=== PATIENT | male | born 1985 | race Caucasian/White ===

== ENCOUNTER 2020-04-15 07:22 | Emergency (ER) | payer MEDICARE, MEDICAID, SELFPAY ==
[2020-04-15 07:23] VITALS: BP 115/84; PULSE 90; RESP 18; TEMP 36.6; O2SAT 98; BMI 22.0
--- NOTE | 2020-04-15 07:33 | ED.VIS.GEN ---
History of Present Illness Chief Complaint: Upper Extremity Injury Narrative: 34-year-old male with no significant past medical history presents with concern for left arm pain. States it is been hurting over the past 1 week. Denies any trauma. States that he feels he may have pulled a muscle. States that the pain is in his left shoulder and down into his left elbow. States it is worse with movement. Patient is getting good pain relief from naproxen. Patient was here visiting another patient and felt like he should be seen for this issue. Denies any numbness or tingling. Past Medical History - Allergies and Home Meds Allergies/Adverse Reactions: Allergies Penicillins Allergy (Verified 04/15/20 07:25) Unknown sumatriptan [From Imitrex] Allergy (Verified 04/15/20 07:25) Unknown sumatriptan succinate [From Imitrex] Allergy (Verified 04/15/20 07:25) Unknown amoxicillin [Amoxicillin] Adverse Reaction (Verified 04/15/20 07:25) Nausea/Vom/Diarrhea Primary Care Physician: [facility] ,Out of [Primary Care Provider] - Prior records reviewed: Yes Past Medical History: None Surgical History: noncontributory Smoking Status: Current some day smoker Alcohol: None Drugs: None Review of Systems General: Denies: Chills, Fever, Sweats Eyes: Denies: Visual changes - bilaterally, Diplopia ENT: Denies: Rhinorrhea, Sore throat Cardiovascular: Denies: Chest pain, Palpitations Respiratory: Denies: Dyspnea, Cough, Dyspnea on exertion Gastrointestinal: Denies: Abdominal pain, Nausea, Vomiting, Diarrhea, Melena, Hematochezia Genitourinary: Denies: Dysuria, Hematuria, Frequency Musculoskeletal: Reports: Myalgias, Arthralgias. Denies: Back pain, Extremity Pain Skin: Denies: Rash, Wounds Neurological: Denies: Headache, Weakness, Numbness Physical Exam Vital Signs/Narrative: Vital Signs Temp Pulse Resp BP Pulse Ox 04/15/20 07:23 98 F 90 18 115/84 H 98 Inital Vital Signs reviewed: Yes General: Well nourished, Well developed, No Acute Distress Head: Normocephalic, Atraumatic Eyes: Perrl, EOMI ENT: Moist mucous membranes, No rhinorrhea Neck: Supple, Nontender Cardiovascular: Regular rate, Regular rhythm, No murmurs Respiratory: No distress, CTA bilaterally, Chest nontender Abdomen: Soft, Nontender, Nondistended, Normal bowel sounds Back: Nontender, Normal Inspection Extremities: Nontender, No edema Skin: Normal color, No rash Neurological: Alert, Oriented x3, Cranial nerves II-XII grossly intact, Normal Strength, Normal Sensation Psychological: Normal affect, Normal Mood Diagnostic/Tx/Re-eval - Medical Decision Making Appears well and nontoxic. Vital signs within normal limits. No indication for imaging at this time. Patient will be given Conner wrap and advised on rest, ice, elevation, compression. Advised to continue with naproxen. Will be given family medicine follow-up if he has continued pain. Discharged home in stable condition. ED Disposition - Plan for ED Patient: Disposition: Home or Assisted Living Diagnosis: Muscle strain Instructions: Treating?Strains and Sprains, R.I.C.E. Referrals: Nay Rios MD [STAFF PHYSICIAN] -
[2020-04-15 07:55] VITALS: PULSE 88; RESP 17; O2SAT 97
== END 2020-04-15 08:00 | disposition home or self-care (01) ==
LOC: ED 07:56
PROVIDERS: Emergency Provider Emergency Medicine
DX: T14.8XXA Other injury of unspecified body region, initial encounter (principal); X58.XXXA Exposure to other specified factors, initial encounter
CPT/HCPCS: 99282

== ENCOUNTER 2021-06-10 15:57 | Emergency (ER) | payer MEDICARE, MEDICAID, SELFPAY ==
[2021-06-10 15:57] VITALS: BP 125/73; PULSE 104; RESP 16; TEMP 37.9; O2SAT 95; BMI 21.2
--- NOTE | 2021-06-10 17:34 | EDS_ITS ---
HPI History of Present Illness Chief Complaint: General Illness Detail of Chief Complaint: 2-week history of respiratory symptoms. Informant: patient Onset/Context/Timing Onset: Weeks Context: Gradual Onset Timing: Continuous Current Severity: Mild Maximum Severity: Mild Narrative Narrative: 35-year-old male no sniffing past medical history. Since last 2 weeks he has had nasal drainage and cough. Intermittent subjective fever and chills. He was not vaccinated. He saw his primary care physician to provide a Z-Phillip for possible sinusitis. He is also on Mucinex. He denies any hemoptysis. He denies any significant shortness of breath. Prior similar symptoms: No Recent Illness/Hospitalization: No PFSH PFSH Home Medications Omeprazole [Prilosec] 40 mg PO DAILY 06/10/17 [History Last Taken Unknown] buspirone 10 mg PO TID PRN 06/10/17 [History Last Taken Unknown] dicyclomine 20 mg PO 4X/DAY PRN PRN 06/10/17 [History Last Taken Unknown] famotidine [Pepcid] 40 mg PO QHS 06/10/17 [History Last Taken Unknown] loratadine [Allergy Relief] 10 mg PO DAILY 06/10/17 [History Last Taken Unknown] melatonin-pyridoxine HCl (B6) 1 ea PO QHS 06/10/17 [History Last Taken Unknown] ondansetron [Zofran Odt] 8 mg PO Q8H PRN PRN 06/10/17 [History Last Taken Unknown] promethazine 25 mg PO Q6H PRN PRN 06/10/17 [History Last Taken Unknown] naproxen 500 mg PO BID PRN PRN #10 tab 08/22/17 [Rx Last Taken Unknown] dexamethasone [Decadron] 6 mg PO DAILY 6 Days #6 tab 06/10/21 [Rx Last Taken Unknown] Allergy/AdvReac Type Severity Reaction Status Date / Time Penicillins Allergy Unknown Verified 06/10/21 16:03 sumatriptan [From Imitrex] Allergy Unknown Verified 06/10/21 16:03 sumatriptan succinate Allergy Unknown Verified 06/10/21 16:03 [From Imitrex] amoxicillin [Amoxicillin] AdvReac Nausea/Vom/ Verified 06/10/21 16:03 Diarrhea Social History Smoking Status: Current every day smoker tobacco type: cigarettes ROS ROS ED ROS Narrative Fever, chills and cough Review of Systems ROS Unobtainable: Denies due to encephalopathy Constitutional Constitutional ED: Reports chills and fever(s) Eyes Eyes: Denies change in vision ENT ENT ED: Denies ear pain or sore throat Cardiovascular Cardiovascular: Denies chest pain Respiratory/Chest Respiratory/Chest: Reports cough; Denies dyspnea Gastrointestinal Gastrointestinal: Denies abdominal pain, diarrhea, nausea or vomiting Genitourinary Genitourinary ED: Denies dysuria or hematuria Musculoskeletal Musculoskeletal: Reports myalgias Integumentary Denies rash Neurologic Neurologic: Denies headache(s) Psychiatric Psychiatric: Denies depression Endocrine Endocrinology: Denies polyuria Allergic/Immunologic Allergic/Immunologic ED: Denies urticaria EXAM Physical Exam Narrative Exam Narrative: Well-appearing young male no acute distress. Vital signs stable. Low-grade temperature 100.3. Does not look septic or toxic. HEENT exam unremarkable. Neck nontender no lymphadenopathy. Lungs clear to auscultation bilaterally. No rales rhonchi or wheezing no distress. Heart regular rhythm rate about 100 no murmur. Abdomen soft nontender. Moving all 4 extremities. Calves nontender no edema no cords. Neurologically is awake alert with no focal motor deficits. Const Vital Signs: 06/10/21 15:57 06/10/21 17:33 Temperature 100.3 F H Temperature Source Oral Pulse Rate 104 H Respiratory Rate 16 Respiratory Effort Normal Non-Labored Respiratory Pattern Normal Blood Pressure 125/73 H Blood Pressure Mean 90 Pulse Ox 95 Oxygen Delivery Method Room Air Positive well nourished and well developed; Negative for obese, cachectic, contractures or unkempt General Appearance ED: well developed and NAD; Negative for unkempt, cachectic, contractures, cyanotic or diaphoretic Nutritional Appearance: Negative for cachectic or obese HEENT Reports moist mucous membranes Negative for trauma or tenderness Eyes PERRL and EOMs intact bilaterally Neck no lymphadenopathy, supple and no JVD General: Negative for tenderness Chest Wall inspection of chest normal Resp normal respiratory effort and clear to auscultation bilaterally Auscultation: Negative for rales, rhonchi or wheezes Cardio regular rate, regular rhythm, S1 normal heart sound, S2 normal heart sound and no murmurs GI normal to inspection, nondistended, normoactive bowel sounds, non-tender, non- distended and no masses Inspection: Negative for abdominal distention Auscultation: normoactive bowel sounds Palpation: soft; Negative for tender, guarding or rebound tenderness present Back/Spine no CVA tenderness Extremity normal to inspection General Extremety ED: Negative for edema or tenderness General Extremity: Negative for edema Neuro oriented x3 and CN's II-XII intact bilaterally Sensorium / Orientation: alert; Negative for lethargic or stuporous Motor Exam: strength 5/5 throughout Psych mental status grossly normal Appearance: Negative for unkempt Skin no rashes or lesions noted and no wounds MDM MDM MDM Narrative Medical decision making narrative: Patient with Covid. His exam is benign. He is not hypoxic and altogether needs a further testing. He will continue his current antibiotic Zithromax. I explained he may not think that would do anything if he has Covid alone. If there is an underlying pneumonia it may be beneficial. He does not need a chest x-ray. He will be started on Decadron once a day for 7 days. First dose given in ER. Follow-up with his primary care physician. Lab Data Attestation: I reviewed the patient's lab results. Lab results narrative: Covid positive. Discharge Plan Triage Chief Complaint: General Illness ED Provider: Marco Antonio Cintron Dx/Rx/DC Orders Clinical Impression: COVID-19 Instructions: Coronavirus Disease 2019 (COVID-19): Overview Prescriptions: New dexamethasone [Decadron] 6 mg tablet 6 mg PO DAILY 6 Days Qty: 6 RF: 0 No Action buspirone 5 MG tablet 10 mg PO TID PRN (Reason: Anxiety) RF: 0 ondansetron [Zofran ODT] 8 MG tablet,disintegrating 8 mg PO Q8H PRN PRN (Reason: Nausea) RF: 0 promethazine 25 MG tablet 25 mg PO Q6H PRN PRN (Reason: Nausea) RF: 0 dicyclomine 10 MG capsule 20 mg PO 4X/DAY PRN PRN (Reason: Pain) RF: 0 loratadine [Allergy Relief (loratadine)] 10 MG tablet 10 mg PO DAILY RF: 0 melatonin-pyridoxine HCl (B6) 1 EACH tablet, IR and ER, biphasic 1 ea PO QHS RF: 0 Omeprazole [Prilosec] 40 MG capsule 40 mg PO DAILY RF: 0 famotidine [Pepcid] 40 MG tablet 40 mg PO QHS RF: 0 naproxen 500 MG tablet 500 mg PO BID PRN PRN (Reason: Pain) Qty: 10 RF: 0 Primary Care Provider: Care Physician,No Primary Referrals: Care Physician,No Primary [Primary Care Provider] - Activity Restrictions/Additional Instructions: Plenty of fluids and rest. Tylenol for fever. Decadron which is a steroid once a day for the next 7 days. Follow-up with your doctor if you are not improving or return if you feel a lot worse. Disposition Disposition: Home, Self Care
[2021-06-10] MEDS: dexAMETHasone 4 MG Tablet 6 MG PO (17:54)
[2021-06-10 17:59] VITALS: PULSE 94; RESP 17; O2SAT 97
== END 2021-06-10 18:00 | disposition home or self-care (01) ==
LOC: ED 17:45
PROVIDERS: Emergency Provider Emergency Medicine
DX: U07.1 COVID-19 (principal); F17.210 Nicotine dependence, cigarettes, uncomplicated
CPT/HCPCS: 87426; 99284

== ENCOUNTER 2021-06-24 06:56 | Emergency (ER) | payer MEDICARE, MEDICAID, SELFPAY ==
[2021-06-24 06:57] VITALS: BP 98/82; PULSE 100; RESP 24; TEMP 37; O2SAT 90; BMI 21.4
--- NOTE | 2021-06-24 07:02 | ED.VIS.GI ---
HPI HPI - GI History of Present Illness Chief Complaint: Abd Pain Informant: patient and EMS Abdominal Pain/Flank Pain Onset: Weeks Context: Sudden Onset Timing: Intermittent and Waxes and wanes Quality: Aching and Burning Location: Diffuse Current Severity: Mild Maximum Severity: Moderate Worsened by: Nothing Relieved by: Nothing Nausea/Vomiting/Emesis GI Symptom: Positive for Nausea; Negative for Vomiting Onset: Today Severity: Mild Diarrhea/Melena/Hematochezia GI Symptom: Negative for Diarrhea, Melena and Hematochezia Associated Symptoms Associated Symptoms: Negative for Dysuria, Frequency and Hematuria Narrative Narrative: Patient is a 35-year-old male who arrived by ambulance because of abdominal pain. Squad informed me that walking from his residence to the ambulance without oxygen he desaturated. He apparently is on 3 L by nasal cannula. He was diagnosed on June 10 with Covid. He is on home oxygen. He was prescribed Decadron. He states he needs to see a activity aide. He states he needs a scope . He complains of diffuse crampy achy abdominal pain. He took an acid without improvement. He denies vomiting. He denies diarrhea. He denies black or maroon-colored stool. He is not on an anticoagulant. He also complains of generalized aches. He reported subjective fever. He has a past medical history of anxiety. He is presently on Prilosec and an antiemetic. Patient denies headache, visual, ocular auditory symptoms. He denies increased shortness of breath. He denies productive cough. He denies chest discomfort. Prior similar symptoms: Yes Recent Illness/Hospitalization: Yes (Recent visit and hospitalization at [facility] Medical History Anxiety Home Medications Omeprazole [Prilosec] 40 mg PO DAILY 06/10/17 [History Last Taken Unknown] buspirone 10 mg PO TID PRN 06/10/17 [History Last Taken Unknown] dicyclomine 20 mg PO 4X/DAY PRN PRN 06/10/17 [History Last Taken Unknown] famotidine [Pepcid] 40 mg PO QHS 06/10/17 [History Last Taken Unknown] loratadine [Allergy Relief] 10 mg PO DAILY 06/10/17 [History Last Taken Unknown] melatonin-pyridoxine HCl (B6) 1 ea PO QHS 06/10/17 [History Last Taken Unknown] ondansetron [Zofran Odt] 8 mg PO Q8H PRN PRN 06/10/17 [History Last Taken Unknown] promethazine 25 mg PO Q6H PRN PRN 06/10/17 [History Last Taken Unknown] naproxen 500 mg PO BID PRN PRN #10 tab 08/22/17 [Rx Last Taken Unknown] dexamethasone [Decadron] 6 mg PO DAILY 6 Days #6 tab 06/10/21 [Rx Last Taken Unknown] Allergy/AdvReac Type Severity Reaction Status Date / Time Penicillins Allergy Unknown Verified 06/24/21 06:57 sumatriptan [From Imitrex] Allergy Unknown Verified 06/24/21 06:57 sumatriptan succinate Allergy Unknown Verified 06/24/21 06:57 [From Imitrex] amoxicillin [Amoxicillin] AdvReac Nausea/Vom/ Verified 06/24/21 06:57 Diarrhea Social History (Updated 06/24/21 @ 07:[address] Michel Stephenson MD) household members: none Smoking Status: Former smoker alcohol intake: current details: Patient states he currently is not drinking any alcoholic beverages substance use type: does not use ROS ROS ED Constitutional Constitutional ED: Reports fever(s); Denies chills, subjective, sweats or weight loss ENT ENT ED: Denies ear pain, rhinorrhea or sore throat Cardiovascular Cardiovascular: Denies chest pain, orthopnea, palpitations or paroxysmal nocturnal dyspnea Respiratory/Chest Respiratory/Chest: Reports cough, dyspnea and dyspnea on exertion; Denies orthopnea, paroxysmal nocturnal dyspnea or sputum Gastrointestinal Gastrointestinal: Reports abdominal pain and nausea; Denies constipation, diarrhea, melena or vomiting Genitourinary Genitourinary ED: Denies dysuria, hematuria or urinary frequency Musculoskeletal Musculoskeletal: Reports arthralgias and myalgias; Denies back pain or neck pain Integumentary Denies rash Neurologic Neurologic: Reports weakness; Denies headache(s) or paresthesias Psychiatric Psychiatric: Reports anxiety and depression Hematologic/Lymphatic Hematologic/Lymphatic: Denies easy bleeding or easy bruising EXAM Physical Exam Const Vital Signs: 06/24/21 06:57 Temperature 98.6 F Temperature Source Temporal Pulse Rate 100 Respiratory Rate 24 H Blood Pressure 98/82 H Blood Pressure Mean 87 Pulse Ox 90 Oxygen Delivery Method Room Air Positive well nourished and well developed General Appearance ED: well developed HEENT Reports TM's clear and moist mucous membranes normocephalic and atraumatic Tympanic Membrane ED: Yes TM's clear Eyes PERRL and EOMs intact bilaterally General Eye ED: Negative for pale conjunctiva or scleral icterus Neck no lymphadenopathy, supple and no JVD Resp normal respiratory effort and No clear to auscultation bilaterally Auscultation: rales bilateral base Cardio regular rate, regular rhythm, S1 normal heart sound, S2 normal heart sound and no murmurs GI non-distended and no masses; Negative for non-tender Auscultation: normoactive bowel sounds Palpation: soft and tender epigastric; Negative for guarding or rigid Back/Spine no CVA tenderness Thoracic Spine / Upper Back: Negative for thoracic spinal tenderness Lumbar Spine / Lower Back: Negative for lumbar spinal tenderness Extremity full ROM General Extremety ED: Negative for edema or tenderness General Extremity: Negative for edema Neuro CN's II-XII intact bilaterally and moves all extremities Sensorium / Orientation: alert, oriented to person, oriented to place and oriented to time Psych thought process normal Mood & Affect: depressed Skin no wounds Lesions: no lesions Rashes: no rashes MDM MDM MDM Narrative Medical decision making narrative: Patient with abdominal pain and may represent abdominal pain unknown etiology, biliary disease, peptic ulcer disease versus Covid. Patient was treated with Bentyl and GI cocktail. CBC was obtained assess white count and H&H. Comprehensive metabolic panel to assess liver enzymes and renal function. Lipase was ordered since he is on pancreatic enzymes. Lab Data Attestation: I reviewed the patient's lab results. Lab results narrative: CBC is unremarkable. Comprehensive metabolic panel was marked for elevated AST and ALT. This has been seen with Covid. Patient does have Covid. Lipase was normal. Patient requested antiemetic prior to discharge. Labs: Laboratory Results - last 24 hr 06/24/21 06/24/21 07:30 07:30 WBC 5.3 RBC 4.63 Hgb 14.7 Hct 42.5 MCV 91.8 MCH 31.7 MCHC 34.6 RDW Std Deviation 39.5 RDW Coeff of Iggy 11.8 Plt Count 280 MPV 9.1 Immature Gran % (Auto) 4.000 H Neut % (Auto) 49.0 Lymph % (Auto) 28.6 Addison % (Auto) 15.8 H Eos % (Auto) 1.5 Baso % (Auto) 1.1 H Absolute Neuts (auto) 2.6 Absolute Lymphs (auto) 1.50 Nucleated RBC % 0 Sodium 137 Potassium 3.9 Chloride 103 Carbon Dioxide 30.0 Anion Gap 4 L BUN 12 Creatinine 0.74 Estim Creat Clear Calc 120.70 Est GFR (MDRD) Af Amer 155 Est GFR (MDRD) Non-Af 128 BUN/Creatinine Ratio 16.2 Glucose 99 Calcium 9.0 Total Bilirubin 0.50 AST 98 H ALT 136 H Alkaline Phosphatase 77 Total Protein 7.3 Albumin 2.5 L Globulin 4.8 H Albumin/Globulin Ratio 0.5 L Lipase 192 Discharge Plan Triage Chief Complaint: Abd Pain ED Provider: Michel Stephenson Dx/Rx/DC Orders Clinical Impression: COVID-19, Elevated liver transaminase level, Abdominal pain Instructions: Coronavirus Disease 2019 (COVID-19): Caring for Yourself or Others Prescriptions: No Action buspirone 5 MG tablet 10 mg PO TID PRN (Reason: Anxiety) RF: 0 ondansetron [Zofran ODT] 8 MG tablet,disintegrating 8 mg PO Q8H PRN PRN (Reason: Nausea) RF: 0 promethazine 25 MG tablet 25 mg PO Q6H PRN PRN (Reason: Nausea) RF: 0 dicyclomine 10 MG capsule 20 mg PO 4X/DAY PRN PRN (Reason: Pain) RF: 0 loratadine [Allergy Relief (loratadine)] 10 MG tablet 10 mg PO DAILY RF: 0 melatonin-pyridoxine HCl (B6) 1 EACH tablet, IR and ER, biphasic 1 ea PO QHS RF: 0 Omeprazole [Prilosec] 40 MG capsule 40 mg PO DAILY RF: 0 famotidine [Pepcid] 40 MG tablet 40 mg PO QHS RF: 0 naproxen 500 MG tablet 500 mg PO BID PRN PRN (Reason: Pain) Qty: 10 RF: 0 dexamethasone [Decadron] 6 mg tablet 6 mg PO DAILY 6 Days Qty: 6 RF: 0 Primary Care Provider: Care Physician,No Primary Referrals: Care Physician,No Primary [Primary Care Provider] - Doctor,Your [STAFF PHYSICIAN] - 1 Week if not improving Disposition Disposition: Home, Self Care
[2021-06-24] MEDS: Mag Hydrox/Al Hydrox/Simeth 30 ML UDC PO (07:37)
[2021-06-24 07:38] LABS: Absolute Neutrophil Count 2.6 X10^3/uL (2.0-7.7); Basophil# 0.06 X10^3/uL; Basophil% 1.1 % (0-1); Eosinophil# 0.08 X10^3/uL; Eosinophils% 1.5 % (0-5); Hematocrit 42.5 % (40-54); Hemoglobin 14.7 g/dL (13.0-16.5); Lymphocyte % 28.6 % (19-41); Mean Corp Hgb Conc 34.6 g/dL (32-36); Mean Corpuscular Hgb 31.7 pg (27.0-32.0); Mean Corpuscular Volume 91.8 fL (80-94); Mean Platelet Vol. 9.1 fl (6.2-12.0); Monocyte# 0.83 X10^3/uL; Monocyte% 15.8 % (0-10); NRBC Flagged by Analyzer 0 % (0-5); Neutrophil # 2.57 X10^3/uL (2.7-7.7); Platelet Count 280 K/mm3 (150-450); RBC Distribution Width CV 11.8 % (11.6-14.6); RBC Distribution Width SD 39.5 fl (35.1-43.9); Red Blood Count 4.63 M/mm3 (4.6-6.2); White Blood Count 5.3 K/mm3 (4.4-11.0)
[2021-06-24 08:05] LABS: ALB/GLOB Ratio 0.5 RATIO (0.9-2.4); AST(SGOT) 98 U/L (15-37); Alanine Aminotransfer ALT/SGPT 136 U/L (16-61); Albumin, Serum 2.5 g/dL (3.2-5.0); Alkaline Phosphatase 77 U/L (45-117); Anion Gap 4 (5-15); BUN 12 mg/dL (7-18); BUN/Creat Ratio 16.2 RATIO (10-20); Chloride 103 mmol/L (98-107); Creatinine, Serum 0.74 mg/dL (0.70-1.30); EST Glomerular Filtration Rate 128 mL/min (>60); Est Glom Filt Rate - Afr Amer 155 mL/min (>60); Globulin 4.8 g/dL (2.2-4.2); Glucose 99 mg/dL (74-106); Lipase 192 U/L (73-393); Potassium 3.9 mmol/L (3.5-5.1); Protein, Total 7.3 g/dL (6.4-8.2); Sodium Level 137 mmol/L (136-145)
[2021-06-24] MEDS: Ondansetron ODT 4 MG Tablet PO (09:10)
[2021-06-24 09:11] VITALS: PULSE 78; RESP 18; O2SAT 93
== END 2021-06-24 10:34 | disposition home or self-care (01) ==
PROVIDERS: Emergency Provider Emergency Medicine
DX: U07.1 COVID-19 (principal); R74.01 Elevation of levels of liver transaminase levels; R10.9 Unspecified abdominal pain; Z87.891 Personal history of nicotine dependence
CPT/HCPCS: 36415; 80053; 83690; 85025; 99285

== ENCOUNTER 2021-06-27 01:59 | Emergency (ER) | payer MEDICARE, MEDICAID, SELFPAY ==
[2021-06-27 02:00] VITALS: BP 127/97; PULSE 124; RESP 26; TEMP 36.8; O2SAT 89; BMI 20.2
[2021-06-27 02:14] VITALS: PULSE 115; RESP 20; O2SAT 94
--- NOTE | 2021-06-27 02:33 | EX.ED.DYSGE1 ---
HPI History of Present Illness Chief Complaint: Anxiety Informant: patient Onset/Context/Timing Onset: Days Current Severity: Moderate Maximum Severity: Moderate Narrative Narrative: Patient presents secondary to anxiety. He states he is a history of anxiety and was diagnosed with Covid couple weeks ago. He is on home oxygen for Covid. He states this has made his anxiety worse. Tonight he could not get his mind to stop racing. He tried his normal medications at home approximately 6 or 7 hours ago without improvement. He called the squad early this morning. [facility] Medical History Anxiety Home Medications Omeprazole [Prilosec] 40 mg PO DAILY 06/10/17 [History Last Taken Unknown] buspirone 10 mg PO TID PRN 06/10/17 [History Last Taken Unknown] dicyclomine 20 mg PO 4X/DAY PRN PRN 06/10/17 [History Last Taken Unknown] famotidine [Pepcid] 40 mg PO QHS 06/10/17 [History Last Taken Unknown] loratadine [Allergy Relief] 10 mg PO DAILY 06/10/17 [History Last Taken Unknown] melatonin-pyridoxine HCl (B6) 1 ea PO QHS 06/10/17 [History Last Taken Unknown] ondansetron [Zofran Odt] 8 mg PO Q8H PRN PRN 06/10/17 [History Last Taken Unknown] promethazine 25 mg PO Q6H PRN PRN 06/10/17 [History Last Taken Unknown] naproxen 500 mg PO BID PRN PRN #10 tab 08/22/17 [Rx Last Taken Unknown] dexamethasone [Decadron] 6 mg PO DAILY 6 Days #6 tab 06/10/21 [Rx Last Taken Unknown] Allergy/AdvReac Type Severity Reaction Status Date / Time Penicillins Allergy Unknown Verified 06/24/21 06:57 sumatriptan [From Imitrex] Allergy Unknown Verified 06/24/21 06:57 sumatriptan succinate Allergy Unknown Verified 06/24/21 06:57 [From Imitrex] amoxicillin [Amoxicillin] AdvReac Nausea/Vom/ Verified 06/24/21 06:57 Diarrhea Social History household members: none Smoking Status: Former smoker alcohol intake: current details: Patient states he currently is not drinking any alcoholic beverages substance use type: does not use ROS ROS ED Constitutional Constitutional ED: Reports fever(s) and subjective ENT ENT ED: Denies rhinorrhea or sore throat Cardiovascular Cardiovascular: Denies chest pain Respiratory/Chest Respiratory/Chest: Reports cough and dyspnea Gastrointestinal Gastrointestinal: Denies diarrhea or vomiting Musculoskeletal Musculoskeletal: Reports myalgias Integumentary Denies rash Neurologic Neurologic: Denies headache(s) Psychiatric Psychiatric: Reports anxiety EXAM Physical Exam Const Vital Signs: 06/27/21 02:00 06/27/21 02:10 06/27/21 02:14 Temperature 98.2 F Temperature Source Temporal Pulse Rate 124 H 115 H Respiratory Rate 26 H 20 H Respiratory Effort Normal Respiratory Pattern Normal Blood Pressure 127/97 H Blood Pressure Mean 107 Pulse Ox 89 94 Oxygen Delivery Method Room Air Nasal Cannula Oxygen Flow Rate (L/min) 2 06/27/21 04:30 Temperature Temperature Source Pulse Rate 102 H Respiratory Rate 18 Respiratory Effort Respiratory Pattern Blood Pressure Blood Pressure Mean Pulse Ox 94 Oxygen Delivery Method Nasal Cannula Oxygen Flow Rate (L/min) 2 Positive well nourished and well developed General Appearance ED: well developed Eyes PERRL and EOMs intact bilaterally Neck supple Resp normal respiratory effort and clear to auscultation bilaterally Resp Narrative: Respiratory rate equals 17 at the time of my exam. Cardio regular rhythm Rate: tachycardic and other Other Details: Heart rate equals 104 at the time of my exam. GI normal to inspection, nondistended, normoactive bowel sounds and non-tender Palpation: soft Extremity normal to inspection Neuro oriented x3 Sensorium / Orientation: alert Psych Mood & Affect: anxious Skin no rashes or lesions noted MDM MDM MDM Narrative Medical decision making narrative: Patient was given 2 doses of Vistaril. He continued to complain of feeling very anxious. He was given 1 mg of p.o. Ativan. On repeat evaluation patient is sleeping comfortably. He will be discharged to home. He is referred to counseling center for help with his anxiety. Discharge Plan Triage Chief Complaint: Anxiety ED Provider: Pam Bear Dx/Rx/DC Orders Clinical Impression: Anxiety, COVID-19 Instructions: ED Anxiety Reaction Prescriptions: No Action buspirone 5 MG tablet 10 mg PO TID PRN (Reason: Anxiety) RF: 0 ondansetron [Zofran ODT] 8 MG tablet,disintegrating 8 mg PO Q8H PRN PRN (Reason: Nausea) RF: 0 promethazine 25 MG tablet 25 mg PO Q6H PRN PRN (Reason: Nausea) RF: 0 dicyclomine 10 MG capsule 20 mg PO 4X/DAY PRN PRN (Reason: Pain) RF: 0 loratadine [Allergy Relief (loratadine)] 10 MG tablet 10 mg PO DAILY RF: 0 melatonin-pyridoxine HCl (B6) 1 EACH tablet, IR and ER, biphasic 1 ea PO QHS RF: 0 Omeprazole [Prilosec] 40 MG capsule 40 mg PO DAILY RF: 0 famotidine [Pepcid] 40 MG tablet 40 mg PO QHS RF: 0 naproxen 500 MG tablet 500 mg PO BID PRN PRN (Reason: Pain) Qty: 10 RF: 0 dexamethasone [Decadron] 6 mg tablet 6 mg PO DAILY 6 Days Qty: 6 RF: 0 Primary Care Provider: Care Physician,No Primary Referrals: Counseling,Center [GROUP OF PHYSICIANS] - As soon as possible Care Physician,No Primary [Primary Care Provider] - Disposition Disposition: Home, Self Care
[2021-06-27] MEDS: hydrOXYzine PAM 25 MG Capsule PO ×2 (02:50→04:01)
[2021-06-27 04:30] VITALS: PULSE 102; RESP 18; O2SAT 94
[2021-06-27] MEDS: LORazepam 1 MG Tablet PO (05:16)
== END 2021-06-27 09:07 | disposition home or self-care (01) ==
PROVIDERS: Emergency Provider Emergency Medicine
DX: F41.9 Anxiety disorder, unspecified (principal); U07.1 COVID-19; Z87.891 Personal history of nicotine dependence
CPT/HCPCS: 99285; A4216

== ENCOUNTER 2021-06-28 15:08 | Observation (INO) | payer MEDICARE, MEDICAID, SELFPAY ==
[2021-06-28 15:08] VITALS: BP 124/77; PULSE 117; RESP 18; TEMP 36.1; O2SAT 94; BMI 21.2
[2021-06-28 19:02] VITALS: O2SAT 92
[2021-06-28 19:10] VITALS: O2SAT 98
--- NOTE | 2021-06-28 19:26 | RAD_ITS ---
STUDY: X-RAY CHEST REASON FOR EXAM: Male, 35 years old. cough TECHNIQUE: AP COMPARISON: None. FINDINGS: Multilobar reticular and consolidative opacities throughout the lungs and There is no demonstrated pleural abnormality. Normal size heart. Normal mediastinum and chen. Normal visualized pulmonary arteries. Normal visualized aortic arch and descending thoracic aorta. Normal visualized thoracic spine. Normal visualized ribs, clavicles, and shoulders. There is no demonstrated abnormality of the visualized soft tissue structures of the upper abdomen. RAD/Chest 1 View (Portable) IMPRESSION: Multifocal infiltrates with features commonly reported with COVID pneumonia. Electronically Signed: Nicholas Clinton MD (Brooks) at 20:01 EDT , Service support ,
--- NOTE | 2021-06-28 20:00 | EKG12_ITS ---
Test Reason : ANXIETY Blood Pressure : / mmHG Vent. Rate : 078 BPM Atrial Rate : 078 BPM P-R Int : 118 ms QRS Dur : 094 ms QT Int : 364 ms P-R-T Axes : 026 010 027 degrees QTc Int : 414 ms Normal sinus rhythm with sinus arrhythmia Normal ECG Confirmed by DANIS LOBO, KOKI ([id number]), editor at large JARAD GIMENEZ ([id number]) on 06/30/2021 1:25:34 PM Referred By: IVANNA Confirmed By:KOKI MOSCOSO MD
--- NOTE | 2021-06-28 20:25 | EX.ED.DYSGE1 ---
HPI History of Present Illness Chief Complaint: Anxiety Informant: patient Narrative Narrative: 35-year-old male presenting with shortness of breath and anxiety. Patient was diagnosed with Covid June 10. He is on home O2 for Covid. He presents due to worsening shortness of breath. He states he did not know he had Covid. He is very anxious on arrival. He feels he cannot care for himself at home. Prior similar symptoms: Yes Recent Illness/Hospitalization: No PFSH PFSH Medical History Anxiety Tobacco use Home Medications buspirone 10 mg PO TID PRN 06/10/17 [History Last Taken Unknown] dicyclomine 20 mg PO 4X/DAY PRN PRN 06/10/17 [History Last Taken Unknown] famotidine [Pepcid] 40 mg PO QHS 06/10/17 [History Last Taken Unknown] loratadine [Allergy Relief] 10 mg PO DAILY 06/10/17 [History Last Taken Unknown] melatonin-pyridoxine HCl (B6) 1 ea PO QHS 06/10/17 [History Last Taken Unknown] ondansetron [Zofran Odt] 8 mg PO Q8H PRN PRN 06/10/17 [History Last Taken Unknown] promethazine 25 mg PO Q6H PRN PRN 06/10/17 [History Last Taken Unknown] naproxen 500 mg PO BID PRN PRN #10 tab 08/22/17 [Rx Last Taken Unknown] quetiapine 06/28/21 [History Last Taken Unknown] Allergy/AdvReac Type Severity Reaction Status Date / Time Penicillins Allergy Unknown Verified 06/24/21 06:57 sumatriptan [From Imitrex] Allergy Unknown Verified 06/24/21 06:57 sumatriptan succinate Allergy Unknown Verified 06/24/21 06:57 [From Imitrex] amoxicillin [Amoxicillin] AdvReac Nausea/Vom/ Verified 06/24/21 06:57 Diarrhea Family History no significant family his Surgical History (Updated 06/28/21 @ 22:[address] María Merchant MD) No significant past surgical history Surgical History no surgical history Social History (Updated 06/28/21 @ 22:[address] María Merchant MD) household members: family Smoking Status: Former smoker Smokeless tobacco user: chewing tobacco how long ago did patient quit smoking: Former cigarette tobacco use, now chew tobacco 2-3 wads daily. alcohol intake: never details: Patient states he currently is not drinking any alcoholic beverages substance use type: does not use ROS ROS ED Constitutional Constitutional ED: Denies fever(s) Eyes Eyes: Denies change in vision ENT ENT ED: Reports rhinorrhea; Denies sore throat Cardiovascular Cardiovascular: Reports palpitations; Denies chest pain Respiratory/Chest Respiratory/Chest: Reports cough, dyspnea and dyspnea on exertion Gastrointestinal Gastrointestinal: Denies abdominal pain, diarrhea, nausea or vomiting Genitourinary Genitourinary ED: Denies dysuria Musculoskeletal Musculoskeletal: Denies myalgias Integumentary Denies rash Neurologic Neurologic: Denies headache(s) Psychiatric Psychiatric: Reports anxiety; Denies suicidal thoughts EXAM Physical Exam Const Vital Signs: 06/28/21 15:08 06/28/21 19:02 06/28/21 19:10 Temperature 97 F L Temperature Source Temporal Pulse Rate 117 H Respiratory Rate 18 Blood Pressure 124/77 H Blood Pressure Mean 92 Pulse Ox 94 92 98 Oxygen Delivery Method Nasal Cannula Nasal Cannula Nasal Cannula Oxygen Flow Rate (L/min) 2 2 2 06/28/21 22:53 Temperature 96.6 F L Temperature Source Temporal Pulse Rate 86 Respiratory Rate 18 Blood Pressure 122/74 H Blood Pressure Mean 90 Pulse Ox 96 Oxygen Delivery Method Nasal Cannula Oxygen Flow Rate (L/min) 2 Positive well nourished and well developed General Appearance ED: well developed HEENT Reports normocephalic and head/scalp atraumatic Eyes PERRL and EOMs intact bilaterally Neck supple General: Negative for tenderness Chest Wall inspection of chest normal Resp normal respiratory effort Auscultation: diminished lung sounds Cardio regular rate and regular rhythm GI non-tender and non-distended Palpation: soft; Negative for guarding or rebound tenderness present no CVA tenderness Extremity normal to inspection Neuro oriented x3 Sensorium / Orientation: alert Psych Mood & Affect: anxious MDM MDM MDM Narrative Medical decision making narrative: Pulse ox on 2 L is in the mid 80s. Chest x-ray was obtained and shows multifocal infiltrates. CBC shows white count 14.3. Chemistries unremarkable. Troponin is negative. D-dimer 0.62. Due to elevated D-dimer, CTA chest was obtained which shows no central PE, pneumomediastinum, no pneumothorax, multifocal infiltrates consistent with Covid pneumonia. Patient has been requiring 3 to 4 L nasal cannula oxygen. Discussed with hospitalist for observation. Lab Data Attestation: I reviewed the patient's lab results. Labs: Laboratory Results - last 24 hr 06/28/21 06/28/21 06/28/21 20:17 20:17 20:17 WBC 14.3 H RBC 4.76 Hgb 15.3 Hct 44.5 MCV 93.5 MCH 32.1 H MCHC 34.4 RDW Std Deviation 42.3 RDW Coeff of Iggy 12.3 Plt Count 323 MPV 9.3 Immature Gran % (Auto) 0.700 Neut % (Auto) 83.0 H Lymph % (Auto) 9.2 L Monona % (Auto) 6.9 Eos % (Auto) 0.0 Baso % (Auto) 0.2 Absolute Neuts (auto) 11.9 H Absolute Lymphs (auto) 1.32 Nucleated RBC % 0 D-Dimer Quant (PE/DVT) 0.62 H* Sodium 136 Potassium 3.8 Chloride 102 Carbon Dioxide 30.0 Anion Gap 4 L BUN 9 Creatinine 0.82 Estim Creat Clear Calc 115.09 Est GFR (MDRD) Af Amer 139 Est GFR (MDRD) Non-Af 115 BUN/Creatinine Ratio 11.0 Glucose 105 Calcium 9.3 Total Bilirubin Direct Bilirubin AST ALT Alkaline Phosphatase Troponin I High Sens 8 Total Protein Albumin Globulin 06/28/21 20:17 WBC RBC Hgb Hct MCV MCH MCHC RDW Std Deviation RDW Coeff of Iggy Plt Count MPV Immature Gran % (Auto) Neut % (Auto) Lymph % (Auto) Monona % (Auto) Eos % (Auto) Baso % (Auto) Absolute Neuts (auto) Absolute Lymphs (auto) Nucleated RBC % D-Dimer Quant (PE/DVT) Sodium Potassium Chloride Carbon Dioxide Anion Gap BUN Creatinine Estim Creat Clear Calc Est GFR (MDRD) Af Amer Est GFR (MDRD) Non-Af BUN/Creatinine Ratio Glucose Calcium Total Bilirubin 0.70 Direct Bilirubin 0.12 AST 40 H ALT 68 H Alkaline Phosphatase 78 Troponin I High Sens Total Protein 8.1 Albumin 3.2 Globulin 4.9 H Radiography Chest X-Ray - ED: 1 View, Read by ED Physician and Read by Radiologist Diagnostic Testing: Radiology Impression Chest X-Ray 06/28/21 19:26 IMPRESSION: Multifocal infiltrates with features commonly reported with COVID pneumonia. Electronically Signed: Nicholas Clinton MD (Brooks) at 20:01 EDT , Service support , Chest CTA 06/28/21 21:01 IMPRESSION: 1. No central segmental pulmonary embolism. 2. Pneumomediastinum. No pneumothorax. 3. Multifocal infiltrates with features commonly reported with COVID pneumonia. Electronically Signed: Nicholas Clinton MD (Brooks) at 21:39 EDT , Service support , EKG Initial EKG: Attestation: I personally reviewed and interpreted this EKG as follows: Interpretation: Sinus Rhythm and No Acute Injury Pattern Discharge Plan Dx/Rx/DC Orders Clinical Impression: Pneumonia due to COVID-19 virus, Hypoxia Disposition Disposition: Acute Care [facility]
[2021-06-28 20:26] LABS: Absolute Lymphocyte Count 1.32 X10^3/uL (0.83-4.51); Absolute Neutrophil Count 11.9 X10^3/uL (2.0-7.7); Basophil# 0.03 X10^3/uL; Basophil% 0.2 % (0-1); Hematocrit 44.5 % (40-54); Hemoglobin 15.3 g/dL (13.0-16.5); Lymphocyte # 1.32 X10^3/ul (0.83-4.51); Lymphocyte % 9.2 % (19-41); Mean Corp Hgb Conc 34.4 g/dL (32-36); Mean Corpuscular Hgb 32.1 pg (27.0-32.0); Mean Corpuscular Volume 93.5 fL (80-94); Mean Platelet Vol. 9.3 fl (6.2-12.0); Monocyte# 0.99 X10^3/uL; Monocyte% 6.9 % (0-10); NRBC Flagged by Analyzer 0 % (0-5); Neutrophil # 11.85 X10^3/uL (2.7-7.7); Platelet Count 323 K/mm3 (150-450); RBC Distribution Width CV 12.3 % (11.6-14.6); RBC Distribution Width SD 42.3 fl (35.1-43.9); Red Blood Count 4.76 M/mm3 (4.6-6.2); White Blood Count 14.3 K/mm3 (4.4-11.0)
[2021-06-28 20:44] LABS: D-Dimer Quantitative (DVT/PE) 0.62 FEU/ug/m (0.27-0.49)
--- NOTE | 2021-06-28 20:50 | HP.PCM.HOS_ITS ---
HPI - General General Date of Admission: 06/28/21 Date of Service: 06/28/21 Chief Complaint: Dyspnea, worsening, COVID Dx 06/10/21 on oxygen HPI Narrative The patient is a 35 y/o M w/ PMHx: Former cigarette tobacco use, now transitioned to Chew Tobacco, Severe Anxiety/Depression, Suspected possible Schizophrenia component, GERD who presents to the [facility] ED on 06/28/21 with significant increased anxiety and sensation of dyspnea despite appropriate oxygenation on supplemental 2 L nasal cannula originally diagnosed on 06/10/2021 in the ED secondary to fever, chills, headaches, cough and dyspnea. He was administered Decadron therapy which he notes completing. He frequently states he is afraid he is going to . He is unvaccinated. Work-up in the ED included T 97, heart rate 117, BP 124/77, respiratory rate 18, 92% on 2 L nasal cannula however did improved to 98% on 2 L, CBC with WBC 14.3, hemoglobin 15.3, platelet 323 with left shift, D-dimer 0.62, CMP with AST/ALT 40/68 otherwise not marked appearing, high-sensitivity troponin 8, chest x-ray with multifocal infiltrates consistent with Covid pneumonia, follow-up CTPA with no central segmental pulmonary embolism, evidence of moderate pneumomediastinum extending to the base of the neck, multifocal infiltrates consistent with Covid pneumonia. [facility] Medical History Anxiety Tobacco use Home Medications buspirone 10 mg PO TID PRN 06/10/17 [History Last Taken Unknown] dicyclomine 20 mg PO 4X/DAY PRN PRN 06/10/17 [History Last Taken Unknown] famotidine [Pepcid] 40 mg PO QHS 06/10/17 [History Last Taken Unknown] loratadine [Allergy Relief] 10 mg PO DAILY 06/10/17 [History Last Taken Unknown] melatonin-pyridoxine HCl (B6) 1 ea PO QHS 06/10/17 [History Last Taken Unknown] ondansetron [Zofran Odt] 8 mg PO Q8H PRN PRN 06/10/17 [History Last Taken Unknown] promethazine 25 mg PO Q6H PRN PRN 06/10/17 [History Last Taken Unknown] naproxen 500 mg PO BID PRN PRN #10 tab 08/22/17 [Rx Last Taken Unknown] quetiapine 06/28/21 [History Last Taken Unknown] Allergy/AdvReac Type Severity Reaction Status Date / Time Penicillins Allergy Unknown Verified 06/24/21 06:57 sumatriptan [From Imitrex] Allergy Unknown Verified 06/24/21 06:57 sumatriptan succinate Allergy Unknown Verified 06/24/21 06:57 [From Imitrex] amoxicillin [Amoxicillin] AdvReac Nausea/Vom/ Verified 06/24/21 06:57 Diarrhea Family History no significant family his no significant family history (Patient denies any marked maternal or paternal family history including heart disease, diabetes, cancer.) Surgical History (Updated 06/28/21 @ 22:[address] María Merchant MD) No significant past surgical history Surgical History no surgical history no surgical history Social History (Updated 06/28/21 @ 22:[address] María Merchant MD) household members: family Smoking Status: Former smoker Smokeless tobacco user: chewing tobacco how long ago did patient quit smoking: Former cigarette tobacco use, now chew tobacco 2-3 wads daily. alcohol intake: never details: Patient states he currently is not drinking any alcoholic beverages substance use type: does not use ROS ROS Narrative Admission Review of Systems: CONSTITUTIONAL: No weight loss, + fever, chills, weakness or fatigue. HEENT: Headache, congestion. Eyes: No visual loss, blurred vision, double vision or yellow sclerae. Ears, Nose, Throat: No hearing loss, sneezing, congestion, runny nose or sore throat. SKIN: No rash or itching, lesions, wounds. CARDIOVASCULAR: No chest pain, chest pressure or chest discomfort, palpitations, edema, orthopnea, syncopal events. RESPIRATORY: + shortness of breath, cough, No marked sputum, wheezing, h emoptysis. GASTROINTESTINAL: + anorexia, No nausea, vomiting or diarrhea, abdominal pain, melena, BRBPR. GENITOURINARY: No dysuria, frequency, urgency or retention. NEUROLOGICAL: + Headache, No dizziness, syncope, paralysis, ataxia, numbness or tingling in the extremities, focal weakness, change in bowel or bladder control, seizure. MUSCULOSKELETAL: + muscle, back pain, joint pain or stiffness. HEMATOLOGIC: No anemia, bleeding or bruising. LYMPHATICS: No enlarged nodes. No history of splenectomy. PSYCHIATRIC: + history of depression or anxiety. ENDOCRINOLOGIC: No reports of sweating, cold or heat intolerance. No polyuria or polydipsia. ALLERGIES: + history of asthma, hives, eczema or rhinitis. Vital Signs Vital Signs Vital Signs: 06/28/21 15:08 06/28/21 19:02 06/28/21 19:10 Temperature 97 F L Temperature Source Temporal Pulse Rate 117 H Respiratory Rate 18 Blood Pressure 124/77 H Blood Pressure Mean 92 Pulse Ox 94 92 98 Oxygen Delivery Method Nasal Cannula Nasal Cannula Nasal Cannula Oxygen Flow Rate (L/min) 2 2 2 Weight Weight: 140 lb Body Mass Index (BMI) 21.2 Physical Exam Narrative Physical Examination: General: Awake, alert, oriented x 3 and cooperative, seated upright in the ED bed, extremely anxious, frequently saying he is worried he is going to . Skin: Normal color, normal turgor, no icterus, no cyanosis. HEENT: AT/NC, EOMI, PERRLA, dry MM, no carotid bruits or JVD noted. Lungs: Significantly diminished, greater bases, poor effort, no rales, ronchi or wheezing. Heart: Tachycardic with regular rhythm; no gallop, rub audible. Abdomen: Soft, thin habitus, NTTP, ND, distant normal BS, no obvious evidence of HSM. Extremities: No cyanosis, clubbing, or edema. Neurological: Patient awake, alert, oriented as noted, cognitive function intact; pupils equally reactive to light and accommodation, cranial nerves II- XII grossly normal, moving all 4 extremities, no focal deficits, strength preserved. Psychiatric: Affect appears severely anxious, afraid he is going to secondary to Covid, unable to be reassured, history of depression and anxiety and suspect underlying potential schizophrenic component. Results Lab / Micro Data Result Diagrams: 06/28/21 20:17 06/28/21 20:17 Labs: Laboratory Results - last 24 hr 06/28/21 20:17: WBC 14.3 H, RBC 4.76, Hgb 15.3, Hct 44.5, MCV 93.5, MCH 32.1 H, MCHC 34.4, RDW Std Deviation 42.3, RDW Coeff of Iggy 12.3, Plt Count 323, MPV 9.3, Immature Gran % (Auto) 0.700, Neut % (Auto) 83.0 H, Lymph % (Auto) 9.2 L, M monty % (Auto) 6.9, Eos % (Auto) 0.0, Baso % (Auto) 0.2, Absolute Neuts (auto) 11.9 H, Absolute Lymphs (auto) 1.32, Nucleated RBC % 0 06/28/21 20:17: D-Dimer Quant (PE/DVT) 0.62 H* Radiology Impression Chest X-Ray 06/28/21 19:26 IMPRESSION: Multifocal infiltrates with features commonly reported with COVID pneumonia. Electronically Signed: Nicholas Clinton MD (Brooks) at 20:01 EDT , Service support , Assessment & Plan Assessment/Plan (1) Pneumonia due to COVID-19 virus: (2) Hypoxia: PLAN: The patient is a 35 y/o M w/ PMHx: Former cigarette tobacco use, now transitioned to Chew Tobacco, Severe Anxiety/Depression, Suspected possible Schizophrenia component, GERD who presents to the [facility] ED on 06/28/21 with si gnificant increased anxiety and sensation of dyspnea despite appropriate oxygenation on supplemental 2 L nasal cannula originally diagnosed on 06/10/2021 in the ED secondary to fever, chills, headaches, cough and dyspnea. 1. Acute Hypoxia secondary to Bilateral Pneumonia secondary to Acute Viral S yndrome, COVID-19 complicated by moderate pneumomediastinum: Will admit to the medical surgical floor, maintain on Covid precautions as patient would require 20 days of quarantine given severe case with oxygen supplementation with 2 additional days until completion, will maintain on oxygen with wean as tolerated to room air, PRN albuterol, HOB, IS parameters w/ pending sputum cultures, respiratory viral panel and urine antigens, will procalcitonin, CRP, CPK, Ferritin, LDH, trop and BNP, continue supportive care including q 2 hour turning including prone given no prone bed availability and judicious hydration. May need to consider pulmonary consultation given moderate pneumomediastinum extent. 2. Elevated LFTs, secondary to Covid as noted #1: Admission AST/LT 40/68, improving from most recently noted 06/24/2021 labs with AST/LT 98/136, continue to trend CMP. 3. Severe Anxiety, Questionable schizophrenic component: Will continue patient home psychiatric regimen including BuSpar, Seroquel, reports also being on risperidone but not on current list, will await clarification. 4. Chew Tobacco Abuse, former cigarette tobacco use: Encouraged cessation, NR if desired. Encourage continued cigarette tobacco cessation. 5. GERD: Will continue home famotidine regimen. 6. DVT prophylaxis: SCDs, Lovenox. Charges/Coding Visit Charges OBSV E&M: 00217 Initial observation care L3
[2021-06-28 20:55] LABS: Anion Gap 4 (5-15); BUN 9 mg/dL (7-18); Calcium,Total 9.3 mg/dL (8.5-10.1); Chloride 102 mmol/L (98-107); Creatinine, Serum 0.82 mg/dL (0.70-1.30); EST Glomerular Filtration Rate 115 mL/min (>60); Est Glom Filt Rate - Afr Amer 139 mL/min (>60); Estimated Creatinine Clearance 115.09 ml/min; Glucose 105 mg/dL (74-106); Potassium 3.8 mmol/L (3.5-5.1); Sodium Level 136 mmol/L (136-145); Troponin-I HS 8 pg/mL (3.0-78.0)
--- NOTE | 2021-06-28 21:01 | CT_ITS ---
STUDY: CTA CHEST REASON FOR EXAM: Male, 35 years old. elevated d dimer, covid RADIATION DOSAGE (If Supplied By Facility): CTDIvol = ( 5.79 ) mGy, DLP = ( 171.59 ) mGycm TECHNIQUE: The examination was performed with the intravenous administration of IV 75mL Isovue-370. Post-processing of the angiographic images was performed, with multiplanar reformation and 3D reconstruction. Individualized dose optimization techniques were used for this CT. COMPARISON: None. FINDINGS: Normal enhancement of the main pulmonary artery and right and left pulmonary arteries. Normal enhancement of the bilateral peripheral pulmonary arteries. There is no demonstrated pulmonary embolism. Normal thoracic aorta and visualized great vessels. There is no demonstrated aortic dissection. Normal heart and pericardium. There is moderate pneumomediastinum, extending to the base of the neck. Normal hilar regions. The lungs are well expanded. Multilobar peripheral reticular and groundglass opacities throughout the lungs. Moderate central, segmental and focal bronchiectasis. Normal pleura. Normal chest wall structures. Normal osseous structures. Normal visualized upper abdomen. CT/CTA Chest W/WO Contrast IMPRESSION: 1. No central segmental pulmonary embolism. 2. Pneumomediastinum. No pneumothorax. 3. Multifocal infiltrates with features commonly reported with COVID pneumonia. Electronically Signed: Nicholas Clinton MD (Brooks) at 21:39 EDT , Service support ,
[2021-06-28 21:14] LABS: AST(SGOT) 40 U/L (15-37); Alanine Aminotransfer ALT/SGPT 68 U/L (16-61); Albumin, Serum 3.2 g/dL (3.2-5.0); Alkaline Phosphatase 78 U/L (45-117); Bilirubin, Direct 0.12 mg/dL (0.00-0.30); Globulin 4.9 g/dL (2.2-4.2); Protein, Total 8.1 g/dL (6.4-8.2)
[2021-06-28 22:53] VITALS: BP 122/74; PULSE 86; RESP 18; TEMP 35.9; O2SAT 96
[2021-06-28] MEDS: dexAMETHasone 4 MG Tablet 6 MG PO (23:29)
[2021-06-28 23:46] LABS: BNP,B-Type NATRIURETIC PEPTIDE 2.8 pg/mL (0-100)
[2021-06-28 23:50] LABS: CRP < 2.90 mg/L (0.0-3.0); Ferritin 396 ng/mL (26-388); LDH 392 U/L (87-241)
[2021-06-28 23:51] VITALS: BMI 19.3
[2021-06-29 00:05] LABS: Procalcitonin < 0.04 ng/mL (0.00-0.09)
[2021-06-29] MEDS: 0.9% Saline Lock 10 ML Syringe IV (00:36)
[2021-06-29] MEDS: 0.9% Normal Saline 1,000 ML 100 ML IV (00:36)
[2021-06-29 00:39] VITALS: BP 115/80; PULSE 78; RESP 18; TEMP 37; O2SAT 92
[2021-06-29] MEDS: busPIRone 5 MG Tablet 10 MG PO (01:15)
[2021-06-29] MEDS: Temazepam 15 MG Capsule PO (01:15)
[2021-06-29 01:16] LABS: Amphetamine Urine VISTA NEGATIVE (<1000 ng/mL); Barbiturate Urine VISTA NEGATIVE (< 200 ng/mL); Benzodiazepine Urine VISTA NEGATIVE (< 200 ng/mL); Cocaine Urine VISTA NEGATIVE (< 300 ng/mL); Ecstacy Urine VISTA NEGATIVE (< 500 ng/mL); Methadone Urine VISTA NEGATIVE (< 300 ng/mL); PCP Urine VISTA NEGATIVE (< 25 ng/mL); THC Urine VISTA NEGATIVE (< 50 ng/mL); Vista UDS pH Range 7
[2021-06-29 03:50] VITALS: BP 96/85; PULSE 90; RESP 20; TEMP 37; O2SAT 95
[2021-06-29 06:13] LABS: Absolute Lymphocyte Count 0.59 X10^3/uL (0.83-4.51); Absolute Neutrophil Count 11.1 X10^3/uL (2.0-7.7); Basophil# 0.01 X10^3/uL; Basophil% 0.1 % (0-1); Eosinophil# 0.01 X10^3/uL; Eosinophils% 0.1 % (0-5); Hematocrit 38.6 % (40-54); Hemoglobin 13.4 g/dL (13.0-16.5); Lymphocyte # 0.59 X10^3/ul (0.83-4.51); Lymphocyte % 4.8 % (19-41); Mean Corp Hgb Conc 34.7 g/dL (32-36); Mean Corpuscular Hgb 32.1 pg (27.0-32.0); Mean Corpuscular Volume 92.3 fL (80-94); Mean Platelet Vol. 9.3 fl (6.2-12.0); Monocyte# 0.43 X10^3/uL; Monocyte% 3.5 % (0-10); NRBC Flagged by Analyzer 0 % (0-5); Neutrophil # 11.11 X10^3/uL (2.7-7.7); Neutrophil % 90.7 % (47-70); POSITIVE DIFFERENTIAL YES; Platelet Count 270 K/mm3 (150-450); RBC Distribution Width CV 12.6 % (11.6-14.6); RBC Distribution Width SD 41.8 fl (35.1-43.9); Red Blood Count 4.18 M/mm3 (4.6-6.2); White Blood Count 12.3 K/mm3 (4.4-11.0)
[2021-06-29 06:38] LABS: Differential Indicated SCAN CRITERIA MET
[2021-06-29 06:49] LABS: ALB/GLOB Ratio 0.6 RATIO (0.9-2.4); AST(SGOT) 23 U/L (15-37); Alanine Aminotransfer ALT/SGPT 54 U/L (16-61); Albumin, Serum 2.5 g/dL (3.2-5.0); Alkaline Phosphatase 71 U/L (45-117); Anion Gap 6 (5-15); BUN 10 mg/dL (7-18); BUN/Creat Ratio 13.5 RATIO (10-20); Calcium,Total 8.4 mg/dL (8.5-10.1); Chloride 103 mmol/L (98-107); Creatinine, Serum 0.74 mg/dL (0.70-1.30); EST Glomerular Filtration Rate 129 mL/min (>60); Est Glom Filt Rate - Afr Amer 156 mL/min (>60); Estimated Creatinine Clearance 115.88 ml/min; Glucose 132 mg/dL (74-106); Potassium 4.2 mmol/L (3.5-5.1); Protein, Total 6.5 g/dL (6.4-8.2); Sodium Level 139 mmol/L (136-145)
[2021-06-29 08:49] VITALS: BP 111/77; PULSE 86; RESP 20; TEMP 36.6; O2SAT 96
--- NOTE | 2021-06-29 08:52 | PCS.PANDOC ---
PANDEMIC DOCUMENTATION INITIATED: Date: 05/19/2021 Time: 190
[2021-06-29] MEDS: Loratadine 10 MG Tablet PO (08:57)
--- NOTE | 2021-06-29 09:06 | NURSING ---
O2 off patient, pox 96%. patient comfortable and no distress noted, will monitor Oumar Frank RN
[2021-06-29] MEDS: Mag Hydrox/Al Hydrox/Simeth 30 ML UDC PO (09:07)
[2021-06-29 09:10] VITALS: PULSE 86; RESP 20; O2SAT 96
--- NOTE | 2021-06-29 11:41 | PCM.DC ---
Discharge Instructions Diet Discharge Diet: No restrictions Activity Discharge Activity: Return to Normal Activity Weight Bearing Status: Full weight bearing Follow Up Care Test Results: Test results from this visit will be discussed in further detail at your follow-up appointment, if applicable. Discharge Plan Admission Admit Date/Time: 06/28/21 23:03 Primary Reason for Your Visit: hypoxia Attending Provider: Luis M Garsia Primary Care Provider: Care Physician,No Primary Discharge Orders/Prescriptions Prescriptions: Continued buspirone 5 MG tablet 10 mg PO TID PRN (Reason: Anxiety) RF: 0 ondansetron [Zofran ODT] 8 MG tablet,disintegrating 8 mg PO Q8H PRN PRN (Reason: Nausea) RF: 0 promethazine 25 MG tablet 25 mg PO Q6H PRN PRN (Reason: Nausea) RF: 0 dicyclomine 10 MG capsule 20 mg PO 4X/DAY PRN PRN (Reason: Pain) RF: 0 loratadine [Allergy Relief (loratadine)] 10 MG tablet 10 mg PO DAILY RF: 0 melatonin-pyridoxine HCl (B6) 1 EACH tablet, IR and ER, biphasic 1 ea PO QHS RF: 0 famotidine [Pepcid] 40 MG tablet 40 mg PO QHS RF: 0 naproxen 500 MG tablet 500 mg PO BID PRN PRN (Reason: Pain) Qty: 10 RF: 0 quetiapine 25 mg tablet RF: 0 Creon 3,000-9,500- 15,000 unit Capsule,Delayed Release(Dr/Ec) 1 cap PO TID RF: 0 omeprazole 20 mg Capsule,Delayed Release(Dr/Ec) 20 mg PO DAILY RF: 0 Referrals / Follow Up: Care Physician,No Primary [Primary Care Provider] - Within 1 Month Disposition Disposition (needs filled in before D/C Order can be placed): Home, Self Care
[2021-06-29 11:44] VITALS: BP 119/78; PULSE 90; RESP 20; TEMP 36.6; O2SAT 95
--- NOTE | 2021-06-29 18:40 | DS.PCM_ITS ---
Providers Date of Admission: 06/28/21 Date of Discharge: 06/29/21 Primary Care Physician: No Primary Care Phys Reason For Visit: COVID PNA, HYPOXIA, Diagnosis Discharge Diagnosis (1) Pneumonia due to COVID-19 virus: Status: Acute Code(s): U07.1 - COVID-19; J12.82 - Pneumonia due to coronavirus disease 2019 (2) Hypoxia: Status: Acute Code(s): R09.02 - Hypoxemia Plan: 1. Anxiety disorder #2 recent COVID-19 infection Medications at Discharge Home Medications buspirone 10 mg PO TID PRN 06/10/17 dicyclomine 20 mg PO 4X/DAY PRN PRN 06/10/17 famotidine [Pepcid] 40 mg PO QHS 06/10/17 loratadine [Allergy Relief (loratadine)] 10 mg PO DAILY 06/10/17 melatonin-pyridoxine HCl (B6) 1 ea PO QHS 06/10/17 ondansetron [Zofran ODT] 8 mg PO Q8H PRN PRN 06/10/17 promethazine 25 mg PO Q6H PRN PRN 06/10/17 naproxen 500 mg PO BID PRN PRN #10 tab 08/22/17 quetiapine 06/28/21 Creon 1 cap PO TID 06/29/21 omeprazole 20 mg PO DAILY 06/29/21 Hospital Course Operations None Procedures None Summary of Care Provided Minutes Spent on Discharge: 30 Hospital Course: This 35-year-old white male was seen in emergency room complaining of shortness of breath, he had been diagnosed with COVID-19 pneumonia June 10. He had oxygen at home due to his Covid diagnosis. He came into the emergency room complaining of increased shortness of breath, patient had been to the emergency room multiple times secondary to his severe anxiety disorder. Patient was evaluated in the emergency room, CT of the chest was obtained which showed no evidence of PE, it showed multifocal infiltrates consistent with COVID-19 pneumonia and evidence of pneumomediastinum. Patient required 4 L of oxygen in the ER. Patient was placed in observation status on MedSurg 3, his oxygen was weaned off and he was stable on room air, he remained anxious however. I talked with the patient on the morning of 06/29/2021, initially the patient refused to talk to this examiner, I told the patient that he was being discharge home. Patient underwent a walking pulse oximetry which revealed he did not need oxygen on ambulation, patient also did not need oxygen at rest. Patient was seen and examined on 06/29/2021: On examination he appeared moderately anxious, his affect was bizarre. Vital signs as documented. Skin warm and dry and without overt rashes. Neck without JVD, neck was supple, trachea midline, thyroid was normal. Lungs clear bilaterally, normal air movement was noted. Heart exam notable for regular rhythm, normal sounds and absence of murmurs, rubs or gallops. Abdomen unremarkable and without evidence of organomegaly, masses, or abdominal aortic enlargement. Bowel sounds are present, abdomen is not distended. Extremities nonedematous, no cyanosis was noted, no clubbing was noted. Neuro: Cranial nerves II through XII are grossly intact, no focal motor deficits were noted, sensation to light touch and pinprick intact, motor exam 5/5 throughout. Psych: Patient is alert and oriented x3, he does not appear anxious or depressed, he does not appear agitated. Patient was discharged home in stable condition on 06/29/2021 Weight / BMI Weight Weight: 58.967 kg Body Mass Index (BMI) 19.3 ABG / Lab / Microbiology Data Result Diagrams: 06/29/21 06:00 06/29/21 06:00 Laboratory: Laboratory Results - last 24 hr 06/28/21 20:17: WBC 14.3 H, RBC 4.76, Hgb 15.3, Hct 44.5, MCV 93.5, MCH 32.1 H, MCHC 34.4, RDW Std Deviation 42.3, RDW Coeff of Iggy 12.3, Plt Count 323, MPV 9.3, Immature Gran % (Auto) 0.700, Neut % (Auto) 83.0 H, Lymph % (Auto) 9.2 L, [place] % (Auto) 6.9, Eos % (Auto) 0.0, Baso % (Auto) 0.2, Absolute Neuts (auto) 11.9 H, Absolute Lymphs (auto) 1.32, Nucleated RBC % 0 06/28/21 20:17: D-Dimer Quant (PE/DVT) 0.62 H* 06/28/21 20:17: Sodium 136, Potassium 3.8, Chloride 102, Carbon Dioxide 30.0, Anion Gap 4 L, BUN 9, Creatinine 0.82, Estim Creat Clear Calc 115.09, Est GFR (MDRD) Af Amer 139, Est GFR (MDRD) Non-Af 115, BUN/Creatinine Ratio 11.0, Glucose 105, Calcium 9.3, Troponin I High Sens 8 06/28/21 20:17: Total Bilirubin 0.70, Direct Bilirubin 0.12, AST 40 H, ALT 68 H, Alkaline Phosphatase 78, Total Protein 8.1, Albumin 3.2, Globulin 4.9 H 06/28/21 20:17: Ferritin 396 H, Lactate Dehydrogenase 392 H, C-React Prot Ext Range < 2.90 06/28/21 20:17: B-Natriuretic Peptide 2.8 06/28/21 20:17: Procalcitonin < 0.04 06/29/21 00:45: Urine Opiates Screen NEGATIVE, Urine Methadone Screen NEGATIVE, Ur Barbiturates Screen NEGATIVE, Ur Phencyclidine Scrn NEGATIVE, Ur Amphetamines Screen NEGATIVE, U Methamphetamin-MDMA NEGATIVE, U Benzodiazepines Scrn NEGATIVE, Urine Cocaine Screen NEGATIVE, U Cannabinoids Screen NEGATIVE, Ur Drug Screen Comment 06/29/21 06:00: WBC 12.3 H, RBC 4.18 L, Hgb 13.4, Hct 38.6 L, MCV 92.3, MCH 32.1 H, MCHC 34.7, RDW Std Deviation 41.8, RDW Coeff of Iggy 12.6, Plt Count 270, MPV 9.3, Immature Gran % (Auto) 0.800, Neut % (Auto) 90.7 H, Lymph % (Auto) 4.8 L, [place] % (Auto) 3.5, Eos % (Auto) 0.1, Baso % (Auto) 0.1, Absolute Neuts (auto) 11.1 H, Absolute Lymphs (auto) 0.59 L, Nucleated RBC % 0 06/29/21 06:00: Sodium 139, Potassium 4.2, Chloride 103, Carbon Dioxide 30.0, Anion Gap 6, BUN 10, Creatinine 0.74, Estim Creat Clear Calc 115.88, Est GFR (MDRD) Af Amer 156, Est GFR (MDRD) Non-Af 129, BUN/Creatinine Ratio 13.5, Glucose 132 H, Calcium 8.4 L, Total Bilirubin 0.40, AST 23, ALT 54, Alkaline Phosphatase 71, Total Protein 6.5, Albumin 2.5 L, Globulin 4.0, Albumin/Globulin Ratio 0.6 L Radiography Diagnostic Testing: Radiology Impression Chest X-Ray 06/28/21 19:26 IMPRESSION: Multifocal infiltrates with features commonly reported with COVID pneumonia. Electronically Signed: Nicholas Clinton MD ([place]) at 20:01 EDT , Service support , Chest CTA 06/28/21 21:01 IMPRESSION: 1. No central segmental pulmonary embolism. 2. Pneumomediastinum. No pneumothorax. 3. Multifocal infiltrates with features commonly reported with COVID pneumonia. Electronically Signed: Nicholas Clinton MD ([place]) at 21:39 EDT , Service support , D/C Instructions Discharge Diet: No restrictions Weight Bearing Status: Full weight bearing Meaningful Use Info Meaningful Use Diagnoses (Choose all that apply): None applicable Discharge Plan Admission Admit Date/Time: 06/28/21 23:03 Primary Reason for Your Visit: hypoxia Attending Provider: Luis M Garsia Primary Care Provider: Care Physician,No Primary Discharge Orders/Prescriptions Prescriptions: Continued buspirone 5 MG tablet 10 mg PO TID PRN (Reason: Anxiety) RF: 0 ondansetron [Zofran ODT] 8 MG tablet,disintegrating 8 mg PO Q8H PRN PRN (Reason: Nausea) RF: 0 promethazine 25 MG tablet 25 mg PO Q6H PRN PRN (Reason: Nausea) RF: 0 dicyclomine 10 MG capsule 20 mg PO 4X/DAY PRN PRN (Reason: Pain) RF: 0 loratadine [Allergy Relief (loratadine)] 10 MG tablet 10 mg PO DAILY RF: 0 melatonin-pyridoxine HCl (B6) 1 EACH tablet, IR and ER, biphasic 1 ea PO QHS RF: 0 famotidine [Pepcid] 40 MG tablet 40 mg PO QHS RF: 0 naproxen 500 MG tablet 500 mg PO BID PRN PRN (Reason: Pain) Qty: 10 RF: 0 quetiapine 25 mg tablet RF: 0 Creon 3,000-9,500- 15,000 unit Capsule,Delayed Release(Dr/Ec) 1 cap PO TID RF: 0 omeprazole 20 mg Capsule,Delayed Release(Dr/Ec) 20 mg PO DAILY RF: 0 Referrals / Follow Up: Care Physician,No Primary [Primary Care Provider] - Within 1 Month Disposition Disposition (needs filled in before D/C Order can be placed): Home, Self Care Charges/Coding Visit Charges OBSV E&M: 91074 Observation care discharge
== END 2021-06-29 13:45 | disposition home or self-care (01) ==
LOC: ED 22:20 → MS3 06-29 03:47
PROVIDERS: Admitting Provider Family Medicine; Emergency Provider Emergency Medicine; Visit Provider Internal Medicine
DX: U07.1 COVID-19 (principal); J12.82 Pneumonia due to coronavirus disease 2019; R09.02 Hypoxemia; F41.9 Anxiety disorder, unspecified; F17.220 Nicotine dependence, chewing tobacco, uncomplicated; Z99.81 Dependence on supplemental oxygen; Z79.899 Other long term (current) drug therapy; F32.9 Major depressive disorder, single episode, unspecified; K21.9 Gastro-esophageal reflux disease without esophagitis; R06.00 Dyspnea, unspecified; R79.89 Other specified abnormal findings of blood chemistry
CPT/HCPCS: 36415; 71045; 71275; 80048; 80053; 80076; 80307; 82728; 83615; 83880; 84145; 84484; 85025; 85379; 86140; 93005; 96360; 96361; 99218; 99285; J7030; Q9967; A4216; G0378

== ENCOUNTER 2021-07-01 19:42 | Emergency (ER) | payer MEDICARE, MEDICAID, SELFPAY ==
[2021-07-01 19:43] VITALS: BP 120/88; PULSE 79; RESP 18; TEMP 36.4; O2SAT 96; BMI 20.9
[2021-07-01 19:50] VITALS: BP 120/88; PULSE 86; RESP 18; TEMP 36.4; O2SAT 95
--- NOTE | 2021-07-01 20:33 | RAD_ITS ---
STUDY: X-RAY CHEST REASON FOR EXAM: Male, 35 years old. sob, cough, covid TECHNIQUE: Frontal view COMPARISON: 06/28/2021 FINDINGS: The lungs are expanded. Persistent bilateral patchy infiltrates with mild interval improvement. Normal size heart. Normal mediastinum and chen. Normal visualized pulmonary arteries. Normal visualized aortic arch and descending thoracic aorta. Normal visualized thoracic spine. Normal visualized ribs, clavicles, and shoulders. There is no demonstrated abnormality of the visualized soft tissue structures of the upper abdomen. RAD/Chest 1 View (Portable) IMPRESSION: Persistent bilateral patchy infiltrates with mild interval improvement. Electronically Signed: Stas Dorsey DO at 20:59 EDT Tel [phone], Service support ,
--- NOTE | 2021-07-01 21:12 | EDS_ITS ---
HPI History of Present Illness Chief Complaint: Shortness of Breath Informant: patient and EMS Narrative Narrative: Patient previously diagnosed with and tested positive for Covid, and has been short of breath. He is unable to tell me how long he has been ill. He confirms that he was diagnosed with Covid pneumonia and discharged on Decadron which he finished apparently. The patient provides very little information to me about why he is here, but in short he states that his Decadron is gone and he does not feel better and he wants something that is going to cure his pneumonia. PFSH PFSH Medical History Anxiety Tobacco use Home Medications buspirone 10 mg PO TID PRN 06/10/17 [History Last Taken Unknown] dicyclomine 20 mg PO 4X/DAY PRN PRN 06/10/17 [History Last Taken Unknown] famotidine [Pepcid] 40 mg PO QHS 06/10/17 [History Last Taken Unknown] loratadine [Allergy Relief (loratadine)] 10 mg PO DAILY 06/10/17 [History Last Taken Unknown] melatonin-pyridoxine HCl (B6) 1 ea PO QHS 06/10/17 [History Last Taken Unknown] ondansetron [Zofran ODT] 8 mg PO Q8H PRN PRN 06/10/17 [History Last Taken Unknown] promethazine 25 mg PO Q6H PRN PRN 06/10/17 [History Last Taken Unknown] naproxen 500 mg PO BID PRN PRN #10 tab 08/22/17 [Rx Last Taken Unknown] quetiapine 06/28/21 [History Last Taken Unknown] Creon 1 cap PO TID 06/29/21 [History Last Taken Unknown] omeprazole 20 mg PO DAILY 06/29/21 [History Last Taken Unknown] Allergy/AdvReac Type Severity Reaction Status Date / Time Penicillins Allergy Unknown Verified 06/24/21 06:57 sumatriptan [From Imitrex] Allergy Unknown Verified 06/24/21 06:57 sumatriptan succinate Allergy Unknown Verified 06/24/21 06:57 [From Imitrex] amoxicillin [Amoxicillin] AdvReac Nausea/Vom/ Verified 06/24/21 06:57 Diarrhea Surgical History (Updated 06/28/21 @ 22:[address] María Merchant MD) No significant past surgical history Social History household members: family Smoking Status: Former smoker Smokeless tobacco user: chewing tobacco how long ago did patient quit smoking: Former cigarette tobacco use, now chew tobacco 2-3 wads daily. alcohol intake: never details: Patient states he currently is not drinking any alcoholic beverages substance use type: does not use ROS ROS ED Review of Systems ROS Unobtainable: other Details: unwillingness of pt to answer questions Constitutional Constitutional ED: Reports chills, fatigue and fever(s) Respiratory/Chest Respiratory/Chest: Reports cough, dry cough and dyspnea EXAM Physical Exam Const Vital Signs: 07/01/21 19:43 07/01/21 19:50 Temperature 97.5 F L 97.5 F L Temperature Source Temporal Temporal Pulse Rate 79 86 Respiratory Rate 18 18 Respiratory Effort Normal Respiratory Depth Normal Respiratory Pattern Normal Blood Pressure 120/88 H 120/88 H Blood Pressure Mean 98 98 Pulse Ox 96 95 Oxygen Delivery Method Room Air Room Air Positive well nourished and well developed Constitutional Narrative: Malaised-appearing, no distress General Appearance ED: well developed and NAD HEENT Reports moist mucous membranes normocephalic and atraumatic Eyes PERRL and EOMs intact bilaterally Neck full ROM and supple Resp normal respiratory effort and clear to auscultation bilaterally Cardio regular rate, regular rhythm and no murmurs Rate: Negative for tachycardic GI non-tender and non-distended Auscultation: normoactive bowel sounds Palpation: soft Back/Spine no CVA tenderness General Back: other FROM Extremity normal to inspection and no calf tenderness General Extremety ED: Negative for edema, pulses abnormal or tenderness General Extremity: Negative for edema or pulses abnormal Neuro oriented x3, CN's II-XII intact bilaterally and no sensory deficits noted [place] Coma Scale: document GCS findings Spontaneous Obeys Commands Oriented 15 Sensorium / Orientation: awake and alert Motor Exam: strength 5/5 throughout Psych Attitude: No agitated Mood & Affect: anxious Skin no rashes or lesions noted and no wounds MDM MDM MDM Narrative Medical decision making narrative: According to records patient was recently admitted to the hospital, he had told the physicians here he was on oxygen at home prior to coming here, he was having trouble caring for himself he was weaned off of oxygen while in the hospital. Currently he is on no oxygen and has maintained saturations 95-96% on room air the entire time. He indicates he wants to get better, certainly I understand that. However with Covid, that is easier said than done. At this time his vital signs are normal, he was ruled out for pulmonary embolus less than a week ago, and he currently has a chest x- ray that shows bilateral infiltrates that are improved compared with before and he no longer is hypoxic. As I discussed with him he no longer meets any criteria for furtherinfg Covid treatment, and he does not require any more st eroids or other treatments at this time except supportive care. Discharged stable condition. Radiography Diagnostic Testing: Radiology Impression Chest X-Ray 07/01/21 20:33 IMPRESSION: Persistent bilateral patchy infiltrates with mild interval improvement. Electronically Signed: Stas Dorsey DO at 20:59 EDT Tel [phone], Service support , Discharge Plan Triage Chief Complaint: Shortness of Breath ED Provider: Vinay Franz Dx/Rx/DC Orders Clinical Impression: Pneumonia due to COVID-19 virus Instructions: Coronavirus Disease 2019 (COVID-19): Caring for Yourself or Others Prescriptions: No Action buspirone 5 MG tablet 10 mg PO TID PRN (Reason: Anxiety) RF: 0 ondansetron [Zofran ODT] 8 MG tablet,disintegrating 8 mg PO Q8H PRN PRN (Reason: Nausea) RF: 0 promethazine 25 MG tablet 25 mg PO Q6H PRN PRN (Reason: Nausea) RF: 0 dicyclomine 10 MG capsule 20 mg PO 4X/DAY PRN PRN (Reason: Pain) RF: 0 loratadine [Allergy Relief (loratadine)] 10 MG tablet 10 mg PO DAILY RF: 0 melatonin-pyridoxine HCl (B6) 1 EACH tablet, IR and ER, biphasic 1 ea PO QHS RF: 0 famotidine [Pepcid] 40 MG tablet 40 mg PO QHS RF: 0 naproxen 500 MG tablet 500 mg PO BID PRN PRN (Reason: Pain) Qty: 10 RF: 0 quetiapine 25 mg tablet RF: 0 Creon 3,000-9,500- 15,000 unit Capsule,Delayed Release(Dr/Ec) 1 cap PO TID RF: 0 omeprazole 20 mg Capsule,Delayed Release(Dr/Ec) 20 mg PO DAILY RF: 0 Primary Care Provider: Care Physician,No Primary Referrals: Elle Redmond [NON-STAFF] - 1 Week if not improving Care Physician,No Primary [Primary Care Provider] - Activity Restrictions/Additional Instructions: At this time your oxygen levels are excellent on room air. You already finished your steroids. There is no other treatment indicated, including hos pitalization. You are always welcome to seek reevaluation if you are feeling worse, but your chest x-ray is actually showing improvement compared with the last one performed here. Disposition Disposition: Home, Self Care
[2021-07-01 21:26] VITALS: BP 111/61; PULSE 70; RESP 18; O2SAT 95
== END 2021-07-01 21:27 | disposition home or self-care (01) ==
PROVIDERS: Emergency Provider Emergency Medicine
DX: U07.1 COVID-19 (principal); J12.82 Pneumonia due to coronavirus disease 2019; Z87.891 Personal history of nicotine dependence
CPT/HCPCS: 71045; 99284

== ENCOUNTER 2022-06-17 20:23 | Emergency (ER) | payer MEDICARE, MEDICAID, SELFPAY ==
[2022-06-17 20:24] VITALS: BP 129/73; PULSE 95; RESP 16; TEMP 36.9; O2SAT 92; BMI 20.5
[2022-06-17] MEDS: Acetaminophen 500 MG Tablet 1000 MG PO (22:06)
[2022-06-17] MEDS: hydrOXYzine PAM 25 MG Capsule PO (22:07)
--- NOTE | 2022-06-17 23:19 | EX.ED.VIS.HA ---
HPI History of Present Illness Chief Complaint: Headache Informant: patient Onset/Context/Timing Onset: Days (2-3) Context: Gradual Timing: Continuous Quality -Headache: Positive for Similar Prior Headaches Location: Top of head Worsened by: Light, anxiety Relieved by: Rest Associated Symptoms/Injury Associated Symptoms: Positive for Sore Throat and Photophobia; Negative for Fever, Nausea, Vomiting, Sinus Pressure, Numbness, Tingling, Preceding Aura, Visual Changes, Blurred Vision or Visual Loss Narrative Narrative: Patient presents with a headache that has been getting worse over the last 2 to 3 days. Patient states it started out as a tension migraine headache. Patient states that then progressed to a regular migraine headache. Patient states it is gradually getting worse. Patient states it is over the top of his head. Patient describes it as dull and throbbing. Patient states it is better with rest. Patient does admit to a sore throat. Patient also admits to some photophobia. Patient states his anxiety is making it worse. Patient states he did take his BuSpar and Seroquel as prescribed today. Prior similar symptoms: Yes PFSH PFSH Medical History Anxiety Tobacco use Home Medications buspirone 5 mg tablet 10 mg PO TID PRN Anxiety 06/10/17 [History Last Taken Unknown] dicyclomine 10 mg capsule 20 mg PO 4X/DAY PRN PRN Pain 06/10/17 [History Last Taken Unknown] famotidine 40 mg tablet (Pepcid) 40 mg PO QHS 06/10/17 [History Last Taken Unknown] loratadine 10 mg tablet (Allergy Relief (loratadine)) 10 mg PO DAILY 06/10/17 [History Last Taken Unknown] melatonin ER 10 mg-pyridoxine HCl (B6) 10 mg tab, immed-extend release 1 ea PO QHS 06/10/17 [History Last Taken Unknown] ondansetron 8 mg disintegrating tablet (Zofran ODT) 8 mg PO Q8H PRN PRN Nausea 06/10/17 [History Last Taken Unknown] promethazine 25 mg tablet 25 mg PO Q6H PRN PRN Nausea 06/10/17 [History Last Taken Unknown] naproxen 500 mg tablet 500 mg PO BID PRN PRN Pain #10 tabs 08/22/17 [Rx Last Taken Unknown] quetiapine 25 mg tablet 06/28/21 [History Last Taken Unknown] lipase 3,000-protease 9,500-amylase 15,000 unit capsule, delayed rel (Creon) 1 cap PO TID Check with primary doctor 06/29/21 [History Last Taken Unknown] omeprazole 20 mg capsule,delayed release 20 mg PO DAILY 06/29/21 [History Last Taken Unknown] Allergy/AdvReac Type Severity Reaction Status Date / Time Penicillins Allergy Unknown Verified 06/24/21 06:57 sumatriptan [From Imitrex] Allergy Unknown Verified 06/24/21 06:57 sumatriptan succinate Allergy Unknown Verified 06/24/21 06:57 [From Imitrex] amoxicillin [Amoxicillin] AdvReac Nausea/Vom/ Verified 06/24/21 06:57 Diarrhea Surgical History (Updated 06/17/22 @ 23:[address] Nolan Brady DO) History of herniorrhaphy No significant past surgical history Social History household members: family Smoking Status: Former smoker Smokeless tobacco user: chewing tobacco how long ago did patient quit smoking: Former cigarette tobacco use, now chew tobacco 2-3 wads daily. alcohol intake: never details: Patient states he currently is not drinking any alcoholic beverages substance use type: does not use ROS ROS ED Constitutional Constitutional ED: Denies chills or fever(s) Eyes Eyes: Denies blurry vision or change in vision ENT ENT ED: Reports sore throat; Denies rhinorrhea Cardiovascular Cardiovascular: Denies chest pain or palpitations Respiratory/Chest Respiratory/Chest: Denies cough or dyspnea Gastrointestinal Gastrointestinal: Denies nausea or vomiting Genitourinary Genitourinary ED: Denies dysuria or hematuria Musculoskeletal Musculoskeletal: Denies back pain or neck pain Integumentary Denies abscess or rash Neurologic Neurologic: Reports headache(s); Denies weakness Psychiatric Psychiatric: Reports anxiety Allergic/Immunologic Allergic/Immunologic ED: Denies mouth swelling or urticaria EXAM Physical Exam Const Vital Signs: 06/17/22 20:24 Temperature 98.4 F Temperature Source Temporal Pulse Rate 95 Respiratory Rate 16 Blood Pressure 129/73 H Blood Pressure Mean 91 Pulse Ox 92 Oxygen Delivery Method Room Air Positive well nourished and well developed General Appearance ED: well developed HEENT Reports moist mucous membranes Neck supple and no JVD Resp normal respiratory effort and clear to auscultation bilaterally Cardio regular rate, regular rhythm and no murmurs GI normal to inspection, nondistended, normoactive bowel sounds and non-tender Palpation: soft Extremity normal to inspection General Extremety ED: Negative for edema or tenderness General Extremity: Negative for edema Neuro oriented x3, CN's II-XII intact bilaterally and no sensory deficits noted Sensorium / Orientation: alert Motor Exam: strength 5/5 throughout Psych mental status grossly normal Skin no rashes or lesions noted MDM MDM MDM Narrative Medical decision making narrative: Initially I ordered IV fluids, medications, and CT scan of the head. Patient does not want any of this done. Patient states he just wants some Tylenol for his headache and something for his anxiety. Patient was given a dose of Tylenol here. Patient was also given a dose of Vistaril here. Patient feels better on reevaluation. Patient wants to go home. Patient was instructed to follow-up with his primary care physician in 3 to 5 days. Patient was instructed return if worse in any way. Patient understood and was agreeable with the plan. All questions were answered. Discharge Plan Triage Chief Complaint: Headache ED Provider: Nolan Brady Dx/Rx/DC Orders Clinical Impression: Headache, Anxiety Instructions: ED Headache Unspecified Prescriptions: No Action buspirone 5 MG tablet 10 mg PO TID PRN (Reason: Anxiety) ondansetron [Zofran ODT] 8 MG tablet,disintegrating 8 mg PO Q8H PRN PRN (Reason: Nausea) promethazine 25 MG tablet 25 mg PO Q6H PRN PRN (Reason: Nausea) dicyclomine 10 MG capsule 20 mg PO 4X/DAY PRN PRN (Reason: Pain) loratadine [Allergy Relief (loratadine)] 10 MG tablet 10 mg PO DAILY melatonin-pyridoxine HCl (B6) 1 EACH tablet, IR and ER, biphasic 1 ea PO QHS famotidine [Pepcid] 40 MG tablet 40 mg PO QHS naproxen 500 MG tablet 500 mg PO BID PRN PRN (Reason: Pain) Qty: 10 0RF quetiapine 25 mg tablet Creon 3,000-9,500- 15,000 unit Capsule,Delayed Release(Dr/Ec) 1 cap PO TID Rx Instructions: with meals omeprazole 20 mg Capsule,Delayed Release(Dr/Ec) 20 mg PO DAILY Primary Care Provider: Care Physician,No Primary Referrals: Care Physician,No Primary [Primary Care Provider] - Elle Redmond [Non-Staff] - 3-5 Days Disposition Disposition: Home, Self Care
== END 2022-06-17 23:30 | disposition home or self-care (01) ==
PROVIDERS: Emergency Provider Emergency Medicine; Visit Provider Emergency Medicine
DX: R51.9 Headache, unspecified (principal); F41.9 Anxiety disorder, unspecified; F17.220 Nicotine dependence, chewing tobacco, uncomplicated
CPT/HCPCS: 99283

== ENCOUNTER 2022-07-29 21:10 | Emergency (ER) | payer MEDICARE, MEDICAID, SELFPAY ==
[2022-07-29 21:11] VITALS: BP 133/94; PULSE 100; RESP 18; TEMP 36.4; O2SAT 99; BMI 19.8
--- NOTE | 2022-07-29 23:34 | EDS_ITS ---
HPI HPI - GI History of Present Illness Chief Complaint: Abd Pain Narrative Narrative: Patient with past medical history of acid reflux presents with nausea and vomiting, along with abdominal pain. He describes a burning sensation in his abdomen. He states he vomited 6 times today and has been vomiting bile. States he is on a special diet where he is not supposed to eat anything with acid, however it is difficult for him to determine this. Who presents to the emergency department wanting a GI cocktail to settle it down. However, he states that his mother wants him to be admitted for a work-up to find out what is going on. He denies any exacerbating or alleviating factors. No previous abdominal surgeries. He states he does not drink alcohol or smoke marijuana. PFSH PFSH Medical History Anxiety Tobacco use Home Medications buspirone 5 mg tablet 10 mg PO TID PRN Anxiety 06/10/17 [History Last Taken Unknown] dicyclomine 10 mg capsule 20 mg PO 4X/DAY PRN PRN Pain 06/10/17 [History Last Taken Unknown] famotidine 40 mg tablet (Pepcid) 40 mg PO QHS 06/10/17 [History Last Taken Unknown] loratadine 10 mg tablet (Allergy Relief (loratadine)) 10 mg PO DAILY 06/10/17 [History Last Taken Unknown] melatonin ER 10 mg-pyridoxine HCl (B6) 10 mg tab, immed-extend release 1 ea PO QHS 06/10/17 [History Last Taken Unknown] ondansetron 8 mg disintegrating tablet (Zofran ODT) 8 mg PO Q8H PRN PRN Nausea 06/10/17 [History Last Taken Unknown] promethazine 25 mg tablet 25 mg PO Q6H PRN PRN Nausea 06/10/17 [History Last Taken Unknown] naproxen 500 mg tablet 500 mg PO BID PRN PRN Pain #10 tabs 08/22/17 [Rx Last Taken Unknown] quetiapine 25 mg tablet 06/28/21 [History Last Taken Unknown] lipase 3,000-protease 9,500-amylase 15,000 unit capsule, delayed rel (Creon) 1 cap PO TID Check with primary doctor 06/29/21 [History Last Taken Unknown] omeprazole 20 mg capsule,delayed release 20 mg PO DAILY 06/29/21 [History Last Taken Unknown] Allergy/AdvReac Type Severity Reaction Status Date / Time Penicillins Allergy Unknown Verified 07/29/22 21:13 sumatriptan [From Imitrex] Allergy Unknown Verified 07/29/22 21:13 sumatriptan succinate Allergy Unknown Verified 07/29/22 21:13 [From Imitrex] amoxicillin [Amoxicillin] AdvReac Nausea/Vom/ Verified 07/29/22 21:13 Diarrhea Surgical History History of herniorrhaphy No significant past surgical history Social History household members: family Smoking Status: Former smoker Smokeless tobacco user: chewing tobacco how long ago did patient quit smoking: Former cigarette tobacco use, now chew tobacco 2-3 wads daily. alcohol intake: never details: Patient states he currently is not drinking any alcoholic beverages substance use type: does not use ROS ROS ED ROS Narrative Constitutional: No fever, no chills. HEENT: No sore throat. No neck pain. No loss of vision. No rhinorrhea. Cardiovascular: No chest pain. No palpitations. No pedal edema. Respiratory: No cough, no shortness of breath. Abdominal: Epigastric to periumbilical abdominal pain. Positive nausea. 6 episodes of bilious vomiting. Genitourinary: No dysuria. No hematuria. Musculoskeletal: No myalgias. No arthralgias. Neurologic: No headaches. No dizziness. No lightheadedness. Skin: No rash. No change in color. Psychiatric: No depression. No anxiety. EXAM Physical Exam Narrative Exam Narrative: Afebrile. Vital signs noted. HEENT: Normocephalic. Atraumatic. PERRL, EOMI. Neck soft and supple. No point tenderness or step off. Cardiovascular: Regular rate and rhythm. No murmurs, rubs, or gallops appreciated. Respiratory: No tachypnea. Lungs clear to auscultation bilaterally. Gastrointestinal: Abdomen soft, nontender, with normoactive bowel sounds. No rebound or guarding. Neurological: Awake. Alert. Nonfocal, nonlateralizing. Skin: No rash. Normal color. No pallor. Musculoskeletal: No pedal edema. Full range of motion extremities. Const Vital Signs: 07/29/22 21:11 07/30/22 01:10 Temperature 97.6 F L Temperature Source Temporal Pulse Rate 100 88 Respiratory Rate 18 15 Blood Pressure 133/94 H 129/79 H Blood Pressure Mean 107 95 Pulse Ox 99 99 Oxygen Delivery Method Room Air MDM MDM MDM Narrative Medical decision making narrative: I ordered laboratory work including CBC, CMP, and lipase. Patient was given a GI cocktail. He was very hesitant to have his blood drawn, or even to obtain x- rays of his abdomen. He was told that this will limit the work-up of his abdominal pain and causes for his nausea and vomiting. CBC shows slightly elevated white count of 12.1 which I think is nonspecific, hemoglobin mildly hemoconcentrated at 16.6 with a hematocrit of 44.5. Normal platelet count of 176. Chloride 111, BUN of 6 with creatinine 0.94. LFTs are grossly unremarkable. Lipase is normal. Patient did receive a GI cocktail and he states it mildly improved him. He thinks his medications are not working. I did and he has had multiple visits for GERD and gastritis. I will obtain x- rays of the abdomen to make sure there is no obstruction. As long as these are normal, I feel that he would be able to be discharged to follow-up with gastroenterology. He states he already takes famotidine 40 mg. He may need to increase this. I do not currently feel that CT imaging is indicated for his burning abdominal pain. Abdominal x-rays interpreted by myself shows nonspecific/nonobstructive bowel gas pattern. At this point in time, he was referred to gastroenterology as an outpatient. I feel he can be discharged safely home. Disposition is discharged home in stable condition. Return instructions were reviewed. Lab Data Attestation: I reviewed the patient's lab results. Labs: Laboratory Results - last 24 hr 07/29/22 07/29/22 23:53 23:53 WBC 12.1 H RBC 5.05 Hgb 16.6 H Hct 44.5 MCV 88.1 MCH 32.9 H MCHC 37.3 H RDW Std Deviation 37.4 RDW Coeff of Iggy 11.8 Plt Count 176 MPV 10.0 Immature Gran % (Auto) 0.500 Neut % (Auto) 83.7 H Lymph % (Auto) 7.9 L [place] % (Auto) 7.4 Eos % (Auto) 0.2 Baso % (Auto) 0.3 Absolute Neuts (auto) 10.1 H Absolute Lymphs (auto) 0.96 Nucleated RBC % 0 Sodium 142 Potassium 3.8 Chloride 111 H Carbon Dioxide 24.0 Anion Gap 7 BUN 6 L Creatinine 0.94 Estim Creat Clear Calc 91.48 Est GFR (MDRD) Af Amer 117 Est GFR (MDRD) Non-Af 96 BUN/Creatinine Ratio 6.3 L Glucose 92 Calcium 9.1 Total Bilirubin 1.60 H AST 23 ALT 26 Alkaline Phosphatase 70 Total Protein 7.7 Albumin 4.4 Globulin 3.3 Albumin/Globulin Ratio 1.3 Lipase 73 Radiography Diagnostic Testing: Clinical Impression(s) from Imaging Studies Abdomen X-Ray 07/30/22 01:56 IMPRESSION: Non-obstructive bowel gas pattern with no free abdominal air detected. Electronically Signed: Luis M Saucedo MD at 2:31 EDT , Discharge Plan Triage Chief Complaint: Abd Pain ED Provider: Alan Begum Dx/Rx/DC Orders Clinical Impression: Abdominal pain, Chronic GERD Instructions: ED GERD (Adult), ED Abdominal Pain Unkn Cause Male... Prescriptions: No Action buspirone 5 MG tablet 10 mg PO TID PRN (Reason: Anxiety) ondansetron [Zofran ODT] 8 MG tablet,disintegrating 8 mg PO Q8H PRN PRN (Reason: Nausea) promethazine 25 MG tablet 25 mg PO Q6H PRN PRN (Reason: Nausea) dicyclomine 10 MG capsule 20 mg PO 4X/DAY PRN PRN (Reason: Pain) loratadine [Allergy Relief (loratadine)] 10 MG tablet 10 mg PO DAILY melatonin-pyridoxine HCl (B6) 1 EACH tablet, IR and ER, biphasic 1 ea PO QHS famotidine [Pepcid] 40 MG tablet 40 mg PO QHS naproxen 500 MG tablet 500 mg PO BID PRN PRN (Reason: Pain) Qty: 10 0RF quetiapine 25 mg tablet Creon 3,000-9,500- 15,000 unit Capsule,Delayed Release(Dr/Ec) 1 cap PO TID Rx Instructions: with meals omeprazole 20 mg Capsule,Delayed Release(Dr/Ec) 20 mg PO DAILY Primary Care Provider: Care Physician,No Primary Referrals: Friend,Graham, DO [Med Staff - Active Staff] - As soon as possible Care Physician,No Primary [Primary Care Provider] - Disposition Disposition: Home, Self Care
[2022-07-29] MEDS: Mag Hydrox/Al Hydrox/Simeth 30 ML UDC PO (23:45)
[2022-07-29 23:58] LABS: Absolute Lymphocyte Count 0.96 X10^3/uL (0.83-4.51); Absolute Neutrophil Count 10.1 X10^3/uL (2.0-7.7); Basophil# 0.04 X10^3/uL; Basophil% 0.3 % (0-1); Eosinophil# 0.03 X10^3/uL; Eosinophils% 0.2 % (0-5); Hematocrit 44.5 % (40-54); Hemoglobin 16.6 g/dL (13.0-16.5); Lymphocyte # 0.96 X10^3/ul (0.83-4.51); Lymphocyte % 7.9 % (19-41); Mean Corp Hgb Conc 37.3 g/dL (32-36); Mean Corpuscular Hgb 32.9 pg (27.0-32.0); Mean Corpuscular Volume 88.1 fL (80-94); Monocyte% 7.4 % (0-10); NRBC Flagged by Analyzer 0 % (0-5); Neutrophil # 10.12 X10^3/uL (2.7-7.7); Neutrophil % 83.7 % (47-70); Platelet Count 176 K/mm3 (150-450); RBC Distribution Width CV 11.8 % (11.6-14.6); RBC Distribution Width SD 37.4 fl (35.1-43.9); Red Blood Count 5.05 M/mm3 (4.6-6.2); White Blood Count 12.1 K/mm3 (4.4-11.0)
[2022-07-30 00:14] LABS: ALB/GLOB Ratio 1.3 RATIO (0.9-2.4); AST(SGOT) 23 U/L (15-37); Alanine Aminotransfer ALT/SGPT 26 U/L (16-61); Albumin, Serum 4.4 g/dL (3.2-5.0); Alkaline Phosphatase 70 U/L (45-117); Anion Gap 7 (5-15); BUN 6 mg/dL (7-18); BUN/Creat Ratio 6.3 RATIO (10-20); Calcium,Total 9.1 mg/dL (8.5-10.1); Chloride 111 mmol/L (98-107); Creatinine, Serum 0.94 mg/dL (0.70-1.30); EST Glomerular Filtration Rate 96 mL/min (>60); Est Glom Filt Rate - Afr Amer 117 mL/min (>60); Estimated Creatinine Clearance 91.48 ml/min; Globulin 3.3 g/dL (2.2-4.2); Glucose 92 mg/dL (74-106); Lipase 73 U/L (73-393); Potassium 3.8 mmol/L (3.5-5.1); Protein, Total 7.7 g/dL (6.4-8.2); Sodium Level 142 mmol/L (136-145)
[2022-07-30 01:10] VITALS: BP 129/79; PULSE 88; RESP 15; O2SAT 99
--- NOTE | 2022-07-30 01:56 | RAD_ITS ---
INDICATION: Pain EXAMINATION/TECHNIQUE: X-RAY - flat and upright frontal views of abdomen COMPARISON: None FINDINGS: BOWEL GAS PATTERN: Non-obstructive. No significant bowel or stomach distention. FREE AIR: None detected. ORGANOMEGALY: Not seen. CALCIFICATIONS: There are few small calcified pelvic phleboliths. LOWER CHEST: No acute pathology. BONES AND SOFT TISSUES: No acute pathology. RAD/Abd Decub and/or Erect(Portabl IMPRESSION: Non-obstructive bowel gas pattern with no free abdominal air detected. Electronically Signed: Luis M Saucedo MD at 2:31 EDT ,
[2022-07-30 03:00] VITALS: PULSE 77; RESP 15; O2SAT 99
[2022-07-30] MEDS: Mag Hydrox/Al Hydrox/Simeth 30 ML UDC PO (03:04)
== END 2022-07-30 03:11 | disposition home or self-care (01) ==
PROVIDERS: Emergency Provider Emergency Medicine; Visit Provider Emergency Medicine
DX: R10.9 Unspecified abdominal pain (principal); K21.9 Gastro-esophageal reflux disease without esophagitis; Z87.891 Personal history of nicotine dependence
CPT/HCPCS: 74019; 80053; 83690; 85025; 99283

== ENCOUNTER 2022-07-30 14:55 | Emergency (ER) | payer MEDICARE, MEDICAID, SELFPAY ==
[2022-07-30 14:56] VITALS: BP 113/82; PULSE 98; RESP 16; TEMP 36.8; O2SAT 100; BMI 20.7
--- NOTE | 2022-07-30 15:23 | EX.ED.DYSGE1 ---
HPI History of Present Illness Chief Complaint: Anxiety Informant: patient Onset/Context/Timing Onset: Yesterday Context: Sudden Onset Timing: Continuous Quality: Aching Location: Upper abdomen Worsened by: Anxiety Relieved by: Nausene Narrative Narrative: Patient presents with nausea and vomiting that began last evening. Patient states it is gradually gotten worse. Patient states he thinks it is due to his anxiety. Patient states he has pain over his upper abdomen. Patient describes it as aching. Patient states it is worse when he becomes anxious. Patient states he took a nauzene tablet prior to arrival which has helped his nausea. Patient denies any hematemesis or coffee-ground emesis. Patient denies any melena or hematochezia. Patient does admit to some dysuria but denies any hematuria or frequency. PFSH PFSH Medical History Anxiety Chronic GERD Pancreatitis Tobacco use Home Medications buspirone 5 mg tablet 10 mg PO TID PRN Anxiety 06/10/17 [History Last Taken Unknown] dicyclomine 10 mg capsule 20 mg PO 4X/DAY PRN PRN Pain 06/10/17 [History Last Taken Unknown] famotidine 40 mg tablet (Pepcid) 40 mg PO QHS 06/10/17 [History Last Taken Unknown] loratadine 10 mg tablet (Allergy Relief (loratadine)) 10 mg PO DAILY 06/10/17 [History Last Taken Unknown] melatonin ER 10 mg-pyridoxine HCl (B6) 10 mg tab, immed-extend release 1 ea PO QHS 06/10/17 [History Last Taken Unknown] ondansetron 8 mg disintegrating tablet (Zofran ODT) 8 mg PO Q8H PRN PRN Nausea 06/10/17 [History Last Taken Unknown] promethazine 25 mg tablet 25 mg PO Q6H PRN PRN Nausea 06/10/17 [History Last Taken Unknown] quetiapine 25 mg tablet 25 mg PO DAILY 06/28/21 [History Last Taken Unknown] lipase 3,000-protease 9,500-amylase 15,000 unit capsule, delayed rel (Creon) 1 cap PO TID Check with primary doctor 06/29/21 [History Last Taken Unknown] ondansetron 4 mg disintegrating tablet 4 mg PO Q8H PRN PRN Nausea #10 tabs 07/30/22 [Rx Last Taken Unknown] Allergy/AdvReac Type Severity Reaction Status Date / Time Penicillins Allergy Unknown Verified 07/30/22 14:56 sumatriptan [From Imitrex] Allergy Unknown Verified 07/30/22 14:56 sumatriptan succinate Allergy Unknown Verified 07/30/22 14:56 [From Imitrex] amoxicillin [Amoxicillin] AdvReac Nausea/Vom/ Verified 07/30/22 14:56 Diarrhea Surgical History History of herniorrhaphy No significant past surgical history Social History household members: family Smoking Status: Former smoker Smokeless tobacco user: chewing tobacco how long ago did patient quit smoking: Former cigarette tobacco use, now chew tobacco 2-3 wads daily. alcohol intake: never details: Patient states he currently is not drinking any alcoholic beverages substance use type: does not use ROS ROS ED Constitutional Constitutional ED: Reports chills and subjective; Denies fever(s) Eyes Eyes: Denies blurry vision or change in vision ENT ENT ED: Denies rhinorrhea or sore throat Cardiovascular Cardiovascular: Denies chest pain or palpitations Respiratory/Chest Respiratory/Chest: Denies cough or dyspnea Gastrointestinal Gastrointestinal: Reports nausea and vomiting Genitourinary Genitourinary ED: Reports dysuria; Denies hematuria Musculoskeletal Musculoskeletal: Denies back pain or neck pain Integumentary Denies abscess or rash Neurologic Neurologic: Reports headache(s); Denies weakness Psychiatric Psychiatric: Reports anxiety; Denies suicidal ideation or suicidal thoughts Allergic/Immunologic Allergic/Immunologic ED: Denies mouth swelling or urticaria EXAM Physical Exam Const Vital Signs: 07/30/22 14:56 07/30/22 15:31 Temperature 98.2 F Temperature Source Temporal Pulse Rate 98 Respiratory Rate 16 Respiratory Effort Normal Non-Labored Respiratory Pattern Normal Blood Pressure 113/82 H Blood Pressure Mean 92 Pulse Ox 100 Oxygen Delivery Method Room Air Positive well nourished and well developed General Appearance ED: well developed and NAD HEENT Reports moist mucous membranes Neck supple and no JVD Resp normal respiratory effort and clear to auscultation bilaterally Cardio regular rate, regular rhythm and no murmurs GI normal to inspection, nondistended, normoactive bowel sounds Palpation: soft and tender epigastric, LUQ and RUQ; Negative for guarding or rebound tenderness present Extremity normal to inspection General Extremety ED: Negative for edema or tenderness General Extremity: Negative for edema Neuro oriented x3, CN's II-XII intact bilaterally and no sensory deficits noted Sensorium / Orientation: alert Motor Exam: strength 5/5 throughout Psych mental status grossly normal Skin no rashes or lesions noted MDM MDM MDM Narrative Medical decision making narrative: Patient was given IV fluids, Zofran, and Vistaril. CBC was within normal limits. Comprehensive metabolic profile was essentially within normal limits except for slightly elevated bilirubin of 1.7. Lipase was normal. Patient is feeling better on reevaluation. Patient was advised of his findings. Patient was given a prescription for Zofran. Patient was instructed to follow-up with his primary care physician in 3 to 5 days for further evaluation. Patient understood and was agreeable with the plan. All questions were answered. Lab Data Attestation: I reviewed the patient's lab results. Labs: Laboratory Results - last 24 hr 07/30/22 07/30/22 13:33 13:33 WBC 6.8 RBC 4.96 Hgb 16.2 Hct 43.5 MCV 87.7 MCH 32.7 H MCHC 37.2 H RDW Std Deviation 37.7 RDW Coeff of Iggy 11.8 Plt Count 166 MPV 10.2 Immature Gran % (Auto) 0.400 Neut % (Auto) 75.1 H Lymph % (Auto) 12.9 L [place] % (Auto) 11.4 H Eos % (Auto) 0.1 Baso % (Auto) 0.1 Absolute Neuts (auto) 5.1 Absolute Lymphs (auto) 0.88 Nucleated RBC % 0 Sodium 137 Potassium 3.8 Chloride 106 Carbon Dioxide 26.0 Anion Gap 5 BUN 10 Creatinine 1.09 Estim Creat Clear Calc 82.55 Est GFR (MDRD) Af Amer 99 Est GFR (MDRD) Non-Af 82 BUN/Creatinine Ratio 9.2 L Glucose 109 H Calcium 9.1 Total Bilirubin 1.70 H AST 24 ALT 22 Alkaline Phosphatase 66 Total Protein 7.4 Albumin 4.1 Globulin 3.3 Albumin/Globulin Ratio 1.2 Lipase 54 L Discharge Plan Triage Chief Complaint: Anxiety ED Provider: Nolan Brady Dx/Rx/DC Orders Clinical Impression: Gastritis, Anxiety Instructions: ED Anxiety Reaction, ED Gastritis (Adult) Prescriptions: New ondansetron [ondansetron] 4 mg tablet,disintegrating 4 mg PO Q8H PRN PRN (Reason: Nausea) Qty: 10 0RF No Action buspirone 5 MG tablet 10 mg PO TID PRN (Reason: Anxiety) ondansetron [Zofran ODT] 8 MG tablet,disintegrating 8 mg PO Q8H PRN PRN (Reason: Nausea) promethazine 25 MG tablet 25 mg PO Q6H PRN PRN (Reason: Nausea) dicyclomine 10 MG capsule 20 mg PO 4X/DAY PRN PRN (Reason: Pain) loratadine [Allergy Relief (loratadine)] 10 MG tablet 10 mg PO DAILY melatonin-pyridoxine HCl (B6) 1 EACH tablet, IR and ER, biphasic 1 ea PO QHS famotidine [Pepcid] 40 MG tablet 40 mg PO QHS quetiapine 25 mg tablet 25 mg PO DAILY Creon 3,000-9,500- 15,000 unit Capsule,Delayed Release(Dr/Ec) 1 cap PO TID Rx Instructions: with meals Primary Care Provider: Care Physician,No Primary Referrals: Elle Redmond [Non-Staff] - 3-5 Days Care Physician,No Primary [Primary Care Provider] - Disposition Disposition: Home, Self Care
[2022-07-30 15:53] LABS: Absolute Lymphocyte Count 0.88 X10^3/uL (0.83-4.51); Absolute Neutrophil Count 5.1 X10^3/uL (2.0-7.7); Basophil# 0.01 X10^3/uL; Basophil% 0.1 % (0-1); Eosinophil# 0.01 X10^3/uL; Eosinophils% 0.1 % (0-5); Hematocrit 43.5 % (40-54); Hemoglobin 16.2 g/dL (13.0-16.5); Lymphocyte # 0.88 X10^3/ul (0.83-4.51); Lymphocyte % 12.9 % (19-41); Mean Corp Hgb Conc 37.2 g/dL (32-36); Mean Corpuscular Hgb 32.7 pg (27.0-32.0); Mean Corpuscular Volume 87.7 fL (80-94); Mean Platelet Vol. 10.2 fl (6.2-12.0); Monocyte# 0.78 X10^3/uL; Monocyte% 11.4 % (0-10); NRBC Flagged by Analyzer 0 % (0-5); Neutrophil # 5.12 X10^3/uL (2.7-7.7); Neutrophil % 75.1 % (47-70); Platelet Count 166 K/mm3 (150-450); RBC Distribution Width CV 11.8 % (11.6-14.6); RBC Distribution Width SD 37.7 fl (35.1-43.9); Red Blood Count 4.96 M/mm3 (4.6-6.2); White Blood Count 6.8 K/mm3 (4.4-11.0)
[2022-07-30 16:04] LABS: ALB/GLOB Ratio 1.2 RATIO (0.9-2.4); AST(SGOT) 24 U/L (15-37); Alanine Aminotransfer ALT/SGPT 22 U/L (16-61); Albumin, Serum 4.1 g/dL (3.2-5.0); Alkaline Phosphatase 66 U/L (45-117); Anion Gap 5 (5-15); BUN 10 mg/dL (7-18); BUN/Creat Ratio 9.2 RATIO (10-20); Calcium,Total 9.1 mg/dL (8.5-10.1); Chloride 106 mmol/L (98-107); Creatinine, Serum 1.09 mg/dL (0.70-1.30); EST Glomerular Filtration Rate 82 mL/min (>60); Est Glom Filt Rate - Afr Amer 99 mL/min (>60); Estimated Creatinine Clearance 82.55 ml/min; Globulin 3.3 g/dL (2.2-4.2); Glucose 109 mg/dL (74-106); Lipase 54 U/L (73-393); Potassium 3.8 mmol/L (3.5-5.1); Protein, Total 7.4 g/dL (6.4-8.2); Sodium Level 137 mmol/L (136-145)
[2022-07-30] MEDS: Ondansetron 4 MG/2 ML Vial IV (16:15)
[2022-07-30] MEDS: hydrOXYzine PAM 25 MG Capsule PO (16:15)
[2022-07-30] MEDS: 0.9% Normal Saline 1,000 ML 1000 ML IV (16:18)
== END 2022-07-30 16:40 | disposition home or self-care (01) ==
PROVIDERS: Emergency Provider Emergency Medicine; Visit Provider Emergency Medicine
DX: K29.70 Gastritis, unspecified, without bleeding (principal); F41.9 Anxiety disorder, unspecified; K21.9 Gastro-esophageal reflux disease without esophagitis; Z79.899 Other long term (current) drug therapy; Z87.891 Personal history of nicotine dependence
CPT/HCPCS: 80053; 83690; 85025; 96374; 99283; J2405

== ENCOUNTER 2022-08-20 11:20 | Emergency (ER) | payer MEDICARE, MEDICAID, SELFPAY ==
[2022-08-20 11:21] VITALS: BP 130/92; PULSE 102; RESP 18; TEMP 35.8; O2SAT 99; BMI 19.8
[2022-08-20] MEDS: Ondansetron ODT 4 MG Tablet PO (11:59)
[2022-08-20] MEDS: Mag Hydrox/Al Hydrox/Simeth 30 ML UDC PO (12:00)
[2022-08-20 12:01] LABS: Bacteria 0 SEEN /hpf (None Seen); Mucous, Urine 0 SEEN /hpf (<or=2+); Red Blood Cells-Urine 0 SEEN /hpf (0-5); Squamous Epithelial Cells - UA 0 SEEN /hpf (0-5); White Blood Cells 0 SEEN /hpf (0-5)
[2022-08-20 12:06] LABS: Color, Urine Straw (Yellow); Glucose, Dipstick Normal (Normal); Ketone-Dipstick Negative (Negative); Leukocyte Esterase-Dipstick Negative /ul (Negative); Nitrite-Dipstick Negative (Negative); Occult Blood-Urine Negative /ul (Negative); Protein-Dipstick Negative (Negative); Urine Bilirubin Dipstick Negative (Negative); Urine Clarity Clear (Clear); Urine Urobilinogen Normal (Normal)
--- NOTE | 2022-08-20 12:13 | ED.VIS.GI ---
HPI HPI - GI History of Present Illness Chief Complaint: Abd Pain Narrative Narrative: 37-year-old male presenting with epigastric pain. He states he has a history of GERD. He ate popcorn chicken and then he started to have burning in his stomach. He states he takes Pepcid at home usually and this has not helped. He denies nausea. No fever or chills. He states he has been able to drink fluids. He states that his primary doctor used to give him lidocaine that would help his stomach. He does not have any of this. PFSH PFSH Medical History Anxiety Chronic GERD Pancreatitis Tobacco use Home Medications buspirone 5 mg tablet 10 mg PO TID PRN Anxiety 06/10/17 [History Last Taken Unknown] dicyclomine 10 mg capsule 20 mg PO 4X/DAY PRN PRN Pain 06/10/17 [History Last Taken Unknown] famotidine 40 mg tablet (Pepcid) 40 mg PO QHS 06/10/17 [History Last Taken Unknown] loratadine 10 mg tablet (Allergy Relief (loratadine)) 10 mg PO DAILY 06/10/17 [History Last Taken Unknown] melatonin ER 10 mg-pyridoxine HCl (B6) 10 mg tab, immed-extend release 1 ea PO QHS 06/10/17 [History Last Taken Unknown] quetiapine 25 mg tablet 25 mg PO DAILY 06/28/21 [History Last Taken Unknown] lipase 3,000-protease 9,500-amylase 15,000 unit capsule, delayed rel (Creon) 1 cap PO TID Check with primary doctor 06/29/21 [History Last Taken Unknown] Allergy/AdvReac Type Severity Reaction Status Date / Time Penicillins Allergy Unknown Verified 08/20/22 11:20 sumatriptan [From Imitrex] Allergy Unknown Verified 08/20/22 11:20 sumatriptan succinate Allergy Unknown Verified 08/20/22 11:20 [From Imitrex] amoxicillin [Amoxicillin] AdvReac Nausea/Vom/ Verified 08/20/22 11:20 Diarrhea Surgical History History of herniorrhaphy No significant past surgical history Social History household members: family Smoking Status: Former smoker Smokeless tobacco user: chewing tobacco how long ago did patient quit smoking: Former cigarette tobacco use, now chew tobacco 2-3 wads daily. alcohol intake: never details: Patient states he currently is not drinking any alcoholic beverages substance use type: does not use ROS ROS ED Constitutional Constitutional ED: Denies chills, fever(s) or sweats Eyes Eyes: Denies blurry vision or change in vision ENT ENT ED: Denies ear pain or sore throat Cardiovascular Cardiovascular: Denies chest pain, palpitations or racing heartbeat Respiratory/Chest Respiratory/Chest: Denies cough, dyspnea or sputum Gastrointestinal Gastrointestinal: Reports abdominal pain; Denies constipation, diarrhea, nausea or vomiting Genitourinary Genitourinary ED: Denies dysuria, hematuria or urinary frequency Musculoskeletal Musculoskeletal: Denies arthralgias, myalgias or neck pain Integumentary Denies abscess, Abrasions or rash Neurologic Neurologic: Denies headache(s), paresthesias or weakness Psychiatric Psychiatric: Denies anxiety, depression, suicidal ideation or suicidal thoughts Endocrine Endocrinology: Denies polydipsia or polyuria EXAM Physical Exam Const Vital Signs: 08/20/22 11:21 Temperature 96.5 F L Temperature Source Temporal Pulse Rate 102 H Respiratory Rate 18 Blood Pressure 130/92 H Blood Pressure Mean 104 Pulse Ox 99 Oxygen Delivery Method Room Air Positive well nourished General Appearance ED: NAD HEENT Reports moist mucous membranes normocephalic and atraumatic Eyes PERRL and EOMs intact bilaterally Neck no lymphadenopathy Resp normal respiratory effort and clear to auscultation bilaterally Auscultation: Negative for rales, rhonchi or wheezes Cardio regular rate and regular rhythm GI Palpation: tender epigastric Neuro CN's II-XII intact bilaterally Sensorium / Orientation: alert Motor Exam: strength 5/5 throughout Psych mental status grossly normal and thought process normal Skin no wounds MDM MDM MDM Narrative Medical decision making narrative: Patient concerned for GERD versus gastritis. He is given a GI cocktail and Zofran. Abdominal exam is benign. Patient will be given Carafate and Zofran for home. Urinalysis normal with no evidence of infection, dehydration, urine ketones. He is to follow-up with his PCP to ensure resolution. He was given a referral to Dr. Burris. Impression: 1. Gastritis 2. History of GERD Lab Data Attestation: I reviewed the patient's lab results. Labs: Laboratory Results - last 24 hr 08/20/22 11:55 Urine Color Straw Urine Clarity Clear Urine pH 7.0 Ur Specific [place] 1.010 Urine Protein Negative Urine Glucose (UA) Normal Urine Ketones Negative Urine Occult Blood Negative Urine Nitrite Negative Urine Bilirubin Negative Urine Urobilinogen Normal Ur Leukocyte Esterase Negative Discharge Plan Triage Chief Complaint: Abd Pain ED Provider: Wally Richards Dx/Rx/DC Orders Prescriptions: No Action buspirone 5 MG tablet 10 mg PO TID PRN (Reason: Anxiety) dicyclomine 10 MG capsule 20 mg PO 4X/DAY PRN PRN (Reason: Pain) loratadine [Allergy Relief (loratadine)] 10 MG tablet 10 mg PO DAILY melatonin-pyridoxine HCl (B6) 1 EACH tablet, IR and ER, biphasic 1 ea PO QHS famotidine [Pepcid] 40 MG tablet 40 mg PO QHS quetiapine 25 mg tablet 25 mg PO DAILY Creon 3,000-9,500- 15,000 unit Capsule,Delayed Release(Dr/Ec) 1 cap PO TID Rx Instructions: with meals Primary Care Provider: Care Physician,No Primary Referrals: Care Physician,No Primary [Primary Care Provider] -
== END 2022-08-20 12:32 | disposition home or self-care (01) ==
PROVIDERS: Emergency Provider Student in an Organized Health Care Education/Training Program; Visit Provider Student in an Organized Health Care Education/Training Program
DX: K29.70 Gastritis, unspecified, without bleeding (principal); Z87.891 Personal history of nicotine dependence; Z79.899 Other long term (current) drug therapy
CPT/HCPCS: 81001; 99283

== ENCOUNTER 2022-09-03 12:39 | Emergency (ER) | payer MEDICARE, MEDICAID, SELFPAY ==
[2022-09-03 12:40] VITALS: BP 117/100; PULSE 117; RESP 18; TEMP 37.8; O2SAT 100; BMI 20.5
--- NOTE | 2022-09-03 15:35 | EDS_ITS ---
HPI History of Present Illness Chief Complaint: Nausea/Vomiting Informant: patient Narrative Narrative: Patient presents stating that his reflux is acting up. He states he gets episodes where he cannot keep anything down. He is having a strong acid taste in his mouth. He has epigastric discomfort. Normally he takes his Pepcid and drinks Pedialyte. But he states he vomited Pedialyte a couple times today. He denies back pain. He has had pancreatitis before but states he quit drinking a few years ago and has not had it since. Of note, it takes some time to get this history from the patient. Most questions that I ask him he gets seemingly very mad that I would consider asking him these questions. I explained to the patient that I have the information that is very important that I would routinely ask somebody with his symptoms. He should not take questions about risks for different illnesses as negative. This is called getting a full history. I ask if he had tried anything other than Pepcid in the past. He states that would mess up his body too much and he will not consider any other medicine but the medicine he is on is not working. He is mad because he has not had a dispute resolution analyst do a scope on him. Yet there have been no calls to dispute resolution analyst or primary physicians. I explained that I would be happy to help him get a referral and a name for follow-up. However, he would have to make some phone calls himself. He was upset with this also. PFSH PFSH Medical History Anxiety Chronic GERD Pancreatitis Tobacco use Home Medications buspirone 5 mg tablet 10 mg PO TID PRN Anxiety 06/10/17 [History Last Taken Unknown] dicyclomine 10 mg capsule 20 mg PO 4X/DAY PRN PRN Pain 06/10/17 [History Last Taken Unknown] famotidine 40 mg tablet (Pepcid) 40 mg PO QHS 06/10/17 [History Last Taken Unknown] loratadine 10 mg tablet (Allergy Relief (loratadine)) 10 mg PO DAILY 06/10/17 [History Last Taken Unknown] melatonin ER 10 mg-pyridoxine HCl (B6) 10 mg tab, immed-extend release 1 ea PO QHS 06/10/17 [History Last Taken Unknown] quetiapine 25 mg tablet 25 mg PO DAILY 06/28/21 [History Last Taken Unknown] lipase 3,000-protease 9,500-amylase 15,000 unit capsule, delayed rel (Creon) 1 cap PO TID Check with primary doctor 06/29/21 [History Last Taken Unknown] ondansetron 4 mg disintegrating tablet 4 mg PO Q8H PRN nausea and vomiting #10 tabs 08/20/22 [Rx Last Taken Unknown] sucralfate 100 mg/mL oral suspension (Carafate) 10 ml PO TID PRN epigastric pain #200 mL 08/20/22 [Rx Last Taken Unknown] esomeprazole magnesium 20 mg capsule,delayed release (Nexium) 20 mg PO DAILY #30 caps 09/03/22 [Rx Last Taken Unknown] promethazine 25 mg tablet 25 mg PO TID PRN nausea and vomiting #10 tabs 09/03/22 [Rx Last Taken Unknown] Allergy/AdvReac Type Severity Reaction Status Date / Time Penicillins Allergy Unknown Verified 09/03/22 12:42 sumatriptan [From Imitrex] Allergy Unknown Verified 09/03/22 12:42 sumatriptan succinate Allergy Unknown Verified 09/03/22 12:42 [From Imitrex] amoxicillin [Amoxicillin] AdvReac Nausea/Vom/ Verified 09/03/22 12:42 Diarrhea Surgical History History of herniorrhaphy No significant past surgical history Social History household members: family Smoking Status: Former smoker Smokeless tobacco user: chewing tobacco how long ago did patient quit smoking: Former cigarette tobacco use, now chew tobacco 2-3 wads daily. alcohol intake: never details: Patient states he currently is not drinking any alcoholic beverages substance use type: does not use ROS ROS ED Constitutional Constitutional ED: Denies chills or fever(s) ENT ENT ED: Denies rhinorrhea or sore throat Cardiovascular Cardiovascular: Denies chest pain or palpitations Respiratory/Chest Respiratory/Chest: Denies cough or dyspnea Gastrointestinal Gastrointestinal: Reports abdominal pain, nausea and vomiting; Denies constipation, diarrhea or melena Genitourinary Genitourinary ED: Denies dysuria or hematuria Musculoskeletal Musculoskeletal: Denies back pain Integumentary Denies rash Psychiatric Psychiatric: Reports anxiety Endocrine Endocrinology: Denies polydipsia or polyuria Hematologic/Lymphatic Hematologic/Lymphatic: Denies easy bleeding or easy bruising Allergic/Immunologic Allergic/Immunologic ED: Denies urticaria EXAM Physical Exam Const Vital Signs: 09/03/22 12:40 Temperature 100.0 F H Temperature Source Temporal Pulse Rate 117 H Respiratory Rate 18 Blood Pressure 117/100 H Blood Pressure Mean 105 Pulse Ox 100 Oxygen Delivery Method Room Air Positive well nourished and well developed General Appearance ED: well developed and NAD; Negative for pallor HEENT Reports dry mucous membranes HEENT Narrative: Mildly dry mucous membranes. Mouth ED: Yes dry mucous membranes Mouth: dry mucous membranes Eyes General Eye ED: Negative for pale conjunctiva or scleral icterus Neck no lymphadenopathy Chest Wall inspection of chest normal Resp normal respiratory effort and clear to auscultation bilaterally Cardio regular rate, regular rhythm and no murmurs GI normal to inspection, nondistended, normoactive bowel sounds GI Narrative: Very mild epigastric tenderness. No rebound or guarding. No distention. His bowel sounds sound quite normal. Back/Spine no CVA tenderness Extremity normal to inspection Psych Attitude: agitated Skin no rashes or lesions noted General Skin Exam: Negative for jaundice or pallor MDM MDM MDM Narrative Medical decision making narrative: Patient's she CBC showed minimal nonspecific white count elevation at 11.2. Hemoglobin was 16.8. Platelet count was normal. Electrolytes were normal. LFTs showed bilirubin 1.6 but this is where he normally runs. Lipase is negative. Alcohol is negative. Patient states he is feeling much better. He thinks the pantoprazole helped him. We discussed getting on a proton pump inhibitor. He states he is willing to try this because he thinks the meds worked. I will write for this. He has Zofran at home but states he did not take it again in case this helps. He also would like something because he feels like all the stress has caused a migraine. Lab Data Attestation: I reviewed the patient's lab results. Labs: Laboratory Results - last 24 hr 09/03/22 09/03/22 09/03/22 15:47 15:47 15:47 WBC 11.2 H RBC 5.24 Hgb 16.8 H Hct 47.4 MCV 90.5 MCH 32.1 H MCHC 35.4 RDW Std Deviation 40.6 RDW Coeff of Iggy 12.5 Plt Count 151 MPV 10.5 Immature Gran % (Auto) 0.400 Neut % (Auto) 89.3 H Lymph % (Auto) 4.5 L [place] % (Auto) 5.5 Eos % (Auto) 0.0 Baso % (Auto) 0.3 Absolute Neuts (auto) 10.0 H Absolute Lymphs (auto) 0.50 L Nucleated RBC % 0 Differential Comment SEE COMMENT Platelet Estimate ADEQUATE RBC Morphology N CHROM Anisocytosis RARE Macrocytosis RARE Sodium 144 Potassium 3.7 Chloride 109 H Carbon Dioxide 30.0 Anion Gap 5 BUN 8 Creatinine 0.82 Estim Creat Clear Calc 108.90 Est GFR (MDRD) Af Amer 138 Est GFR (MDRD) Non-Af 114 BUN/Creatinine Ratio 9.8 L Glucose 100 Calcium 8.8 Total Bilirubin 1.60 H AST 16 ALT 24 Alkaline Phosphatase 67 Total Protein 7.4 Albumin 4.2 Globulin 3.2 Albumin/Globulin Ratio 1.3 Lipase 50 L Ethyl Alcohol 5.0 Discharge Plan Triage Chief Complaint: Nausea/Vomiting ED Provider: Aaron Pena Dx/Rx/DC Orders Clinical Impression: Nausea & vomiting, Gastritis, History of migraine Instructions: ED Gastritis (Adult) Prescriptions: New esomeprazole magnesium [Nexium] 20 mg capsule,delayed release(DR/EC) 20 mg PO DAILY Qty: 30 0RF promethazine 25 mg tablet 25 mg PO TID PRN (Reason: nausea and vomiting) Qty: 10 0RF No Action buspirone 5 MG tablet 10 mg PO TID PRN (Reason: Anxiety) dicyclomine 10 MG capsule 20 mg PO 4X/DAY PRN PRN (Reason: Pain) loratadine [Allergy Relief (loratadine)] 10 MG tablet 10 mg PO DAILY melatonin-pyridoxine HCl (B6) 1 EACH tablet, IR and ER, biphasic 1 ea PO QHS famotidine [Pepcid] 40 MG tablet 40 mg PO QHS quetiapine 25 mg tablet 25 mg PO DAILY Creon 3,000-9,500- 15,000 unit Capsule,Delayed Release(Dr/Ec) 1 cap PO TID Rx Instructions: with meals sucralfate [Carafate] 100 mg/mL suspension 10 ml PO TID PRN (Reason: epigastric pain) Qty: 200 0RF ondansetron 4 mg tablet,disintegrating 4 mg PO Q8H PRN (Reason: nausea and vomiting) Qty: 10 0RF Primary Care Provider: Care Physician,No Primary Referrals: Friend,Graham, [Med Staff - Active Staff] - 1 Week Care Physician,No Primary [Primary Care Provider] - Disposition Disposition: Home, Self Care
[2022-09-03] MEDS: Ondansetron 4 MG/2 ML Vial IV (15:55)
[2022-09-03] MEDS: 0.9% Normal Saline 1,000 ML 1000 ML IV (15:55)
[2022-09-03] MEDS: Mag Hydrox/Al Hydrox/Simeth 30 ML UDC PO (15:55)
[2022-09-03 15:58] LABS: Basophil# 0.03 X10^3/uL; Basophil% 0.3 % (0-1); Hematocrit 47.4 % (40-54); Hemoglobin 16.8 g/dL (13.0-16.5); Lymphocyte % 4.5 % (19-41); Mean Corp Hgb Conc 35.4 g/dL (32-36); Mean Corpuscular Hgb 32.1 pg (27.0-32.0); Mean Corpuscular Volume 90.5 fL (80-94); Mean Platelet Vol. 10.5 fl (6.2-12.0); Monocyte# 0.62 X10^3/uL; Monocyte% 5.5 % (0-10); NRBC Flagged by Analyzer 0 % (0-5); Neutrophil # 9.98 X10^3/uL (2.7-7.7); Neutrophil % 89.3 % (47-70); POSITIVE DIFFERENTIAL YES; Platelet Count 151 K/mm3 (150-450); RBC Distribution Width CV 12.5 % (11.6-14.6); RBC Distribution Width SD 40.6 fl (35.1-43.9); Red Blood Count 5.24 M/mm3 (4.6-6.2); White Blood Count 11.2 K/mm3 (4.4-11.0)
[2022-09-03 16:00] LABS: Differential Indicated SCAN CRITERIA MET
[2022-09-03 16:14] LABS: ALB/GLOB Ratio 1.3 RATIO (0.9-2.4); AST(SGOT) 16 U/L (15-37); Alanine Aminotransfer ALT/SGPT 24 U/L (16-61); Albumin, Serum 4.2 g/dL (3.2-5.0); Alkaline Phosphatase 67 U/L (45-117); Anion Gap 5 (5-15); BUN 8 mg/dL (7-18); BUN/Creat Ratio 9.8 RATIO (10-20); Calcium,Total 8.8 mg/dL (8.5-10.1); Chloride 109 mmol/L (98-107); Creatinine, Serum 0.82 mg/dL (0.70-1.30); EST Glomerular Filtration Rate 114 mL/min (>60); Est Glom Filt Rate - Afr Amer 138 mL/min (>60); Globulin 3.2 g/dL (2.2-4.2); Glucose 100 mg/dL (74-106); Lipase 50 U/L (73-393); Potassium 3.7 mmol/L (3.5-5.1); Protein, Total 7.4 g/dL (6.4-8.2); Sodium Level 144 mmol/L (136-145)
[2022-09-03 16:19] LABS: Anisocytosis RARE; Macrocytosis RARE; Platelet Estimate ADEQUATE (ADEQ); Red Cell Morphology N CHROM NORMAL (NORM C&C)
[2022-09-03 17:00] VITALS: BP 140/88
[2022-09-03] MEDS: DiphenhydrAMINE 50 MG/ML Syringe 25 MG IV (17:07)
[2022-09-03] MEDS: proCHLORPERazine 10 MG/2 ML Vial 5 MG IV (17:07)
[2022-09-03 17:27] VITALS: RESP 22
== END 2022-09-03 17:28 | disposition home or self-care (01) ==
PROVIDERS: Emergency Provider Emergency Medicine; Visit Provider Emergency Medicine
DX: K29.70 Gastritis, unspecified, without bleeding (principal); R11.2 Nausea with vomiting, unspecified; K21.9 Gastro-esophageal reflux disease without esophagitis; Z79.899 Other long term (current) drug therapy; Z87.891 Personal history of nicotine dependence
CPT/HCPCS: 80053; 82077; 83690; 85025; 87804; 96361; 96365; 96375; 99284; J7030; A4216; J2405; J3490

== ENCOUNTER 2022-09-09 13:18 | Emergency (ER) | payer MEDICARE, MEDICAID, SELFPAY ==
[2022-09-09 13:19] VITALS: BP 113/88; PULSE 98; RESP 18; TEMP 36.4; O2SAT 99; BMI 19.0
--- NOTE | 2022-09-09 15:55 | EDS_ITS ---
HPI HPI - URI History of Present Illness Chief Complaint: Cold Sx Detail of Chief Complaint: Sore throat for 4 days. Informant: patient Onset/Context/Timing Onset: Days Context: Gradual Onset Timing: Continuous Current Severity: Mild Maximum Severity: Mild Associated Symptoms Associated Symptoms: Positive for Nasal Congestion Narrative Narrative: 35-year-old male history of anxiety. States a sore throat nasal congestion for about 4 days. Thinks it is from allergies. Denies nausea, vomiting, diarrhea or fever. No recent hospitalization. Prior similar symptoms: Yes Recent Illness/Hospitalization: No ROS ROS ED ROS Narrative Sore throat. Review of Systems ROS Unobtainable: Denies due to encephalopathy Constitutional Constitutional ED: Denies chills or fever(s) Eyes Eyes: Denies blurry vision ENT ENT ED: Reports rhinorrhea and sore throat; Denies ear pain Cardiovascular Cardiovascular: Denies chest pain or palpitations Respiratory/Chest Respiratory/Chest: Denies cough or dyspnea Gastrointestinal Gastrointestinal: Denies abdominal pain, constipation, diarrhea, melena, nausea or vomiting Genitourinary Genitourinary ED: Denies dysuria Musculoskeletal Musculoskeletal: Denies arthralgias Integumentary Denies abscess Neurologic Neurologic: Denies headache(s) Psychiatric Psychiatric: Denies anxiety Endocrine Endocrinology: Denies cold intolerance Hematologic/Lymphatic Hematologic/Lymphatic: Denies easy bleeding Allergic/Immunologic Allergic/Immunologic ED: Denies mouth swelling PFSH PFSH Medical History Anxiety Chronic GERD Pancreatitis Tobacco use Home Medications buspirone 5 mg tablet 10 mg PO TID PRN Anxiety 06/10/17 [History Last Taken Unknown] dicyclomine 10 mg capsule 20 mg PO 4X/DAY PRN PRN Pain 06/10/17 [History Last Taken Unknown] famotidine 40 mg tablet (Pepcid) 40 mg PO QHS 06/10/17 [History Last Taken Unkno wn] loratadine 10 mg tablet (Allergy Relief (loratadine)) 10 mg PO DAILY 06/10/17 [History Last Taken Unknown] melatonin ER 10 mg-pyridoxine HCl (B6) 10 mg tab, immed-extend release 1 ea PO QHS 06/10/17 [History Last Taken Unknown] quetiapine 25 mg tablet 25 mg PO DAILY 06/28/21 [History Last Taken Unknown] lipase 3,000-protease 9,500-amylase 15,000 unit capsule, delayed rel (Creon) 1 cap PO TID Check with primary doctor 06/29/21 [History Last Taken Unknown] ondansetron 4 mg disintegrating tablet 4 mg PO Q8H PRN nausea and vomiting #10 tabs 08/20/22 [Rx Last Taken Unknown] sucralfate 100 mg/mL oral suspension (Carafate) 10 ml PO TID PRN epigastric pain #200 mL 08/20/22 [Rx Last Taken Unknown] esomeprazole magnesium 20 mg capsule,delayed release (Nexium) 20 mg PO DAILY #30 caps 09/03/22 [Rx Last Taken Unknown] promethazine 25 mg tablet 25 mg PO TID PRN nausea and vomiting #10 tabs 09/03/22 [Rx Last Taken Unknown] Allergy/AdvReac Type Severity Reaction Status Date / Time Penicillins Allergy Unknown Verified 09/09/22 15:07 sumatriptan [From Imitrex] Allergy Unknown Verified 09/09/22 15:07 sumatriptan succinate Allergy Unknown Verified 09/09/22 15:07 [From Imitrex] amoxicillin [Amoxicillin] AdvReac Nausea/Vom/ Verified 09/09/22 15:07 Diarrhea Surgical History History of herniorrhaphy No significant past surgical history Social History household members: family Smoking Status: Former smoker Smokeless tobacco user: chewing tobacco how long ago did patient quit smoking: Former cigarette tobacco use, now chew tobacco 2-3 wads daily. alcohol intake: never details: Patient states he currently is not drinking any alcoholic beverages substance use type: does not use EXAM Physical Exam Narrative Exam Narrative: 37-year-old male no acute distress vital signs stable afebrile. Pulse ox 9 9% room air no hypoxia. H EENT exam TMs normal bilaterally. Posterior pharynx erythematous. No exudate. No trouble swallowing or breathing. No stridor or drooling. Moist mucous membranes. Neck nontender no lymphadenopathy. Lungs clear to auscultation. Heart regular rhythm no murmur. Abdomen soft nontender. Moving all 4 extremities. Nontender no edema. Neurologic exam normal. Const Vital Signs: 09/09/22 13:19 09/09/22 15:07 Temperature 97.6 F L Temperature Source Temporal Pulse Rate 98 Respiratory Rate 18 Respiratory Effort Normal Non-Labored Respiratory Depth Normal Respiratory Pattern Normal Blood Pressure 113/88 H Blood Pressure Mean 96 Pulse Ox 99 Oxygen Delivery Method Room Air Room Air Positive well nourished and well developed; Negative for obese, cachectic or contractures General Appearance ED: well developed and NAD; Negative for cachectic, contractures, cyanotic, diaphoretic or pallor Nutritional Appearance: Negative for cachectic or obese HEENT Reports moist mucous membranes; Denies dry mucous membranes normocephalic and atraumatic; Negative for scalp tenderness Face and Sinus: Negative for sinus tenderness Mouth ED: No dry mucous membranes Mouth: No dry mucous membranes Teeth and Gingiva: Negative for caries Throat: posterior oropharynx abnormal Positive for erythema; Negative for exudates, laceration or foreign body; Negative for posterior oropharynx normal Eyes PERRL and EOMs intact bilaterally General Eye ED: Negative for pale conjunctiva or scleral icterus Neck no lymphadenopathy, supple, no meningeal signs and no JVD General: Negative for anterior neck swelling or lymphadenopathy Resp normal respiratory effort and clear to auscultation bilaterally Effort and Inspection: Negative for retractions, pain with movement or other Auscultation: Negative for rales, rhonchi or wheezes Cardio S1 normal heart sound, S2 normal heart sound and no murmurs Rate: regular rate; Negative for bradycardia or tachycardic Rhythm: regular rhythm; Negative for abnormal rhythm GI non-tender, non-distended and no masses Inspection: Negative for abdominal distention Auscultation: normoactive bowel sounds Palpation: soft; Negative for tender or guarding Back/Spine no CVA tenderness and normal ROM General Back: Negative for CVA tenderness Cervical Spine: Negative for cervical spine tenderness Thoracic Spine / Upper Back: Negative for thoracic spinal tenderness Lumbar Spine / Lower Back: Negative for lumbar spinal tenderness Sacrum: Negative for tenderness Extremity normal to inspection and full ROM General Extremety ED: Negative for cyanosis, tenderness or other findings General Extremity: Negative for cyanosis or other findings Neuro oriented x3, CN's II-XII intact bilaterally and no sensory deficits noted Sensorium / Orientation: alert, oriented to person, oriented to place and oriented to time; Negative for orientation impaired, lethargic or stuporous Motor Exam: strength 5/5 throughout Psych mental status grossly normal Appearance: Negative for other Attitude: No agitated Mood & Affect: Negative for depressed, anxious or tearful Skin General Skin Exam: Negative for jaundice or pallor Lesions: no lesions Rashes: no rashes Trauma: Negative for abrasion MDM MDM MDM Narrative Medical decision making narrative: 37-year-old male with sore throat. Most likely has a viral syndrome. He will be tested for rapid strep. He did not want to wait in the ER due to his concern of getting sick from being here. You will be called if the rapid strep comes back positive. Lab Data Attestation: I reviewed the patient's lab results. Lab results narrative: Rapid strep negative. Discharge Plan Triage Chief Complaint: Cold Sx ED Provider: Marco Antonio Cintron Dx/Rx/DC Orders Clinical Impression: Viral pharyngitis Instructions: ED Pharyngitis, Viral Prescriptions: No Action buspirone 5 MG tablet 10 mg PO TID PRN (Reason: Anxiety) dicyclomine 10 MG capsule 20 mg PO 4X/DAY PRN PRN (Reason: Pain) loratadine [Allergy Relief (loratadine)] 10 MG tablet 10 mg PO DAILY melatonin-pyridoxine HCl (B6) 1 EACH tablet, IR and ER, biphasic 1 ea PO QHS famotidine [Pepcid] 40 MG tablet 40 mg PO QHS quetiapine 25 mg tablet 25 mg PO DAILY Creon 3,000-9,500- 15,000 unit Capsule,Delayed Release(Dr/Ec) 1 cap PO TID Rx Instructions: with meals sucralfate [Carafate] 100 mg/mL suspension 10 ml PO TID PRN (Reason: epigastric pain) Qty: 200 0RF ondansetron 4 mg tablet,disintegrating 4 mg PO Q8H PRN (Reason: nausea and vomiting) Qty: 10 0RF esomeprazole magnesium [Nexium] 20 mg capsule,delayed release(DR/EC) 20 mg PO DAILY Qty: 30 0RF promethazine 25 mg tablet 25 mg PO TID PRN (Reason: nausea and vomiting) Qty: 10 0RF Primary Care Provider: Care Physician,No Primary Referrals: Care Physician,No Primary [Primary Care Provider] - Activity Restrictions/Additional Instructions: This is most likely a virus. Plenty of fluids and rest. Tylenol and Motrin for discomfort. Warm salt water gargling. Chloraseptic spray will help with the discomfort of your throat. You can use Mucinex to help with the congestion. We will do a rapid strep test if that is positive I will call you and call you in a prescription if you do not get a call then that means is negative. Disposition Disposition: Home, Self Care Discharge Date/Time: 09/09/22 16:06
== END 2022-09-09 16:06 | disposition home or self-care (01) ==
PROVIDERS: Emergency Provider Emergency Medicine; Visit Provider Emergency Medicine
DX: J02.9 Acute pharyngitis, unspecified (principal); F41.9 Anxiety disorder, unspecified; Z87.891 Personal history of nicotine dependence
CPT/HCPCS: 87880; 99282

== ENCOUNTER 2022-10-10 21:06 | Emergency (ER) | payer MEDICARE, MEDICAID, SELFPAY ==
[2022-10-10 21:07] VITALS: BP 133/100; PULSE 103; RESP 18; TEMP 36.1; O2SAT 99; BMI 21.2
--- NOTE | 2022-10-10 21:27 | EDS_ITS ---
HPI HPI - URI History of Present Illness Chief Complaint: Sore Throat Narrative Narrative: 37-year-old male past medical history of seasonal allergies presents with sore throat and white patches on the back of his throat for the last 3 to 4 days. He has been seen in the emergency department for this previously. He states that sometimes he gets a sore throat and swelling of his throat from his allergies. He was taking Benadryl which was helping. However, he now states that he has pain when he swallows and that he noticed white patches on the back of his throat. He presents wanting to make them go down. He denies any fevers or chills. No nausea or vomiting. No other symptoms. ROS ROS ED ROS Narrative Constitutional: No fever, no chills. HEENT: Positive sore throat. No neck pain. No loss of vision. No rhinorrhea. Complains of swelling on both sides of his throat. Cardiovascular: No chest pain. No palpitations. No pedal edema. Respiratory: No cough, no shortness of breath. Abdominal: No abdominal pain. No nausea. No vomiting. Genitourinary: No dysuria. No hematuria. Musculoskeletal: No myalgias. No arthralgias. Neurologic: No headaches. No dizziness. No lightheadedness. Skin: No rash. No change in color. Psychiatric: No depression. No anxiety. PFSH PFSH Medical History Anxiety Chronic GERD Pancreatitis Tobacco use Home Medications buspirone 5 mg tablet 10 mg PO TID PRN Anxiety 06/10/17 [History Last Taken Unknown] dicyclomine 10 mg capsule 20 mg PO 4X/DAY PRN PRN Pain 06/10/17 [History Last Taken Unknown] famotidine 40 mg tablet (Pepcid) 40 mg PO QHS 06/10/17 [History Last Taken Unknown] loratadine 10 mg tablet (Allergy Relief (loratadine)) 10 mg PO DAILY 06/10/17 [History Last Taken Unknown] melatonin ER 10 mg-pyridoxine HCl (B6) 10 mg tab, immed-extend release 1 ea PO QHS 06/10/17 [History Last Taken Unknown] quetiapine 25 mg tablet 25 mg PO DAILY 06/28/21 [History Last Taken Unknown] lipase 3,000-protease 9,500-amylase 15,000 unit capsule, delayed rel (Creon) 1 cap PO TID Check with primary doctor 06/29/21 [History Last Taken Unknown] ondansetron 4 mg disintegrating tablet 4 mg PO Q8H PRN nausea and vomiting #10 tabs 08/20/22 [Rx Last Taken Unknown] sucralfate 100 mg/mL oral suspension (Carafate) 10 ml PO TID PRN epigastric pain #200 mL 08/20/22 [Rx Last Taken Unknown] esomeprazole magnesium 20 mg capsule,delayed release (Nexium) 20 mg PO DAILY #30 caps 09/03/22 [Rx Last Taken Unknown] promethazine 25 mg tablet 25 mg PO TID PRN nausea and vomiting #10 tabs 09/03/22 [Rx Last Taken Unknown] Allergy/AdvReac Type Severity Reaction Status Date / Time Penicillins Allergy Unknown Verified 10/10/22 21:11 sumatriptan [From Imitrex] Allergy Unknown Verified 10/10/22 21:11 sumatriptan succinate Allergy Unknown Verified 10/10/22 21:11 [From Imitrex] amoxicillin [Amoxicillin] AdvReac Nausea/Vom/ Verified 10/10/22 21:11 Diarrhea Surgical History History of herniorrhaphy No significant past surgical history Social History household members: family Smoking Status: Former smoker Smokeless tobacco user: chewing tobacco how long ago did patient quit smoking: Former cigarette tobacco use, now chew tobacco 2-3 wads daily. alcohol intake: never details: Patient states he currently is not drinking any alcoholic beverages substance use type: does not use EXAM Physical Exam Narrative Exam Narrative: Afebrile. Vital signs noted. HEENT: Normocephalic. Atraumatic. PERRL, EOMI. Neck soft and supple. No point tenderness or step off. Airway patent. No drooling or trismus. No pharyngeal erythema. No cervical lymphadenopathy appreciated. No meningismus. Cardiovascular: Regular rate and rhythm with intermittent tachycardia. No murmurs, rubs, or gallops appreciated. Respiratory: No tachypnea. Lungs clear to auscultation bilaterally. Gastrointestinal: Abdomen soft, nontender, with normoactive bowel sounds. No rebound or guarding. Neurological: Awake. Alert. Nonfocal, nonlateralizing. Skin: No rash. Normal color. No pallor. Musculoskeletal: No pedal edema. Full range of motion extremities. Const Vital Signs: 10/10/22 21:07 Temperature 97 F L Temperature Source Temporal Pulse Rate 103 H Respiratory Rate 18 Blood Pressure 133/100 H Blood Pressure Mean 111 Pulse Ox 99 Oxygen Delivery Method Room Air MDM MDM MDM Narrative Medical decision making narrative: Patient's pulse ox is 99% on room air without evidence of hypoxia. I discussed the use of Mucinex with him but he states that previously they tried to get him to take it but I do not have the money for it. I see no exudate on the tonsillar pillars or in the posterior pharynx. Rapid strep was obtained. I reviewed the EMR from his last visit last month for the same thing, and he did not want to wait for his rapid strep test. This time, he was willing to wait. Rapid strep is negative. I had discussed this over the telephone with laboratory. He was given dexamethasone 8 mg orally as a one-time dose for his pharyngitis. Treatment be symptomatic. I feel he c an be discharged safely home with follow-up. He was referred to ENT/otolaryngology to see as needed. Return instructions to the emergency department were reviewed. Disposition was discharged home in stable condition. Discharge Plan Triage Chief Complaint: Sore Throat ED Provider: Alan Begum Dx/Rx/DC Orders Clinical Impression: Pharyngitis, Odynophagia Instructions: ED Pharyngitis, Viral Prescriptions: No Action buspirone 5 MG tablet 10 mg PO TID PRN (Reason: Anxiety) dicyclomine 10 MG capsule 20 mg PO 4X/DAY PRN PRN (Reason: Pain) loratadine [Allergy Relief (loratadine)] 10 MG tablet 10 mg PO DAILY melatonin-pyridoxine HCl (B6) 1 EACH tablet, IR and ER, biphasic 1 ea PO QHS famotidine [Pepcid] 40 MG tablet 40 mg PO QHS quetiapine 25 mg tablet 25 mg PO DAILY Creon 3,000-9,500- 15,000 unit Capsule,Delayed Release(Dr/Ec) 1 cap PO TID Rx Instructions: with meals sucralfate [Carafate] 100 mg/mL suspension 10 ml PO TID PRN (Reason: epigastric pain) Qty: 200 0RF ondansetron 4 mg tablet,disintegrating 4 mg PO Q8H PRN (Reason: nausea and vomiting) Qty: 10 0RF esomeprazole magnesium [Nexium] 20 mg capsule,delayed release(DR/EC) 20 mg PO DAILY Qty: 30 0RF promethazine 25 mg tablet 25 mg PO TID PRN (Reason: nausea and vomiting) Qty: 10 0RF Primary Care Provider: Care Physician,No Primary Referrals: Parish Silva MD [Med Staff - Active Staff] - As Needed Care Physician,No Primary [Primary Care Provider] - Disposition Disposition: Home, Self Care
[2022-10-10] MEDS: dexAMETHasone 4 MG Tablet 8 MG PO (22:51)
[2022-10-10 22:52] VITALS: BP 136/90; PULSE 98; RESP 15; O2SAT 99
== END 2022-10-10 22:53 | disposition home or self-care (01) ==
PROVIDERS: Emergency Provider Emergency Medicine; Visit Provider Emergency Medicine
DX: J02.9 Acute pharyngitis, unspecified (principal); Z87.891 Personal history of nicotine dependence
CPT/HCPCS: 87880; 99282

== ENCOUNTER 2022-12-01 20:44 | Emergency (ER) | payer MEDICARE, MEDICAID, SELFPAY ==
[2022-12-01 20:44] VITALS: BP 129/89; PULSE 86; RESP 18; TEMP 37.4; O2SAT 95; BMI 21.9
[2022-12-01] MEDS: Ondansetron ODT 4 MG Tablet PO (21:21)
--- NOTE | 2022-12-01 21:24 | EDS_ITS ---
HPI History of Present Illness Chief Complaint: Nausea/Vomiting Detail of Chief Complaint: Persistent nausea with vomiting Informant: patient Onset/Context/Timing Onset: Today Context: Sudden Onset Timing: Intermittent Quality: Nausea has been persistent vomiting is been intermittent. Last emesis 1330 Location: GI Current Severity: Mild Maximum Severity: Moderate Worsened by: None thing Relieved by: Nothing Associated Symptoms Associated Symptoms: Nothing Narrative Narrative: Patient is a 37-year-old male who presents with nausea and vomiting. Last emesis 1330. Patient denies dry mouth or thirst. Patient denies orthostatic symptoms. Patient denies fever or chills. Patient denies ill contacts. Patient states emesis is green in color. He denies black or maroon-colored stool. He does endorse history of GERD. He denies bruising easily. He denies headache, visual, ocular auditory symptoms. Patient denies upper respiratory tract infectious symptoms. Patient denies myalgias or arthralgias. Prior similar symptoms: Yes Recent Illness/Hospitalization: No PFSH PFSH Medical History Anxiety Chronic GERD Pancreatitis Tobacco use Home Medications buspirone 5 mg tablet 10 mg PO TID PRN Anxiety 06/10/17 [History Last Taken Unknown] dicyclomine 10 mg capsule 20 mg PO 4X/DAY PRN PRN Pain 06/10/17 [History Last Taken Unknown] famotidine 40 mg tablet (Pepcid) 40 mg PO QHS 06/10/17 [History Last Taken Unknown] loratadine 10 mg tablet (Allergy Relief (loratadine)) 10 mg PO DAILY 06/10/17 [History Last Taken Unknown] melatonin ER 10 mg-pyridoxine HCl (B6) 10 mg tab, immed-extend release 1 ea PO QHS 06/10/17 [History Last Taken Unknown] quetiapine 25 mg tablet 25 mg PO DAILY 06/28/21 [History Last Taken Unknown] lipase 3,000-protease 9,500-amylase 15,000 unit capsule, delayed rel (Creon) 1 cap PO TID Check with primary doctor 06/29/21 [History Last Taken Unknown] ondansetron 4 mg disintegrating tablet 4 mg PO Q8H PRN nausea and vomiting #10 tabs 08/20/22 [Rx Last Taken Unknown] sucralfate 100 mg/mL oral suspension (Carafate) 10 ml PO TID PRN epigastric pain #200 mL 08/20/22 [Rx Last Taken Unknown] esomeprazole magnesium 20 mg capsule,delayed release (Nexium) 20 mg PO DAILY #30 caps 09/03/22 [Rx Last Taken Unknown] promethazine 25 mg tablet 25 mg PO TID PRN nausea and vomiting #10 tabs 09/03/22 [Rx Last Taken Unknown] ondansetron 4 mg disintegrating tablet 4 mg PO Q8H PRN PRN Nausea #10 tabs 12/01/22 [Rx Last Taken Unknown] Allergy/AdvReac Type Severity Reaction Status Date / Time Penicillins Allergy Unknown Verified 12/01/22 20:49 sumatriptan [From Imitrex] Allergy Unknown Verified 12/01/22 20:49 sumatriptan succinate Allergy Unknown Verified 12/01/22 20:49 [From Imitrex] amoxicillin [Amoxicillin] AdvReac Nausea/Vom/ Verified 12/01/22 20:49 Diarrhea Surgical History History of herniorrhaphy No significant past surgical history Social History household members: family Smoking Status: Former smoker Smokeless tobacco user: chewing tobacco how long ago did patient quit smoking: Former cigarette tobacco use, now chew tobacco 2-3 wads daily. alcohol intake: never details: Patient states he currently is not drinking any alcoholic beverages substance use type: does not use ROS ROS ED Constitutional Constitutional ED: Denies chills, fever(s), subjective, sweats or weight loss Eyes Eyes: Denies blurry vision, change in vision or diplopia ENT ENT ED: Denies ear pain, rhinorrhea or sore throat Cardiovascular Cardiovascular: Denies chest pain, palpitations or racing heartbeat Respiratory/Chest Respiratory/Chest: Denies cough, dyspnea or dyspnea on exertion Gastrointestinal Gastrointestinal: Reports abdominal pain, nausea and vomiting; Denies constipation or diarrhea Genitourinary Genitourinary ED: Denies dysuria, hematuria or urinary frequency Musculoskeletal Musculoskeletal: Denies arthralgias, back pain, myalgias or neck pain Integumentary Denies Abrasions or rash Neurologic Neurologic: Denies headache(s), paresthesias or weakness Hematologic/Lymphatic Hematologic/Lymphatic: Reports systems reviewed and no addt'l complaints, except as documented EXAM Physical Exam Const Vital Signs: 12/01/22 20:44 Temperature 99.3 F H Temperature Source Oral Pulse Rate 86 Respiratory Rate 18 Blood Pressure 129/89 H Blood Pressure Mean 102 Pulse Ox 95 Oxygen Delivery Method Room Air Positive well nourished and well developed General Appearance ED: well developed and NAD; Negative for cyanotic, diaphoretic or pallor HEENT Reports moist mucous membranes HEENT Narrative: Head is atraumatic normocephalic. Ears normal. Nares patent. Posterior pharynx is normal. Eyes PERRL and EOMs intact bilaterally General Eye ED: Negative for pale conjunctiva or scleral icterus Neck no lymphadenopathy, supple and no JVD Chest Wall inspection of chest normal and palpation of chest normal Resp normal respiratory effort and clear to auscultation bilaterally Cardio regular rate, regular rhythm, S1 normal heart sound and S2 normal heart sound GI normal to inspection, nondistended, normoactive bowel sounds, non-tender, non- distended and no masses; Negative for hepatosplenomegaly Palpation: soft Back/Spine no CVA tenderness Extremity normal to inspection Neuro oriented x3, CN's II-XII intact bilaterally and no sensory deficits noted Sensorium / Orientation: alert Psych mental status grossly normal Skin no rashes or lesions noted, no wounds and skin turgor normal General Skin Exam: elasticity normal; Negative for jaundice or pallor MDM MDM MDM Narrative Medical decision making narrative: Patient clinically does not appear dehydrated. We will treat his nausea and vomiting with Zofran since he has a benign abdomen and vital signs are unremarkable. Laboratory tests are not indicated. Prior records were reviewed. Patient notably presents for dental pain. He also has presented in the past for nausea and vomiting. He does have a remote history of gastritis. As documented in the physical exam portion of the chart there is no evidence of coffee-ground emesis or blood in his emesis. Discharge Plan Triage Chief Complaint: Nausea/Vomiting ED Provider: Michel Stephenson Dx/Rx/DC Orders Clinical Impression: Nausea & vomiting Prescriptions: New ondansetron [ondansetron] 4 mg tablet,disintegrating 4 mg PO Q8H PRN PRN (Reason: Nausea) Qty: 10 0RF No Action buspirone 5 MG tablet 10 mg PO TID PRN (Reason: Anxiety) dicyclomine 10 MG capsule 20 mg PO 4X/DAY PRN PRN (Reason: Pain) loratadine [Allergy Relief (loratadine)] 10 MG tablet 10 mg PO DAILY melatonin-pyridoxine HCl (B6) 1 EACH tablet, IR and ER, biphasic 1 ea PO QHS famotidine [Pepcid] 40 MG tablet 40 mg PO QHS quetiapine 25 mg tablet 25 mg PO DAILY Creon 3,000-9,500- 15,000 unit Capsule,Delayed Release(Dr/Ec) 1 cap PO TID Rx Instructions: with meals sucralfate [Carafate] 100 mg/mL suspension 10 ml PO TID PRN (Reason: epigastric pain) Qty: 200 0RF ondansetron 4 mg tablet,disintegrating 4 mg PO Q8H PRN (Reason: nausea and vomiting) Qty: 10 0RF esomeprazole magnesium [Nexium] 20 mg capsule,delayed release(DR/EC) 20 mg PO DAILY Qty: 30 0RF promethazine 25 mg tablet 25 mg PO TID PRN (Reason: nausea and vomiting) Qty: 10 0RF Primary Care Provider: NEVAEH LOPEZ Referrals: NEVAEH LOPEZ [Other] - 3-5 Days if not improving Disposition Disposition: Home, Self Care
[2022-12-01 21:38] VITALS: BP 127/63; PULSE 64
== END 2022-12-01 21:39 | disposition home or self-care (01) ==
PROVIDERS: Emergency Provider Emergency Medicine; Visit Provider Emergency Medicine
DX: R11.2 Nausea with vomiting, unspecified (principal); Z87.891 Personal history of nicotine dependence
CPT/HCPCS: 99284

== ENCOUNTER 2022-12-31 08:54 | Emergency (ER) | payer MEDICARE, MEDICAID, SELFPAY ==
[2022-12-31 08:55] VITALS: BP 112/70; PULSE 79; RESP 16; TEMP 36.6; O2SAT 99; BMI 20.3
--- NOTE | 2022-12-31 09:20 | EDS_ITS ---
HPI History of Present Illness Chief Complaint: Wound Detail of Chief Complaint: Right forehead redness Informant: patient Onset/Context/Timing Onset: Days Context: Gradual Onset Timing: Continuous Current Severity: Mild Maximum Severity: Mild Narrative Narrative: 37-year-old male history of anxiety. States has had redness on his right forehead for about 3 days. Saw his primary care physician who started him on Keflex and he just went to have it reevaluated. He denies any fever or chills. He is not reportedly diabetic. Prior similar symptoms: No Recent Illness/Hospitalization: No PFSH PFSH Medical History Anxiety Chronic GERD Pancreatitis Tobacco use Home Medications buspirone 5 mg tablet 10 mg PO TID PRN Anxiety 06/10/17 [History Last Taken Unknown] dicyclomine 10 mg capsule 20 mg PO 4X/DAY PRN PRN Pain 06/10/17 [History Last Taken Unknown] famotidine 40 mg tablet (Pepcid) 40 mg PO QHS 06/10/17 [History Last Taken Unknown] loratadine 10 mg tablet (Allergy Relief (loratadine)) 10 mg PO DAILY 06/10/17 [History Last Taken Unknown] melatonin ER 10 mg-pyridoxine HCl (B6) 10 mg tab, immed-extend release 1 ea PO QHS 06/10/17 [History Last Taken Unknown] quetiapine 25 mg tablet 25 mg PO DAILY 06/28/21 [History Last Taken Unknown] lipase 3,000-protease 9,500-amylase 15,000 unit capsule, delayed rel (Creon) 1 cap PO TID Check with primary doctor 06/29/21 [History Last Taken Unknown] ondansetron 4 mg disintegrating tablet 4 mg PO Q8H PRN nausea and vomiting #10 tabs 08/20/22 [Rx Last Taken Unknown] sucralfate 100 mg/mL oral suspension (Carafate) 10 ml PO TID PRN epigastric pain #200 mL 08/20/22 [Rx Last Taken Unknown] esomeprazole magnesium 20 mg capsule,delayed release (Nexium) 20 mg PO DAILY #30 caps 09/03/22 [Rx Last Taken Unknown] promethazine 25 mg tablet 25 mg PO TID PRN nausea and vomiting #10 tabs 09/03/22 [Rx Last Taken Unknown] ondansetron 4 mg disintegrating tablet 4 mg PO Q8H PRN PRN Nausea #10 tabs 12/01/22 [Rx Last Taken Unknown] Allergy/AdvReac Type Severity Reaction Status Date / Time Penicillins Allergy Unknown Verified 12/31/22 08:59 sumatriptan [From Imitrex] Allergy Unknown Verified 12/31/22 08:59 sumatriptan succinate Allergy Unknown Verified 12/31/22 08:59 [From Imitrex] amoxicillin [Amoxicillin] AdvReac Nausea/Vom/ Verified 12/31/22 08:59 Diarrhea Surgical History History of herniorrhaphy No significant past surgical history Social History household members: family Smoking Status: Former smoker Smokeless tobacco user: chewing tobacco how long ago did patient quit smoking: Former cigarette tobacco use, now chew tobacco 2-3 wads daily. alcohol intake: never details: Patient states he currently is not drinking any alcoholic beverages substance use type: does not use ROS ROS ED ROS Narrative Denies. Review of Systems ROS Unobtainable: Denies due to encephalopathy Constitutional Constitutional ED: Denies chills or fever(s) Eyes Eyes: Denies blurry vision ENT ENT ED: Denies ear pain Cardiovascular Cardiovascular: Denies chest pain Respiratory/Chest Respiratory/Chest: Denies cough or dyspnea Gastrointestinal Gastrointestinal: Denies abdominal pain Genitourinary Genitourinary ED: Denies dysuria or hematuria Musculoskeletal Musculoskeletal: Denies arthralgias Integumentary Reports rash; Denies abscess or Abrasions Neurologic Neurologic: Denies headache(s) Psychiatric Psychiatric: Denies anxiety or depression Endocrine Endocrinology: Denies cold intolerance Hematologic/Lymphatic Hematologic/Lymphatic: Reports none Allergic/Immunologic Allergic/Immunologic ED: Denies mouth swelling or tongue swelling EXAM Physical Exam Narrative Exam Narrative: Well-appearing 37-year-old male. Vital signs stable afebrile. He does not look septic toxic is in no distress. Patient is alone. H EENT exam he is about 1 square inch of area on his right forehead at the hairline that appears to have cellulitis. There is no abscess. There is nothing to drain. The scalp otherwise is unremarkable. Gives her reactive light. Neck nontender no lymphadenopathy. Lungs clear. Heart regular rhythm. Abdomen soft nontender. Moving all 4 extremities. Const Vital Signs: 12/31/22 08:55 Temperature 98 F Temperature Source Temporal Pulse Rate 79 Respiratory Rate 16 Blood Pressure 112/70 Blood Pressure Mean 84 Pulse Ox 99 Oxygen Delivery Method Room Air Positive well nourished and well developed; Negative for obese, cachectic, con tractures or unkempt General Appearance ED: well developed and NAD; Negative for unkempt, cachectic, contractures, cyanotic, diaphoretic or pallor Nutritional Appearance: Negative for cachectic or obese HEENT Reports moist mucous membranes; Denies dry mucous membranes HEENT Narrative: Small area about 1 square inch of right forehead cellulitis. No abscess nothing to drain. Negative for trauma or tenderness Mouth ED: No dry mucous membranes Mouth: No dry mucous membranes Eyes PERRL and EOMs intact bilaterally General Eye ED: Negative for pale conjunctiva or scleral icterus Neck no lymphadenopathy, supple and no JVD General: Negative for tenderness Lymph Lymphatic: Negative for other Chest Wall inspection of chest normal and palpation of chest normal Resp normal respiratory effort and clear to auscultation bilaterally Effort and Inspection: Negative for retractions Auscultation: Negative for rales, rhonchi or wheezes Cardio regular rate, regular rhythm, S1 normal heart sound, S2 normal heart sound and no murmurs Rate: Negative for tachycardic GI normal to inspection, nondistended, normoactive bowel sounds, non-tender, non- distended and no masses Inspection: Negative for abdominal distention Auscultation: normoactive bowel sounds Palpation: soft; Negative for tender or guarding Back/Spine no CVA tenderness General Back: Negative for CVA tenderness Cervical Spine: Negative for cervical spine tenderness Thoracic Spine / Upper Back: Negative for thoracic spinal tenderness Lumbar Spine / Lower Back: Negative for lumbar spinal tenderness Extremity normal to inspection General Extremety ED: Negative for edema or tenderness General Extremity: Negative for edema Neuro oriented x3 and CN's II-XII intact bilaterally Sensorium / Orientation: alert; Negative for orientation impaired Motor Exam: strength 5/5 throughout Psych mental status grossly normal Appearance: Negative for unkempt Attitude: No agitated Mood & Affect: Negative for depressed, anxious or tearful Skin No no rashes or lesions noted, no wounds and skin turgor normal Skin Narrative: Small area of right forehead cellulitis. General Skin Exam: elasticity normal; Negative for jaundice or pallor Lesions: No lesion noted Rashes: rashes noted Trauma: Negative for abrasion Wounds: Negative for wounds noted MDM MDM MDM Narrative Medical decision making narrative: Patient has right forehead cellulitis and small. He is already on antibiotic Keflex. Continue that. If it gets worse he needs to be reevaluated if he develops an abscess it needs to be drained he and I discussed all of that. He did does not need any stinger in. Discharge Plan Triage Chief Complaint: Wound ED Provider: Marco Antonio Cintron Dx/Rx/DC Orders Clinical Impression: Cellulitis Instructions: Cellulitis Dc Prescriptions: No Action buspirone 5 MG tablet 10 mg PO TID PRN (Reason: Anxiety) dicyclomine 10 MG capsule 20 mg PO 4X/DAY PRN PRN (Reason: Pain) loratadine [Allergy Relief (loratadine)] 10 MG tablet 10 mg PO DAILY melatonin-pyridoxine HCl (B6) 1 EACH tablet, IR and ER, biphasic 1 ea PO QHS famotidine [Pepcid] 40 MG tablet 40 mg PO QHS quetiapine 25 mg tablet 25 mg PO DAILY Creon 3,000-9,500- 15,000 unit Capsule,Delayed Release(Dr/Ec) 1 cap PO TID Rx Instructions: with meals sucralfate [Carafate] 100 mg/mL suspension 10 ml PO TID PRN (Reason: epigastric pain) Qty: 200 0RF ondansetron 4 mg tablet,disintegrating 4 mg PO Q8H PRN (Reason: nausea and vomiting) Qty: 10 0RF esomeprazole magnesium [Nexium] 20 mg capsule,delayed release(DR/EC) 20 mg PO DAILY Qty: 30 0RF promethazine 25 mg tablet 25 mg PO TID PRN (Reason: nausea and vomiting) Qty: 10 0RF ondansetron [ondansetron] 4 mg tablet,disintegrating 4 mg PO Q8H PRN PRN (Reason: Nausea) Qty: 10 0RF Primary Care Provider: NEVAEH LOPEZ Referrals: NEVAEH LOPEZ [Other] (Follow-up with your doctor if not improving in a week.) Activity Restrictions/Additional Instructions: Take your antibiotic which I think is Keflex as prescribed. Finish it. This is a small soft tissue infection in your right forehead called cellulitis. It should improve. If it is getting worse or you develop an abscess and needs to be reevaluated. Motrin and Tylenol for pain. Disposition Disposition: Home, Self Care
[2022-12-31 09:35] VITALS: RESP 16
== END 2022-12-31 09:39 | disposition home or self-care (01) ==
PROVIDERS: Emergency Provider Emergency Medicine; Visit Provider Emergency Medicine
DX: L03.811 Cellulitis of head [any part, except face] (principal); Z87.891 Personal history of nicotine dependence
CPT/HCPCS: 99282

== ENCOUNTER 2023-01-02 06:35 | Emergency (ER) | payer MEDICARE, MEDICAID, SELFPAY ==
[2023-01-02 06:36] VITALS: BP 141/76; PULSE 76; RESP 17; TEMP 36.8; O2SAT 98; BMI 21.7
--- NOTE | 2023-01-02 07:28 | EDS_ITS ---
HPI History of Present Illness Chief Complaint: Abscess Narrative Narrative: Patient is a 37-year-old male who was seen in the hospital 2 days ago secondary to soft tissue swelling around his right-sided forehead and diagnosed with cellulitis and placed on antibiotics. Patient states the area has now increased in size and he feels it may need popped. He denies any fevers or chills history immunosuppression or headache but with concern that the area will now need drain presents for evaluation [facility] PFS Medical History Anxiety Chronic GERD Pancreatitis Tobacco use Home Medications buspirone 5 mg tablet 10 mg PO TID PRN Anxiety 06/10/17 [History Last Taken Unknown] dicyclomine 10 mg capsule 20 mg PO 4X/DAY PRN PRN Pain 06/10/17 [History Last Taken Unknown] famotidine 40 mg tablet (Pepcid) 40 mg PO QHS 06/10/17 [History Last Taken Unknown] loratadine 10 mg tablet (Allergy Relief (loratadine)) 10 mg PO DAILY 06/10/17 [History Last Taken Unknown] melatonin ER 10 mg-pyridoxine HCl (B6) 10 mg tab, immed-extend release 1 ea PO QHS 06/10/17 [History Last Taken Unknown] quetiapine 25 mg tablet 25 mg PO DAILY 06/28/21 [History Last Taken Unknown] lipase 3,000-protease 9,500-amylase 15,000 unit capsule, delayed rel (Creon) 1 cap PO TID Check with primary doctor 06/29/21 [History Last Taken Unknown] ondansetron 4 mg disintegrating tablet 4 mg PO Q8H PRN nausea and vomiting #10 tabs 08/20/22 [Rx Last Taken Unknown] sucralfate 100 mg/mL oral suspension (Carafate) 10 ml PO TID PRN epigastric pain #200 mL 08/20/22 [Rx Last Taken Unknown] esomeprazole magnesium 20 mg capsule,delayed release (Nexium) 20 mg PO DAILY #30 caps 09/03/22 [Rx Last Taken Unknown] promethazine 25 mg tablet 25 mg PO TID PRN nausea and vomiting #10 tabs 09/03/22 [Rx Last Taken Unknown] ondansetron 4 mg disintegrating tablet 4 mg PO Q8H PRN PRN Nausea #10 tabs 12/01/22 [Rx Last Taken Unknown] doxycycline monohydrate 100 mg capsule 100 mg PO BID #20 CAPSULES 01/03/23 [Rx Last Taken Unknown] Allergy/AdvReac Type Severity Reaction Status Date / Time Penicillins Allergy Unknown Verified 01/02/23 21:36 sumatriptan [From Imitrex] Allergy Unknown Verified 01/02/23 21:36 sumatriptan succinate Allergy Unknown Verified 01/02/23 21:36 [From Imitrex] amoxicillin [Amoxicillin] AdvReac Nausea/Vom/ Verified 01/02/23 21:36 Diarrhea Surgical History History of herniorrhaphy No significant past surgical history Social History household members: family Smoking Status: Former smoker Smokeless tobacco user: chewing tobacco how long ago did patient quit smoking: Former cigarette tobacco use, now chew tobacco 2-3 wads daily. alcohol intake: never details: Patient states he currently is not drinking any alcoholic beverages substance use type: does not use ROS ROS ED Constitutional Constitutional ED: Denies chills or fever(s) Eyes Eyes: Denies change in vision ENT ENT ED: Denies sore throat Cardiovascular Cardiovascular: Denies chest pain Respiratory/Chest Respiratory/Chest: Denies cough or dyspnea Gastrointestinal Gastrointestinal: Denies abdominal pain, diarrhea, nausea or vomiting Genitourinary Genitourinary ED: Denies dysuria Musculoskeletal Musculoskeletal: Denies myalgias Integumentary Reports abscess Neurologic Neurologic: Denies headache(s) Hematologic/Lymphatic Hematologic/Lymphatic: Denies easy bleeding or easy bruising EXAM Physical Exam Const Vital Signs: 01/02/23 06:36 Temperature 98.2 F Temperature Source Temporal Pulse Rate 76 Respiratory Rate 17 Blood Pressure 141/76 H Blood Pressure Mean 97 Pulse Ox 98 Oxygen Delivery Method Room Air Positive well nourished and well developed General Appearance ED: well developed HEENT HEENT Narrative: Along the right upper portion of the patient's forehead near the hairline there is a 1 x 1.5 area of erythema and fluctuance consistent with abscess formation. No active drainage or lymphangitic streaking. Eyes PERRL and EOMs intact bilaterally Neck supple Neck Narrative: No nuchal rigidity or meningeal signs present Resp normal respiratory effort and clear to auscultation bilaterally Cardio regular rate and regular rhythm Extremity normal to inspection Neuro oriented x3 and CN's II-XII intact bilaterally Sensorium / Orientation: alert Psych Psych Narrative: Patient has a nervous/anxious affect Skin Skin Narrative: Lesion to the right upper forehead as documented above consistent with abscess MDM MDM MDM Narrative Medical decision making narrative: Patient presented to the ER afebrile without signs of systemic infection. Therefore I felt no need for imaging or laboratory study. Differential d iagnosis includes cellulitis versus abscess versus infected sebaceous cyst. The patient had the area cleaned and then incised and drained as documented below. He is currently already prescribed antibiotics so there is no need to provide further antibiotic. As he has no signs of systemic infection there is no need for further work-up and he is otherwise safe for discharge Patient had the area cleaned with chlorhexidine. It was anesthetized with 4 mL of 2% lidocaine with epinephrine local fashion. An 18-gauge needle was then used to decompress the soft tissue. Manual pressure was applied and there was return of blood and purulent material. Patient tolerated procedure well without complication History & Record Review Discussion w/independent historian: Patient Discharge Plan Triage Chief Complaint: Abscess ED Provider: Matt Whatley Dx/Rx/DC Orders Clinical Impression: Abscess Instructions: Abscess Drainage Prescriptions: No Action buspirone 5 MG tablet 10 mg PO TID PRN (Reason: Anxiety) dicyclomine 10 MG capsule 20 mg PO 4X/DAY PRN PRN (Reason: Pain) loratadine [Allergy Relief (loratadine)] 10 MG tablet 10 mg PO DAILY melatonin-pyridoxine HCl (B6) 1 EACH tablet, IR and ER, biphasic 1 ea PO QHS famotidine [Pepcid] 40 MG tablet 40 mg PO QHS quetiapine 25 mg tablet 25 mg PO DAILY Creon 3,000-9,500- 15,000 unit Capsule,Delayed Release(Dr/Ec) 1 cap PO TID Rx Instructions: with meals sucralfate [Carafate] 100 mg/mL suspension 10 ml PO TID PRN (Reason: epigastric pain) Qty: 200 0RF ondansetron 4 mg tablet,disintegrating 4 mg PO Q8H PRN (Reason: nausea and vomiting) Qty: 10 0RF esomeprazole magnesium [Nexium] 20 mg capsule,delayed release(DR/EC) 20 mg PO DAILY Qty: 30 0RF promethazine 25 mg tablet 25 mg PO TID PRN (Reason: nausea and vomiting) Qty: 10 0RF ondansetron [ondansetron] 4 mg tablet,disintegrating 4 mg PO Q8H PRN PRN (Reason: Nausea) Qty: 10 0RF doxycycline monohydrate 100 mg capsule 100 mg PO BID Qty: 20 0RF Primary Care Provider: NEVAEH LOPEZ Referrals: NEVAEH LOPEZ [Other] Activity Restrictions/Additional Instructions: Please continue your antibiotic that was given to you at your last visit and wash the area with soap and water. The remaining redness and swelling will resolve over the next 2 to 3 days and then the scab will form. Disposition Disposition: Home, Self Care Discharge Date/Time: 01/02/23 07:38
[2023-01-02] MEDS: Lidocaine 2% /Epi 1:100 (20ml) 20 ML VIAL INFILT (07:37)
== END 2023-01-02 07:38 | disposition home or self-care (01) ==
PROVIDERS: Emergency Provider Emergency Medicine; Visit Provider Emergency Medicine
DX: L02.01 Cutaneous abscess of face (principal); Z87.891 Personal history of nicotine dependence
CPT/HCPCS: 99282

== ENCOUNTER 2023-01-02 21:02 | Emergency (ER) | payer MEDICARE, MEDICAID, SELFPAY ==
[2023-01-02 21:05] VITALS: BP 139/94; PULSE 87; RESP 18; TEMP 36.9; BMI 21.4
[2023-01-02 21:09] VITALS: BP 139/94; PULSE 87; RESP 18; TEMP 36.9
--- NOTE | 2023-01-02 21:40 | ED.RN ---
THIS RN EXAMINED PTS MOUTH. PT DENIES ANY TROUBLE BREATHING, ANY TROUBLE SWALLOWING, ANY TROUBLE TALKING. NO TONGUE EDEMA NOTED BY THIS RN. NO MOUTH EDEMA NOTED BY THIS RN. BILATERAL EYE EDEMA AND FOREHEAD EDEMA NOTED.
--- NOTE | 2023-01-02 22:31 | ED.RN ---
PT REFUSED IV. DR. MCMAHAN AWARE. PT ALLOWED THIS RN TO GET LABS VIA BLOOD DRAW. DR. MCMAHAN VERBAL ORDER TO CHANGE BENADRYL TO PO FORM.
[2023-01-02 22:36] LABS: Absolute Lymphocyte Count 1.44 X10^3/uL (0.83-4.51); Absolute Neutrophil Count 6.5 X10^3/uL (2.0-7.7); Basophil# 0.03 X10^3/uL; Basophil% 0.3 % (0-1); Eosinophil# 0.09 X10^3/uL; Hematocrit 39.6 % (40-54); Lymphocyte # 1.44 X10^3/ul (0.83-4.51); Mean Corp Hgb Conc 35.4 g/dL (32-36); Mean Corpuscular Hgb 32.5 pg (27.0-32.0); Mean Corpuscular Volume 91.9 fL (80-94); Mean Platelet Vol. 9.8 fl (6.2-12.0); Monocyte# 0.95 X10^3/uL; Monocyte% 10.5 % (0-10); NRBC Flagged by Analyzer 0 % (0-5); Neutrophil # 6.47 X10^3/uL (2.7-7.7); Neutrophil % 71.9 % (47-70); Platelet Count 147 K/mm3 (150-450); RBC Distribution Width CV 11.9 % (11.6-14.6); RBC Distribution Width SD 40.3 fl (35.1-43.9); Red Blood Count 4.31 M/mm3 (4.6-6.2)
[2023-01-02] MEDS: DiphenhydrAMINE 25 MG Capsule PO (22:38)
[2023-01-02 23:17] LABS: Anion Gap 4 (5-15); BUN 6 mg/dL (7-18); Calcium,Total 8.8 mg/dL (8.5-10.1); Chloride 108 mmol/L (98-107); EST Glomerular Filtration Rate 90 mL/min (>60); Est Glom Filt Rate - Afr Amer 109 mL/min (>60); Estimated Creatinine Clearance 93.27 ml/min; Glucose 89 mg/dL (74-106); Potassium 3.2 mmol/L (3.5-5.1); Sodium Level 142 mmol/L (136-145)
--- NOTE | 2023-01-03 00:18 | EX.ED.DYSGE1 ---
HPI History of Present Illness Chief Complaint: Allergic Reaction Informant: patient Onset/Context/Timing Onset: Today Context: Gradual Onset Timing: Continuous Quality: Swelling Location: Bilateral periorbital areas and forehead. Worsened by: Nothing Relieved by: Nothing Narrative Narrative: Patient presents with possible allergic reaction that began tonight. Patient was seen here yesterday and had an abscess drained in his forehead. Patient states that today his periorbital areas are more swollen. Patient was started on Bactrim after he had the abscess drained yesterday. Patient denies any difficulty breathing or difficulty swallowing. Patient denies any other areas of hives. Patient denies any fevers or chills. Patient denies any nausea or vomiting. PFSH PFSH Medical History Anxiety Chronic GERD Pancreatitis Tobacco use Home Medications buspirone 5 mg tablet 10 mg PO TID PRN Anxiety 06/10/17 [History Last Taken Unknown] dicyclomine 10 mg capsule 20 mg PO 4X/DAY PRN PRN Pain 06/10/17 [History Last Taken Unknown] famotidine 40 mg tablet (Pepcid) 40 mg PO QHS 06/10/17 [History Last Taken Unknown] loratadine 10 mg tablet (Allergy Relief (loratadine)) 10 mg PO DAILY 06/10/17 [History Last Taken Unknown] melatonin ER 10 mg-pyridoxine HCl (B6) 10 mg tab, immed-extend release 1 ea PO QHS 06/10/17 [History Last Taken Unknown] quetiapine 25 mg tablet 25 mg PO DAILY 06/28/21 [History Last Taken Unknown] lipase 3,000-protease 9,500-amylase 15,000 unit capsule, delayed rel (Creon) 1 cap PO TID Check with primary doctor 06/29/21 [History Last Taken Unknown] ondansetron 4 mg disintegrating tablet 4 mg PO Q8H PRN nausea and vomiting #10 tabs 08/20/22 [Rx Last Taken Unknown] sucralfate 100 mg/mL oral suspension (Carafate) 10 ml PO TID PRN epigastric pain #200 mL 08/20/22 [Rx Last Taken Unknown] esomeprazole magnesium 20 mg capsule,delayed release (Nexium) 20 mg PO DAILY #30 caps 09/03/22 [Rx Last Taken Unknown] promethazine 25 mg tablet 25 mg PO TID PRN nausea and vomiting #10 tabs 09/03/22 [Rx Last Taken Unknown] ondansetron 4 mg disintegrating tablet 4 mg PO Q8H PRN PRN Nausea #10 tabs 12/01/22 [Rx Last Taken Unknown] doxycycline monohydrate 100 mg capsule 100 mg PO BID #20 CAPSULES 01/03/23 [Rx Last Taken Unknown] Allergy/AdvReac Type Severity Reaction Status Date / Time Penicillins Allergy Unknown Verified 01/02/23 21:36 sumatriptan [From Imitrex] Allergy Unknown Verified 01/02/23 21:36 sumatriptan succinate Allergy Unknown Verified 01/02/23 21:36 [From Imitrex] amoxicillin [Amoxicillin] AdvReac Nausea/Vom/ Verified 01/02/23 21:36 Diarrhea Surgical History History of herniorrhaphy No significant past surgical history Social History household members: family Smoking Status: Former smoker Smokeless tobacco user: chewing tobacco how long ago did patient quit smoking: Former cigarette tobacco use, now chew tobacco 2-3 wads daily. alcohol intake: never details: Patient states he currently is not drinking any alcoholic beverages substance use type: does not use ROS ROS ED Constitutional Constitutional ED: Denies chills or fever(s) Eyes Eyes: Denies blurry vision or change in vision ENT ENT ED: Denies rhinorrhea or sore throat Cardiovascular Cardiovascular: Denies chest pain or palpitations Respiratory/Chest Respiratory/Chest: Denies cough or dyspnea Gastrointestinal Gastrointestinal: Denies nausea or vomiting Genitourinary Genitourinary ED: Denies dysuria or hematuria Musculoskeletal Musculoskeletal: Reports back pain; Denies neck pain Integumentary Reports abscess and rash Neurologic Neurologic: Denies headache(s) or weakness Allergic/Immunologic Allergic/Immunologic ED: Denies mouth swelling, tongue swelling or urticaria EXAM Physical Exam Const Vital Signs: 01/02/23 21:05 01/02/23 21:09 Temperature 98.4 F 98.4 F Temperature Source Temporal Temporal Pulse Rate 87 87 Respiratory Rate 18 18 Blood Pressure 139/94 H 139/94 H Blood Pressure Mean 109 109 Positive well nourished and well developed General Appearance ED: well developed and NAD HEENT Reports moist mucous membranes HEENT Narrative: Oropharynx is clear. Airway is patent. There is bilateral periorbital edema. There is a healing abscess noted over the right frontal area near the hairline. There is no active discharge or drainage. There is no fluctuance noted. There is no erythema or warmth. Neck is supple. Trachea is midline. There is no JVD or lymphadenopathy. Eyes PERRL and EOMs intact bilaterally Resp normal respiratory effort and clear to auscultation bilaterally Cardio regular rate and regular rhythm GI normal to inspection, nondistended, normoactive bowel sounds, non-tender and non-distended Palpation: soft Neuro oriented x3, CN's II-XII intact bilaterally and no sensory deficits noted Sensorium / Orientation: alert Motor Exam: strength 5/5 throughout Psych mental status grossly normal MDM MDM MDM Narrative Medical decision making narrative: Differential diagnosis includes allergic reaction, edema from drained abscess, cellulitis, and soft tissue swelling. CBC will be obtained to assess for leukocytosis and anemia. Basic metabolic profile will be obtained to assess for electrolyte abnormality and renal function. Lab Data Lab results narrative: CBC was reviewed and was within normal limits. Basic metabolic profile was reviewed. There is a mild hypokalemia of 3.2. The remainder was within normal limits. Labs: Laboratory Results - last 24 hr 01/02/23 01/02/23 22:28 22:28 WBC 9.0 RBC 4.31 L Hgb 14.0 Hct 39.6 L MCV 91.9 MCH 32.5 H MCHC 35.4 RDW Std Deviation 40.3 RDW Coeff of Iggy 11.9 Plt Count 147 L MPV 9.8 Immature Gran % (Auto) 0.300 Neut % (Auto) 71.9 H Lymph % (Auto) 16.0 L Storey % (Auto) 10.5 H Eos % (Auto) 1.0 Baso % (Auto) 0.3 Absolute Neuts (auto) 6.5 Absolute Lymphs (auto) 1.44 Nucleated RBC % 0 Sodium 142 Potassium 3.2 L Chloride 108 H Carbon Dioxide 30.0 Anion Gap 4 L BUN 6 L Creatinine 1.00 Estim Creat Clear Calc 93.27 Est GFR (MDRD) Af Amer 109 Est GFR (MDRD) Non-Af 90 BUN/Creatinine Ratio 6.0 L Glucose 89 Calcium 8.8 Treatment and Re-Evaluation :: Patient was advised of his findings. Patient was instructed to stop taking the Bactrim in case this would be an allergic reaction, since he has no urticaria however, I do not feel this is an acute allergic reaction. Patient was given a prescription for doxycycline instead. Patient was instructed to follow-up with his primary care physician in 5 to 7 days. Patient was instructed return if worse in any way. Patient understood and was agreeable with plan. All questions were answered. Discharge Plan Triage Chief Complaint: Allergic Reaction ED Provider: Nolan Brady Dx/Rx/DC Orders Clinical Impression: Cellulitis, Abscess Instructions: ED Cellulitis, Facial Prescriptions: New doxycycline monohydrate 100 mg capsule 100 mg PO BID Qty: 20 0RF No Action buspirone 5 MG tablet 10 mg PO TID PRN (Reason: Anxiety) dicyclomine 10 MG capsule 20 mg PO 4X/DAY PRN PRN (Reason: Pain) loratadine [Allergy Relief (loratadine)] 10 MG tablet 10 mg PO DAILY melatonin-pyridoxine HCl (B6) 1 EACH tablet, IR and ER, biphasic 1 ea PO QHS famotidine [Pepcid] 40 MG tablet 40 mg PO QHS quetiapine 25 mg tablet 25 mg PO DAILY Creon 3,000-9,500- 15,000 unit Capsule,Delayed Release(Dr/Ec) 1 cap PO TID Rx Instructions: with meals sucralfate [Carafate] 100 mg/mL suspension 10 ml PO TID PRN (Reason: epigastric pain) Qty: 200 0RF ondansetron 4 mg tablet,disintegrating 4 mg PO Q8H PRN (Reason: nausea and vomiting) Qty: 10 0RF esomeprazole magnesium [Nexium] 20 mg capsule,delayed release(DR/EC) 20 mg PO DAILY Qty: 30 0RF promethazine 25 mg tablet 25 mg PO TID PRN (Reason: nausea and vomiting) Qty: 10 0RF ondansetron [ondansetron] 4 mg tablet,disintegrating 4 mg PO Q8H PRN PRN (Reason: Nausea) Qty: 10 0RF Primary Care Provider: Care Physician,No Primary Referrals: Elle Redmond [Non-Staff] - 5-7 Days Care Physician,No Primary [Primary Care Provider] - Disposition Disposition: Home, Self Care
== END 2023-01-03 01:09 | disposition home or self-care (01) ==
PROVIDERS: Emergency Provider Emergency Medicine; Visit Provider Emergency Medicine
DX: L02.01 Cutaneous abscess of face (principal); L03.90 Cellulitis, unspecified; Z87.891 Personal history of nicotine dependence
CPT/HCPCS: 36415; 80048; 85025; 99282

== ENCOUNTER 2023-01-13 06:11 | Emergency (ER) | payer MEDICARE, MEDICAID, SELFPAY ==
[2023-01-13 06:11] VITALS: BP 132/74; PULSE 74; RESP 15; TEMP 36.9; O2SAT 98; BMI 21.9
--- NOTE | 2023-01-13 06:40 | EX.ED.DYSGE1 ---
HPI History of Present Illness Chief Complaint: Sore Throat Narrative Narrative: 37-year-old male presenting with sore throat. He states is difficult to swallow. He does not have any difficulty talking, breathing. He states has been ongoing for about 6 days. He states he has a primary care physician in [place] but cannot get there because he does not have a ride. He has been here several times for similar symptoms. He was checked for strep and this was negative. Patient was treated with dexamethasone which helped his symptoms. Patient denies any fever, chills, sweats, nausea, vomiting. PFSH PFSH Medical History Anxiety Chronic GERD Pancreatitis Tobacco use Home Medications buspirone 5 mg tablet 10 mg PO TID PRN Anxiety 06/10/17 [History Last Taken Unknown] dicyclomine 10 mg capsule 20 mg PO 4X/DAY PRN PRN Pain 06/10/17 [History Last Taken Unknown] famotidine 40 mg tablet (Pepcid) 40 mg PO QHS 06/10/17 [History Last Taken Unknown] loratadine 10 mg tablet (Allergy Relief (loratadine)) 10 mg PO DAILY 06/10/17 [History Last Taken Unknown] melatonin ER 10 mg-pyridoxine HCl (B6) 10 mg tab, immed-extend release 1 ea PO QHS 06/10/17 [History Last Taken Unknown] quetiapine 25 mg tablet 25 mg PO DAILY 06/28/21 [History Last Taken Unknown] lipase 3,000-protease 9,500-amylase 15,000 unit capsule, delayed rel (Creon) 1 cap PO TID Check with primary doctor 06/29/21 [History Last Taken Unknown] ondansetron 4 mg disintegrating tablet 4 mg PO Q8H PRN nausea and vomiting #10 tabs 08/20/22 [Rx Last Taken Unknown] sucralfate 100 mg/mL oral suspension (Carafate) 10 ml PO TID PRN epigastric pain #200 mL 08/20/22 [Rx Last Taken Unknown] esomeprazole magnesium 20 mg capsule,delayed release (Nexium) 20 mg PO DAILY #30 caps 09/03/22 [Rx Last Taken Unknown] promethazine 25 mg tablet 25 mg PO TID PRN nausea and vomiting #10 tabs 09/03/22 [Rx Last Taken Unknown] ondansetron 4 mg disintegrating tablet 4 mg PO Q8H PRN PRN Nausea #10 tabs 12/01/22 [Rx Last Taken Unknown] doxycycline monohydrate 100 mg capsule 100 mg PO BID #20 CAPSULES 01/03/23 [Rx Last Taken Unknown] Allergy/AdvReac Type Severity Reaction Status Date / Time Penicillins Allergy Unknown Verified 01/02/23 21:36 sumatriptan [From Imitrex] Allergy Unknown Verified 01/02/23 21:36 sumatriptan succinate Allergy Unknown Verified 01/02/23 21:36 [From Imitrex] amoxicillin [Amoxicillin] AdvReac Nausea/Vom/ Verified 01/02/23 21:36 Diarrhea Surgical History History of herniorrhaphy No significant past surgical history Social History household members: family Smoking Status: Former smoker Smokeless tobacco user: chewing tobacco how long ago did patient quit smoking: Former cigarette tobacco use, now chew tobacco 2-3 wads daily. alcohol intake: never details: Patient states he currently is not drinking any alcoholic beverages substance use type: does not use ROS ROS ED Constitutional Constitutional ED: Denies chills or fever(s) Eyes Eyes: Denies change in vision or diplopia ENT ENT ED: Reports sore throat; Denies rhinorrhea Cardiovascular Cardiovascular: Denies chest pain or palpitations Respiratory/Chest Respiratory/Chest: Denies cough or dyspnea Gastrointestinal Gastrointestinal: Denies abdominal pain or constipation Genitourinary Genitourinary ED: Denies dysuria or hematuria Musculoskeletal Musculoskeletal: Denies arthralgias or back pain Integumentary Denies abscess or Abrasions Neurologic Neurologic: Denies headache(s) EXAM Physical Exam Const Vital Signs: 01/13/23 06:11 01/13/23 06:21 Temperature 98.5 F Temperature Source Temporal Pulse Rate 74 Respiratory Rate 15 Respiratory Effort Normal Blood Pressure 132/74 H Blood Pressure Mean 93 Pulse Ox 98 Oxygen Delivery Method Room Air Positive well nourished General Appearance ED: NAD HEENT Reports moist mucous membranes Face and Sinus: normal facial exam Nose: external nose normal and nares normal Mouth ED: Yes oral and palatal mucosa normal, Yes lips normal, Yes tongue normal, Yes salivary gland normal, Yes moist mucous membranes normal, No dysphonia and No muffled voice Mouth: oral and palatal mucosa normal, lips normal, tongue normal, salivary gland normal, No dysphonia and No muffled voice Throat: posterior oropharynx normal Eyes PERRL Neck no lymphadenopathy and supple Chest Wall inspection of chest normal Resp normal respiratory effort and clear to auscultation bilaterally Cardio regular rate and regular rhythm Neuro oriented x3 and CN's II-XII intact bilaterally Sensorium / Orientation: alert Psych mental status grossly normal Skin no rashes or lesions noted MDM MDM MDM Narrative Medical decision making narrative: 37-year-old male presenting with sore throat. He is convinced that his throat is swollen and that he has swollen tonsils and lymph nodes. His HEENT exam is completely normal. He is not having any trouble talking, swallowing, breathing. There is no posterior pharyngeal erythema or exudates. No sublingual edema or submandibular edema. No lymphadenopathy. His vital signs are stable he is afebrile. He states that he wants something to help with the swelling. He states he received Decadron last time. Amenable to giving this to him again but I did prevocational/rehabilitation counselor him that I do not find any objective findings of swelling. I recommend that he follow-up with ENT and gave him a referral. Return precautions discussed. Impression: 1. Sore throat Discharge Plan Triage Chief Complaint: Sore Throat ED Provider: Wally Richards Dx/Rx/DC Orders Instructions: Self-Care for Sore Throats Prescriptions: No Action buspirone 5 MG tablet 10 mg PO TID PRN (Reason: Anxiety) dicyclomine 10 MG capsule 20 mg PO 4X/DAY PRN PRN (Reason: Pain) loratadine [Allergy Relief (loratadine)] 10 MG tablet 10 mg PO DAILY melatonin-pyridoxine HCl (B6) 1 EACH tablet, IR and ER, biphasic 1 ea PO QHS famotidine [Pepcid] 40 MG tablet 40 mg PO QHS quetiapine 25 mg tablet 25 mg PO DAILY Creon 3,000-9,500- 15,000 unit Capsule,Delayed Release(Dr/Ec) 1 cap PO TID Rx Instructions: with meals sucralfate [Carafate] 100 mg/mL suspension 10 ml PO TID PRN (Reason: epigastric pain) Qty: 200 0RF ondansetron 4 mg tablet,disintegrating 4 mg PO Q8H PRN (Reason: nausea and vomiting) Qty: 10 0RF esomeprazole magnesium [Nexium] 20 mg capsule,delayed release(DR/EC) 20 mg PO DAILY Qty: 30 0RF promethazine 25 mg tablet 25 mg PO TID PRN (Reason: nausea and vomiting) Qty: 10 0RF ondansetron [ondansetron] 4 mg tablet,disintegrating 4 mg PO Q8H PRN PRN (Reason: Nausea) Qty: 10 0RF doxycycline monohydrate 100 mg capsule 100 mg PO BID Qty: 20 0RF Primary Care Provider: Care Physician,No Primary Referrals: Alex Hernandez MD [Med Staff - Active Staff] - 3-5 Days Care Physician,No Primary [Primary Care Provider] - Disposition Disposition: Home, Self Care
[2023-01-13] MEDS: dexAMETHasone 10 MG/ML Vial PO.IVFORM (06:41)
== END 2023-01-13 06:48 | disposition home or self-care (01) ==
LOC: ED 06:45
PROVIDERS: Emergency Provider Student in an Organized Health Care Education/Training Program; Referring Provider Student in an Organized Health Care Education/Training Program; Visit Provider Student in an Organized Health Care Education/Training Program
DX: J02.9 Acute pharyngitis, unspecified (principal); Z87.891 Personal history of nicotine dependence
CPT/HCPCS: 99283

== ENCOUNTER 2023-02-03 06:10 | Emergency (ER) | payer MEDICARE, MEDICAID, SELFPAY ==
[2023-02-03 06:11] VITALS: BP 125/84; PULSE 86; RESP 15; TEMP 37.4; O2SAT 98
--- NOTE | 2023-02-03 06:36 | EDS_ITS ---
HPI History of Present Illness Chief Complaint: Nausea/Vomiting Informant: patient Narrative Narrative: Patient states since yesterday he has had a cold, and he is concerned that he is eating activia yogurt and it is not helping. Furthermore, the yogurt has made him nauseated and feeling like he has an upset stomach. Asking more details about why he is eating yogurt to help his cold, he states because of the active antibiotics in it. PFSH PFSH Medical History Anxiety Chronic GERD Pancreatitis Tobacco use Home Medications buspirone 5 mg tablet 10 mg PO TID PRN Anxiety 06/10/17 [History Last Taken Unknown] dicyclomine 10 mg capsule 20 mg PO 4X/DAY PRN PRN Pain 06/10/17 [History Last Taken Unknown] famotidine 40 mg tablet (Pepcid) 40 mg PO QHS 06/10/17 [History Last Taken Unknown] loratadine 10 mg tablet (Allergy Relief (loratadine)) 10 mg PO DAILY 06/10/17 [History Last Taken Unknown] melatonin ER 10 mg-pyridoxine HCl (B6) 10 mg tab, immed-extend release 1 ea PO QHS 06/10/17 [History Last Taken Unknown] quetiapine 25 mg tablet 25 mg PO DAILY 06/28/21 [History Last Taken Unknown] lipase 3,000-protease 9,500-amylase 15,000 unit capsule, delayed rel (Creon) 1 cap PO TID Check with primary doctor 06/29/21 [History Last Taken Unknown] ondansetron 4 mg disintegrating tablet 4 mg PO Q8H PRN nausea and vomiting #10 tabs 08/20/22 [Rx Last Taken Unknown] sucralfate 100 mg/mL oral suspension (Carafate) 10 ml PO TID PRN epigastric pain #200 mL 08/20/22 [Rx Last Taken Unknown] esomeprazole magnesium 20 mg capsule,delayed release (Nexium) 20 mg PO DAILY #30 caps 09/03/22 [Rx Last Taken Unknown] promethazine 25 mg tablet 25 mg PO TID PRN nausea and vomiting #10 tabs 09/03/22 [Rx Last Taken Unknown] ondansetron 4 mg disintegrating tablet 4 mg PO Q8H PRN PRN Nausea #10 tabs 12/01/22 [Rx Last Taken Unknown] doxycycline monohydrate 100 mg capsule 100 mg PO BID #20 CAPSULES 01/03/23 [Rx Last Taken Unknown] Allergy/AdvReac Type Severity Reaction Status Date / Time Penicillins Allergy Unknown Verified 01/02/23 21:36 sumatriptan [From Imitrex] Allergy Unknown Verified 01/02/23 21:36 sumatriptan succinate Allergy Unknown Verified 01/02/23 21:36 [From Imitrex] amoxicillin [Amoxicillin] AdvReac Nausea/Vom/ Verified 01/02/23 21:36 Diarrhea Surgical History History of herniorrhaphy No significant past surgical history Social History household members: family Smoking Status: Former smoker Smokeless tobacco user: chewing tobacco how long ago did patient quit smoking: Former cigarette tobacco use, now chew tobacco 2-3 wads daily. alcohol intake: never details: Patient states he currently is not drinking any alcoholic beverages substance use type: does not use ROS ROS ED Constitutional Constitutional ED: Denies chills or fever(s) Eyes Eyes: Denies change in vision or diplopia ENT ENT ED: Reports nasal congestion and rhinorrhea; Denies ear pain, headache(s), loss taste/smell or sore throat Cardiovascular Cardiovascular: Denies chest pain or palpitations Respiratory/Chest Respiratory/Chest: Reports cough; Denies dyspnea Gastrointestinal Gastrointestinal: Reports nausea; Denies abdominal pain, diarrhea or vomiting Genitourinary Genitourinary ED: Denies dysuria or hematuria Musculoskeletal Musculoskeletal: Denies back pain or neck pain Integumentary Denies abscess or rash Neurologic Neurologic: Denies headache(s), paresthesias or weakness Psychiatric Psychiatric: Denies anxiety or suicidal thoughts EXAM Physical Exam Const Vital Signs: 02/03/23 06:11 Temperature 99.4 F H Temperature Source Temporal Pulse Rate 86 Respiratory Rate 15 Blood Pressure 125/84 H Blood Pressure Mean 97 Pulse Ox 98 Oxygen Delivery Method Room Air Positive well nourished and well developed General Appearance ED: well developed and NAD HEENT Reports TM's clear and moist mucous membranes normocephalic and atraumatic Tympanic Membrane ED: Yes TM's clear Eyes PERRL and EOMs intact bilaterally Neck full ROM, no lymphadenopathy and supple Resp normal respiratory effort and clear to auscultation bilaterally Cardio regular rate, regular rhythm and no murmurs GI non-tender and non-distended Auscultation: normoactive bowel sounds Palpation: soft Back/Spine no CVA tenderness General Back: other FROM Extremity normal to inspection General Extremety ED: Negative for edema, pulses abnormal or tenderness General Extremity: Negative for edema or pulses abnormal Neuro oriented x3, CN's II-XII intact bilaterally and no sensory deficits noted Sensorium / Orientation: awake and alert Motor Exam: strength 5/5 throughout Skin no rashes or lesions noted and no wounds MDM MDM MDM Narrative Medical decision making narrative: Patient has a history of anxiety and presents here often for reflux which she admits he is feeling now and asking for a GI cocktail and Zofran which was given to him. I reassured him, he either has seasonal allergies for which she takes loratadine, or a cold. It would be safe for him to take loratadine and o [id number] cold medications as needed. He perseverates on the symptoms and what exactly will make me better sooner. He is looking at a webpage on his phone that advises taking Tylenol, drinking plenty fluids, and getting rest. I think that is a good idea. He can continue to eating yogurt if he wants to but I told him that it would not help his cold, nor would it hurt it. Discharge Plan Triage Chief Complaint: Nausea/Vomiting ED Provider: Vinay Franz Dx/Rx/DC Orders Clinical Impression: Viral URI with cough Instructions: ED URI, Viral, No Abx (Adult) Prescriptions: No Action buspirone 5 MG tablet 10 mg PO TID PRN (Reason: Anxiety) dicyclomine 10 MG capsule 20 mg PO 4X/DAY PRN PRN (Reason: Pain) loratadine [Allergy Relief (loratadine)] 10 MG tablet 10 mg PO DAILY melatonin-pyridoxine HCl (B6) 1 EACH tablet, IR and ER, biphasic 1 ea PO QHS famotidine [Pepcid] 40 MG tablet 40 mg PO QHS quetiapine 25 mg tablet 25 mg PO DAILY Creon 3,000-9,500- 15,000 unit Capsule,Delayed Release(Dr/Ec) 1 cap PO TID Rx Instructions: with meals sucralfate [Carafate] 100 mg/mL suspension 10 ml PO TID PRN (Reason: epigastric pain) Qty: 200 0RF ondansetron 4 mg tablet,disintegrating 4 mg PO Q8H PRN (Reason: nausea and vomiting) Qty: 10 0RF esomeprazole magnesium [Nexium] 20 mg capsule,delayed release(DR/EC) 20 mg PO DAILY Qty: 30 0RF promethazine 25 mg tablet 25 mg PO TID PRN (Reason: nausea and vomiting) Qty: 10 0RF ondansetron [ondansetron] 4 mg tablet,disintegrating 4 mg PO Q8H PRN PRN (Reason: Nausea) Qty: 10 0RF doxycycline monohydrate 100 mg capsule 100 mg PO BID Qty: 20 0RF Primary Care Provider: Care Physician,No Primary Referrals: Doctor,Your [Non-Staff] - Disposition Disposition: Home, Self Care
[2023-02-03] MEDS: Mag Hydrox/Al Hydrox/Simeth 30 ML UDC PO (06:38)
[2023-02-03] MEDS: Ondansetron ODT 4 MG Tablet 8 MG PO (06:38)
[2023-02-03 06:40] VITALS: BP 108/77; PULSE 62; RESP 15; O2SAT 97
== END 2023-02-03 06:43 | disposition home or self-care (01) ==
LOC: ED 06:38
PROVIDERS: Emergency Provider Emergency Medicine; Visit Provider Emergency Medicine
DX: J06.9 Acute upper respiratory infection, unspecified (principal); R05.9 Cough, unspecified; Z87.891 Personal history of nicotine dependence
CPT/HCPCS: 99283

== ENCOUNTER 2023-02-28 19:48 | Emergency (ER) | payer MEDICARE, MEDICAID, SELFPAY ==
[2023-02-28 19:52] VITALS: BP 128/94; PULSE 92; RESP 16; TEMP 36.6; O2SAT 98; BMI 21.6
--- NOTE | 2023-02-28 19:56 | EX.ED.DYSGE1 ---
HPI History of Present Illness Chief Complaint: Nausea/Vomiting Detail of Chief Complaint: Nausea and vomiting and abdominal pain Informant: patient Narrative Narrative: Patient presents with 3-day history of nausea and vomiting and intermittent left lower quadrant abdominal pain. He denies fever. Patient states he has vomited twice today. He describes a sharp stabbing pain into his left side. He had 1 episode of diarrhea. Denies fever. He denies sick contacts. He had some episodes of feeling lightheaded. Denies recent travel. Patient does have remote history of pancreatitis. He does not currently drink alcohol. He denies illicit drug use. [facility] Medical History Anxiety Chronic GERD Pancreatitis Tobacco use Home Medications buspirone 5 mg tablet 10 mg PO TID PRN Anxiety 06/10/17 [History Last Taken Unknown] dicyclomine 10 mg capsule 20 mg PO 4X/DAY PRN PRN Pain 06/10/17 [History Last Taken Unknown] famotidine 40 mg tablet (Pepcid) 40 mg PO QHS 06/10/17 [History Last Taken Unknown] loratadine 10 mg tablet (Allergy Relief (loratadine)) 10 mg PO DAILY 06/10/17 [History Last Taken Unknown] melatonin ER 10 mg-pyridoxine HCl (B6) 10 mg tab, immed-extend release 1 ea PO QHS 06/10/17 [History Last Taken Unknown] quetiapine 25 mg tablet 25 mg PO TID 06/28/21 [History Last Taken Unknown] lipase 3,000-protease 9,500-amylase 15,000 unit capsule, delayed rel (Creon) 1 cap PO TID Check with primary doctor 06/29/21 [History Last Taken Unknown] ondansetron 4 mg disintegrating tablet 4 mg PO Q8H PRN nausea and vomiting #10 tabs 08/20/22 [Rx Last Taken Unknown] sucralfate 100 mg/mL oral suspension (Carafate) 10 ml PO TID PRN epigastric pain #200 mL 08/20/22 [Rx Last Taken Unknown] esomeprazole magnesium 20 mg capsule,delayed release (Nexium) 20 mg PO DAILY #30 caps 09/03/22 [Rx Last Taken Unknown] promethazine 25 mg tablet 25 mg PO TID PRN nausea and vomiting #10 tabs 09/03/22 [Rx Last Taken Unknown] ondansetron 4 mg disintegrating tablet 4 mg PO Q8H PRN PRN Nausea #10 tabs 12/01/22 [Rx Last Taken Unknown] doxycycline monohydrate 100 mg capsule 100 mg PO BID #20 CAPSULES 01/03/23 [Rx Last Taken Unknown] ondansetron 4 mg disintegrating tablet 4 mg PO Q8H PRN PRN Nausea #10 tabs 02/28/23 [Rx Last Taken Unknown] Allergy/AdvReac Type Severity Reaction Status Date / Time Penicillins Allergy Unknown Verified 01/02/23 21:36 sumatriptan [From Imitrex] Allergy Unknown Verified 01/02/23 21:36 sumatriptan succinate Allergy Unknown Verified 01/02/23 21:36 [From Imitrex] amoxicillin [Amoxicillin] AdvReac Nausea/Vom/ Verified 01/02/23 21:36 Diarrhea Surgical History History of herniorrhaphy No significant past surgical history Social History household members: family Smoking Status: Former smoker Smokeless tobacco user: chewing tobacco how long ago did patient quit smoking: Former cigarette tobacco use, now chew tobacco 2-3 wads daily. alcohol intake: never details: Patient states he currently is not drinking any alcoholic beverages substance use type: does not use ROS ROS ED Review of Systems ROS Unobtainable: other Constitutional Constitutional ED: Reports lethargy; Denies chills, fever(s), sweats or weight loss Eyes Eyes: Denies blurry vision, change in vision or diplopia ENT ENT ED: Denies rhinorrhea or sore throat Cardiovascular Cardiovascular: Denies chest pain, orthopnea or racing heartbeat Respiratory/Chest Respiratory/Chest: Denies cough, dyspnea, dyspnea on exertion, orthopnea or sputum Gastrointestinal Gastrointestinal: Reports abdominal pain, nausea and vomiting; Denies diarrhea Genitourinary Genitourinary ED: Denies dysuria, hematuria or urinary frequency Musculoskeletal Musculoskeletal: Denies arthralgias, back pain, myalgias or neck pain Integumentary Denies abscess, Abrasions or rash Neurologic Neurologic: Denies headache(s) or weakness Psychiatric Psychiatric: Denies anxiety, depression or suicidal thoughts Endocrine Endocrinology: Denies polydipsia, polyphagia or polyuria Hematologic/Lymphatic Hematologic/Lymphatic: Denies easy bleeding, easy bruising or lymphadenopathy Allergic/Immunologic Allergic/Immunologic ED: Denies mouth swelling, tongue swelling or urticaria EXAM Physical Exam Const Vital Signs: 02/28/23 19:52 Temperature 98 F Temperature Source Temporal Pulse Rate 92 Respiratory Rate 16 Blood Pressure 128/94 H Blood Pressure Mean 105 Pulse Ox 98 Oxygen Delivery Method Room Air Positive well nourished and well developed General Appearance ED: well developed and NAD HEENT Reports TM's clear and moist mucous membranes normocephalic and atraumatic; Negative for trauma or tenderness Tympanic Membrane ED: Yes TM's clear Eyes PERRL and EOMs intact bilaterally General Eye ED: Negative for pale conjunctiva or scleral icterus Neck no lymphadenopathy, supple and no JVD General: Negative for tenderness Chest Wall inspection of chest normal and palpation of chest normal Chest: Negative for tenderness Resp normal respiratory effort and clear to auscultation bilaterally Effort and Inspection: Negative for respiratory distress or pain with movement Auscultation: Negative for rhonchi, wheezes or diminished lung sounds Cardio regular rate, regular rhythm, S1 normal heart sound, S2 normal heart sound and no murmurs Peripheral Pulses: pulses 2+ throughout GI normal to inspection, nondistended, normoactive bowel sounds, soft to palpation, non-distended and no masses GI Narrative: Tenderness palpation over the left lower quadrant with some mild guarding. There is no rebound, rigidity, or pedal signs. No masses palpated. Back/Spine no CVA tenderness and no thoracic nor lumbar tenderness Extremity normal to inspection General Extremety ED: Negative for edema General Extremity: Negative for edema Neuro oriented x3, CN's II-XII intact bilaterally, no sensory deficits noted and gait normal Sensorium / Orientation: awake, alert, oriented to person, oriented to place and oriented to time Motor Exam: strength 5/5 throughout and strength abnormal Psych mental status grossly normal Skin no rashes or lesions noted and no wounds MDM MDM MDM Narrative Medical decision making narrative: Patient presents with vomiting and abdominal pain. In the differential would be pancreatitis versus viral gastroenteritis versus kidney stone or UTI or other intra-abdominal pathology. Recommended IV fluids as well as lab work-up and imaging of his abdomen such as a CT to evaluate further. Patient tells me that he does not think that there is anything wrong and just wanted something for the nausea. He does not want to have any blood work or any type of imaging. Patient understands that I cannot completely evaluate him without lab work-up and imaging. He understands this. He does not want to have an IV or lab work-up or imaging. Patient was given a dose of Zofran. He will be given a prescription for Zofran. Clinically I do not feel he has an acute abdomen. Patient advised to return if persistent vomiting, worsening abdominal pain, fever, or condition should worsen anyway. Patient otherwise to follow-up with his primary care physician within next 3 to 5 days. Discharge Plan Triage Chief Complaint: Nausea/Vomiting ED Provider: Provider,Ed Physician Dx/Rx/DC Orders Clinical Impression: Abdominal pain, Vomiting Instructions: ED Gastroenteritis, Viral (Adult), ED Abdominal Pain Unkn Cause Male... Prescriptions: New ondansetron [ondansetron] 4 mg tablet,disintegrating 4 mg PO Q8H PRN PRN (Reason: Nausea) Qty: 10 0RF No Action buspirone 5 MG tablet 10 mg PO TID PRN (Reason: Anxiety) dicyclomine 10 MG capsule 20 mg PO 4X/DAY PRN PRN (Reason: Pain) loratadine [Allergy Relief (loratadine)] 10 MG tablet 10 mg PO DAILY melatonin-pyridoxine HCl (B6) 1 EACH tablet, IR and ER, biphasic 1 ea PO QHS famotidine [Pepcid] 40 MG tablet 40 mg PO QHS quetiapine 25 mg tablet 25 mg PO TID Creon 3,000-9,500- 15,000 unit Capsule,Delayed Release(Dr/Ec) 1 cap PO TID Rx Instructions: with meals sucralfate [Carafate] 100 mg/mL suspension 10 ml PO TID PRN (Reason: epigastric pain) Qty: 200 0RF ondansetron 4 mg tablet,disintegrating 4 mg PO Q8H PRN (Reason: nausea and vomiting) Qty: 10 0RF esomeprazole magnesium [Nexium] 20 mg capsule,delayed release(DR/EC) 20 mg PO DAILY Qty: 30 0RF promethazine 25 mg tablet 25 mg PO TID PRN (Reason: nausea and vomiting) Qty: 10 0RF ondansetron [ondansetron] 4 mg tablet,disintegrating 4 mg PO Q8H PRN PRN (Reason: Nausea) Qty: 10 0RF doxycycline monohydrate 100 mg capsule 100 mg PO BID Qty: 20 0RF Primary Care Provider: Care Physician,No Primary Referrals: Care Physician,No Primary [Primary Care Provider] - Activity Restrictions/Additional Instructions: Follow-up with your primary care physician within next 3 to 5 days. Disposition Disposition: Home, Self Care
[2023-02-28] MEDS: Ondansetron ODT 4 MG Tablet PO (20:05)
== END 2023-02-28 20:06 | disposition home or self-care (01) ==
PROVIDERS: Emergency Provider Emergency Medicine; Visit Provider Emergency Medicine
DX: R10.9 Unspecified abdominal pain (principal); R11.2 Nausea with vomiting, unspecified; F41.9 Anxiety disorder, unspecified; Z79.899 Other long term (current) drug therapy; Z87.891 Personal history of nicotine dependence
CPT/HCPCS: 99284

== ENCOUNTER 2023-06-05 18:00 | Emergency (ER) | payer MEDICARE, MEDICAID, SELFPAY ==
[2023-06-05 18:03] VITALS: BP 141/115; PULSE 96; RESP 18; TEMP 36.2; O2SAT 99; BMI 22.4
--- NOTE | 2023-06-05 18:32 | EDS_ITS ---
HPI History of Present Illness Chief Complaint: Abd Pain Detail of Chief Complaint: Abdominal cramping, diarrhea, cough Informant: patient Narrative Narrative: Patient presents with abdominal cramping and some diarrhea today. He had some i ntermittent nausea. He does report cough with phlegm. He has not had fever. PFSH PFSH Medical History Anxiety Chronic GERD Pancreatitis Tobacco use Home Medications buspirone 5 mg tablet 10 mg PO TID PRN Anxiety 06/10/17 [History Last Taken Unknown] dicyclomine 10 mg capsule 20 mg PO 4X/DAY PRN PRN Pain 06/10/17 [History Last Taken Unknown] famotidine 40 mg tablet (Pepcid) 40 mg PO QHS 06/10/17 [History Last Taken Unknown] loratadine 10 mg tablet (Allergy Relief (loratadine)) 10 mg PO DAILY 06/10/17 [History Last Taken Unknown] melatonin ER 10 mg-pyridoxine HCl (B6) 10 mg tab, immed-extend release 1 ea PO QHS 06/10/17 [History Last Taken Unknown] quetiapine 25 mg tablet 25 mg PO TID 06/28/21 [History Last Taken Unknown] lipase 3,000-protease 9,500-amylase 15,000 unit capsule, delayed rel (Creon) 1 cap PO TID Check with primary doctor 06/29/21 [History Last Taken Unknown] ondansetron 4 mg disintegrating tablet 4 mg PO Q8H PRN nausea and vomiting #10 tabs 08/20/22 [Rx Last Taken Unknown] esomeprazole magnesium 20 mg capsule,delayed release (Nexium) 20 mg PO DAILY #30 caps 09/03/22 [Rx Last Taken Unknown] doxycycline monohydrate 100 mg capsule 100 mg PO BID #20 CAPSULES 01/03/23 [Rx Last Taken Unknown] Allergy/AdvReac Type Severity Reaction Status Date / Time Penicillins Allergy Unknown Verified 06/05/23 18:02 sumatriptan [From Imitrex] Allergy Unknown Verified 06/05/23 18:02 sumatriptan succinate Allergy Unknown Verified 06/05/23 18:02 [From Imitrex] amoxicillin [Amoxicillin] AdvReac Nausea/Vom/ Verified 06/05/23 18:02 Diarrhea Surgical History History of herniorrhaphy No significant past surgical history Social History household members: family Smoking Status: Current every day smoker tobacco type: cigarettes and e- cigarettes Smokeless tobacco user: chewing tobacco how long ago did patient quit smoking: Former cigarette tobacco use, now chew tobacco 2-3 wads daily. alcohol intake: never details: Patient states he currently is not drinking any alcoholic beverages substance use type: does not use ROS ROS ED Constitutional Constitutional ED: Denies chills or fever(s) Eyes Eyes: Denies discharge from eye(s) ENT ENT ED: Reports sore throat; Denies discharge from eye(s) or rhinorrhea Cardiovascular Cardiovascular: Denies chest pain or palpitations Respiratory/Chest Respiratory/Chest: Reports cough; Denies dyspnea Gastrointestinal Gastrointestinal: Reports abdominal pain, diarrhea and nausea; Denies vomiting Genitourinary Genitourinary ED: Denies difficulty urinating or dysuria Musculoskeletal Musculoskeletal: Reports extremity pain; Denies back pain Integumentary Denies Abrasions or rash Neurologic Neurologic: Denies headache(s) or weakness Psychiatric Psychiatric: Reports anxiety; Denies depression Allergic/Immunologic Allergic/Immunologic ED: Denies lip swelling or urticaria EXAM Physical Exam Const Vital Signs: 06/05/23 18:03 Temperature 97.1 F L Temperature Source Temporal Pulse Rate 96 Respiratory Rate 18 Blood Pressure 141/115 H Blood Pressure Mean 123 Pulse Ox 99 Oxygen Delivery Method Room Air Positive well nourished and well developed General Appearance ED: well developed HEENT Reports moist mucous membranes HEENT Narrative: Posterior pharynx examination unremarkable. Eyes EOMs intact bilaterally Neck no lymphadenopathy Chest Wall inspection of chest normal and palpation of chest normal Resp normal respiratory effort and clear to auscultation bilaterally Cardio regular rate and regular rhythm GI non-tender Auscultation: normoactive bowel sounds Palpation: soft Extremity normal to inspection Neuro oriented x3 and no sensory deficits noted Motor Exam: strength 5/5 throughout Psych mental status grossly normal Skin no rashes or lesions noted MDM MDM MDM Narrative Medical decision making narrative: Acute abdominal series will be obtained to evaluate for infiltrate, bowel obstruction. Patient is given Zofran and Bentyl to help with his abdominal cramping and nausea. He request a GI cocktail as well for reflux. Radiography Diagnostic Testing: Clinical Impression(s) from Imaging Studies Acute Abdomen Series 06/05/23 19:00 IMPRESSION: 1. No active pulmonary disease. 2. Nonspecific gaseous bowel loops and colon with air-fluid levels could be due to ileus. Electronically Signed: Matias Yrabrough MD at 19:19 EDT , Treatment and Re-Evaluation :: Acute abdominal series per my interpretation reveals no acute abnormalities. Radiology interpretation is reviewed. On repeat evaluation patient is feeling improved. He states he has Zofran and Bentyl at home that he can take. I did discuss with him that his symptoms are all consistent with a viral infection and will simply need to run their course. Supportive cares discussed. Discharge Plan Triage Chief Complaint: Abd Pain ED Provider: Pam Bear Dx/Rx/DC Orders Clinical Impression: Viral syndrome Instructions: ED Viral Syndrome (Adult) Prescriptions: No Action buspirone 5 MG tablet 10 mg PO TID PRN (Reason: Anxiety) dicyclomine 10 MG capsule 20 mg PO 4X/DAY PRN PRN (Reason: Pain) loratadine [Allergy Relief (loratadine)] 10 MG tablet 10 mg PO DAILY melatonin-pyridoxine HCl (B6) 1 EACH tablet, IR and ER, biphasic 1 ea PO QHS famotidine [Pepcid] 40 MG tablet 40 mg PO QHS quetiapine 25 mg tablet 25 mg PO TID Creon 3,000-9,500- 15,000 unit Capsule,Delayed Release(Dr/Ec) 1 cap PO TID Rx Instructions: with meals ondansetron 4 mg tablet,disintegrating 4 mg PO Q8H PRN (Reason: nausea and vomiting) Qty: 10 0RF esomeprazole magnesium [Nexium] 20 mg capsule,delayed release(DR/EC) 20 mg PO DAILY Qty: 30 0RF doxycycline monohydrate 100 mg capsule 100 mg PO BID Qty: 20 0RF Primary Care Provider: Care Physician,No Primary Referrals: Safia Cisse MD [Med Staff - English Professor] - As Needed Care Physician,No Primary [Primary Care Provider] - Disposition Disposition: Home, Self Care
[2023-06-05] MEDS: Ondansetron ODT 4 MG Tablet PO (18:43)
[2023-06-05] MEDS: Dicyclomine 10 MG Capsule 20 MG PO (18:43)
[2023-06-05] MEDS: Mag Hydrox/Al Hydrox/Simeth 30 ML UDC PO (18:43)
--- NOTE | 2023-06-05 19:00 | RAD_ITS ---
INDICATION: pain EXAMINATION/TECHNIQUE: X-RAY - XR Abdomen Series W/ Chest 1 View COMPARISON: No prior examinations are available for comparison. FINDINGS: --Chest: LINES/DEVICES: None. LUNGS: No consolidation, edema or effusion. No pneumothorax. MEDIASTINUM AND CARDIOVASCULAR STRUCTURES: Cardiac silhouette not enlarged. Central airways and mediastinal contour are unremarkable. BONES AND SOFT TISSUES: No acute findings. --Abdomen: BOWEL GAS PATTERN: Nonspecific gaseous bowel loops and colon with air-fluid levels could be due to ileus. FREE AIR: None visualized. ORGANOMEGALY: Not seen. CALCIFICATIONS: No abnormal calcifications observed. BONES AND SOFT TISSUES: No acute findings. RAD/Acute Abdomen Inc Chest IMPRESSION: 1. No active pulmonary disease. 2. Nonspecific gaseous bowel loops and colon with air-fluid levels could be due to ileus. Electronically Signed: Matias Yarbrough MD at 19:19 EDT ,
== END 2023-06-05 19:39 | disposition home or self-care (01) ==
PROVIDERS: Emergency Provider Emergency Medicine; Visit Provider Emergency Medicine
DX: B34.9 Viral infection, unspecified (principal); F17.210 Nicotine dependence, cigarettes, uncomplicated; F41.9 Anxiety disorder, unspecified; K21.9 Gastro-esophageal reflux disease without esophagitis; Z79.899 Other long term (current) drug therapy
CPT/HCPCS: 74022; 99283

== ENCOUNTER 2023-12-25 03:44 | Emergency (ER) | payer MEDICARE, MEDICAID, SELFPAY ==
[2023-12-25 03:45] VITALS: BP 116/74; PULSE 93; RESP 16; TEMP 36.9; O2SAT 100; BMI 21.2
--- NOTE | 2023-12-25 03:56 | ED.VIS.GI ---
HPI HPI - GI History of Present Illness Chief Complaint: Abd Pain Detail of Chief Complaint: Upper abdominal pain and reflux Informant: patient Narrative Narrative: Patient presents to the emergency department with complaint of upper abdomen pain and reflux. He states he is vomited 2 or 3 times tonight. He has history of GERD and takes famotidine. Patient took some Tums which seemed to help a little bit. Patient states he has been in the ER before for this and GI cocktail seem to really help. Patient denies any fevers. He states that laying down makes it worse. Patient requesting a GI cocktail. PFSH PFSH Medical History Acute sinusitis, unspecified Anxiety Chronic GERD Pancreatitis Tobacco use Home Medications buspirone 5 mg tablet 10 mg PO TID PRN Anxiety 06/10/17 [History Last Taken Unknown] famotidine 40 mg tablet (Pepcid) 40 mg PO QHS 06/10/17 [History Last Taken Unknown] quetiapine 25 mg tablet 25 mg PO TID 06/28/21 [History Last Taken Unknown] ondansetron 4 mg disintegrating tablet 4 mg PO Q8H PRN PRN Nausea #10 tabs 12/25/23 [Rx Last Taken Unknown] Allergy/AdvReac Type Severity Reaction Status Date / Time Penicillins Allergy Unknown Verified 12/25/23 03:44 sumatriptan [From Imitrex] Allergy Unknown Verified 12/25/23 03:44 sumatriptan succinate Allergy Unknown Verified 12/25/23 03:44 [From Imitrex] amoxicillin [Amoxicillin] AdvReac Nausea/Vom/ Verified 12/25/23 03:44 Diarrhea Surgical History History of herniorrhaphy No significant past surgical history Social History household members: family Smoking Status: Current every day smoker tobacco type: cigarettes and e-cigarettes Smokeless tobacco user: chewing tobacco how long ago did patient quit smoking: Former cigarette tobacco use, now chew tobacco 2-3 wads daily. alcohol intake: never details: Patient states he currently is not drinking any alcoholic beverages substance use type: does not use ROS ROS ED Review of Systems ROS Unobtainable: other Constitutional Constitutional ED: Reports lethargy; Denies chills, fever(s), sweats or weight loss Eyes Eyes: Denies blurry vision, change in vision or diplopia ENT ENT ED: Denies rhinorrhea or sore throat Cardiovascular Cardiovascular: Denies chest pain, orthopnea or racing heartbeat Respiratory/Chest Respiratory/Chest: Denies cough, dyspnea, dyspnea on exertion, orthopnea or sputum Gastrointestinal Gastrointestinal: Reports abdominal pain, nausea and vomiting; Denies diarrhea Genitourinary Genitourinary ED: Denies dysuria, hematuria or urinary frequency Musculoskeletal Musculoskeletal: Denies arthralgias, back pain, myalgias or neck pain Integumentary Denies abscess, Abrasions or rash Neurologic Neurologic: Denies headache(s) or weakness Psychiatric Psychiatric: Denies anxiety, depression or suicidal thoughts Endocrine Endocrinology: Denies polydipsia, polyphagia or polyuria Hematologic/Lymphatic Hematologic/Lymphatic: Denies easy bleeding, easy bruising or lymphadenopathy Allergic/Immunologic Allergic/Immunologic ED: Denies mouth swelling, tongue swelling or urticaria EXAM Physical Exam Const Vital Signs: 12/25/23 03:45 12/25/23 04:42 12/25/23 05:51 Temperature 98.5 F 98.1 F Temperature Source Temporal Oral Pulse Rate 93 87 81 Respiratory Rate 16 16 16 Blood Pressure 116/74 120/79 121/84 H Blood Pressure Mean 88 92 96 Pulse Ox 100 97 97 Oxygen Delivery Method Room Air Room Air 12/25/23 07:31 Temperature 97.4 F L Temperature Source Pulse Rate 79 Respiratory Rate 16 Blood Pressure 116/83 H Blood Pressure Mean 94 Pulse Ox 99 Oxygen Delivery Method Positive well nourished and well developed General Appearance ED: well developed and NAD HEENT Reports TM's clear and moist mucous membranes normocephalic and atraumatic; Negative for trauma or tenderness Tympanic Membrane ED: Yes TM's clear Eyes PERRL and EOMs intact bilaterally General Eye ED: Negative for pale conjunctiva or scleral icterus Neck no lymphadenopathy, supple and no JVD General: Negative for tenderness Chest Wall inspection of chest normal and palpation of chest normal Chest: Negative for tenderness Resp normal respiratory effort and clear to auscultation bilaterally Effort and Inspection: Negative for respiratory distress or pain with movement Auscultation: Negative for rhonchi, wheezes or diminished lung sounds Cardio regular rate, regular rhythm, S1 normal heart sound, S2 normal heart sound and no murmurs Peripheral Pulses: pulses 2+ throughout GI normal to inspection, nondistended, normoactive bowel sounds, soft to palpation, non-distended and no masses GI Narrative: Mild tenderness over the epigastric region. There is no rebound, rigidity, or peritoneal signs. No mass palpated. No tenderness over McBurney's. Back/Spine no CVA tenderness and no thoracic nor lumbar tenderness Extremity normal to inspection General Extremety ED: Negative for edema General Extremity: Negative for edema Neuro oriented x3, CN's II-XII intact bilaterally, no sensory deficits noted and gait normal Sensorium / Orientation: awake, alert, oriented to person, oriented to place and oriented to time Motor Exam: strength 5/5 throughout and strength abnormal Psych mental status grossly normal Skin no rashes or lesions noted and no wounds MDM MDM MDM Narrative Medical decision making narrative: Patient presents with GERD like symptoms and prior similar episodes. Will give a GI cocktail and will observe and then reevaluate. Patient continued to describe discomfort after the GI cocktail and recommended obtaining lab work. CBC with differential obtained with significant for an elevated white blood cell count of 17.2 with hemoglobin 17.9 and platelet count of 201. Chemistries unremarkable. LFTs were normal. Lipase was normal at 42. I ordered a CT scan of the abdomen and pelvis to evaluate further to rule out acute intra-abdominal process such as perforated peptic ulcer or bowel obstruction, appendicitis, or other acute intra-abdominal process. I discussed this with the patient and he is refusing the CAT scan. Patient was to try another GI cocktail which I will give him. He is stating that he is feeling improved. He understands my concerns and does not want a CAT scan. Lab Data Attestation: I reviewed the patient's lab results. Labs: Laboratory Results - last 24 hr 12/25/23 05:18 WBC 17.2 H RBC 5.60 Hgb 17.9 H Hct 51.2 MCV 91.4 MCH 32.0 MCHC 35.0 RDW Std Deviation 39.5 RDW Coeff of Iggy 11.9 Plt Count 201 MPV 10.4 Immature Gran % (Auto) 0.500 Neut % (Auto) 85.7 H Lymph % (Auto) 5.8 L Catron % (Auto) 7.1 Eos % (Auto) 0.5 Baso % (Auto) 0.4 Absolute Neuts (auto) 14.8 H Absolute Lymphs (auto) 1.00 Nucleated RBC % 0 Sodium 142 Potassium 3.2 L Chloride 105 Carbon Dioxide 32.0 Anion Gap 5 BUN 15 Creatinine 0.94 Estim Creat Clear Calc 97.58 Est GFR (MDRD) Af Amer 116 Est GFR (MDRD) Non-Af 96 BUN/Creatinine Ratio 15.9 Glucose 91 Calcium 9.2 Total Bilirubin 1.10 H AST 21 ALT 23 Alkaline Phosphatase 69 Total Protein 8.4 H Albumin 4.5 Globulin 3.9 Albumin/Globulin Ratio 1.2 Lipase 42 Radiography Diagnostic Testing: Clinical Impression(s) from Imaging Studies Abdomen/Pelvis CT 12/25/23 05:58 IMPRESSION: Fluid throughout stomach, small bowel, and most of the colon with mild proximal small bowel wall thickening. This is nonspecific but compatible with mild infectious enteritis in the appropriate setting. Electronically Signed: Ashutosh Matamoros MD at 6:51 EDT Reading Location ID and State: [facility] / [place] Tel , Service support , Discharge Plan Triage Chief Complaint: Abd Pain ED Provider: Varun Early Dx/Rx/DC Orders Clinical Impression: History of gastroesophageal reflux (GERD), Abdominal pain Instructions: ED GERD (Adult), ED Abdominal Pain Unkn Cause Male... Prescriptions: New ondansetron [ondansetron] 4 mg tablet,disintegrating 4 mg PO Q8H PRN PRN (Reason: Nausea) Qty: 10 0RF No Action buspirone 5 MG tablet 10 mg PO TID PRN (Reason: Anxiety) famotidine [Pepcid] 40 MG tablet 40 mg PO QHS quetiapine 25 mg tablet 25 mg PO TID Primary Care Provider: Care Physician,No Primary Referrals: Luis M Jones DO [Med Staff - Legislators] - 3-5 Days Care Physician,No Primary [Primary Care Provider] - Disposition Disposition: Home, Self Care Discharge Date/Time: 12/25/23 07:34
[2023-12-25] MEDS: Mag Hydrox/Al Hydrox/Simeth 30 ML UDC PO ×2 (04:00→05:58)
[2023-12-25 04:42] VITALS: BP 120/79; PULSE 87; RESP 16; O2SAT 97
[2023-12-25] MEDS: 0.9% Normal Saline (1000mL) 1,000 ML 125 ML IV (05:19)
[2023-12-25] MEDS: Ondansetron 4 MG/2 ML Vial IV (05:24)
[2023-12-25 05:31] LABS: Absolute Neutrophil Count 14.8 X10^3/uL (2.0-7.7); Basophil# 0.07 X10^3/uL; Basophil% 0.4 % (0-1); Eosinophil# 0.09 X10^3/uL; Eosinophils% 0.5 % (0-5); Hematocrit 51.2 % (40-54); Hemoglobin 17.9 g/dL (13.0-16.5); Lymphocyte % 5.8 % (19-41); Mean Corpuscular Volume 91.4 fL (80-94); Mean Platelet Vol. 10.4 fl (6.2-12.0); Monocyte# 1.22 X10^3/uL; Monocyte% 7.1 % (0-10); NRBC Flagged by Analyzer 0 % (0-5); Neutrophil # 14.76 X10^3/uL (2.7-7.7); Neutrophil % 85.7 % (47-70); Platelet Count 201 K/mm3 (150-450); RBC Distribution Width CV 11.9 % (11.6-14.6); RBC Distribution Width SD 39.5 fl (35.1-43.9); White Blood Count 17.2 K/mm3 (4.4-11.0)
[2023-12-25 05:45] LABS: ALB/GLOB Ratio 1.2 RATIO (0.9-2.4); AST(SGOT) 21 U/L (15-37); Alanine Aminotransfer ALT/SGPT 23 U/L (16-61); Albumin, Serum 4.5 g/dL (3.2-5.0); Alkaline Phosphatase 69 U/L (45-117); Anion Gap 5 (5-15); BUN 15 mg/dL (7-18); BUN/Creat Ratio 15.9 RATIO (10-20); Calcium,Total 9.2 mg/dL (8.5-10.1); Chloride 105 mmol/L (98-107); Creatinine, Serum 0.94 mg/dL (0.70-1.30); EST Glomerular Filtration Rate 96 mL/min (>60); Est Glom Filt Rate - Afr Amer 116 mL/min (>60); Estimated Creatinine Clearance 97.58 ml/min; Globulin 3.9 g/dL (2.2-4.2); Glucose 91 mg/dL (74-106); Lipase 42 U/L (13-75); Potassium 3.2 mmol/L (3.5-5.1); Protein, Total 8.4 g/dL (6.4-8.2); Sodium Level 142 mmol/L (136-145)
[2023-12-25 05:51] VITALS: BP 121/84; PULSE 81; RESP 16; TEMP 36.7; O2SAT 97
--- NOTE | 2023-12-25 05:58 | CT_ITS ---
INDICATION: abdominal pain EXAMINATION: CT ABDOMEN AND PELVIS WITHOUT CONTRAST - CT Abdomen And Pelvis W/O Contrast Injection TECHNIQUE: Helically acquired images were obtained of the abdomen and pelvis without oral or IV contrast. A radiation dose optimization technique was used for this scan. IV Contrast dosage and agent: None. Oral contrast: None. COMPARISON: None. FINDINGS: LOWER CHEST: Lung bases are clear. No cardiomegaly or pericardial effusion. LIVER: Homogeneous. No focal mass. GALLBLADDER AND BILIARY TREE: No calcified gallstones. No gallbladder distension or wall edema. No intra- or extrahepatic biliary ductal dilation. PANCREAS: No focal cystic or solid mass. SPLEEN: Normal size without focal cystic or solid mass. ADRENAL GLANDS: No nodules. KIDNEYS AND URETERS: Normal renal size and position. No hydronephrosis. PERITONEUM: No ascites or free air. No other fluid collection. BOWEL: Stomach is fluid-filled. Small bowel is fluid-filled without with mild long segment proximal wall thickening. No gross bowel distention. Normal appendix. Fluid-filled colon extending to inferior descending colon without wall thickening or surrounding inflammation. . LYMPH NODES: No enlarged mesenteric or retroperitoneal lymph nodes. VESSELS: Aorta is non-dilated. URINARY BLADDER: Unremarkable. ABDOMINAL WALL: Small Fat-containing umbilical hernia without inflammation. BONES: No lytic or blastic abnormality. CT/Abdomen/Pelvis without Cont IMPRESSION: Fluid throughout stomach, small bowel, and most of the colon with mild proximal small bowel wall thickening. This is nonspecific but compatible with mild infectious enteritis in the appropriate setting. Electronically Signed: Ashutosh Matamoros MD at 6:51 EDT ,
[2023-12-25 07:31] VITALS: BP 116/83; PULSE 79; RESP 16; TEMP 36.3; O2SAT 99
== END 2023-12-25 07:34 | disposition home or self-care (01) ==
PROVIDERS: Emergency Provider Emergency Medicine; Visit Provider Emergency Medicine
DX: R10.10 Upper abdominal pain, unspecified (principal); K21.9 Gastro-esophageal reflux disease without esophagitis; F17.210 Nicotine dependence, cigarettes, uncomplicated; F17.290 Nicotine dependence, other tobacco product, uncomplicated; Z79.899 Other long term (current) drug therapy
CPT/HCPCS: 74176; 80053; 83690; 85025; 96361; 96374; 99283; J7030; J2405

== ENCOUNTER 2024-06-16 21:16 | Emergency (ER) | payer MEDICARE, MEDICAID, SELFPAY ==
[2024-06-16 21:17] VITALS: BP 133/91; PULSE 91; RESP 16; TEMP 36.6; O2SAT 99; BMI 24.1
--- NOTE | 2024-06-16 22:35 | EX.ED.DYSGE1 ---
HPI History of Present Illness Chief Complaint: Abd Pain Informant: patient Narrative Narrative: Patient is a 38-year-old male with past medical history of gastritis. He states he takes famotidine secondary to this. He reports that he has tried to decrease the amount of spicy and acidic foods in his diet but he still drinks caffeine as well as uses nicotine. He reports he contacted his family doctor that he is out of his medication but he did not hear back from them and this evening he was having increased stomach burning and pain. Secondary to this he comes in for evaluation. [facility] Medical History (Updated 06/16/24 @ 23:[address] Matt Whatley, DO) Acute sinusitis, unspecified Pancreatitis Chronic GERD Tobacco use Anxiety Home Medications ?Medication ?Instructions ?Recorded ?Last Taken ?Type buspirone 5 mg tablet 10 mg PO TID PRN Anxiety 06/10/17 Unknown History famotidine 40 mg tablet (Pepcid) 40 mg PO QHS 06/10/17 Unknown History quetiapine 25 mg tablet 25 mg PO TID 06/28/21 Unknown History ondansetron 4 mg disintegrating 4 mg PO Q8H PRN PRN Nausea #10 tabs 12/25/23 Unknown Rx tablet famotidine 20 mg tablet 20 mg PO BID 30 days #60 tabs 06/16/24 Unknown Rx Allergy/AdvReac Type Severity Reaction Status Date / Time Penicillins Allergy Unknown Verified 06/16/24 21:18 sumatriptan (From Imitrex) Allergy Unknown Verified 06/16/24 21:18 sumatriptan succinate (From Allergy Unknown Verified 06/16/24 21:18 Imitrex) amoxicillin (Amoxicillin) AdvReac Nausea/Vom/ Verified 06/16/24 21:18 Diarrhea Surgical History History of herniorrhaphy No significant past surgical history Social History household members: family Smoking Status: Current every day smoker tobacco type: cigarettes and e-cigarettes Smokeless tobacco user: chewing tobacco how long ago did patient quit smoking: Former cigarette tobacco use, now chew tobacco 2-3 wads daily. alcohol intake: never details: Patient states he currently is not drinking any alcoholic beverages substance use type: does not use ROS ROS ED Constitutional Constitutional ED: Denies chills or fever(s) ENT ENT ED: Denies sore throat Cardiovascular Cardiovascular: Denies chest pain Respiratory/Chest Respiratory/Chest: Denies cough or dyspnea Gastrointestinal Gastrointestinal: Reports abdominal pain; Denies diarrhea, nausea or vomiting Genitourinary Genitourinary ED: Denies dysuria Musculoskeletal Musculoskeletal: Denies myalgias Integumentary Denies rash Neurologic Neurologic: Denies headache(s) Hematologic/Lymphatic Hematologic/Lymphatic: Denies easy bleeding or easy bruising EXAM Physical Exam Const Vital Signs: 06/16/24 21:17 Temperature 97.8 F Temperature Source Temporal Pulse Rate 91 Respiratory Rate 16 Blood Pressure 133/91 H Blood Pressure Mean 105 Pulse Ox 99 Oxygen Delivery Method Room Air Positive well nourished and well developed General Appearance ED: well developed; Negative for pallor HEENT Reports moist mucous membranes HEENT Narrative: No tongue or lip swelling no oral lesions no airway edema or compromise No secondary findings in the posterior pharynx to suggest infection Eyes PERRL and EOMs intact bilaterally General Eye ED: Negative for scleral icterus Neck supple Resp normal respiratory effort and clear to auscultation bilaterally Cardio regular rate and regular rhythm GI normal to inspection, nondistended, normoactive bowel sounds, non-tender, non-distended and no masses GI Narrative: Abdomen is soft nontender and nondistended with normal active bowel sounds. No voluntary guarding or rigidity or pulsatile mass. Auscultation: normoactive bowel sounds Palpation: soft Extremity normal to inspection Neuro oriented x3, CN's II-XII intact bilaterally and no sensory deficits noted Sensorium / Orientation: alert Motor Exam: strength 5/5 throughout Psych mental status grossly normal Skin no rashes or lesions noted General Skin Exam: Negative for jaundice or pallor MDM MDM MDM Narrative Medical decision making narrative: Patient arrived to the ER slightly hypertensive but otherwise with stable vitals. He has a longstanding history of gastritis and does have risk factors for it based on his diet and nicotine use. He denies any alcohol use and he is not have pain on palpation of his abdomen and therefore my concern for pancreatitis versus biliary colic versus acute cholecystitis versus colitis is low and I do not feel there is need for testing. The patient states that this pain is very similar to his previous bouts of gastritis and is simply requesting a GI cocktail. As his history and exam is most consistent with this he was given a GI cocktail in the ER and his famotidine was refilled. However at this time with a soft nonsurgical abdomen and stable vitals I do not feel there is need for further workup and he is otherwise safe for discharge History & Record Review Discussion w/independent historian: Patient Discharge Plan Triage Chief Complaint: Abd Pain ED Provider: Matt Whatley Dx/Rx/DC Orders Clinical Impression: Gastritis, Tobacco use, Anxiety Instructions: ED Gastritis (Adult) Prescriptions: New famotidine 20 mg tablet 20 mg PO BID 30 Days Qty: 60 1RF No Action buspirone 5 MG tablet 10 mg PO TID PRN (Reason: Anxiety) famotidine [Pepcid] 40 MG tablet 40 mg PO QHS quetiapine 25 mg tablet 25 mg PO TID ondansetron [ondansetron] 4 mg tablet,disintegrating 4 mg PO Q8H PRN PRN (Reason: Nausea) Qty: 10 0RF Primary Care Provider: Care Physician,No Primary Referrals: Care Physician,No Primary [Primary Care Provider] - Print Language: Nepali Disposition Disposition: Home, Self Care Discharge Date/Time: 06/16/24 22:53
[2024-06-16] MEDS: Mag /Aluminum/Simeth WCH UDC 30 ML ORAL.SUSP PO (22:51)
[2024-06-16] MEDS: Lidocaine 2% Viscous15 ML UDC 15 ML PO (22:51)
== END 2024-06-16 22:53 | disposition home or self-care (01) ==
LOC: ED 22:50
PROVIDERS: Emergency Provider Emergency Medicine; Visit Provider Emergency Medicine
DX: K29.70 Gastritis, unspecified, without bleeding (principal); F41.9 Anxiety disorder, unspecified; F17.210 Nicotine dependence, cigarettes, uncomplicated; F17.290 Nicotine dependence, other tobacco product, uncomplicated; Z79.899 Other long term (current) drug therapy
CPT/HCPCS: 99282

== ENCOUNTER 2024-07-04 09:13 | Emergency (ER) | payer MEDICARE, MEDICAID, SELFPAY ==
[2024-07-04 09:13] VITALS: BP 122/90; PULSE 99; RESP 14; TEMP 36.1; O2SAT 97; BMI 24.0
--- NOTE | 2024-07-04 09:36 | EDS_ITS ---
HPI History of Present Illness Chief Complaint: Abd Pain Informant: patient Onset/Context/Timing Onset: Today Context: Gradual Onset Timing: Continuous Quality: Aching, burning, stabbing Location: Epigastric area Worsened by: Nothing Relieved by: Drinking water Narrative Narrative: Patient presents with upset stomach and epigastric pain that began today. Patient states he is on famotidine for this. Patient states he does not feel it is working any longer. Patient states he feels like he needs a GI cocktail. Patient describes his pain as burning, aching, and stabbing. Patient states it is mainly over the epigastric area. Patient denies any radiation into his chest. Patient admits to some low back pain. Patient admits to some dysuria but denies any hematuria. Patient admits to some nausea but denies any vomiting or diarrhea. Patient admits to some subjective chills but denies any fevers. [facility] Medical History Acute sinusitis, unspecified Pancreatitis Chronic GERD Tobacco use Anxiety Home Medications ?Medication ?Instructions ?Recorded ?Last Taken ?Type buspirone 5 mg tablet 10 mg PO TID PRN Anxiety 06/10/17 Unknown History famotidine 40 mg tablet (Pepcid) 40 mg PO QHS 06/10/17 Unknown History quetiapine 25 mg tablet 25 mg PO TID 06/28/21 Unknown History ondansetron 4 mg disintegrating 4 mg PO Q8H PRN PRN Nausea #10 tabs 12/25/23 Unknown Rx tablet famotidine 20 mg tablet 20 mg PO BID 30 days #60 tabs 06/16/24 Unknown Rx sulfamethoxazole 800 1 tab PO BID #6 TABLETS 07/04/24 Unknown Rx mg-trimethoprim 160 mg tablet Allergy/AdvReac Type Severity Reaction Status Date / Time Penicillins Allergy Unknown Verified 07/04/24 09:14 sumatriptan (From Imitrex) Allergy Unknown Verified 07/04/24 09:14 sumatriptan succinate (From Allergy Unknown Verified 07/04/24 09:14 Imitrex) amoxicillin (Amoxicillin) AdvReac Nausea/Vom/ Verified 07/04/24 09:14 Diarrhea Surgical History History of herniorrhaphy No significant past surgical history Social History household members: family Smoking Status: Current every day smoker tobacco type: cigarettes and e- cigarettes Smokeless tobacco user: chewing tobacco how long ago did patient quit smoking: Former cigarette tobacco use, now chew tobacco 2-3 wads daily. alcohol intake: never details: Patient states he currently is not drinking any alcoholic beverages substance use type: does not use ROS ROS ED Constitutional Constitutional ED: Reports chills and subjective; Denies fever(s) Eyes Eyes: Denies blurry vision or change in vision ENT ENT ED: Denies rhinorrhea or sore throat Cardiovascular Cardiovascular: Denies chest pain or palpitations Respiratory/Chest Respiratory/Chest: Denies cough or dyspnea Gastrointestinal Gastrointestinal: Reports abdominal pain and nausea; Denies diarrhea, melena or vomiting Genitourinary Genitourinary ED: Reports dysuria; Denies hematuria Musculoskeletal Musculoskeletal: Reports back pain; Denies neck pain Integumentary Denies abscess or rash Neurologic Neurologic: Reports headache(s); Denies weakness Allergic/Immunologic Allergic/Immunologic ED: Denies mouth swelling or urticaria EXAM Physical Exam Const Vital Signs: 07/04/24 09:13 Temperature 97 F L Temperature Source Temporal Pulse Rate 99 Respiratory Rate 14 Blood Pressure 122/90 H Blood Pressure Mean 100 Pulse Ox 97 Oxygen Delivery Method Room Air Positive well nourished and well developed General Appearance ED: well developed and NAD HEENT Reports moist mucous membranes Neck supple and no JVD Resp normal respiratory effort and clear to auscultation bilaterally Cardio regular rate and regular rhythm GI non-distended Palpation: soft and tender epigastric; Negative for guarding or rebound tenderness present Extremity normal to inspection General Extremety ED: Negative for edema or tenderness General Extremity: Negative for edema Neuro oriented x3, CN's II-XII intact bilaterally and no sensory deficits noted Sensorium / Orientation: alert Motor Exam: strength 5/5 throughout MDM MDM MDM Narrative Medical decision making narrative: Differential diagnosis includes gastritis, peptic ulcer disease, pancreatitis, cholecystitis, cholelithiasis, viral illness, and urinary tract infection. CBC will be obtained to assess for leukocytosis and anemia. Comprehensive metabolic profile will be obtained to assess for hepatic function, or renal function, and electrolyte abnormality. Lipase will be obtained to assess for pancreatitis. Urinalysis will be obtained to assess for urinary tract infection and hematuria. Lab Data Attestation: I reviewed the patient's lab results. Lab results narrative: Urinalysis was reviewed. Leukocyte esterase was 500 with greater than 100 white blood cells. There is no evidence of hematuria. Labs: Laboratory Results - last 24 hr 07/04/24 10:00 Urine Color Straw Urine Clarity Clear Urine pH 7.0 Ur Specific [place] 1.005 Urine Protein Negative Urine Glucose (UA) Normal Urine Ketones Negative Urine Occult Blood 25 H Urine Nitrite Negative Urine Bilirubin Negative Urine Urobilinogen Normal Ur Leukocyte Esterase 500 H Urine RBC 0 SEEN Urine WBC >100 SEEN Ur Squamous Epith Cells 0 SEEN Urine Bacteria RARE Urine Mucus 0 SEEN Additional Tests and Interventions Additional Tests or Interventions: Urine culture was ordered. Treatment and Re-Evaluation :: Patient was given IV fluids and Zofran. Patient was given a GI cocktail. Patient refused IV fluids and IV medications. Patient refused blood work. Patient was agreeable to urinalysis. Patient was advised that his epigastric pain could be related to pancreatitis especially, since he has had that in the past. Patient still refuses to have lab work drawn and IV placed. Patient will sign out AGAINST MEDICAL ADVICE. Patient was advised of his urinalysis results. Patient was given a prescription for Bactrim. Patient was given his first dose here. Patient was instructed to drink plenty of fluids. Patient was instructed to return if worse in any way. Patient understood and was agreeable with the plan. All questions were answered. Discharge Plan Triage Chief Complaint: Abd Pain ED Provider: Nolan Brady Dx/Rx/DC Orders Clinical Impression: Gastritis, Urinary tract infection Instructions: ED Gastritis (Adult), ED Bladder Infection, Male (Adult) Prescriptions: New sulfamethoxazole-trimethoprim 800-160 mg tablet 1 tab PO BID Qty: 6 0RF No Action buspirone 5 MG tablet 10 mg PO TID PRN (Reason: Anxiety) famotidine [Pepcid] 40 MG tablet 40 mg PO QHS quetiapine 25 mg tablet 25 mg PO TID ondansetron [ondansetron] 4 mg tablet,disintegrating 4 mg PO Q8H PRN PRN (Reason: Nausea) Qty: 10 0RF famotidine 20 mg tablet 20 mg PO BID 30 Days Qty: 60 1RF Primary Care Provider: Care Physician,No Primary Referrals: Care Physician,No Primary [Primary Care Provider] - Doctor,Your [Non-Staff] - 5-7 Days Activity Restrictions/Additional Instructions: You may take [id number] Maalox or Mylanta as needed. This is just as effective as a GI cocktail. Print Language: Bengali Disposition Disposition: Against Medical Advice
--- NOTE | 2024-07-04 09:47 | ED.RN ---
PT STATES HE DOES NOT WANT ANY NEEDLES OR BLOOD WORK. STATES I JUST WANT A GI COCKTAIL AND TO GO HOME. DR. MCMAHAN AWARE.
--- NOTE | 2024-07-04 09:47 | ED.RN ---
Pt refused IV and blood work. I just need a GI cocktail and go home. Irving POOLE aware.
[2024-07-04 10:03] LABS: Mucous, Urine 0 SEEN /hpf (<or=2+); Red Blood Cells-Urine 0 SEEN /hpf (0-5); Squamous Epithelial Cells - UA 0 SEEN /hpf (0-5)
[2024-07-04 10:07] LABS: Color, Urine Straw (Yellow); Glucose, Dipstick Normal (Normal); Ketone-Dipstick Negative (Negative); Leukocyte Esterase-Dipstick 500 /ul (Negative); Nitrite-Dipstick Negative (Negative); Occult Blood-Urine 25 /ul (Negative); Protein-Dipstick Negative (Negative); Specific Gravity, Urine 1.005 (1.002-1.030); Urine Bilirubin Dipstick Negative (Negative); Urine Clarity Clear (Clear); Urine Urobilinogen Normal (Normal)
[2024-07-04 10:18] LABS: White Blood Cells >100 SEEN /hpf (0-5)
[2024-07-04 10:19] LABS: Bacteria RARE /hpf (None Seen)
[2024-07-04 10:31] VITALS: BP 124/76; PULSE 64; RESP 18; TEMP 36.6; O2SAT 99
[2024-07-04] MEDS: Mag Hydrox/Al Hydrox/Simeth 30 ML UDC PO (10:31)
[2024-07-04] MEDS: Lidocaine 2% Viscous15 ML UDC 15 ML PO (10:31)
[2024-07-04] MEDS: Smz/Tmp Ds Tablet 1 TABLET PO (10:32)
== END 2024-07-04 10:43 | disposition left against medical advice (07) ==
LOC: ED 10:38
PROVIDERS: Emergency Provider Emergency Medicine; Visit Provider Emergency Medicine
DX: K29.70 Gastritis, unspecified, without bleeding (principal); N39.0 Urinary tract infection, site not specified; F17.220 Nicotine dependence, chewing tobacco, uncomplicated; F17.210 Nicotine dependence, cigarettes, uncomplicated; F17.290 Nicotine dependence, other tobacco product, uncomplicated
CPT/HCPCS: 81001; 87086; 99283

== ENCOUNTER 2024-08-20 13:20 | Emergency (ER) | payer MEDICARE, MEDICAID, SELFPAY ==
[2024-08-20 13:21] VITALS: BP 131/100; PULSE 93; RESP 16; TEMP 36.6; O2SAT 98; BMI 23.8
--- NOTE | 2024-08-20 13:39 | RAD_ITS ---
STUDY: X-RAY - ACUTE ABDOMINAL SERIES REASON FOR EXAM: Male, 39 years old. pain TECHNIQUE: Single view of the chest. Supine, 2 view(s) of the abdomen were obtained. COMPARISON: 06.05.23 FINDINGS: The lungs are clear and expanded. Normal size heart. Normal mediastinum and chen. Normal visualized pulmonary arteries. Normal visualized aortic arch and descending thoracic aorta. There is a non-specific bowel gas pattern. The soft tissue structures of the abdomen and pelvis are unremarkable. Normal visualized osseous structures. RAD/Acute Abdomen Inc Chest IMPRESSION: Normal x-ray examination of the chest, abdomen, and pelvis. Electronically Signed: Robert Eugene MD at 14:13 EST ,
--- NOTE | 2024-08-20 13:52 | EX.ED.DYSGE1 ---
HPI History of Present Illness Chief Complaint: Abd Pain Narrative Narrative: 39-year-old male presents with abdominal pain in the lower quadrants of his abdomen as well as dysuria. He states he has been having problems with bowel movements and constipation for the last few months. Additionally, he states that he has been having dysuria for the last 2-1/2 months. While he lives alone, he states he spoke to his mother and told he was supposed to be checked for intestinal blockage, urinary tract infection, and a bladder infection. He denies any fevers or chills. No nausea or vomiting. No problems with bowel movements in the sense that he is having bowel movements, but he states he does not feel as if he is fully evacuating. He feels as if there is more stool present in his colon. [facility] Medical History Acute sinusitis, unspecified Pancreatitis Chronic GERD Tobacco use Anxiety Home Medications ?Medication ?Instructions ?Recorded ?Last Taken ?Type buspirone 5 mg tablet 10 mg PO TID PRN Anxiety 06/10/17 Unknown History famotidine 40 mg tablet (Pepcid) 40 mg PO QHS 06/10/17 Unknown History quetiapine 25 mg tablet 25 mg PO TID 06/28/21 Unknown History ondansetron 4 mg disintegrating 4 mg PO Q8H PRN PRN Nausea #10 tabs 12/25/23 Unknown Rx tablet famotidine 20 mg tablet 20 mg PO BID 30 days #60 tabs 06/16/24 Unknown Rx sulfamethoxazole 800 1 tab PO BID #6 TABLETS 07/04/24 Unknown Rx mg-trimethoprim 160 mg tablet Allergy/AdvReac Type Severity Reaction Status Date / Time Penicillins Allergy Unknown Verified 08/20/24 13:21 sumatriptan (From Imitrex) Allergy Unknown Verified 08/20/24 13:21 sumatriptan succinate (From Allergy Unknown Verified 08/20/24 13:21 Imitrex) amoxicillin (Amoxicillin) AdvReac Nausea/Vom/ Verified 08/20/24 13:21 Diarrhea Surgical History History of herniorrhaphy No significant past surgical history Social History household members: family Smoking Status: Current every day smoker tobacco type: cigarettes and e-cigarettes Smokeless tobacco user: chewing tobacco how long ago did patient quit smoking: Former cigarette tobacco use, now chew tobacco 2-3 wads daily. alcohol intake: never details: Patient states he currently is not drinking any alcoholic beverages substance use type: does not use ROS ROS ED ROS Narrative Constitutional: No fever, no chills. HEENT: No sore throat. No neck pain. No loss of vision. No rhinorrhea. Cardiovascular: No chest pain. No palpitations. No pedal edema. Respiratory: No cough, no shortness of breath. Abdominal: No abdominal pain. No nausea. No vomiting. Feels as if he is not evacuating bowels fully. Genitourinary: 2 and half months of dysuria. No hematuria. Musculoskeletal: No myalgias. No arthralgias. Neurologic: No headaches. No dizziness. No lightheadedness. Skin: No rash. No change in color. Psychiatric: No depression. No anxiety. EXAM Physical Exam Narrative Exam Narrative: Afebrile. Vital signs noted. Nontoxic-appearing. HEENT: Normocephalic. Atraumatic. PERRL, EOMI. Neck soft and supple. No point tenderness or step off. Cardiovascular: Regular rate and rhythm. No murmurs, rubs, or gallops appreciated. Respiratory: No tachypnea. Lungs clear to auscultation bilaterally. Gastrointestinal: Abdomen soft, nontender, with normoactive bowel sounds. No rebound or guarding. Neurological: Awake. Alert. Nonfocal, nonlateralizing. Skin: No rash. Normal color. No pallor. Musculoskeletal: No pedal edema. Full range of motion extremities. Const Vital Signs: 08/20/24 13:21 Temperature 97.9 F Temperature Source Oral Pulse Rate 93 Respiratory Rate 16 Blood Pressure 131/100 H Blood Pressure Mean 110 Pulse Ox 98 Oxygen Delivery Method Room Air MDM MDM MDM Narrative Medical decision making narrative: I do not feel he needs laboratory work. Differential diagnosis includes partial small bowel obstruction versus constipation and also in the differential would be urinary tract infection and cystitis given his dysuria. He has a nonsurgical abdomen on examination. X-rays were obtained to rule out obstruction. Additionally, urinalysis was obtained to rule out infection. Urinalysis obtained and reviewed and there is evidence of infection, there are 0 WBCs and negative leukocytes, negative nitrites. I do not feel antibiotics are indicated. Acute abdominal series x-rays were obtained and interpreted by myself independently as no acute process, no obstruction, nonobstructive bowel gas pattern. There is moderate amount of stool within the colon noted. At this point in time, I feel he can use [id number] medication such as MiraLAX and Colace. He will follow-up with primary care. Disposition is discharged home in stable condition. History & Record Review Discussion w/independent historian: Patient Lab Data Attestation: I reviewed the patient's lab results. Labs: Laboratory Results - last 24 hr 08/20/24 13:59 Urine Color Yellow Urine Clarity Clear Urine pH 6.5 Ur Specific [place] 1.015 Urine Protein Negative Urine Glucose (UA) Normal Urine Ketones Negative Urine Occult Blood 25 H Urine Nitrite Negative Urine Bilirubin Negative Urine Urobilinogen Normal Ur Leukocyte Esterase Negative Urine RBC 0-5 SEEN Urine WBC 0 SEEN Ur Squamous Epith Cells 0-5 SEEN Urine Bacteria 1+ Urine Mucus 0 SEEN Radiography Diagnostic Testing: Clinical Impression(s) from Imaging Studies Acute Abdomen Series 08/20/24 13:39 IMPRESSION: Normal x-ray examination of the chest, abdomen, and pelvis. Electronically Signed: Robert Eugene MD at 14:13 EST Reading Location ID and State: [facility] / [place] , Service support , Discharge Plan Triage Chief Complaint: Abd Pain ED Provider: Alan Begum Dx/Rx/DC Orders Clinical Impression: Constipation, Dysuria Instructions: ED Constipation (Adult), ED Dysuria, Uncertain Cause (Adult) Prescriptions: No Action buspirone 5 MG tablet 10 mg PO TID PRN (Reason: Anxiety) famotidine [Pepcid] 40 MG tablet 40 mg PO QHS quetiapine 25 mg tablet 25 mg PO TID ondansetron [ondansetron] 4 mg tablet,disintegrating 4 mg PO Q8H PRN PRN (Reason: Nausea) Qty: 10 0RF famotidine 20 mg tablet 20 mg PO BID 30 Days Qty: 60 1RF sulfamethoxazole-trimethoprim 800-160 mg tablet 1 tab PO BID Qty: 6 0RF Primary Care Provider: Care Physician,No Primary Referrals: Vahid De La Rosa MD [Med Staff - Trimming Machine Operator] - As soon as possible Care Physician,No Primary [Primary Care Provider] - Activity Restrictions/Additional Instructions: Use [id number] medications such as MiraLAX or Colace as a stool softener. Follow-up with primary care within the next week. Return with new or worsening symptoms. Print Language: Amharic Disposition Disposition: Home, Self Care
[2024-08-20 14:06] LABS: Mucous, Urine 0 SEEN /hpf (<or=2+); White Blood Cells 0 SEEN /hpf (0-5)
[2024-08-20 14:08] LABS: Color, Urine Yellow (Yellow); Glucose, Dipstick Normal (Normal); Ketone-Dipstick Negative (Negative); Leukocyte Esterase-Dipstick Negative /ul (Negative); Nitrite-Dipstick Negative (Negative); Occult Blood-Urine 25 /ul (Negative); Protein-Dipstick Negative (Negative); Specific Gravity, Urine 1.015 (1.002-1.030); Urine Bilirubin Dipstick Negative (Negative); Urine Clarity Clear (Clear); Urine Urobilinogen Normal (Normal); Urine pH 6.5 (5.0 - 8.0)
[2024-08-20 14:20] LABS: Squamous Epithelial Cells - UA 0-5 SEEN /hpf (0-5)
[2024-08-20 14:21] LABS: Bacteria 1+ /hpf (None Seen); Red Blood Cells-Urine 0-5 SEEN /hpf (0-5)
== END 2024-08-20 14:31 | disposition home or self-care (01) ==
PROVIDERS: Emergency Provider Emergency Medicine; Visit Provider Emergency Medicine
DX: K59.00 Constipation, unspecified (principal); R30.0 Dysuria; F17.210 Nicotine dependence, cigarettes, uncomplicated; F17.220 Nicotine dependence, chewing tobacco, uncomplicated; F17.290 Nicotine dependence, other tobacco product, uncomplicated
CPT/HCPCS: 74022; 81001; 99282

== ENCOUNTER 2024-09-11 18:41 | Emergency (ER) | payer MEDICARE, MEDICAID, SELFPAY ==
[2024-09-11 18:43] VITALS: BP 128/92; PULSE 107; RESP 16; TEMP 37.2; O2SAT 98; BMI 24.3
--- NOTE | 2024-09-11 20:31 | ED.RN ---
Pt states he's going to come back tomorrow because he doesn't want to wait and my buddies want to go do something with me right now.
== END 2024-09-11 20:25 | disposition left against medical advice (07) ==
LOC: ED 20:30
DX: Z53.21 Procedure and treatment not carried out due to patient leaving prior to being seen by health care provider (principal)

== ENCOUNTER 2024-09-19 17:57 | Emergency (ER) | payer MEDICARE, MEDICAID, SELFPAY ==
[2024-09-19 17:58] VITALS: BP 121/88; PULSE 99; RESP 18; TEMP 36.4; O2SAT 99; BMI 24.5
--- NOTE | 2024-09-19 18:24 | RAD_ITS ---
EXAM: XR CHEST, 2 VIEWS CLINICAL INDICATION: Cough, productive and hemoptysis TECHNIQUE: Frontal and lateral views of the chest. COMPARISON: 08/20/2024 FINDINGS: LUNGS AND PLEURAL SPACES: Unremarkable. No consolidation or edema. No pneumothorax. No effusion. HEART: Unremarkable. Cardiac silhouette not enlarged. MEDIASTINUM: Central airways and mediastinal contour are unremarkable. BONES/JOINTS: Unremarkable. No acute fracture. SOFT TISSUES: Unremarkable. RAD/Chest PA and Lateral IMPRESSION: No radiographic evidence of acute cardiopulmonary disease. Electronically Signed: Derrek Shepard MD at 18:56 EST ,
--- NOTE | 2024-09-19 20:05 | EX.ED.DYSGE1 ---
HPI History of Present Illness Chief Complaint: Cold Sx Detail of Chief Complaint: Productive cough with hemoptysis Informant: patient Onset/Context/Timing Onset: Weeks (Onset of illness 2 weeks ago) Context: Sudden Onset Timing: Continuous Quality: Upper respiratory symptoms with colored sputum and streaks of blood Location: Upper respiratory Current Severity: Mild Maximum Severity: Moderate Worsened by: Nothing specific Relieved by: Nothing Associated Symptoms Associated Symptoms: Rhinorrhea, congestion Narrative Narrative: Patient is a 39-year-old male. He does have history of smoking. He presents with upper respiratory symptoms started 2 weeks ago. He states he has had blood streaks noted in the sputum. He has not had any blood recently. He presents because he has been sick for 2 weeks. He does endorse rhinorrhea and congestion. He also endorses sore throat. He denies headache, visual, ocular auditory symptoms. He denies leg pain, swelling discoloration. He has no history of VTE. He has no risk factors for VTE. He denies abdominal pain, nausea, vomit or diarrhea. He denies myalgias, arthralgias or joint swelling. Furthermore he denies rash. Prior similar symptoms: Yes Recent Illness/Hospitalization: No [facility] Medical History Acute sinusitis, unspecified Pancreatitis Chronic GERD Tobacco use Anxiety Home Medications ?Medication ?Instructions ?Recorded ?Last Taken ?Type buspirone 5 mg tablet 10 mg PO TID PRN Anxiety 06/10/17 Unknown History famotidine 40 mg tablet (Pepcid) 40 mg PO QHS 06/10/17 Unknown History quetiapine 25 mg tablet 25 mg PO TID 06/28/21 Unknown History ondansetron 4 mg disintegrating 4 mg PO Q8H PRN PRN Nausea #10 tabs 12/25/23 Unknown Rx tablet famotidine 20 mg tablet 20 mg PO BID 30 days #60 tabs 06/16/24 Unknown Rx sulfamethoxazole 800 1 tab PO BID #6 TABLETS 07/04/24 Unknown Rx mg-trimethoprim 160 mg tablet doxycycline monohydrate 100 mg 100 mg PO BID #14 CAPSULES 09/19/24 Unknown Rx capsule Allergy/AdvReac Type Severity Reaction Status Date / Time Penicillins Allergy Unknown Verified 09/19/24 17:58 sumatriptan (From Imitrex) Allergy Unknown Verified 09/19/24 17:58 sumatriptan succinate (From Allergy Unknown Verified 09/19/24 17:58 Imitrex) amoxicillin (Amoxicillin) AdvReac Nausea/Vom/ Verified 09/19/24 17:58 Diarrhea Surgical History History of herniorrhaphy No significant past surgical history Social History household members: family Smoking Status: Current every day smoker tobacco type: cigarettes and e-cigarettes Smokeless tobacco user: chewing tobacco how long ago did patient quit smoking: Former cigarette tobacco use, now chew tobacco 2-3 wads daily. alcohol intake: never details: Patient states he currently is not drinking any alcoholic beverages substance use type: does not use ROS ROS ED Constitutional Constitutional ED: Reports fever(s) and subjective; Denies chills, sweats or weight loss Eyes Eyes: Denies blurry vision, change in vision or diplopia ENT ENT ED: Reports rhinorrhea and sore throat; Denies ear pain Cardiovascular Cardiovascular: Denies chest pain, orthopnea, palpitations, paroxysmal nocturnal dyspnea or racing heartbeat Respiratory/Chest Respiratory/Chest: Reports cough, dyspnea and sputum; Denies dyspnea on exertion, orthopnea or paroxysmal nocturnal dyspnea Gastrointestinal Gastrointestinal: Denies abdominal pain, diarrhea, nausea or vomiting Genitourinary Genitourinary ED: Denies dysuria, hematuria or urinary frequency Musculoskeletal Musculoskeletal: Denies arthralgias or myalgias Integumentary Denies rash Neurologic Neurologic: Denies paresthesias or weakness Endocrine Endocrinology: Denies cold intolerance or heat intolerance Hematologic/Lymphatic Hematologic/Lymphatic: Reports systems reviewed and no addt'l complaints, except as documented EXAM Physical Exam Const Vital Signs: 09/19/24 17:58 09/19/24 18:06 Temperature 97.6 F L Temperature Source Temporal Pulse Rate 99 Respiratory Rate 18 Respiratory Pattern Normal Blood Pressure 121/88 H Blood Pressure Mean 99 Pulse Ox 99 Oxygen Delivery Method Room Air Positive well nourished and well developed Constitutional Narrative: Patient appears ill but not toxic. General Appearance ED: well developed and NAD; Negative for cyanotic, diaphoretic or pallor HEENT Reports moist mucous membranes HEENT Narrative: Patient has clear to white drainage from right and left naris. Posterior pharynx is unremarkable. Uvula is midline. There is no deviation with protrusion. Ears normal. TMs normal. Eyes PERRL and EOMs intact bilaterally General Eye ED: Negative for pale conjunctiva or scleral icterus Neck no lymphadenopathy, supple and no JVD Chest Wall inspection of chest normal and palpation of chest normal Resp normal respiratory effort and clear to auscultation bilaterally Cardio regular rate, regular rhythm, S1 normal heart sound, S2 normal heart sound and no murmurs GI normal to inspection, nondistended, normoactive bowel sounds, non-tender, non-distended and no masses; Negative for hepatosplenomegaly Extremity normal to inspection Extremity Narrative: There is no asymmetry, swelling, discoloration, leg vein distention, palpable cords or tenderness along the distribution of the deep venous system. General Extremety ED: Negative for edema or tenderness General Extremity: Negative for edema Neuro oriented x3 and CN's II-XII intact bilaterally Sensorium / Orientation: alert Psych mental status grossly normal Skin no rashes or lesions noted, no wounds and skin turgor normal General Skin Exam: Negative for jaundice or pallor MDM MDM MDM Narrative Medical decision making narrative: Patient with viral-like symptoms. Since he has blood noted in sputum will obtain chest x-ray. There is no concern for pulmonary embolus. Patient's history and physical is consistent with a viral upper respiratory infection. Suspect the hemoptysis is due to his coughing. Radiography Chest X-Ray - ED: 2 View, Read by ED Physician, Normal, Heart, Lungs, Mediastinum, Bony Structures and No Acute Disease Diagnostic Testing: Clinical Impression(s) from Imaging Studies Chest X-Ray 09/19/24 18:24 IMPRESSION: No radiographic evidence of acute cardiopulmonary disease. Electronically Signed: Derrek Shepard MD at 18:56 EST , Differential Diagnosis Chest pain/SOB: pulmonary embolism Reason(s) PE less likely: Positive for Well's <3, not tachycardic and not hypoxic, pneumothorax Reason(s) pneumothorax less likely: Positive for bilateral breath sounds and PATIENT SITTER withhout PTX and pneumonia Reason(s) pneumonia less likely: Positive for no infiltrate on CXR Treatment and Re-Evaluation :: Patient was treated with doxycycline since has had symptoms for 2 weeks and is a smoker. Discharge Plan Triage Chief Complaint: Cold Sx ED Provider: Michel Stephenson Dx/Rx/DC Orders Clinical Impression: Bronchitis, Cough with hemoptysis Instructions: ED Upper Resp Infec Abx Tx Prescriptions: New doxycycline monohydrate 100 mg capsule 100 mg PO BID Qty: 14 0RF No Action buspirone 5 MG tablet 10 mg PO TID PRN (Reason: Anxiety) famotidine [Pepcid] 40 MG tablet 40 mg PO QHS quetiapine 25 mg tablet 25 mg PO TID ondansetron [ondansetron] 4 mg tablet,disintegrating 4 mg PO Q8H PRN PRN (Reason: Nausea) Qty: 10 0RF famotidine 20 mg tablet 20 mg PO BID 30 Days Qty: 60 1RF sulfamethoxazole-trimethoprim 800-160 mg tablet 1 tab PO BID Qty: 6 0RF Primary Care Provider: Care Physician,No Primary Referrals: Care Physician,No Primary [Primary Care Provider] - Doctor,Your [Non-Staff] - Print Language: Turkish
[2024-09-19 20:29] VITALS: BP 121/88; PULSE 99; RESP 18; TEMP 36.4; O2SAT 99
== END 2024-09-19 20:30 | disposition home or self-care (01) ==
PROVIDERS: Emergency Provider Emergency Medicine; Visit Provider Emergency Medicine
DX: J40 Bronchitis, not specified as acute or chronic (principal); R04.2 Hemoptysis; F17.210 Nicotine dependence, cigarettes, uncomplicated; F17.290 Nicotine dependence, other tobacco product, uncomplicated
CPT/HCPCS: 71046; 99282

== ENCOUNTER 2024-10-13 14:50 | Emergency (ER) | payer MEDICARE, MEDICAID, SELFPAY ==
[2024-10-13 14:51] VITALS: BP 118/102; PULSE 97; RESP 15; TEMP 36.4; O2SAT 98; BMI 22.8
--- NOTE | 2024-10-13 15:04 | EX.ED.DYSGE1 ---
HPI <LATOYA Little - Last Filed: 10/13/24 15:11> History of Present Illness Chief Complaint: Cough Narrative Narrative: 39-year-old male presents with few days of nasal congestion and bilateral ear discomfort. He states use peroxide in his ear is in the right one feels better but the left one still has some discomfort. His nose was very dry and he had a nosebleed a week ago send has been putting Vaseline in both nostrils and has had no recurrence of bleeding. He denies fever chills, chest pain or shortness of breath, or cough. He states part of the problem could be he stopped taking his cetirizine for allergies. [facility] <LATOYA Little - Last Filed: 10/13/24 15:11> [facility] Medical History Acute sinusitis, unspecified Pancreatitis Chronic GERD Tobacco use Anxiety Home Medications ?Medication ?Instructions ?Recorded ?Last Taken ?Type buspirone 5 mg tablet 10 mg PO TID PRN Anxiety 06/10/17 Unknown History famotidine 40 mg tablet (Pepcid) 40 mg PO QHS 06/10/17 Unknown History quetiapine 25 mg tablet 25 mg PO TID 06/28/21 Unknown History ondansetron 4 mg disintegrating 4 mg PO Q8H PRN PRN Nausea #10 tabs 12/25/23 Unknown Rx tablet famotidine 20 mg tablet 20 mg PO BID 30 days #60 tabs 06/16/24 Unknown Rx sulfamethoxazole 800 1 tab PO BID #6 TABLETS 07/04/24 Unknown Rx mg-trimethoprim 160 mg tablet doxycycline monohydrate 100 mg 100 mg PO BID #14 CAPSULES 09/19/24 Unknown Rx capsule guaifenesin 1,200 mg tablet, 1,200 mg PO BID PRN congestion 7 10/13/24 Unknown Rx extended release 12 hr (Mucinex) days #14 tabs Allergy/AdvReac Type Severity Reaction Status Date / Time Penicillins Allergy Unknown Verified 10/13/24 14:51 sumatriptan (From Imitrex) Allergy Unknown Verified 10/13/24 14:51 sumatriptan succinate (From Allergy Unknown Verified 10/13/24 14:51 Imitrex) amoxicillin (Amoxicillin) AdvReac Nausea/Vom/ Verified 10/13/24 14:51 Diarrhea Surgical History History of herniorrhaphy No significant past surgical history Social History household members: family Smoking Status: Current every day smoker tobacco type: cigarettes and e-cigarettes Smokeless tobacco user: chewing tobacco how long ago did patient quit smoking: Former cigarette tobacco use, now chew tobacco 2-3 wads daily. alcohol intake: never details: Patient states he currently is not drinking any alcoholic beverages substance use type: does not use ROS <LATOYA Little - Last Filed: 10/13/24 15:11> ROS ED ROS Narrative Constitutional: Negative for fever, chills, malaise. ENT: Positive for congestion and rhinorrhea. Respiratory: Negative for shortness of breath, cough. GI: Negative for nausea, vomiting, diarrhea. Neuro: Negative for headache. EXAM <LATOYA Little - Last Filed: 10/13/24 15:11> Physical Exam Narrative Exam Narrative: CONST: Patient sitting in no acute distress. EYES: Normal inspection. ENT: Patient has Vaseline in both naris. Normal posterior oropharynx, normal TMs bilaterally. NECK: Normal inspection. No lymphadenopathy. RESP: No respiratory distress, CTAB. CVS: Regular rate and rhythm, no murmur, no gallop. SKIN: Color normal, no rash, warm, dry, intact. EXTREMITIES: Normal appearance, no pedal edema. NEURO: Alert and answering questions appropriately. PSYCH: Normal affect. Const Vital Signs: 10/13/24 14:51 10/13/24 15:16 Temperature 97.5 F L Temperature Source Temporal Pulse Rate 97 Respiratory Rate 15 Respiratory Effort Normal Respiratory Depth Normal Respiratory Pattern Normal Blood Pressure 118/102 H Blood Pressure Mean 107 Pulse Ox 98 Oxygen Delivery Method Room Air <Dr. Antwan Esparza DO - Last Filed: 10/13/24 16:28> Physical Exam Const Vital Signs: 10/13/24 14:51 10/13/24 15:16 Temperature 97.5 F L Temperature Source Temporal Pulse Rate 97 Respiratory Rate 15 Respiratory Effort Normal Respiratory Depth Normal Respiratory Pattern Normal Blood Pressure 118/102 H Blood Pressure Mean 107 Pulse Ox 98 Oxygen Delivery Method Room Air MDM <LATOYA Little - Last Filed: 10/13/24 15:11> [facility] Narrative Medical decision making narrative: 39-year-old male was evaluated for rhinorrhea and nasal congestion. He appears well and nontoxic. Afebrile and hemodynamically stable. His HEENT exam is benign. There are no signs of bacterial infections requiring antibiotics such as acute otitis media, strep pharyngitis, meningitis or pneumonia. I recommended he restart his cetirizine and I prescribed Mucinex. He was discharged in stable condition. <Dr. Antwan Esparza, - Last Filed: 10/13/24 16:28> [facility] Narrative Medical decision making narrative: 39-year-old male was evaluated for rhinorrhea and nasal congestion. He appears well and nontoxic. Afebrile and hemodynamically stable. His HEENT exam is benign. There are no signs of bacterial infections requiring antibiotics such as acute otitis media, strep pharyngitis, meningitis or pneumonia. I recommended he restart his cetirizine and I prescribed Mucinex. He was discharged in stable condition. Attending note: I have personally performed a face to face assessment of the patient and have reviewed the AIMEE note. I personally made/approved the management plan and take responsibility for the patient management. I performed a substantive portion of the visit including all aspects of the following. My dominguez findings include: Rhinorrhea there nasal congestion for months after he stopped his cetirizine. No fevers. No cough. Exam normal TMs no posterior pharyngeal erythema. There is petroleum jelly which when she placed around his naris. There is no swollen turbinates. Discussed with patient we will restart his to Terrazine he is prescribed Mucinex. Outpatient follow-up. Discharge Plan Triage Chief Complaint: Cough ED Midlevel Provider: Fatuma Landry ED Provider: Antwan Esparza Dx/Rx/DC Orders Clinical Impression: Allergic rhinitis Instructions: ED URI, Viral, No Abx (Adult), Allergy Overview Prescriptions: New guaifenesin [Mucinex] 1,200 mg tablet extended release 12hr 1,200 mg PO BID PRN (Reason: congestion) 7 Days Qty: 14 0RF No Action buspirone 5 MG tablet 10 mg PO TID PRN (Reason: Anxiety) famotidine [Pepcid] 40 MG tablet 40 mg PO QHS quetiapine 25 mg tablet 25 mg PO TID doxycycline monohydrate 100 mg capsule 100 mg PO BID Qty: 14 0RF ondansetron [ondansetron] 4 mg tablet,disintegrating 4 mg PO Q8H PRN PRN (Reason: Nausea) Qty: 10 0RF famotidine 20 mg tablet 20 mg PO BID 30 Days Qty: 60 1RF sulfamethoxazole-trimethoprim 800-160 mg tablet 1 tab PO BID Qty: 6 0RF Primary Care Provider: Care Physician,No Primary Referrals: Care Physician,No Primary [Primary Care Provider] - Activity Restrictions/Additional Instructions: I recommend you restart cetirizine for allergies. I prescribed Mucinex for your phlegm and congestion. Follow-up with your primary care doctor. Print Language: Malay Disposition Disposition: Home, Self Care Discharge Date/Time: 10/13/24 15:24
== END 2024-10-13 15:24 | disposition home or self-care (01) ==
LOC: ED 15:21
PROVIDERS: Emergency Provider Emergency Medicine; Visit Provider Emergency Medicine
DX: J30.9 Allergic rhinitis, unspecified (principal); F17.210 Nicotine dependence, cigarettes, uncomplicated; F17.290 Nicotine dependence, other tobacco product, uncomplicated
CPT/HCPCS: 99282

== ENCOUNTER 2024-12-06 12:33 | Emergency (ER) | payer MEDICARE, MEDICAID, SELFPAY ==
[2024-12-06 12:34] VITALS: BP 130/95; PULSE 86; RESP 15; TEMP 36.4; O2SAT 97; BMI 22.0
--- NOTE | 2024-12-06 14:11 | EX.ED.VIS.UR ---
HPI HPI - URI History of Present Illness Chief Complaint: Other, Pain/Inj Informant: patient Onset/Context/Timing Onset: Weeks Context: Gradual Onset Timing: Continuous Current Severity: Mild Maximum Severity: Mild Associated Symptoms Associated Symptoms: Positive for Nasal Congestion and Sinus Pressure Narrative Narrative: Healthy 39-year-old male history of anxiety. States has had nasal congestion and drainage for weeks. He has had some nasal and sinus discomfort. Believes was his green nasal drainage is having a small amount of blood. Is concerned he might have a sinus infection. Denies any significant cough or shortness of breath. No fever. Prior similar symptoms: Yes Recent Illness/Hospitalization: No ROS ROS ED ROS Narrative Nasal congestion. Sinus pain. Nasal drainage. Constitutional Constitutional ED: Denies chills or fever(s) Eyes Eyes: Denies blurry vision ENT ENT ED: Reports rhinorrhea; Denies ear pain Cardiovascular Cardiovascular: Denies chest pain Respiratory/Chest Respiratory/Chest: Denies cough or dyspnea Gastrointestinal Gastrointestinal: Denies abdominal pain Genitourinary Genitourinary ED: Denies dysuria or hematuria Musculoskeletal Musculoskeletal: Denies arthralgias or back pain Integumentary Denies abscess or Abrasions Neurologic Neurologic: Denies headache(s) Psychiatric Psychiatric: Denies anxiety or depression Endocrine Endocrinology: Denies cold intolerance or heat intolerance Hematologic/Lymphatic Hematologic/Lymphatic: Denies easy bleeding, easy bruising or lymphadenopathy Allergic/Immunologic Allergic/Immunologic ED: Denies mouth swelling, tongue swelling or urticaria [facility] Medical History Acute sinusitis, unspecified Pancreatitis Chronic GERD Tobacco use Anxiety Home Medications ?Medication ?Instructions ?Recorded ?Last Taken ?Type buspirone 5 mg tablet 10 mg PO TID PRN Anxiety 06/10/17 Unknown History famotidine 40 mg tablet (Pepcid) 40 mg PO QHS 06/10/17 Unknown History quetiapine 25 mg tablet 25 mg PO TID 06/28/21 Unknown History ondansetron 4 mg disintegrating 4 mg PO Q8H PRN PRN Nausea #10 tabs 12/25/23 Unknown Rx tablet famotidine 20 mg tablet 20 mg PO BID 30 days #60 tabs 06/16/24 Unknown Rx sulfamethoxazole 800 1 tab PO BID #6 TABLETS 07/04/24 Unknown Rx mg-trimethoprim 160 mg tablet doxycycline monohydrate 100 mg 100 mg PO BID #14 CAPSULES 09/19/24 Unknown Rx capsule guaifenesin 1,200 mg tablet, 1,200 mg PO BID PRN congestion 7 10/13/24 Unknown Rx extended release 12 hr (Mucinex) days #14 tabs azithromycin 250 mg tablet See Rx Instructions PO .COMPLEX #6 12/06/24 Unknown Rx (Zithromax Z-Phillip) tabs Allergy/AdvReac Type Severity Reaction Status Date / Time Penicillins Allergy Unknown Verified 12/06/24 12:36 sumatriptan (From Imitrex) Allergy Unknown Verified 12/06/24 12:36 sumatriptan succinate (From Allergy Unknown Verified 12/06/24 12:36 Imitrex) amoxicillin (Amoxicillin) AdvReac Nausea/Vom/ Verified 12/06/24 12:36 Diarrhea Surgical History History of herniorrhaphy No significant past surgical history Social History household members: family Smoking Status: Current every day smoker tobacco type: cigarettes and e-cigarettes Smokeless tobacco user: chewing tobacco how long ago did patient quit smoking: Former cigarette tobacco use, now chew tobacco 2-3 wads daily. alcohol intake: never details: Patient states he currently is not drinking any alcoholic beverages substance use type: does not use EXAM Physical Exam Narrative Exam Narrative: Well-appearing 39-year-old male sitting upright in chair in the hallway due to current volume and acuity. Vital signs are stable afebrile. Pulse ox is 97% on room air no signs of hypoxia. No distress. H EENT exam pupils are unreactive to light. Posterior pharynx unremarkable. He has mild frontal maxillary sinus tenderness. Nasal congestion. Currently no blood or bleeding. Neck nontender no meningismus. No lymphadenopathy. Lungs clear to auscultation bilaterally. Heart regular rhythm rate about 80 no murmur. Chest wall and ribs nontender. Abdomen soft nontender. Moving all 4 extremities. Normal strength. Nontender no edema. Back nontender. Neurologically is awake and alert no focal motor deficits. Benign exam. Const Vital Signs: 12/06/24 12:34 12/06/24 13:33 Temperature 97.6 F L Temperature Source Temporal Pulse Rate 86 Respiratory Rate 15 Respiratory Effort Normal Blood Pressure 130/95 H Blood Pressure Mean 106 Pulse Ox 97 Oxygen Delivery Method Room Air Positive well nourished and well developed; Negative for obese, cachectic or contractures General Appearance ED: well developed and NAD; Negative for cachectic, contractures, cyanotic, diaphoretic or pallor Nutritional Appearance: Negative for cachectic or obese HEENT Reports moist mucous membranes normocephalic and atraumatic Face and Sinus: sinus tenderness Throat: posterior oropharynx normal Eyes PERRL and EOMs intact bilaterally General Eye ED: Negative for pale conjunctiva or scleral icterus Neck no lymphadenopathy, supple, no meningeal signs and no JVD General: Negative for anterior neck swelling or lymphadenopathy Resp normal respiratory effort and clear to auscultation bilaterally Cardio S1 normal heart sound, S2 normal heart sound and no murmurs Rate: regular rate Rhythm: regular rhythm GI non-tender, non-distended and no masses Palpation: soft; Negative for tender, guarding or mass Back/Spine no CVA tenderness and normal ROM Extremity normal to inspection and full ROM Neuro oriented x3 and CN's II-XII intact bilaterally Sensorium / Orientation: alert, oriented to person, oriented to place and oriented to time; Negative for orientation impaired, lethargic or stuporous Motor Exam: strength 5/5 throughout Psych mental status grossly normal Attitude: No agitated Mood & Affect: Negative for depressed, anxious or tearful Skin General Skin Exam: Negative for jaundice or pallor Lesions: no lesions Rashes: no rashes MDM MDM MDM Narrative Medical decision making narrative: 39-year-old male with nasal congestion, drainage and pressure. Will be started on Zithromax due to possible sinusitis. He had symptoms for weeks. He does not need any imaging. His lungs are clear. Discharge Plan Triage Chief Complaint: Other, Pain/Inj ED Provider: Marco Antonio Cintron Dx/Rx/DC Orders Clinical Impression: Acute sinusitis, unspecified Instructions: ED Sinusitis (Antibiotic Treatment) Prescriptions: New azithromycin [Zithromax Z-Phillip] 250 mg tablet See Rx Instructions .ROUTE .COMPLEX Qty: 6 0RF Rx Instructions: For 250 mg dose pack: take 500 mg today (day 1), then 250 mg for 4 days (days 2-5) No Action buspirone 5 MG tablet 10 mg PO TID PRN (Reason: Anxiety) famotidine [Pepcid] 40 MG tablet 40 mg PO QHS quetiapine 25 mg tablet 25 mg PO TID doxycycline monohydrate 100 mg capsule 100 mg PO BID Qty: 14 0RF ondansetron [ondansetron] 4 mg tablet,disintegrating 4 mg PO Q8H PRN PRN (Reason: Nausea) Qty: 10 0RF famotidine 20 mg tablet 20 mg PO BID 30 Days Qty: 60 1RF sulfamethoxazole-trimethoprim 800-160 mg tablet 1 tab PO BID Qty: 6 0RF guaifenesin [Mucinex] 1,200 mg tablet extended release 12hr 1,200 mg PO BID PRN (Reason: congestion) 7 Days Qty: 14 0RF Primary Care Provider: Care Physician,No Primary Referrals: Care Physician,No Primary [Primary Care Provider] - Activity Restrictions/Additional Instructions: Take the antibiotic, Zithromax, as prescribed. Follow-up with your doctor if not improving. Print Language: Thai Disposition Disposition: Home, Self Care
== END 2024-12-06 14:20 | disposition home or self-care (01) ==
PROVIDERS: Emergency Provider Emergency Medicine; Visit Provider Emergency Medicine
DX: J01.90 Acute sinusitis, unspecified (principal); F17.210 Nicotine dependence, cigarettes, uncomplicated; F17.290 Nicotine dependence, other tobacco product, uncomplicated
CPT/HCPCS: 99284

== ENCOUNTER 2025-03-19 00:41 | Emergency (ER) | payer MEDICARE, MEDICAID, SELFPAY ==
[2025-03-19 00:42] VITALS: BP 132/89; PULSE 91; RESP 18; TEMP 37.2; O2SAT 96; BMI 23.9
--- NOTE | 2025-03-19 01:06 | ED.VIS.GI ---
HPI HPI - GI History of Present Illness Chief Complaint: Nausea/Vomiting Informant: patient Nausea/Vomiting/Emesis GI Symptom: Positive for Nausea and Vomiting Onset: Today Severity: Mild Diarrhea/Melena/Hematochezia GI Symptom: Negative for Diarrhea, Melena or Hematochezia Associated Symptoms Associated Symptoms: Negative for Dysuria, Frequency, Hematuria or Urgency Narrative Narrative: 39-year-old male nausea and vomiting today. No diarrhea. No hematemesis. No melena. No abdominal pain. History of prior reflux pancreatitis. Really denies any significant abdominal pain. No fever. No dysuria. Prior similar symptoms: Yes Recent [facility] Medical History Acute sinusitis, unspecified Pancreatitis Chronic GERD Tobacco use Anxiety Home Medications ?Medication ?Instructions ?Recorded ?Last Taken ?Type buspirone 5 mg tablet 10 mg PO TID PRN Anxiety 06/10/17 Unknown History famotidine 40 mg tablet (Pepcid) 40 mg PO QHS 06/10/17 Unknown History quetiapine 25 mg tablet 25 mg PO TID 06/28/21 Unknown History ondansetron 4 mg disintegrating 4 mg PO Q8H PRN PRN Nausea #10 tabs 12/25/23 Unknown Rx tablet famotidine 20 mg tablet 20 mg PO BID 30 days #60 tabs 06/16/24 Unknown Rx sulfamethoxazole 800 1 tab PO BID #6 TABLETS 07/04/24 Unknown Rx mg-trimethoprim 160 mg tablet doxycycline monohydrate 100 mg 100 mg PO BID #14 CAPSULES 09/19/24 Unknown Rx capsule guaifenesin 1,200 mg tablet, 1,200 mg PO BID PRN congestion 7 10/13/24 Unknown Rx extended release 12 hr (Mucinex) days #14 tabs azithromycin 250 mg tablet See Rx Instructions PO .COMPLEX #6 12/06/24 Unknown Rx (Zithromax Z-Phillip) tabs ondansetron 4 mg disintegrating 4 mg PO Q6H PRN nausea and 03/19/25 Unknown Rx tablet vomiting #7 tabs Allergy/AdvReac Type Severity Reaction Status Date / Time Penicillins Allergy Unknown Verified 12/06/24 12:36 sumatriptan (From Imitrex) Allergy Unknown Verified 12/06/24 12:36 sumatriptan succinate (From Allergy Unknown Verified 12/06/24 12:36 Imitrex) amoxicillin (Amoxicillin) AdvReac Nausea/Vom/ Verified 12/06/24 12:36 Diarrhea Surgical History History of herniorrhaphy No significant past surgical history Social History household members: family Smoking Status: Current every day smoker tobacco type: cigarettes and e-cigarettes Smokeless tobacco user: chewing tobacco how long ago did patient quit smoking: Former cigarette tobacco use, now chew tobacco 2-3 wads daily. alcohol intake: never details: Patient states he currently is not drinking any alcoholic beverages substance use type: does not use ROS ROS ED ROS Narrative Nausea and vomiting. Constitutional Constitutional ED: Denies chills or fever(s) ENT ENT ED: Denies ear pain Cardiovascular Cardiovascular: Denies chest pain Respiratory/Chest Respiratory/Chest: Denies cough or dyspnea Gastrointestinal Gastrointestinal: Reports nausea and vomiting; Denies abdominal pain, diarrhea or melena Genitourinary Genitourinary ED: Denies dysuria or hematuria Musculoskeletal Musculoskeletal: Denies arthralgias Integumentary Denies abscess Neurologic Neurologic: Denies headache(s) Psychiatric Psychiatric: Denies anxiety Endocrine Endocrinology: Denies polydipsia Hematologic/Lymphatic Hematologic/Lymphatic: Denies easy bleeding Allergic/Immunologic Allergic/Immunologic ED: Denies mouth swelling, tongue swelling or urticaria EXAM Physical Exam Narrative Exam Narrative: Well-appearing 39-year-old male. Vital signs stable afebrile. H EENT exam pupils round react light. Moist mucous membranes. Neck nontender no JVD. No lymphadenopathy. Lungs clear to auscultation bilaterally. Heart regular rhythm rate about 90 no murmur. Chest wall ribs nontender. Abdomen soft nontender. Nondistended normal bowel sounds without peritoneal signs. No right upper or right lower quadrant tenderness. No distention or obstruction. No hernia or mass. Very benign abdominal exam. Moving all 4 extremities. Nontender no edema. Normal range of motion. Normal strength. Neurologically is awake alert. Answer questions following commands. Back nontender. Const Vital Signs: 03/19/25 00:42 Temperature 98.9 F Temperature Source Oral Pulse Rate 91 Respiratory Rate 18 Blood Pressure 132/89 H Blood Pressure Mean 103 Pulse Ox 96 Oxygen Delivery Method Room Air Positive well nourished and well developed; Negative for obese, cachectic, contractures or unkempt General Appearance ED: well developed and NAD; Negative for unkempt, cachectic, contractures or pallor Nutritional Appearance: Negative for cachectic or obese HEENT Reports moist mucous membranes normocephalic and atraumatic; Negative for trauma or tenderness Eyes PERRL and EOMs intact bilaterally General Eye ED: Negative for pale conjunctiva or scleral icterus Neck no lymphadenopathy, supple and no JVD General: Negative for tenderness Carotids: Negative for other Resp normal respiratory effort and clear to auscultation bilaterally Effort and Inspection: Negative for respiratory distress Auscultation: Negative for rales, rhonchi or wheezes Cardio regular rate, regular rhythm, S1 normal heart sound and S2 normal heart sound GI non-tender, non-distended and no masses Inspection: Negative for abdominal distention Auscultation: normoactive bowel sounds Palpation: soft; Negative for tender, guarding, rigid, hepatomegaly, splenomegaly, hernia, mass, pulsatile mass or rebound tenderness present Back/Spine no CVA tenderness General Back: Negative for CVA tenderness Cervical Spine: Negative for cervical spine tenderness Thoracic Spine / Upper Back: Negative for thoracic spinal tenderness Lumbar Spine / Lower Back: Negative for lumbar spinal tenderness Coccyx: Negative for other Extremity full ROM General Extremety ED: Negative for edema or tenderness General Extremity: Negative for edema Neuro CN's II-XII intact bilaterally and moves all extremities Sensorium / Orientation: alert, oriented to person, oriented to place and oriented to time; Negative for orientation impaired or confused Motor Exam: strength 5/5 throughout Psych mental status grossly normal and thought process normal Appearance: Negative for unkempt Skin no wounds General Skin Exam: Negative for jaundice or pallor Lesions: no lesions Rashes: no rashes Trauma: Negative for abrasion Nails: Negative for discolored MDM MDM MDM Narrative Medical decision making narrative: 39-year-old male with nausea vomiting exam benign. He does not look dehydrated. Will be given p.o. Zofran and p.o. fluid challenge. His abdomen is nontender he does not need any imaging. I do not feel he needs any labs. Patient is well-known to this emergency department. If he can hold down p.o. fluids he will be discharged with a prescription for Zofran. History & Record Review Discussion w/independent historian: Patient Additional record(s) reviewed:: Prior inpatient record, Prior outpatient record, Prior ED visit and Prior labs Discharge Plan Triage Chief Complaint: Nausea/Vomiting ED Provider: Marco Antonio Cintron Dx/Rx/DC Orders Clinical Impression: Nausea & vomiting Instructions: ED Vomiting (Adult) Prescriptions: New ondansetron 4 mg tablet,disintegrating 4 mg PO Q6H PRN (Reason: nausea and vomiting) Qty: 7 0RF No Action buspirone 5 MG tablet 10 mg PO TID PRN (Reason: Anxiety) famotidine [Pepcid] 40 MG tablet 40 mg PO QHS quetiapine 25 mg tablet 25 mg PO TID doxycycline monohydrate 100 mg capsule 100 mg PO BID Qty: 14 0RF azithromycin [Zithromax Z-Phillip] 250 mg tablet See Rx Instructions .ROUTE .COMPLEX Qty: 6 0RF Rx Instructions: For 250 mg dose pack: take 500 mg today (day 1), then 250 mg for 4 days (days 2-5) ondansetron [ondansetron] 4 mg tablet,disintegrating 4 mg PO Q8H PRN PRN (Reason: Nausea) Qty: 10 0RF famotidine 20 mg tablet 20 mg PO BID 30 Days Qty: 60 1RF sulfamethoxazole-trimethoprim 800-160 mg tablet 1 tab PO BID Qty: 6 0RF guaifenesin [Mucinex] 1,200 mg tablet extended release 12hr 1,200 mg PO BID PRN (Reason: congestion) 7 Days Qty: 14 0RF Primary Care Provider: Care Physician,No Primary Referrals: Pauline Woodruff MD [Med Staff - Active Staff] - 3-5 Days if not improving Care Physician,No Primary [Primary Care Provider] - Activity Restrictions/Additional Instructions: Zofran as needed for nausea. Plenty of fluids and rest. Follow-up with a local primary care physician if not improving. Print Language: [place] Disposition Disposition: Home, Self Care
[2025-03-19] MEDS: Ondansetron ODT 4 MG Tablet PO (01:19)
--- OUTSIDE RECORDS SUMMARY | 2025-03-19 01:30 | XMS RPT_ITS | CCD ---
Author Organization [facility] CliniSyny Care Team Providers Care Electronic Lab Technician Name Role Phone NANI SANCHEZNEY Colin Unavailable Unavailable ROLAND KUO M Unavailable Unavailable ROLAND KUO M Unavailable Unavailable REBEL HERNÁNDEZ W Unavailable Unavailable KUO, ROLAND M Unavailable Unavailable KUO, ROLAND M Unavailable Unavailable JOSSY MURILLO Referring Unavailable JOSSY MURILLO Attending Unavailable JOSSY MURILLO Admitting Unavailable Unavailable Primary Care Provider Unavailjovi FRAGA MD, DR NEVAEH Galarza Primary Care Physician Dalton Art DO Primary Care Provider JESSICA LOBO, DR NEVAEH Galarza Primary Care Physician Dalton Art DO Primary Care Provider JESSICA LOBO., DR. NEAVEH Galarza Primary Care Unavail alireza FRAGA MD., DR. NEVAEH Galarza Attending Unavail alireza FRAGA MD., DR. NEVAEH Galarza Attending Unavail alireza FRAGA MD., DR. NEVAEH Galarza Primary Care Unavail alireza FRAGA MD., DR. NEVAEH Galarza Primary Care Unavail able JENNIFER VALLES MD Attending Unavail able ALLI KILGORE, DR. MCKAYLA Oseguera Attending Skip FRAGA MD., DR. NEVAEH Galarza Primary Care Unavail alireza FRAGA MD., DR. NEVAEH Galarza Primary Care Unavail alireza FRAGA MD., DR. NEVAEH Galarza Attending Unavail able Dalton Art DO Primary Care Provider Dalton Art DO Primary Care Provider Stephon SOCK IRONER.TOE LASTER, Vania Unavailable Stone SOCK IRONER.TOE LASTER, Royer Unavailable [phone] DALTON ART Primary Care Unavailable Michel Elena Attending Unavailable Care Physician, No Primary Primary Care Unava ilable Antwan Esparza Attending Unavailable Care Physician, No Primary Primary Care Unava ilable Care Physician, No Primary Primary Care Unava ilable Marco Antonio Cintron Attending Unavailable Nolan Brady Attending Unavailable Care Physician, No Primary Primary Care Unava ilable Provider, Ed Physician Attending Unavail le Care Physician, No Primary Primary Care Unava ilable Andressa Early Attending Unavailable Care Physician, No Primary Primary Care Unava ilable Matt Whatley Attending Unavailable Care Physician, No Primary Primary Care Unava ilable Alan Begum Attending Unavailable Care Physician, No Primary Primary Care Unava ilable Allergies Allergy Classification Reported Allergen(s) Allergy Type Date of Onset Reaction(s) Facility (20 sources) Amoxicillin; Translations: [AMOXICILLIN] Drug Allergy 10-04-19 17 Nausea[facility] ([facility]) Penicillins; Translations: [PENICILLINS] Propensity to adverse reactions to drug (disorder) 07-20-20 14 Vomiting [facility] Repository (20 sources) SUMAtriptan; Translations: [SUMATRIPTAN] Drug Allergy 05-01-20 15 Other: See Comments [facility] Work Phone: (3 sources) Penicillin; Translations: [penicillins] Drug Allergy Rash [facility] (7 sources) Amoxicillin; Translations: [AMOXICILLIN (BULK)] Drug Allergy 11-23-19 15 Vomiting [facility] (14 sources) SUMAtriptan; Translations: [sumatriptan succinate] Drug Allergy 06-24-20 21 Unknown [facility] (3 sources) Sulfamethoxazole / Trimethoprim; Translations: [SULFAMETHOXAZOLE-T RIMETHOPRIM] Drug Allergy 11-19-19 24 Swelling [facility] (1 source) SUMAtriptan Drug Allergy 12-07-19 25 [facility] Repository Medications Current Medications Medication Drug Class(es) Dates Sig (Normalized) Sig (Original) acetaminophen 325 mg oral capsule (6 sources) Start: 06-22-2021 Tylenol 325 mg oral capsule Dose : 650 mg =, Oral, q4h, PRN Pain, scale 1-3, 0 Refill(s) Start Date: 06/22/21 Status: Ordered Start: 06-08-2017 Tylenol Extra Strength 500 mg oral tablet Dose : 1,000 mg = 2 tab(s), Oral, q4h, PRN for fever Start Date: 06/08/17 Status: Ordered acetaminophen 250 mg / aspirin 250 mg / caffeine 65 mg oral tablet (3 sources) Platelet Aggregation Inhibitor, Nonsteroidal Anti-inflammatory Drug, Central Nervous System Stimulant, Methylxanthine Start: 06-08-2017 take 1 tablet by mouth every six hours as needed for headache Excedrin Extra Strength oral tab (250/250/65) Dose = 1 tab(s), Oral, q6h, PRN for headache Start Date: 06/08/17 Status: Ordered [id number] 200 actuat albuterol 0.09 mg/actuat metered dose inhaler (1 source) beta2-Adrenergic Agonist Start: 08-16-2021 albuterol sulfate HFA 108 (90 Base) MCG/ACT inhaler 2 puff Aluminum Hydroxide / Magnesium Hydroxide (1 source) Start: 12-12-2016 take 1 dose by mouth four times daily as needed Maalox Dose = 5 mL, Oral, QID, PRN for indigestion, # 200 mL, 0 Refill(s) Start Date: 12/12/16 Status: Ordered Aluminum Hydroxide / Magnesium Hydroxide / Simethicone (2 sources) Start: 12-12-2016 take 1 dose by mouth four times daily as needed Maalox Dose = 5 mL, Oral, QID, PRN for indigestion, # 200 mL, 0 Refill(s) Start Date: 12/12/16 Status: Ordered busPIRone hydrochloride 15 mg oral tablet (20 sources) Start: 03-23-2022 busPIRone (BUSPAR) 15 mg tablet 03/23/2022 Active Start: 06-27-2017 busPIRone 10 m g oral tablet Dose : 10 mg = 1 tab(s), Oral, TID, # 270 tab(s), 0 Refill(s) Start Date: 06/27/17 Status: Ordered Start: 06-10-2017 take 10 mg by mouth three times daily Buspirone Active 10 MG PO THREE TIMES A DAY June 10, 2017 12:00am cetirizine hydrochloride 10 mg oral tablet (2 sources) Histamine-1 Receptor Antagonist Start: 02-16-2022 End: 03-18-2022 take 1 tablet by mouth once daily cetirizine (ZYRTEC) 10 MG tablet Take 1 tablet by mouth daily 30 tablet 0 02/16/2022 03/18/2022 Active ciprofloxacin 500 mg oral tablet (1 source) Quinolone Antimicrobial Start: 12-19-2021 End: 12-26-2021 Cipro 500 mg oral tablet Dose : 500 mg = 1 tab(s), Oral, q12h, X 7 day(s), # 14 tab(s), 0 Refill(s), 12/26/21 10:17:00 EDT, UTI - Urinary tract infection, 65.8 Start Date: 12/19/21 Stop Date: 12/26/21 Status: Ordered Creon 3000 units oral delayed release capsule (1 source) Start: 06-17-2021 take 1 capsule by mouth three times daily Creon 3000 units oral delayed release capsule 1 cap(s), Oral, TID, # 90 cap(s), 0 Refill(s) Start Date: 06/17/21 Status: Ordered dicyclomine hydrochloride 20 mg oral tablet (20 sources) Anticholinergic Start: 12-06-2021 dicyclomine (BENTYL) 20 mg tablet TAKE 1 TABLET BY MOUTH 2-4 TIMES DAILY 12/06/2021 Active Start: 06-04-2019 take 1 tablet by diamond four times daily as needed Bentyl use dicyclomine Dose : 20 mg =, Oral, QID, PRN abdominal discomfort, # 15 tab(s), 0 Refill(s) Start Date: 06/04/19 Status: Ordered Start: 06-10-2017 End: 12-25-2023 take 20 mg by mouth four times daily as needed Dicyclomine Discontinued 20 MG PO 4 TIMES DAILY NEEDED June 10, 2017 12:00am December 25, 2023 3:45am Comment on above: TAKE 1 TABLET BY DIAMOND 2-4 TIMES DAILY diphenhydrAMINE-maalox- lidocaine (BMX 1:1:1) 1:1:1 liqd (2 sources) Start: 11-19-2023 diphenhydrAMINE-maalox -lidocaine (BMX 1:1:1) 1:1:1 liqd Mix in equal amounts - 1 T every 2hrs as needed for mouth pain, Swish/swallow or expectorate. (8oz) 240 mL 11/19/2023 Active Start: 11-19-2023 diphenhydrAMIN K-jeipid-kntszzxnq (BMX 1:1:1) 1:1:1 liqd Mix in equal amounts - 1 T every 2hrs as needed for mouth pain, Swish/swallow or expectorate. (8oz) 240 mL 0 11/19/2023 Active Comment on above: Mix in equal amounts - 1 T every 2hrs as needed for mouth pain, Swish/swallow or expectorate. (8oz) doxycycline hyclate 100 mg oral tablet (7 sources) Tetracycline-class Drug Start: 4 End: 4 take 1 tablet by mouth twice daily doxycycline (VIBRA-TABS) 100 mg tablet Take 1 tablet by mouth two times a day for 5 days. 10 tablet 0 11/19/2023 11/24/2023 Active Start: 01-03-2023 End: 08-04-2023 take 100 mg by mouth twice daily Doxycycline Monohydrate Discontinued 100 MG PO TWICE A DAY January 03, 2023 12:00am August 04, 2023 3:41pm Comment on above: Take 1 tablet by diamond two times a day for 5 days. famotidine 20 mg oral tablet (20 sources) Histamine-2 Receptor Antagonist Start: 06-22-2021 take 1 tablet by mouth every twenty-four hours as needed famotidine (PEPCID) 20 mg tablet Take 20 mg by mouth at bedtime as needed. 03/18/2022 Active Start: 02-04-2016 End: 06-10-2017 take 1 tablet by mouth at bedtime Famotidine (Pepcid) 40 MG tablet Active 40 MG PO AT BEDTIME June 10, 2017 5:33pm Comment on above: Take 20 mg by mouth at bedtime as needed. fluticasone propionate 0.05 mg/actuat metered dose nasal spray (8 sources) Corticosteroid Start: 2 take 1 spray(s) nasal route twice daily fluticasone (FLONASE ALLERGY RELIEF) 50 mcg/actuation nasal spray Indications: Viral URI with cough Use 1 [place] in each nostril twice daily. 1 Each 10/05/2021 Active Start: 06-27-2017 take 1 dose nasal ro perry twice daily fluticasone 50 mcg/inh NASAL spray Dose = 1 spray(s), Nostril, each, BID, 0 Refill(s) Start Date: 06/27/17 Status: Ordered Comment on above: Use 1 [place] in each nostril twice daily. fluticasone 50 mcg/inh NASAL spray (1 source) Start: 06-27-20 take 1 dose nasal route twice daily fluticasone 50 mcg/inh NASAL spray Dose = 1 spray(s), Nostril, each, BID, 0 Refill(s) Start Date: 06/27/17 Status: Ordered ibuprofen 200 mg oral tablet (8 sources) Nonsteroidal Anti-inflammatory Drug End: 05-02-20 take 4 tablets by mouth every six hours as needed for pain ibuprofen (ADVIL;MOTRIN) 200 MG tablet Take 800 mg by mouth every 6 hours as needed for Pain 0 05/02/2022 Discontinued (LIST CLEANUP) levoFLOXacin 750 mg oral tablet (2 sources) Quinolone Antimicrobial Start: 05-02-20 End: 05-07-20 take 1 tablet by mouth in the morning levoFLOXacin (LEVAQUIN) 750 MG tablet Take 1 tablet by mouth in the morning for 5 days. 5 tablet 0 05/02/2022 05/07/2022 Active loratadine 10 mg oral tablet (20 sources) Start: 08-07-20 End: 12-25-19 24 take 1 tablet by mouth once daily loratadine (CLARITIN) 10 mg tablet Indications: Seasonal allergies Take 1 tablet by mouth once daily. 30 tablet 11 08/07/2015 Active LORATADINE PO Ta ke by mouth 0 Active Comment on above: Take 1 tablet by diamond th once daily. melatonin 10 mg oral capsule (11 sources) Start: 11-13-2016 Melatonin 10 mg oral capsule Dose : 10 mg = 1 cap(s), Oral, qHS, 0 Refill(s) Start Date: 11/13/16 Status: Ordered MELATONIN PO [place] by mouth 0 Active naproxen 500 mg oral tablet (8 sources) Nonsteroidal Anti-inflammatory Drug Start: 08-04-2015 take 1 tablet by mouth every twelve hours as needed naproxen (NAPROSYN) 500 mg tablet Take 1 tablet by mouth twice daily as needed (pain/inflammation, take with food.). 30 tablet 1 08/04/2015 Active Comment on above: Take 1 tablet by mouth twice daily as ne eded (pain/inflammation, take with food.). omeprazole 20 mg delayed release oral capsule (5 sources) Proton Pump Inhibitor Start: 06-29-2021 take 20 mg by mouth once daily Omeprazole Active 20 MG PO DAILY June 29, 2021 12:00am Start: 06-10-2017 omeprazole 40 mg oral delayed release capsule (NF) Dose : 40 mg = 1 cap(s), Oral, qDay, # 30 cap(s), 0 Refill(s) Start Date: 06/10/17 Status: Ordered Pancrelipase, Oey-Cpkl-Gfou, (CREON PO) (8 sources) Pancrelipase, Htl-Suqg-Bkzl, (CREON PO) Take by mouth 0 Active QUEtiapine 25 mg oral tablet (20 sources) Atypical Antipsychotic Start: 06-28-2021 QUEtiapine (SEROQUEL) 25 mg tablet 09/11/2021 Active Start: 01-12-2019 take 25 mg by mouth once daily Quetiapine Active 25 MG PO DAILY June 28, 2021 12:00am Start: 01-12-2019 Quetiapine Act misti June 28, 2021 12:00am sertraline 50 mg oral tablet (3 sources) Serotonin Reuptake Inhibitor Start: 06-27-2017 sertraline 50 mg oral tablet Dose : 50 mg = 1 tab(s), Oral, qDay, # 30 tab(s), 0 Refill(s) Start Date: 06/27/17 Status: Ordered triamcinolone acetonide 0.055 mg/actuat metered dose nasal spray (5 sources) Corticosteroid Start: 02-16-2022 take 2 spray(s) nasal route once daily triamcinolone (NASACORT ALLERGY 24HR) 55 MCG/ACT nasal inhaler 2 sprays by Each Nostril route daily 1 each 3 02/16/2022 Active Completed/Discontinued Medications Medication Drug Class(es) Dates Sig (Normalized) Sig (Original) amylase 10412 unt / lipase 3000 unt / protease 9500 unt delayed release oral capsule (15 sources) Start: 06-17-2021 End: 12-25-2023 take 5717-4375 capsules by mouth three times daily Ybrsry-Hbclgxzg-Vc ylase (Creon) 3,000-9,500- 15,000 unit Capsule,Delayed Release(Dr/Ec) Discontinued 1 CAP PO THREE TIMES A DAY June 29, 2021 12:00am December 25, 2023 3:45am with meals azithromycin 250 mg oral tablet (2 sources) Macrolide Antimicrobial Start: 08-04-2023 End: 12-25-2023 Azithromycin Discontinued 250 MG PO daily August 04, 2023 12:00am December 25, 2023 3:44am 2 tablets today, then 1 tablet daily on days 2 through 11 Start: 03-17-2022 azithromycin ( ZITHROMAX) tablet 2,000 mg benzonatate 100 mg oral capsule (6 sources) Non-narcotic Antitussive Start: 10-05-2021 End: 12-14-2024 take 2 capsules by mouth every eight hours as needed benzonatate (TESSALON PERLES) 100 mg capsule Indications: Viral URI with cough Take 2 capsules by mouth every 8 hours as needed. 60 capsule 10/05/2021 12/14/2024 Discontinued Comment on above: Take 2 capsules by [facility] every 8 hours as needed. chlorhexidine gluconate 1.2 mg/ml mouthwash (6 sources) Start: 07-30-2015 End: 12-14-2024 Chlorhexidine Gluconate (PERIDEX) 0.12 % solution Use 15 mL as instructed twice daily. 60 mL 0 07/30/2015 12/14/2024 Discontinued Comment on above: Use 15 mL as instruc hardik twice daily. clindamycin 150 mg oral capsule (15 sources) Lincosamide Antibacterial Start: 07-09-2013 End: 11-05-2013 take 1 mg by mouth four times daily Clindamycin Hcl Discontinued MG PO 4 TIMES DAILY July 09, 2013 12:00am November 05, 2013 7:43am take 1 capsule by [facility] three times daily clindamycin (CLEOCIN) 300 MG capsule [place] 300 mg by mouth 3 times daily 0 Active esomeprazole 20 mg delayed release oral capsule (16 sources) Proton Pump Inhibitor Start: 09-03-2022 End: 12-25-2023 take 1 capsule by mouth once daily Esomeprazole Magnesium (Nexium) 20 mg capsule,delayed release(DR/EC) Discontinued 20 MG PO DAILY September 03, 2022 1:00am December 25, 2023 3:45am Start: 2015 End: 12-14-2024 take 1 capsule by mouth once daily esomeprazole magnesium (NEXIUM 24HR) 22.3 mg cpDR Take 1 capsule by mouth once daily. 30 capsule 11 2015 12/14/2024 Discontinued Comment on above: Take 1 capsule by mo [facility] once daily. FLUoxetine 20 mg oral capsule (6 sources) Serotonin Reuptake Inhibitor Start: 08-19-20 End: 12-15-19 take 1 capsule by mouth once daily FLUoxetine (PROZAC) 20 mg capsule Indications: Anxiety and depression Take 1 capsule by mouth once daily. 30 capsule 3 08/19/2015 12/14/2024 Discontinued Comment on above: Take 1 capsule by [facility] once daily. hydrOXYzine pamoate 50 mg oral capsule (3 sources) Antihistamine Start: 07-05-20 End: 07-19-20 take 1 capsule by mouth once daily at bedtime for anxiety Vistaril 50 mg oral capsule 1 cap(s), Oral, qHS, for anxiety, X 14 day(s), # 14 cap(s), 0 Refill(s), 07/19/18 22:29:00 EDT Start Date: 07/05/18 Stop Date: 07/19/18 Status: Incomplete iopamidol (ISOVUE-370) 76 % injection 75 mL (1 source) Start: 03-28-20 End: 03-28-20 iopamidol (ISOVUE-370) 76 % injection 75 mL 1 ml ketorolac tromethamine 30 mg/ml cartridge (2 sources) Nonsteroidal Anti-inflammatory Drug, Cyclooxygenase Inhibitor Start: 03-28-20 End: 03-28-20 ketorolac (TORADOL) injection 30 mg Start: 10-04-2021 End: 10-04-2021 ketorolac (TORADOL) injectio n 30 mg lansoprazole 30 mg delayed release oral capsule (6 sources) Proton Pump Inhibitor Start: 12-24-2015 End: 12-14-2024 take 1 capsule by mouth once daily lansoprazole (PREVACID) 30 mg capsule Indications: Gastroesophageal reflux disease without esophagitis Take 1 capsule by mouth once daily. 30 capsule 0 12/24/2015 12/14/2024 Discontinued Comment on above: Take 1 capsule by mo [facility] once daily. lidocaine hydrochloride 20 mg/ml mucous membrane topical solution (4 sources) Antiarrhythmic, Amide Local Anesthetic Start: 07-04-2021 End: 02-16-2022 lidocaine viscous hcl (XYLOCAINE) 2 % SOLN solution Take 15 mLs by mouth as needed for Irritation 100 mL 0 07/04/2021 02/16/2022 Discontinued (LIST CLEANUP) melatonin 10 mg / vitamin b6 10 mg extended release oral tablet (13 sources) Start: 06-10-2017 End: 12-25-2023 Melatonin-Pyridoxine Hcl (B6) Discontinued 1 EACH PO AT BEDTIME June 10, 2017 12:00am December 25, 2023 3:45am ondansetron 4 mg disintegrating oral tablet (20 sources) Serotonin-3 Receptor Antagonist Start: 08-20-2022 End: 12-25-2023 take 4 mg by mouth every eight hours as needed Ondansetron Discontinued 4 MG PO EVERY 8 HOURS NEEDED February 28, 2023 12:00am June 05, 2023 6:49pm Start: 06-10-2017 take 1 tablet by [facility] every eight hours as needed Ondansetron (Zofran Odt) 8 MG tablet,disintegrating Active 8 MG PO EVERY 8 HOURS NEEDED June 10, 2017 12:00am Start: 07-29-2015 End: 12-14-2024 take 1 tablet by mouth every eight hours as needed for nausea and nausea ondansetron (ZOFRAN, HYDROCHLORIDE,) 4 mg tablet Indications: Nausea Take 1 tablet by mouth every 8 hours as needed. 20 tablet 0 07/29/2015 12/14/2024 Discontinued End: 02-16-2022 ondansetron (ZOFRAN-ODT) 4 M G disintegrating tablet Take 1 mg by mouth every 8 hours as needed for Nausea or Vomiting 0 02/16/2022 Discontinued (LIST CLEANUP) Comment on above: Take 1 tablet by [facility] every 8 hours as needed. promethazine hydrochloride 25 mg oral tablet (12 sources) Phenothiazine Start: 09-03-20 End: 06-05-20 take 25 mg by mouth three times daily Promethazine Discontinued 25 MG PO THREE TIMES A DAY September 03, 2022 1:00am June 05, 2023 6:50pm Start: 06-10-2017 take 25 mg by mouth every six hours as needed Promethazine Active 25 MG PO EVERY 6 HOURS NEEDED June 10, 2017 12:00am sucralfate 100 mg/ml oral suspension (17 sources) Aluminum Complex Start: 08-20-2022 End: 06-05-2023 take 1 mL by mouth three times daily Sucralfate (Carafate) 100 mg/mL suspension Discontinued 10 ML PO THREE TIMES A DAY 200 August 20, 2022 1:24pm June 05, 2023 6:50pm Start: 06-17-2015 End: 12-14-2024 take 1 tablet by mouth at bedtime sucralfate (CARAFATE) 1 gram tablet Indications: Gastroesophageal reflux disease without esophagitis Take 1 tablet by mouth before meals and at bedtime. 30 tablet 0 06/17/2015 12/14/2024 Discontinued Comment on above: Take 1 tablet by diamond th before meals and at bedtime. traZODone hydrochloride 50 mg oral tablet (6 sources) Serotonin Reuptake Inhibitor Start: 07-04-20 End: 12-15-19 take 1 tablet by mouth once daily at bedtime traZODone (DESYREL) 50 mg tablet Indications: Insomnia, unspecified insomnia Take 1 tablet by mouth daily at bedtime. 30 tablet 0 07/04/2015 12/14/2024 Discontinued Comment on above: Take 1 tablet by diamond th daily at bedtime. varenicline (6 sources) Partial Cholinergic Nicotinic Agonist Start: 05-01-20 End: 12-15-19 25 Varenicline (CHANTIX) 0.5 mg (11)- 1 mg (42) tablet Indications: Chewing tobacco nicotine dependence without complication Take 0.5 mg daily x3days, then twice daily for 4 days, then 1mg twice daily for duration. 1 Package 0 05/01/2015 12/14/2024 Discontinued Start: 05-01-2015 Varenicline (C HANTIX) 0.5 mg (11)- 1 mg (42) tablet Indications: Chewing tobacco nicotine dependence without complication Take 0.5 mg daily x3days, then twice daily for 4 days, then 1mg twice daily for duration. 1 Package 0 05/01/2015 Active Comment on above: Take 0.5 mg daily x3 days, then twice daily for 4 days, then 1mg twice daily for duration. 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 Chronic Diseases of mouth; excluding dental (1 source) Oral lesion; Translations: [Other lesions of oral mucosa] 11-19-2023 Episodic Disorders of teeth and jaw (13 sources) Gingivitis; Translations: [Chronic gingivitis, plaque induced] 10-29-2015 Chronic E Codes: Natural/environment (13 sources) Bitten or stung by nonvenomous insect and other nonvenomous arthropods, initial encounter; Translations: [Bedbug bite] 10-13-2015 Episodic Esophageal disorders (20 sources) Acid reflux; Translations: [Gastroesophageal reflux disease] 10-28-2015 Chronic Fever of unknown origin (13 sources) Fever with chills; Translations: [Fever, unspecified] 10-29-2015 Episodic Gastritis and duodenitis (13 sources) Gastritis; Translations: [Gastritis, unspecified, without bleeding] 09-03-2022 Episodic Genitourinary symptoms and ill-defined conditions (3 sources) Dysuria; Translations: [Dysuria] Episodic Headache, including migraine (20 sources) Headache; Translations: [Acute headache] Onset: Episodic Immunizations and screening for infectious disease (13 sources) Patient encounter status; Translations: [Encounter for screening for infections with a predominantly sexual mode of transmission] 01-13-2015 Episodic Nausea and vomiting (20 sources) Nausea; Translations: [Nausea and vomiting] 08-18-2016 Episodic Nonspecific chest pain (13 sources) Atypical chest pain; Translations: [Other chest pain] 04-27-2014 Episodic Other ear and sense organ disorders (3 sources) Unilateral earache 04-02-2016 Episodic Other gastrointestinal disorders (13 sources) Diarrhea; Translations: [Diarrhea, unspecified] 08-09-2015 Episodic Other gastrointestinal disorders (8 sources) Swallowing painful; Translations: [Dysphagia, unspecified] 10-18-2022 Episodic Other gastrointestinal disorders (1 source) History of gastroesophageal reflux disease; Translations: [Personal history of other diseases of the digestive system] 12-25-2023 Episodic Other injuries and conditions due to external causes (13 sources) Muscle strain; Translations: [Other injury of unspecified body region, initial encounter] 04-16-2020 Episodic Other liver diseases (13 sources) Elevated liver enzymes level; Translations: [High liver transaminase level] 07-02-2021 Episodic Other lower respiratory disease (13 sources) Hypoxia; Translations: [Hypoxemia] 07-02-2021 Episodic Other nervous system disorders (10 sources) H/O: migraine; Translations: [Personal history of other diseases of the nervous system and sense organs] 09-11-2022 Episodic Other upper respiratory disease (1 source) Allergic rhinitis due to pollen; Translations: [Allergic rhinitis due to pollen] Chronic Other upper respiratory disease (6 sources) Seasonal allergy; Translations: [Other seasonal allergic rhinitis] 07-20-2014 Chronic Other upper respiratory disease (1 source) Nasal congestion; Translations: [Nasal congestion] Onset: 5 Episodic Other upper respiratory infections (1 source) Bacterial sinusitis; Translations: [Chronic sinusitis, unspecified] 11-19-2023 Chronic Other upper respiratory infections (20 sources) Viral upper respiratory tract infection; Translations: [Acute upper respiratory infection, unspecified] 05-17-2014 Episodic Residual codes; unclassified (1 source) Procedure and treatment not carried out due to patient leaving prior to being seen by health care provider; Translations: [Procedure and treatment not carried out due to patient leaving prior to being seen by health care provider] Onset: 5 Episodic Skin and subcutaneous tissue infections (17 sources) Furuncle; Translations: [Abscess] 10-09-2017 Episodic Substance-related disorders (6 sources) Tobacco user; Translations: [Nicotine dependence, unspecified, uncomplicated] 07-20-2014 Chronic Unclassified (1 source) Unknown / UNK(Unknown) Onset: 7 Unclassified (1 source) Cough, unspecified; Translations: [Cough, unspecified] Onset: 5 Urinary tract infections (2 sources) Urinary tract infectious disease; Translations: [Urinary tract infection, site not specified] Onset: 2 Episodic Viral infection (20 sources) COVID-19; Translations: [Pneumonia due to COVID-19 virus] 07-02-2021 Episodic Past or Other Problems Problem Classification Problem Date Documented Da te Episodic/Chronic Abdominal pain (20 sources) Abdominal pain; Translations: [Epigastric pain] Onset: 12-30-2023 06-25-2016 Episodic Comment on above: nausea and vomiting Chronic obstructive pulmonary disease and bronchiectasis (9 sources) Bronchitis; Translations: [Bronchitis, not specified as acute or chronic] Onset: 08-16-2021 Episodic Disorders of teeth and jaw (20 sources) Dental caries; Translations: [Dental caries, unspecified] Onset: 08-05-2015 08-05-2015 Episodic Results Test Name Value Interpretation Reference Range Facility OV 12-14-2024 CNOV Office Visit ([facility]) -------- GILBERTO JOHNSON ([id number]) 1985 M Date Time Provider Department 12/14/24 6:45 PM [facility] During your visit today, we recorded the following information about you: Temperature Pulse Respiration Blood pressure 97.9 degrees 101/minute 16/minute 122/74 Weight 70.5 kg Alex Landers MD 12/14/2024 7:08 PM Signed [facility] Subjective Gilberto Johnson is a 39 year old male. Patient presents with: Cough: Cough and congestion x 2 weeks Feeling drainage for maybe 2 weeks. He was seen in the ED around 12/06/24 and treated with azithromycin for bronchitis/sinusit is. He had follow up with primary care 2 days later and was prescribed tessalon. He continues to have post nasal drainage. He is using nothing for symptoms currently other than his routine zyrtec. Cough Associated symptoms include headaches (resolved migraine with initial illness) and rhinorrhea. Pertinent negatives include no chest pain, no sore throat, no shortness of breath and no wheezing. Review of Systems Constitutional: Negative for fever. HENT: Positive for congestion, postnasal drip and rhinorrhea. Negative for sinus pressure and sore throat. Respiratory: Positive for cough. Negative for shortness of breath and wheezing. Cardiovascular: Negative for chest pain. Neurological: Positive for headaches (resolved migraine with initial illness). Objective BP 122/74 Pulse 101 Temp 36.6 ?C (97.9 ?F) (Tympanic) Resp 16 Wt 70.5 kg (155 lb 6.8 oz) SpO2 96% BMI 23.63 kg/m? Physical Exam Constitutional: General: He is not in acute distress. Appearance: He is not ill-appearing. HENT: Right Ear: Tympanic membrane normal. Left Ear: Tympanic membrane normal. Nose: Congestion (mild) present. Mouth/Throat: Mouth: Mucous membranes are moist. Comments: Posterior pharynx cobblestone lymphoid tissue Eyes: Extraocular Movements: Extraocular movements intact. Conjunctiva/sclera : Conjunctivae normal. Pupils: Pupils are equal, round, and reactive to light. Cardiovascular: Rate and Rhythm: Normal rate and regular rhythm. Heart sounds: No murmur heard. Pulmonary: Effort: No respiratory distress. Breath sounds: No wheezing, rhonchi or rales. Musculoskeletal: Cervical back: Neck supple. Lymphadenopathy: Cervical: No cervical adenopathy. Neurological: Mental Status: He is alert. Psychiatric: Mood and Affect: Mood normal. Comments: Rinses mouth and gargles at the sink a couple times before transition to exam table ASSESSMENT/PLAN: 1. Post-nasal drainage - ICD9: 473.9, ICD10: R09.82 Appears to have residual drainage from recent illness without evidence for recurrent bacterial sinusitis. He may continue cetirizine and expectant management. Alex Landers MD MDM Procedures Allergies As of Date: 12/14/2024 Noted Allergy Reaction AMOXICILLIN (BULK) 11/23/2014 11 - Vomiting IMITREX (SUMATRIPTAN) 05/01/2015 14 - Other: See Comments Comments: Lost memory PENICILLINS 07/20/2014 11 - Vomiting SULFAMETHOXAZOLE-T RIMETHOPRIM 11/19/2023 7 - Swelling Date Reviewed: 12/14/2024 Reviewed by: Alka Borrego LPN - Fully Assessed Reason for Visit: Cough [28] Cmt: Cough and congestion x 2 weeks Primary Visit Diagnosis:Post-roque al drainage [R09.82] Prescriptions as of 12/14/2024 - diphenhydrAMINE-ma alox-lidocaine (BMX 1:1:1) 1:1:1 liqd Mix in equal amounts - 1 T every 2hrs as needed for mouth pain, Swish/swallow or expectorate. (8oz) - busPIRone (BUSPAR) 15 mg tablet - famotidine (PEPCID) 20 mg tablet Take 20 mg by mouth at bedtime as needed. - dicyclomine (BENTYL) 20 mg tablet TAKE 1 TABLET BY MOUTH 2-4 TIMES DAILY - QUEtiapine (SEROQUEL) 25 mg tablet - fluticasone (FLONASE ALLERGY RELIEF) 50 mcg/actuation nasal spray Use 1 [place] in each nostril twice daily. - loratadine (CLARITIN) 10 mg tablet Take 1 tablet by mouth once daily. - naproxen (NAPROSYN) 500 mg tablet Take 1 tablet by mouth twice daily as needed (pain/inflammation , take with food.). Problem List As Of Date 12/14/2024 Noted Resolved Seasonal allergies [J30.2] GERD (gastroesophageal reflux disease) [K21.9] Tobacco use disorder [F17.200] Headache [R51] Learning disability [F81.9] Dental caries [K02.9] 08/05/2015 Medications Discontinued During This Encounter Prescriptions - esomeprazole magnesium (NEXIUM 24HR) 22.3 mg cpDR (Discontinued) Reported on 03/27/2022 - FLUoxetine (PROZAC) 20 mg capsule (Discontinued) Reported on 03/27/2022 - lansoprazole (PREVACID) 30 mg capsule (Discontinued) Reported on 03/27/2022 - ondansetron (ZOFRAN, HYDROCHLORIDE,) 4 mg tablet (Discontinued) Reported on 03/27/2022 - sucralfate (CARAFATE) 1 gram tablet (Discontinued) Reported on 03/27/2022 - traZODone (DESYREL) 50 mg tablet (Discontinued) Reported on 03/27/2022 - Varenicline (RUANO (more content not included)... [facility] Summary on 12-06-2024 Emergency Department Summary [facility] Medical Records Department [address] [place] [address] Emergency Department Summary 12/06/24 MR#: [id number] Acct: [id number] Name: GILBERTO JOHNSON Rep #: [id number] : 1985 39 From: Marco Antonio Cintron MD PCP: Care Physician,No Primary Status:REG ER Location: ED HPI HPI - URI History of Present Illness Chief Complaint: Other, Pain/Inj Informant: patient Onset/Context/Bala ng Onset: Weeks Context: Gradual Onset Timing: Continuous Current Severity: Mild Maximum Severity: Mild Associated Symptoms Associated Symptoms: Positive for Nasal Congestion and Sinus Pressure Narrative Narrative: Healthy 39-year-old male history of anxiety. States has had nasal congestion and drainage for weeks. He has had some nasal and sinus discomfort. Believes was his green nasal drainage is having a small amount of blood. Is concerned he might have a sinus infection. Denies any significant cough or shortness of breath. No fever. Prior similar symptoms: Yes Recent Illness/Hospitaliz ation: No ROS ROS ED ROS Narrative Nasal congestion. Sinus pain. Nasal drainage. Constitutional Constitutional ED: Denies chills or fever(s) Eyes Eyes: Denies blurry vision ENT ENT ED: Reports rhinorrhea; Denies ear pain Cardiovascular Cardiovascular: Denies chest pain Respiratory/Chest Respiratory/Chest: Denies cough or dyspnea Gastrointestinal Gastrointestinal: Denies abdominal pain Genitourinary Genitourinary ED: Denies dysuria or hematuria Musculoskeletal Musculoskeletal: Denies arthralgias or back pain Integumentary Denies abscess or Abrasions Neurologic Neurologic: Denies headache(s) Psychiatric Psychiatric: Denies anxiety or depression Endocrine Endocrinology: Denies cold intolerance or heat intolerance Hematologic/Lympha tic Hematologic/Lympha tic: Denies easy bleeding, easy bruising or lymphadenopathy Allergic/Immunolog ic Allergic/Immunolog ic ED: Denies mouth swelling, tongue swelling or urticaria PFSH PFSH Medical History Acute sinusitis, unspecified Pancreatitis Chronic GERD Tobacco use Anxiety Home Medications ???Medication ???Instructions ???Recorded ???Last Taken ???Type buspirone 5 mg tablet 10 mg PO TID PRN Anxiety 06/10/17 Unknown History famotidine 40 mg tablet (Pepcid) 40 mg PO QHS 06/10/17 Unknown Hist ory quetiapine 25 mg tablet 25 mg PO TID 06/28/21 Unknown Hist ory ondansetron 4 mg disintegrating 4 mg PO Q8H PRN PRN Nausea #10 tab s 12/25/23 Unknown Rx tablet famotidine 20 mg tablet 20 mg PO BID 30 days #60 tabs 06/04 12/25 Unknown Rx sulfamethoxazole 800 1 tab PO BID #6 TABLETS 07/04/24 U nknown Rx mg-trimethoprim 160 mg tablet doxycycline monohydrate 100 mg 100 mg PO BID #14 CAPSULES 4 Unknown Rx capsule guaifenesin 1,200 mg tablet, 1,200 mg PO BID PRN congestion 7 0 10/13/24 Unknown Rx extended release 12 hr (Mucinex) days #14 tabs azithromycin 250 mg tablet See Rx Instructions PO .COMPLEX #6 12/06/24 Unknown Rx (Zithromax Z-Phillip) tabs Allergy/AdvReac Type Severity Reaction Status Date / Time Penicillins Allergy Unknown Verified 12/06/24 12:36 sumatriptan (From Imitrex) Allergy Unknown Verified 12/06/24 12:36 sumatriptan succinate (From Allergy Unknown Verified 12/06/24 12:36 Imitrex) amoxicillin (Amoxicillin) AdvReac Nausea/Vom/ Verified 12/06/24 12:36 Diarrhea Surgical History History of herniorrhaphy No significant past surgical history Social History household members: family Smoking Status: Current every day smoker tobacco type: cigarettes and e-cigarettes Smokeless tobacco user: chewing tobacco how long ago did patient quit smoking: Former cigarette tobacco use, now chew tobacco 2-3 wads daily. alcohol intake: never details: Patient states he currently is not drinking any alcoholic beverages substance use type: does not use EXAM Physical Exam Narrative Exam Narrative: Well-appearing 39-year-old male sitting upright in chair in the hallway due to current volume and acuity. Vital signs are stable afebrile. Pulse ox is 97% on room air no signs of hypoxia. No distress. H EENT exam pupils are unreactive to light. Posterior pharynx unremarkable. He has mild frontal maxillary sinus tenderness. Nasal congestion. Currently no blood or bleeding. Neck nontender no meningismus. No lymphadenopathy. Lungs clear to auscultation bilaterally. Heart regular rhythm rate about 80 no murmur. Chest wall and ribs nontender. Abdomen soft nontender. Moving all 4 extremities. Normal strength. Nontender no edema. Back nontender. Neurologically is awake and alert no focal motor deficits. Benign exam. (more content not included)... [facility] Emergency Department Summary on 10-13-2024 Emergency Department Summary [facility] Medical Records Department [address] [place] [address] Emergency Department Summary 10/13/24 MR#: [id number] Acct: [id number] Name: GILBERTO JOHNSON Rep #: [id number] : 1985 39 From: Antwan Jaimes PCP: Care Physician,No Primary Status:DEP ER Location: ED HPI History of Present Illness Chief Complaint: Cough Narrative Narrative: 39-year-old male presents with few days of nasal congestion and bilateral ear discomfort. He states use peroxide in his ear is in the right one feels better but the left one still has some discomfort. His nose was very dry and he had a nosebleed a week ago send has been putting Vaseline in both nostrils and has had no recurrence of bleeding. He denies fever chills, chest pain or shortness of breath, or cough. He states part of the problem could be he stopped taking his cetirizine for allergies. [facility] Medical History Acute sinusitis, unspecified Pancreatitis Chronic GERD Tobacco use Anxiety Home Medications ???Medication ???Instructions ???Recorded ???Last Taken ???Type buspirone 5 mg tablet 10 mg PO TID PRN Anxiety 06/10/17 Unknown History famotidine 40 mg tablet (Pepcid) 40 mg PO QHS 06/10/17 Unknown History quetiapine 25 mg tablet 25 mg PO TID 06/28/21 Unknown History ondansetron 4 mg disintegrating 4 mg PO Q8H PRN PRN Nausea #10 tabs 12/25/23 Unknown Rx tablet famotidine 20 mg tablet 20 mg PO BID 30 days #60 tabs 06/16/24 Unknown Rx sulfamethoxazole 800 1 tab PO BID #6 TABLETS 07/04/24 Unknown Rx mg-trimethoprim 160 mg tablet doxycycline monohydrate 100 mg 100 mg PO BID #14 CAPSULES 09/19/24 Unknown Rx capsule guaifenesin 1,200 mg tablet, 1,200 mg PO BID PRN congestion 7 10/13/24 Unknown Rx extended release 12 hr (Mucinex) days #14 tabs Allergy/AdvReac Type Severity Reaction Status Date / Time Penicillins Allergy Unknown Verified 10/13/24 14:51 sumatriptan (From Imitrex) Allergy Unknown Verified 10/13/24 14:51 sumatriptan succinate (From Allergy Unknown Verified 10/13/24 14:51 Imitrex) amoxicillin (Amoxicillin) AdvReac Nausea/Vom/ Verified 10/13/24 14:51 Diarrhea Surgical History History of herniorrhaphy No significant past surgical history Social History household members: family Smoking Status: Current every day smoker tobacco type: cigarettes and e-cigarettes Smokeless tobacco user: chewing tobacco how long ago did patient quit smoking: Former cigarette tobacco use, now chew tobacco 2-3 wads daily. alcohol intake: never details: Patient states he currently is not drinking any alcoholic beverages substance use type: does not use ROS ROS ED ROS Narrative Constitutional: Negative for fever, chills, malaise. ENT: Positive for congestion and rhinorrhea. Respiratory: Negative for shortness of breath, cough. GI: Negative for nausea, vomiting, diarrhea. Neuro: Negative for headache. EXAM Physical Exam Narrative Exam Narrative: CONST: Patient sitting in no acute distress. EYES: Normal inspection. ENT: Patient has Vaseline in both naris. Normal posterior oropharynx, normal TMs bilaterally. NECK: Normal inspection. No lymphadenopathy. RESP: No respiratory distress, CTAB. CVS: Regular rate and rhythm, no murmur, no gallop. SKIN: Color normal, no rash, warm, dry, intact. EXTREMITIES: Normal appearance, no pedal edema. NEURO: Alert and answering questions appropriately. PSYCH: Normal affect. Const Vital Signs: 10/13/24 14:51 10/13/24 15:16 Temperature 97.5 F L Temperature Source Temporal Pulse Rate 97 Respiratory Rate 15 Respiratory Effort Normal Respiratory Depth Normal Respiratory Pattern Normal Blood Pressure 118/102 H Blood Pressure Mean 107 Pulse Ox 98 Oxygen Delivery Method Room Air Physical Exam Const Vital Signs: 10/13/24 14:51 10/13/24 15:16 Temperature 97.5 F L Temperature Source Temporal Pulse Rate 97 Respiratory Rate 15 Respiratory Effort Normal Respiratory Depth Normal Respiratory Pattern Normal Blood Pressure 118/102 H Blood Pressure Mean 107 Pulse Ox 98 Oxygen Delivery Method Room Air MDM MDM MDM Narrative Medical decision making narrative: 39-year-old male was evaluated for rhinorrhea and nasal congestion. He appears well and nontoxic. Afebrile and hemodynamically stable. His HEENT exam is benign. There are no signs of bacterial infections requiring antibiotics such as acute otitis media, strep pharyngitis, meningitis or pneumonia. I recommended he restart his cetirizine and I prescribed Mucinex. He was discharged in stable condition. (more content not included)... [facility] Chest PA and Lateralon 09-19 Chest PA and Lateral [facility] Imaging Services [address] [place] [address] [id number] Chest PA and Lateral MR#: [id number] Acct: [id number] Name: GILBERTO JOHNSON Rep #: [id number] : 1985 M 39 From: Derrek Shepard MD PCP: Care Physician,No Primary Status: REG ER Study: Chest PA and Lateral Date of Exam: 09/19/24 Exam# [id number] Ordering Dr: Michel Elena MD [id number] EXAM: XR CHEST, 2 VIEWS CLINICAL INDICATION: Cough, productive and hemoptysis TECHNIQUE: Frontal and lateral views of the chest. COMPARISON: 08/20/2024 FINDINGS: LUNGS AND PLEURAL SPACES: Unremarkable. No consolidation or edema. No pneumothorax. No effusion. HEART: Unremarkable. Cardiac silhouette not enlarged. MEDIASTINUM: Central airways and mediastinal contour are unremarkable. BONES/JOINTS: Unremarkable. No acute fracture. SOFT TISSUES: Unremarkable. RAD/Chest PA and Lateral IMPRESSION: No radiographic evidence of acute cardiopulmonary disease. Electronically Signed: Derrek Shepard MD at 18:56 EST , CC: Dr. 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 [facility] Emergency Department Summary on 09-19-2024 Emergency Department Summary [facility] Medical Records Department [address] [place] [address] Emergency Department Summary 09/19/24 MR#: [id number] Acct: [id number] Name: GILBERTO JOHNSON Rep #: [id number] : 1985 39 From: Michel Elena MD PCP: Care Physician,No Primary Status:REG ER Location: ED HPI History of Present Illness Chief Complaint: Cold Sx Detail of Chief Complaint: Productive cough with hemoptysis Informant: patient Onset/Context/Bala ng Onset: Weeks (Onset of illness 2 weeks ago) Context: Sudden Onset Timing: Continuous Quality: Upper respiratory symptoms with colored sputum and streaks of blood Location: Upper respiratory Current Severity: Mild Maximum Severity: Moderate Worsened by: Nothing specific Relieved by: Nothing Associated Symptoms Associated Symptoms: Rhinorrhea, congestion Narrative Narrative: Patient is a 39-year-old male. He does have history of smoking. He presents with upper respiratory symptoms started 2 weeks ago. He states he has had blood streaks noted in the sputum. He has not had any blood recently. He presents because he has been sick for 2 weeks. He does endorse rhinorrhea and congestion. He also endorses sore throat. He denies headache, visual, ocular auditory symptoms. He denies leg pain, swelling discoloration. He has no history of VTE. He has no risk factors for VTE. He denies abdominal pain, nausea, vomit or diarrhea. He denies myalgias, arthralgias or joint swelling. Furthermore he denies rash. Prior similar symptoms: Yes Recent Illness/Hospitaliz ation: No PFSH PFSH Medical History Acute sinusitis, unspecified Pancreatitis Chronic GERD Tobacco use Anxiety Home Medications ???Medication ???Instructions ???Recorded ???Last Taken ???Type buspirone 5 mg tablet 10 mg PO TID PRN Anxiety 06/10/17 Unknown History famotidine 40 mg tablet (Pepcid) 40 mg PO QHS 06/10/17 Unknown History quetiapine 25 mg tablet 25 mg PO TID 06/28/21 Unknown History ondansetron 4 mg disintegrating 4 mg PO Q8H PRN PRN Nausea #10 tabs 12/25/23 Unknown Rx tablet famotidine 20 mg tablet 20 mg PO BID 30 days #60 tabs 06/16/24 Unknown Rx sulfamethoxazole 800 1 tab PO BID #6 TABLETS 07/04/24 Unknown Rx mg-trimethoprim 160 mg tablet doxycycline monohydrate 100 mg 100 mg PO BID #14 CAPSULES 09/19/24 Unknown Rx capsule Allergy/AdvReac Type Severity Reaction Status Date / Time Penicillins Allergy Unknown Verified 09/19/24 17:58 sumatriptan (From Imitrex) Allergy Unknown Verified 09/19/24 17:58 sumatriptan succinate (From Allergy Unknown Verified 09/19/24 17:58 Imitrex) amoxicillin (Amoxicillin) AdvReac Nausea/Vom/ Verified 09/19/24 17:58 Diarrhea Surgical History History of herniorrhaphy No significant past surgical history Social History household members: family Smoking Status: Current every day smoker tobacco type: cigarettes and e-cigarettes Smokeless tobacco user: chewing tobacco how long ago did patient quit smoking: Former cigarette tobacco use, now chew tobacco 2-3 wads daily. alcohol intake: never details: Patient states he currently is not drinking any alcoholic beverages substance use type: does not use ROS ROS ED Constitutional Constitutional ED: Reports fever(s) and subjective; Denies chills, sweats or weight loss Eyes Eyes: Denies blurry vision, change in vision or diplopia ENT ENT ED: Reports rhinorrhea and sore throat; Denies ear pain Cardiovascular Cardiovascular: Denies chest pain, orthopnea, palpitations, paroxysmal nocturnal dyspnea or racing heartbeat Respiratory/Chest Respiratory/Chest: Reports cough, dyspnea and sputum; Denies dyspnea on exertion, orthopnea or paroxysmal nocturnal dyspnea Gastrointestinal Gastrointestinal: Denies abdominal pain, diarrhea, nausea or vomiting Genitourinary Genitourinary ED: Denies dysuria, hematuria or urinary frequency Musculoskeletal Musculoskeletal: Denies arthralgias or myalgias Integumentary Denies rash Neurologic Neurologic: Denies paresthesias or weakness Endocrine Endocrinology: Denies cold intolerance or heat intolerance Hematologic/Lympha tic Hematologic/Lympha tic: Reports systems reviewed and no addt'l complaints, except as documented EXAM Physical Exam Const Vital Signs: 09/19/24 17:58 09/19/24 18:06 Temperature 97.6 F L Temperature Source Temporal Pulse Rate 99 Respiratory Rate 18 Respiratory Pattern Normal Blood Pressure 121/88 H Blood Pressure Mean 99 Pulse Ox 99 Oxygen Delivery Method Room Air Positive well nourished and well developed Constitutional Narrative: Patient appears ill but not toxic. Genera (more content not included)... [facility] Chest [facility] Imaging Services [address] [place] [address] Acute [facility]domen [facility] Chest MR#: [id number] Acct: [id number] Name: GILBERTO JOHNSON Rep #: [id number] : 1985 M 39 From: Robert Rhoades PCP: Care Physician,No Primary Status: REG ER Study: Acute Abdomen Inc Chest Date of Exam: 08/20/24 Exam# [id number] Ordering Dr: Alan Begum MD [id number] STUDY: X-RAY - ACUTE ABDOMINAL SERIES REASON FOR EXAM: Male, 39 years old. pain TECHNIQUE: Single view of the chest. Supine, 2 view(s) of the abdomen were obtained. COMPARISON: 06.05.23 FINDINGS: The lungs are clear and expanded. Normal size heart. Normal mediastinum and chen. Normal visualized pulmonary arteries. Normal visualized aortic arch and descending thoracic aorta. There is a non-specific bowel gas pattern. The soft tissue structures of the abdomen and pelvis are unremarkable. Normal visualized osseous structures. RAD/Acute Abdomen Inc Chest IMPRESSION: Normal x-ray examination of the chest, abdomen, and pelvis. Electronically Signed: Robert Eugene MD at 14:13 EST , CC: Dr. 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 He states he has been having problems with bowel movements and constipation for the last few months. Additionally, he states that he has been having dysuria for the last 2-1/2 months. While he lives alone, he states he spoke to his mother and told he was supposed to be checked for intestinal blockage, urinary tract infection, and a bladder infection. He denies any fevers or chills. No nausea or vomiting. No problems with bowel movements in the sense that he is having bowel movements, but he states he does not feel as if he is fully evacuating. He feels as if there is more stool present in his colon. [facility] Medical History Acute sinusitis, unspecified Pancreatitis Chronic GERD Tobacco use Anxiety Home Medications ???Medication ???Instructions ???Recorded ???Last Taken ???Type buspirone 5 mg tablet 10 mg PO TID PRN Anxiety 06/10/17 Unknown History famotidine 40 mg tablet (Pepcid) 40 mg PO QHS 06/10/17 Unknown History quetiapine 25 mg tablet 25 mg PO TID 06/28/21 Unknown History ondansetron 4 mg disintegrating 4 mg PO Q8H PRN PRN Nausea #10 tabs 12/25/23 Unknown Rx tablet famotidine 20 mg tablet 20 mg PO BID 30 days #60 tabs 06/16/24 Unknown Rx sulfamethoxazole 800 1 tab PO BID #6 TABLETS 07/04/24 Unknown Rx mg-trimethoprim 160 mg tablet Allergy/AdvReac Type Severity Reaction Status Date / Time Penicillins Allergy Unknown Verified 08/20/24 13:21 sumatriptan (From Imitrex) Allergy Unknown Verified 08/20/24 13:21 sumatriptan succinate (From Allergy Unknown Verified 08/20/24 13:21 Imitrex) amoxicillin (Amoxicillin) AdvReac Nausea/Vom/ Verified 08/20/24 13:21 Diarrhea Surgical History History of herniorrhaphy No significant past surgical history Social History household members: family Smoking Status: Current every day smoker tobacco type: cigarettes and e-cigarettes Smokeless tobacco user: chewing tobacco how long ago did patient quit smoking: Former cigarette tobacco use, now chew tobacco 2-3 wads daily. alcohol intake: never details: Patient states he currently is not drinking any alcoholic beverages substance use type: does not use ROS ROS ED ROS Narrative Constitutional: No fever, no chills. HEENT: No sore throat. No neck pain. No loss of vision. No rhinorrhea. Cardiovascular: No chest pain. No palpitations. No pedal edema. Respiratory: No cough, no shortness of breath. Abdominal: No abdominal pain. No nausea. No vomiting. Feels as if he is not evacuating bowels fully. Genitourinary: 2 and half months of dysuria. No hematuria. Musculoskeletal: No myalgias. No arthralgias. Neurologic: No headaches. No dizziness. No lightheadedness. Skin: No rash. No change in color. Psychiatric: No depression. No anxiety. EXAM Physical Exam Narrative Exam Narrative: Afebrile. Vital signs noted. Nontoxic-appearing . HEENT: Normocephalic. Atraumatic. PERRL, EOMI. Neck soft and supple. No point tenderness or step off. Cardiovascular: Regular rate and rhythm. No murmurs, rubs, or gallops appreciated. Respiratory: No tachypnea. Lungs clear to auscultation bilaterally. Gastrointestinal: Abdomen soft, nontender, with normoactive bowel sounds. No rebound or guarding. Neurological: Awake. Alert. Nonfocal, nonlateralizing. Skin: No rash. Normal color. No pallor. Musculoskeletal: No pedal edema. Full range of motion extremities. Const Vital Signs: 08/20/24 13:21 Temperature 97.9 F Temperature Source Oral Pulse Rate 93 Respiratory Rate 16 Blood Pressure 131/100 H Blood Pressure Mean 110 Pulse Ox 98 Oxygen Delivery Method Room Air MDM MDM MDM Narrative Medical decision making narrative: I do not feel he needs laboratory work. Differential diagnosis includes partial small bowel obstruction versus constipation and also in the differential would be urinary tract infection and cystitis given his dysuria. He has a nonsurgical abdomen on examination. X-rays were obtained to rule out obstruction. Additionally, urinalysis was obtained to rule out infection. Urinalysis obtained and reviewed and there is evidence of infection, there are 0 WBCs and negative leukocytes, negative n (more content not included)... Normal [facility] Urinalysis, Completeon 08-20 BACTERIA 1+ /hpf Normal None Seen [facility] Comment on above: Order Comment: DAWOOD CTOR TO SPECIFY Performed By: #### L 400.0001 #### [facility] [address] [place], [address] RBC 0-5 SEEN Normal 0-5 [facility] Comment on above: Order Comment: DAWOOD CTOR TO SPECIFY Performed By: #### L 400.0001 #### [facility] [address] [place], [address] EPI,SQUAMOUS 0-5 SEEN Normal 0-5 [facility] Comment on above: Order Comment: DAWOOD CTOR TO SPECIFY Performed By: #### L 400.0001 #### [facility] [address] [place], [address] Mucus Ql (Urine sed) 0 SEEN Normal [facility] Comment on above: Order Comment: DAWOOD CTOR TO SPECIFY Performed By: #### L 400.0001 #### [facility] [address] [place], [address] WBC 0 SEEN Normal 0-5 [facility] Comment on above: Order Comment: COLLE CTOR TO SPECIFY Performed By: #### L 400.0001 #### [facility] [address] [place], [address] Urine Cultureon 07-05-2024 URC Culture exhibits no growth. Normal [facility] Comment on above: Performed By: #### M 100.2200 #### [facility] [address] [place], [address] CBC W/Diff, Automatedon Absolute Neut Normal 2.0-7.7 [facility] Comment on above: Performed By: #### L 500.4050, L100.0100 #### [facility] [address] [place], [address] HCT Normal 40-54 [facility] Comment on above: Performed By: #### L 500.4050, L100.0100 #### [facility] [address] [place], [address] HGB Normal 13.0-16.5 [facility] Comment on above: Performed By: #### L 500.4050, L100.0100 #### [facility] [address] [place], [address] MCH Normal 27.0-32.0 [facility] Comment on above: Performed By: #### L 500.4050, L100.0100 #### [facility] [address] [place], [address] MCHC Normal 32-36 [facility] Comment on above: Performed By: #### L 500.4050, L100.0100 #### [facility] [address] [place], [address] MCV Normal 80-94 [facility] Comment on above: Performed By: #### L 500.4050, L100.0100 #### [facility] [address] [place], [address] NEUT% Normal 47-70 [facility] Comment on above: Performed By: #### L 500.4050, L100.0100 #### [facility] [address] [place], [address] PLT Normal 150-450 [facility] Comment on above: Performed By: #### L 500.4050, L100.0100 #### [facility] [address] [place], [address] RBC Normal 4.6-6.2 [facility] Comment on above: Performed By: #### L 500.4050, L100.0100 #### [facility] [address] [place], [address] RDW CV Normal 11.6-14.6 [facility] Comment on above: Performed By: #### L 500.4050, L100.0100 #### [facility] [address] [place], [address] RDW SD Normal 35.1-43.9 [facility] Comment on above: Performed By: #### L 500.4050, L100.0100 #### [facility] [address] [place], [address] WBC Normal 4.4-11.0 [facility] Comment on above: Performed By: #### L 500.4050, L100.0100 #### [facility] [address] [place], [address] Comprehensive Metabolic Prof ilon 07-04-2024 ALB Normal 3.2-5.0 [facility] Comment on above: Result Comment: GREGORY ENT DISCHARGED-NO SPECIMEN REC'D Performed By: #### L 500.4050, L100.0100 ####[facility] [address] [place], [address] ALK P Normal 45-117 [facility] Comment on above: Result Comment: GREGORY ENT DISCHARGED-NO SPECIMEN REC'D Performed By: #### L 500.4050, L100.0100 ####[facility] [address] [place], [address] ALT Normal 16-61 [facility] Comment on above: Result Comment: GREGORY ENT DISCHARGED-NO SPECIMEN REC'D Performed By: #### L 500.4050, L100.0100 ####[facility] [address] [place], [address] AST Normal 15-37 [facility] Comment on above: Result Comment: GREGORY ENT DISCHARGED-NO SPECIMEN REC'D Performed By: #### L 500.4050, L100.0100 ####[facility] [address] [place], [address] BUN Normal 7-18 [facility] Comment on above: Result Comment: GREGORY ENT DISCHARGED-NO SPECIMEN REC'D Performed By: #### L 500.4050, L100.0100 ####[facility] [address] [place], [address] BUN/CRE Normal 10-20 [facility] Comment on above: Result Comment: GREGORY ENT DISCHARGED-NO SPECIMEN REC'D Performed By: #### L 500.4050, L100.0100 ####[facility] [address] [place], [address] CA,Total Normal 8.5-10.1 [facility] Comment on above: Result Comment: GREGORY ENT DISCHARGED-NO SPECIMEN REC'D Performed By: #### L 500.4050, L100.0100 ####[facility] [address] [place], [address] CL Normal 98-107 [facility] Comment on above: Result Comment: GREGORY ENT DISCHARGED-NO SPECIMEN REC'D Performed By: #### L 500.4050, L100.0100 ####[facility] [address] [place], [address] CO2 Normal 21.0-32.0 [facility] Comment on above: Result Comment: GREGORY ENT DISCHARGED-NO SPECIMEN REC'D Performed By: #### L 500.4050, L100.0100 ####[facility] [address] [place], [address] CREAT,SERUM Normal 0.70-1.30 [facility] Comment on above: Result Comment: GREGORY ENT DISCHARGED-NO SPECIMEN REC'D Performed By: #### L 500.4050, L100.0100 ####[facility] [address] [place], [address] EST GFR Normal >60 [facility] Comment on above: Result Comment: GREGORY ENT DISCHARGED-NO SPECIMEN REC'D Performed By: #### L 500.4050, L100.0100 ####[facility] [address] [place], [address] EST GFR - AA Normal >60 [facility] Comment on above: Result Comment: GREGORY ENT DISCHARGED-NO SPECIMEN REC'D Performed By: #### L 500.4050, L100.0100 ####[facility] [address] [place], [address] GAP Normal 5-15 [facility] Comment on above: Result Comment: GREGORY ENT DISCHARGED-NO SPECIMEN REC'D Performed By: #### L 500.4050, L100.0100 ####[facility] [address] [place], [address] GLU Normal 74-106 [facility] Comment on above: Result Comment: GREGORY ENT DISCHARGED-NO SPECIMEN REC'D Performed By: #### L 500.4050, L100.0100 ####[facility] [address] [place], [address] Potassium Normal 3.5-5.1 [facility] Comment on above: Result Comment: GREGORY ENT DISCHARGED-NO SPECIMEN REC'D Performed By: #### L 500.4050, L100.0100 ####[facility] [address] [place], [address] T BILI Normal 0.20-1.00 [facility] Comment on above: Result Comment: GREGORY ENT DISCHARGED-NO SPECIMEN REC'D Performed By: #### L 500.4050, L100.0100 ####[facility] [address] [place], [address] T PROT Normal 6.4-8.2 [facility] Comment on above: Result Comment: GREGORY ENT DISCHARGED-NO SPECIMEN REC'D Performed By: #### L 500.4050, L100.0100 ####[facility] [address] [place], [address] Comprehensive Metabolic Profil Normal 136-145 [facility] Comment on above: Result Comment: GREGORY ENT DISCHARGED-NO SPECIMEN REC'D Performed By: #### L 500.4050, L100.0100 ####[facility] [address] [place], [address] Emergency Department Summary on 07-04-2024 Emergency Department Summary [facility] Medical Records Department [address] [place] [address] Emergency Department Summary 07/04/24 MR#: [id number] Acct: [id number] Name: GILBERTO JOHNSON Rep #: [id number] : 1985 38 From: Nolan Brady DO PCP: Care Physician,No Primary Status:DEP ER Location: ED HPI History of Present Illness Chief Complaint: Abd Pain Informant: patient Onset/Context/Bala ng Onset: Today Context: Gradual Onset Timing: Continuous Quality: Aching, burning, stabbing Location: Epigastric area Worsened by: Nothing Relieved by: Drinking water Narrative Narrative: Patient presents with upset stomach and epigastric pain that began today. Patient states he is on famotidine for this. Patient states he does not feel it is working any longer. Patient states he feels like he needs a GI cocktail. Patient describes his pain as burning, aching, and stabbing. Patient states it is mainly over the epigastric area. Patient denies any radiation into his chest. Patient admits to some low back pain. Patient admits to some dysuria but denies any hematuria. Patient admits to some nausea but denies any vomiting or diarrhea. Patient admits to some subjective chills but denies any fevers. [facility] Medical History Acute sinusitis, unspecified Pancreatitis Chronic GERD Tobacco use Anxiety Home Medications ???Medication ???Instructions ???Recorded ???Last Taken ???Type buspirone 5 mg tablet 10 mg PO TID PRN Anxiety 06/10/17 Unknown History famotidine 40 mg tablet (Pepcid) 40 mg PO QHS 06/10/17 Unknown History quetiapine 25 mg tablet 25 mg PO TID 06/28/21 Unknown History ondansetron 4 mg disintegrating 4 mg PO Q8H PRN PRN Nausea #10 tabs 12/25/23 Unknown Rx tablet famotidine 20 mg tablet 20 mg PO BID 30 days #60 tabs 06/16/24 Unknown Rx sulfamethoxazole 800 1 tab PO BID #6 TABLETS 07/04/24 Unknown Rx mg-trimethoprim 160 mg tablet Allergy/AdvReac Type Severity Reaction Status Date / Time Penicillins Allergy Unknown Verified 07/04/24 09:14 sumatriptan (From Imitrex) Allergy Unknown Verified 07/04/24 09:14 sumatriptan succinate (From Allergy Unknown Verified 07/04/24 09:14 Imitrex) amoxicillin (Amoxicillin) AdvReac Nausea/Vom/ Verified 07/04/24 09:14 Diarrhea Surgical History History of herniorrhaphy No significant past surgical history Social History household members: family Smoking Status: Current every day smoker tobacco type: cigarettes and e-cigarettes Smokeless tobacco user: chewing tobacco how long ago did patient quit smoking: Former cigarette tobacco use, now chew tobacco 2-3 wads daily. alcohol intake: never details: Patient states he currently is not drinking any alcoholic beverages substance use type: does not use ROS ROS ED Constitutional Constitutional ED: Reports chills and subjective; Denies fever(s) Eyes Eyes: Denies blurry vision or change in vision ENT ENT ED: Denies rhinorrhea or sore throat Cardiovascular Cardiovascular: Denies chest pain or palpitations Respiratory/Chest Respiratory/Chest: Denies cough or dyspnea Gastrointestinal Gastrointestinal: Reports abdominal pain and nausea; Denies diarrhea, melena or vomiting Genitourinary Genitourinary ED: Reports dysuria; Denies hematuria Musculoskeletal Musculoskeletal: Reports back pain; Denies neck pain Integumentary Denies abscess or rash Neurologic Neurologic: Reports headache(s); Denies weakness Allergic/Immunolog ic Allergic/Immunolog ic ED: Denies mouth swelling or urticaria EXAM Physical Exam Const Vital Signs: 07/04/24 09:13 Temperature 97 F L Temperature Source Temporal Pulse Rate 99 Respiratory Rate 14 Blood Pressure 122/90 H Blood Pressure Mean 100 Pulse Ox 97 Oxygen Delivery Method Room Air Positive well nourished and well developed General Appearance ED: well developed and NAD HEENT Reports moist mucous membranes Neck supple and no JVD Resp normal respiratory effort and clear to auscultation bilaterally Cardio regular rate and regular rhythm GI non-distended Palpation: soft and tender epigastric; Negative for guarding or rebound tenderness present Extremity normal to inspection General Extremety ED: Negative for edema or tenderness General Extremity: Negative for edema Neuro oriented x3, CN's II-XII intact bilaterally and no sensory deficits noted Sensorium / Orientation: alert Motor Exam: strength 5/5 throughout MDM MDM MDM Narrative Medical decision making narrative: Differential diagnosis includes gastritis, peptic ulcer disease, pancreatitis, cholecystitis, cholelithiasis, viral illne (more content not included)... Normal [facility] Urinalysis, Completeon 07-04 BACTERIA RARE Normal None Seen [facility] Comment on above: Order Comment: COLLE CTOR TO SPECIFY Performed By: #### L 400.0001 #### [facility] [address] [place], [address] WBC >100 SEEN Normal 0-5 [facility] Comment on above: Order Comment: DAWOOD CTOR TO SPECIFY Performed By: #### L 400.0001 #### [facility] [address] [place], [address] EPI,SQUAMOUS 0 SEEN Normal 0-5 [facility] Comment on above: Order Comment: DAWOOD CTOR TO SPECIFY Performed By: #### L 400.0001 #### [facility] [address] [place], [address] Mucus Ql (Urine sed) 0 SEEN Normal [facility] Comment on above: Order Comment: DAWOOD CTOR TO SPECIFY Performed By: #### L 400.0001 #### [facility] [address] [place], [address] RBC 0 SEEN Normal 0-5 [facility] Comment on above: Order Comment: DAWOOD CTOR TO SPECIFY Performed By: #### L 400.0001 #### [facility] [address] [place], [place], [id number] Emergency Department Summary on 06-16-2024 Emergency Department Summary [facility] Medical Records Department [address] [place] [address] Emergency Department Summary 06/16/24 MR#: [id number] Acct: [id number] Name: GILBERTO JOHNSON Rep #: [id number] : 1985 38 From: Matt Whatley DO PCP: Care Physician,No Primary Status:DEP ER Location: ED HPI History of Present Illness Chief Complaint: Abd Pain Informant: patient Narrative Narrative: Patient is a 38-year-old male with past medical history of gastritis. He states he takes famotidine secondary to this. He reports that he has tried to decrease the amount of spicy and acidic foods in his diet but he still drinks caffeine as well as uses nicotine. He reports he contacted his family doctor that he is out of his medication but he did not hear back from them and this evening he was having increased stomach burning and pain. Secondary to this he comes in for evaluation. [facility] Medical History (Updated 06/16/24 @ 23:[address] Matt Whatley, DO) Acute sinusitis, unspecified Pancreatitis Chronic GERD Tobacco use Anxiety Home Medications ???Medication ???Instructions ???Recorded ???Last Taken ???Type buspirone 5 mg tablet 10 mg PO TID PRN Anxiety 06/10/17 Unknown History famotidine 40 mg tablet (Pepcid) 40 mg PO QHS 06/10/17 Unknown History quetiapine 25 mg tablet 25 mg PO TID 06/28/21 Unknown History ondansetron 4 mg disintegrating 4 mg PO Q8H PRN PRN Nausea #10 tabs 12/25/23 Unknown Rx tablet famotidine 20 mg tablet 20 mg PO BID 30 days #60 tabs 06/16/24 Unknown Rx Allergy/AdvReac Type Severity Reaction Status Date / Time Penicillins Allergy Unknown Verified 06/16/24 21:18 sumatriptan (From Imitrex) Allergy Unknown Verified 06/16/24 21:18 sumatriptan succinate (From Allergy Unknown Verified 06/16/24 21:18 Imitrex) amoxicillin (Amoxicillin) AdvReac Nausea/Vom/ Verified 06/16/24 21:18 Diarrhea Surgical History History of herniorrhaphy No significant past surgical history Social History household members: family Smoking Status: Current every day smoker tobacco type: cigarettes and e-cigarettes Smokeless tobacco user: chewing tobacco how long ago did patient quit smoking: Former cigarette tobacco use, now chew tobacco 2-3 wads daily. alcohol intake: never details: Patient states he currently is not drinking any alcoholic beverages substance use type: does not use ROS ROS ED Constitutional Constitutional ED: Denies chills or fever(s) ENT ENT ED: Denies sore throat Cardiovascular Cardiovascular: Denies chest pain Respiratory/Chest Respiratory/Chest: Denies cough or dyspnea Gastrointestinal Gastrointestinal: Reports abdominal pain; Denies diarrhea, nausea or vomiting Genitourinary Genitourinary ED: Denies dysuria Musculoskeletal Musculoskeletal: Denies myalgias Integumentary Denies rash Neurologic Neurologic: Denies headache(s) Hematologic/Lympha tic Hematologic/Lympha tic: Denies easy bleeding or easy bruising EXAM Physical Exam Const Vital Signs: 06/16/24 21:17 Temperature 97.8 F Temperature Source Temporal Pulse Rate 91 Respiratory Rate 16 Blood Pressure 133/91 H Blood Pressure Mean 105 Pulse Ox 99 Oxygen Delivery Method Room Air Positive well nourished and well developed General Appearance ED: well developed; Negative for pallor HEENT Reports moist mucous membranes HEENT Narrative: No tongue or lip swelling no oral lesions no airway edema or compromise No secondary findings in the posterior pharynx to suggest infection Eyes PERRL and EOMs intact bilaterally General Eye ED: Negative for scleral icterus Neck supple Resp normal respiratory effort and clear to auscultation bilaterally Cardio regular rate and regular rhythm GI normal to inspection, nondistended, normoactive bowel sounds, non-tender, non-distended and no masses GI Narrative: Abdomen is soft nontender and nondistended with normal active bowel sounds. No voluntary guarding or rigidity or pulsatile mass. Auscultation: normoactive bowel sounds Palpation: soft Extremity normal to inspection Neuro oriented x3, CN's II-XII intact bilaterally and no sensory deficits noted Sensorium / Orientation: alert Motor Exam: strength 5/5 throughout Psych mental status grossly normal Skin no rashes or lesions noted General Skin Exam: Negative for jaundice or pallor MDM MDM MDM Narrative Medical decision making narrative: Patient arrived to the ER slightly hypertensive but otherwise with stable vitals. He has a longstanding history of gastritis and does have risk factors for it based on his diet and nicotine use. He denies any alcohol use and he is not have pain on palpat (more content not included)... Normal [facility] Abdomen/Pelvis without Conto n 12-25-2023 Abdomen/Pelvis without Cont [facility] Imaging Services [address] [place] [address] Abdomen/Pelvis without Cont MR#: [id number] Acct: [id number] Name: GILBERTO JOHNSON Rep #: [id number] : 1985 M 38 From: Ashutosh Matamoros MD PCP: Care Physician,No Primary Status: REG ER Study: Abdomen/Pelvis without Cont Date of Exam: 12/03 12/25 Exam# [id number] Ordering Dr: Varun Early DO [id number] INDICATION: abdominal pain EXAMINATION: CT ABDOMEN AND PELVIS WITHOUT CONTRAST - CT Abdomen And Pelvis W/O Contrast Injection TECHNIQUE: Helically acquired images were obtained of the abdomen and pelvis without oral or IV contrast. A radiation dose optimization technique was used for this scan. IV Contrast dosage and agent: None. Oral contrast: None. COMPARISON: None. FINDINGS: LOWER CHEST: Lung bases are clear. No cardiomegaly or pericardial effusion. LIVER: Homogeneous. No focal mass. GALLBLADDER AND BILIARY TREE: No calcified gallstones. No gallbladder distension or wall edema. No intra- or extrahepatic biliary ductal dilation. PANCREAS: No focal cystic or solid mass. SPLEEN: Normal size without focal cystic or solid mass. ADRENAL GLANDS: No nodules. KIDNEYS AND URETERS: Normal renal size and position. No hydronephrosis. PERITONEUM: No ascites or free air. No other fluid collection. BOWEL: Stomach is fluid-filled. Small bowel is fluid-filled without with mild long segment proximal wall thickening. No gross bowel distention. Normal appendix. Fluid-filled colon extending to inferior descending colon without wall thickening or surrounding inflammation. . LYMPH NODES: No enlarged mesenteric or retroperitoneal lymph nodes. VESSELS: Aorta is non-dilated. URINARY BLADDER: Unremarkable. ABDOMINAL WALL: Small Fat-containing umbilical hernia without inflammation. BONES: No lytic or blastic abnormality. CT/Abdomen/Pelvis without Cont IMPRESSION: Fluid throughout stomach, small bowel, and most of the colon with mild proximal small bowel wall thickening. This is nonspecific but compatible with mild infectious enteritis in the appropriate setting. Electronically Signed: Ashutosh Matamoros MD at 6:51 EDT , CC: Dr. 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 Bilirubin [Mass/Vol] 1.10 mg/dL 0.20-1.00 [facility] Comment on above: For patients on eltr ombopag therapy, use of Dimension Taylor TBIL is not recommended. Chloride [Moles/Vol] 105 mmol/L 98-107 [facility] Eosinophils/100 WBC (Bld) 0.5 % 0-5 [facility] Glucose [Mass/Vol] 91 mg/dL 74-106 [facility] Hemoglobin (Bld) [Mass/Vol] 17.9 g/dL 13.0-16. 5 [facility] Monocytes/100 WBC (Bld) 7.1 % 0-10 [facility] Neutrophils (Bld) [#/Vol] 14.8 10*3/uL 2.0-7.7 [facility] Neutrophils/100 WBC (Bld) 85.7 % 47-70 [facility] Potassium [Moles/Vol] 3.2 mmol/L 3.5-5.1 [facility] Protein [Mass/Vol] 8.4 g/dL 6.4-8.2 [facility] Sodium [Moles/Vol] 142 mmol/L 136-145 [facility] WBC (Bld) [#/Vol] 17.2 10*3/uL 4.4-11.0 [facility] CBC W/Diff, Automatedon 12-03 Absolute Lymph 1.00 X10 3/uL Normal 0.83-4.51 [facility] Comment on above: Performed By: #### L 501.2730, L500.4050, L100.0100 #### [facility] [facility] [place], [place], [id number] Absolute Neut 14.8 X10 3/uL High 2.0-7.7 [facility] Comment on above: Performed By: #### L 501.2450, L500.4050, L100.0100 #### [facility] [address] [place], [address] Basophils/100 WBC (Bld) 0.4 % Normal 0-1 [facility] Comment on above: Performed By: #### L 501.2450, L500.4050, L100.0100 #### [facility] [address] [place], [address] Eosinophils/100 WBC (Bld) 0.5 % Normal 0-5 [facility] Comment on above: Performed By: #### L 501.2450, L500.4050, L100.0100 #### [facility] [address] [place], [address] Erythrocyte distribution width (RBC) [Ratio] 11.9 % Normal 11.6-14.6 [facility] Comment on above: Performed By: #### L 501.2450, L500.4050, L100.0100 #### [facility] [address] [place], [address] Hematocrit (Bld) [Volume fraction] 51.2 % Normal 40-54 [facility] Comment on above: Performed By: #### L 501.2450, L500.4050, L100.0100 #### [facility] [address] [place], [address] Hemoglobin (Bld) [Mass/Vol] 17.9 g/dL High 13.0-16. 5 [facility] Comment on above: Performed By: #### L 501.2450, L500.4050, L100.0100 #### [facility] [address] [place], [address] IG% 0.500 Normal 0.0-0.9 [facility] Comment on above: Result Comment: IG% - Immature Granulocytes (promyelocytes, myelocytes and metamyelocytes) > 1% indicates that a LEFT SHIFT is Present. Performed By: #### L 501.2450, L500.4050, L100.0100 #### [facility] [address] [place], [address] Lymphocytes/100 WBC (Bld) 5.8 % Low 19-41 [facility] Comment on above: Performed By: #### L 501.2450, L500.4050, L100.0100 #### [facility] [address] [place], [address] MCH (RBC) [Entitic mass] 32.0 pg Normal 27.0-32.0 [facility] Comment on above: Performed By: #### L 501.2450, L500.4050, L100.0100 #### [facility] [address] [place], [address] MCHC (RBC) [Mass/Vol] 35.0 g/dL Normal 32-36 [facility] Comment on above: Performed By: #### L 501.2450, L500.4050, L100.0100 #### [facility] [address] [place], [address] MCV (RBC) [Entitic vol] 91.4 fL Normal 80-94 [facility] Comment on above: Performed By: #### L 501.2450, L500.4050, L100.0100 #### [facility] [address] [place], [address] Monocytes/100 WBC (Bld) 7.1 % Normal 0-10 [facility] Comment on above: Performed By: #### L 501.2450, L500.4050, L100.0100 #### [facility] [address] [place], [address] Neutrophils/100 WBC (Bld) 85.7 % High 47-70 [facility] Comment on above: Performed By: #### L 501.2450, L500.4050, L100.0100 #### [facility] [address] [place], [address] Nucleated RBC (Bld) [#/Vol] 0 10*3/uL Normal 0-5 [facility] Comment on above: Performed By: #### L 501.2450, L500.4050, L100.0100 #### [facility] [address] [place], [address] Platelet mean volume (Bld) [Entitic vol] 10.4 fL Normal 6.2-12.0 [facility] Comment on above: Performed By: #### L 501.2450, L500.4050, L100.0100 #### [facility] [address] [place], [address] Platelets (Bld) [#/Vol] 201 10*3/uL Normal 150-450 [facility] Comment on above: Performed By: #### L 501.2450, L500.4050, L100.0100 #### [facility] [address] [place], [address] RBC (Bld) [#/Vol] 5.60 10*6/uL Normal 4.6-6.2 [facility] Comment on above: Performed By: #### L 501.2450, L500.4050, L100.0100 #### [facility] [address] [place], [address] RDW SD 39.5 fl Normal 35.1-43.9 [facility] Comment on above: Performed By: #### L 501.2450, L500.4050, L100.0100 #### [facility] [address] [place], [address] WBC (Bld) [#/Vol] 17.2 10*3/uL High 4.4-11.0 [facility] Comment on above: Performed By: #### L 501.2450, L500.4050, L100.0100 #### [facility] [address] [place], [address] Comprehensive Metabolic Prof ilon 12-25-2023 Albumin [Mass/Vol] 4.5 g/dL Normal 3.2-5.0 [facility] Comment on above: Performed By: #### L 501.2450, L500.4050, L100.0100 #### [facility] [address] [place], [address] Albumin/Globulin [Mass ratio] 1.2 {ratio} Normal 0.9-2.4 [facility] Comment on above: Performed By: #### L 501.2450, L500.4050, L100.0100 #### [facility] [address] [place], [address] ALK P 69 U/L Normal 45-117 [facility] Comment on above: Performed By: #### L 501.2450, L500.4050, L100.0100 #### [facility] [address] [place], [address] ALT [Catalytic activity/Vol] 23 U/L Normal 16-61 [facility] Comment on above: Performed By: #### L 501.2450, L500.4050, L100.0100 #### [facility] [address] [place], [address] AST [Catalytic activity/Vol] 21 U/L Normal 15-37 [facility] Comment on above: Performed By: #### L 501.2450, L500.4050, L100.0100 #### [facility] [address] [place], [address] Bilirubin [Mass/Vol] 1.10 mg/dL High 0.20-1.00 [facility] Comment on above: Result Comment: For patients on eltrombopag therapy, use of Dimension Taylor TBIL is not recommended. Performed By: #### L 501.2450, L500.4050, L100.0100 #### [facility] [address] [place], [address] BUN/CRE 15.9 RATIO Normal 10-20 [facility] Comment on above: Performed By: #### L 501.2450, L500.4050, L100.0100 #### [facility] [address] [place], [address] CA,Total 9.2 mg/dL Normal 8.5-10.1 [facility] Comment on above: Performed By: #### L 501.2450, L500.4050, L100.0100 #### [facility] [address] [place], [address] Chloride [Moles/Vol] 105 mmol/L Normal 98-107 [facility] Comment on above: Performed By: #### L 501.2450, L500.4050, L100.0100 #### [facility] [address] [place], [address] CO2 [Moles/Vol] 32.0 mmol/L Normal 21.0-32.0 [facility] Comment on above: Performed By: #### L 501.2450, L500.4050, L100.0100 #### [facility] [address] [place], [address] Creatinine [Mass/Vol] 0.94 mg/dL Normal 0.70-1.30 [facility] Comment on above: Result Comment: The validity of the calculated GFR GFRAA in patients over 70 years has not been determined. Clinical correlation is essential. Performed By: #### L 501.2450, L500.4050, L100.0100 #### [place] [facility] [address] [place], [address] ECRCL 97.58 ml/min Normal [facility] Comment on above: Performed By: #### L 501.2450, L500.4050, L100.0100 #### [facility] [address] [place], [address] EST GFR - AA 116 mL/min Normal >60 [facility] Comment on above: Result Comment: Afri can [place] GFR Calc Performed By: #### L 501.2450, L500.4050, L100.0100 #### [facility] [address] [place], [address] GAP 5 Normal 5-15 [facility] Comment on above: Performed By: #### L 501.2450, L500.4050, L100.0100 #### [facility] [address] [place], [address] GFR/1.73 sq M.predicted among non-blacks MDRD (S/P/Bld) [Vol rate/Area] 96 mL/min/{1.73_m2} Normal >60 [facility] Comment on above: Result Comment: Non- GFR Calc Performed By: #### L 501.2450, L500.4050, L100.0100 #### [facility] [address] [place], [address] Globulin (S) [Mass/Vol] 3.9 g/dL Normal 2.2-4.2 [facility] Comment on above: Performed By: #### L 501.2450, L500.4050, L100.0100 #### [facility] [address] [place], [address] Glucose [Mass/Vol] 91 mg/dL Normal 74-106 [facility] Comment on above: Performed By: #### L 501.2450, L500.4050, L100.0100 #### [facility] [address] [place], [address] Potassium [Moles/Vol] 3.2 mmol/L Low 3.5-5.1 [facility] Comment on above: Performed By: #### L 501.2450, L500.4050, L100.0100 #### [facility] [address] [place], [address] Sodium [Moles/Vol] 142 mmol/L Normal 136-145 [facility] Comment on above: Performed By: #### L 501.2450, L500.4050, L100.0100 #### [facility] [address] [place], [address] T PROT 8.4 g/dL High 6.4-8.2 [facility] Comment on above: Performed By: #### L 501.2450, L500.4050, L100.0100 #### [facility] [address] [place], [address] Urea nitrogen [Mass/Vol] 15 mg/dL Normal 7-18 [facility] Comment on above: Performed By: #### L 501.2450, L500.4050, L100.0100 #### [facility] [address] [place], [address] Determination of erythrocyte mean corpuscular volume (MCV)Ordered By: Varun Early on 12-25-2023 MCV (RBC) [Entitic vol] 91.4 fL 80-94 [facility] Emergency Department Summary on 12-25-2023 Emergency Department Summary [facility] Medical Records Department [address] [place] [address] Emergency Department Summary 12/25/23 MR#: [id number] Acct: [id number] Name: GILBERTO JOHNSON Rep #: [id number] : 1985 38 From: Remus Ungur DO PCP: Care Physician,No Primary Status:DEP ER Location: ED HPI HPI - GI History of Present Illness Chief Complaint: Abd Pain Detail of Chief Complaint: Upper abdominal pain and reflux Informant: patient Narrative Narrative: Patient presents to the emergency department with complaint of upper abdomen pain and reflux. He states he is vomited 2 or 3 times tonight. He has history of GERD and takes famotidine. Patient took some Tums which seemed to help a little bit. Patient states he has been in the ER before for this and GI cocktail seem to really help. Patient denies any fevers. He states that laying down makes it worse. Patient requesting a GI cocktail. PFSH PFSH Medical History Acute sinusitis, unspecified Anxiety Chronic GERD Pancreatitis Tobacco use Home Medications buspirone 5 mg tablet 10 mg PO TID PRN Anxiety 06/10/17 [History Last Taken Unknown] famotidine 40 mg tablet (Pepcid) 40 mg PO QHS 06/10/17 [History Last Taken Unknown] quetiapine 25 mg tablet 25 mg PO TID 06/28/21 [History Last Taken Unknown] ondansetron 4 mg disintegrating tablet 4 mg PO Q8H PRN PRN Nausea #10 tabs 12/25/23 [Rx Last Taken Unknown] Allergy/AdvReac Type Severity Reaction Status Date / Time Penicillins Allergy Unknown Verified 12/25/23 03:44 sumatriptan [From Imitrex] Allergy Unknown Verified 12/25/23 03:44 sumatriptan succinate Allergy Unknown Verified 12/25/23 03:44 [From Imitrex] amoxicillin [Amoxicillin] AdvReac Nausea/Vom/ Verified 12/25/23 03:44 Diarrhea Surgical History History of herniorrhaphy No significant past surgical history Social History household members: family Smoking Status: Current every day smoker tobacco type: cigarettes and e-cigarettes Smokeless tobacco user: chewing tobacco how long ago did patient quit smoking: Former cigarette tobacco use, now chew tobacco 2-3 wads daily. alcohol intake: never details: Patient states he currently is not drinking any alcoholic beverages substance use type: does not use ROS ROS ED Review of Systems ROS Unobtainable: other Constitutional Constitutional ED: Reports lethargy; Denies chills, fever(s), sweats or weight loss Eyes Eyes: Denies blurry vision, change in vision or diplopia ENT ENT ED: Denies rhinorrhea or sore throat Cardiovascular Cardiovascular: Denies chest pain, orthopnea or racing heartbeat Respiratory/Chest Respiratory/Chest: Denies cough, dyspnea, dyspnea on exertion, orthopnea or sputum Gastrointestinal Gastrointestinal: Reports abdominal pain, nausea and vomiting; Denies diarrhea Genitourinary Genitourinary ED: Denies dysuria, hematuria or urinary frequency Musculoskeletal Musculoskeletal: Denies arthralgias, back pain, myalgias or neck pain Integumentary Denies abscess, Abrasions or rash Neurologic Neurologic: Denies headache(s) or weakness Psychiatric Psychiatric: Denies anxiety, depression or suicidal thoughts Endocrine Endocrinology: Denies polydipsia, polyphagia or polyuria Hematologic/Lympha tic Hematologic/Lympha tic: Denies easy bleeding, easy bruising or lymphadenopathy Allergic/Immunolog ic Allergic/Immunolog ic ED: Denies mouth swelling, tongue swelling or urticaria EXAM Physical Exam Const Vital Signs: 12/25/23 03:45 12/25/23 04:42 12/25/23 05:51 Temperature 98.5 F 98.1 F Temperature Source Temporal Oral Pulse Rate 93 87 81 Respiratory Rate 16 16 16 Blood Pressure 116/74 120/79 121/84 H Blood Pressure Mean 88 92 96 Pulse Ox 100 97 97 Oxygen Delivery Method Room Air Room Air 12/25/23 07:31 Temperature 97.4 F L Temperature Source Pulse Rate 79 Respiratory Rate 16 Blood Pressure 116/83 H Blood Pressure Mean 94 Pulse Ox 99 Oxygen Delivery Method Positive well nourished and well developed General Appearance ED: well developed and NAD HEENT Reports TM's clear and moist mucous membranes normocephalic and atraumatic; Negative for trauma or tenderness Tympanic Membrane ED: Yes TM's clear Eyes PERRL and EOMs intact bilaterally General Eye ED: Negative for pale conjunctiva or scleral icterus Neck no lymphadenopathy, supple and no JVD General: Negative for tenderness Chest Wall inspection of chest normal and palpation of chest normal Chest: Negative for tenderness Resp normal respiratory effort and clear to auscultation bilaterally Effort and Inspection: Negative for respiratory distress or pain with movement Auscultation: Negative f (more content not included)... Normal [facility] Erythrocyte distribution wid th ratioOrdered By: Remus Sharath on 12-25-2023 Erythrocyte distribution width (RBC) [Ratio] 11.9 % 11.6-14.6 [facility] Erythrocyte distribution wid th standard deviationOrdered By: [facility] on 12-25-[facility]23 Erythrocyte distribution width (RBC) [Entitic vol] 39.5 fL 35.1-43.9 [facility] Hematocrit Auto (Bld) [Volum e fraction]Ordered By: [facility] on 12-25-2023 Hematocrit (Bld) [Volume fraction] 51.2 % 40-54 [facility] Immature granulocytes/100 WB C Auto (Bld)Ordered By: [facility] on 12-25-2023 Immature granulocytes/100 WBC (Bld) 0.500 % 0.0-0.9 [facility] Comment on above: IG% - Immature Granu locytes (promyelocytes, myelocytes and metamyelocytes) > 1% indicates that a LEFT SHIFT is Present. Laboratory - Chemistry and C hemistry - challengeOrdered By: [facility] on 12-25-2023 Albumin/Globulin [Mass ratio] 1.2 {ratio} 0.9-2.4 [facility] ALP [Catalytic activity/Vol] 69 U/L 45-117 [facility] ALT [Catalytic activity/Vol] 23 U/L 16-61 [facility] CO2 [Moles/Vol] 32.0 mmol/L 21.0-32.0 [facility] Globulin (S) [Mass/Vol] 3.9 g/dL 2.2-4.2 [facility] Lipase [Catalytic activity/Vol] 42 U/L 13-75 [facility] Comment on above: Please note:LIPASE r evised reference range effective 23. New Lipase methodology. Expected to produce lower values than the previous assay method. NEW Reference Range: 13 - 75 U/L Urea nitrogen/Creatinine [Mass ratio] 15.9 mg/mg 10-20 [facility] - Hematology and Cell countsOrdered By: [facility] on 12-25-2023 MCH (RBC) [Entitic mass] 32.0 pg 27.0-32.0 [facility] MCHC (RBC) [Mass/Vol] 35.0 g/dL 32-36 [facility] Nucleated RBC/100 WBC (Bld) [Ratio] 0 % 0-5 [facility] Platelet mean volume (Bld) [Entitic vol] 10.4 fL 6.2-12.0 [facility] Platelets (Bld) [#/Vol] 201 10*3/uL 150-450 [facility] Lipaseon 12-25-2023 Lipase [Catalytic activity/Vol] 42 U/L Normal 13-75 [facility] Comment on above: Result Comment: Octavia marshall note: LIPASE revised reference range effective 23. New Lipase methodology. Expected to produce lower values than the previous assay method. NEW Reference Range: 13 - 75 U/L Performed By: #### L 501.2450, L500.4050, L100.0100 #### [facility] [address] [place], [address] No Panel InformationOrdered By: Varun Early on 12-25-2023 Estimated Creatinine Clearance Calc 97.58 ml/min [facility] Estimated GFR (MDRD) Amer 116 mL/min >60 [facility] Comment on above: GFR Calc Estimated GFR (MDRD) Non-Af Amer 96 mL/min >60 [facility] Comment on above: Non- GFR Calc RBC Auto (Bld) [#/Vol]Ordere d By: Varun Early on 12-25-2023 RBC (Bld) [#/Vol] 5.60 10*6/uL 4.6-6.2 [facility] Serum or plasma calcium rosalia urement (mass/volume)Ordered By: Varun Early on 12-25-2023 Calcium [Mass/Vol] 9.2 mg/dL 8.5-10.1 [facility] Serum or plasma creatinine m easurement (mass/volume)Ordered By: Varun Early on 12-25-2023 Creatinine [Mass/Vol] 0.94 mg/dL 0.70-1.30 [facility] Comment on above: The validity of the calculated GFR & GFRAA in patients over 70 years has not been determined. Clinical correlation is essential. Serum or plasma urea nitroge n measurement (mass/volume)Ordered By: Varun Early on 12-25-2023 Urea nitrogen [Mass/Vol] 15 mg/dL 7-18 [facility] Thin prep Papanicolaou smear with manual screeningOrdered By: Varun Early on 12-25-2023 Thin prep Papanicolaou smear with manual screening 4.5 g/dL 3.2-5.0 [facility] Thin prep Papanicolaou smear with manual screening 21 U/L 15-37 [facility] Thin prep Papanicolaou smear with manual screening 5 5-15 [facility] Absolute lymphocyte countOrd ered By: Dr. Brady on 01-02-2023 Lymphocytes Auto (Unsp spec) [#/Vol] 1.44 10*3/uL 0.83-4.51 [facility] Basophil percentageOrdered B y: Dr. Brady on 01-02-2023 Basophils/100 WBC (Bld) 0.3 % 0-1 [facility] Chloride [Moles/Vol] 108 mmol/L 98-107 [facility] Eosinophils/100 WBC (Bld) 1.0 % 0-5 [facility] Glucose [Mass/Vol] 89 mg/dL 74-106 [facility] Neutrophils (Bld) [#/Vol] 6.5 10*3/uL 2.0-7.7 [facility] Neutrophils/100 WBC (Bld) 71.9 % 47-70 [facility] Potassium [Moles/Vol] 3.2 mmol/L 3.5-5.1 [facility] Sodium [Moles/Vol] 142 mmol/L 136-145 [facility] WBC (Bld) [#/Vol] 9.0 10*3/uL 4.4-11.0 [facility] Blood erythrocytes count (nu mber/volume)Ordered By: Dr. Brady on 01-02-2023 RBC (Bld) [#/Vol] 4.31 10*6/uL 4.6-6.2 [facility] Blood hemoglobin measurement (mass/volume)Ordered By: Dr. Brady on 01-02-2023 Hemoglobin (Bld) [Mass/Vol] 14.0 g/dL 13.0-16. 5 [facility] Blood lymphocytes/100 leukoc ytesOrdered By: Dr. Brady on 01-02-2023 Lymphocytes/100 WBC (Bld) 16.0 % 19-41 [facility] Blood monocytes/100 leukocyt esOrdered By: Dr. Brady on 01-02-2023 Monocytes/100 WBC (Bld) 10.5 % 0-10 [facility] Blood platelet mean volumeOr dered By: Dr. Brady on 01-02-2023 Platelet mean volume (Bld) [Entitic vol] 9.8 fL 6.2-12.0 [facility] Determination of erythrocyte mean corpuscular volume (MCV)Ordered By: Dr. Brady on 01-02-2023 MCV (RBC) [Entitic vol] 91.9 fL 80-94 [facility] Hematocrit Auto (Bld) [Volum e fraction]Ordered By: Dr. Brady on 01-02-2023 Hematocrit (Bld) [Volume fraction] 39.6 % 40-54 [facility] - Chemistry and C hemistry - challengeOrdered By: Dr. Brady on 01-02-2023 CO2 [Moles/Vol] 30.0 mmol/L 21.0-32.0 [facility] Urea nitrogen/Creatinine [Mass ratio] 6.0 mg/mg 10-20 [facility] - Hematology and Cell countsOrdered By: Dr. Brady on 01-02-2023 Erythrocyte distribution width (RBC) [Entitic vol] 40.3 fL 35.1-43.9 [facility] Erythrocyte distribution width (RBC) [Ratio] 11.9 % 11.6-14.6 [facility] Immature granulocytes/100 WBC (Bld) 0.300 % 0.0-0.9 [facility] Comment on above: IG% - Immature Granu locytes (promyelocytes, myelocytes and metamyelocytes) > 1% indicates that a LEFT SHIFT is Present. MCH (RBC) [Entitic mass] 32.5 pg 27.0-32.0 [facility] Nucleated RBC/100 WBC (Bld) [Ratio] 0 % 0-5 [facility] MCHC Auto (RBC) [Mass/Vol]Or dered By: Dr. Brady on 01-02-2023 MCHC (RBC) [Mass/Vol] 35.4 g/dL 32-36 [facility] No Panel InformationOrdered By: Dr. Brady on 01-02-2023 Estimated Creatinine Clearance Calc 93.27 ml/min [facility] Estimated GFR (MDRD) Amer 109 mL/min >60 [facility] Comment on above: GFR Calc Estimated GFR (MDRD) Non-Af Amer 90 mL/min >60 [facility] Comment on above: Non- GFR Calc Platelets bldOrdered By: Dr. Brady on 01-02-2023 Platelets (Bld) [#/Vol] 147 10*3/uL 150-450 [facility] Serum or plasma calcium rosalia urement (mass/volume)Ordered By: Dr. Brady on 01-02-2023 Calcium [Mass/Vol] 8.8 mg/dL 8.5-10.1 [facility] Serum or plasma creatinine m easurement (mass/volume)Ordered By: Dr. Brady on 01-02-2023 Creatinine [Mass/Vol] 1.00 mg/dL 0.70-1.30 [facility] Comment on above: The validity of the calculated GFR & GFRAA in patients over 70 years has not been determined. Clinical correlation is essential. Serum or plasma urea nitroge n measurement (mass/volume)Ordered By: Dr. Brady on 01-02-2023 Urea nitrogen [Mass/Vol] 6 mg/dL 7-18 [facility] Thin prep Papanicolaou smear with manual screeningOrdered By: Dr. Brady on 01-02-2023 Thin prep Papanicolaou smear with manual screening 4 5-15 [facility] Throat Streptococcus pyogene s antigen detection by immunofluorescenceOrdered By: Dr. Begum on 10-11-2022 S. pyogenes Ag IF Ql (Throat) [facility] STREPAon 10-03-2022 Group A Strep PCR Negative Normal Negative [facility] ([place]) Comment on above: Performed By: #### S PRINCESS #### [address] [address] Group A Strep PCR Int Normal [facility] ([place]) Comment on above: Result Comment: Nega tive for Streptococcus pyogenes by PCR. Negative test results do not rule out other possible infections besides those caused by Group A Streptococcus. False Negatives may be obtained in the presence of NYQUIL (0.5% V/V) The [employer] A Strep Assay is a real-time polymerase chain reaction (PCR) based qualitative in vitro diagnostic test for the direct detection of Streptococcus pyogenes (Group A Beta hemolytic Streptococcus) in throat swab specimens from patients with signs and symptoms of pharyngitis. The [employer] A Strep Assay can be used as an aid in the diagnosis of Group A Streptococcal pharyngitis. The assay is not intended to monitor treatment for Group A Streptococcus infections. See Interp Performed By: #### S PRINCESS #### [place] [address] LABORATORYOrdered By: Modesto Tam on 10-02-2022 S. pyogenes DNA YESICA+probe Ql (Throat) Negative (10/02/22 8:41 PM) Invalid Interpretation Code Negative AO Auto Urine SS S. pyogenes DNA YESICA+probe Ql (Throat) Negative for Streptococcus pyogenes by PCR. Negative test results do not rule out other possible infections besides those caused by Group A Streptococcus. False Negatives may be obtained in the presence of NYQUIL (0.5% V/V)[employer] A Strep Assay is a real-time polymerase chain reaction (PCR) based qualitative in vitro diagnostic test for the direct detection of Streptococcus pyogenes (Group A Beta hemolytic Streptococcus) in throat swab specimens from patients with signs and symptoms of pharyngitis.The Patel Group A Strep Assay can be used as an aid in the diagnosis of Group A Streptococcal pharyngitis. The assay is not intended to monitor treatment for Group A Streptococcus infections. Invalid Interpretation Code AO Auto Urine SS Throat Streptococcus pyogene s antigen detection by immunofluorescenceOrdered By: Dr. Cintron on 09-11-2022 S. pyogenes Ag IF Ql (Throat) [facility] Absolute lymphocyte countOrd ered By: Dr. Pena on 09-03-2022 Lymphocytes Auto (Unsp spec) [#/Vol] 0.50 10*3/uL 0.83-4.51 [facility] Basophil percentageOrdered B y: Dr. Pena on 09-03-2022 Basophils/100 WBC (Bld) 0.3 % 0-1 [facility] Bilirubin [Mass/Vol] 1.60 mg/dL 0.20-1.00 [facility] Comment on above: For patients on eltr ombopag therapy, use of Dimension Taylor TBIL is not recommended. Chloride [Moles/Vol] 109 mmol/L 98-107 [facility] Eosinophils/100 WBC (Bld) 0.0 % 0-5 [facility] Glucose [Mass/Vol] 100 mg/dL 74-106 [facility] Comment on above: Fasting Glucose resu lt from 100 to 125 mg/dL suggests IMPAIRED HOMEOSTASIS per A.D.A. criteria. Neutrophils (Bld) [#/Vol] 10.0 10*3/uL 2.0-7.7 [facility] Neutrophils/100 WBC (Bld) 89.3 % 47-70 [facility] Potassium [Moles/Vol] 3.7 mmol/L 3.5-5.1 [facility] Protein [Mass/Vol] 7.4 g/dL 6.4-8.2 [facility] Sodium [Moles/Vol] 144 mmol/L 136-145 [facility] WBC (Bld) [#/Vol] 11.2 10*3/uL 4.4-11.0 [facility] Blood erythrocytes count (nu mber/volume)Ordered By: Dr. Pena on 09-03-2022 RBC (Bld) [#/Vol] 5.24 10*6/uL 4.6-6.2 [facility] Blood hemoglobin measurement (mass/volume)Ordered By: Dr. Pena on 09-03-2022 Hemoglobin (Bld) [Mass/Vol] 16.8 g/dL 13.0-16. 5 [facility] Blood lymphocytes/100 leukoc ytesOrdered By: Dr. Pena on 09-03-2022 Lymphocytes/100 WBC (Bld) 4.5 % 19-41 [facility] Blood manual differential co mment interpretation (narrative result)Ordered By: Dr. Pena on 09-03-2022 Manual differential comment Vincent (Bld) [Interp] SEE COMMENT [facility] Comment on above: LYMPHOPENIA NOTED Blood monocytes/100 leukocyt esOrdered By: Dr. Pena on 09-03-2022 Monocytes/100 WBC (Bld) 5.5 % 0-10 [facility] Blood platelet adequacy dete ction by light microscopyOrdered By: Dr. Pena on 09-03-2022 Platelets LM Ql (Bld) ADEQUATE ADEQ [facility] Blood platelet mean volumeOr dered By: Dr. Pena on 09-03-2022 Platelet mean volume (Bld) [Entitic vol] 10.5 fL 6.2-12.0 [facility] Determination of erythrocyte mean corpuscular volume (MCV)Ordered By: Dr. Pena on 09-03-2022 MCV (RBC) [Entitic vol] 90.5 fL 80-94 [facility] Hematocrit Auto (Bld) [Volum e fraction]Ordered By: Dr. Pena on 09-03-2022 Hematocrit (Bld) [Volume fraction] 47.4 % 40-54 [facility] Laboratory - Chemistry and C hemistry - challengeOrdered By: Dr. Pena on 09-03-2022 ALP [Catalytic activity/Vol] 67 U/L 45-117 [facility] ALT [Catalytic activity/Vol] 24 U/L 16-61 [facility] CO2 [Moles/Vol] 30.0 mmol/L 21.0-32.0 [facility] Globulin (S) [Mass/Vol] 3.2 g/dL 2.2-4.2 [facility] Lipase [Catalytic activity/Vol] 50 U/L 73-393 [facility] Urea nitrogen/Creatinine [Mass ratio] 9.8 mg/mg 10-20 [facility] Laboratory - Hematology and Cell countsOrdered By: Dr. Pena on 09-03-2022 Anisocytosis Ql (Bld) RARE [facility] Erythrocyte distribution width (RBC) [Entitic vol] 40.6 fL 35.1-43.9 [facility] Erythrocyte distribution width (RBC) [Ratio] 12.5 % 11.6-14.6 [facility] Immature granulocytes/100 WBC (Bld) 0.400 % 0.0-0.9 [facility] Comment on above: IG% - Immature Granu locytes (promyelocytes, myelocytes and metamyelocytes) > 1% indicates that a LEFT SHIFT is Present. MCH (RBC) [Entitic mass] 32.1 pg 27.0-32.0 [facility] Nucleated RBC/100 WBC (Bld) [Ratio] 0 % 0-5 [facility] MCHC Auto (RBC) [Mass/Vol]Or dered By: Dr. Pena on 09-03-2022 MCHC (RBC) [Mass/Vol] 35.4 g/dL 32-36 [facility] Macrocytes detectionOrdered By: Dr. Pena on 09-03-2022 Macrocytes Ql (Bld) RARE [facility] No Panel InformationOrdered By: Dr. Pena on 09-03-2022 Estimated Creatinine Clearance Calc 108.90 ml/min [facility] Estimated GFR (MDRD) Amer 138 mL/min >60 [facility] Comment on above: GFR Calc Estimated GFR (MDRD) Non-Af Amer 114 mL/min >60 [facility] Comment on above: Non- GFR Calc Ethyl Alcohol Level 5.0 mg/dL [facility] Comment on above: The serum:whole bloo d ethanol ratio is approximately 1.14and varies slightly with hematocrit. Medical Alcohol reference interval and critical value innon-tolerant individuals; 50 - 100 Impairment 100 Intoxication 100 - 250 Severe Poisoning 250 - 400 Deep/possible fatal coma Influenza Types A,B Direct FA (JESS) [facility] Platelets bldOrdered By: Dr. Pena on 09-03-2022 Platelets (Bld) [#/Vol] 151 10*3/uL 150-450 [facility] RBC morphologyOrdered By: Dr Dick Pena on 09-03-2022 RBC morphology finding Nom (Bld) N CHROM NORMAL NORM C&C [facility] Serum or plasma albumin rosalia urement (mass/volume)Ordered By: Dr. Pena on 09-03-2022 Albumin [Mass/Vol] 4.2 g/dL 3.2-5.0 [facility] Serum or plasma albumin/glob ulin mass ratioOrdered By: Dr. Pena on 09-03-2022 Albumin/Globulin [Mass ratio] 1.3 {ratio} 0.9-2.4 [facility] Serum or plasma calcium rosalia urement (mass/volume)Ordered By: Dr. Pena on 09-03-2022 Calcium [Mass/Vol] 8.8 mg/dL 8.5-10.1 [facility] Serum or plasma creatinine m easurement (mass/volume)Ordered By: Dr. Pena on 09-03-2022 Creatinine [Mass/Vol] 0.82 mg/dL 0.70-1.30 [facility] Comment on above: The validity of the calculated GFR & GFRAA in patients over 70 years has not been determined. Clinical correlation is essential. Serum or plasma urea nitroge n measurement (mass/volume)Ordered By: Dr. Pena on 09-03-2022 Urea nitrogen [Mass/Vol] 8 mg/dL 7-18 [facility] Thin prep Papanicolaou smear with manual screeningOrdered By: Dr. Pena on 09-03-2022 Thin prep Papanicolaou smear with manual screening 16 U/L 15-37 [facility] Thin prep Papanicolaou smear with manual screening 5 5-15 [facility] Basophil percentageOrdered B y: Dr. Richards on 08-20-2022 Basophil percentage 0 SEEN /hpf 0-5 [facility] Bilirubin Test strip Ql (U)O rdered By: Dr. Richards on 08-20-2022 Bilirubin Ql (U) Negative Negative [facility] Ketones Test strip Ql (U)Ord ered By: Dr. Richards on 08-20-2022 Ketones Ql (U) Negative Negative [facility] Mucus LM Ql (Urine sed)Order ed By: Dr. Richards on 08-20-2022 Mucus Ql (Urine sed) 0 SEEN /hpf [facility] Nitrite Test strip Ql (U)Ord ered By: Dr. Richards on 08-20-2022 Nitrite Ql (U) Negative Negative [facility] Protein Test strip Ql (U)Ord ered By: Dr. Richards on 08-20-2022 Protein Ql (U) Negative Negative [facility] Squamous epithelial cells de tection in urine sediment by light microscopyOrdered By: Dr. Richards on 08-20-2022 Epithelial cells.squamous LM Ql (Urine sed) 0 SEEN /hpf 0-5 [facility] Urine blood detectionOrdered By: Dr. Richards on 08-20-2022 RBC Ql (U) Negative Negative [facility] RBC Ql (U) 0 SEEN /hpf 0-5 [facility] Urine clarityOrdered By: Dr. Richards on 08-20-2022 Clarity (U) Clear Clear [facility] Urine color determinationOrd ered By: Dr. Richards on 08-20-2022 Color (U) Straw Yellow [facility] Urine glucose detectionOrder ed By: Dr. Richards on 08-20-2022 Glucose Ql (U) Normal mg/dl Normal [facility] Urine leukocyte esterase det ection by dipstickOrdered By: Dr. Richards on 08-20-2022 Leukocyte esterase Test strip Ql (U) Negative Negative [facility] Urine pHOrdered By: Dr. Kapil cha on 08-20-2022 pH (U) 7.0 [pH] 5.0 - 8.0 [facility] Urine sediment bacteria coun t by microscopy (number/high power field)Ordered By: Dr. Richards on 08-20-2022 Bacteria LM.HPF (Urine sed) [#/Area] 0 /[HPF] None Seen [facility] Urine specific gravity measu rementOrdered By: Dr. Richards on 08-20-2022 Specific gravity (U) [Rel density] 1.010 1.002-1.030 [facility] Urobilinogen Auto test strip Ql (U)Ordered By: Dr. Richards on 08-20-2022 Urobilinogen Ql (U) Normal mg/dl Normal [facility] Absolute lymphocyte counton 07-30-2022 Lymphocytes Auto (Unsp spec) [#/Vol] 0.88 10*3/uL 0.83-4.51 [facility] Work Phone: Basophil percentageon 2021 Basophils/100 WBC (Bld) 0.1 % 0-1 [facility] Work Phone: Bilirubin [Mass/Vol] 1.70 mg/dL 0.20-1.00 [facility] Work Phone: Comment on above: For patients on eltr ombopag therapy, use of Dimension Taylor TBIL is not recommended. Chloride [Moles/Vol] 106 mmol/L 98-107 [facility] Work Phone: Eosinophils/100 WBC (Bld) 0.1 % 0-5 [facility] Work Phone: Glucose [Mass/Vol] 109 mg/dL 74-106 [facility] Work Phone: Comment on above: Fasting Glucose resu lt from 100 to 125 mg/dL suggests IMPAIRED HOMEOSTASIS per A.D.A. criteria. Neutrophils (Bld) [#/Vol] 5.1 10*3/uL 2.0-7.7 [facility] Work Phone: Neutrophils/100 WBC (Bld) 75.1 % 47-70 [facility] Work Phone: Potassium [Moles/Vol] 3.8 mmol/L 3.5-5.1 [facility] Work Phone: Protein [Mass/Vol] 7.4 g/dL 6.4-8.2 [facility] Work Phone: Sodium [Moles/Vol] 137 mmol/L 136-145 [facility] Work Phone: WBC (Bld) [#/Vol] 6.8 10*3/uL 4.4-11.0 [facility] Work Phone: Blood erythrocytes count (nu mber/volume)on 07-30-2022 RBC (Bld) [#/Vol] 4.96 10*6/uL 4.6-6.2 [facility] Work Phone: Blood hemoglobin measurement (mass/volume)on 07-30-2022 Hemoglobin (Bld) [Mass/Vol] 16.2 g/dL 13.0-16. 5 [facility] Work Phone: Blood lymphocytes/100 leukoc yteson 07-30-2022 Lymphocytes/100 WBC (Bld) 12.9 % 19-41 [facility] Work Phone: Blood monocytes/100 leukocyt eson 07-30-2022 Monocytes/100 WBC (Bld) 11.4 % 0-10 [facility] Work Phone: Blood platelet mean volumeon 07-30-2022 Platelet mean volume (Bld) [Entitic vol] 10.2 fL 6.2-12.0 [facility] Work Phone: [phone] Determination of erythrocyte mean corpuscular volume (MCV)on 07-30-2022 MCV (RBC) [Entitic vol] 87.7 fL 80-94 [facility] Work Phone: [phone] Hematocrit Auto (Bld) [Volum e fraction]on 07-30-2022 Hematocrit (Bld) [Volume fraction] 43.5 % 40-54 [facility] Work Phone: Laboratory - Chemistry and C hemistry - challengeon 07-30-2022 ALP [Catalytic activity/Vol] 66 U/L 45-117 [facility] Work Phone: [phone] ALT [Catalytic activity/Vol] 22 U/L 16-61 [facility] Work Phone: [phone] CO2 [Moles/Vol] 26.0 mmol/L 21.0-32.0 [facility] Work Phone: [phone] Globulin (S) [Mass/Vol] 3.3 g/dL 2.2-4.2 [facility] Work Phone: [phone] Lipase [Catalytic activity/Vol] 54 U/L 73-393 [facility] Work Phone: [phone] Urea nitrogen/Creatinine [Mass ratio] 9.2 mg/mg 10-20 [facility] Work Phone: [phone] Laboratory - Hematology and Cell countson 07-30-2022 Erythrocyte distribution width (RBC) [Entitic vol] 37.7 fL 35.1-43.9 [facility] Work Phone: [phone] Erythrocyte distribution width (RBC) [Ratio] 11.8 % 11.6-14.6 [facility] Work Phone: [phone] Immature granulocytes/100 WBC (Bld) 0.400 % 0.0-0.9 [facility] Work Phone: [phone] Comment on above: IG% - Immature Granu locytes (promyelocytes, myelocytes and metamyelocytes) > 1% indicates that a LEFT SHIFT is Present. MCH (RBC) [Entitic mass] 32.7 pg 27.0-32.0 [facility] Work Phone: Nucleated RBC/100 WBC (Bld) [Ratio] 0 % 0-5 [facility] Work Phone: [phone] MCHC Auto (RBC) [Mass/Vol]on 07-30-2022 MCHC (RBC) [Mass/Vol] 37.2 g/dL 32-36 [facility] Work Phone: No Panel Informationon 07-30 Estimated Creatinine Clearance Calc 82.55 ml/min [facility] Work Phone: [phone] Estimated GFR (MDRD) Amer 99 mL/min >60 [facility] Work Phone: [phone] Comment on above: GFR Calc Estimated GFR (MDRD) Non-Af Amer 82 mL/min >60 [facility] Work Phone: Comment on above: Non- GFR Calc Platelets bldon 07-30-2022 Platelets (Bld) [#/Vol] 166 10*3/uL 150-450 [facility] Work Phone: Serum or plasma albumin rosalia urement (mass/volume)on 07-30-2022 Albumin [Mass/Vol] 4.1 g/dL 3.2-5.0 [facility] Work Phone: Serum or plasma albumin/glob ulin mass ratioon 07-30-2022 Albumin/Globulin [Mass ratio] 1.2 {ratio} 0.9-2.4 [facility] Work Phone: [phone] Serum or plasma calcium rosalia urement (mass/volume)on 07-30-2022 Calcium [Mass/Vol] 9.1 mg/dL 8.5-10.1 [facility] Work Phone: [phone] Serum or plasma creatinine m easurement (mass/volume)on 07-30-2022 Creatinine [Mass/Vol] 1.09 mg/dL 0.70-1.30 [facility] Work Phone: [phone] Comment on above: The validity of the calculated GFR & GFRAA in patients over 70 years has not been determined. Clinical correlation is essential. Serum or plasma urea nitroge n measurement (mass/volume)on 07-30-2022 Urea nitrogen [Mass/Vol] 10 mg/dL 7-18 [facility] Work Phone: Thin prep Papanicolaou smear with manual screeningon 07-30-2022 Thin prep Papanicolaou smear with manual screening 24 U/L 15-37 [facility] Work Phone: Thin prep Papanicolaou smear with manual screening 5 5-15 [facility] Work Phone: Absolute lymphocyte counton 07-29-2022 Lymphocytes Auto (Unsp spec) [#/Vol] 0.96 10*3/uL 0.83-4.51 [facility] Work Phone: Basophil percentageon 2021 Basophils/100 WBC (Bld) 0.3 % 0-1 [facility] Work Phone: Bilirubin [Mass/Vol] 1.60 mg/dL 0.20-1.00 [facility] Work Phone: Comment on above: For patients on eltr ombopag therapy, use of Dimension Taylor TBIL is not recommended. Chloride [Moles/Vol] 111 mmol/L 98-107 [facility] Work Phone: Eosinophils/100 WBC (Bld) 0.2 % 0-5 [facility] Work Phone: Glucose [Mass/Vol] 92 mg/dL 74-106 [facility] Work Phone: Neutrophils (Bld) [#/Vol] 10.1 10*3/uL 2.0-7.7 [facility] Work Phone: Neutrophils/100 WBC (Bld) 83.7 % 47-70 [facility] Work Phone: Potassium [Moles/Vol] 3.8 mmol/L 3.5-5.1 [facility] Work Phone: Protein [Mass/Vol] 7.7 g/dL 6.4-8.2 [facility] Work Phone: Sodium [Moles/Vol] 142 mmol/L 136-145 [facility] Work Phone: [phone] WBC (Bld) [#/Vol] 12.1 10*3/uL 4.4-11.0 [facility] Work Phone: Blood erythrocytes count (nu mber/volume)on 07-29-2022 RBC (Bld) [#/Vol] 5.05 10*6/uL 4.6-6.2 [facility] Work Phone: Blood hemoglobin measurement (mass/volume)on 07-29-2022 Hemoglobin (Bld) [Mass/Vol] 16.6 g/dL 13.0-16. 5 [facility] Work Phone: [phone] Blood lymphocytes/100 leukoc yteson 07-29-2022 Lymphocytes/100 WBC (Bld) 7.9 % 19-41 [facility] Work Phone: [phone] Blood monocytes/100 leukocyt eson 07-29-2022 Monocytes/100 WBC (Bld) 7.4 % 0-10 [facility] Work Phone: Blood platelet mean volumeon 07-29-2022 Platelet mean volume (Bld) [Entitic vol] 10.0 fL 6.2-12.0 [facility] Work Phone: Determination of erythrocyte mean corpuscular volume (MCV)on 07-29-2022 MCV (RBC) [Entitic vol] 88.1 fL 80-94 [facility] Work Phone: Hematocrit Auto (Bld) [Volum e fraction]on 07-29-2022 Hematocrit (Bld) [Volume fraction] 44.5 % 40-54 [facility] Work Phone: Laboratory - Chemistry and C hemistry - challengeon 07-29-2022 ALP [Catalytic activity/Vol] 70 U/L 45-117 [facility] Work Phone: ALT [Catalytic activity/Vol] 26 U/L 16-61 [facility] Work Phone: [phone] CO2 [Moles/Vol] 24.0 mmol/L 21.0-32.0 [facility] Work Phone: [phone] Globulin (S) [Mass/Vol] 3.3 g/dL 2.2-4.2 [facility] Work Phone: [phone] Lipase [Catalytic activity/Vol] 73 U/L 73-393 [facility] Work Phone: [phone] Urea nitrogen/Creatinine [Mass ratio] 6.3 mg/mg 10-20 [facility] Work Phone: [phone] Laboratory - Hematology and Cell countson 07-29-2022 Erythrocyte distribution width (RBC) [Entitic vol] 37.4 fL 35.1-43.9 [facility] Work Phone: [phone] Erythrocyte distribution width (RBC) [Ratio] 11.8 % 11.6-14.6 [facility] Work Phone: [phone] Immature granulocytes/100 WBC (Bld) 0.500 % 0.0-0.9 [facility] Work Phone: [phone] Comment on above: IG% - Immature Granu locytes (promyelocytes, myelocytes and metamyelocytes) > 1% indicates that a LEFT SHIFT is Present. MCH (RBC) [Entitic mass] 32.9 pg 27.0-32.0 [facility] Work Phone: [phone] Nucleated RBC/100 WBC (Bld) [Ratio] 0 % 0-5 [facility] Work Phone: [phone] MCHC Auto (RBC) [Mass/Vol]on 07-29-2022 MCHC (RBC) [Mass/Vol] 37.3 g/dL 32-36 [facility] Work Phone: [phone] Panel Informationon 07-29 Estimated Creatinine Clearance Calc 91.48 ml/min [facility] Work Phone: [phone] Estimated GFR (MDRD) Amer 117 mL/min >60 [facility] Work Phone: [phone] Comment on above: GFR Calc Estimated GFR (MDRD) Non-Af Amer 96 mL/min >60 [facility] Work Phone: Comment on above: Non- GFR Calc Platelets bldon 07-29-2022 Platelets (Bld) [#/Vol] 176 10*3/uL 150-450 [facility] Work Phone: Serum or plasma albumin rosalia urement (mass/volume)on 07-29-2022 Albumin [Mass/Vol] 4.4 g/dL 3.2-5.0 [facility] Work Phone: Serum or plasma albumin/glob ulin mass ratioon 07-29-2022 Albumin/Globulin [Mass ratio] 1.3 {ratio} 0.9-2.4 [facility] Work Phone: Serum or plasma calcium rosalia urement (mass/volume)on 07-29-2022 Calcium [Mass/Vol] 9.1 mg/dL 8.5-10.1 [facility] Work Phone: Serum or plasma creatinine m easurement (mass/volume)on 07-29-2022 Creatinine [Mass/Vol] 0.94 mg/dL 0.70-1.30 [facility] Work Phone: Comment on above: The validity of the calculated GFR & GFRAA in patients over 70 years has not been determined. Clinical correlation is essential. Serum or plasma urea nitroge n measurement (mass/volume)on 07-29-2022 Urea nitrogen [Mass/Vol] 6 mg/dL 7-18 [facility] Work Phone: [phone] Thin prep Papanicolaou smear with manual screeningon 07-29-2022 Thin prep Papanicolaou smear with manual screening 23 U/L 15-37 [facility] Work Phone: Thin prep Papanicolaou smear with manual screening 7 5-15 [facility] Work Phone: CULTURE URINEon 05-04-2022 CULTURE URINE CULTURE URINE --> Status: F No growth (<1,000 CFU/ml). Normal [facility] Comment on above: Performed By: #### C /UR ####[address] [place] [address] Chlamydia and GC PCR Panelon 05-03-2022 Chlamydia and GC PCR Panel Chlamydia trachomatis PCR --> Status: F NOT Detected Chlamydia trachomatis Nucleic Acid NOT Detected by DNA Amplification using the CepIndiegogoid System. Culture is the only recommended test in medical-legal cases such as suspected child abuse or molestation. Chlamydia trachomatis Nucleic Acid NOT Detected by DNA Amplification using the Cepheid System. Culture is the only recommended test in medical-legal cases such as suspected child abuse or molestation. Neisseria gonorrhoeae PCR --> Status: F NOT Detected Neisseria gonorrhoeae Nucleic Acid NOT Detected by DNA Amplification using the CepIndiegogoid System. Culture is the only recommended test in medical-legal cases such as suspected child abuse or molestation. Neisseria gonorrhoeae Nucleic Acid NOT Detected by DNA Amplification using the Cepheid System. Culture is the only recommended test in medical-legal cases such as suspected child abuse or molestation. Normal [facility] Comment on above: Performed By: #### C TNGP ####[address] [place] [address] Complete Urinalysison 2021 Bacteria Few (1-5) Abnormal Negative [facility] Comment on above: Result Comment: . Performed By: #### C UA2 #### [facility] [address] [place] [address] RBC, Urine 11 - 25 Abnormal 0-2 [facility] Comment on above: Result Comment: . Performed By: #### C UA2 #### [facility] [address] [place] [address] Squamous Epithelial 3 - 5 Normal 3-5 [facility] Comment on above: Result Comment: . Performed By: #### C UA2 #### [facility] [address] [place] [address] VOLUME, URINE 12 ml Normal [facility] Comment on above: Result Comment: . Performed By: #### C UA2 #### [facility] [address] [place] [address] WBC, Urine 51 - 100 Abnormal 0-5 [facility] Comment on above: Result Comment: . Performed By: #### C UA2 #### [facility] [address] [place] [address] Appearance (U) Turbid Abnormal Clear [facility] Comment on above: Result Comment: . Performed By: #### C UA2 #### [facility] [address] [place] [address] Bilirubin,Urine Negative Normal Negative [facility] Comment on above: Result Comment: . Performed By: #### C UA2 #### [facility] [address] [place] [address] Color (U) LIGHT BROWN Abnormal Lt. Yellow [facility] Comment on above: Result Comment: . Performed By: #### C UA2 #### [facility] [address] [place] [address] Glucose Ql (U) Normal Normal Normal (<70) [facility] Comment on above: Result Comment: . Performed By: #### C UA2 #### [facility] [address] [place] [address] Ketone,Urine Negative Normal Negative [facility] Comment on above: Result Comment: . Performed By: #### C UA2 #### [facility] [address] [place] [address] Leukocytes,Urine 500 Analy/uL Abnormal Negative [facility] Comment on above: Result Comment: . Performed By: #### C UA2 #### [facility] [address] [place] [address] Nitrites,Urine Negative Normal Negative [facility] Comment on above: Result Comment: . Performed By: #### C UA2 #### [facility] [address] [place] [address] Occult Blood,Urine > 1.0 Abnormal Negative [facility] Comment on above: Result Comment: . Performed By: #### C UA2 #### [facility] [address] [place] [address] pH,Urine 6.0 Normal 5.0-8.0 [facility] Comment on above: Result Comment: . Performed By: #### C UA2 #### [facility] [address] [place] [address] Protein (U) [Mass/Vol] 70 mg/dL Abnormal Negative [facility] Comment on above: Result Comment: . Performed By: #### C UA2 #### [facility] [address] [place] [address] Specific [place],Urine < 1.005 Abnormal 1.005 - 1.030 [facility] Comment on above: Result Comment: . Performed By: #### C UA2 #### [address] [place] [address] Urobilinogen,Urine Normal Normal Normal (0-1) [facility] Comment on above: Result Comment: . Performed By: #### C UA2 #### [address] [place] [address] Urinalysison 05-02-2022 Appearance (U) Turbid Abnormal Clear NA [facility] Comment on above: . Bacteria, UA Few (1-5) Abnormal Negative /[HPF] [facility] Comment on above: . Bilirubin Urine Negative Negative mg/dL [facility] Comment on above: . Color (U) LIGHT BROWN Abnormal Lt. Yellow NA [facility] Comment on above: . Glucose, Ur Normal Normal (<70) mg/dL [facility] Comment on above: . Interpretation and review of laboratory results Abnormal [facility] Ketones Ql (U) Negative Negative mg/dL [facility] Comment on above: . LEUKOCYTES, UA 500 Abnormal Negative Analy/uL [facility] Comment on above: . Nitrite, Urine Negative Negative NA [facility] Comment on above: . Occult Blood,Urine mg/dL Abnormal Negative mg/dL [facility] Comment on above: . pH (U) 6.0 [pH] [facility] Comment on above: . Protein (U) [Mass/Vol] 70 mg/dL Abnormal Negative [facility] Comment on above: . RBC, UA /[HPF] Abnormal 0 - 2 /[HPF] [facility] Comment on above: . Specific [place], Urine Abnormal S [facility] Comment on above: . Squam Epithel, UA 3-5 3 - 5 /[HPF] [facility] Comment on above: . Urobilinogen, Urine Normal Normal (0-1) mg/dL [facility] Comment on above: . Volume 12 ml [facility] Comment on above: . WBC, UA /[HPF] Abnormal 0 - 5 /[HPF] [facility] Comment on above: . [facility], [address] , [place], [place] [address] [facility] CULTURE URINEon 03-31-2022 CULTURE URINE CULTURE URINE --> Status: F Insignificant growth based on current clinical guidelines. Normal [facility] Comment on above: Performed By: #### C /UR ####[id number] [place] [address] CBC with Auto Differentialon 03-28-2022 Absolute Baso # 0.0 10*3/uL 0.0 - 0.2 10*3/uL [facility] Absolute Neut # 5.1 10*3/uL 1.8 - 7.0 10*3/uL [facility] Basophils/100 WBC (Bld) 0.3 % 0.0 - 2.0 % [facility] Eosinophils (Bld) [#/Vol] 0.0 10*3/uL 0. 0 - 0.5 10*3/uL [facility] Eosinophils/100 WBC (Bld) 0.3 % Low 1.0 - 6.0 % [facility] Granulocytes/100 WBC (Bld) 73.8 % 4 0.0 - 80.0 % [facility] Hematocrit (Bld) [Volume fraction] 42.4 % 40.0 - 52.0 % [facility] Hemoglobin (Bld) [Mass/Vol] 15.4 g/dL 13.0 - 18.0 g/dL [facility] Interpretation and review of laboratory results Abnormal [facility] Lymphocytes (Bld) [#/Vol] 1.3 10*3/uL 1. 0 - 4.3 10*3/uL [facility] Lymphocytes/100 WBC (Bld) 18.2 % Low 20 .0 - 40.0 % [facility] MCH (RBC) [Entitic mass] 32.5 pg 26. 0 - 34.0 pg [facility] MCHC (RBC) [Mass/Vol] 36.3 % High 32.0 - 36.0 % [facility] MCV (RBC) [Entitic vol] 89.5 fL 80.0 - 98.0 fL [facility] Monocytes (Bld) [#/Vol] 0.5 10*3/uL 0.0 - 0.8 10*3/uL [facility] Monocytes/100 WBC (Bld) 7.1 % 2.0 - 10.0 % [facility] Platelet distribution width (Bld) [Ratio] 11.8 % 11.5 - 14.5 % [facility] Platelet mean volume (Bld) [Entitic vol] 10.1 fL 7.4 - 12.4 fL [facility] Comment on above: MPV is a calculated measurement using platelet volume ratio. Platelets (Bld) [#/Vol] 165 10*3/uL 140 - 440 10*3/uL [facility] RBC (Bld) [#/Vol] 4.74 10*6/uL 4.40 - 5.9 0 10*6/uL [facility] WBC (Bld) [#/Vol] 6.9 10*3/uL 3.6 - 10.7 10*3/uL [facility] Test Performed by [facility], [address] [place] [address]. , [address] LAB [facility] CT Abdomen and Pelvis W cont rast Kristen 03-28-2022 Patient Name: GILBERTO JOHNSON Computed Tomography ACCESSION EXAM DATE/TIME PROCEDURE ORDERING PROVIDER [id number] 03/28/2022 15:[address] Abdomen/Pelvis w/ IV MD ULICES, PEYTON Beltran Contrast (IV Onl CPT code 34765 Q9967 Reason For Exam (CT Abdomen/Pelvis w/ IV Contrast (IV Onl) hematuria, penile pain. patient concerned he has cancer. bladder mass? Kidney stone? Report CLINICAL INFORMATION: Hematuria. Pelvic and penile pain. CT ABDOMEN: 3 mm axial cuts are obtained from the dome of the liver through the iliac crests with 75 mL Isovue IV contrast. There are no comparison studies. FINDINGS: The lung bases are included on the examination and demonstrate no focal infiltrates or effusions. The heart size is within normal limits. The liver and spleen are homogeneous in their attenuation without focal abnormality. The pancreas and adrenal glands are normal. Both kidneys are identified in their cortical phase. There is no evidence of hydronephrosis or hydroureter. No free fluid is seen within the abdomen. CT PELVIS: 3 mm axial cuts are obtained from the iliac crests through the symphysis pubis with 75 mL Isovue IV contrast. There are no comparison studies. FINDINGS: There are nondistended loops of small bowel. Air and stool are identified within the colon to the level of the rectum. There is no evidence of obstruction. A normal-appearing appendix is seen in the right pelvis. The distal ureters and bladder are normal. No free fluid is seen within the pelvis. IMPRESSION: 1. No CT evidence of an acute abdominal/pelvic process. Report Dictated on --- Final --- Dictating Physician: MD MCDONOUGH JEFFREY Signed Date and Time: 03/28/2022 3:42 pm Signed by: MD MCDONOUGH JEFFREY Transcribed Date and Time: 03/28/2022 3:43 [facility] RAD Liam Mcdonough MD - 03/28/2022 Patient Name: GILBERTO JOHNSON Computed Tomography ACCESSION EXAM DATE/TIME PROCEDURE ORDERING PROVIDER [id number] 03/28/2022 15:[address] Abdomen/Pelvis w/ IV MD ELENA DOUGALAS R. Contrast (IV Onl CPT code 14820 Q9967 Reason For Exam (CT Abdomen/Pelvis w/ IV Contrast (IV Onl) hematuria, penile pain. patient concerned he has cancer. bladder mass? Kidney stone? Report CLINICAL INFORMATION: Hematuria. Pelvic and penile pain. CT ABDOMEN: 3 mm axial cuts are obtained from the dome of the liver through the iliac crests with 75 mL Isovue IV contrast. There are no comparison studies. FINDINGS: The lung bases are included on the examination and demonstrate no focal infiltrates or effusions. The heart size is within normal limits. The liver and spleen are homogeneous in their attenuation without focal abnormality. The pancreas and adrenal glands are normal. Both kidneys are identified in their cortical phase. There is no evidence of hydronephrosis or hydroureter. No free fluid is seen within the abdomen. CT PELVIS: 3 mm axial cuts are obtained from the iliac crests through the symphysis pubis with 75 mL Isovue IV contrast. There are no comparison studies. FINDINGS: There are nondistended loops of small bowel. Air and stool are identified within the colon to the level of the rectum. There is no evidence of obstruction. A normal-appearing appendix is seen in the right pelvis. The distal ureters and bladder are normal. No free fluid is seen within the pelvis. IMPRESSION: 1. No CT evidence of an acute abdominal/pelvic process. Report Dictated on --- Final --- Dictating Physician: MD MCDONOUGH JEFFREY Signed Date and Time: 03/28/2022 3:42 pm Signed by: MD MCDONOUGH JEFFREY Transcribed Date and Time: 03/28/2022 3:43 [facility] Work Phone: Radiology Study observation (narrative) [facility] Work Phone: CT Abdomen and Pelvis W cont rast IVOrdered By: Liam Mcdonough on 03-28-2022 [facility] Work Phone: CT Abdomen/Pelvis w/ Contras ton 03-28-2022 CT Abdomen/Pelvis w/ Contrast Patient Name: GILBERTO JOHNSON Computed Tomography ACCESSION EXAM DATE/TIME PROCEDURE ORDERING PROVIDER [id number] 03/28/2022 15:[address] Abdomen/Pelvis w/ IV MD ELENA DOUGALAS R. Contrast (IV Onl CPT code 78078 Q9967 Reason For Exam (CT Abdomen/Pelvis w/ IV Contrast (IV Onl) hematuria, penile pain. patient concerned he has cancer. bladder mass? Kidney stone? Report CLINICAL INFORMATION: Hematuria. Pelvic and penile pain. CT ABDOMEN: 3 mm axial cuts are obtained from the dome of the liver through the iliac crests with 75 mL Isovue IV contrast. There are no comparison studies. FINDINGS: The lung bases are included on the examination and demonstrate no focal infiltrates or effusions. The heart size is within normal limits. The liver and spleen are homogeneous in their attenuation without focal abnormality. The pancreas and adrenal glands are normal. Both kidneys are identified in their cortical phase. There is no evidence of hydronephrosis or hydroureter. No free fluid is seen within the abdomen. CT PELVIS: 3 mm axial cuts are obtained from the iliac crests through the symphysis pubis with 75 mL Isovue IV contrast. There are no comparison studies. FINDINGS: There are nondistended loops of small bowel. Air and stool are identified within the colon to the level of the rectum. There is no evidence of obstruction. A normal-appearing appendix is seen in the right pelvis. The distal ureters and bladder are normal. No free fluid is seen within the pelvis. IMPRESSION: 1. No CT evidence of an acute abdominal/pelvic process. Report Dictated on Final Dictating Physician: MD MCDONOUGH JEFFREY Signed Date and Time: 03/28/2022 3:42 pm Signed by: MD MCDONOUGH JEFFREY Transcribed Date and Time: 03/28/2022 3:43 Normal [facility] Comp Metabolic Panelon 03-28 ALP [Catalytic activity/Vol] 55 U/L Normal 38-126 [facility] Comment on above: Performed By: #### H EMDF, LIPA4, CMP3 ####[address] [place] [address] ALT [Catalytic activity/Vol] 14 U/L Normal 0-49 [facility] Comment on above: Result Comment: The ALT test is performed by an updated assay method. Please note that the reference intervals have been changed and are now sex specific. Performed By: #### H EMDF, LIPA4, CMP3 ####[address] [address] Calcium [Mass/Vol] 9.4 mg/dL Normal 8.4-10.4 [facility] Comment on above: Performed By: #### H EMDF, LIPA4, CMP3 ####[address] [address] Glucose [Mass/Vol] 87 mg/dL Normal 70-100 [facility] Comment on above: Performed By: #### H EMDF, LIPA4, CMP3 ####[address] [address] Protein [Mass/Vol] 7.6 g/dL Normal 6.3-8.2 [facility] Comment on above: Performed By: #### H EMDF, LIPA4, CMP3 ####[address] [address] Urea nitrogen [Mass/Vol] 7 mg/dL Normal 7-17 [facility] Comment on above: Performed By: #### H EMDF, LIPA4, CMP3 ####[facility] [place] [address] Anion gap [Moles/Vol] 7 mmol/L Normal 3-13 [facility] Comment on above: Performed By: #### H EMDF, LIPA4, CMP3 ####[facility] [place] [address] AST [Catalytic activity/Vol] 35 U/L Normal 15-46 [facility] Comment on above: Performed By: #### H EMDF, LIPA4, CMP3 ####[facility] [place] [address] Bilirubin [Mass/Vol] 1.5 mg/dL High 0.2-1.3 [facility] Comment on above: Performed By: #### H EMDF, LIPA4, CMP3 ####[facility] [place] [address] CO2 [Moles/Vol] 32 mmol/L High 22-30 [facility] Comment on above: Performed By: #### H EMDF, LIPA4, CMP3 ####[place] [address] [place] [address] Creatinine [Mass/Vol] 0.84 mg/dL Normal 0.52-1.25 [facility] Comment on above: Performed By: #### H EMDF, LIPA4, CMP3 ####[facility] [place] [address] eGFR OTHER > 90.0 Normal >60 [facility] Comment on above: Result Comment: KDIG O guidelines provide the following GFR categories: Stage GFR(ml/min/1.73 m2) Terms G1 >=90 Normal or high G2 60-89 Mildly decreased* G3a 45-59 Mildly to moderately decreased G3b 30-44 Moderately to severely decreased G4 15-29 Severely decreased G5 <15 Kidney failure *Relative to young adult level. In the absence of evidence of kidney damage, neither GFR category G1 nor G2 fulfill the criteria for CKD. The CKD-EPI equation is validated in individuals 18 years of age and older. Currently the best equation for estimating glomerular filtration rate (GFR) from serum creatinine in children is the Bedside Iglesias equation. It is less accurate in patients with extremes of muscle mass, restriction of dietary protein, ingestion of creatine, extra-renal metabolism of creatinine, or treatment with medications that affect renal tubular creatinine secretion. Performed By: #### H VETO BATRES, CMP3 ####[place] [address] [place] [address] GFR/1.73 sq M.predicted among blacks MDRD (S/P/Bld) [Vol rate/Area] mL/min/{1.73_m2} Normal >60 [facility] Comment on above: Performed By: #### H VETO BATRES, CMP3 ####[address] [place] [address] Potassium [Moles/Vol] 3.5 mmol/L Normal 3.5-5.1 [facility] Comment on above: Performed By: #### H VETO BATRES, CMP3 ####[address] [address] Sodium [Moles/Vol] 140 mmol/L Normal 135-145 [facility] Comment on above: Performed By: #### H VETO BATRES, CMP3 ####[address] [place] [address] Albumin [Mass/Vol] 4.5 g/dL Normal 3.5-5.0 [facility] Comment on above: Performed By: #### H VETO BATRES, CMP3 ####[place] [address] [place] [address] Chloride [Moles/Vol] 101 mmol/L Normal 98-107 [facility] Comment on above: Performed By: #### H VETO BATRES, CMP3 ####[address] [place] [address] Complete Urinalysison 2021 Appearance (U) Clear Normal Clear [facility] Comment on above: Result Comment: . Performed By: #### C UA2 #### [facility] [address] [place] [address] Bilirubin,Urine Negative Normal Negative [facility] Comment on above: Result Comment: . Performed By: #### C UA2 #### [facility] [address] [place] [address] Color (U) COLORLESS Normal Lt. Yellow [facility] Comment on above: Result Comment: . Performed By: #### C UA2 #### [facility] [address] [place] [address] Glucose Ql (U) Normal Normal Normal (<70) [facility] Comment on above: Result Comment: . Performed By: #### C UA2 #### [facility] [address] [place] [address] Ketone,Urine Negative Normal Negative [facility] Comment on above: Result Comment: . Performed By: #### C UA2 #### [facility] [address] [place] [address] Leukocytes,Urine Negative Normal Negative [facility] Comment on above: Result Comment: . Performed By: #### C UA2 #### [facility] [address] [place] [address] Nitrites,Urine Negative Normal Negative [facility] Comment on above: Result Comment: . Performed By: #### C UA2 #### [facility] [address] [place] [address] Occult Blood,Urine Negative Normal Negative [facility] Comment on above: Result Comment: . Performed By: #### C UA2 #### [facility] [address] [place] [address] pH,Urine 7.5 Normal 5.0-8.0 [facility] Comment on above: Result Comment: . Performed By: #### C UA2 #### [facility] [address] [place] [address] Specific [place],Urine < 1.005 Abnormal 1.005 - 1.030 [facility] Comment on above: Result Comment: . Performed By: #### C UA2 #### [facility] [address] [place] [address] Total Protein,Urine Negative Normal Negative [facility] Comment on above: Result Comment: . Performed By: #### C UA2 #### [facility] [address] [place] [address] Urobilinogen,Urine Normal Normal Normal (0-1) [facility] Comment on above: Result Comment: . Performed By: #### C UA2 #### [facility] [address] [place] [address] Comprehensive Metabolic Pane [facility] 03-28-2022 Albumin [Mass/Vol] 4.5 g/dL 3.5 - 5.0 g/dL [facility] ALP (Bld) [Catalytic activity/Vol] 55 U/L 38 - 126 U/L [facility] ALT [Catalytic activity/Vol] 14 U/L 0 - 49 U/L [facility] Comment on above: The ALT test is perf ormed by an updated assay method. Please note that the reference intervals have been changed and are now sex specific. Anion gap [Moles/Vol] 7 mmol/L 3 - 13 mmol/L [facility] AST [Catalytic activity/Vol] 35 U/L 15 - 46 U/L [facility] Bilirubin [Mass/Vol] 1.5 mg/dL High 0.2 - 1 .3 mg/dL [facility] Calcium [Mass/Vol] 9.4 mg/dL 8.4 - 10. 4 mg/dL [facility] Chloride [Moles/Vol] 101 mmol/L 98 - 10 7 mmol/L [facility] CO2 [Moles/Vol] 32 mmol/L High 22 - 30 mmol/L [facility] Creatinine [Mass/Vol] 0.84 mg/dL 0.52 - 1.25 mg/dL [facility] EGFR IF NonAfrican [place]ander >90.0 >60 mL/m in [facility] Comment on above: KDIGO guidelines pro vide the following GFR categories: Stage GFR(ml/min/1.73 m2) Terms G1 >=90 Normal or high G2 60-89 Mildly decreased* G3a 45-59 Mildly to moderately decreased G3b 30-44 Moderately to severely decreased G4 15-29 Severely decreased G5 <15 Kidney failure *Relative to young adult level. In the absence of evidence of kidney damage, neither GFR category G1 nor G2 fulfill the criteria for CKD. The CKD-EPI equation is validated in individuals 18 years of age and older. Currently the best equation for estimating glomerular filtration rate (GFR) from serum creatinine in children is the Bedside Iglesias equation. It is less accurate in patients with extremes of muscle mass, restriction of dietary protein, ingestion of creatine, extra-renal metabolism of creatinine, or treatment with medications that affect renal tubular creatinine secretion. Free PSA/Total PSA [Mass fraction] 7.6 g/dL 6.3 - 8.2 g/dL [facility] GFR/1.73 sq M.predicted among blacks MDRD (S/P/Bld) [Vol rate/Area] mL/min/{1.73_m2} >60 mL/min [facility] Glucose [Mass/Vol] 87 mg/dL 70 - 100 mg/dL [facility] Interpretation and review of laboratory results Abnormal [facility] Potassium [Moles/Vol] 3.5 mmol/L 3.5 - 5.1 mmol/L [facility] Sodium [Moles/Vol] 140 mmol/L 135 - 145 mmol/L [facility] Urea nitrogen (BldV) [Mass/Vol] 7 mg/dL 7 - 17 mg/dL [facility] Hem[facility] w/ Autodiffon 03-28 Abs Baso Cnt 0.0 10*3/uL Normal 0.0-0.2 [facility] Comment on above: Performed By: #### H GISEL LIPA4, CMP3 #### [facility] [address] [place] [address] Abs Neutrophile Cnt 5.1 10*3/uL Normal 1.8-7.0 [facility] Comment on above: Performed By: #### H EMDF LIPA4, CMP3 #### [facility] [address] [place] [address] Basophils/100 WBC (Bld) 0.3 % Normal 0.0-2.0 [facility] Comment on above: Performed By: #### H EMDSohail LIPA4, CMP3 #### [facility] [address] [place] [address] Eosinophils (Bld) [#/Vol] 0.0 10*3/uL Normal 0.0-0.5 [facility] Comment on above: Performed By: #### H EMDF LIPA4, CMP3 #### [facility] [address] [place] [address] Eosinophils/100 WBC (Bld) 0.3 % Low 1.0-6.0 [facility] Comment on above: Performed By: #### H EMDF, LIPA4, CMP3 #### [facility] [address] [place] [address] Erythrocyte distribution width (RBC) [Ratio] 11.8 % Normal 11.5-14.5 [facility] Comment on above: Performed By: #### H EMDF, LIPA4, CMP3 #### [facility] [address] [place] [address] Granulocytes/100 WBC (Bld) 73.8 % Normal 40.0-80.0 [facility] Comment on above: Performed By: #### H EMDF, LIPA4, CMP3 #### [facility] [address] [place] [address] Hematocrit (Bld) [Volume fraction] 42.4 % Normal 40.0-52.0 [facility] Comment on above: Performed By: #### H EMDF, LIPA4, CMP3 #### [facility] [address] [place] [address] Hemoglobin (Bld) [Mass/Vol] 15.4 g/dL Normal 13.0-18. 0 [facility] Comment on above: Performed By: #### H EMDF, LIPA4, CMP3 #### [facility] [address] [place] [address] Lymphocytes (Bld) [#/Vol] 1.3 10*3/uL Normal 1.0-4.3 [facility] Comment on above: Performed By: #### H EMDF, LIPA4, CMP3 #### [facility] [address] [place] [address] Lymphocytes/100 WBC (Bld) 18.2 % Low 20.0-40.0 [facility] Comment on above: Performed By: #### H EMDF, LIPA4, CMP3 #### [facility] [address] [place] [address] MCH (RBC) [Entitic mass] 32.5 pg Normal 26.0-34.0 [facility] Comment on above: Performed By: #### H EMDF, LIPA4, CMP3 #### [facility] [address] [place] [address] MCHC 36.3 % High 32.0-36.0 [facility] Comment on above: Performed By: #### H EMDF, LIPA4, CMP3 #### [facility] [address] [place] [address] MCV (RBC) [Entitic vol] 89.5 fL Normal 80.0-98.0 [facility] Comment on above: Performed By: #### H EMDF, LIPA4, CMP3 #### [facility] [address] [place] [address] Monocytes (Bld) [#/Vol] 0.5 10*3/uL Normal 0.0-0.8 [facility] Comment on above: Performed By: #### H EMDF, LIPA4, CMP3 #### [facility] [address] [place] [address] Monocytes/100 WBC (Bld) 7.1 % Normal 2.0-10.0 [facility] Comment on above: Performed By: #### H EMDF, LIPA4, CMP3 #### [facility] [address] [place] [address] Platelet mean volume (Bld) [Entitic vol] 10.1 fL Normal 7.4-12.4 [facility] Comment on above: Result Comment: MPV is a calculated measurement using platelet volume ratio. Performed By: #### H EMDF, LIPA4, CMP3 #### [facility] [address] [place] [address] Platelets (Bld) [#/Vol] 165 10*3/uL Normal 140-440 [facility] Comment on above: Performed By: #### H EMDF, LIPA4, CMP3 #### [facility] [address] [place] [address] RBC (Bld) [#/Vol] 4.74 10*6/uL Normal 4.40-5.90 [facility] Comment on above: Performed By: #### H EMDF, LIPA4, CMP3 #### [facility] [address] [place] [address] WBC (Bld) [#/Vol] 6.9 10*3/uL Normal 3.6-10.7 [facility] Comment on above: Performed By: #### H EMDF, LIPA4, CMP3 #### [facility] [address] [place] [address] Lipaseon 03-28-2022 Lipase [Catalytic activity/Vol] 44 U/L Normal 23-300 [facility] Comment on above: Performed By: #### H EMDF, LIPA4, CMP3 ####[facility] [place] [address] Lipase [Catalytic activity/Vol] 44 U/L 23 - 300 U/L [facility] No Panel Informationon 03-28 Test Performed by [facility], [address] , [address] LAB [facility] 03-28-2022 Appearance (U) Clear Clear NA [facility] Comment on above: . Bilirubin Urine Negative Negative mg/dL [facility] Comment on above: . Color (U) COLORLESS Lt. Yellow NA [facility] Comment on above: . Glucose, Ur Normal Normal (<70) mg/dL [facility] Comment on above: . Interpretation and review of laboratory results Abnormal [facility] Ketones Ql (U) Negative Negative mg/dL [facility] Comment on above: . LEUKOCYTES, UA Negative Negative Analy/uL [facility] Comment on above: . Nitrite, Urine Negative Negative NA [facility] Comment on above: . Occult Blood,Urine Negative Negative mg/dL [facility] Comment on above: . pH (U) 7.5 [pH] [facility] Comment on above: . Specific [place], Urine <1.005 Abnormal S [facility] Comment on above: . Total Protein, Urine Negative Negativ e mg/dL [facility] Comment on above: . Urobilinogen, Urine Normal Normal (0-1) mg/dL [facility] Comment on above: . Test Performed by [facility], [address] , [address] LAB [facility] UA DIP, URINE (POC)on 2021 BILIRUBIN UA (POCT) Negative Negative [facility] CLARITY UA (POCT) Clear [facility] COLOR UA (POCT) Yellow [facility] GLUCOSE UA (POCT) Negative Negative mg/dL [facility] HEMOGLOBIN/BLOOD UA (POCT) Trace-lysed Abnormal Negative [facility] KETONE UA (POCT) Negative Negative mg/dL [facility] LEUKOCYTES UA (POCT) Negative Negative [facility] NITRITE UA (POCT) Negative Negative [facility] PH UA (POCT) 7.5 4.5 - 8.0 [facility] Protein Ql (U) Negative Negative mg/dL [facility] SPECIFIC GRAVITY UA (POCT) 1.015 1 .005 - 1.030 [facility] UROBILINOGEN UA (POCT) 0.2 E.U./dL Martha l E.U./dL [facility] Chlamydia and GC PCR Panelon 03-24-2022 Chlamydia and GC PCR Panel Chlamydia trachomatis PCR --> Status: F NOT Detected Chlamydia trachomatis Nucleic Acid NOT Detected by DNA Amplification using the pinnacle-ecs System. Culture is the only recommended test in medical-legal cases such as suspected child abuse or molestation. Chlamydia trachomatis Nucleic Acid NOT Detected by DNA Amplification using the Sidenseid System. Culture is the only recommended test in medical-legal cases such as suspected child abuse or molestation. Neisseria gonorrhoeae PCR --> Status: F NOT Detected Neisseria gonorrhoeae Nucleic Acid NOT Detected by DNA Amplification using the pinnacle-ecs System. Culture is the only recommended test in medical-legal cases such as suspected child abuse or molestation. Neisseria gonorrhoeae Nucleic Acid NOT Detected by DNA Amplification using the Sidenseid System. Culture is the only recommended test in medical-legal cases such as suspected child abuse or molestation. Normal [facility] Comment on above: Performed By: #### C UA2 #### [facility] [address] [place] [address] #### CTNGP #### [facility] [address] [place] [address] Complete Urinalysison 2021 Appearance (U) Clear Normal Clear [facility] Comment on above: Result Comment: . Performed By: #### C UA2 #### [facility] [address] [place] [address] #### CTNGP #### [facility] [address] [place], [place] Bilirubin,Urine Negative Normal Negative [facility] Comment on above: Result Comment: . Performed By: #### C UA2 #### [facility] [address] [place] [address] #### CTNGP #### [place] [address] [address] [place], [place] Color (U) COLORLESS Normal Lt. Yellow [facility] Comment on above: Result Comment: . Performed By: #### C UA2 #### [address] [place] [address] #### CTNGP #### [place] [address] [place], [place] Glucose Ql (U) Normal Normal Normal (<70) [facility] Comment on above: Result Comment: . Performed By: #### C UA2 #### [address] [place] [address] #### CTNGP #### [place] [address] [address] [place], [place] Ketone,Urine Negative Normal Negative [facility] Comment on above: Result Comment: . Performed By: #### C UA2 #### [address] [place] [address] #### CTNGP #### [place] [address] [place] [place], [place] Leukocytes,Urine Negative Normal Negative [facility] Comment on above: Result Comment: . Performed By: #### C UA2 #### [facility] [address] [place] [address] #### CTNGP #### [place] [address] [place], [place] Nitrites,Urine Negative Normal Negative [facility] Comment on above: Result Comment: . Performed By: #### C UA2 #### [facility] [address] [place] [address] #### CTNGP #### [facility] [address] [place] [address] Occult Blood,Urine Negative Normal Negative [facility] Comment on above: Result Comment: . Performed By: #### C UA2 #### [facility] [address] [address] #### CTNGP #### [facility] [address] [place], [place] pH,Urine 7.5 Normal 5.0-8.0 [facility] Comment on above: Result Comment: . Performed By: #### C UA2 #### [address] [place] [address] #### CTNGP #### [place] [address] [place] [place], [place] Specific [place],Urine < 1.005 Abnormal 1.005 - 1.030 [facility] Comment on above: Result Comment: . Performed By: #### C UA2 #### [address] [place] [address] #### CTNGP #### [place] [address] [place] [place], [place] Total Protein,Urine Negative Normal Negative [facility] Comment on above: Result Comment: . Performed By: #### C UA2 #### [address] [place] [address] #### CTNGP #### [place] [address] [place] [address] Urobilinogen,Urine Normal Normal Normal (0-1) [facility] Comment on above: Result Comment: . Performed By: #### C UA2 #### [facility] [address] [place] [address] #### CTNGP #### [place] [address] [place] [place], [place] UrinalysisOrdered By: Fausto Caruso on 03-23-2022 Appearance (U) Clear Clear NA [facility] Work Phone: Comment on above: . Bilirubin Urine Negative Negative mg/dL [facility] Work Phone: Comment on above: . Color (U) COLORLESS Lt. Yellow NA [facility] Work Phone: Comment on above: . Glucose, Ur Normal Normal (<70) mg/dL [facility] Work Phone: Comment on above: . Interpretation and review of laboratory results Abnormal [facility] Work Phone: Ketones Ql (U) Negative Negative mg/dL [facility] Work Phone: Comment on above: . LEUKOCYTES, UA Negative Negative Analy/uL [facility] Work Phone: Comment on above: . Nitrite, Urine Negative Negative NA [facility] Work Phone: Comment on above: . Occult Blood,Urine Negative Negative mg/dL [facility] Work Phone: Comment on above: . pH (U) 7.5 [pH] [facility] Work Phone: Comment on above: . Specific [place], Urine <1.005 Abnormal [facility] Work Phone: Comment on above: . Total Protein, Urine Negative Negativ e mg/dL [facility] Work Phone: Comment on above: . Urobilinogen, Urine Normal Normal (0-1) mg/dL [facility] Work Phone: Comment on above: . [facility] Work Phone: Urinalysison 03-23-2022 [facility], [address] , [address] LAB Chlamydia and GC PCR Panelon 03-18-2022 Chlamydia and GC PCR Panel Chlamydia trachomatis PCR --> Status: F NOT Detected Chlamydia trachomatis Nucleic Acid NOT Detected by DNA Amplification using the pinnacle-ecs System. Culture is the only recommended test in medical-legal cases such as suspected child abuse or molestation. Chlamydia trachomatis Nucleic Acid NOT Detected by DNA Amplification using the CepIndiegogoid System. Culture is the only recommended test in medical-legal cases such as suspected child abuse or molestation. Neisseria gonorrhoeae PCR --> Status: F NOT Detected Neisseria gonorrhoeae Nucleic Acid NOT Detected by DNA Amplification using the pinnacle-ecs System. Culture is the only recommended test in medical-legal cases such as suspected child abuse or molestation. Neisseria gonorrhoeae Nucleic Acid NOT Detected by DNA Amplification using the Sidenseid System. Culture is the only recommended test in medical-legal cases such as suspected child abuse or molestation. Normal [facility] Comment on above: Performed By: #### C TNGP ####[facility] [place] [address] Complete Urinalysison 2021 Appearance (U) Clear Normal Clear [facility] Comment on above: Result Comment: . Performed By: #### C UA2 #### [facility] [address] [place] [address] Bilirubin,Urine Negative Normal Negative [facility] Comment on above: Result Comment: . Performed By: #### C UA2 #### [facility] [address] [place] [address] Color (U) LIGHT YELLOW Normal Lt. Yellow [facility] Comment on above: Result Comment: . Performed By: #### C UA2 #### [facility] [address] [place] [address] Glucose Ql (U) Normal Normal Normal (<70) [facility] Comment on above: Result Comment: . Performed By: #### C UA2 #### [facility] [address] [place] [address] Ketone,Urine Negative Normal Negative [facility] Comment on above: Result Comment: . Performed By: #### C UA2 #### [facility] [address] [place] [address] Leukocytes,Urine Negative Normal Negative [facility] Comment on above: Result Comment: . Performed By: #### C UA2 #### [facility] [address] [place] [address] Nitrites,Urine Negative Normal Negative [facility] Comment on above: Result Comment: . Performed By: #### C UA2 #### [facility] [address] [place] [address] Occult Blood,Urine Negative Normal Negative [facility] Comment on above: Result Comment: . Performed By: #### C UA2 #### [facility] [address] [place] [place] [address] pH,Urine 6.0 Normal 5.0-8.0 [facility] Comment on above: Result Comment: . Performed By: #### C UA2 #### [address] [place] [address] Specific [place],Urine 1.009 Normal 1.005 - 1.030 [facility] Comment on above: Result Comment: . Performed By: #### C UA2 #### [facility] [address] [address] Total Protein,Urine Negative Normal Negative [facility] Comment on above: Result Comment: . Performed By: #### C UA2 #### [address] [place] [address] Urobilinogen,Urine Normal Normal Normal (0-1) [facility] Comment on above: Result Comment: . Performed By: #### C UA2 #### [address] [place] [address] Urinalysison 03-17-2022 Appearance (U) Clear Clear NA [facility] Comment on above: . Bilirubin Urine Negative Negative mg/dL [facility] Comment on above: . Color (U) LIGHT YELLOW Lt. Yellow NA [facility] Comment on above: . Glucose, Ur Normal Normal (<70) mg/dL [facility] Comment on above: . Ketones Ql (U) Negative Negative mg/dL [facility] Comment on above: . LEUKOCYTES, UA Negative Negative Analy/uL [facility] Comment on above: . Nitrite, Urine Negative Negative NA [facility] Comment on above: . Occult Blood,Urine Negative Negative mg/dL [facility] Comment on above: . pH (U) 6.0 [pH] [facility] Comment on above: . Specific [place], Urine 1.009 [facility] Comment on above: . Total Protein, Urine Negative Negativ e mg/dL [facility] Comment on above: . Urobilinogen, Urine Normal Normal (0-1) mg/dL [facility] Comment on above: . Test Performed by [facility], [address] , [place], [place] [id number] [place] [address] LAB [facility] .Urinalysis Microscopic (AO) on 12-19-2021 UA Bacteria Trace Abnormal [facility] ([place]) Comment on above: Performed By: #### U AMICAO, UA #### [facility] [address], [place] [address] UA RBC 0-5 Abnormal None Seen [facility] ([place]) Comment on above: Performed By: #### U AMICAO, UA #### [facility] [address], [place] [address] UA Squam Epithelial None Seen Normal None Seen [facility] ([place]) Comment on above: Performed By: #### U AMICAO, UA #### [facility] [address], [place] [address] UA WBC 0-5 Abnormal None Seen [facility] ([place] Comment on above: Performed By: #### U AMICAO, UA #### [facility] [address], [place] [address] LABORATORYOrdered By: Modesto Tam on 12-19-2021 Appearance (U) Clear (12/19/21 9:44 AM) Invalid Interpretation Code Clear AO Auto Urine SS Bacteria LM.HPF (Urine sed) [#/Area] Trace /HPF Invalid Interpretation Code AO Auto Urine SS Bilirubin Ql (U) Small *ABN* (12/19/21 9:44 AM) Invalid Interpretation Code Negative AO Auto Urine SS Color (U) Ruchi Invalid Interpretation Code AO Auto Urine SS Glucose Test strip (U) [Mass/Vol] 100 mg/dL Invalid Interpretation Code Negativemg/ dL AO Auto Urine SS Hemoglobin Auto test strip (U) [Mass/Vol] Trace *ABN* (12/19/21 9:44 AM) Invalid Interpretation Code Negative AO Auto Urine SS Ketones Ql (U) Trace mg/dL Invalid Interpretation Code Negativemg/ dL AO Auto Urine SS UA Leuk Est Negative (12/19/21 9:44 AM) Invalid Interpretation Code Negative AO Auto Urine SS UA Nitrite Positive *ABN* (12/19/21 9:44 AM) Invalid Interpretation Code Negative AO Auto Urine SS UA pH 5.0 (12/19/21 9:44 AM) Invalid Interpretation Code 5.0 - 8.0 AO Auto Urine SS UA Protein Trace mg/dL Invalid Interpretation Code Negativemg/ dL AO Auto Urine SS UA RBC 0-5 /HPF Invalid Interpretation Code None Seen/HPF AO Auto Urine SS UA Spec Grav 1.025 (12/19/21 9:44 AM) Invalid Interpretation Code 1.015-1.025 AO Auto Urine SS UA Specimen Type Clean Catch (12/19/21 9:44 AM) Invalid Interpretation Code AO Auto Urine SS UA Squam Epithelial None Seen /HPF Invalid Interpretation Code None Seen/HPF AO Auto Urine SS UA Urobilinogen 1.0 E.U./dL Invalid Interpretation Code 0.2-1.0E.U. /dL AO Auto Urine SS WBC LM.HPF (Urine sed) [#/Area] 0-5 /HPF Invalid Interpretation Code None Seen/HPF AO Auto Urine SS UAon 12-19-2021 Color (U) Ruchi Normal [facility] ([place]) Comment on above: Performed By: #### U AMICAO, UA #### [place] [id number] Glucose (U) [Mass/Vol] 100 mg/dL Abnormal Negative [facility] ([place]) Comment on above: Performed By: #### U AMICAO, UA #### [facility] [address] [address] Ketones Ql (U) Trace Abnormal Negative [facility] ([place] Comment on above: Performed By: #### U AMICAO, UA #### [address] [address] UA Appear Clear Normal Clear [facility] ([place] Comment on above: Performed By: #### U AMICAO, UA #### [facility] [address] [address] UA Bili Small Abnormal Negative [facility] ([place]) Comment on above: Performed By: #### U AMICAO, UA #### [facility] [address] [address] UA Blood Trace Abnormal Negative [facility] ([place] Comment on above: Performed By: #### U AMICAO, UA #### [facility] [address] [address] UA Leuk Est Negative Normal Negative [facility] ([place] Comment on above: Performed By: #### U AMICAO, UA #### [facility] [address] [address] UA Nitrite Positive Abnormal Negative [facility] ([place] Comment on above: Performed By: #### U AMICAO, UA #### [facility] [address] [address] UA pH 5.0 Normal 5.0 - 8.0 [facility] ([place]) Comment on above: Performed By: #### U AMICAO, UA #### [facility] [address] [address] UA Protein Trace Normal Negative [facility] ([place]) Comment on above: Performed By: #### U AMICAO, UA #### [facility] [address] [address] UA Spec Grav 1.025 Normal 1.015-1.025 [facility] ([place]) Comment on above: Performed By: #### U AMICAO, UA #### [facility] [address] [address] UA Specimen Type Clean Catch Normal [facility] ([place]) Comment on above: Performed By: #### U AMICAO, UA #### [facility] [place] [id number] UA Urobilinogen 1.0 E.U./dL Normal 0.2-1.0 [facility] ([place]) Comment on above: Performed By: #### U AMICAO, UA #### [facility] [address] [address] CR Chest Portableon 12-16-19 22 CR Chest Portable Patient Name: GILBERTO JOHNSON Diagnostic Radiology ACCESSION EXAM DATE/TIME PROCEDURE ORDERING PROVIDER [id number] 12/15/2021 21:42 EDT CR Chest Portable HAYDEN IVAN CPT code 52224 Reason For Exam (CR Chest Portable) fever Report CHEST PORTABLE CLINICAL INDICATION: fever TECHNIQUE: Portable chest x-ray(s). COMPARISON: August,. FINDINGS: Cardiac and mediastinal silhouette within normal limits. Lungs are grossly clear. No significant vascular congestion. No apparent pleural effusion or pneumothorax. Bony thorax grossly unremarkable. IMPRESSION: 1. No acute consolidation. Report Dictated on Workstation: SAMSON Final Dictating Physician: MD MATOS WENDELL Signed Date and Time: 12/15/2021 9:54 pm Signed by: MD MATOS WENDELL Transcribed Date and Time: 12/15/2021 9:56 Normal [facility] Comp Metabolic Panelon 12-15 ALP [Catalytic activity/Vol] 63 U/L Normal 38-126 [facility] Comment on above: Performed By: #### C MP3, HEMDF #### [facility] [address] [place] [address] ALT [Catalytic activity/Vol] 15 U/L Normal 0-49 [facility] Comment on above: Result Comment: The ALT test is performed by an updated assay method. Please note that the reference intervals have been changed and are now sex specific. Performed By: #### C MP3, HEMDF #### [facility] [address] [place] [address] AST [Catalytic activity/Vol] 28 U/L Normal 15-46 [facility] Comment on above: Performed By: #### C MP3, HEMDF #### [facility] [address] [place] [address] Calcium [Mass/Vol] 9.6 mg/dL Normal 8.4-10.4 [facility] Comment on above: Performed By: #### C MP3, HEMDF #### [facility] [address] [place] [address] Glucose [Mass/Vol] 104 mg/dL High 70-100 [facility] Comment on above: Performed By: #### C MP3, HEMDF #### [facility] [address] [place] [address] Protein [Mass/Vol] 7.5 g/dL Normal 6.3-8.2 [facility] Comment on above: Performed By: #### C MP3, HEMDF #### [facility] [address] [place] [address] Urea nitrogen [Mass/Vol] 3 mg/dL Low 7-17 [facility] Comment on above: Performed By: #### C MP3, HEMDF #### [facility] [address] [place] [address] Anion gap [Moles/Vol] 8 mmol/L Normal 3-13 [facility] Comment on above: Performed By: #### C MP3, HEMDF #### [facility] [address] [place] [address] Bilirubin [Mass/Vol] 0.8 mg/dL Normal 0.2-1.3 [facility] Comment on above: Performed By: #### C MP3, HEMDF #### [facility] [address] [place] [address] CO2 [Moles/Vol] 27 mmol/L Normal 22-30 [facility] Comment on above: Performed By: #### C MP3, HEMDF #### [facility] [address] [place] [address] Creatinine [Mass/Vol] 0.83 mg/dL Normal 0.52-1.25 [facility] Comment on above: Performed By: #### C MP3, HEMDF #### [facility] [address] [place] [address] eGFR OTHER > 90.0 Normal >60 [facility] Comment on above: Result Comment: KDIG O guidelines provide the following GFR categories: Stage GFR(ml/min/1.73 m2) Terms G1 >=90 Normal or high G2 60-89 Mildly decreased* G3a 45-59 Mildly to moderately decreased G3b 30-44 Moderately to severely decreased G4 15-29 Severely decreased G5 <15 Kidney failure *Relative to young adult level. In the absence of evidence of kidney damage, neither GFR category G1 nor G2 fulfill the criteria for CKD. The CKD-EPI equation is validated in individuals 18 years of age and older. Currently the best equation for estimating glomerular filtration rate (GFR) from serum creatinine in children is the Bedside Iglesias equation. It is less accurate in patients with extremes of muscle mass, restriction of dietary protein, ingestion of creatine, extra-renal metabolism of creatinine, or treatment with medications that affect renal tubular creatinine secretion. Performed By: #### C MP3, HEMDF #### [facility] [address] [place] [address] GFR/1.73 sq M.predicted among blacks MDRD (S/P/Bld) [Vol rate/Area] mL/min/{1.73_m2} Normal >60 [facility] Comment on above: Performed By: #### C MP3, HEMDF #### [facility] [address] [place] [address] Albumin [Mass/Vol] 4.6 g/dL Normal 3.5-5.0 [facility] Comment on above: Performed By: #### C MP3, HEMDF #### [facility] [address] [place] [address] Chloride [Moles/Vol] 104 mmol/L Normal 98-107 [facility] Comment on above: Performed By: #### C OLIVIA3, HEMDF #### [facility] [address] [place] [address] Potassium [Moles/Vol] 3.9 mmol/L Normal 3.5-5.1 [facility] Comment on above: Performed By: #### C MP3, HEMDF #### [facility] [address] [place] [address] Sodium [Moles/Vol] 138 mmol/L Normal 135-145 [facility] Comment on above: Performed By: #### C MP3, HEMDF #### [facility] [address] [place] [address] Hemogram w/ Autodiffon 12-15 Abs Baso Cnt 0.0 10*3/uL Normal 0.0-0.2 [facility] Comment on above: Performed By: #### C MP3, HEMDF #### [facility] [address] [place] [address] Abs Neutrophile Cnt 3.3 10*3/uL Normal 1.8-7.0 [facility] Comment on above: Performed By: #### C MP3, HEMDF #### [facility] [address] [place] [address] Basophils/100 WBC (Bld) 0.7 % Normal 0.0-2.0 [facility] Comment on above: Performed By: #### C MP3, HEMDF #### [facility] [address] [place] [address] Eosinophils (Bld) [#/Vol] 0.0 10*3/uL Normal 0.0-0.5 [facility] Comment on above: Performed By: #### C MP3, HEMDF #### [facility] [address] [place] [place] [address] Eosinophils/100 WBC (Bld) 0.3 % Low 1.0-6.0 [facility] Comment on above: Performed By: #### C MP3, HEMDF #### [facility] [address] [place] [address] Erythrocyte distribution width (RBC) [Ratio] 13.3 % Normal 11.5-14.5 [facility] Comment on above: Performed By: #### C MP3, HEMDF #### [facility] [address] [place] [place] [address] Granulocytes/100 WBC (Bld) 62.9 % Normal 40.0-80.0 [facility] Comment on above: Performed By: #### C MP3, HEMDF #### [facility] [address] [place] [address] Hematocrit (Bld) [Volume fraction] 44.3 % Normal 40.0-52.0 [facility] Comment on above: Performed By: #### C MP3, HEMDF #### [facility] [address] [place] [address] Hemoglobin (Bld) [Mass/Vol] 15.6 g/dL Normal 13.0-18. 0 [facility] Comment on above: Performed By: #### C MP3, HEMDF #### [facility] [address] [place] [address] Lymphocytes (Bld) [#/Vol] 1.4 10*3/uL Normal 1.0-4.3 [facility] Comment on above: Performed By: #### C MP3, HEMDF #### [facility] [address] [place] [address] Lymphocytes/100 WBC (Bld) 26.9 % Normal 20.0-40.0 [facility] Comment on above: Performed By: #### C MP3, HEMDF #### [facility] [address] [place] [address] MCH (RBC) [Entitic mass] 31.4 pg Normal 26.0-34.0 [facility] Comment on above: Performed By: #### C MP3, HEMDF #### [facility] [address] [place] [address] MCHC 35.1 % Normal 32.0-36.0 [facility] Comment on above: Performed By: #### C MP3, HEMDF #### [facility] [address] [place] [address] MCV (RBC) [Entitic vol] 89.3 fL Normal 80.0-98.0 [facility] Comment on above: Performed By: #### C MP3, HEMDF #### [facility] [address] [place] [address] Monocytes (Bld) [#/Vol] 0.5 10*3/uL Normal 0.0-0.8 [facility] Comment on above: Performed By: #### C MP3, HEMDF #### [facility] [address] [place] [address] Monocytes/100 WBC (Bld) 9.2 % Normal 2.0-10.0 [facility] Comment on above: Performed By: #### C MP3, HEMDF #### [facility] [address] [place] [address] Platelet mean volume (Bld) [Entitic vol] 7.7 fL Normal 7.4-10.4 [facility] Comment on above: Performed By: #### C MP3, HEMDF #### [facility] [address] [place] [address] Platelets (Bld) [#/Vol] 218 10*3/uL Normal 140-440 [facility] Comment on above: Performed By: #### C MP3, HEMDF #### [facility] [address] [place] [place] [address] RBC (Bld) [#/Vol] 4.96 10*6/uL Normal 4.40-5.90 [facility] Comment on above: Performed By: #### C MP3, HEMDF #### [facility] [address] [place] [address] WBC (Bld) [#/Vol] 5.2 10*3/uL Normal 3.6-10.7 [facility] Comment on above: Performed By: #### C MP3, HEMDF #### [facility] [address] [place] [address] CR Chest Portableon 08-16-20 21 CR Chest Portable Patient Name: GILBERTO JOHNSON Diagnostic Radiology ACCESSION EXAM DATE/TIME PROCEDURE ORDERING PROVIDER [id number] 08/16/2021 18:25 EST CR Chest Portable MD HARJIT, FLORECITA Haji CPT code 00706 Reason For Exam (CR Chest Portable) shortness of breath, previous covid Report PORTABLE CHEST: INDICATION: Shortness of breath COMPARISON: No previous studies are available for comparison. Obtained at 1824 hours. A single portable AP radiograph of the chest was obtained. The heart is normal in size. The mediastinal silhouette is normal. The lungs are clear. There are no effusions or infiltrates. There is no pleural thickening. The osseous structures are unremarkable. IMPRESSION: No acute process. Report Dictated on Final Dictating Physician: DO OLIVO ALFRED Signed Date and Time: 08/16/2021 6:37 pm Signed by: DO OLIVO ALFRED Transcribed Date and Time: 08/16/2021 6:38 Normal [facility] XR CHEST PORTABLEon 08-16-20 21 Patient Name: GILBERTO JOHNSON Diagnostic Radiology ACCESSION EXAM DATE/TIME PROCEDURE ORDERING PROVIDER [id number] 08/16/2021 18:25 EST CR Chest Portable MD LOMBARDI DAVID C. CPT code 76883 Reason For Exam (CR Chest Portable) shortness of breath, previous covid Report PORTABLE CHEST: INDICATION: Shortness of breath COMPARISON: No previous studies are available for comparison. Obtained at 1824 hours. A single portable AP radiograph of the chest was obtained. The heart is normal in size. The mediastinal silhouette is normal. The lungs are clear. There are no effusions or infiltrates. There is no pleural thickening. The osseous structures are unremarkable. IMPRESSION: No acute process. Report Dictated on --- Final --- Dictating Physician: DO OLIVO ALFRED Signed Date and Time: 08/16/2021 6:37 pm Signed by: DO OLIVO ALFRED Transcribed Date and Time: 08/16/2021 6:38 [facility] Benny Olivo DO - 08/16/2021 Patient Name: GILBERTO JOHNSON Diagnostic Radiology ACCESSION EXAM DATE/TIME PROCEDURE ORDERING PROVIDER [id number] 08/16/2021 18:25 EST CR Chest Portable MD LOMBARDI DAVID C. CPT code 98080 Reason For Exam (CR Chest Portable) shortness of breath, previous covid Report PORTABLE CHEST: INDICATION: Shortness of breath COMPARISON: No previous studies are available for comparison. Obtained at 1824 hours. A single portable AP radiograph of the chest was obtained. The heart is normal in size. The mediastinal silhouette is normal. The lungs are clear. There are no effusions or infiltrates. There is no pleural thickening. The osseous structures are unremarkable. IMPRESSION: No acute process. Report Dictated on --- Final --- Dictating Physician: DO OLIVO ALFRED Signed Date and Time: 08/16/2021 6:37 pm Signed by: DO OLIVO ALFRED Transcribed Date and Time: 08/16/2021 6:38 [facility] Work Phone: Radiology Study observation (narrative) [facility] Work Phone: XR CHEST PORTABLEOrdered By: Benny Olivo on 08-16-2021 [facility] Work Phone: [facility] Note on 04-12-2017 [facility] Note Normal [facility] Patient Summary Documentson 04-10-2017 Patient Summary Documents Normal [facility] Patient Summary Documents Normal [facility] No Panel Information Influenza Types A,B Direct FA ([facility]) [facility] Work Phone: Vital Signs Date Time Vital Sign Value Performing Clinician Facility 12-14-2024 18:41-0400 Body mass index (BMI) [Ratio] 23.63 kg/m2 Alex Landers MD Work Phone: [facility] 12-14-2024 18:41-0400 Body temperature 97.9 [degF] Alex Landers MD Work Phone: [facility] 12-14-2024 18:41-0400 Body weight 70.5 kg Alex Landers MD Work Phone: [facility] 12-14-2024 18:41-0400 Diastolic blood pressure 74 mm[Hg] Alex Landers MD Work Phone: [facility] 12-14-2024 18:41-0400 Heart rate 101 /min Alex Landers MD Work Phone: [facility] 12-14-2024 18:41-0400 Respiratory rate 16 /min Alex Landers MD Work Phone: [facility] 12-14-2024 18:41-0400 SaO2% (BldA) [Mass fraction] 96 % Alex Landers MD Work Phone: [facility] 12-14-2024 18:41-0400 Systolic blood pressure 122 mm[Hg] Alex Landers MD Work Phone: [facility] 12-25-2023 07:31-0400 Body temperature 97.4 [degF] [facility] 12-25-2023 07:31-0400 Diastolic blood pressure 83 mm[Hg] [facility] 12-25-2023 07:31-0400 Heart rate 79 /min [facility] 12-25-2023 07:31-0400 Respiratory rate 16 /min [facility] 12-25-2023 07:31-0400 SaO2% (BldA) [Mass fraction] 99 % [facility] 12-25-2023 07:31-0400 Systolic blood pressure 116 mm[Hg] [facility] 12-25-2023 03:45-0400 Body height 172.72 cm [facility] 12-25-2023 03:45-0400 Body mass index (BMI) [Ratio] 21.2 kg/m2 [facility] 12-25-2023 03:45-0400 Body weight 63.5 kg [facility] 11-19-2023 17:30-0500 Body temperature 97.81 [degF] Krislyn Aberegg PA Work Phone: [facility] 11-19-2023 17:30-0500 Body weight 71.22 kg Krislyn Aberegg PA Work Phone: [facility] 11-19-2023 17:30-0500 Diastolic blood pressure 88 mm[Hg] Krislyn Aberegg PA Work Phone: [facility] 11-19-2023 17:30-0500 Heart rate 111 /min Krislyn Aberegg PA Work Phone: [facility] 11-19-2023 17:30-0500 Respiratory rate 18 /min Krislyn Aberegg PA Work Phone: [facility] 11-19-2023 17:30-0500 SaO2% (BldA) [Mass fraction] 100 % Krislyn Aberegg PA Work Phone: [facility] 11-19-2023 17:30-0500 Systolic blood pressure 132 mm[Hg] Krislyn Aberegg PA Work Phone: [facility] 06-05-2023 18:03-0400 Body height 172.72 cm [facility] 06-05-2023 18:03-0400 Body mass index (BMI) [Ratio] 22.4 kg/m2 [facility] 06-05-2023 18:03-0400 Body temperature 97.1 [degF] [facility] 06-05-2023 18:03-0400 Body weight 66.85 kg [facility] 06-05-2023 18:03-0400 Diastolic blood pressure 115 mm[Hg] [facility] 06-05-2023 18:03-0400 Heart rate 96 /min [facility] 06-05-2023 18:03-0400 Respiratory rate 18 /min [facility] 06-05-2023 18:03-0400 SaO2% (BldA) [Mass fraction] 99 % [facility] 06-05-2023 18:03-0400 Systolic blood pressure 141 mm[Hg] [facility] 02-28-2023 19:52-0400 Body height 172.72 cm [facility] 02-28-2023 19:52-0400 Body mass index (BMI) [Ratio] 21.6 kg/m2 [facility] 02-28-2023 19:52-0400 Body temperature 98 [degF] [facility] 02-28-2023 19:52-0400 Body weight 64.45 kg [facility] 02-28-2023 19:52-0400 Diastolic blood pressure 94 mm[Hg] [facility] 02-28-2023 19:52-0400 Heart rate 92 /min [facility] 02-28-2023 19:52-0400 Respiratory rate 16 /min [facility] 02-28-2023 19:52-0400 SaO2% (BldA) [Mass fraction] 98 % [facility] 02-28-2023 19:52-0400 Systolic blood pressure 128 mm[Hg] [facility] 02-03-2023 06:40-0400 Diastolic blood pressure 77 mm[Hg] [facility] 02-03-2023 06:40-0400 Heart rate 62 /min [facility] 02-03-2023 06:40-0400 Respiratory rate 15 /min [facility] 02-03-2023 06:40-0400 SaO2% (BldA) [Mass fraction] 97 % [facility] 02-03-2023 06:40-0400 Systolic blood pressure 108 mm[Hg] [facility] 02-03-2023 06:11-0400 Body height 172.72 cm [facility] 02-03-2023 06:11-0400 Body temperature 99.4 [degF] [facility] 01-13-2023 06:11-0400 Body height 172.72 cm [facility] 01-13-2023 06:11-0400 Body mass index (BMI) [Ratio] 21.9 kg/m2 [facility] 01-13-2023 06:11-0400 Body temperature 98.5 [degF] [facility] 01-13-2023 06:11-0400 Body weight 65.5 kg [facility] 01-13-2023 06:11-0400 Diastolic blood pressure 74 mm[Hg] [facility] 01-13-2023 06:11-0400 Heart rate 74 /min [facility] 01-13-2023 06:11-0400 Respiratory rate 15 /min [facility] 01-13-2023 06:11-0400 SaO2% (BldA) [Mass fraction] 98 % [facility] 01-13-2023 06:11-0400 Systolic blood pressure 132 mm[Hg] [facility] 01-02-2023 21:09-0400 Body temperature 98.4 [degF] [facility] 01-02-2023 21:09-0400 Diastolic blood pressure 94 mm[Hg] [facility] 01-02-2023 21:09-0400 Heart rate 87 /min [facility] 01-02-2023 21:09-0400 Respiratory rate 18 /min [facility] 01-02-2023 21:09-0400 Systolic blood pressure 139 mm[Hg] [facility] 01-02-2023 21:05-0400 Body height 172.72 cm [facility] 01-02-2023 21:05-0400 Body mass index (BMI) [Ratio] 21.4 kg/m2 [facility] 01-02-2023 21:05-0400 Body weight 63.95 kg [facility] 01-02-2023 06:36-0400 Body height 172.72 cm [facility] 01-02-2023 06:36-0400 Body mass index (BMI) [Ratio] 21.7 kg/m2 [facility] 01-02-2023 06:36-0400 Body temperature 98.2 [degF] [facility] 01-02-2023 06:36-0400 Body weight 64.8 kg [facility] 01-02-2023 06:36-0400 Diastolic blood pressure 76 mm[Hg] [facility] 01-02-2023 06:36-0400 Heart rate 76 /min [facility] 01-02-2023 06:36-0400 Respiratory rate 17 /min [facility] 01-02-2023 06:36-0400 SaO2% (BldA) [Mass fraction] 98 % [facility] 01-02-2023 06:36-0400 Systolic blood pressure 141 mm[Hg] [facility] 12-31-2022 09:35-0400 Respiratory rate 16 /min [facility] 12-31-2022 08:55-0400 Body mass index (BMI) [Ratio] 20.3 kg/m2 [facility] 12-31-2022 08:55-0400 Body temperature 98 [degF] [facility] 12-31-2022 08:55-0400 Body weight 60.78 kg [facility] 12-31-2022 08:55-0400 Diastolic blood pressure 70 mm[Hg] [facility] 12-31-2022 08:55-0400 Heart rate 79 /min [facility] 12-31-2022 08:55-0400 SaO2% (BldA) [Mass fraction] 99 % [facility] 12-31-2022 08:55-0400 Systolic blood pressure 112 mm[Hg] [facility] 12-01-2022 21:38-0500 Diastolic blood pressure 63 mm[Hg] [facility] 12-01-2022 21:38-0500 Heart rate 64 /min [facility] 12-01-2022 21:38-0500 Systolic blood pressure 127 mm[Hg] [facility] 12-01-2022 20:44-0500 Body height 172.72 cm [facility] 12-01-2022 20:44-0500 Body mass index (BMI) [Ratio] 21.9 kg/m2 [facility] 12-01-2022 20:44-0500 Body temperature 99.3 [degF] [facility] 12-01-2022 20:44-0500 Body weight 65.4 kg [facility] 12-01-2022 20:44-0500 Respiratory rate 18 /min [facility] 12-01-2022 20:44-0500 SaO2% (BldA) [Mass fraction] 95 % [facility] 10-10-2022 22:52-0500 Diastolic blood pressure 90 mm[Hg] [facility] 10-10-2022 22:52-0500 Heart rate 98 /min [facility] 10-10-2022 22:52-0500 Respiratory rate 15 /min [facility] 10-10-2022 22:52-0500 SaO2% (BldA) [Mass fraction] 99 % [facility] 10-10-2022 22:52-0500 Systolic blood pressure 136 mm[Hg] [facility] 10-10-2022 21:07-0500 Body mass index (BMI) [Ratio] 21.2 kg/m2 [facility] 10-10-2022 21:07-0500 Body temperature 97 [degF] [facility] 10-10-2022 21:07-0500 Body weight 63.5 kg [facility] 10-02-2022 19:30-0500 Diastolic Blood Pressure Non-Invasive [address] MCKAYLA CARSON DO [facility] 10-02-2022 19:30-0500 Heart rate 112 /min DR MCKAYLA CARSON DO [facility] 10-02-2022 19:30-0500 Respiratory rate 18 /min DR MCKAYLA CARSON DO [facility] 10-02-2022 19:30-0500 Systolic Blood Pressure Non-Invasive [address] MCKAYLA CARSON DO [facility] 09-09-2022 13:19-0500 Body height 172.72 cm [facility] Work Phone: 09-09-2022 13:19-0500 Body mass index (BMI) [Ratio] 19 kg/m2 [facility] 09-09-2022 13:19-0500 Body temperature 97.6 [degF] [facility] 09-09-2022 13:19-0500 Body weight 56.69 kg [facility] 09-09-2022 13:19-0500 Diastolic blood pressure 88 mm[Hg] [facility] 09-09-2022 13:19-0500 Heart rate 98 /min [facility] 09-09-2022 13:19-0500 Respiratory rate 18 /min [facility] 09-09-2022 13:19-0500 SaO2% (BldA) [Mass fraction] 99 % [facility] 09-09-2022 13:19-0500 Systolic blood pressure 113 mm[Hg] [facility] 09-03-2022 17:27-0500 Respiratory rate 22 /min [facility] 09-03-2022 17:00-0500 Diastolic blood pressure 88 mm[Hg] [facility] 09-03-2022 17:00-0500 Systolic blood pressure 140 mm[Hg] [facility] 09-03-2022 12:40-0500 Body height 172.72 cm [facility] Work Phone: 09-03-2022 12:40-0500 Body mass index (BMI) [Ratio] 20.5 kg/m2 [facility] 09-03-2022 12:40-0500 Body temperature 100 [degF] [facility] 09-03-2022 12:40-0500 Body weight 61.23 kg [facility] 09-03-2022 12:40-0500 Heart rate 117 /min [facility] 09-03-2022 12:40-0500 SaO2% (BldA) [Mass fraction] 100 % [facility] 08-20-2022 11:21-0500 Body height 172.72 cm [facility] Work Phone: 08-20-2022 11:21-0500 Body mass index (BMI) [Ratio] 19.8 kg/m2 [facility] 08-20-2022 11:21-0500 Body temperature 96.5 [degF] [facility] 08-20-2022 11:21-0500 Body weight 58.96 kg [facility] 08-20-2022 11:21-0500 Diastolic blood pressure 92 mm[Hg] [facility] 08-20-2022 11:21-0500 Heart rate 102 /min [facility] 08-20-2022 11:21-0500 Respiratory rate 18 /min [facility] 08-20-2022 11:21-0500 SaO2% (BldA) [Mass fraction] 99 % [facility] 08-20-2022 11:21-0500 Systolic blood pressure 130 mm[Hg] [facility] 07-30-2022 14:56-0400 Body mass index (BMI) [Ratio] 20.7 kg/m2 [facility] Work Phone: 07-30-2022 14:56-0400 Body temperature 98.2 [degF] [facility] Work Phone: 07-30-2022 14:56-0400 Body weight 61.7 kg [facility] Work Phone: 07-30-2022 14:56-0400 Diastolic blood pressure 82 mm[Hg] [facility] Work Phone: 07-30-2022 14:56-0400 Heart rate 98 /min [facility] Work Phone: 07-30-2022 14:56-0400 Respiratory rate 16 /min [facility] Work Phone: 07-30-2022 14:56-0400 SaO2% (BldA) [Mass fraction] 100 % [facility] Work Phone: 07-30-2022 14:56-0400 Systolic blood pressure 113 mm[Hg] [facility] Work Phone: 07-30-2022 03:00-0400 Heart rate 77 /min [facility] Work Phone: 07-30-2022 03:00-0400 Respiratory rate 15 /min [facility] Work Phone: 07-30-2022 03:00-0400 SaO2% (BldA) [Mass fraction] 99 % [facility] Work Phone: 07-30-2022 01:10-0400 Diastolic blood pressure 79 mm[Hg] [facility] Work Phone: 07-30-2022 01:10-0400 Systolic blood pressure 129 mm[Hg] [facility] Work Phone: 07-29-2022 21:11-0400 Body height 172.72 cm [facility] Work Phone: 07-29-2022 21:11-0400 Body mass index (BMI) [Ratio] 19.8 kg/m2 [facility] Work Phone: 07-29-2022 21:11-0400 Body temperature 97.6 [degF] [facility] Work Phone: 07-29-2022 21:11-0400 Body weight 58.96 kg [facility] Work Phone: 06-17-2022 20:24-0400 Body height 172.72 cm [facility] Work Phone: 06-17-2022 20:24-0400 Body mass index (BMI) [Ratio] 20.5 kg/m2 [facility] Work Phone: 06-17-2022 20:24-0400 Body temperature 98.4 [degF] [facility] Work Phone: 06-17-2022 20:24-0400 Body weight 61.23 kg [facility] Work Phone: 06-17-2022 20:24-0400 Diastolic blood pressure 73 mm[Hg] [facility] Work Phone: 06-17-2022 20:24-0400 Heart rate 95 /min [facility] Work Phone: 06-17-2022 20:24-0400 Respiratory rate 16 /min [facility] Work Phone: 06-17-2022 20:24-0400 SaO2% (BldA) [Mass fraction] 92 % [facility] Work Phone: 06-17-2022 20:24-0400 Systolic blood pressure 129 mm[Hg] [facility] Work Phone: 05-02-2022 02:30-0400 Body height 172.7 cm Luis M Figueredo MD Work Phone: [facility] 05-02-2022 02:30-0400 Body mass index (BMI) [Ratio] 22.05 kg/m2 Luis M Figueredo MD Work Phone: [facility] 05-02-2022 02:30-0400 Body temperature 98.29 [degF] Luis M Figueredo MD Work Phone: [facility] 05-02-2022 02:30-0400 Body weight 65.77 kg Luis M Figueredo MD Work Phone: [facility] 05-02-2022 02:30-0400 Diastolic blood pressure 82 mm[Hg] Luis M Figueredo MD Work Phone: [facility] 05-02-2022 02:30-0400 Heart rate 114 /min Luis M Figueredo MD Work Phone: [facility] 05-02-2022 02:30-0400 Respiratory rate 16 /min Luis M Figueredo MD Work Phone: [facility] 05-02-2022 02:30-0400 SaO2% (BldA) [Mass fraction] 97 % Luis M Figueredo MD Work Phone: [facility] 05-02-2022 02:30-0400 Systolic blood pressure 123 mm[Hg] Luis M Figueredo MD Work Phone: [facility] 03-28-2022 17:11-0400 Diastolic blood pressure 79 mm[Hg] Bassem Elena MD Work Phone: [facility] 03-28-2022 17:11-0400 Heart rate 80 /min Bassem Elena MD Work Phone: [facility] 03-28-2022 17:11-0400 Respiratory rate 14 /min Bassem Elena MD Work Phone: [facility] 03-28-2022 17:11-0400 SaO2% (BldA) [Mass fraction] 100 % Bassem Elena MD Work Phone: [facility] 03-28-2022 17:11-0400 Systolic blood pressure 132 mm[Hg] Bassem Elena MD Work Phone: [facility] 03-28-2022 14:05-0400 Body height 172.7 cm Bassem Elena MD Work Phone: [facility] 03-28-2022 14:05-0400 Body mass index (BMI) [Ratio] 20.53 kg/m2 Bassem Elena MD Work Phone: [facility] 03-28-2022 14:05-0400 Body temperature 98.4 [degF] Bassem Elena MD Work Phone: [facility] 03-28-2022 14:05-0400 Body weight 61.24 kg Bassem Elena MD Work Phone: [facility] 03-27-2022 15:10-0400 Body height 172.7 cm Kevin Gill PA-C Work Phone: [facility] 03-27-2022 15:10-0400 Body temperature 98.6 [degF] Kevin Gill PA-C Work Phone: [facility] 03-27-2022 15:10-0400 Body weight 63.96 kg Kevin Gill PA-C Work Phone: [facility] 03-27-2022 15:10-0400 Diastolic blood pressure 88 mm[Hg] Kevin Gill PA-C Work Phone: [facility] 03-27-2022 15:10-0400 Heart rate 106 /min Kevin Gill PA-C Work Phone: [facility] 03-27-2022 15:10-0400 Respiratory rate 16 /min Kevin Gill PA-C Work Phone: [facility] 03-27-2022 15:10-0400 SaO2% (BldA) [Mass fraction] 96 % Kevin Gill PA-C Work Phone: [facility] 03-27-2022 15:10-0400 Systolic blood pressure 110 mm[Hg] Kevin Gill PA-C Work Phone: [facility] 03-23-2022 19:39-0400 Body height 172.7 cm Florecita Caruso MD Work Phone: [facility] 03-23-2022 19:39-0400 Body mass index (BMI) [Ratio] 20.53 kg/m2 Florecita Caruso MD Work Phone: [facility] 03-23-2022 19:39-0400 Body temperature 98.8 [degF] Florecita Caruso MD Work Phone: [facility] 03-23-2022 19:39-0400 Body weight 61.24 kg Florecita Caruso MD Work Phone: [facility] 03-23-2022 19:39-0400 Diastolic blood pressure 79 mm[Hg] Florecita Caruso MD Work Phone: [facility] 03-23-2022 19:39-0400 Heart rate 94 /min Florecita Caruso MD Work Phone: [facility] 03-23-2022 19:39-0400 Respiratory rate 18 /min Florecita Caruso MD Work Phone: [facility] 03-23-2022 19:39-0400 SaO2% (BldA) [Mass fraction] 99 % Florecita Caruso MD Work Phone: [facility] 03-23-2022 19:39-0400 Systolic blood pressure 123 mm[Hg] Florecita Caruso MD Work Phone: [facility] 03-17-2022 19:10-0400 Body temperature 98.2 [degF] Wally Burleson MD Work Phone: [facility] 03-17-2022 19:10-0400 Diastolic blood pressure 82 mm[Hg] Wally Burleson MD Work Phone: [facility] 03-17-2022 19:10-0400 Heart rate 96 /min Wally Burleson MD Work Phone: [facility] 03-17-2022 19:10-0400 Respiratory rate 18 /min Wally Burleson MD Work Phone: [facility] 03-17-2022 19:10-0400 SaO2% (BldA) [Mass fraction] 99 % Wally Burleson MD Work Phone: [facility] 03-17-2022 19:10-0400 Systolic blood pressure 131 mm[Hg] Wally Burleson MD Work Phone: [facility] 02-16-2022 20:02-0400 Body temperature 97.9 [degF] Lynn Brenda DO Work Phone: [facility] 02-16-2022 20:02-0400 Diastolic blood pressure 88 mm[Hg] Lynn Brenda DO Work Phone: [facility] 02-16-2022 20:02-0400 Heart rate 98 /min Lynn Brenda DO Work Phone: [facility] 02-16-2022 20:02-0400 Respiratory rate 18 /min Lynn Brenda DO Work Phone: [facility] 02-16-2022 20:02-0400 SaO2% (BldA) [Mass fraction] 97 % Lynn Brenda DO Work Phone: [facility] 02-16-2022 20:02-0400 Systolic blood pressure 122 mm[Hg] Lynn Gutierrez DO Work Phone: [facility] 12-19-2021 09:29-0400 Body temperature 98.78 [degF] JENNIFER VALLES MD [facility] 12-19-2021 09:29-0400 Body weight 65.8 kg JENNIFER VALLES MD [facility] 12-19-2021 09:29-0400 Diastolic blood pressure 75 mm[Hg] JENNIFER VALLES MD [facility] 12-19-2021 09:29-0400 Heart rate 97 /min JENNIFER VALLES MD [facility] 12-19-2021 09:29-0400 Respiratory rate 16 /min JENNIFER VALLES MD [facility] 12-19-2021 09:29-0400 Systolic blood pressure 142 mm[Hg] JENNIFER VALLES MD [facility] 12-16-2021 22:42-0400 Body height 172.7 cm Wally Burleson MD Work Phone: [facility] 12-16-2021 22:42-0400 Body mass index (BMI) [Ratio] 21.13 kg/m2 Wally Burleson MD Work Phone: [facility] 12-16-2021 22:42-0400 Body temperature 98.1 [degF] Wally Burleson MD Work Phone: [facility] 12-16-2021 22:42-0400 Body weight 63.05 kg Wally Burleson MD Work Phone: [facility] 12-16-2021 22:42-0400 Diastolic blood pressure 95 mm[Hg] Wally Burleson MD Work Phone: [facility] 12-16-2021 22:42-0400 Heart rate 97 /min Wally Burleson MD Work Phone: [facility] 12-16-2021 22:42-0400 Respiratory rate 18 /min Wally Burleson MD Work Phone: [facility] 12-16-2021 22:42-0400 SaO2% (BldA) [Mass fraction] 98 % Wally Burleson MD Work Phone: [facility] 12-16-2021 22:42-0400 Systolic blood pressure 140 mm[Hg] Wally Burleson MD Work Phone: [facility] 10-04-2021 19:16-0500 Body height 172.7 cm Tereso Kuo MD Work Phone: [facility] 10-04-2021 19:16-0500 Body mass index (BMI) [Ratio] 22.5 kg/m2 Tereso Kuo MD Work Phone: [facility] 10-04-2021 19:16-0500 Body temperature 99.1 [degF] Tereso Kuo MD Work Phone: [facility] 10-04-2021 19:16-0500 Body weight 67.13 kg Tereso Kuo MD Work Phone: [facility] 10-04-2021 19:16-0500 Diastolic blood pressure 86 mm[Hg] Tereso Kuo MD Work Phone: [facility] 10-04-2021 19:16-0500 Heart rate 92 /min Tereso Kuo MD Work Phone: [facility] 10-04-2021 19:16-0500 Respiratory rate 16 /min Tereso Kuo MD Work Phone: [facility] 10-04-2021 19:16-0500 SaO2% (BldA) [Mass fraction] 96 % Tereso Kuo MD Work Phone: [facility] 10-04-2021 19:16-0500 Systolic blood pressure 110 mm[Hg] Tereso Kuo MD Work Phone: [facility] 08-16-2021 19:03-0500 Diastolic blood pressure 84 mm[Hg] Florecita Lombardi MD Work Phone: [facility] 08-16-2021 19:03-0500 Heart rate 84 /min Florecita Lombardi MD Work Phone: [facility] 08-16-2021 19:03-0500 Respiratory rate 18 /min Florecita Lombardi MD Work Phone: [facility] 08-16-2021 19:03-0500 SaO2% (BldA) [Mass fraction] 97 % Florecita Lombardi MD Work Phone: [facility] 08-16-2021 19:03-0500 Systolic blood pressure 127 mm[Hg] Florecita Lombardi MD Work Phone: [facility] 08-16-2021 18:07-0500 Body height 172.7 cm Florecita Lombardi MD Work Phone: [facility] 08-16-2021 18:07-0500 Body mass index (BMI) [Ratio] 20.53 kg/m2 Florecita Lombardi MD Work Phone: [facility] 08-16-2021 18:07-0500 Body temperature 99.7 [degF] Florecita Lombardi MD Work Phone: [facility] 08-16-2021 18:07-0500 Body weight 61.24 kg Florecita Lombardi MD Work Phone: [facility] Encounters Encounter Date Encounter Type Care Provider Facility Start: 12-14-2024 End: 12-14-2024 ambulatory DALTON ART Facility:[facility] Start: 12-14-2024 End: 12-14-2024 Office outpatient visit 15 minutes Alex Landers MD Work Phone: [facility] Comment on above: Post-nasal drainage (Primary Dx) Start: 12-06-2024 End: 12-06-2024 Emergency department patient visit No Primary Care Physician Facility:[facility] Start: 10-13-2024 End: 10-13-2024 Emergency department patient visit Antwan Vilma Facility:[facility] Start: 09-19-2024 End: 09-19-2024 Emergency department patient visit Michel Elena Facility:[facility] Start: 09-11-2024 End: 09-11-2024 Emergency department patient visit Ed Physician Provider Facility:[facility] Start: 08-20-2024 End: 08-20-2024 Emergency department patient visit Alan Begum Facility:[facility] Start: 07-04-2024 End: 07-04-2024 Emergency department patient visit Nolan Brady Facility:[facility] Start: 06-16-2024 End: 06-16-2024 Emergency department patient visit Matt Phylicia Facility:[facility] Start: 12-25-2023 End: 12-25-2023 Emergency department patient visit [facility] Work Phone: Start: 11-19-2023 End: 11-19-2023 Patient encounter procedure Travis KLEIN Work Phone: [facility] Comment on above: Mouth sore (Primary Dx); Bacterial sinusitis Start: 06-05-2023 End: 06-05-2023 Emergency department patient visit [facility] Work Phone: Start: 02-28-2023 End: 02-28-2023 Emergency department patient visit [facility] Start: 02-03-2023 End: 02-03-2023 Emergency department patient visit [facility] Start: 01-13-2023 End: 01-13-2023 Emergency department patient visit [facility] Start: 01-02-2023 End: 01-03-2023 Emergency department patient visit [facility] Start: 01-02-2023 End: 01-02-2023 Emergency department patient visit [facility] Start: 12-31-2022 End: 12-31-2022 Emergency department patient visit [facility] Start: 12-01-2022 End: 12-01-2022 Emergency department patient visit [facility] Start: 10-10-2022 End: 10-10-2022 Emergency department patient visit [facility] Start: 10-02-2022 End: 10-02-2022 Emergency department patient visit DR. MCKAYLA CARSON DO Facility:[facility] Start: 10-02-2022 End: 10-02-2022 Emergency department patient visit DR MCKAYLA CARSON DO [facility] Start: 09-09-2022 End: 09-09-2022 Emergency department patient visit [facility] Start: 09-03-2022 End: 09-03-2022 Emergency department patient visit [facility] Start: 08-20-2022 End: 08-20-2022 Emergency department patient visit [facility] Start: 07-30-2022 End: 07-30-2022 Emergency department patient visit [facility] Start: 07-29-2022 End: 07-30-2022 Emergency department patient visit [facility] Start: 06-30-2022 Telephone encounter Kevin rivero PA-C Work Phone: Urology Comment on above: [employer] Start: 06-17-2022 End: 06-17-2022 Emergency department patient visit [facility] Start: 05-02-2022 End: 05-02-2022 Emergency department patient visit Luis M Figueredo MD Work Phone: [facility] Comment on above: Acute cystitis with hematuria (Primary Dx) Start: 03-30-2022 End: 03-31-[address] NEVAEH FRAGA MD. Facility:[facility] Start: 03-30-2022 End: 03-30-[address] NEVAEH FRAGA MD [facility] Start: 03-30-2022 Telephone encounter Kevin Mo oneerendira PA-C Work Phone: Urology Comment on above: Results Start: 03-28-2022 End: 03-28-2022 Emergency department patient visit Bassem Elena MD Work Phone: [facility] Comment on above: Abnormal laboratory test (Primary Dx); Anxiety state Start: 03-27-2022 End: 03-27-2022 Patient encounter procedure Kevin Shepherdoney PA-C Work Phone: Urology Comment on above: Dysuria (Primary Dx) Start: 03-25-2022 Telephone encounter Kevin thurmanerendira PA-C Work Phone: Urology Comment on above: Received Outside Med ical Records Start: 03-23-2022 End: 03-23-2022 Emergency department patient visit Florecita Caruso MD Work Phone: [facility] Comment on above: Dysuria (Primary Dx) ; Anxiety state Start: 03-17-2022 End: 03-17-2022 Emergency department patient visit Wally Burleson MD Work Phone: [facility] Comment on above: Dysuria (Primary Dx) Start: 02-16-2022 End: 02-16-2022 Emergency department patient visit Lynn Gutierrez Work Phone: [facility] Comment on above: Seasonal allergic rh initis due to pollen (Primary Dx) Start: 02-11-[address] NEVAEH FRAGA MD. Facility:[facility] Start: 02-03-[address] NEVAEH FRAGA MD. Facility:[facility] Start: 12-19-2021 End: 12-19-2021 Emergency department patient visit DR. NEVAEH FRAGA MD. Facility:[facility] Start: 12-19-2021 End: 12-19-2021 Emergency department patient visit JENNIFER VALLES MD [facility] Start: 12-16-2021 End: 12-16-2021 Emergency department patient visit Wally Burleson MD Work Phone: [facility] Comment on above: Anxiety state (Prima ry Dx) Start: 10-04-2021 End: 10-04-2021 Emergency department patient visit Tereso Kuo MD Work Phone: [facility] Comment on above: Acute nonintractable headache, unspecified headache type (Primary Dx) Start: 08-16-2021 End: 08-16-2021 Emergency department patient visit Florecita Lombardi MD Work Phone: [facility] Comment on above: Bronchitis (Primary Dx) Start: 04-10-2017 End: 04-11-2017 Emergency department patient visit REBEL HERNÁNDEZ Facility:[facility] Start: 04-09-2017 End: 04-10-2017 Emergency department patient visit MILE SANCHEZ Facility:[facility] Start: 01-07-2017 End: 01-07-2017 Patient encounter procedure JOSSY MURILLO Facility:[facility] Procedures Date Procedure Procedure Detail Performing Clinician Start: 12-25-2023 CT of abdomen and pelvis without contrast Start: 06-05-2023 Diagnostic radiography of abdomen Start: 07-30-2022 Plain X-ray abdomen Start: 05-02-2022 Urnls dip stick/tablet rgnt auto w/o microscopy Luis M Figueredo MD Work Phone: Start: 03-28-2022 Computed tomography of abdomen and pelvis with contrast Bassem Elena MD Work Phone: Start: 03-28-2022 Urnls dip stick/tablet rgnt auto w/o microscopy Bassem Elena MD Work Phone: Start: 03-28-2022 Comprehensive metabolic panel Bassem Elena MD Work Phone: Start: 03-27-2022 Urnls dip stick/tablet rgnt auto w/o microscopy Kevin Gill PA-C Work Phone: Start: 03-23-2022 Urnls dip stick/tablet rgnt auto w/o microscopy Florecita Caruso MD Work Phone: Start: 03-17-2022 Urnls dip stick/tablet rgnt auto w/o microscopy Wally Burleson MD Work Phone: Start: 08-16-2021 Radiologic exam chest single view Florecita Lombardi MD Work Phone: Start: 01-07-2017 Alveoloplasty each quadrant specify JOSSY MURILLO Start: 01-07-2017 DISCHARGE PATIENT JOSSY MURILLO Start: 01-07-2017 Extraction erupted tooth/exr JOSSY CHIDI Start: 01-07-2017 Impact tooth remov part bony JOSSY MURILLO Start: 11-09-2014 Lipid 1996 panel - Serum or Plasma Travis KLEIN Work Phone: Hernia of abdominal cavity (disorder) JENNIFER VALLES MD Influenza Types A,B Direct FA (JESS) Influenza Types A,B Direct FA (JESS) Laboratory test resu lt abnormal Abnormal laboratory test Bassem Elena MD Work Phone: SARS-CoV-2 & FLU Ant igen (Rapid) SARS-CoV-2 & FLU Ant igen (Rapid) Streptococcus pyogen es antigen assay Streptococcus pyogen es antigen assay Plan of Treatment Date Care Activity Detail Author Start: 05-22-2026 DTaP/Tdap/Td vaccine (2 - Td or Tdap) DTaP/Tdap/Td vaccine (2 - Td or Tdap) [facility] Start: 05-22-2026 Urine microalbumin profile DTa P,Tdap,Td Vaccine (7 - Td or Tdap) [facility] Start: 06-04-2024 Covid-19 Vaccine ( season) Covid-19 Vaccine ( season) [facility] Start: 06-04-2024 Influenza vaccination Influenz a Vaccine (#1) [facility] Start: 12-25-2023 End: 12-25-2023 [facility] Start: 10-04-2023 Depression Assessment Depression Ass essment [facility] Start: 06-05-2023 [facility] Start: 01-02-2023 Emergency department visit low/moder severity EMERGENCY DEPT VISIT SF [facility] Start: 2022 Lipid panel Lipid Screening [facility] Start: 06-04-2022 Influenza vaccination S [facility] Start: 10-04-2021 DEPRESSION ASSESSMENT DEPRESSION ASS ESSMENT [facility] Start: 06-04-2021 Influenza vaccination Flu vaccine (# 1) [facility] Start: 2006 Urine microalbumin profile DTA P,TDAP,TD (1 - Tdap) [facility] Start: 2005 Anxiety Screening Anxiety Screening [facility] Start: 2005 Depression Screening Depression Scre ening [facility] Start: 2005 HEPATITIS C SCREENING HEPATITIS C [facility] Start: 2005 Hepatitis C screening Hepatitis C [facility] Start: 2005 HIV SCREENING HIV SCREENING [facility] Start: 2005 HIV screening HIV Screening [facility] Start: 08-18-2000 Hepatitis B Vaccine (2 of 3 - 3-dose series) Hepatitis B Vaccine (2 of 3 - 3-dose series) [facility] Start: 1999 Adult depression scr eening assessment DEPRESSION SCREENING [facility] Start: 1999 COVID-19 Vaccine (1) COVID-19 Vaccin e (1) [facility] Start: 1992 COVID-19 VACCINE (#1) COVID-19 VACCI NE (#1) [facility] Start: 1992 COVID-19 Vaccine (1) COVID-19 Vaccin e (1) [facility] Start: 01-09-1988 COVID-19 Vaccine (#1) COVID-19 Vacci ne (#1) [facility] Start: 1987 HEPATITIS B (1 of 3 - 3-dose series) HEPATITIS B (1 of 3 - 3-dose series) [facility] Bacteria identified in Urine by Culture URINE CULTURE Microbiology Routine Dysuria 03/27/2022 3:49 PM EDT [facility] Work Phone: End: 03-17-2022 C. Trachomatis / N. Gonorrhoeae, DNA [facility] Work Phone: Comment on above: One Time for 1 Occur rences starting 03/17/2022 until 03/17/2022 End: 03-23-2022 C. Trachomatis / N. Gonorrhoeae, DNA C. Trachomatis / N. Gonorrhoeae, DNA Microbiology Add-On One Time for 1 Occurrences starting 03/23/2022 until 03/23/2022 [facility] Work Phone: Comment on above: One Time for 1 Occur rences starting 03/23/2022 until 03/23/2022 End: 05-02-2022 C. Trachomatis / N. Gonorrhoeae, DNA Probe [facility] Work Phone: Comment on above: One Time for 1 Occur rences starting 05/02/2022 until 05/02/2022 End: 03-28-2022 Culture, Urine [facility] Work Phone: Comment on above: One Time for 1 Occur rences starting 03/28/2022 until 03/28/2022 End: 05-02-2022 Culture, Urine Culture, Urine Microbiology STAT One Time for 1 Occurrences starting 05/02/2022 until 05/02/2022 [facility] Work Phone: Comment on above: One Time for 1 Occur rences starting 05/02/2022 until 05/02/2022 Microscopic urinalysis [facility] Work Phone: Organism count, micr oscopic method [facility] Work Phone: Patient Education [facility] Work Phone: Patient referral [facility] Work Phone: Streptococcus pyogen es Ag [Presence] in Throat by Immunofluorescence [facility] Work Phone: Urinalysis, blood, qualitative [facility] Work Phone: Urine microscopy: ep ithelial cells [facility] Work Phone: White blood cell count [facility] Work Phone: [facility] Immunizations Immunization Date Immunization Notes Care Provider [facility] 07-13-2023 influenza virus vacc ine, unspecified formulation Alex Landers MD Work Phone: [facility] 08-23-2020 influenza virus vacc ine, unspecified formulation JENNIFER VALLES MD [facility] 08-15-2020 influenza virus vacc ine, unspecified formulation JENNIFER VALLES MD [facility] 07-29-2019 influenza virus vacc ine, unspecified formulation JENNIFER VALLES MD [facility] 07-11-2018 influenza virus vacc ine, unspecified formulation JENNIFER VALLES MD [facility] 07-04-2018 influenza virus vacc ine, unspecified formulation JENNIFER VALLES MD [facility] 07-01-2017 influenza virus vacc ine, unspecified formulation JENNIFER VALLES MD [facility] 05-22-2016 tetanus toxoid, redu jerrell diphtheria toxoid, and acellular pertussis vaccine, adsorbed JENNIFER VALLES MD [facility] 07-20-2014 influenza virus vacc ine, unspecified formulation JENNIFER VALLES MD [facility] 07-20-2014 influenza, seasonal, injectable Kevin Gill PA-C Work Phone: [facility] 07-20-2014 pneumococcal polysaccharide vaccine, 23 valent JENNIFER VALLES MD [facility] 07-21-2000 hepatitis B pediatri c vaccine JENNIFER VALLES MD [facility] 07-21-2000 measles/mumps/rubell a virus vaccine JENNIFER VALLES MD [facility] 10-16-1988 measles/mumps/rubell a virus vaccine JENNIFER VALLES MD [facility] Payers Date Payer Category Payer Self-pay [id number] 2023 Unknown [id number] 2016 Medicaid [employer] [facility] [id number] 2016-Present [phone] [address] [place] [address] Medicaid [id number] 2016 Medicaid [id number] 2015 Unknown [id number] 1987 Unknown [id number] 1987 Unknown [id number] 1987 Unknown [id number] 1987 Unknown [id number] 1987 Unknown [id number] 1987 Unknown [id number] Unknown [id number] Unknown [id number] Unknown [id number] Unknown [id number] Unknown [id number] Unknown [id number] Unknown [id number] Unknown [id number] Social History Date Type Detail Facility Start: 10-04-2016 [facility] tobacco smoker [employer] Phone: Start: 10-04-2016 End: 11-19-2023 Tobacco use and exposure User of smokeless tobacco [employer] Phone: Start: 08-16-2021 End: 12-14-2024 Alcohol intake Current drinker of alcohol (finding) [employer] Phone: Start: 10-04-2016 History SDOH Alcohol Comment socially [facility] Work Phone: Start: 1985 Sex Assigned At Not on file [facility] [employer] Work Phone: Start: 02-06-2022 End: 05-02-2022 Exposure to SARS-CoV-2 (event) Not sure [facility] Start: 12-15-2021 End: 11-19-2023 Tobacco smoking status [facility] Ex-smoker [facility] Start: 12-16-2021 End: 05-02-2022 Alcohol intake Ex-drinker (finding) [employer] Phone: Start: 08-15-2018 End: 12-25-2023 Tobacco smoking consumption unknown (finding) [facility] Smokeless tobacc o user within last 30 days [facility] Sex Assigned At [facility] History of tobacco use Chews Tobacco [facility] Work Phone: Start: 08-20-2015 End: 12-14-2024 Cigarettes smoked current (pack per day) - Reported 0.3 [facility] History of tobacco use Snuff User [facility] Start: 07-20-2014 History SDOH Alcohol Comment occasional [facility] Start: 06-17-2015 End: 11-19-2023 Tobacco Comment vapor cigarettes [facility] History of tobacco use Current smoker [facility] Work Phone: Start: 04-15-2020 None [facility] Start: 12-01-2015 Alone [facility] Start: 1985 Sex Assigned At Male [facility] History of tobacco use Cigarette Smoker C [facility] Start: 11-19-2023 End: 12-14-2024 Tobacco use panel [facility] Functional Status Date Assessment Result Facility 10-02-2022 Functional Status Room check performed [facility] 04-23-2015 Are you deaf, or do you have serious difficulty hearing No 04/23/2015 7:35 PM EDT Flores Navarro LPN No [facility] 04-23-2015 Are you blind, or do you have serious difficulty seeing, even when wearing glasses No 04/23/2015 7:35 PM EDT Flores Navarro LPN No [facility] 04-23-2015 Do you have serious difficulty walking or climbing stairs No 04/23/2015 7:35 PM EDT Flores Navarro LPN No [facility] 04-23-2015 Do you have difficul ty dressing or bathing No 04/23/2015 7:35 PM EDT Flores Navarro LPN No [facility] 04-23-2015 Because of a physica l, mental, or emotional condition, do you have difficulty doing errands alone such as visiting a physician's office or shopping No 04/23/2015 7:35 PM EDT Flores Navarro LPN No [facility] Mental Status Date Assessment Result Facility 01-13-2023 Cognitive function Level Of Cons ciousness Awake;Alert;Appropriate;Fol lows [facility] Work Phone: 10-02-2022 Mental Status Orientation Oriented x 4 [facility] 10-02-2022 Mental Status [facility] 07-30-2022 Cognitive function Level Of Cons ciousness Awake;Alert;Appropriate;Fol lows [facility] Work Phone: 06-17-2022 Cognitive function Level Of Cons ciousness Awake;Alert;Appropriate;Fol lows [facility] Work Phone: 04-23-2015 Because of a physica l, mental, or emotional condition, do you have serious difficulty concentrating, remembering, or making decisions Yes 04/23/2015 7:35 PM EDT Flores Navarro LPN Yes [facility] Clinical Notes 08-16-2021 to 12-14-2024 Alex Landers MD - 12/14/2024 7:00 PM Travis Hall PA - 11/19/2023 5:55 PM EST Note Date & Type Note Facility 12-14-2024 Note HNO ID: [id number] Author: ALEX LANDERS MD Service: ? Author Type: Physician Type: Progress Notes Filed: 12/14/2024 19:08 Note Text: [facility] Subjective Gilberto Johnson is a 39 year old male. Patient presents with: Cough: Cough and congestion x 2 weeks Feeling drainage for maybe 2 weeks. He was seen in the ED around 12/06/24 and treated with azithromycin for bronchitis/sinusitis. He had follow up with primary care 2 days later and was prescribed tessalon. He continues to have post nasal drainage. He is using nothing for symptoms currently other than his routine zyrtec. Cough Associated symptoms include headaches (resolved migraine with initial illness) and rhinorrhea. Pertinent negatives include no chest pain, no sore throat, no shortness of breath and no wheezing. Review of Systems Constitutional: Negative for fever. HENT: Positive for congestion, postnasal drip and rhinorrhea. Negative for sinus pressure and sore throat. Respiratory: Positive for cough. Negative for shortness of breath and wheezing. Cardiovascular: Negative for chest pain. Neurological: Positive for headaches (resolved migraine with initial illness). Objective BP 122/74 Pulse 101 Temp 36.6 ?C (97.9 ?F) (Tympanic) Resp 16 Wt 70.5 kg (155 lb 6.8 oz) SpO2 96% BMI 23.63 kg/m? Physical Exam Constitutional: General: He is not in acute distress. Appearance: He is not ill-appearing. HENT: Right Ear: Tympanic membrane normal. Left Ear: Tympanic membrane normal. Nose: Congestion (mild) present. Mouth/Throat: Mouth: Mucous membranes are moist. Comments: Posterior pharynx cobblestone lymphoid tissue Eyes: Extraocular Movements: Extraocular movements intact. Conjunctiva/sclera: Conjunctivae normal. Pupils: Pupils are equal, round, and reactive to light. Cardiovascular: Rate and Rhythm: Normal rate and regular rhythm. Heart sounds: No murmur heard. Pulmonary: Effort: No respiratory distress. Breath sounds: No wheezing, rhonchi or rales. Musculoskeletal: Cervical back: Neck supple. Lymphadenopathy: Cervical: No cervical adenopathy. Neurological: Mental Status: He is alert. Psychiatric: Mood and Affect: Mood normal. Comments: Rinses mouth and gargles at the sink a couple times before transition to exam table ASSESSMENT/PLAN: 1. Post-nasal drainage - ICD9: 473.9, ICD10: R09.82 Appears to have residual drainage from recent illness without evidence for recurrent bacterial sinusitis. He may continue cetirizine and expectant management. Alex Landers MD [place] [facility] 12-14-2024 History of Presen t illness Narrative [facility] Subjective Gilberto Johnson is a 39 year old male. Patient presents with: Cough: Cough and congestion x 2 weeks Feeling drainage for maybe 2 weeks. He was seen in the ED around 12/06/24 and treated with azithromycin for bronchitis/sinusitis. He had follow up with primary care 2 days later and was prescribed tessalon. He continues to have post nasal drainage. He is using nothing for symptoms currently other than his routine zyrtec. Cough Associated symptoms include headaches (resolved migraine with initial illness) and rhinorrhea. Pertinent negatives include no chest pain, no sore throat, no shortness of breath and no wheezing. Review of Systems Constitutional: Negative for fever. HENT: Positive for congestion, postnasal drip and rhinorrhea. Negative for sinus pressure and sore throat. Respiratory: Positive for cough. Negative for shortness of breath and wheezing. Cardiovascular: Negative for chest pain. Neurological: Positive for headaches (resolved migraine with initial illness). Objective BP 122/74 Pulse 101 Temp 36.6 C (97.9 F) (Tympanic) Resp 16 Wt 70.5 kg (155 lb 6.8 oz) SpO2 96% BMI 23.63 kg/m Physical Exam Constitutional: General: He is not in acute distress. Appearance: He is not ill-appearing. HENT: Right Ear: Tympanic membrane normal. Left Ear: Tympanic membrane normal. Nose: Congestion (mild) present. Mouth/Throat: Mouth: Mucous membranes are moist. Comments: Posterior pharynx cobblestone lymphoid tissue Eyes: Extraocular Movements: Extraocular movements intact. Conjunctiva/sclera: Conjunctivae normal. Pupils: Pupils are equal, round, and reactive to light. Cardiovascular: Rate and Rhythm: Normal rate and regular rhythm. Heart sounds: No murmur heard. Pulmonary: Effort: No respiratory distress. Breath sounds: No wheezing, rhonchi or rales. Musculoskeletal: Cervical back: Neck supple. Lymphadenopathy: Cervical: No cervical adenopathy. Neurological: Mental Status: He is alert. Psychiatric: Mood and Affect: Mood normal. Comments: Rinses mouth and gargles at the sink a couple times before transition to exam table ASSESSMENT/PLAN: 1. Post-nasal drainage - ICD9: 473.9, ICD10: R09.82 Appears to have residual drainage from recent illness without evidence for recurrent bacterial sinusitis. He may continue cetirizine and expectant management. Alex Landers MD [place] Procedures documented in this encounter [facility] 11-19-2023 History of Presen t illness Narrative This note was created using [employer]. Subjective Gilberto Johnson is a 38 year old male. HPI 38 year old male presents for mouth sore on inside L cheek. He stated it is swollen for a few days. He has used apple cider vinegar and warm salt water without improvement. He has also had cough and congestion with sinus pain for 2 week.s No fevers. No vomiting or diarrhea. He does chew tobacco and is concerned this is affecting his mouth sores. He states he has no teeth, no dental pain. No difficulty swallowing or breathing. PAST MEDICAL HISTORY Diagnosis Date GERD (gastroesophageal reflux disease) Headache Learning disability Seasonal allergies dust, ragweed Tobacco use disorder PAST SURGICAL HISTORY Procedure Laterality Date HERNIA REPAIR HX Hernia 10 years old ALLERGIES Amoxicillin (Bulk), Imitrex [Sumatriptan], Penicillins, and Sulfamethoxazole-Trimethoprim MEDICATIONS busPIRone (BUSPAR) 15 mg tablet famotidine (PEPCID) 20 mg tablet Take 20 mg by mouth at bedtime as needed. dicyclomine (BENTYL) 20 mg tablet TAKE 1 TABLET BY MOUTH 2-4 TIMES DAILY QUEtiapine (SEROQUEL) 25 mg tablet fluticasone (FLONASE ALLERGY RELIEF) 50 mcg/actuation nasal spray Use 1 [place] in each nostril twice daily. loratadine (CLARITIN) 10 mg tablet Take 1 tablet by mouth once daily. naproxen (NAPROSYN) 500 mg tablet Take 1 tablet by mouth twice daily as needed (pain/inflammation, take with food.). itnjlhadxkKECPQ-gorchk-ahkfnzu ne (BMX 1:1:1) 1:1:1 liqd Mix in equal amounts - 1 T every 2hrs as needed for mouth pain, Swish/swallow or expectorate. (8oz) doxycycline (VIBRA-TABS) 100 mg tablet Take 1 tablet by mouth two times a day for 5 days. benzonatate (TESSALON PERLES) 100 mg capsule Take 2 capsules by mouth every 8 hours as needed. (Patient not taking: Reported on 03/27/2022 ) lansoprazole (PREVACID) 30 mg capsule Take 1 capsule by mouth once daily. (Patient not taking: Reported on 03/27/2022 ) FLUoxetine (PROZAC) 20 mg capsule Take 1 capsule by mouth once daily. (Patient not taking: Reported on 03/27/2022 ) Chlorhexidine Gluconate (PERIDEX) 0.12 % solution Use 15 mL as instructed twice daily. (Patient not taking: Reported on 03/27/2022 ) ondansetron (ZOFRAN, HYDROCHLORIDE,) 4 mg tablet Take 1 tablet by mouth every 8 hours as needed. (Patient not taking: Reported on 03/27/2022 ) esomeprazole magnesium (NEXIUM 24HR) 22.3 mg cpDR Take 1 capsule by mouth once daily. (Patient not taking: Reported on 03/27/2022 ) traZODone (DESYREL) 50 mg tablet Take 1 tablet by mouth daily at bedtime. (Patient not taking: Reported on 03/27/2022 ) sucralfate (CARAFATE) 1 gram tablet Take 1 tablet by mouth before meals and at bedtime. (Patient not taking: Reported on 03/27/2022 ) Varenicline (CHANTIX) 0.5 mg (11)- 1 mg (42) tablet Take 0.5 mg daily x3days, then twice daily for 4 days, then 1mg twice daily for duration. (Patient not taking: Reported on 03/27/2022 ) FAMILY HISTORY Problem Relation Age of Onset Diabetes Paternal Grandmother Diabetes Maternal Grandmother Headache Mother Alcohol/Drug Father cirrhosis Social History Tobacco Use Smoking status: Former Packs/day: 0.30 Years: 9.00 Additional pack years: 0.00 Total pack years: 2.70 Types: Cigarettes Smokeless tobacco: Current Types: Snuff Tobacco comments: vapor cigarettes Vaping Use Vaping Use: Former Substance Use Topics Alcohol use: Yes Comment: occasional Drug use: No Review of Systems Constitutional: Negative for chills and fever. HENT: Positive for congestion, mouth sores and sinus pain. Negative for sore throat. Respiratory: Positive for cough. Negative for shortness of breath. Gastrointestinal: Negative for diarrhea and vomiting. Objective BP 132/88 Pulse 111 Temp 36.6 C (97.8 F) Resp 18 Wt 71.2 kg (157 lb) SpO2 100% BMI 23.87 kg/m Physical Exam Vitals and nursing note reviewed. Constitutional: General: He is not in acute distress. Appearance: Normal appearance. He is not toxic-appearing. HENT: Right Ear: Tympanic membrane and ear canal normal. Left Ear: Tympanic membrane and ear canal normal. Nose: Nose normal. Mouth/Throat: Mouth: Mucous membranes are moist. Oral lesions present. Dentition: No gingival swelling or dental abscesses. Pharynx: Uvula midline. No oropharyngeal exudate, posterior oropharyngeal erythema or uvula swelling. Tonsils: No tonsillar exudate. Comments: Patient has swelling noted over left inner cheek. Some erythema. No ulcer or abscess felt. Tender to touch. Appears like it is from a trauma such as biting his cheek. No tongue or floor of mouth swelling. Eyes: Conjunctiva/sclera: Conjunctivae normal. Cardiovascular: Rate and Rhythm: Normal rate and regular rhythm. Pulmonary: Effort: Pulmonary effort is normal. Breath sounds: Normal breath sounds. Skin: General: Skin is warm and dry. Neurological: Mental Status: He is alert. Assessment and Plan ASSESSMENT/PLAN: 1. Mouth sore - ICD9: 528.9, ICD10: K13.79 (primary diagnosis) - RX for magic mouth wash - Advised follow up with PCP or dentist if symptoms do not improve. He does chew tobacco, does not appear like a malignant lesion , but if persists needs close follow up. He understands. 2. Bacterial sinusitis - ICD9: 473.9, 041.9, ICD10: J32.9, B96.89 - Will begin treatment with Doxycycline - Supportive care with plenty of fluids, rest, and analgesia prn. Diagnosis and treatment plan were discussed and questions were answered to the patient's satisfaction. Pt acknowledged understanding of concepts and follow up plan. Specific signs and symptoms that would indicate the need for higher level of care were discussed in detail warranting prompt ER evaluation. LATOYA Kendrick documented in this encounter [facility] 01-02-2023 Hospital Discharg e instructions Additional Instructions Please continue your antibiotic that was given to you at your last visit and wash the area with soap and water. The remaining redness and swelling will resolve over the next 2 to 3 days and then the scab will form. [facility] Work Phone: 12-01-2022 Discharge summary Note Date/Time December 01, 2022 9:28pm [facility] Medical Records Department [address] [place] [address] Emergency Department Summary 12/01/22 MR#: [id number] Acct: [id number] Name: GILBERTO JOHNSON Rep #:[id number] : 1985 37 From: Michel Elena MD PCP: NEVAEH FRAGA Status:REG ER Location: ED HPI History of Present Illness Chief Complaint: Nausea/Vomiting Detail of Chief Complaint: Persistent nausea with vomiting Informant: patient Onset/Context/Timing Onset: Today Context: Sudden Onset Timing: Intermittent Quality: Nausea has been persistent vomiting is been intermittent. Last emesis 1330 Location: GI Current Severity: Mild Maximum Severity: Moderate Worsened by: None thing Relieved by: Nothing Associated Symptoms Associated Symptoms: Nothing Narrative Narrative: Patient is a 37-year-old male who presents with nausea and vomiting. Last emesis 1330. Patient denies dry mouth or thirst. Patient denies orthostatic symptoms. Patient denies fever or chills. Patient denies ill contacts. Patient states emesis is green in color. He denies black or maroon-colored stool. He does endorse history of GERD. He denies bruising easily. He denies headache, visual, ocular auditory symptoms. Patient denies upper respiratory tract infectious symptoms. Patient denies myalgias or arthralgias. Prior similar symptoms: Yes Recent Illness/Hospitalization: No PFSH PFSH Medical History Anxiety Chronic GERD Pancreatitis Tobacco use Home Medications buspirone 5 mg tablet 10 mg PO TID PRN Anxiety 06/10/17 [History Last Taken Unknown] dicyclomine 10 mg capsule 20 mg PO 4X/DAY PRN PRN Pain 06/10/17 [History Last Taken Unknown] famotidine 40 mg tablet (Pepcid) 40 mg PO QHS 06/10/17 [History Last Taken Unknown] loratadine 10 mg tablet (Allergy Relief (loratadine)) 10 mg PO DAILY 06/10/17 [History Last Taken Unknown] melatonin ER 10 mg-pyridoxine HCl (B6) 10 mg tab, immed-extend release 1 ea PO QHS 06/10/17 [History Last Taken Unknown] quetiapine 25 mg tablet 25 mg PO DAILY 09/25/21 [History Last Taken Unknown] lipase 3,000-protease 9,500-amylase 15,000 unit capsule, delayed rel (Creon) 1 cap PO TID Check with primary doctor 06/29/21 [History Last Taken Unknown] ondansetron 4 mg disintegrating tablet 4 mg PO Q8H PRN nausea and vomiting #10 tabs 08/20/22 [Rx Last Taken Unknown] sucralfate 100 mg/mL oral suspension (Carafate) 10 ml PO TID PRN epigastric pain#200 mL 08/20/22 [Rx Last Taken Unknown] esomeprazole magnesium 20 mg capsule,delayed release (Nexium) 20 mg PO DAILY #30caps 09/03/22 [Rx Last Taken Unknown] promethazine 25 mg tablet 25 mg PO TID PRN nausea and vomiting #10 tabs 09/03/22[Rx Last Taken Unknown] ondansetron 4 mg disintegrating tablet 4 mg PO Q8H PRN PRN Nausea #10 tabs 12/01/22 [Rx Last Taken Unknown] Allergy/AdvReac Type Severity Reaction Status Date / Time Penicillins Allergy Unknown Verified 12/01/22 20:49 sumatriptan [From Imitrex] Allergy Unknown Verified 12/01/22 20:49 sumatriptan succinate Allergy Unknown Verified 12/01/22 20:49 [From Imitrex] amoxicillin [Amoxicillin] AdvReac Nausea/Vom/ Verified 12/01/22 20:49 Diarrhea Surgical History History of herniorrhaphy No significant past surgical history Social History household members: family Smoking Status: Former smoker Smokeless tobacco user: chewing tobacco how long ago did patient quit smoking: Former cigarette tobacco use, now chew tobacco 2-3 wads daily. alcohol intake: never details: Patient states he currently is not drinking any alcoholic beverages substance use type: does not use ROS ROS ED Constitutional Constitutional ED: Denies chills, fever(s), subjective, sweats or weight loss Eyes Eyes: Denies blurry vision, change in vision or diplopia ENT ENT ED: Denies ear pain, rhinorrhea or sore throat Cardiovascular Cardiovascular: Denies chest pain, palpitations or racing heartbeat Respiratory/Chest Respiratory/Chest: Denies cough, dyspnea or dyspnea on exertion Gastrointestinal Gastrointestinal: Reports abdominal pain, nausea and vomiting; Denies constipation or diarrhea Genitourinary Genitourinary ED: Denies dysuria, hematuria or urinary frequency Musculoskeletal Musculoskeletal: Denies arthralgias, back pain, myalgias or neck pain Integumentary Denies Abrasions or rash Neurologic Neurologic: Denies headache(s), paresthesias or weakness Hematologic/Lymphatic Hematologic/Lymphatic: Reports systems reviewed and no addt'l complaints, except as documented EXAM Physical Exam Const Vital Signs: 12/01/22 20:44 Temperature 99.3 F H Temperature Source Oral Pulse Rate 86 Respiratory Rate 18 Blood Pressure 129/89 H Blood Pressure Mean 102 Pulse Ox 95 Oxygen Delivery Method Room Air Positive well nourished and well developed General Appearance ED: well developed and NAD; Negative for cyanotic, diaphoretic or pallor HEENT Reports moist mucous membranes HEENT Narrative: Head is atraumatic normocephalic. Ears normal. Nares patent. Posterior pharynx is normal. Eyes PERRL and EOMs intact bilaterally General Eye ED: Negative for pale conjunctiva or scleral icterus Neck no lymphadenopathy, supple and no JVD Chest Wall inspection of chest normal and palpation of chest normal Resp normal respiratory effort and clear to auscultation bilaterally Cardio regular rate, regular rhythm, S1 normal heart sound and S2 normal heart sound GI normal to inspection, nondistended, normoactive bowel sounds, non-tender, non-distended and no masses; Negative for hepatosplenomegaly Palpation: soft Back/Spine no CVA tenderness Extremity normal to inspection Neuro oriented x3, CN's II-XII intact bilaterally and no sensory deficits noted Sensorium / Orientation: alert Psych mental status grossly normal Skin no rashes or lesions noted, no wounds and skin turgor normal General Skin Exam: elasticity normal; Negative for jaundice or pallor MDM MDM MDM Narrative Medical decision making narrative: Patient clinically does not appear dehydrated. We will treat his nausea and vomiting with Zofran since he has a benign abdomen and vital signs are unremarkable. Laboratory tests are not indicated. Prior records were reviewed. Patient notably presents for dental pain. He also has presented in the past for nausea and vomiting. He does have a remote history of gastritis. As documented in the physical exam portion of the chart there is no evidence of coffee-ground emesis or blood in his emesis. Discharge Plan Triage Chief Complaint: Nausea/Vomiting ED Provider: Michel Elena Dx/Rx/DC Orders Clinical Impression: Nausea & vomiting Prescriptions: New ondansetron [ondansetron] 4 mg tablet,disintegrating 4 mg PO Q8H PRN PRN (Reason: Nausea) Qty: 10 0RF No Action buspirone 5 MG tablet 10 mg PO TID PRN (Reason: Anxiety) dicyclomine 10 MG capsule 20 mg PO 4X/DAY PRN PRN (Reason: Pain) loratadine [Allergy Relief (loratadine)] 10 MG tablet 10 mg PO DAILY melatonin-pyridoxine HCl (B6) 1 EACH tablet, IR and ER, biphasic 1 ea PO QHS famotidine [Pepcid] 40 MG tablet 40 mg PO QHS quetiapine 25 mg tablet 25 mg PO DAILY Creon 3,000-9,500- 15,000 unit Capsule,Delayed Release(Dr/Ec) 1 cap PO TID Rx Instructions: with meals sucralfate [Carafate] 100 mg/mL suspension 10 ml PO TID PRN (Reason: epigastric pain) Qty: 200 0RF ondansetron 4 mg tablet,disintegrating 4 mg PO Q8H PRN (Reason: nausea and vomiting) Qty: 10 0RF esomeprazole magnesium [Nexium] 20 mg capsule,delayed release(DR/EC) 20 mg PO DAILY Qty: 30 0RF promethazine 25 mg tablet 25 mg PO TID PRN (Reason: nausea and vomiting) Qty: 10 0RF Primary Care Provider: NEVAEH FRAGA Referrals: NEVAEH FRAGA [Other] - 3-5 Days if not improving Disposition Disposition: Home, Self Care What to do if you have Problems For any increased pain, shortness of breath, bleeding, nausea or vomiting, chest pain, or any unexpected problems, contact your Primary Care Provider. Call [facility] ([phone]) or report to the closest Emergency Room. Call 911 if necessary. 12/01/222129 <Electronically signed by Michel Elena MD> Cosigner Signature (if applicable): CC: NEVAEH FRAGA ~ Signed [facility] Work Phone: [phone]) 729-990912-30-2022 Hospital Discharge instructions Patient Education 10/02/2022 20:40:33 Self-Care for Sore Throats Self-Care for Sore Throats Sore throats happen for many reasons, such as colds, allergies, and infections caused by viruses orbacteria. In any case, your throat becomes red and sore. Your goal for self-care is to reduce your discomfort while giving your throat a chance to heal. Moisten and soothe your throat Tips include the following: Try a sip of water first thing after waking up. Keep your throat moist by drinking 6 or more glasses of clear liquids every day. Run a cool-air humidifier in your room overnight. Avoid cigarette smoke. Suck on throat lozenges, cough drops, hard candy, ice chips, or frozen fruit- juice bars. Use the sugar-free versions if your diet or medical condition requires them. Gargle to ease irritation Gargling every hour or 2 can ease irritation. Try gargling with 1 of these solutions: 1/4 teaspoon of salt in 1/2 cup of warm water An jweb-rrv-czggxkc anesthetic gargle Use medicine for more relief Mshi-atb-jgdgrwu medicine can reduce sore throat symptoms. Ask your pharmacist if you have questions about which medicine to use: Ease pain with anesthetic sprays. Aspirin or an aspirin substitute also helps. Remember, never giveaspirin to anyone 18 or younger, or if you are already taking blood thinners. For sore throats caused by allergies, try antihistamines to block the allergic reaction. Remember: unless a sore throat is caused by a bacterial infection, antibiotics won t help you. Prevent future sore throats Prevention tips include the following: Stop smoking or reduce contact with secondhand smoke. Smoke irritates the tender throat lining. Limit contact with pets and with allergy-causing substances, such as pollen and mold. When you re around someone with a sore throat or cold, wash your hands often to keep viruses or bacteria from spreading. Don t strain your vocal cords. Contact your healthcare provider if you have: A temperature over 101 F (38.3 C) White spots on the throat Great difficulty swallowing Trouble breathing A skin rash Recent exposure to someone else with strep bacteria Severe hoarseness and swollen glands in the neck or jaw [id number] [employer]. [address] [place] [address]. All rights reserved. This information is not intended as a substitute for professional medical care. Always follow yourhealthcare professional's instructions. Follow Up Care 10/02/2022 19:21:21 With:NEVAEH FRAGA MD Address: [address] [place] [phone] When:2-4 days [facility] 12-30-2022 Emergency department Discharge summary Discharge Instructions Thank you for allowing [facility] to assist you with your healthcare needs. The following is importantdischarge information regarding your hospital visit. Diagnosis from Today's Visit swollen gland in throat What to Do Next Instructions from Your Care Team No qualifying data available. Post Acute Orders No qualifying data available. You Need to Schedule the Following Appointments Follow Up with NEVAEH FRAGA MD When Within 2-4 days Where: [address] [place] [phone] Allergies amoxicillin penicillin (Rash) Medications Please ask your primary doctor or pharmacist before taking any other medication not listed, including over the counter drugs, herbal medications, vitamins and or supplements as they may interact withyour home medications. What How Much When Instructions Last Dose Unchanged acetaminophen (Tylenol 325 mg oral capsule) 650 Milligram by mouth Every 4 hours as needed for Pain, scale 1-3 Unchanged acetaminophen (Tylenol Extra Strength 500 mg oral tablet) 2 tab(s) by mouth Every 4 hours as needed for for fever Unchanged Al hydroxide/ Mg hydroxide/ simethicone (Maalox) 5 Milliliter by mouth Four (4) times a day as needed for for indigestion Unchanged APAP/ ASA/ caffeine (Excedrin Extra Strength oral tab (250/ 250/ 65)) 1 tab(s) by mouth Every 6 hours as needed for for headache Unchanged busPIRone (busPIRone 10 mg oral tablet) 1 tab(s) by mouth Three (3) times a day Unchanged dicyclomine (Bentyl use dicyclomine ) 20 Milligram by mouth Four (4) times a day as needed for abdominal discomfort Unchanged famotidine (Pepcid 20 mg oral tablet) 1 tab(s) by mouth Two (2) times a day Unchanged fluticasone nasal (fluticasone 50 mcg/ inh NASAL spray) 1 spray(s) each nostril Two (2) times a day Unchanged loratadine 10 Milligram by mouth Once a day Unchanged melatonin (Melatonin 10 mg oral capsule) 1 cap by mouth Daily at bedtime Unchanged omeprazole (NF) (omeprazole 40 mg oral delayed release capsule (NF)) 1 cap by mouth Once a day Unchanged pancrelipase (Creon 3000 units oral delayed release capsule) 1 cap by mouth Three (3) times a day Unchanged QUEtiapine (QUEtiapine 25 mg oral tablet) 1 tab(s) by mouth Once a day Unchanged sertraline (sertraline 50 mg oral tablet) 1 tab(s) by mouth Once a day Please take this list to your next doctor s visit. Bring all medications you take, including over the counter medications, herbals and other supplements with you to your doctor s visit. Patients and families are reminded to discard old lists and to update any records with all medication providers or retail pharmacies. Education Materials Self-Care for Sore Throats Sore throats happen for many reasons, such as colds, allergies, and infections caused by viruses orbacteria. In any case, your throat becomes red and sore. Your goal for self-care is to reduce your discomfort while giving your throat a chance to heal. Moisten and soothe your throat Tips include the following: Try a sip of water first thing after waking up. Keep your throat moist by drinking 6 or more glasses of clear liquids every day. Run a cool-air humidifier in your room overnight. Avoid cigarette smoke. Suck on throat lozenges, cough drops, hard candy, ice chips, or frozen fruit- juice bars. Use the sugar-free versions if your diet or medical condition requires them. Gargle to ease irritation Gargling every hour or 2 can ease irritation. Try gargling with 1 of these solutions: 1/4 teaspoon of salt in 1/2 cup of warm water An jesw-tai-oqrgnhx anesthetic gargle Use medicine for more relief Upxh-tid-rzqeipr medicine can reduce sore throat symptoms. Ask your pharmacist if you have questions about which medicine to use: Ease pain with anesthetic sprays. Aspirin or an aspirin substitute also helps. Remember, never giveaspirin to anyone 18 or younger, or if you are already taking blood thinners. For sore throats caused by allergies, try antihistamines to block the allergic reaction. Remember: unless a sore throat is caused by a bacterial infection, antibiotics won t help you. Prevent future sore throats Prevention tips include the following: Stop smoking or reduce contact with secondhand smoke. Smoke irritates the tender throat lining. Limit contact with pets and with allergy-causing substances, such as pollen and mold. When you re around someone with a sore throat or cold, wash your hands often to keep viruses or bacteria from spreading. Don t strain your vocal cords. Contact your healthcare provider if you have: A temperature over 101 F (38.3 C) White spots on the throat Great difficulty swallowing Trouble breathing A skin rash Recent exposure to someone else with strep bacteria Severe hoarseness and swollen glands in the neck or jaw [id number] [employer]. [address] [place] [address]. All rights reserved. This information is not intended as a substitute for professional medical care. Always follow yourhealthcare professional's instructions. Additional Information VACCINATE! IT SAVES LIVES! Members of the community who have not yet received the COVID-19 vaccine and would like to receive it can visit one of [facility] vaccine clinics. There are many vaccine clinic locations within the [facility]. For locations and available times, please visit [email or web address]. It is important to note that some COVID mobile vaccine clinics are held outdoors and may be canceled in rainy orstormy conditions. To learn more about pediatric vaccinations (ages 5-11), we invite you to visit the [facility] webpage. [email or web address] learn more about the COVID-19 vaccine, we invite you to visit the [facility] website for a list of frequently asked questions. [email or web address] [facility] Patient Portal Access Instructions: Stay connected with your healthcare team and access your personal medical information anytime with the [facility] Patient Portal. If you would like a full copy of your medical records please contact the [facility] Medical Records Department Wednesday through Wednesday between 8a.m. and 4:30p.m. Please follow the directions below to access the portal: 1.Access the email account you provided upon registration to the hospital.2.Look for an invitation email from [facility].3.Open the email and access the invitation link: Accept Invitation to [email or web address].Fill in the required lambert to create your account. Sign into [email or web address] with your username and password that you created in the above steps to stay up to date. You can then view a summary of results, a summary of your visits, and the ability to download your summaries to your computer or send the information securely to a physician. Remember that your healthcare information is confidential, so carefully consider who you will allow to register on the [facility] Patient Portal for access to your information. You can also access the [facility] Patient Portal on the [employer]. Simply click on Health Records under [email or web address] and then click on the [facility] logo. HOW TO SAFELY DISPOSE OF PRESCRIPTION MEDICATIONS Please use one of the following methods to safely dispose of your unused medications. 1.Use a drug disposal kit: the drug disposal pouch allows you to safely discard your old and unuseddrugs. Ask your nurse to give you one when you are discharged.2.Visit a local take-back location: Many local pharmacies and police departments have programs that collect old and unwanted prescriptiondrugs. Call your local pharmacy or go to http://[employer]/0R8Gj3b to find one close to you.3.Make use of household items: Use cat litter or old coffee grounds to dispose medications if other options arenot available. Mix your drugs with these household products, seal them in an airtight container andthrow it into the garbage. Call [facility]: [phone] to be sure your drugs can be disposed of in this way. Some medicines may require a different approach.4.Never flush your medications down the toilet. IF YOU HAVE BEEN PRESCRIBED AN OPIOIDS FOR PAIN If you have been prescribed an opioid (such as hydrocodone, oxycodone or morphine), it is critical to understand the possible side effects and risks of opioid pain medications. Even when taken as directed, opioids can have several side effects including: Tolerance, meaning you might need to take more of a medication for the same pain relief. Nausea, vomiting and/or constipation. Sleepiness, dizziness, dry mouth, confusion, depression or itching. Physical dependence, meaning you have withdrawal symptoms when a medication is stopped ? this can develop within a few days. KNOW YOUR RESPONSIBILITIES It is important to know exactly how much and how often to take the opioid pain medications you are prescribed. Never take opioids in higher amounts or more often than prescribed. Do not combine opioids with alcohol or other drugs that cause drowsiness, such as benzodiazepines, also known as benzos,including diazepam and alprazolam, muscle relaxants or sleep aids. Never sell or share prescriptionopioids. This is illegal. Store opioids in a secure place and out of reach of others (including children, family, friends and visitors). The last page(s) of this document has been signed and retained as a CHART COPY Signatures Patient Education Materials Self-Care for Sore Throats Medication Leaflets My discharge plan and instructions have been reviewed and explained to me and I,GILBERTO JOHNSON understand my current condition and have read and understand these discharge instructions. I have received a written copy of the plan/instructions. If I have questions, I am aware that I should contact my doctor. 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 Yoli Jensen LPN * Telephone Encounter - Yoli Jensen LPN - 06/30/2022 11:35 AM EDT Received fax to request records from referrals dated 03/15/22-03/21/2022. Yoli Jensen LPN documented in this [facility] Miscellaneous Notes* Telephone Encounter - Nandini Muñoz LPN - 03/30/2022 3:52 PM EDT Patient notified. Nandini Muñoz LPN * Telephone Encounter - Yoli Jensen LPN - 03/30/2022 1:58 PM EDT Called patient, patient not available. His mother states she will have him call clinic. Message for patient: Per Kevin Gill PA-C no infection in the urine. Yoli Jensen LPN * Telephone Encounter - Yoli Jensen LPN - 03/30/2022 1:55 PM EDT ----- Message from Kevin Gill PA-C sent at 03/30/2022 12:07 PM EDT ----- No infection in the urine JORGE Calderon, LYNDON MONTELONGO documented in this encounterA[facility]06-25-2022 Hospital Discharge instructions* Instructions* Bassem Elena MD - 03/28/2022 You have been seen in the Emergency Department for some trace blood on your urinalysis sample at your urologist appointment and anxiety. Your CAT scan shows no sign of abnormalities in your bladder or your kidneys, not consistent with a kidney stone. Today's urinalysis shows no signs of infection or bloody urine. You have declined third round of testing for gonorrhea and chlamydia. The majority of patients with microscopic blood in the urine do not have cancer, however this is best evaluated byurology. After a visit to the Emergency Department, follow-up is important. You should call the offices of [facility] on Wednesday and ask for an appointment to be seen as soon as they can work you in; at that time they may decide that a cystoscopy or other testing is necessary to furtherevaluate the cause of your bloody urine. Also make sure you follow-up with the counseling center [facility] for your anxiety; we are not making any changes to your antianxiety medications at this time. Return to the ED if you develop fevers, chills, inability to urinate, severe back pain or flank pain, pus coming out of your penis, you feel excessively anxious or nervous or hopeless or helpless or unsafe at home, or if any new signs, symptoms, or concerns arise. * Attachments The following attachments cannot be sent through Care Everywhere. * Anxiety Disorder (Hungarian) * Hematuria (Hungarian) * Cystoscopy: Pre-op (Hungarian) [facility] Work Phone: [phone]) 167-918006-24-2022 History of Present illness Narrative* Kevin Gill PA-C - 03/27/2022 3:25 PM EDT Images from the original note were not included. PATIENT INFO: Gilberto Johnson 36 year old ( ) REFERRING PROVIDER: Nevaeh Fraga PCP: Dalton Art DO March 27, 2022 HPI: Gilberto Johnson 36 year old male is here today for discussion and evaluation of burning at tip of penis after usa a sex toy That his friend gave him, he had not been cleaning it as instructions state. He had trace blood on the UA and will get a Urine culture LUTS: Obstructive - weak stream: no, hesitancy: no, Intermittency: no, Double voiding no post-void dribbling: no incomplete emptying: no Irritative - NTF no Urgency yes Frequency yes Dysuria yes Incontinence no Gross Hematuria no Microscopic Hematuria no Other symptoms: LABS: No results found for: TESTOST No results found for: TESTFREE No results found for: PSA Hematocrit (%) Date Value 05/13/2015 40.7 05/01/2015 42.2 11/09/2014 43.9 MEDICATIONS: busPIRone (BUSPAR) 15 mg tablet dicyclomine (BENTYL) 20 mg tablet TAKE 1 TABLET BY MOUTH 2-4 TIMES DAILY QUEtiapine (SEROQUEL) 25 mg tablet fluticasone (FLONASE ALLERGY RELIEF) 50 mcg/actuation nasal spray Use 1 [place] in each nostril twicedaily. loratadine (CLARITIN) 10 mg tablet Take 1 tablet by mouth once daily. naproxen (NAPROSYN) 500 mg tablet Take 1 tablet by mouth twice daily as needed (pain/inflammation, take with food.). famotidine (PEPCID) 20 mg tablet Take 20 mg by mouth at bedtime as needed. benzonatate (TESSALON PERLES) 100 mg capsule Take 2 capsules by mouth every 8 hours as needed. lansoprazole (PREVACID) 30 mg capsule Take 1 capsule by mouth once daily. FLUoxetine (PROZAC) 20 mg capsule Take 1 capsule by mouth once daily. Chlorhexidine Gluconate (PERIDEX) 0.12 % solution Use 15 mL as instructed twice daily. ondansetron (ZOFRAN, HYDROCHLORIDE,) 4 mg tablet Take 1 tablet by mouth every 8 hours as needed. esomeprazole magnesium (NEXIUM 24HR) 22.3 mg cpDR Take 1 capsule by mouth once daily. traZODone (DESYREL) 50 mg tablet Take 1 tablet by mouth daily at bedtime. sucralfate (CARAFATE) 1 gram tablet Take 1 tablet by mouth before meals and at bedtime. Varenicline (CHANTIX) 0.5 mg (11)- 1 mg (42) tablet Take 0.5 mg daily x3days, then twice daily for 4 days, then 1mg twice daily for duration. PAST MEDICAL HISTORY: PAST MEDICAL HISTORY Diagnosis Date GERD (gastroesophageal reflux disease) Headache Learning disability Seasonal allergies dust, ragweed Tobacco use disorder PAST SURGICAL HISTORY: PAST SURGICAL HISTORY Procedure Laterality Date HERNIA REPAIR HX Hernia 12 years old FAMILY HISTORY: FAMILY HISTORY Problem Relation Age of Onset Diabetes Paternal Grandmother Diabetes Maternal Grandmother Headache Mother Alcohol/Drug Father cirrhosis SOCIAL HISTORY: Social Connections: Not on file REVIEW OF SYSTEMS: GENERAL: No fever, chills, weight loss, or fatigue. ENMT: Negative CARDIOVASCULAR:NO CHEST PAIN, PALPITATIONS, ANKLE EDEMA RESPIRATORY: No chronic cough, wheezing, dyspnea, hemoptysis. GENITOURINARY: SEE HPI MUSCULOSKELETAL:NO CHRONIC BACK PAIN, ARTHRITIS, CHRONIC NECK PAIN SKIN: NO VARICOSE VEINS, RASH, ABNORMAL ITCHING HEME/LYMPH/IMMUNE:Negative for prolonged bleeding, bruising easily or swollen nodes NEUROLOGICAL: NO HEADACHES, NUMBNESS, SEIZURES, STROKE DIABETES: No All other systems reviewed and are negative PHYSICAL EXAMINATION: Blood pressure 110/88, pulse 106, temperature 37 C (98.6 F), temperature source Temporal, resp. rate 16, height 172.7 cm (5' 8), weight 64 kg (141 lb), SpO2 96 %. GENERAL: WNL nutrition, no deformities, healthy appearing NEURO: Awake, alert and oriented x 3 and Normal gait PSYCH: No signs of depression, anxiety, or agitation ENMT (Ear, Nose, Mouth, Throat): No masses, adenopathy, icterus. Thyroid nonpalpable RESP: NL effort, no retractions or purse-lip breathing. CV: No extremity swelling, varices, edema, pallor, erythema GASTROINTESTINAL: Soft, nontender, nondistended, no masses. HERNIAS: None SKIN: No rash, lesions No palpable lymphadenopathy MUSCULOSKELETAL: Extremities normal. No deformities, edema, clubbing or skin discoloration. GENITOURINARY: MALE EXAM: Penis: uncircumcised, circumcised, w/o plaques, lesions, masses, or deformities. No drainage PROBLEM LIST REVIEW: Yes LABS: Results for orders placed or performed in visit on 03/27/22 UA DIP, URINE (POC) Result Value Ref Range GLUCOSE UA (POCT) Negative Negative mg/dL BILIRUBIN UA (POCT) Negative Negative KETONE UA (POCT) Negative Negative mg/dL SPECIFIC GRAVITY UA (POCT) 1.015 1.005 - 1.030 HEMOGLOBIN/BLOOD UA (POCT) Trace-lysed (A) Negative PH UA (POCT) 7.5 4.5 - 8.0 PROTEIN UA (POCT) Negative Negative mg/dL UROBILINOGEN UA (POCT) 0.2 Normal E.U./dL NITRITE UA (POCT) Negative Negative LEUKOCYTES UA (POCT) Negative Negative COLOR UA (POCT) Yellow CLARITY UA (POCT) Clear Urine Culture: Pending PROCEDURES: PVR:0 ml IMAGING: IMPRESSION/PLAN: 1. Dysuria - URINE CULTURE I spent a total of 30 minutes on the date of the service which included preparing to see the patient, face to face patient care, completing clinical documentation, obtaining and/or reviewing separately obtained history, performing a medically appropriate examination, counseling and educating the pat ient/family/caregiver, ordering medications, tests, or procedures, and care coordination. JORGE Calderon MT, PA-C * Yoli Jensen LPN - 03/27/2022 3:12 PM EDT CC Post Void Residual HPI: Gilberto Johnson is a 36 year old male. The patient is here now for an appointment with JORGE Calderon MT, PA-COV. Procedure: Explained procedure to patient and verbalizes understanding. Performed a PVR. Patient urinated and instructed to empty bladder as much as possible just prior to having PVR done using bladder ultrasound scanner. Results of scan: 0 mL The patient tolerated the procedure well. Plan: Appointment with Kevin. documented in this [facility]06-[facility]-2022 Miscellaneous Notes* Telephone Encounter - Yoli Jensen LPN - 03/25/2022 2:35 PM EDT Received outside medical records from [facility]. Patient has appointment Wednesday. Provided to Kevin Gill PA-C to review and to operations to be scanned. Yoli Jensen LPN documented in this encounterA[facility]06-20-2022 Hospital Discharge instructions* Instructions* Florecita Caruso MD - 03/23/2022 Take your anxiety medications when you get home. Call your doctor tomorrow for reevaluation. * Attachments The following attachments cannot be sent through Care Everywhere. * Anxiety Disorder (Hungarian) * Dysuria (Hungarian) documented in this encounterSUM[facility]ithmatica Work Phone: [phone] 784-111805-16-2022 Hospital Discharge instructions* Instructions* Lynn Gutierrez DO - 02/16/2022 You have seasonal allergies, you are given a prescription for Zyrtec and Nasacort. Follow-up with your primary care physician. Return to the emergency department for new or worsening symptoms. * Attachments The following attachments cannot be sent through Care Everywhere. * Allergies: Seasonal (Hungarian) documented in this encounter[facility] Work Phone: [phone]) 212-715203-20-2022 Note. MICRO - Microbiology PROCEDURE: Urine Culture [*1] SOURCE: Urine BODY SITE: COLLECTED DATE/TIME: 12/19/2021 10:19 EDT RECEIVED DATE/TIME: 12/19/2021 14:14 EDT START DATE/TIME: 12/19/2021 14:14 EDT FREE TEXT SOURCE: FINAL REPORTS Final Report [] Verified Date/Time/Personnel: 12/21/2021 07:43 EDT No growth at 48 hours. PRELIMINARY REPORTS Preliminary Report [] Verified Date/Time/Personnel: 12/20/2021 10:47 EDT No growth to date Performing Locations *1: This test was performed at: [facility], [address] [place] [address], [id number] , [facility] ([place])12-19-2021 Hospital Discharge instructions Patient Education 12/19/2021 10:17:36 Urinary Tract Infections in Men Urinary Tract Infections in Men Urinary tract infections (UTIs) are most often caused by bacteria that invade the urinary tract. The bacteria may come from outside the body. Or they may travel from the skin outside of the rectum into the urethra. Pain in or around the urinary tract is a common symptom for most UTIs. But the only way to know for sure if you have a UTI is to have a urinalysis and urine culture. Types of UTIs Cystitis. This is a bladder infection. It is often linked to a blockage from an enlarged prostate. You may have an urgent or frequent need to urinate, and bloody urine. Treatment includes antibioticsand medicine to relax or shrink the prostate. Sometimes you will need surgery. Urethritis. This is an infection of the urethra. You may have a discharge from the urethra or burning when you urinate. You may also have pain in the urethra or penis. It is treated with antibiotics. Prostatitis. This is an inflammation or infection of the prostate. You may have an urgent or frequent need to urinate, fever, or burning when you urinate. Or you may have a tender prostate, or a vague feeling of pressure. Prostatitis is treated with a range of medicines, depending on the cause. Pyelonephritis. This is a kidney infection. If not treated, it can be serious and damage your kidneys. In severe cases you may need to stay in the hospital. You may have a fever and lower back pain. Medicines to treat a UTI Most UTIs are treated with antibiotics. These kill the bacteria. The length of time you need to take them depends on the type of infection. Take antibiotics exactly as directed until all of the medicine is gone. If you don't, the infection may not go away and may become harder to treat. For certaintypes of UTIs, you may be given other medicine to help treat your symptoms. Lifestyle changes to treat and prevent UTIs The lifestyle changes below will help get rid of your current infection. They may also help preventfuture UTIs. Drink plenty of fluids such as water, juice, or other caffeine-free drinks. This helps flush bacteria out of your system. Empty your bladder when you feel the urge to urinate and before going to sleep. Urine that stays inyour bladder promotes infection. Use condoms during sex. These help prevent UTIs caused by sexually transmitted bacteria. Keep follow-up appointments with your healthcare provider. He or she can may do tests to make sure the infection has cleared. If needed, more treatment can be started. Other treatments to prevent UTIs Most UTIs respond to medicine. But sometimes you will need a procedure or surgery. This can treat an enlarged prostate, or remove a kidney stone or other blockage. Surgery may also treat problems caused by scarring or long-term infections. [id number] [employer]. [address] [place] [address], [place] [address]. All rights reserved. This information is not intended as a substitute for professional medical care. Always follow yourhealthcare professional's instructions. Follow Up Care 12/19/2021 09:24:18 With:your urologist Address: When: Unknown [facility] 11-13-2021 Hospital Discharge instructions* Instructions* Florecita Lombardi MD - 08/16/2021 Return if high fever develops or increased shortness of breath * Attachments The following attachments cannot be sent through Care Everywhere. * Bronchitis (Hungarian) documented in this encounterSUMMA Work Phone: Discharge summary Author [facility] January 13, 2023 6:43am Note Date/Time January 13, 2023 6:4 3am [facility] Medical Records Department [address] [place] [address] Emergency Department Summary 01/13/23 MR#: [id number] Acct: [id number] Name: GILBERTO JOHNSON Rep #:[id number] : 1985 37 From: Wally Richards DO PCP: Care Physician,No Primary Status :PRE ER Location: ED HPI History of Present Illness Chief Complaint: Sore Throat Narrative Narrative: 37-year-old male presenting with sore throat. He states is difficult to swallow. He does not have any difficulty talking, breathing. He states has been ongoing for about 6 days. He states he has a primary care physician in [place] but cannot get there because he does not have a ride. He has been here several times for similar symptoms. He was checked for strep and this was negative. Patient was treated with dexamethasone which helped his symptoms. Patient denies any fever, chills, sweats, nausea, vomiting. PFSH PFSH Medical History Anxiety Chronic GERD Pancreatitis Tobacco use Home Medications buspirone 5 mg tablet 10 mg PO TID PRN Anxiety 06/10/17 [History Last Taken Unknown] dicyclomine 10 mg capsule 20 mg PO 4X/DAY PRN PRN Pain 06/10/17 [History Last Taken Unknown] famotidine 40 mg tablet (Pepcid) 40 mg PO QHS 06/10/17 [History Last Taken Unknown] loratadine 10 mg tablet (Allergy Relief (loratadine)) 10 mg PO DAILY 06/10/17 [History Last Taken Unknown] melatonin ER 10 mg-pyridoxine HCl (B6) 10 mg tab, immed-extend release 1 ea PO QHS 06/10/17 [History Last Taken Unknown] quetiapine 25 mg tablet 25 mg PO DAILY 06/28/21 [History Last Taken Unknown] lipase 3,000-protease 9,500-amylase 15,000 unit capsule, delayed rel (Creon) 1 cap PO TID Check with primary doctor 06/29/21 [History Last Taken Unknown] ondansetron 4 mg disintegrating tablet 4 mg PO Q8H PRN nausea and vomiting #10 tabs 08/20/22 [Rx Last Taken Unknown] sucralfate 100 mg/mL oral suspension (Carafate) 10 ml PO TID PRN epigastric pain#200 mL 08/20/22 [Rx Last Taken Unknown] esomeprazole magnesium 20 mg capsule,delayed release (Nexium) 20 mg PO DAILY #30caps 09/03/22 [Rx Last Taken Unknown] promethazine 25 mg tablet 25 mg PO TID PRN nausea and vomiting #10 tabs 09/03/22[Rx Last Taken Unknown] ondansetron 4 mg disintegrating tablet 4 mg PO Q8H PRN PRN Nausea #10 tabs 12/01/22 [Rx Last Taken Unknown] doxycycline monohydrate 100 mg capsule 100 mg PO BID #20 CAPSULES 01/03/23 [Rx Last Taken Unknown] Allergy/AdvReac Type Severity Reaction Status Date / Time Penicillins Allergy Unknown Verified 01/02/23 21:36 sumatriptan [From Imitrex] Allergy Unknown Verified 01/02/23 21:36 sumatriptan succinate Allergy Unknown Verified 01/02/23 21:36 [From Imitrex] amoxicillin [Amoxicillin] AdvReac Nausea/Vom/ Verified 01/02/23 21:36 Diarrhea Surgical History History of herniorrhaphy No significant past surgical history Social History household members: family Smoking Status: Former smoker Smokeless tobacco user: chewing tobacco how long ago did patient quit smoking: Former cigarette tobacco use, now chew tobacco 2-3 wads daily. alcohol intake: never details: Patient states he currently is not drinking any alcoholic beverages substance use type: does not use ROS ROS ED Constitutional Constitutional ED: Denies chills or fever(s) Eyes Eyes: Denies change in vision or diplopia ENT ENT ED: Reports sore throat; Denies rhinorrhea Cardiovascular Cardiovascular: Denies chest pain or palpitations Respiratory/Chest Respiratory/Chest: Denies cough or dyspnea Gastrointestinal Gastrointestinal: Denies abdominal pain or constipation Genitourinary Genitourinary ED: Denies dysuria or hematuria Musculoskeletal Musculoskeletal: Denies arthralgias or back pain Integumentary Denies abscess or Abrasions Neurologic Neurologic: Denies headache(s) EXAM Physical Exam Const Vital Signs: 01/13/23 06:11 01/13/23 06:21 Temperature 98.5 F Temperature Source Temporal Pulse Rate 74 Respiratory Rate 15 Respiratory Effort Normal Blood Pressure 132/74 H Blood Pressure Mean 93 Pulse Ox 98 Oxygen Delivery Method Room Air Positive well nourished General Appearance ED: NAD HEENT Reports moist mucous membranes Face and Sinus: normal facial exam Nose: external nose normal and nares normal Mouth ED: Yes oral and palatal mucosa normal, Yes lips normal, Yes tongue normal, Yes salivary gland normal, Yes moist mucous membranes normal, No dysphonia and No muffled voice Mouth: oral and palatal mucosa normal, lips normal, tongue normal, salivary gland normal, No dysphonia and No muffled voice Throat: posterior oropharynx normal Eyes PERRL Neck no lymphadenopathy and supple Chest Wall inspection of chest normal Resp normal respiratory effort and clear to auscultation bilaterally Cardio regular rate and regular rhythm Neuro oriented x3 and CN's II-XII intact bilaterally Sensorium / Orientation: alert Psych mental status grossly normal Skin no rashes or lesions noted MDM MDM MDM Narrative Medical decision making narrative: 37-year-old male presenting with sore throat. He is convinced that his throat is swollen and that he has swollen tonsils and lymph nodes. His HEENT exam is completely normal. He is not having any trouble talking, swallowing, breathing. There is no posterior pharyngeal erythema or exudates. No sublingual edema or submandibular edema. No lymphadenopathy. His vital signs are stable he is afebrile. He states that he wants something to help with the swelling. He states he received Decadron last time. Amenable to giving this to him again but I did senior vice president & general counsel him that I do not find any objective findings of swelling. I recommend that he follow-up with ENT and gave him a referral. Return precautions discussed. Impression: 1. Sore throat Discharge Plan Triage Chief Complaint: Sore Throat ED Provider: Wally Richards Dx/Rx/DC Orders Instructions: Self-Care for Sore Throats Prescriptions: No Action buspirone 5 MG tablet 10 mg PO TID PRN (Reason: Anxiety) dicyclomine 10 MG capsule 20 mg PO 4X/DAY PRN PRN (Reason: Pain) loratadine [Allergy Relief (loratadine)] 10 MG tablet 10 mg PO DAILY melatonin-pyridoxine HCl (B6) 1 EACH tablet, IR and ER, biphasic 1 ea PO QHS famotidine [Pepcid] 40 MG tablet 40 mg PO QHS quetiapine 25 mg tablet 25 mg PO DAILY Creon 3,000-9,500- 15,000 unit Capsule,Delayed Release(Dr/Ec) 1 cap PO TID Rx Instructions: with meals sucralfate [Carafate] 100 mg/mL suspension 10 ml PO TID PRN (Reason: epigastric pain) Qty: 200 0RF ondansetron 4 mg tablet,disintegrating 4 mg PO Q8H PRN (Reason: nausea and vomiting) Qty: 10 0RF esomeprazole magnesium [Nexium] 20 mg capsule,delayed release(DR/EC) 20 mg PO DAILY Qty: 30 0RF promethazine 25 mg tablet 25 mg PO TID PRN (Reason: nausea and vomiting) Qty: 10 0RF ondansetron [ondansetron] 4 mg tablet,disintegrating 4 mg PO Q8H PRN PRN (Reason: Nausea) Qty: 10 0RF doxycycline monohydrate 100 mg capsule 100 mg PO BID Qty: 20 0RF Primary Care Provider: Care Physician,No Primary Referrals: Alex Hernandez MD [Med Staff - Active Staff] - 3-5 Days Care Physician,No Primary [Primary Care Provider] - Disposition Disposition: Home, Self Care What to do if you have Problems For any increased pain, shortness of breath, bleeding, nausea or vomiting, chestpain, or any unexpected problems, contact your Primary Care Provider. Call [facility] ([phone]) or report to the closest Emergency Room. Call 911 if necessary. 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 Diagnostic Tests Pending * Urine Culture 12/19/21 [facility] Evaluation note* Diagnosis Bronchitis- Primary Bronchitis, not specified as acute or chronic documented in this encounter [facility] Work Phone: Evaluation note* Diagnosis Acute nonintractable headache, unspecified headache type- Primary documented in this encounter [facility] Work Phone: Evaluation note* Diagnosis Anxiety state- Primary Anxiety state, unspecified documented in this encounter [facility] Work Phone: Evaluation note* Diagnosis Seasonal allergic rhinitis due to pollen- Primary documented in this encounter [facility] Work Phone: Evaluation note* Diagnosis Dysuria- Primary documented in this encounter [facility] Work Phone: Evaluation note* Diagnosis Dysuria- Primary Anxiety state Anxiety state, unspecified documented in this encounter [facility] Work Phone: Evaluation note* Diagnosis Dysuria- Primary [facility] Diagnosis Abnormal laboratory test- Primary Other abnormal clinical finding Anxiety state Anxiety state, unspecified documented in this encounter [facility] Work Phone: Evaluation note* Diagnosis Acute cystitis with hematuria- Primary Acute cystitis documented in this encounter [facility] Work Phone: Evaluation noteNo assessment information available [facility] Work Phone: Evaluation note* Diagnosis Mouth sore- Primary Other and unspecified diseases of the oral soft tissues Bacterial sinusitis Unspecified sinusitis (chronic) [facility] Diagnosis Post-nasal drainage- Primary Unspecified sinusitis (chronic) documented in this encounter [facility] course Narrative No data available for this section [facility] Discharge instructions* Attachments The following attachments cannot be sent through Care Everywhere. * Headache (Hungarian) documented in this [facility] Work Phone: Hospital Discharge instructions* Attachments The following attachments cannot be sent through Care Everywhere. * Anxiety Disorder (Hungarian) documented in this [facility] Work Phone: Hospital Discharge instructions* Attachments The following attachments cannot be sent through Care Everywhere. * Dysuria (Hungarian) documented in this [facility] Work Phone: Hospital Discharge instructions No data available for this section [facility] Discharge instructions* Attachments The following attachments cannot be sent through Care Everywhere. * UTI (Urinary Tract Infection): Male (Hungarian) documented in this [facility] Work Phone: Hospital Discharge instructions Additional Instructions This is most likely a virus. Plenty of fluids and rest. Tylenol and Motrin for discomfort. Warm salt water gargling. Chloraseptic spray will help with the discomfort of your throat. You can use Mucinex to help with the congestion. We will do a rapid strep test if that is positive I will call you and call you in a prescription if you do not get a call then that means is negative.[facility] Work Phone: Hospital Discharge instructions Additional Instructions Follow-up with your primary care physician within next 3 to 5 days.[facility] Work Phone: Progress note No data available for this section [facility] Summary Purpose Family History No Family History Records FoundNo Family History Records FoundNo Family History Records FoundNo Family History Records FoundNo Family History Records FoundNo Family History Records Found Advance Directives No Advanced Directives Records Found Advance Directive Response Recorded Date/ Time Living Will No June 17, 2022 8:33pm Power of Business Support Liaison No June 8:33pm Advance Directive Response Recorded Date/ Time Living Will No July 29 11:33pm Power of Business Support Liaison No July 29, 2022 11:33pm Advance Directive Response Recorded Date/ Time Living Will No August 20, 2 022 12:05pm Power of Business Support Liaison No August 20, 2022 12:05pm Advance Directive Response Recorded Date/ Time Living Will No September 03 3:25pm Power of Business Support Liaison No September 03, 2022 3:25pm Advance Directive Response Recorded Date/ Time Living Will No September 09 3:07pm Power of Business Support Liaison No September 09, 2022 3:07pm Advance Directive Response Recorded Date/ Time Living Will No December 01, 2 023 8:51pm Power of Business Support Liaison No December 01, 2022 8:51pm Advance Directive Response Recorded Date/ Time Living Will No January 02, 2023 6:38am Power of Business Support Liaison No January 02 6:38am Advance Directive Response Recorded Date/ Time Living Will No January 02, 2023 9:36pm Power of Business Support Liaison No January 02 9:36pm Advance Directive Response Recorded Date/ Time Living Will No January 13, 2023 6:20am Power of Business Support Liaison No January 13 6:20am Advance Directive Response Recorded Date/ Time Living Will No February 03, 2023 6: 17am Power of Business Support Liaison No February 03, 2023 6:17am Advance Directive Response Recorded Date/ Time Living Will No February 28, 2023 8 :00pm Power of Business Support Liaison No February 28, 2023 8:00pm Advance Directive Response Recorded Date/ Time Living Will No June 05 023 6:46pm Power of Business Support Liaison No June 05, 2023 6:46pm Advance Directive Response Recorded Date/ Time Living Will No December 25, 2023 3:48am Power of Business Support Liaison No December 24 3:48am Reason for Referral Specialty Diagnoses / Procedures Referred By Contgoran t Referred To Contact Family Medicine Diagnoses Acute nonintractable headache, unspecified headache type Tereso Kuo MD [address] [place] [address] [address] Referral ID Status Reason Start Date Expiration Date V isits Requested Visits Authorized [id number] Open Specialty Services Required 10/04/2021 10/04/2022 1 1 [facility] [address] Chief Complaint and Reason for Visit Chief Complaint MIGRAINE HEADACHE Chief Complaint MIGRAINE HEADACHE ABDOMINAL PAIN Chief Complaint MIGRAINE HEADACHE ABDOMINAL PAIN N/V abd pain Chief Complaint MIGRAINE HEADACHE ABDOMINAL PAIN N/V abd pain VOMITING Chief Complaint MIGRAINE HEADACHE ABDOMINAL PAIN N/V abd pain VOMITING COLD SX Chief Complaint abd pain VOMITING COLD SX throat N/V Chief Complaint COLD SX throat N/V FOREHEAD HEAT wound Chief Complaint COLD SX throat N/V FOREHEAD HEAT wound ALLERGIC REACTION Chief Complaint throat N/V FOREHEAD HEAT wound ALLERGIC REACTION sore throat Chief Complaint throat N/V FOREHEAD HEAT wound ALLERGIC REACTION sore throat NAUSEA Chief Complaint N/V FOREHEAD HEAT wound ALLERGIC REACTION sore throat NAUSEA n/v Chief Complaint n/v abd pain Chief Complaint acid reflux Additional Source Comments (unrecognized sect ion and content) No Status Records FoundNo Status Records FoundNo Status Records FoundNo Status Records FoundNo Status Records FoundNo Status Records Found INFORMATION SOURCE (unrecogn ized section and content) DATE CREATED AUTHOR 03/30/2018 [employer] DATE CREATED AUTHOR AUTHOR'S ORGANIZ ATION 10/27/2020 [employer] DATE CREATED AUTHOR AUTHOR'S ORGANIZ ATION 05/05/2022 [facility] [employer] [facility] DATE CREATED AUTHOR AUTHOR'S ORGANIZ ATION 10/16/2022 [employer] ([place]) DATE CREATED AUTHOR AUTHOR'S ORGANIZ ATION 12/17/2024 [facility] DATE CREATED AUTHOR AUTHOR'S ORGANIZ ATION 12/22/2024 [facility] Reason for Visit (unrecogniz ed section and content) Reason Comments Shortness of Breath Reason Comments Headache Pharyngitis Reason Comments Anxiety Reason Comments Pharyngitis Other post nasal drip Reason Comments Dysuria Reason Comments Dysuria Anxiety Reason Comments Received Outside Medical Records Reason Comments Consult Reason Comments Urinary Tract Infection Patient reports pain only while urinating x2 months Reason Comments Results Reason Comments Hematuria 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 Reason Comments Mouth Sores L cheek x2 days Reason Comments Cough Cough and congestion x 2 weeks PRN Active and Recently Administ ered Medications (unrecognized section and content) Medication Order 08/14/2021 08/15/2021 08/16/2021 albuterol sulfate HFA 108 (90 Base) MCG/ACT inhaler 2 puff 2 puff, Inhalation, EVERY 4 HOURS PRN, Wheezing, Starting on 08/16/21 at 1805 1827 (Given - Provid er: Ara Cedillo RN) Scheduled Medication Order 10/02/2021 10/03/2021 10/04/2021 ketorolac (TORADOL) injection 30 mg (COMPLETED) 30 mg, IntraMUSCular, ONCE, On 10/04/21 at 1925, For 1 dose, Do not administer for more than 5 days. 1937 (Given - Provid er: Moon Melchor RN) Scheduled Medication Order 03/15/2022 03/16/2022 03/17/2022 azithromycin (ZITHROMAX) tablet 2,000 mg 2,000 mg, Oral, DAILY, First dose on 03/17/22 at 2044, Until Discontinued, Antimicrobial Indications: STD infection 2043 (Due) ondansetron (ZOFRAN-ODT) disintegrating tablet 4 mg 4 mg, Oral, ONCE, 1 dose, On 03/17/22 at 2044 2044 (Due) Scheduled Medication Order 03/26/2022 03/27/2022 03/28/2022 ketorolac (TORADOL) injection 30 mg (COMPLETED) Ketorolac is contraindicated in patients with advanced renal impairment and in patients at risk of renal failure due to volume depletion. For 65 years of age and older OR weight less than 50 kg, use 15 mg IV every 6 hours; MAX dose: 60 mg/day. Dose greater than 30 mg must be administered via intramuscular route. Do not administer for more than 5 days., 30 mg, IntraVENous, ONCE, 1 dose, On 03/28/22 at 1410, Do not administer for more than 5 days. 1440 (Given - Provid er: Moon Melchor RN) PRN Medication Order 03/26/2022 03/27/2022 03/28/2022 iopamidol (ISOVUE-370) 76 % injection 75 mL (COMPLETED) 75 mL, IntraVENous, IMG ONCE PRN, 1 dose, Starting on 03/28/22 at 1430, Until 03/28/22 at 1521, Other 1521 (Given - Provid er: Zully Hoffman) Scheduled Medication Order 04/30/2022 05/01/2022 05/02/2022 levoFLOXacin (LEVAQUIN) tablet 750 mg (COMPLETED) 750 mg, Oral, ONCE, 1 dose, On 05/02/22 at 0319, Antimicrobial Indications: Urinary Tract Infection, Do not take with dairy products or calcium-fortified juices. Tube feeding (TF) interaction, obtain physician order to manage. Recommend holding TF for 2 hrs before and 2 hrs after dose. Due to decreased absorption do not give by J tube. 0338 (Given - Provid er: Alonso Savage RN) Ordered Prescriptions (unrec ognized section and content) Prescription Sig Dispensed Refills Start Date End Da te cetirizine (ZYRTEC) 10 MG tablet Take 1 tablet by mouth daily 30 tablet 0 02/16/2022 03/18/2022 triamcinolone (NASACORT ALLERGY 24HR) 55 MCG/ACT nasal inhaler 2 sprays by Each Nostril route daily 1 each 3 02/16/2022 Prescription Sig Dispensed Refills Start Date End Da te levoFLOXacin (LEVAQUIN) 750 MG tablet Take 1 tablet by mouth in the morning for 5 days. 5 tablet 0 05/02/2022 05/07/2022 Source Comments (unrecognize d section and content) In the event this informatio n is protected by the Federal Confidentiality of Alcohol and Drug Abuse Patient Records regulations: The Federal rules restrict any use of the information to criminally investigate or prosecute any alcohol or drug abuse patient.[facility] the event this information is protected by the Federal Confidentiality of Alcohol and Drug Abuse Patient Records regulations: The Federal rules restrict any use of the information to criminally investigate or prosecute any alcohol or drug abuse patient.[facility] the event this information is protected by the Federal Confidentiality of Alcohol and Drug Abuse Patient Records regulations: The Federal rules restrict any use of the information to criminally investigate or prosecute any alcohol or drug abuse patient.[facility] the event this information is protected by the Federal Confidentiality of Alcohol and Drug Abuse Patient Records regulations: The Federal rules restrict any use of the information to criminally investigate or prosecute any alcohol or drug abuse patient.[facility] the event this information is protected by the Federal Confidentiality of Alcohol and Drug Abuse Patient Records regulations: The Federal rules restrict any use of the information to criminally investigate or prosecute any alcohol or drug abuse patient.[facility] the event this information is protected by the Federal Confidentiality of Alcohol and Drug Abuse Patient Records regulations: The Federal rules restrict any use of the information to criminally investigate or prosecute any alcohol or drug abuse patient.[facility] Care Teams (unrecognized sec tion and content) Electronic Lab Technician Relationship Specialty Start Date End Date Dalton Art DO [address] [facility] [address] [place], [place] [address] PCP - General Family Practice 10/05/21 Electronic Lab Technician Relationship Specialty Start Date End Date Dalton Art DO [address] [place] [address] [place], [place] [id number] PCP - General Family Practice 10/05/21 Electronic Lab Technician Relationship Specialty Start Date End Date Dalton Art DO [address] [place] [address] [place], [place] [id number] PCP - General Family Practice 10/05/21 Electronic Lab Technician Relationship Specialty Start Date End Date Dalton Art [address] [facility] [address] [place], [place] [id number] PCP - General Family Medicine 10/05/21 Team Status: Active Member Role Status Dates Dr. Gilberto Schroeder MD Family Provider Active NEVAEH FRAGA Primary Care Provider Active Team Status: Inactive Member Role Status Dates No Primary Care Physician Primary Care Provider Active Dr. Wally Richards DO Attending Provider, Emergency Provider Active Team Status: Inactive Member Role Status Dates No Primary Care Physician Primary Care Provider Active Dr. Aaron Pena MD Attending Provider, Emergency Provider Active Team Status: Inactive Member Role Status Dates No Primary Care Physician Primary Care Provider Active Dr. Marco Antonio Cintron MD Attending Provider, Emergency Pro vider Active Team Status: Inactive Member Role Status Dates No Primary Care Physician Primary Care Provider Active Alan Begum MD Attending Provider, Emergency Provid er Active Team Status: Inactive Member Role Status Dates Dr. Michel Elena MD Emergency Provider Active JESSICA HERRING Primary Care Provider Active Team Status: Inactive Member Role Status Dates Dr. Michel Elena MD Attending Provider, Emergency Provi emil Active JESSICA HERRING Primary Care Provider Active Team Status: Inactive Member Role Status Dates JESSICA Primary Care Provider Active Dr. Marco Antonio Cintron MD Emergency Provider Active Team Status: Inactive Member Role Status Dates NEVAEH JESSICA Primary Care Provider Active Dr. Matt Whatley DO Emergency Provider Active Team Status: Active Member Role Status Dates Dr. Gilberto Schroeder MD Family Provider Active No Primary Care Physician Primary Care Provider Active Team Status: Inactive Member Role Status Dates Dr. Nolan Brady DO Emergency Provider Active No Primary Care Physician Primary Care Provider Active Team Status: Inactive Member Role Status Dates JESSICA Primary Care Provider Active Dr. Marco Antonio Cintron MD Attending Provider, Emergency Pro vider Active Team Status: Inactive Member Role Status Dates JESSICA Primary Care Provider Active Dr. Matt Whatley DO Attending Provider, Emergency Pr ovider Active Team Status: Inactive Member Role Status Dates Dr. Nolan Brady DO Attending Provider, Emergency P rovider Active No Primary Care Physician Primary Care Provider Active Team Status: Inactive Member Role Status Dates No Primary Care Physician Primary Care Provider Active Dr. Wally Richards DO Emergency Provider Active Team Status: Inactive Member Role Status Dates No Primary Care Physician Primary Care Provider Active Dr. Wally Richards DO Attending Provid er, Referring Provider, Emergency Provider Active Team Status: Inactive Member Role Status Dates No Primary Care Physician Primary Care Provider Active Dr. Vinay Franz MD Emergency Provider Active Team Status: Inactive Member Role Status Dates No Primary Care Physician Primary Care Provider Active Dr. Vinay Franz MD Attending Provider, Emergency Provider Active Team Status: Inactive Member Role Status Dates No Primary Care Physician Primary Care Provider Active Dr. Varun Early DO Emergency Provider Active Team Status: Inactive Member Role Status Dates No Primary Care Physician Primary Care Provider Active Dr. Varun Early DO Attending Provider, Emergency Pro vider Active Team Status: Inactive Member Role Status Dates No Primary Care Physician Primary Care Provider Active Dr. Pam Bear MD Emergency Provider Active Electronic Lab Technician Relationship Specialty Start Date End Date Dalton Art DO [address] [facility] [place] [address] PCP - General Family Medicine 10/05/21 Electronic Lab Technician Relationship Specialty Start Date End Date Dalton Art DO [address] [facility] [place] [address] PCP - General Family Medicine 10/05/21 Vania Szymanski, SOCK IRONER.TOE LASTER [address] [place] [address] Formerly [facility] 09/10/24 Royer Green, SOCK IRONER.TOE LASTER Josette CHAVEZ [facility] [place] [address] Formerly [facility] 11/14/24 Care Team (unrecognized sect ion and content) Personnel Name: NEVAEH FRAGA MD Address: Address: [address] [place] [address] Care Team Personnel Name: NEVAEH FRAGA MD Member Role: Primary Care Physician Address: Address: [address] [place] [address] Name: Lisa Szymanski RN Position: AO RN Member Role: RN Name: MCKAYLA CARSON DO Position: ED Physician Member Role: Attending Physician Address: Address: [facility] [address] Care Team Related Persons Name: URCONIS, TREVIN Name: URCONIS, TREVIN Name: URCONIS, TREVIN Name: URCONIS, TERVIN Name: URCONIS, TREVIN Name: URCONIS, TREVIN Name: URCONIS, TREVIN Name: URCONIS, TREVIN Name: URCONIS, TREVIN Name: URCONIS, TREVIN Name: URCONIS, TREVIN Name: URCONIS, TREVIN Name: URCONIS, TREVIN Name: URCONIS, TREVIN Name: URCONIS, TREVIN Name: URCONIS, TREVIN Name: URCONIS, TREVIN Name: URCONIS, TREVIN Name: URCONIS, TREVIN Name: URCONIS, TREVIN Name: URCONIS, TREVIN Name: URCONIS, TREVIN Name: URCONIS, TREVIN Name: URCONIS, TREVIN Name: URCONIS, TREVIN Name: URCONIS, TREVIN Name: URCONIS, TREVIN Name: URCONIS, TREVIN Name: URCONIS, TREVIN Name: URCONIS, TREVIN Name: URCONIS, TREVIN Name: URCONIS, TREVIN Name: URCONIS, TREVIN Name: URCONIS, TREVIN Name: URCONIS, TREVIN Name: URCONIS, TREVIN Name: URCONIS, TREVIN Name: URCONIS, TREVIN Name: URCONIS, TREVIN Name: URCONIS, TREVIN Name: URCONIS, TREVIN Name: URCONIS, TREVIN Name: URCONIS, TREVIN Name: URCONIS, TREVIN Name: URCONIS, TREVIN Name: URCONIS, TREVIN Name: URCONIS, TREVIN Name: URCONIS, TREVIN Name: URCONIS, TREVIN Name: URCONIS, TREVIN Name: URCONIS, TREVIN Name: URCONIS, TREVIN Name: URCONIS, TREVIN Name: URCONIS, TREVIN Name: URCONIS, TREVIN Name: URCONIS, TREVIN Name: URCONIS, TREVIN Name: URCONIS, TREVIN Name: URCONIS, TREVIN Name: URCONIS, TREVIN Name: URCONIS, TREVIN Name: URCONIS, TREVIN Name: URCONIS, TREVIN Name: URCONIS, TREVIN Name: URCONIS, TREVIN Name: URCONIS, TREVIN Name: URCONIS, TREVIN Name: URCONIS, TREVIN Name: URCONIS, TREVIN Name: URCONIS, TREVIN Name: URCONIS, TREVIN Name: URCONIS, TREVIN Name: URCONIS, TREVIN Name: URCONIS, TREVIN Name: URCONIS, TREVIN Name: URCONIS, TREVIN Name: URCONIS, TREVIN Name: URCONIS, TREVIN Name: URCONIS, TREVIN Name: URCONIS, TREVIN Name: URCONIS, TREVIN Name: URCONIS, TREVIN Name: URCONIS, TREVIN Goals (unrecognized section and content) Goals may be documented in a n alternate section FOR RECORDS PERTAINING TO PATIENTS WHO ARE OR HAVE BEEN ENROLLED IN A CHEMICAL DEPENDENCY/SUBSTANCEABUSE PROGRAM, SOME INFORMATION MAY BE OMITTED. This clinical summary was aggregated from multiple sources. Caution should be exercised in using it in the provision of clinical care. This summary normalizes information from multiple sources, and as a consequence, information in this document may materially change the coding, format and clinical context of patient data. In addition, data may be omitted in some cases. CLINICAL DECISIONS SHOULD BE BASED ON THE PRIMARY CLINICAL RECORDS. [employer] [facility]. provides no warranty or guarantee of the accuracy or completeness of information in this document.
[2025-03-19 01:41] VITALS: BP 134/81; PULSE 71; RESP 18; TEMP 36.7; O2SAT 100
[2025-03-19] MEDS: Mag Hydrox/Al Hydrox/Simeth 30 ML UDC PO (01:48)
[2025-03-19] MEDS: Lidocaine 2% Viscous15 ML UDC 15 ML PO (01:49)
== END 2025-03-19 01:50 | disposition home or self-care (01) ==
LOC: ED 01:26
PROVIDERS: Emergency Provider Emergency Medicine; Visit Provider Emergency Medicine
DX: R11.2 Nausea with vomiting, unspecified (principal); F17.220 Nicotine dependence, chewing tobacco, uncomplicated; F17.290 Nicotine dependence, other tobacco product, uncomplicated
CPT/HCPCS: 99282

== ENCOUNTER 2025-04-05 01:13 | Emergency (ER) | payer MEDICARE, MEDICAID, SELFPAY ==
[2025-04-05 01:14] VITALS: BP 136/88; PULSE 98; RESP 16; TEMP 37.3; O2SAT 98; BMI 23.4
--- NOTE | 2025-04-05 02:03 | CT_ITS ---
PROCEDURE: BRAIN/HEAD WITHOUT CONTRAST 04/05/2025 REASON FOR EXAM: CLOSE HEAD INJURY TECHNIQUE: BRAIN/HEAD WITHOUT CONTRAST Coronal and Sagittal reconstruction series were provided. One or more dose reduction techniques were used (e.g., Automated exposure control, adjustment of the mA and/or kV according to patient size, use of iterative reconstruction technique. RADIATION DOSE SUMMARY: CTDlvol: 45 mGy DLP: 830 mGycm COMPARISON: No FINDINGS: No abnormal brain densities. No intracranial hemorrhage. No hydrocephalus or midline shift. Small posterior scalp swelling. Unremarkable orbits. No skull fracture. Clear sinuses. CT/Brain/Head without Contrast IMPRESSION: No acute intracranial findings Reading Location: [place] [address]
--- OUTSIDE RECORDS SUMMARY | 2025-04-05 02:21 | XMS RPT_ITS | CCD ---
Author Organization [facility] Care Team Providers Care Door Clamp Operator Name Role Phone MILE SANCHEZ Unavailable Unavailable KUO, ROLAND M Unavailable Unavailable KUO, ROLAND M Unavailable Unavailable REBEL HERNÁNDEZ Unavailable Unavailable KUO, ROLAND M Unavailable Unavailable KUO, ROLAND M Unavailable Unavailable JOSSY MURILLO Referring Unavailable JOSSY MURILLO Attending Unavailable JOSSY MURILLO Admitting Unavailable Unavailable Primary Care Provider Unavailjovi FRAGA MD, DR NEVAEH Galarza Primary Care Physician Dalton Art DO Primary Care Provider DR NEVAEH FRAGA MD Primary Care Physician [phone] Dalton Art DO Primary Care Provider JESSICA LOBO., DR. NEVAEH Galarza Primary Care Unavail alireza FRAGA MD., DR. NEVAEH Galarza Attending Unavail alireza FRAGA MD., DR. NEVAEH Galarza Attending Unavail alireza FRAGA MD., DR. NEVAEH Galarza Primary Care Unavail alireza FRAGA MD., DR. NEVAEH Galarza Primary Care Unavail able JENNIFER VALLES MD Attending Unavail able ALLI KILGORE, DR. MCKAYLA Oseguera Attending Unavailable JESSICA LOBO., DR. NEVAEH Galarza Primary Care Unavail alireza FRAGA MD., DR. NEVAEH Galarza Primary Care Unavail alireza FRAGA MD., DR. NEVAEH Galarza Attending Unavail able Dalton Art DO Primary Care Provider Dalton Art DO Primary Care Provider Stephon SAND MILLER.STARCHER AND TENTER RANGE FEEDER, Vania Unavailable Stone SAND MILLER.STARCHER AND TENTER RANGE FEEDER, Royer Unavailable DALTON ART Primary Care Unavailable Care Physician, No Primary Primary Care Provider Unavailable Abdulaziz LOBO, Dr. Bernard Attending Provider [phone] Dr. Marco Antonio Cintron MD Emergency Provider Vilma Antwan Attending Unavailable Care Physician, No Primary Primary Care Unava ilable Marco Antonio Cintron Attending Unavailable Care Physician, No Primary Primary Care Unava ilable Care Physician, No Primary Primary Care Unava ilable Marco Antonio Cintron Attending Unavailable Nolan Brady Attending Unavailable Care Physician, No Primary Primary Care Unava ilable Provider, Ed Physician Attending Unavailab Care Physician, No Primary Primary Care Unava ilable Matt Whatley Attending Unavailable Care Physician, No Primary Primary Care Unava ilable Alan Begum Attending Unavailable Care Physician, No Primary Primary Care Unava ilable Elena, Michel Attending Unavailable Care Physician, No Primary Primary Care Unava ilable Allergies Allergy Classification Reported Allergen(s) Allergy Type Date of Onset Reaction(s) Facility (20 sources) Amoxicillin; Translations: [AMOXICILLIN] Drug Allergy 10-04-19 17 Nausea/Vom[facility] (20 sources) Penicillins; Translations: [PENICILLINS] Propensity to adverse reactions to drug (disorder) 07-20-20 14 Vomiting [facility] Repository (20 sources) SUMAtriptan; Translations: [SUMATRIPTAN] Drug Allergy 05-01-20 15 Other: See Comments [facility] Work Phone: (3 sources) Penicillin; Translations: [penicillins] Drug Allergy [facility] (7 sources) Amoxicillin; Translations: [AMOXICILLIN (BULK)] Drug Allergy 11-23-19 15 Vomiting [facility] (15 sources) SUMAtriptan; Translations: [sumatriptan succinate] Drug Allergy 06-24-20 21 Unknown [facility] (3 sources) Sulfamethoxazole / Trimethoprim; Translations: [SULFAMETHOXAZOLE-T RIMETHOPRIM] Drug Allergy 11-19-19 24 Swelling [facility] (1 source) SUMAtriptan Drug Allergy 12-07-19 25 [facility] Repository Medications Current Medications Medication [...] for headache Start Date: 06/08/17 Status: Ordered [id number] 200 actuat albuterol 0.09 mg/actuat metered dose [...] 0 Refill(s) Start Date: 12/12/16 Status: Ordered azithromycin 250 mg oral tablet (4 sources) Macrolide Antimicrobial Start: 12-06-2024 Azithromycin (Zithromax Z-Phillip) 250 mg tablet Active 0 PO .COMPLEX December 06, 2024 1:00am For 250 mg dose pack: take 500 mg today (day 1), then 250 mg for 4 days (days 2-5) Start: 08-04-2023 End: 12-25-2023 Azithromycin 250 mg tablet D iscontinued 250 mg PO daily August 04, 2023 12:00am December 25, 2023 3:44am 2 tablets today, then 1 tablet daily on days 2 through 11 Start: 03-17-2022 azithromycin ( ZITHROMAX) tablet 2,000 mg busPIRone hydrochloride 15 m g oral tablet (20 sources) Start: 03-23-2022 busPIRone (BUS PAR) 15 mg tablet 03/23/2022 Active Start: 06-27-2017 busPIRone 10 m g oral tablet Dose : 10 mg = 1 tab(s), Oral, TID, # 270 tab(s), 0 Refill(s) Start Date: 06/27/17 Status: Ordered Start: 06-10-2017 take 2 tablets by mo ut three times daily as needed for anxiety Buspirone 5 MG tablet Active 10 mg PO THREE TIMES A DAY as needed for Anxiety June 10, 2017 12:00am Start: 06-10-2017 take 10 mg by mouth [...] Start: 06-04-2019 take 1 tablet by diamond th four times daily as needed Bentyl use dicyclomine Dose : 20 mg =, Oral, QID, PRN abdominal discomfort, # 15 tab(s), 0 Refill(s) Start Date: 06/04/19 Status: Ordered Start: 06-10-2017 End: 12-25-2023 take 2 capsules by mouth four times daily as needed for pain Dicyclomine 10 MG capsule Discontinued 20 mg PO 4 TIMES DAILY NEEDED as needed for Pain June 10, 2017 12:00am December 25, 2023 3:45am Start: 06-10-2017 End: 12-25-2023 take 20 mg by mouth four times daily as needed Dicyclomine Discontinued 20 MG PO 4 TIMES DAILY NEEDED June 10, 2017 12:00am December 25, 2023 3:45am Comment on above: TAKE 1 TABLET BY DIAMOND TH 2-4 TIMES DAILY diphenhydrAMINE-maalox- lidocaine (BMX 1:1:1) 1:1:1 liqd (2 sources) Start: 11-19-2023 diphenhydrAMINE-maalox -lidocaine (BMX 1:1:1) 1:1:1 liqd Mix in equal amounts - 1 T every 2hrs as needed for mouth pain, Swish/swallow or expectorate. (8oz) 240 mL 11/19/2023 Active Start: 11-19-2023 diphenhydrAMIN G-vmaemf-bebpeqnwm (BMX 1:1:1) 1:1:1 liqd Mix in equal amounts - 1 T every 2hrs as needed for mouth pain, Swish/swallow or expectorate. (8oz) 240 mL 0 11/19/2023 Active Comment on above: Mix in equal amounts - 1 T every 2hrs as needed for mouth pain, Swish/swallow or expectorate. (8oz) doxycycline monohydrate 100 mg oral capsule (9 sources) Tetracycline-class Drug Start: take 1 capsule by mouth twice daily Doxycycline Monohydrate 100 mg capsule Active 100 mg PO TWICE A DAY September 19, 2024 1:00am Start: 11-19-2023 End: 11-24-2023 take 1 tablet by mouth twice daily doxycycline (VIBRA-TABS) 100 mg tablet Take 1 tablet by mouth two times a day for 5 days. 10 tablet 0 11/19/2023 11/24/2023 Active Start: 01-03-2023 End: 08-04-2023 take 1 capsule by mouth twice daily Doxycycline Monohydrate 100 mg capsule Discontinued 100 mg PO TWICE A DAY January 03, 2023 12:00am August 04, 2023 3:41pm Comment on above: Take 1 tablet by diamond th two times a day for 5 days. famotidine 20 mg oral tablet (20 sources) Histamine-2 Receptor Antagonist Start: 06-22-2021 take 1 tablet by mouth twice daily Famotidine 20 mg tablet Active 20 mg PO TWICE A DAY June 16, 2024 12:00am Start: 02-04-2016 End: 06-10-2017 take 1 tablet by mouth at bedtime Famotidine (Pepcid) 40 MG tablet Active 40 mg PO AT BEDTIME June 10, 2017 5:33pm Comment on above: Take 20 mg by mouth at bedtime as needed. fluticasone propionate 0.05 mg/actuat metered dose nasal spray (8 sources) Corticosteroid Start: 2 take 1 spray(s) nasal route twice daily fluticasone (FLONASE ALLERGY RELIEF) 50 mcg/actuation nasal spray Indications: Viral URI with cough Use 1 [place] in each nostril twice daily. 1 Each 10/05/2021 Active Start: 06-27-2017 take 1 dose nasal ro perry twice daily fluticasone 50 mcg/inh NASAL spray Dose = 1 spray(s), Nostril, each, BID, 0 Refill(s) Start Date: 06/27/17 Status: Ordered Comment on above: Use 1 [place] in each nostril twice daily. fluticasone 50 mcg/inh NASAL spray (1 source) Start: 06-27-20 take 1 dose nasal route twice daily fluticasone 50 mcg/inh NASAL spray Dose = 1 spray(s), Nostril, each, BID, 0 Refill(s) Start Date: 06/27/17 Status: Ordered 12 hr guaiFENesin 1200 mg extended release oral tablet (1 source) Start: 01-10-20 25 take 1 tablet by mouth twice daily as needed for congestion, then take 1 tablet by mouth every twelve hours as needed for congestion Guaifenesin (Mucinex) 1,200 mg tablet extended release 12hr Active 1200 mg PO TWICE A DAY as needed for congestion 14 October 13, 2024 4:06pm ibuprofen 200 mg oral tablet (8 sources) [...] days. 5 tablet 0 05/02/2022 05/07/2022 Active melatonin 10 mg oral capsule (11 sources) Start: 11-13-19 Melatonin 10 mg oral capsule Dose : [...] 0 Refill(s) Start Date: 06/10/17 Status: Ordered ondansetron 4 mg disintegrating oral tablet (20 sources) Serotonin-3 Receptor Antagonist Start: 03-19-2025 take 1 tablet by mouth every six hours as needed for nausea and vomiting Ondansetron 4 mg tablet,disintegrating Active 4 mg PO EVERY 6 HOURS as needed for nausea and vomiting March 19, 2025 12:00am Start: 08-20-2022 End: 12-25-2023 take 1 tablet by mouth every eight hours as needed for nausea Ondansetron 4 mg tablet,disintegrating Discontinued 4 mg PO EVERY 8 HOURS NEEDED as needed for Nausea February 28, 2023 12:00am June 05, 2023 6:49pm Start: 06-10-2017 take 1 tablet by diamond th every eight hours as needed Ondansetron (Zofran [...] above: Take 1 tablet by diamond th every 8 hours as needed. Pancrelipase, Gff-Xoyw-Rvzo, (CREON PO) (8 sources) Pancrelipase, Uth-Ldik-Enxq, (CREON PO) Take by mouth 0 Active QUEtiapine 25 mg oral tablet (20 sources) Atypical Antipsychotic Start: take 1 tablet by mouth three times daily Quetiapine 25 mg tablet Active 25 mg PO THREE TIMES A DAY June 28, 2021 12:00am Start: 01-12-2019 take 25 mg by mouth [...] 0 Refill(s) Start Date: 06/27/17 Status: Ordered sulfamethoxazole 800 mg / trimethoprim 160 mg oral tablet (1 source) Dihydrofolate Reductase Inhibitor Antibacterial, Sulfonamide Antimicrobial Start: 07-04-2024 Sulfamethoxazole-T rimethoprim 800-160 mg tablet Active 1 {tbl} PO TWICE A DAY July 04, 2024 12:00am triamcinolone acetonide 0.055 mg/actuat metered dose nasal spray (5 sources) Corticosteroid Start: 02-16-2022 take 2 spray(s) nasal route once daily triamcinolone (NASACORT ALLERGY 24HR) 55 MCG/ACT nasal inhaler 2 sprays by Each Nostril route daily 1 each 3 02/16/2022 Active Completed/Discontinued Medications Medication Drug Class(es) Dates Sig (Normalized) Sig (Original) amylase 70724 unt / lipase 3000 unt / protease 9500 unt delayed release oral capsule (16 sources) Start: 06-17-2021 End: 12-25-2023 take 8630-4300 capsules by mouth three times daily Tzxeco-Rubnclhl-Bi ylase (Creon) 3,000-9,500- 15,000 unit Capsule,Delayed Release(Dr/Ec) Discontinued 1 NMA PO THREE TIMES A DAY June 29, 2021 12:00am December 25, 2023 3:45am with meals benzonatate 100 mg oral capsule (6 sources) Non-narcotic Antitussive Start: 10-05-2021 End: 12-14-2024 take 2 capsules by mouth every eight hours as needed benzonatate (TESSALON PERLES) 100 mg capsule Indications: Viral URI with cough Take 2 capsules by mouth every 8 hours as needed. 60 capsule 10/05/2021 12/14/2024 Discontinued Comment on above: Take 2 capsules by m outh every 8 hours as needed. chlorhexidine gluconate 1.2 mg/ml mouthwash (6 sources) Start: 07-30-2015 End: 12-14-2024 Chlorhexidine Gluconate (PERIDEX) 0.12 % solution Use 15 mL as instructed twice daily. 60 mL 0 07/30/2015 12/14/2024 Discontinued Comment on above: Use 15 mL as instruc hardik twice daily. clindamycin 150 mg oral capsule (16 sources) Lincosamide Antibacterial Start: 07-09-2013 End: 11-05-2013 take 1 mg by mouth four times daily Clindamycin Hcl 150 MG capsule Discontinued mg PO 4 TIMES DAILY July 09, 2013 12:00am November 05, 2013 7:43am Start: 07-09-2013 End: 11-05-2013 take 1 mg by mouth four times daily Clindamycin Hcl Discontinued MG PO 4 TIMES DAILY July 09, 2013 12:00am November 05, 2013 7:43am take 1 capsule by [facility] three times daily clindamycin (CLEOCIN) 300 MG capsule Take 300 mg by mouth 3 times daily 0 Active esomeprazole 20 mg delayed release oral capsule (17 sources) Proton Pump Inhibitor Start: 09-03-2022 End: 12-25-2023 take 1 capsule by mouth once daily Esomeprazole Magnesium (Nexium) 20 mg capsule,delayed release(DR/EC) Discontinued 20 mg PO DAILY September 03, 2022 1:00am December 25, 2023 3:45am Start: 2015 End: 12-14-2024 take 1 capsule by mouth once daily esomeprazole magnesium (NEXIUM 24HR) 22.3 mg cpDR Take 1 capsule by mouth once daily. 30 capsule 11 2015 12/14/2024 Discontinued Comment on above: Take 1 capsule by [facility] once daily. FLUoxetine 20 mg oral capsule (6 sources) Serotonin Reuptake Inhibitor Start: 08-19-20 End: 12-15-19 take 1 capsule by mouth once daily FLUoxetine (PROZAC) 20 mg capsule Indications: Anxiety and depression Take 1 capsule by mouth once daily. 30 capsule 3 08/19/2015 12/14/2024 Discontinued Comment on above: Take 1 capsule by [facility] once daily. hydrOXYzine pamoate 50 mg oral [...] on above: Take 1 capsule by mo [facility] once daily. lidocaine hydrochloride 20 mg/ml mucous membrane topical solution (4 sources) Antiarrhythmic, Amide Local Anesthetic Start: 07-04-2021 End: 02-16-2022 lidocaine viscous hcl (XYLOCAINE) 2 % SOLN solution Take 15 mLs by mouth as needed for Irritation 100 mL 0 07/04/2021 02/16/2022 Discontinued (LIST CLEANUP) loratadine 10 mg oral tablet (20 sources) Start: 08-07-2015 End: 12-25-2023 take 1 tablet by mouth once daily Loratadine (Allergy Relief (Loratadine)) 10 MG tablet Discontinued 10 mg PO DAILY June 10, 2017 12:00am December 25, 2023 3:45am LORATADINE PO Ta ke by mouth 0 Active Comment on above: Take 1 tablet by [facility] once daily. melatonin 10 mg / vitamin b6 10 mg extended release oral tablet (14 sources) Start: 06-10-2017 End: 12-25-2023 take 1 tablet by mouth at bedtime Melatonin-Pyridoxine Hcl (B6) 1 EACH tablet, IR and ER, biphasic Discontinued 1 NMA PO AT BEDTIME June 10, 2017 12:00am December 25, 2023 3:45am Start: 06-10-2017 End: 12-25-2023 Melatonin-Pyridoxine Hcl (B6 ) Discontinued 1 EACH PO AT BEDTIME June 10, 2017 12:00am December 25, 2023 3:45am promethazine hydrochloride 25 mg oral tablet (13 sources) Phenothiazine Start: 09-03-2022 End: 06-05-2023 take 1 tablet by mouth three times daily as needed for nausea and vomiting Promethazine 25 mg tablet Discontinued 25 mg PO THREE TIMES A DAY as needed for nausea and vomiting September 03, 2022 1:00am June 05, 2023 6:50pm Start: 06-10-2017 take 25 mg by mouth every six hours as needed Promethazine Active 25 MG PO EVERY 6 HOURS NEEDED June 10, 2017 12:00am sucralfate 100 mg/ml oral suspension (18 sources) Aluminum Complex Start: 08-20-2022 End: 06-05-2023 take 1 mL by mouth three times daily as needed for pain Sucralfate (Carafate) 100 mg/mL suspension Discontinued 10 mL PO THREE TIMES A DAY as needed for epigastric pain August 20, 2022 1:24pm June 05, 2023 [...] sources) Partial Cholinergic Nicotinic Agonist Start: 05-01-20 15 End: 12-15-19 25 Varenicline (CHANTIX) 0.5 mg [...] Anxiety state; Translations: [Generalized anxiety disorder] Chronic Chronic obstructive pulmonary disease and bronchiectasis (10 sources) Bronchitis; Translations: [Bronchitis, not specified as acute or chronic] Onset: Episodic Developmental disorders (6 sources) Developmental academic disorder; Translations: [Developmental disorder of scholastic skills, unspecified] 07-20-2014 Chronic Diseases of mouth; excluding dental (1 source) Oral lesion; Translations: [Other lesions of oral mucosa] 11-19-2023 Episodic Disorders of teeth and jaw (14 sources) Gingivitis; Translations: [Chronic gingivitis, plaque induced] 10-29-2015 Chronic Disorders of teeth and jaw (20 sources) Dental caries; Translations: [Dental caries, unspecified] Onset: 5 08-05-2015 Episodic E Codes: Natural/environment (14 sources) Bitten or stung by nonvenomous insect and other nonvenomous arthropods, initial encounter; Translations: [Bedbug bite] 10-13-2015 Episodic Esophageal disorders (20 sources) Acid reflux; Translations: [Gastroesophageal reflux disease] 10-28-2015 Chronic Fever of unknown origin (14 sources) Fever with chills; Translations: [Fever, unspecified] 10-29-2015 Episodic Gastritis and duodenitis (14 sources) Gastritis; Translations: [Gastritis, unspecified, without bleeding] 09-03-2022 Episodic Genitourinary symptoms and ill-defined conditions (4 sources) Dysuria; Translations: [Dysuria] Episodic Headache, including migraine (20 sources) Headache; Translations: [Acute headache] Onset: Episodic Immunizations and screening for infectious disease (14 sources) Patient encounter status; Translations: [Encounter for screening for infections with a predominantly sexual mode of transmission] 01-13-2015 Episodic Nausea and vomiting (20 sources) Nausea; Translations: [Nausea and vomiting] Onset: 08-18-2016 Episodic Nonspecific chest pain (14 sources) Atypical chest pain; Translations: [Other chest pain] 04-27-2014 Episodic Other ear and sense organ disorders (3 sources) Unilateral earache 04-02-2016 Episodic Other gastrointestinal disorders (14 sources) Diarrhea; Translations: [Diarrhea, unspecified] 08-09-2015 Episodic Other gastrointestinal disorders (9 sources) Swallowing painful; Translations: [Dysphagia, unspecified] 10-18-2022 Episodic Other gastrointestinal disorders (2 sources) History of gastroesophageal reflux disease; Translations: [Personal history of other diseases of the digestive system] 12-25-2023 Episodic Other gastrointestinal disorders (1 source) Constipation; Translations: [Constipation, unspecified] 08-28-2024 Episodic Other injuries and conditions due to external causes (14 sources) Muscle strain; Translations: [Other injury of unspecified body region, initial encounter] 04-16-2020 Episodic Other liver diseases (14 sources) Elevated liver enzymes level; Translations: [High liver transaminase level] 07-02-2021 Episodic Other lower respiratory disease (14 sources) Hypoxia; Translations: [Hypoxemia] 07-02-2021 Episodic Other lower respiratory disease (1 source) Hemoptysis; Translations: [Hemoptysis] 09-27-2024 Episodic Other nervous system disorders (11 sources) H/O: migraine; Translations: [Personal history of other diseases of the nervous system and sense organs] 09-11-2022 Episodic Other upper respiratory disease (1 source) Allergic rhinitis due to pollen; Translations: [Allergic rhinitis due to pollen] Chronic Other upper respiratory disease (6 sources) Seasonal allergy; Translations: [Other seasonal allergic rhinitis] 07-20-2014 Chronic Other upper respiratory disease (1 source) Allergic rhinitis; Translations: [Allergic rhinitis, unspecified] 10-21-2024 Chronic Other upper respiratory infections (1 source) Bacterial sinusitis; Translations: [Chronic sinusitis, unspecified] 11-19-2023 Chronic Other upper respiratory infections (20 sources) Viral upper respiratory tract infection; Translations: [Acute upper respiratory infection, unspecified] 05-17-2014 Episodic Residual codes; unclassified (1 source) Tobacco use and exposure - finding; Translations: [Tobacco use] 06-24-2024 Episodic Skin and subcutaneous tissue infections (19 sources) Furuncle; Translations: [Abscess] 10-09-2017 Episodic Substance-related disorders (6 sources) Tobacco user; Translations: [Nicotine dependence, unspecified, uncomplicated] 07-20-2014 Chronic Unclassified (1 source) Unknown / UNK(Unknown) Onset: 7 Unclassified (1 source) Cough, unspecified; Translations: [Cough, unspecified] Onset: 5 Urinary tract infections (3 sources) Urinary tract infectious disease; Translations: [Urinary tract infection, site not specified] Onset: 2 Episodic Viral infection (20 sources) COVID-19; Translations: [Pneumonia due to COVID-19 virus] 07-02-2021 Episodic Past or Other Problems Problem Classification Problem Date Documented Da te Episodic/Chronic Abdominal pain (20 sources) Abdominal pain; Translations: [Epigastric pain] Onset: 07-26-2024 06-25-2016 Episodic Comment on above: nausea and vomiting Other upper respiratory disease (1 source) Nasal congestion; Translations: [Nasal congestion] Onset: 12-19-2024 Episodic Residual codes; unclassified (1 source) Procedure and treatment not carried out due to patient leaving prior to being seen by health care provider; Translations: [Procedure and treatment not carried out due to patient leaving prior to being seen by health care provider] Onset: 10-12-2024 Episodic Results Test Name Value Interpretation Reference Range Facility Emergency Department Summary on 03-19-2025 Emergency Department Summary [facility] Medical Records Department [address] [place] [address] Emergency Department Summary 03/19/25 MR#: [id number] Acct: [id number] Name: GILBERTO JOHNSON Rep #: [id number] : 1985 39 From: Marco Antonio Cintron MD PCP: Care Physician,No Primary Status:DEP ER Location: ED HPI HPI - GI History of Present Illness Chief Complaint: Nausea/Vomiting Informant: patient Nausea/Vomiting/Em esis GI Symptom: Positive for Nausea and Vomiting Onset: Today Severity: Mild Diarrhea/Melena/He matochezia GI Symptom: Negative for Diarrhea, Melena or Hematochezia Associated Symptoms Associated Symptoms: Negative for Dysuria, Frequency, Hematuria or Urgency Narrative Narrative: 39-year-old male nausea and vomiting today. No diarrhea. No hematemesis. No melena. No abdominal pain. History of prior reflux pancreatitis. Really denies any significant abdominal pain. No fever. No dysuria. Prior similar symptoms: Yes Recent Illness/[facility]ospital[facility] at[facility] Medical History Acute sinusitis, unspecified Pancreatitis [...] #6 12/06/24 Unknown Rx (Zithromax Z-Phillip) tabs ondansetron 4 mg disintegrating 4 mg PO Q6H PRN nausea and 5 Unknown Rx tablet vomiting #7 tabs Allergy/AdvReac Type Severity Reaction Status Date [...] not use ROS ROS ED ROS Narrative Nausea and vomiting. Constitutional Constitutional ED: Denies chills or fever(s) ENT ENT ED: Denies ear pain Cardiovascular Cardiovascular: Denies chest pain Respiratory/Chest Respiratory/Chest: Denies cough or dyspnea Gastrointestinal Gastrointestinal: Reports nausea and vomiting; Denies abdominal pain, diarrhea or melena Genitourinary Genitourinary ED: Denies dysuria or hematuria Musculoskeletal Musculoskeletal: Denies arthralgias Integumentary Denies abscess Neurologic Neurologic: Denies headache(s) Psychiatric Psychiatric: Denies anxiety Endocrine Endocrinology: Denies polydipsia Hematologic/Lympha tic Hematologic/Lympha tic: Denies easy bleeding Allergic/Immunolog ic Allergic/Immunolog ic ED: Denies mouth swelling, tongue swelling or urticaria EXAM Physical Exam Narrative Exam Narrative: Well-appearing 39-year-old male. Vital signs stable afebrile. H EENT exam pupils round react light. Moist mucous membranes. Neck nontender no JVD. No lymphadenopathy. Lungs clear to auscultation bilaterally. Heart regular rhythm rate about 90 no murmur. Chest wall ribs nontender. Abdomen soft nontender. Nondistended normal bowel sounds without peritoneal signs. No right upper or right lower quadrant tenderness. No distention or obstruction. No hernia or mass. Very benign abdominal exam. Moving all 4 extremities. Nontender no edema. Normal range of motion. Normal strength. Neurologically is awake alert. Answer questions following commands. Back nontender. Const Vital Signs: 03/19/25 00:42 Temperature 98.9 F Temperature Source Oral Pulse Rate 91 Respirat (more content not included)... Normal [facility] CNOVon 12-14-2024 CN Office Visit ([facility]) -------- GILBERTO JOHNSON ([id number]) 1985 M Date Time Provider Department 12/14/24 6:45 PM ALEX [facility] During your visit today, we recorded the following information about you: Temperature Pulse Respiration Blood pressure 97.9 degrees 101/minute 16/minute 122/74 Weight 70.5 kg Alex Landers MD 12/14/2024 7:08 PM Signed [facility] Subjective Gilberto Johnson is a [...] RELIEF) 50 mcg/actuation nasal spray Use 1 [place] in each nostril twice daily. - loratadine [...] Varenicline (RUANO (more content not included)... Normal [facility] Emergency Department Summary on 12-06-2024 Emergency Department Summary [facility] Medical Records Department [address] [place] [address] Emergency Department Summary 12/06/24 MR#: [id number] Acct: [id number] Name: GILBERTO JOHNSON Rep #: [id number] : 1985 39 From: Marco Antonio Cintron [...] Benign exam. (more content not included)... Normal [facility] Emergency Department Summary on 10-13-2024 Emergency Department Summary [facility] Medical Records Department [address] [place] [address] Emergency Department Summary 10/13/24 MR#: [id number] Acct: [id number] Name: GILBERTO JOHNSON Rep #: [id number] : 1985 39 From: Antwan Jaimes PCP: [...] he stopped taking his cetirizine for allergies. [facility] Medical History Acute sinusitis, unspecified Pancreatitis [...] stable condition. (more content not included)... Normal [facility] Chest PA and Lateralon 09-19 Chest PA and Lateral [facility] Imaging Services [address] [place] [address] Chest PA and Lateral MR#: [id number] Acct: [id number] Name: GILBERTO JOHNSON Rep #: [id number] : 1985 M 39 From: Derrek Shepard MD PCP: Care Physician,No Primary Status: REG ER Study: Chest PA and Lateral Date of Exam: 09/19/24 Exam# [id number] Ordering Dr: Michel Elena MD [id number] EXAM: XR CHEST, 2 VIEWS CLINICAL [...] Michel Elena MD; No Primary Care Physician Sail Finisher Hand: Signed [facility] Emergency Department Summary on 09-19-2024 Emergency Department Summary [facility] Medical Records Department [address] [place] [address] Emergency Department Summary 09/19/24 MR#: [id number] Acct: [id number] Name: GILBERTO JOHNSON Rep #: [id number] : 1985 39 From: Michel Elena MD PCP: Care Physician,No Primary Status:REG ER Location: ED HPI History of Present Illness Chief Complaint: Cold Sx Detail of Chief Complaint: Productive cough with hemoptysis Informant: patient Onset/Context/Timi green Onset: Weeks (Onset of illness 2 weeks [...] symptoms: Yes Recent Illness/Hospitaliz ation: No PFSH PFS Medical History Acute sinusitis, unspecified Pancreatitis Chronic [...] 800 1 tab PO BID #6 TABLETS 10/01/24 Unknown Rx mg-trimethoprim 160 mg tablet doxycycline [...] toxic. Genera (more content not included)... Normal [facility] Acute Abdomen Inc Cheston Acute [facility]domen Inc Chest [facility] Imaging Services [address] [place] [address] Acute Abdomen Inc Chest MR#: [id number] Acct: [id number] Name: GILBERTO JOHNSON Rep #: [id number] : 1985 M 39 From: Robert Rhoades PCP: Care Physician,No Primary Status: REG ER Study: Acute Abdomen Inc Chest Date of Exam: 08/20/24 Exam# [id number] Ordering Dr: Alan Begum MD [id number] STUDY: X-RAY - ACUTE ABDOMINAL SERIES REASON FOR EXAM: Male, 39 years old. pain TECHNIQUE: Single view of the chest. Supine, 2 view(s) of the abdomen were obtained. COMPARISON: 9.223 FINDINGS: The lungs are clear and expanded. [...] Alan Begum MD; No Primary Care Physician Sail Finisher Hand: Signed [facility] Emergency Department Summary on 08-20-2024 Emergency Department Summary [facility] Medical Records Department [address] [place] [address] Emergency Department Summary 08/20/24 MR#: [id number] Acct: [id number] Name: GILBERTO JOHNSON Rep #: [id number] : 1985 39 From: Alan Begum MD [...] is more stool present in his colon. [facility] Medical History Acute sinusitis, unspecified Pancreatitis [...] range of motion extremities. Const Vital Signs: 11/17/24 13:21 Temperature 97.9 F Temperature Source Oral [...] negative n (more content not included)... Normal [facility] Urinalysis, Completeon 08-20 BACTERIA 1+ /hpf Normal None Seen [facility] Comment on above: Order Comment: DAWOOD CTOR TO SPECIFY Performed By: #### L 400.0001 #### [facility] Laboratory [address] [place], [address] RBC 0-5 SEEN Normal 0-5 [facility] Comment on above: Order Comment: DAWOOD CTOR TO SPECIFY Performed By: #### L 400.0001 #### [facility] [address] [place], [address] EPI,SQUAMOUS 0-5 SEEN Normal 0-5 [facility] Comment on above: Order Comment: DAWOOD CTOR TO SPECIFY Performed By: #### L 400.0001 #### [facility] [address] [place], [address] Mucus Ql (Urine sed) 0 SEEN Normal [facility] Comment on above: Order Comment: DAWOOD CTOR TO SPECIFY Performed By: #### L 400.0001 #### [facility] [address] [place], [address] WBC 0 SEEN Normal 0-5 [facility] Comment on above: Order Comment: DAWOOD CTOR TO SPECIFY Performed By: #### L 400.0001 #### [facility] [address] [place], [address] Urine Cultureon 07-05-2024 URC Culture exhibits no growth. Normal [facility] Comment on above: Performed By: #### M 100.2200 #### [facility] [address] [place], [address] CBC W/Diff, Automatedon 10-0 Absolute Neut Normal 2.0-7.7 [facility] Comment on above: Performed By: #### L 500.4050, L100.0100 #### [facility] [address] [place], [address] HCT Normal 40-54 [facility] Comment on above: Performed By: #### L 500.4050, L100.0100 #### [facility] [address] [place], [address] HGB Normal 13.0-16.5 [facility] Comment on above: Performed By: #### L 500.4050, L100.0100 #### [facility] [address] [place], [address] MCH Normal 27.0-32.0 [facility] Comment on above: Performed By: #### L 500.4050, L100.0100 #### [facility] [address] [place], [address] MCHC Normal 32-36 [facility] Comment on above: Performed By: #### L 500.4050, L100.0100 #### [facility] [address] [place], [address] MCV Normal 80-94 [facility] Comment on above: Performed By: #### L 500.4050, L100.0100 #### [facility] [address] [place], [address] NEUT% Normal 47-70 [facility] Comment on above: Performed By: #### L 500.4050, L100.0100 #### [facility] [address] [place], [address] PLT Normal 150-450 [facility] Comment on above: Performed By: #### L 500.4050, L100.0100 #### [facility] [address] [place], [address] RBC Normal 4.6-6.2 [facility] Comment on above: Performed By: #### L 500.4050, L100.0100 #### [facility] [address] [place], [address] RDW CV Normal 11.6-14.6 [facility] Comment on above: Performed By: #### L 500.4050, L100.0100 #### [facility] [address] [place], [address] RDW SD Normal 35.1-43.9 [facility] Comment on above: Performed By: #### L 500.4050, L100.0100 #### [facility] [address] [place], [address] WBC Normal 4.4-11.0 [facility] Comment on above: Performed By: #### L 500.4050, L100.0100 #### [facility] [address] [place], [address] Comprehensive Metabolic Prof ilemelyn 07-04-2024 ALB Normal 3.2-5.0 [facility] Comment on above: Result Comment: GREGORY ENT DISCHARGED-NO SPECIMEN REC'D Performed By: #### L 500.4050, L100.0100 #### [facility] [address] [place], [address] ALK P Normal 45-117 [facility] Comment on above: Result Comment: GREGORY ENT DISCHARGED-NO SPECIMEN REC'D Performed By: #### L 500.4050, L100.0100 #### [facility] [address] [place], [address] ALT Normal 16-61 [facility] Comment on above: Result Comment: GREGORY ENT DISCHARGED-NO SPECIMEN REC'D Performed By: #### L 500.4050, L100.0100 #### [facility] [address] [place], [address] AST Normal 15-37 [facility] Comment on above: Result Comment: GREGORY ENT DISCHARGED-NO SPECIMEN REC'D Performed By: #### L 500.4050, L100.0100 #### [facility] [address] [place], [address] BUN Normal 7-18 [facility] Comment on above: Result Comment: GREGORY ENT DISCHARGED-NO SPECIMEN REC'D Performed By: #### L 500.4050, L100.0100 #### [facility] [address] [place], [address] BUN/CRE Normal 10-20 [facility] Comment on above: Result Comment: GREGORY ENT DISCHARGED-NO SPECIMEN REC'D Performed By: #### L 500.4050, L100.0100 #### [facility] [address] [place], [address] CA,Total Normal 8.5-10.1 [facility] Comment on above: Result Comment: GREGORY ENT DISCHARGED-NO SPECIMEN REC'D Performed By: #### L 500.4050, L100.0100 #### [facility] [address] [place], [address] CL Normal 98-107 [facility] Comment on above: Result Comment: GREGORY ENT DISCHARGED-NO SPECIMEN REC'D Performed By: #### L 500.4050, L100.0100 #### [facility] [address] [place], [address] CO2 Normal 21.0-32.0 [facility] Comment on above: Result Comment: GREGORY ENT DISCHARGED-NO SPECIMEN REC'D Performed By: #### L 500.4050, L100.0100 #### [facility] [address] [place], [address] CREAT,SERUM Normal 0.70-1.30 [facility] Comment on above: Result Comment: GREGORY ENT DISCHARGED-NO SPECIMEN REC'D Performed By: #### L 500.4050, L100.0100 #### [facility] [address] [place], [address] EST GFR Normal >60 [facility] Comment on above: Result Comment: GREGORY ENT DISCHARGED-NO SPECIMEN REC'D Performed By: #### L 500.4050, L100.0100 #### [facility] [address] [place], [address] EST GFR - AA Normal >60 [facility] Comment on above: Result Comment: GREGORY ENT DISCHARGED-NO SPECIMEN REC'D Performed By: #### L 500.4050, L100.0100 #### [facility] [address] [place], [address] GAP Normal 5-15 [facility] Comment on above: Result Comment: GREGORY ENT DISCHARGED-NO SPECIMEN REC'D Performed By: #### L 500.4050, L100.0100 #### [facility] [address] [place], [address] GLU Normal 74-106 [facility] Comment on above: Result Comment: GREGORY ENT DISCHARGED-NO SPECIMEN REC'D Performed By: #### L 500.4050, L100.0100 #### [facility] [address] [place], [address] Potassium Normal 3.5-5.1 [facility] Comment on above: Result Comment: GREGORY ENT DISCHARGED-NO SPECIMEN REC'D Performed By: #### L 500.4050, L100.0100 #### [facility] [address] [place], [address] T BILI Normal 0.20-1.00 [facility] Comment on above: Result Comment: GREGORY ENT DISCHARGED-NO SPECIMEN REC'D Performed By: #### L 500.4050, L100.0100 #### [facility] [address] [place], [address] T PROT Normal 6.4-8.2 [facility] Comment on above: Result Comment: GREGORY ENT DISCHARGED-NO SPECIMEN REC'D Performed By: #### L 500.4050, L100.0100 #### [facility] [address] [place], [address] Comprehensive Metabolic Profil Normal 136-145 [facility] Comment on above: Result Comment: GREGORY ENT DISCHARGED-NO SPECIMEN REC'D Performed By: #### L 500.4050, L100.0100 #### [facility] [address] [place], [address] Emergency Department Summary on 07-04-2024 Emergency Department Summary [facility] Medical Records Department [address] [place] [address] Emergency Department Summary 07/04/24 MR#: [id number] Acct: [id number] Name: GILBERTO JOHNSON Rep #: [id number] : 1985 38 From: Nolan Brady DO [...] some subjective chills but denies any fevers. [facility] Medical History Acute sinusitis, unspecified Pancreatitis [...] viral illne (more content not included)... Normal [facility] Urinalysis, Completeon 07-04 BACTERIA RARE Normal None Seen [facility] Comment on above: Order Comment: DAWOOD CTOR TO SPECIFY Performed By: #### L 400.0001 #### [facility] [address] [place], [place], [address] WBC >100 SEEN Normal 0-5 [facility] Comment on above: Order Comment: DAWOOD CTOR TO SPECIFY Performed By: #### L 400.0001 #### [facility] [address] [place], [address] EPI,SQUAMOUS 0 SEEN Normal 0-5 [facility] Comment on above: Order Comment: DAWOOD CTOR TO SPECIFY Performed By: #### L 400.0001 #### [facility] [address] [place], [address] Mucus Ql (Urine sed) 0 SEEN Normal [facility] Comment on above: Order Comment: COLLE CTOR TO SPECIFY Performed By: #### L 400.0001 #### [facility] [address] [place], [address] RBC 0 SEEN Normal 0-5 [facility] Comment on above: Order Comment: COLLE CTOR TO SPECIFY Performed By: #### L 400.0001 #### [facility] [address] [place], [address] Emergency Department Summary on 06-16-2024 Emergency Department Summary [facility] Medical Records Department [address] [place] [address] Emergency Department Summary 06/16/24 MR#: [id number] Acct: [id number] Name: GILBERTO JOHNSON Rep #: [id number] : 1985 38 From: Matt Whatley DO [...] to this he comes in for evaluation. [facility] Medical History (Updated 06/16/24 @ 23:[address] Matt Whatley DO) Acute sinusitis, unspecified Pancreatitis Chronic GERD [...] on palpat (more content not included)... Normal [facility] Absolute lymphocyte countOrd ered By: Varun Early on 12-25-2023 Lymphocytes Auto (Unsp spec) [#/Vol] 1.00 10*3/uL 0.83-4.51 [facility] Automated lymphocyte count a s percentage of total leukocytesOrdered By: Varun Early on 12-25-2023 Lymphocytes/100 WBC Auto (Unsp spec) 5.8 % 19-41 [facility] Basophil percentageOrdered B y: Varun Early on 12-25-2023 Basophils/100 WBC (Bld) 0.4 % 0-1 [facility] Bilirubin [Mass/Vol] 1.10 mg/dL 0.20-1.00 [facility] Comment on above: For patients on eltr ombopag therapy, use of Dimension [place] TBIL is not recommended. Chloride [Moles/Vol] 105 mmol/L 98-107 [facility] Eosinophils/100 WBC (Bld) 0.5 % 0-5 [facility] Glucose [Mass/Vol] 91 mg/dL 74-106 [facility] Hemoglobin (Bld) [Mass/Vol] 17.9 g/dL 13.0-16. 5 [facility] Monocytes/100 WBC (Bld) 7.1 % 0-10 [facility] Neutrophils (Bld) [#/Vol] 14.8 10*3/uL 2.0-7.7 [facility] Neutrophils/100 WBC (Bld) 85.7 % 47-70 [facility] Potassium [Moles/Vol] 3.2 mmol/L 3.5-5.1 [facility] Protein [Mass/Vol] 8.4 g/dL 6.4-8.2 [facility] Sodium [Moles/Vol] 142 mmol/L 136-145 [facility] WBC (Bld) [#/Vol] 17.2 10*3/uL 4.4-11.0 [facility] Determination of erythrocyte mean corpuscular volume (MCV)Ordered By: Varun Early on 12-25-2023 MCV (RBC) [Entitic vol] 91.4 fL 80-94 [facility] Erythrocyte distribution wid th ratioOrdered By: Varun Early on 12-25-2023 Erythrocyte distribution width (RBC) [Ratio] 11.9 % 11.6-14.6 [facility] Erythrocyte distribution wid th standard deviationOrdered By: [facility] on 12-25-2023 Erythrocyte distribution width (RBC) [Entitic vol] 39.5 fL 35.1-43.9 [facility] Hematocrit Auto (Bld) [Volum e fraction]Ordered By: Varun Early on 12-25-2023 Hematocrit (Bld) [Volume fraction] 51.2 % 40-54 [facility] Immature granulocytes/100 WB C Auto (Bld)Ordered By: Varun Early on 12-25-2023 Immature granulocytes/100 WBC (Bld) 0.500 % 0.0-0.9 [facility] Comment on above: IG% - Immature Granu locytes (promyelocytes, myelocytes and metamyelocytes) > 1% indicates that a LEFT SHIFT is Present. Laboratory - Chemistry and C hemistry - challengeOrdered By: Varun Early on 12-25-2023 Albumin/Globulin [Mass ratio] 1.2 {ratio} 0.9-2.4 [facility] ALP [Catalytic activity/Vol] 69 U/L 45-117 [facility] ALT [Catalytic activity/Vol] 23 U/L 16-61 [facility] CO2 [Moles/Vol] 32.0 mmol/L 21.0-32.0 [facility] Globulin (S) [Mass/Vol] 3.9 g/dL 2.2-4.2 [facility] Lipase [Catalytic activity/Vol] 42 U/L 13-75 [facility] Comment on above: Please note:LIPASE r evised reference range effective 23. New Lipase methodology. Expected to produce lower values than the previous assay method. NEW Reference Range: 13 - 75 U/L Urea nitrogen/Creatinine [Mass ratio] 15.9 mg/mg 10-20 [facility] Laboratory - Hematology and Cell countsOrdered By: Varun Early on 12-25-2023 MCH (RBC) [Entitic mass] 32.0 pg 27.0-32.0 [facility] MCHC (RBC) [Mass/Vol] 35.0 g/dL 32-36 [facility] Nucleated RBC/100 WBC (Bld) [Ratio] 0 % 0-5 [facility] Platelet mean volume (Bld) [Entitic vol] 10.4 fL 6.2-12.0 [facility] Platelets (Bld) [#/Vol] 201 10*3/uL 150-450 [facility] No Panel InformationOrdered By: Varun Early on 12-25-2023 Estimated Creatinine Clearance Calc 97.58 ml/min [facility] Estimated GFR (MDRD) Amer 116 mL/min >60 [facility] Comment on above: GFR Calc Estimated GFR (MDRD) Non-Af Amer 96 mL/min >60 [facility] Comment on above: Non- GFR Calc RBC Auto (Bld) [#/Vol]Ordere d By: Varun Early on 12-25-2023 RBC (Bld) [#/Vol] 5.60 10*6/uL 4.6-6.2 [facility] Serum or plasma calcium rosalia urement (mass/volume)Ordered By: Varun Early on 12-25-2023 Calcium [Mass/Vol] 9.2 mg/dL 8.5-10.1 [facility] Serum or plasma creatinine m easurement (mass/volume)Ordered By: Varun Early on 12-25-2023 Creatinine [Mass/Vol] 0.94 mg/dL 0.70-1.30 [facility] Comment on above: The validity of the calculated GFR & GFRAA in patients over 70 years has not been determined. Clinical correlation is essential. Serum or plasma urea nitroge n measurement (mass/volume)Ordered By: Varun Early on 12-25-2023 Urea nitrogen [Mass/Vol] 15 mg/dL 7-18 [facility] Thin prep Papanicolaou smear with manual screeningOrdered By: [facility] on 12-25-2023 Thin prep Papanicolaou smear with manual screening 4.5 g/dL 3.2-5.0 [facility] Thin prep Papanicolaou smear with manual screening 21 U/L 15-37 [facility] Thin prep Papanicolaou smear with manual screening 5 5-15 [facility] Absolute lymphocyte countOrd ered By: Dr. Brady on 01-02-2023 Lymphocytes Auto (Unsp spec) [#/Vol] 1.44 10*3/uL 0.83-4.51 [facility] Basophil percentageOrdered B y: Dr. Brady on 01-02-2023 Basophils/100 WBC (Bld) 0.3 % 0-1 [facility] Chloride [Moles/Vol] 108 mmol/L 98-107 [facility] Eosinophils/100 WBC (Bld) 1.0 % 0-5 [facility] Glucose [Mass/Vol] 89 mg/dL 74-106 [facility] Neutrophils (Bld) [#/Vol] 6.5 10*3/uL 2.0-7.7 [facility] Neutrophils/100 WBC (Bld) 71.9 % 47-70 [facility] Potassium [Moles/Vol] 3.2 mmol/L 3.5-5.1 [facility] Sodium [Moles/Vol] 142 mmol/L 136-145 [facility] WBC (Bld) [#/Vol] 9.0 10*3/uL 4.4-11.0 [facility] Blood erythrocytes count (nu mber/volume)Ordered By: Dr. Brady on 01-02-2023 RBC (Bld) [#/Vol] 4.31 10*6/uL 4.6-6.2 [facility] Blood hemoglobin measurement (mass/volume)Ordered By: Dr. Brady on 01-02-2023 Hemoglobin (Bld) [Mass/Vol] 14.0 g/dL 13.0-16. 5 [facility] Blood lymphocytes/100 leukoc ytesOrdered By: Dr. Brady on 01-02-2023 Lymphocytes/100 WBC (Bld) 16.0 % 19-41 [facility] Blood monocytes/100 leukocyt esOrdered By: Dr. Brady on 01-02-2023 Monocytes/100 WBC (Bld) 10.5 % 0-10 [facility] Blood platelet mean volumeOr dered By: Dr. Brady on 01-02-2023 Platelet mean volume (Bld) [Entitic vol] 9.8 fL 6.2-12.0 [facility] Determination of erythrocyte mean corpuscular volume (MCV)Ordered By: Dr. Brady on 01-02-2023 MCV (RBC) [Entitic vol] 91.9 fL 80-94 [facility] Hematocrit Auto (Bld) [Volum e fraction]Ordered By: Dr. Brady on 01-02-2023 Hematocrit (Bld) [Volume fraction] 39.6 % 40-54 [facility] Laboratory - Chemistry and C hemistry - challengeOrdered By: Dr. Brady on 01-02-2023 CO2 [Moles/Vol] 30.0 mmol/L 21.0-32.0 [facility] Urea nitrogen/Creatinine [Mass ratio] 6.0 mg/mg 10-20 [facility] Laboratory - Hematology and Cell countsOrdered By: Dr. Brady on 01-02-2023 Erythrocyte distribution width (RBC) [Entitic vol] 40.3 fL 35.1-43.9 [facility] Erythrocyte distribution width (RBC) [Ratio] 11.9 % 11.6-14.6 [facility] Immature granulocytes/100 WBC (Bld) 0.300 % 0.0-0.9 [facility] Comment on above: IG% - Immature Granu locytes (promyelocytes, myelocytes and metamyelocytes) > 1% indicates that a LEFT SHIFT is Present. MCH (RBC) [Entitic mass] 32.5 pg 27.0-32.0 [facility] Nucleated RBC/100 WBC (Bld) [Ratio] 0 % 0-5 [facility] MCHC Auto (RBC) [Mass/Vol]Or dered By: Dr. Brady on 01-02-2023 MCHC (RBC) [Mass/Vol] 35.4 g/dL 32-36 [facility] No Panel InformationOrdered By: Dr. Brady on 01-02-2023 Estimated Creatinine Clearance Calc 93.27 ml/min [facility] Estimated GFR (MDRD) Amer 109 mL/min >60 [facility] Comment on above: GFR Calc Estimated GFR (MDRD) Non-Af Amer 90 mL/min >60 [facility] Comment on above: Non- GFR Calc Platelets bldOrdered By: Dr. Brady on 01-02-2023 Platelets (Bld) [#/Vol] 147 10*3/uL 150-450 [facility] Serum or plasma calcium rosalia urement (mass/volume)Ordered By: Dr. Brady on 01-02-2023 Calcium [Mass/Vol] 8.8 mg/dL 8.5-10.1 [facility] Serum or plasma creatinine m easurement (mass/volume)Ordered By: Dr. Brady on 01-02-2023 Creatinine [Mass/Vol] 1.00 mg/dL 0.70-1.30 [facility] Comment on above: The validity of the calculated GFR & GFRAA in patients over 70 years has not been determined. Clinical correlation is essential. Serum or plasma urea nitroge n measurement (mass/volume)Ordered By: Dr. Brady on 01-02-2023 Urea nitrogen [Mass/Vol] 6 mg/dL 7-18 [facility] Thin prep Papanicolaou smear with manual screeningOrdered By: Dr. Brady on 01-02-2023 Thin prep Papanicolaou smear with manual screening 4 5-15 [facility] Throat Streptococcus pyogene s antigen detection by immunofluorescenceOrdered By: Dr. Begum on 10-11-2022 S. pyogenes Ag IF Ql (Throat) [facility] STREPAon 10-03-2022 Group A Strep PCR Negative Normal Negative [facility] ([place]) Comment on above: Performed By: #### S TREPA #### [address] [address] Group A Strep PCR Int Normal [facility] ([place]) Comment on above: Result Comment: Nega tive [...] Interp Performed By: #### S PRINCESS #### [address] [address] LABORATORYOrdered By: Modesto Tam on 10-02-2022 S. [...] 09-11-2022 S. pyogenes Ag IF Ql (Throat) [facility] Absolute lymphocyte countOrd ered By: Dr. Pena on 09-03-2022 Lymphocytes Auto (Unsp spec) [#/Vol] 0.50 10*3/uL 0.83-4.51 [facility] Basophil percentageOrdered B y: Dr. Pena on 09-03-2022 Basophils/100 WBC (Bld) 0.3 % 0-1 [facility] Bilirubin [Mass/Vol] 1.60 mg/dL 0.20-1.00 [facility] Comment on above: For patients on eltr ombopag therapy, use of Dimension [place] TBIL is not recommended. Chloride [Moles/Vol] 109 mmol/L 98-107 [facility] Eosinophils/100 WBC (Bld) 0.0 % 0-5 [facility] Glucose [Mass/Vol] 100 mg/dL 74-106 [facility] Comment on above: Fasting Glucose resu lt from 100 to 125 mg/dL suggests IMPAIRED HOMEOSTASIS per A.D.A. criteria. Neutrophils (Bld) [#/Vol] 10.0 10*3/uL 2.0-7.7 [facility] Neutrophils/100 WBC (Bld) 89.3 % 47-70 [facility] Potassium [Moles/Vol] 3.7 mmol/L 3.5-5.1 [facility] Protein [Mass/Vol] 7.4 g/dL 6.4-8.2 [facility] Sodium [Moles/Vol] 144 mmol/L 136-145 [facility] WBC (Bld) [#/Vol] 11.2 10*3/uL 4.4-11.0 [facility] Blood erythrocytes count (nu mber/volume)Ordered By: Dr. Pena on 09-03-2022 RBC (Bld) [#/Vol] 5.24 10*6/uL 4.6-6.2 [facility] Blood hemoglobin measurement (mass/volume)Ordered By: Dr. Pena on 09-03-2022 Hemoglobin (Bld) [Mass/Vol] 16.8 g/dL 13.0-16. 5 [facility] Blood lymphocytes/100 leukoc ytesOrdered By: Dr. Pena on 09-03-2022 Lymphocytes/100 WBC (Bld) 4.5 % 19-41 [facility] Blood manual differential co mment interpretation (narrative result)Ordered By: Dr. Pena on 09-03-2022 Manual differential comment Vincent (Bld) [Interp] SEE COMMENT [facility] Comment on above: LYMPHOPENIA NOTED Blood monocytes/100 leukocyt esOrdered By: Dr. Pena on 09-03-2022 Monocytes/100 WBC (Bld) 5.5 % 0-10 [facility] Blood platelet adequacy dete ction by light microscopyOrdered By: Dr. Pena on 09-03-2022 Platelets LM Ql (Bld) ADEQUATE ADEQ [facility] Blood platelet mean volumeOr dered By: Dr. Pena on 09-03-2022 Platelet mean volume (Bld) [Entitic vol] 10.5 fL 6.2-12.0 [facility] Determination of erythrocyte mean corpuscular volume (MCV)Ordered By: Dr. Pena on 09-03-2022 MCV (RBC) [Entitic vol] 90.5 fL 80-94 [facility] Hematocrit Auto (Bld) [Volum e fraction]Ordered By: Dr. Pena on 09-03-2022 Hematocrit (Bld) [Volume fraction] 47.4 % 40-54 [facility] Laboratory - Chemistry and C hemistry - challengeOrdered By: Dr. Pena on 09-03-2022 ALP [Catalytic activity/Vol] 67 U/L 45-117 [facility] ALT [Catalytic activity/Vol] 24 U/L 16-61 [facility] CO2 [Moles/Vol] 30.0 mmol/L 21.0-32.0 [facility] Globulin (S) [Mass/Vol] 3.2 g/dL 2.2-4.2 [facility] Lipase [Catalytic activity/Vol] 50 U/L 73-393 [facility] Urea nitrogen/Creatinine [Mass ratio] 9.8 mg/mg 10-20 [facility] Laboratory - Hematology and Cell countsOrdered By: Dr. Pena on 09-03-2022 Anisocytosis Ql (Bld) RARE [facility] Erythrocyte distribution width (RBC) [Entitic vol] 40.6 fL 35.1-43.9 [facility] Erythrocyte distribution width (RBC) [Ratio] 12.5 % 11.6-14.6 [facility] Immature granulocytes/100 WBC (Bld) 0.400 % 0.0-0.9 [facility] Comment on above: IG% - Immature Granu locytes (promyelocytes, myelocytes and metamyelocytes) > 1% indicates that a LEFT SHIFT is Present. MCH (RBC) [Entitic mass] 32.1 pg 27.0-32.0 [facility] Nucleated RBC/100 WBC (Bld) [Ratio] 0 % 0-5 [facility] MCHC Auto (RBC) [Mass/Vol]Or dered By: Dr. Pena on 09-03-2022 MCHC (RBC) [Mass/Vol] 35.4 g/dL 32-36 [facility] Macrocytes detectionOrdered By: Dr. Pena on 09-03-2022 Macrocytes Ql (Bld) RARE [facility] No Panel InformationOrdered By: Dr. Pena on 09-03-2022 Estimated Creatinine Clearance Calc 108.90 ml/min [facility] Estimated GFR (MDRD) Amer 138 mL/min >60 [facility] Comment on above: GFR Calc Estimated GFR (MDRD) Non-Af Amer 114 mL/min >60 [facility] Comment on above: Non- GFR Calc Ethyl Alcohol Level 5.0 mg/dL [facility] Comment on above: The serum:whole bloo d ethanol ratio is approximately 1.14and varies slightly with hematocrit. Medical Alcohol reference interval and critical value innon-tolerant individuals; 50 - 100 Impairment 100 Intoxication 100 - 250 Severe Poisoning 250 - 400 Deep/possible fatal coma Influenza Types A,B Direct FA (JESS) [facility] Platelets bldOrdered By: Dr. Pena on 09-03-2022 Platelets (Bld) [#/Vol] 151 10*3/uL 150-450 [facility] RBC morphologyOrdered By: Dr Dick Pena on 09-03-2022 RBC morphology finding Nom (Bld) N CHROM NORMAL NORM C&C [facility] Serum or plasma albumin rosalia urement (mass/volume)Ordered By: Dr. Pena on 09-03-2022 Albumin [Mass/Vol] 4.2 g/dL 3.2-5.0 [facility] Serum or plasma albumin/glob ulin mass ratioOrdered By: Dr. Pena on 09-03-2022 Albumin/Globulin [Mass ratio] 1.3 {ratio} 0.9-2.4 [facility] Serum or plasma calcium rosalia urement (mass/volume)Ordered By: Dr. Pena on 09-03-2022 Calcium [Mass/Vol] 8.8 mg/dL 8.5-10.1 [facility] Serum or plasma creatinine m easurement (mass/volume)Ordered By: Dr. Pena on 09-03-2022 Creatinine [Mass/Vol] 0.82 mg/dL 0.70-1.30 [facility] Comment on above: The validity of the calculated GFR & GFRAA in patients over 70 years has not been determined. Clinical correlation is essential. Serum or plasma urea nitroge n measurement (mass/volume)Ordered By: Dr. Pena on 09-03-2022 Urea nitrogen [Mass/Vol] 8 mg/dL 7-18 [facility] Thin prep Papanicolaou smear with manual screeningOrdered By: Dr. Pena on 09-03-2022 Thin prep Papanicolaou smear with manual screening 16 U/L 15-37 [facility] Thin prep Papanicolaou smear with manual screening 5 5-15 [facility] Basophil percentageOrdered B y: Dr. Richards on 08-20-2022 Basophil percentage 0 SEEN /hpf 0-5 [facility] Bilirubin Test strip Ql (U)O rdered By: Dr. Richards on 08-20-2022 Bilirubin Ql (U) Negative Negative [facility] Ketones Test strip Ql (U)Ord ered By: Dr. Richards on 08-20-2022 Ketones Ql (U) Negative Negative [facility] Mucus LM Ql (Urine sed)Order ed By: Dr. Richards on 08-20-2022 Mucus Ql (Urine sed) 0 SEEN /hpf [facility] Nitrite Test strip Ql (U)Ord ered By: Dr. Richards on 08-20-2022 Nitrite Ql (U) Negative Negative [facility] Protein Test strip Ql (U)Ord ered By: Dr. Richards on 08-20-2022 Protein Ql (U) Negative Negative [facility] Squamous epithelial cells de tection in urine sediment by light microscopyOrdered By: Dr. Richards on 08-20-2022 Epithelial cells.squamous LM Ql (Urine sed) 0 SEEN /hpf 0-5 [facility] Urine blood detectionOrdered By: Dr. Richards on 08-20-2022 RBC Ql (U) Negative Negative [facility] RBC Ql (U) 0 SEEN /hpf 0-5 [facility] Urine clarityOrdered By: Dr. Richards on 08-20-2022 Clarity (U) Clear Clear [facility] Urine color determinationOrd ered By: Dr. Richards on 08-20-2022 Color (U) Straw Yellow [facility] Urine glucose detectionOrder ed By: Dr. Richards on 08-20-2022 Glucose Ql (U) Normal mg/dl Normal [facility] Urine leukocyte esterase det ection by dipstickOrdered By: Dr. Richards on 08-20-2022 Leukocyte esterase Test strip Ql (U) Negative Negative [facility] Urine pHOrdered By: Dr. Kapil cha on 08-20-2022 pH (U) 7.0 [pH] 5.0 - 8.0 [facility] Urine sediment bacteria coun t by microscopy (number/high power field)Ordered By: Dr. Richards on 08-20-2022 Bacteria LM.HPF (Urine sed) [#/Area] 0 /[HPF] None Seen [facility] Urine specific gravity measu rementOrdered By: Dr. Richadrs on 08-20-2022 Specific gravity (U) [Rel density] 1.010 1.002-1.030 [facility] Urobilinogen Auto test strip Ql (U)Ordered By: Dr. Richards on 08-20-2022 Urobilinogen Ql (U) Normal mg/dl Normal [facility] Absolute lymphocyte counton 07-30-2022 Lymphocytes Auto (Unsp spec) [#/Vol] 0.88 10*3/uL 0.83-4.51 [facility] Work Phone: Basophil percentageon 2021 Basophils/100 WBC (Bld) 0.1 % 0-1 [facility] Work Phone: Bilirubin [Mass/Vol] 1.70 mg/dL 0.20-1.00 [facility] Work Phone: Comment on above: For patients on eltr ombopag therapy, use of Dimension [place] TBIL is not recommended. Chloride [Moles/Vol] 106 mmol/L 98-107 [facility] Work Phone: Eosinophils/100 WBC (Bld) 0.1 % 0-5 [facility] Work Phone: [phone] Glucose [Mass/Vol] 109 mg/dL 74-106 [facility] Work Phone: Comment on above: Fasting Glucose resu lt from 100 to 125 mg/dL suggests IMPAIRED HOMEOSTASIS per A.D.A. criteria. Neutrophils (Bld) [#/Vol] 5.1 10*3/uL 2.0-7.7 [facility] Work Phone: Neutrophils/100 WBC (Bld) 75.1 % 47-70 [facility] Work Phone: Potassium [Moles/Vol] 3.8 mmol/L 3.5-5.1 [facility] Work Phone: Protein [Mass/Vol] 7.4 g/dL 6.4-8.2 [facility] Work Phone: Sodium [Moles/Vol] 137 mmol/L 136-145 [facility] Work Phone: WBC (Bld) [#/Vol] 6.8 10*3/uL 4.4-11.0 [facility] Work Phone: Blood erythrocytes count (nu mber/volume)on 07-30-2022 RBC (Bld) [#/Vol] 4.96 10*6/uL 4.6-6.2 [facility] Work Phone: Blood hemoglobin measurement (mass/volume)on 07-30-2022 Hemoglobin (Bld) [Mass/Vol] 16.2 g/dL 13.0-16. 5 [facility] Work Phone: Blood lymphocytes/100 leukoc yteson 07-30-2022 Lymphocytes/100 WBC (Bld) 12.9 % 19-41 [facility] Work Phone: Blood monocytes/100 leukocyt eson 07-30-2022 Monocytes/100 WBC (Bld) 11.4 % 0-10 [facility] Work Phone: Blood platelet mean volumeon 07-30-2022 Platelet mean volume (Bld) [Entitic vol] 10.2 fL 6.2-12.0 [facility] Work Phone: Determination of erythrocyte mean corpuscular volume (MCV)on 07-30-2022 MCV (RBC) [Entitic vol] 87.7 fL 80-94 [facility] Work Phone: Hematocrit Auto (Bld) [Volum e fraction]on 07-30-2022 Hematocrit (Bld) [Volume fraction] 43.5 % 40-54 [facility] Work Phone: Laboratory - Chemistry and C hemistry - challengeon 07-30-2022 ALP [Catalytic activity/Vol] 66 U/L 45-117 [facility] Work Phone: ALT [Catalytic activity/Vol] 22 U/L 16-61 [facility] Work Phone: CO2 [Moles/Vol] 26.0 mmol/L 21.0-32.0 [facility] Work Phone: Globulin (S) [Mass/Vol] 3.3 g/dL 2.2-4.2 [facility] Work Phone: Lipase [Catalytic activity/Vol] 54 U/L 73-393 [facility] Work Phone: Urea nitrogen/Creatinine [Mass ratio] 9.2 mg/mg 10-20 [facility] Work Phone: Laboratory - Hematology and Cell countson 07-30-2022 Erythrocyte distribution width (RBC) [Entitic vol] 37.7 fL 35.1-43.9 [facility] Work Phone: Erythrocyte distribution width (RBC) [Ratio] 11.8 % 11.6-14.6 [facility] Work Phone: [phone] Immature granulocytes/100 WBC (Bld) 0.400 % 0.0-0.9 [facility] Work Phone: [phone] Comment on above: IG% - Immature Granu locytes (promyelocytes, myelocytes and metamyelocytes) > 1% indicates that a LEFT SHIFT is Present. MCH (RBC) [Entitic mass] 32.7 pg 27.0-32.0 [facility] Work Phone: [phone] Nucleated RBC/100 WBC (Bld) [Ratio] 0 % 0-5 [facility] Work Phone: [phone] MCHC Auto (RBC) [Mass/Vol]on 07-30-2022 MCHC (RBC) [Mass/Vol] 37.2 g/dL 32-36 [facility] Work Phone: No Panel Informationon 07-30 Estimated Creatinine Clearance Calc 82.55 ml/min [facility] Work Phone: [phone] Estimated GFR (MDRD) Amer 99 mL/min >60 [facility] Work Phone: [phone] Comment on above: GFR Calc Estimated GFR (MDRD) Non-Af Amer 82 mL/min >60 [facility] Work Phone: [phone] Comment on above: Non- GFR Calc Platelets bldon 07-30-2022 Platelets (Bld) [#/Vol] 166 10*3/uL 150-450 [facility] Work Phone: [phone] Serum or plasma albumin rosalia urement (mass/volume)on 07-30-2022 Albumin [Mass/Vol] 4.1 g/dL 3.2-5.0 [facility] Work Phone: [phone] Serum or plasma albumin/glob ulin mass ratioon 07-30-2022 Albumin/Globulin [Mass ratio] 1.2 {ratio} 0.9-2.4 [facility] Work Phone: [phone] Serum or plasma calcium rosalia urement (mass/volume)on 07-30-2022 Calcium [Mass/Vol] 9.1 mg/dL 8.5-10.1 [facility] Work Phone: Serum or plasma creatinine m easurement (mass/volume)on 07-30-2022 Creatinine [Mass/Vol] 1.09 mg/dL 0.70-1.30 [facility] Work Phone: Comment on above: The validity of the calculated GFR & GFRAA in patients over 70 years has not been determined. Clinical correlation is essential. Serum or plasma urea nitroge n measurement (mass/volume)on 07-30-2022 Urea nitrogen [Mass/Vol] 10 mg/dL 7-18 [facility] Work Phone: Thin prep Papanicolaou smear with manual screeningon 07-30-2022 Thin prep Papanicolaou smear with manual screening 24 U/L 15-37 [facility] Work Phone: Thin prep Papanicolaou smear with manual screening 5 5-15 [facility] Work Phone: Absolute lymphocyte counton 07-29-2022 Lymphocytes Auto (Unsp spec) [#/Vol] 0.96 10*3/uL 0.83-4.51 [facility] Work Phone: Basophil percentageon 2021 Basophils/100 WBC (Bld) 0.3 % 0-1 [facility] Work Phone: Bilirubin [Mass/Vol] 1.60 mg/dL 0.20-1.00 [facility] Work Phone: Comment on above: For patients on eltr ombopag therapy, use of Dimension [place] TBIL is not recommended. Chloride [Moles/Vol] 111 mmol/L 98-107 [facility] Work Phone: Eosinophils/100 WBC (Bld) 0.2 % 0-5 [facility] Work Phone: Glucose [Mass/Vol] 92 mg/dL 74-106 [facility] Work Phone: Neutrophils (Bld) [#/Vol] 10.1 10*3/uL 2.0-7.7 [facility] Work Phone: Neutrophils/100 WBC (Bld) 83.7 % 47-70 [facility] Work Phone: Potassium [Moles/Vol] 3.8 mmol/L 3.5-5.1 [facility] Work Phone: Protein [Mass/Vol] 7.7 g/dL 6.4-8.2 [facility] Work Phone: [phone] Sodium [Moles/Vol] 142 mmol/L 136-145 [facility] Work Phone: WBC (Bld) [#/Vol] 12.1 10*3/uL 4.4-11.0 [facility] Work Phone: [phone] Blood erythrocytes count (nu mber/volume)on 07-29-2022 RBC (Bld) [#/Vol] 5.05 10*6/uL 4.6-6.2 [facility] Work Phone: Blood hemoglobin measurement (mass/volume)on 07-29-2022 Hemoglobin (Bld) [Mass/Vol] 16.6 g/dL 13.0-16. 5 [facility] Work Phone: Blood lymphocytes/100 leukoc yteson 07-29-2022 Lymphocytes/100 WBC (Bld) 7.9 % 19-41 [facility] Work Phone: [phone] Blood monocytes/100 leukocyt eson 07-29-2022 Monocytes/100 WBC (Bld) 7.4 % 0-10 [facility] Work Phone: Blood platelet mean volumeon 07-29-2022 Platelet mean volume (Bld) [Entitic vol] 10.0 fL 6.2-12.0 [facility] Work Phone: Determination of erythrocyte mean corpuscular volume (MCV)on 07-29-2022 MCV (RBC) [Entitic vol] 88.1 fL 80-94 [facility] Work Phone: Hematocrit Auto (Bld) [Volum e fraction]on 10-26-2022 Hematocrit (Bld) [Volume fraction] 44.5 % 40-54 [facility] Work Phone: Laboratory - Chemistry and C hemistry - challengeon 07-29-2022 ALP [Catalytic activity/Vol] 70 U/L 45-117 [facility] Work Phone: ALT [Catalytic activity/Vol] 26 U/L 16-61 [facility] Work Phone: CO2 [Moles/Vol] 24.0 mmol/L 21.0-32.0 [facility] Work Phone: Globulin (S) [Mass/Vol] 3.3 g/dL 2.2-4.2 [facility] Work Phone: Lipase [Catalytic activity/Vol] 73 U/L 73-393 [facility] Work Phone: Urea nitrogen/Creatinine [Mass ratio] 6.3 mg/mg 10-20 [facility] Work Phone: Laboratory - Hematology and Cell countson 07-29-2022 Erythrocyte distribution width (RBC) [Entitic vol] 37.4 fL 35.1-43.9 [facility] Work Phone: Erythrocyte distribution width (RBC) [Ratio] 11.8 % 11.6-14.6 [facility] Work Phone: Immature granulocytes/100 WBC (Bld) 0.500 % 0.0-0.9 [facility] Work Phone: Comment on above: IG% - Immature Granu locytes (promyelocytes, myelocytes and metamyelocytes) > 1% indicates that a LEFT SHIFT is Present. MCH (RBC) [Entitic mass] 32.9 pg 27.0-32.0 [facility] Work Phone: Nucleated RBC/100 WBC (Bld) [Ratio] 0 % 0-5 [facility] Work Phone: MCHC Auto (RBC) [Mass/Vol]on 07-29-2022 MCHC (RBC) [Mass/Vol] 37.3 g/dL 32-36 [facility] Work Phone: No Panel Informationon 07-29 Estimated Creatinine Clearance Calc 91.48 ml/min [facility] Work Phone: Estimated GFR (MDRD) Amer 117 mL/min >60 [facility] Work Phone: Comment on above: GFR Calc Estimated GFR (MDRD) Non-Af Amer 96 mL/min >60 [facility] Work Phone: Comment on above: Non- GFR Calc Platelets bldon 07-29-2022 Platelets (Bld) [#/Vol] 176 10*3/uL 150-450 [facility] Work Phone: Serum or plasma albumin rosalia urement (mass/volume)on 07-29-2022 Albumin [Mass/Vol] 4.4 g/dL 3.2-5.0 [facility] Work Phone: Serum or plasma albumin/glob ulin mass ratioon 07-29-2022 Albumin/Globulin [Mass ratio] 1.3 {ratio} 0.9-2.4 [facility] Work Phone: Serum or plasma calcium rosalia urement (mass/volume)on 07-29-2022 Calcium [Mass/Vol] 9.1 mg/dL 8.5-10.1 [facility] Work Phone: Serum or plasma creatinine m easurement (mass/volume)on 07-29-2022 Creatinine [Mass/Vol] 0.94 mg/dL 0.70-1.30 [facility] Work Phone: Comment on above: The validity of the calculated GFR & GFRAA in patients over 70 years has not been determined. Clinical correlation is essential. Serum or plasma urea nitroge n measurement (mass/volume)on 07-29-2022 Urea nitrogen [Mass/Vol] 6 mg/dL 7-18 [facility] Work Phone: Thin prep Papanicolaou smear with manual screeningon 07-29-2022 Thin prep Papanicolaou smear with manual screening 23 U/L 15-37 [facility] Work Phone: Thin prep Papanicolaou smear with manual screening 7 5-15 [facility] Work Phone: CULTURE URINEon 05-04-2022 CULTURE URINE CULTURE URINE --> Status: F No growth (<1,000 CFU/ml). Normal [facility] Comment on above: Performed By: #### C /UR ####[facility] [place] [address] Chlamydia and GC PCR Panelon 05-03-2022 Chlamydia and GC PCR Panel Chlamydia trachomatis PCR --> Status: F NOT Detected Chlamydia trachomatis Nucleic Acid NOT Detected by DNA Amplification using the Cepurturnid System. Culture is the only recommended test [...] as suspected child abuse or molestation. Normal [facility] Comment on above: Performed By: #### C TNGP ####[address] [place] [address] Complete Urinalysison 2021 Bacteria Few (1-5) Abnormal Negative [facility] Comment on above: Result Comment: . Performed By: #### C UA2 #### [facility] [address] [place] [address] RBC, Urine 11 - 25 Abnormal 0-2 [facility] Comment on above: Result Comment: . Performed By: #### C UA2 #### [facility] [address] [place] [address] Squamous Epithelial 3 - 5 Normal 3-5 [facility] Comment on above: Result Comment: . Performed By: #### C UA2 #### [facility] [address] [place] [address] VOLUME, URINE 12 ml Normal [facility] Comment on above: Result Comment: . Performed By: #### C UA2 #### [facility] [address] [place] [address] WBC, Urine 51 - 100 Abnormal 0-5 [facility] Comment on above: Result Comment: . Performed By: #### C UA2 #### [facility] [address] [place] [address] Appearance (U) Turbid Abnormal Clear [facility] Comment on above: Result Comment: . Performed By: #### C UA2 #### [facility] [address] [place] [address] Bilirubin,Urine Negative Normal Negative [facility] Comment on above: Result Comment: . Performed By: #### C UA2 #### [facility] [address] [place] [address] Color (U) LIGHT BROWN Abnormal Lt. Yellow [facility] Comment on above: Result Comment: . Performed By: #### C UA2 #### [facility] [address] [place] [address] Glucose Ql (U) Normal Normal Normal (<70) [facility] Comment on above: Result Comment: . Performed By: #### C UA2 #### [facility] [address] [place] [address] Ketone,Urine Negative Normal Negative [facility] Comment on above: Result Comment: . Performed By: #### C UA2 #### [facility] [address] [place] [address] Leukocytes,Urine 500 Analy/uL Abnormal Negative [facility] Comment on above: Result Comment: . Performed By: #### C UA2 #### [facility] [address] [place] [address] Nitrites,Urine Negative Normal Negative [facility] Comment on above: Result Comment: . Performed By: #### C UA2 #### [facility] [address] [place] [address] Occult Blood,Urine > 1.0 Abnormal Negative [facility] Comment on above: Result Comment: . Performed By: #### C UA2 #### [facility] [address] [place] [address] pH,Urine 6.0 Normal 5.0-8.0 [facility] Comment on above: Result Comment: . Performed By: #### C UA2 #### [facility] [address] [place] [address] Protein (U) [Mass/Vol] 70 mg/dL Abnormal Negative [facility] Comment on above: Result Comment: . Performed By: #### C UA2 #### [facility] [address] [place] [address] Specific [place],Urine < 1.005 Abnormal 1.005 - 1.030 [facility] Comment on above: Result Comment: . Performed By: #### C UA2 #### [facility] [address] [place] [address] Urobilinogen,Urine Normal Normal Normal (0-1) [facility] Comment on above: Result Comment: . Performed By: #### C UA2 #### [facility] [facility] [address] [place] [address] Urinalysison 05-02-2022 Appearance (U) Turbid Abnormal Clear [...] /[HPF] [facility] Comment on above: . Specific Warnock, Urine Abnormal S [facility] Comment on above: . Squam Epithel, UA 3-5 3 - 5 /[HPF] [facility] Comment on above: . Urobilinogen, Urine Normal Normal (0-1) mg/dL [facility] Comment on above: . Volume 12 ml [facility] Comment on above: . WBC, UA /[HPF] Abnormal 0 - 5 /[HPF] [facility] Comment on above: . Test Per[facility] by [facility], [address] , [place], [place] [id number] [place] [address] LAB [facility] CULTURE URINEon 03-31-2022 CULTURE URINE CULTURE URINE --> Status: F Insignificant growth based on current clinical guidelines. Normal [facility] Comment on above: Performed By: #### C /UR ####[facility] [address] [place] [address] CBC with Auto Differentialon 03-28-2022 Absolute Baso [...] [Mass/Vol] 15.4 g/dL 13.0 - 18.0 g/dL [facility] Interpretation and review of laboratory results [...] [#/Vol] 6.9 10*3/uL 3.6 - 10.7 10*3/uL [facility] Test Performed by [facility], [address] [place] [address] Junior. , [address] LAB [facility] CT Abdomen and Pelvis W cont rast Kristen 03-28-2022 Patient Name: GILBERTO JOHNSON Computed Tomography ACCESSION EXAM DATE/TIME PROCEDURE ORDERING PROVIDER [id number] 03/28/2022 15:[address] Abdomen/Pelvis w/ IV MD ULICES, PEYTON Beltran Contrast (IV Onl CPT code 68161 Q9967 Reason For Exam (CT Abdomen/Pelvis w/ [...] JEFFREY Transcribed Date and Time: 03/28/2022 3:43 [facility] Liam Mcdonough MD - 03/28/2022 Patient Name: GILBERTO JOHNSON Computed Tomography ACCESSION EXAM DATE/TIME PROCEDURE ORDERING PROVIDER [id number] 03/28/2022 15:[address] Abdomen/Pelvis w/ IV MD ELENA DOUGALAS R. Contrast (IV Onl CPT code 16078 Q9967 Reason For Exam (CT Abdomen/Pelvis w/ [...] Tomography ACCESSION EXAM DATE/TIME PROCEDURE ORDERING PROVIDER [id number] 03/28/2022 15:[address] Abdomen/Pelvis w/ IV MD ELENA DOUGALAS R. Contrast (IV Onl CPT code 21959 [id number] Reason For Exam (CT Abdomen/Pelvis w/ [...] Transcribed Date and Time: 03/28/2022 3:43 Normal [facility] Comp Metabolic Panelon 03-28 ALP [Catalytic activity/Vol] 55 U/L Normal 38-126 [facility] Comment on above: Performed By: #### H EMDF LIPA4, CMP3 ####[facility] [facility] [address] ALT [Catalytic activity/Vol] 14 U/L Normal 0-49 [facility] Comment on above: Result Comment: The ALT test is performed by an updated assay method. Please note that the reference intervals have been changed and are now sex specific. Performed By: #### H EMDF, LIPA4, CMP3 ####[address] [place] [address] Calcium [Mass/Vol] 9.4 mg/dL Normal 8.4-10.4 [facility] Comment on above: Performed By: #### H EMDF, LIPA4, CMP3 ####[address] [place] [address] Glucose [Mass/Vol] 87 mg/dL Normal 70-100 [facility] Comment on above: Performed By: #### H EMDF, LIPA4, CMP3 ####[facility] [place] [address] Protein [Mass/Vol] 7.6 g/dL Normal 6.3-8.2 [facility] Comment on above: Performed By: #### H EMDF, LIPA4, CMP3 ####[facility] [place] [address] Urea nitrogen [Mass/Vol] 7 mg/dL Normal 7-17 [facility] Comment on above: Performed By: #### H EMDF, LIPA4, CMP3 ####[facility] [place] [address] Anion gap [Moles/Vol] 7 mmol/L Normal 3-13 [facility] Comment on above: Performed By: #### H EMDF, LIPA4, CMP3 ####[facility] [place] [address] AST [Catalytic activity/Vol] 35 U/L Normal 15-46 [facility] Comment on above: Performed By: #### H EMDF, LIPA4, CMP3 ####[facility] [place] [address] Bilirubin [Mass/Vol] 1.5 mg/dL High 0.2-1.3 [facility] Comment on above: Performed By: #### H EMDF, LIPA4, CMP3 ####[facility] [place] [address] CO2 [Moles/Vol] 32 mmol/L High 22-30 [facility] Comment on above: Performed By: #### H EMDF, LIPA4, CMP3 ####[facility] [place] [address] Creatinine [Mass/Vol] 0.84 mg/dL Normal 0.52-1.25 [facility] Comment on above: Performed By: #### H EMDF, LIPA4, CMP3 ####[facility] [place] [address] eGFR OTHER > 90.0 Normal >60 [facility] Comment on above: Result Comment: KDIG O [...] tubular creatinine secretion. Performed By: #### H EMDF, LIPA4, CMP3 ####[facility] [place] [address] GFR/1.73 sq M.predicted among blacks MDRD (S/P/Bld) [Vol rate/Area] mL/min/{1.73_m2} Normal >60 [facility] Comment on above: Performed By: #### H EMDF, LIPA4, CMP3 ####[facility] [place] [address] Potassium [Moles/Vol] 3.5 mmol/L Normal 3.5-5.1 [facility] Comment on above: Performed By: #### H EMDF, LIPA4, CMP3 ####[facility] [place] [address] Sodium [Moles/Vol] 140 mmol/L Normal 135-145 [facility] Comment on above: Performed By: #### H EMDF, LIPA4, CMP3 ####[facility] [place] [address] Albumin [Mass/Vol] 4.5 g/dL Normal 3.5-5.0 [facility] Comment on above: Performed By: #### H EMDF, LIPA4, CMP3 ####[facility] [place] [address] Chloride [Moles/Vol] 101 mmol/L Normal 98-107 [facility] Comment on above: Performed By: #### H EMDF, LIPA4, CMP3 ####[facility] [place] [address] Complete Urinalysison 2021 Appearance (U) Clear Normal Clear [facility] Comment on above: Result Comment: . Performed By: #### C UA2 #### [facility] [address] [place] [address] Bilirubin,Urine Negative Normal Negative [facility] [place] [facility] Comment on above: Result Comment: . Performed By: #### C UA2 #### [facility] [address] [place] [address] Color (U) COLORLESS Normal Lt. Yellow [facility] Comment on above: Result Comment: . Performed By: #### C UA2 #### [facility] [address] [place] [address] Glucose Ql (U) Normal Normal Normal (<70) [facility] Comment on above: Result Comment: . Performed By: #### C UA2 #### [facility] [address] [place] [address] Ketone,Urine Negative Normal Negative [facility] Comment on above: Result Comment: . Performed By: #### C UA2 #### [facility] [address] [place] [address] Leukocytes,Urine Negative Normal Negative [facility] Comment on above: Result Comment: . Performed By: #### C UA2 #### [facility] [address] [place] [address] Nitrites,Urine Negative Normal Negative [facility] Comment on above: Result Comment: . Performed By: #### C UA2 #### [facility] [address] [place] [address] Occult Blood,Urine Negative Normal Negative [facility] Comment on above: Result Comment: . Performed By: #### C UA2 #### [facility] [address] [place] [address] pH,Urine 7.5 Normal 5.0-8.0 [facility] Comment on above: Result Comment: . Performed By: #### C UA2 #### [facility] [address] [place] [address] Specific Warnock,Urine < 1.005 Abnormal 1.005 - 1.030 [facility] Comment on above: Result Comment: . Performed By: #### C UA2 #### [facility] [address] [place] [address] Total Protein,Urine Negative Normal Negative [facility] Comment on above: Result Comment: . Performed By: #### C UA2 #### [facility] [address] [address] Urobilinogen,Urine Normal Normal Normal (0-1) [facility] Comment on above: Result Comment: . Performed By: #### C UA2 #### [facility] [address] [address] Comprehensive Metabolic [facility] 03-28-2022 Albumin [Mass/Vol] 4.5 g/dL 3.5 - 5.0 g/dL [facility] ALP (Bld) [Catalytic activity/Vol] 55 U/L 38 - 126 U/L [facility] ALT [Catalytic activity/Vol] 14 U/L 0 - 49 U/L [facility] Comment on above: The ALT test is [...] - 1.25 mg/dL [facility] EGFR IF NonAfrican Swazi >90.0 >60 mL/m in [facility] Comment on above: KDIGO guidelines pro vide [...] [Mass/Vol] 87 mg/dL 70 - 100 mg/dL [facility] Interpretation and review of laboratory results [facility]normal [facility] Potassium [Moles/Vol] 3.5 mmol/L 3.5 - 5.1 mmol/L [facility] Sodium [Moles/Vol] 140 mmol/L 135 - 145 mmol/L [facility] Urea nitrogen (BldV) [Mass/Vol] 7 mg/dL 7 - 17 mg/dL [facility] Hemogram w/ Autodiffon 03-28 Abs Baso Cnt 0.0 10*3/uL Normal 0.0-0.2 [facility] Comment on above: Performed By: #### H VETO BATRES, CMP3 #### [facility] [address] [place] [address] Abs Neutrophile Cnt 5.1 10*3/uL Normal 1.8-7.0 [facility] Comment on above: Performed By: #### H VETO BATRES, CMP3 #### [facility] [address] [place] [address] Basophils/100 WBC (Bld) 0.3 % Normal 0.0-2.0 [facility] Comment on above: Performed By: #### H GISEL LIPA4, CMP3 #### [facility] [address] [place] [address] Eosinophils (Bld) [#/Vol] 0.0 10*3/uL Normal 0.0-0.5 [facility] Comment on above: Performed By: #### H EMDF, LIPA4, CMP3 #### [facility] [address] [place] [address] Eosinophils/100 WBC (Bld) 0.3 % Low 1.0-6.0 [facility] Comment on above: Performed By: #### H EMDF, LIPA4, CMP3 #### [facility] [address] [place] [address] Erythrocyte distribution width (RBC) [Ratio] 11.8 % Normal 11.5-14.5 [facility] Comment on above: Performed By: #### H EMDF, LIPA4, CMP3 #### [facility] [address] [place] [address] Granulocytes/100 WBC (Bld) 73.8 % Normal 40.0-80.0 [facility] Comment on above: Performed By: #### H EMDF, LIPA4, CMP3 #### [facility] [address] [place] [address] Hematocrit (Bld) [Volume fraction] 42.4 % Normal 40.0-52.0 [facility] Comment on above: Performed By: #### H EMDF, LIPA4, CMP3 #### [facility] [address] [place] [address] Hemoglobin (Bld) [Mass/Vol] 15.4 g/dL Normal 13.0-18. 0 [facility] Comment on above: Performed By: #### H EMDF, LIPA4, CMP3 #### [facility] [address] [place] [address] Lymphocytes (Bld) [#/Vol] 1.3 10*3/uL Normal 1.0-4.3 [facility] Comment on above: Performed By: #### H EMDF, LIPA4, CMP3 #### [facility] [address] [place] [address] Lymphocytes/100 WBC (Bld) 18.2 % Low 20.0-40.0 [facility] Comment on above: Performed By: #### H EMDF, LIPA4, CMP3 #### [facility] [address] [place] [address] MCH (RBC) [Entitic mass] 32.5 pg Normal 26.0-34.0 [facility] Comment on above: Performed By: #### H EMDF, LIPA4, CMP3 #### [facility] [address] [place] [address] MCHC 36.3 % High 32.0-36.0 [facility] Comment on above: Performed By: #### H EMDF, LIPA4, CMP3 #### [facility] [address] [place] [address] MCV (RBC) [Entitic vol] 89.5 fL Normal 80.0-98.0 [facility] Comment on above: Performed By: #### H EMDF, LIPA4, CMP3 #### [facility] [address] [place] [address] Monocytes (Bld) [#/Vol] 0.5 10*3/uL Normal 0.0-0.8 [facility] Comment on above: Performed By: #### H EMDF, LIPA4, CMP3 #### [facility] [address] [place] [address] Monocytes/100 WBC (Bld) 7.1 % Normal 2.0-10.0 [facility] Comment on above: Performed By: #### H EMDF, LIPA4, CMP3 #### [facility] [address] [place] [address] Platelet mean volume (Bld) [Entitic vol] 10.1 fL Normal 7.4-12.4 [facility] Comment on above: Result Comment: MPV is a calculated measurement using platelet volume ratio. Performed By: #### H EMDF, LIPA4, CMP3 #### [facility] [address] [place] [address] Platelets (Bld) [#/Vol] 165 10*3/uL Normal 140-440 [facility] Comment on above: Performed By: #### H EMDF, LIPA4, CMP3 #### [facility] [address] [place] [address] RBC (Bld) [#/Vol] 4.74 10*6/uL Normal 4.40-5.90 [facility] Comment on above: Performed By: #### H EMDF, LIPA4, CMP3 #### [facility] [address] [place] [address] WBC (Bld) [#/Vol] 6.9 10*3/uL Normal 3.6-10.7 [facility] Comment on above: Performed By: #### H EMDF, LIPA4, CMP3 #### [facility] [address] [place] [address] Lipaseon 03-28-2022 Lipase [Catalytic activity/Vol] 44 U/L Normal 23-300 [facility] Comment on above: Performed By: #### H EMDF, LIPA4, CMP3 ####[facility] [place] [address] Lipase [Catalytic activity/Vol] 44 U/L 23 - 300 U/L [facility] No Panel Informationon 03-28 Test Performed by [facility], [address] , [place], [place] [id number] [place] [address] [facility] 03-28-2022 Appearance (U) Clear Clear NA [facility] Comment on above: . Bilirubin Urine Negative Negative mg/dL [facility] Comment on above: . Color (U) COLORLESS Lt. Yellow NA [facility] Comment on above: . Glucose, Ur Normal Normal (<70) mg/dL [facility] Comment on above: . Interpretation and review of laboratory results Abnormal [facility] Ketones Ql (U) Negative Negative mg/dL [facility] Comment on above: . LEUKOCYTES, UA Negative Negative Analy/uL [facility] Comment on above: . Nitrite, Urine Negative Negative NA [facility] Comment on above: . Occult Blood,Urine Negative Negative mg/dL [facility] Comment on above: . pH (U) 7.5 [pH] [facility] Comment on above: . Specific Warnock, Urine <1.005 Abnormal S [facility] Comment on above: . Total Protein, Urine Negative Negativ e mg/dL [facility] Comment on above: . Urobilinogen, Urine Normal Normal (0-1) mg/dL [facility] Comment on above: . Test Performed by [facility], [address] , [address] LAB [facility] UA DIP, URINE (POC)on 2021 BILIRUBIN UA (POCT) Negative Negative [facility] CLARITY UA (POCT) Clear [facility] COLOR UA (POCT) Yellow [facility] GLUCOSE UA (POCT) Negative Negative mg/dL [facility] HEMOGLOBIN/BLOOD UA (POCT) Trace-lysed Abnormal Negative [facility] KETONE UA (POCT) Negative Negative mg/dL [facility] LEUKOCYTES UA (POCT) Negative Negative [facility] NITRITE UA (POCT) Negative Negative [facility] PH UA (POCT) 7.5 4.5 - 8.0 [facility] Protein Ql (U) Negative Negative mg/dL [facility] SPECIFIC GRAVITY UA (POCT) 1.015 1 .005 - 1.030 [facility] UROBILINOGEN UA (POCT) 0.2 E.U./dL Martha l E.U./dL [facility] Chlamydia and GC PCR Panelon 03-24-2022 [...] as suspected child abuse or molestation. Normal [facility] Comment on above: Performed By: #### C UA2 #### [facility] [address] [place] [address] #### CTNGP #### [address] [place] [address] Complete Urinalysison 2021 Appearance (U) Clear Normal Clear [facility] Comment on above: Result Comment: . Performed By: #### C UA2 #### [facility] [address] [place] [address] #### CTNGP #### [address] [place] [address] Bilirubin,Urine Negative Normal Negative [facility] [place] [facility] Comment on above: Result Comment: . Performed By: #### C UA2 #### [address] [address] #### CTNGP #### [address] Color (U) COLORLESS Normal Lt. Yellow [facility] Comment on above: Result Comment: . Performed By: #### C UA2 #### [address] [place] [address] #### CTNGP #### [address] [place], [place] Glucose Ql (U) Normal Normal Normal (<70) [facility] Comment on above: Result Comment: . Performed By: #### C UA2 #### [facility] [address] [place] [address] #### CTNGP #### [address] [place] [address] Ketone,Urine Negative Normal Negative [facility] Comment on above: Result Comment: . Performed By: #### C UA2 #### [facility] [address] [place] [address] #### CTNGP #### [address] [place] [address] Leukocytes,Urine Negative Normal Negative [facility] Comment on above: Result Comment: . Performed By: #### C UA2 #### [facility] [address] [place] [address] #### CTNGP #### [address] [place] [address] Nitrites,Urine Negative Normal Negative [facility] Comment on above: Result Comment: . Performed By: #### C UA2 #### [address] [address] #### CTNGP #### [address] [place] [address] Occult Blood,Urine Negative Normal Negative [facility] Comment on above: Result Comment: . Performed By: #### C UA2 #### [address] [address] #### CTNGP #### [address] [place] [address] pH,Urine 7.5 Normal 5.0-8.0 [facility] Comment on above: Result Comment: . Performed By: #### C UA2 #### [address] [place] [address] #### CTNGP #### [address] [place] [address] Specific Warnock,Urine < 1.005 Abnormal 1.005 - 1.030 [facility] Comment on above: Result Comment: . Performed By: #### C UA2 #### [address] [place] [address] #### CTNGP #### [address] [place] [address] Total Protein,Urine Negative Normal Negative [facility] Comment on above: Result Comment: . Performed By: #### C UA2 #### [address] [place] [address] #### CTNGP #### [address] [place] [address] Urobilinogen,Urine Normal Normal Normal (0-1) [facility] Comment on above: Result Comment: . Performed By: #### C UA2 #### [employer] [address] [place] [address] #### CTNGP #### [facility] [address] [place] [address] UrinalysisOrdered By: Fausto Caruso on 03-23-2022 Appearance (U) Clear Clear NA [employer] Work Phone: Comment on above: . Bilirubin Urine Negative Negative mg/dL [employer] Work Phone: Comment on above: . Color (U) COLORLESS Lt. Yellow NA [employer] Work Phone: Comment on above: . Glucose, Ur Normal Normal (<70) mg/dL [employer] Work Phone: Comment on above: . Interpretation and review of laboratory results Abnormal [employer] Work Phone: Ketones Ql (U) Negative Negative mg/dL [employer] Work Phone: Comment on above: . LEUKOCYTES, UA Negative Negative Analy/uL [employer] Work Phone: Comment on above: . Nitrite, Urine Negative Negative NA [employer] Work Phone: Comment on above: . Occult Blood,Urine Negative Negative mg/dL [employer] Work Phone: Comment on above: . pH (U) 7.5 [pH] [employer] Work Phone: Comment on above: . Specific Warnock, Urine <1.005 Abnormal S [facility] Work Phone: Comment on above: . Total Protein, Urine Negative Negativ e mg/dL [employer] Work Phone: Comment on above: . Urobilinogen, Urine Normal Normal (0-1) mg/dL [employer] Work Phone: Comment on above: . [employer] Work Phone: Urinalysison 03-23-2022 Test Performed by [employer], [address] , [place], [place] [id number] [place] [address] LAB Chlamydia and GC PCR Panelon 03-18-2022 Chlamydia and GC PCR Panel Chlamydia trachomatis PCR --> Status: F NOT Detected Chlamydia trachomatis Nucleic Acid NOT Detected by DNA Amplification using the [employer]. Culture is the only recommended test in medical-legal cases such as suspected child abuse or molestation. Chlamydia trachomatis Nucleic Acid NOT Detected by DNA Amplification using the [employer] [facility]. Culture is the only recommended test [...] NOT Detected by DNA Amplification using the [employer]. Culture is the only recommended test in medical-legal cases such as suspected child abuse or molestation. Normal [facility] Comment on above: Performed By: #### C TNGP ####[facility] [place] [address] Complete Urinalysison 2021 Appearance (U) Clear Normal Clear [facility] Comment on above: Result Comment: . Performed By: #### C UA2 #### [facility] [address] [place] [address] Bilirubin,Urine Negative Normal Negative [facility] [place] [facility] Comment on above: Result Comment: . Performed By: #### C UA2 #### [facility] [address] [place] [address] Color (U) LIGHT YELLOW Normal Lt. Yellow [facility] Comment on above: Result Comment: . Performed By: #### C UA2 #### [facility] [address] [place] [address] Glucose Ql (U) Normal Normal Normal (<70) [facility] Comment on above: Result Comment: . Performed By: #### C UA2 #### [facility] [address] [place] [address] Ketone,Urine Negative Normal Negative [facility] Comment on above: Result Comment: . Performed By: #### C UA2 #### [facility] [address] [place] [address] Leukocytes,Urine Negative Normal Negative [facility] Comment on above: Result Comment: . Performed By: #### C UA2 #### [facility] [address] [place] [address] Nitrites,Urine Negative Normal Negative [facility] Comment on above: Result Comment: . Performed By: #### C UA2 #### [facility] [address] [place] [address] Occult Blood,Urine Negative Normal Negative [facility] Comment on above: Result Comment: . Performed By: #### C UA2 #### [facility] [address] [place] [address] pH,Urine 6.0 Normal 5.0-8.0 [facility] Comment on above: Result Comment: . Performed By: #### C UA2 #### [facility] [address] [place] [address] Specific Warnock,Urine 1.009 Normal 1.005 - 1.030 [facility] Comment on above: Result Comment: . Performed By: #### C UA2 #### [facility] [address] [place] [address] Total Protein,Urine Negative Normal Negative [facility] Comment on above: Result Comment: . Performed By: #### C UA2 #### [facility] [address] [place] [address] Urobilinogen,Urine Normal Normal Normal (0-1) [facility] Comment on above: Result Comment: . Performed By: #### C UA2 #### [facility] [address] [place] [address] Urinalysison 03-17-2022 Appearance (U) Clear Clear NA [facility] Comment on above: . Bilirubin Urine Negative [...] above: . Occult Blood,Urine Negative Negative mg/dL [facility] Comment on above: . pH (U) 6.0 [pH] [facility] Comment on above: . Specific [place], Urine 1.009 S [facility] Comment on above: . Total Protein, Urine Negative Negativ e mg/dL [facility] Comment on above: . Urobilinogen, Urine Normal Normal (0-1) mg/dL [facility] Comment on above: . Test Performed by [facility], [facility] Melia Alfaro , [address] LAB [facility] .Urinalysis Microscopic (AO) on 12-19-2021 UA Bacteria Trace Abnormal [facility] ([place] Comment on above: Performed By: #### U AMICAO, UA #### [address] [address] UA RBC 0-5 Abnormal None Seen [facility] ([place] Comment on above: Performed By: #### U AMICAO, UA #### [address] [address] UA Squam Epithelial None Seen Normal None Seen [facility] ([place]) Comment on above: Performed By: #### U AMICAO, UA #### [address] [address] UA WBC 0-5 Abnormal None Seen [facility] ([place] Comment on above: Performed By: #### U AMICAO, UA #### [place] [address] LABORATORYOrdered By: Modesto Tam on 12-19-2021 Appearance [...] SS UAon 12-19-2021 Color (U) Ruchi Normal [facility] ([place] Comment on above: Performed By: #### U AMICAO, UA #### [place] [address] [address] Glucose (U) [Mass/Vol] 100 mg/dL Abnormal Negative [facility] ([place]) Comment on above: Performed By: #### U AMICAO, UA #### [place] [id number] [place], [place] [address] Ketones Ql (U) Trace Abnormal Negative [facility] ([place] Comment on above: Performed By: #### U AMICAO, UA #### [place] [id number] [place], [place] [address] UA Appear Clear Normal Clear [facility] ([place] Comment on above: Performed By: #### U AMICAO, UA #### [place] [address] [address] UA Bili Small Abnormal Negative [facility] ([place] Comment on above: Performed By: #### U AMICAO, UA #### [place] [address] [address] UA Blood Trace Abnormal Negative [facility] ([place] Comment on above: Performed By: #### U AMICAO, UA #### [place] [address] [address] UA Leuk Est Negative Normal Negative [facility] ([place] Comment on above: Performed By: #### U AMICAO, UA #### [place] [address] [address] UA Nitrite Positive Abnormal Negative [facility] ([place] Comment on above: Performed By: #### U AMICAO, UA #### [place] [address] UA pH 5.0 Normal 5.0 - 8.0 [facility] ([place] Comment on above: Performed By: #### U AMICAO, UA #### [place] [address] [address] UA Protein Trace Normal Negative [facility] ([place] Comment on above: Performed By: #### U AMICAO, UA #### [place] [address] [address] UA Spec Grav 1.025 Normal 1.015-1.025 [facility] ([place] Comment on above: Performed By: #### U AMICAO, UA #### [place] [address] [address] UA Specimen Type Clean Catch Normal [facility] ([place] Comment on above: Performed By: #### U AMICAO, UA #### [place] [address] [address] UA Urobilinogen 1.0 E.U./dL Normal 0.2-1.0 [facility] ([place] Comment on above: Performed By: #### U AMICAO, UA #### [place] [address] [place], [place] [address] CR Chest Portableon 12-16-19 CR Chest Portable Patient Name: GILBERTO JOHNSON Diagnostic Radiology ACCESSION EXAM DATE/TIME PROCEDURE ORDERING PROVIDER [id number] 12/15/2021 21:42 EDT CR Chest Portable HAYDEN IVAN CPT code 44483 Reason For Exam (CR Chest Portable) fever [...] Transcribed Date and Time: 12/15/2021 9:56 Normal [facility] Comp Metabolic Panelon 12-15 ALP [Catalytic activity/Vol] 63 U/L Normal 38-126 [facility] Comment on above: Performed By: #### C MP3, HEMDF #### [facility] [address] [place] [address] ALT [Catalytic activity/Vol] 15 U/L Normal 0-49 [facility] Comment on above: Result Comment: The ALT test is performed by an updated assay method. Please note that the reference intervals have been changed and are now sex specific. Performed By: #### C MP3, HEMDF #### [facility] [address] [place] [address] AST [Catalytic activity/Vol] 28 U/L Normal 15-46 [facility] Comment on above: Performed By: #### C MP3, HEMDF #### [facility] [address] [place] [address] Calcium [Mass/Vol] 9.6 mg/dL Normal 8.4-10.4 [facility] Comment on above: Performed By: #### C MP3, HEMDF #### [facility] [address] [place] [address] Glucose [Mass/Vol] 104 mg/dL High 70-100 [facility] Comment on above: Performed By: #### C MP3, HEMDF #### [facility] [address] [place] [address] Protein [Mass/Vol] 7.5 g/dL Normal 6.3-8.2 [facility] Comment on above: Performed By: #### C MP3, HEMDF #### [facility] [address] [place] [address] Urea nitrogen [Mass/Vol] 3 mg/dL Low 7-17 [facility] Comment on above: Performed By: #### C MP3, HEMDF #### [facility] [address] [place] [address] Anion gap [Moles/Vol] 8 mmol/L Normal 3-13 [facility] Comment on above: Performed By: #### C MP3, HEMDF #### [facility] [address] [place] [address] Bilirubin [Mass/Vol] 0.8 mg/dL Normal 0.2-1.3 [facility] Comment on above: Performed By: #### C MP3, HEMDF #### [facility] [address] [place] [address] CO2 [Moles/Vol] 27 mmol/L Normal 22-30 [facility] Comment on above: Performed By: #### C MP3, HEMDF #### [facility] [address] [place] [address] Creatinine [Mass/Vol] 0.83 mg/dL Normal 0.52-1.25 [facility] Comment on above: Performed By: #### C MP3, HEMDF #### [facility] [address] [place] [address] eGFR OTHER > 90.0 Normal >60 [facility] Comment on above: Result Comment: KDIG O [...] Performed By: #### C MP3, HEMDF #### [facility] [address] [place] [address] GFR/1.73 sq M.predicted among blacks MDRD (S/P/Bld) [Vol rate/Area] mL/min/{1.73_m2} Normal >60 [facility] Comment on above: Performed By: #### C MP3, HEMDF #### [facility] [address] [place] [address] Albumin [Mass/Vol] 4.6 g/dL Normal 3.5-5.0 [facility] Comment on above: Performed By: #### C MP3, HEMDF #### [facility] [address] [place] [address] Chloride [Moles/Vol] 104 mmol/L Normal 98-107 [facility] Comment on above: Performed By: #### C MP3, HEMDF #### [facility] [address] [place] [address] Potassium [Moles/Vol] 3.9 mmol/L Normal 3.5-5.1 [facility] Comment on above: Performed By: #### C MP3, HEMDF #### [facility] [address] [place] [address] Sodium [Moles/Vol] 138 mmol/L Normal 135-145 [facility] Comment on above: Performed By: #### C MP3, HEMDF #### [facility] [address] [place] [address] Hemogram w/ Autodiffon 12-15 Abs Baso Cnt 0.0 10*3/uL Normal 0.0-0.2 [facility] Comment on above: Performed By: #### C MP3, HEMDF #### [facility] [address] [place] [address] Abs Neutrophile Cnt 3.3 10*3/uL Normal 1.8-7.0 [facility] Comment on above: Performed By: #### C MP3, HEMDF #### [facility] [address] [place] [address] Basophils/100 WBC (Bld) 0.7 % Normal 0.0-2.0 [facility] Comment on above: Performed By: #### C MP3, HEMDF #### [facility] [address] [place] [address] Eosinophils (Bld) [#/Vol] 0.0 10*3/uL Normal 0.0-0.5 [facility] Comment on above: Performed By: #### C MP3, HEMDF #### [facility] [address] [place] [address] Eosinophils/100 WBC (Bld) 0.3 % Low 1.0-6.0 [facility] Comment on above: Performed By: #### C MP3, HEMDF #### [facility] [address] [place] [address] Erythrocyte distribution width (RBC) [Ratio] 13.3 % Normal 11.5-14.5 [facility] Comment on above: Performed By: #### C MP3, HEMDF #### [facility] [address] [place] [address] Granulocytes/100 WBC (Bld) 62.9 % Normal 40.0-80.0 [facility] Comment on above: Performed By: #### C MP3, HEMDF #### [facility] [address] [place] [address] Hematocrit (Bld) [Volume fraction] 44.3 % Normal 40.0-52.0 [facility] Comment on above: Performed By: #### C MP3, HEMDF #### [facility] [address] [place] [address] Hemoglobin (Bld) [Mass/Vol] 15.6 g/dL Normal 13.0-18. 0 [facility] Comment on above: Performed By: #### C MP3, HEMDF #### [facility] [address] [place] [address] Lymphocytes (Bld) [#/Vol] 1.4 10*3/uL Normal 1.0-4.3 [facility] Comment on above: Performed By: #### C MP3, HEMDF #### [facility] [address] [place] [address] Lymphocytes/100 WBC (Bld) 26.9 % Normal 20.0-40.0 [facility] Comment on above: Performed By: #### C MP3, HEMDF #### [facility] [address] [place] [address] MCH (RBC) [Entitic mass] 31.4 pg Normal 26.0-34.0 [facility] Comment on above: Performed By: #### C MP3, HEMDF #### [facility] [address] [place] [address] MCHC 35.1 % Normal 32.0-36.0 [facility] Comment on above: Performed By: #### C MP3, HEMDF #### [facility] [address] [place] [address] MCV (RBC) [Entitic vol] 89.3 fL Normal 80.0-98.0 [facility] Comment on above: Performed By: #### C MP3, HEMDF #### [facility] [address] [place] [address] Monocytes (Bld) [#/Vol] 0.5 10*3/uL Normal 0.0-0.8 [facility] Comment on above: Performed By: #### C MP3, HEMDF #### [facility] [address] [place] [address] Monocytes/100 WBC (Bld) 9.2 % Normal 2.0-10.0 [facility] Comment on above: Performed By: #### C MP3, HEMDF #### [facility] [address] [place] [address] Platelet mean volume (Bld) [Entitic vol] 7.7 fL Normal 7.4-10.4 [facility] Comment on above: Performed By: #### C MP3, HEMDF #### [facility] [address] [place] [address] Platelets (Bld) [#/Vol] 218 10*3/uL Normal 140-440 [facility] Comment on above: Performed By: #### C MP3, HEMDF #### [facility] [address] [place] [address] RBC (Bld) [#/Vol] 4.96 10*6/uL Normal 4.40-5.90 [facility] Comment on above: Performed By: #### C MP3, HEMDF #### [facility] [address] [place] [address] WBC (Bld) [#/Vol] 5.2 10*3/uL Normal 3.6-10.7 [facility] Comment on above: Performed By: #### C MP3, HEMDF #### [facility] [address] [place] [address] CR Chest Portableon 08-16-20 21 CR Chest Portable Patient Name: GILBERTO JOHNSON Diagnostic Radiology ACCESSION EXAM DATE/TIME PROCEDURE ORDERING PROVIDER [id number] 08/16/2021 18:25 EST CR Chest Portable MD HARJIT, FLORECITA Haji CPT code 84777 Reason For Exam (CR Chest Portable) shortness [...] ALFRED Transcribed Date and Time: 08/16/2021 6:38 [facility] XR CHEST PORTABLEon 08-16-20 Patient Name: GILBERTO JOHNSON Diagnostic Radiology ACCESSION EXAM DATE/TIME PROCEDURE ORDERING PROVIDER [id number] 08/16/2021 18:25 EST CR Chest Portable MD LOMBARDI DAVID C. CPT code 34442 Reason For Exam (CR Chest Portable) shortness [...] ALFRED Transcribed Date and Time: 08/16/2021 6:38 [facility] Benny Olivo DO - 08/16/2021 Patient Name: GILBERTO JOHNSON Diagnostic Radiology ACCESSION EXAM DATE/TIME PROCEDURE ORDERING PROVIDER [id number] 08/16/2021 18:25 EST CR Chest Portable MD HARJIT, FLORECITA Romero. CPT code 31505 Reason For Exam (CR Chest Portable) shortness [...] Radiology Study observation (narrative) [facility] Work Phone: XR CHEST PORTABLEOrdered By: Benny Olivo on 08-16-[address] [facility] Work [facility]: [facility] on 04-12-2017 [facility] Note Normal [facility] Patient Summary Documentson 04-10-2017 Patient Summary Documents Normal [facility] Patient Summary Documents Normal [facility] No Panel Information Influenza Types A,B Direct FA (JESS) [facility] Work Phone: Vital Signs Date Time Vital Sign Value Performing Clinician Facility 03-19-2025 01:41-0400 Body temperature 98 [degF] No Primary Care Physician [facility] 03-19-2025 01:41-0400 Diastolic blood pressure 81 mm[Hg] No Primary Care Physician [facility] 03-19-2025 01:41-0400 Heart rate 71 /min No Primary Care Physician [facility] 03-19-2025 01:41-0400 Respiratory rate 18 /min No Primary Care Physician [facility] 03-19-2025 01:41-0400 SaO2% (BldA) [Mass fraction] 100 % No Primary Care Physician [facility] 03-19-2025 01:41-0400 Systolic blood pressure 134 mm[Hg] No Primary Care Physician [facility] 03-19-2025 00:42-0400 Body height 173 cm No Primary Care Physician [facility] 03-19-2025 00:42-0400 Body mass index (BMI) [Ratio] 23.9 kg/m2 No Primary Care Physician [facility] 03-19-2025 00:42-0400 Body weight 71.6 kg No Primary Care Physician [facility] 12-14-2024 18:41-0400 Body mass index (BMI) [Ratio] 23.63 kg/m2 Alex Landers MD Work Phone: [facility] 12-14-2024 18:41-0400 Body temperature 97.9 [degF] Alex Landers MD Work Phone: [facility] 12-14-2024 18:41-0400 Body weight 70.5 kg Alex Landers MD Work Phone: [facility] 12-14-2024 18:41-0400 Diastolic blood pressure 74 mm[Hg] Alex Landers MD Work Phone: [facility] 12-14-2024 18:41-0400 Heart rate 101 /min Alex Landers MD Work Phone: [facility] 12-14-2024 18:41-0400 Respiratory rate 16 /min Alex Landers MD Work Phone: [facility] 12-14-2024 18:41-0400 SaO2% (BldA) [Mass fraction] 96 % Alex Landers MD Work Phone: [facility] 12-14-2024 18:41-0400 Systolic blood pressure 122 mm[Hg] Alex Landers MD Work Phone: [facility] 12-06-2024 12:34-0500 Body mass index (BMI) [Ratio] 22 kg/m2 No Primary Care Physician [facility] 12-06-2024 12:34-0500 Body temperature 97.6 [degF] No Primary Care Physician [facility] 12-06-2024 12:34-0500 Body weight 65.77 kg No Primary Care Physician [facility] 12-06-2024 12:34-0500 Diastolic blood pressure 95 mm[Hg] No Primary Care Physician [facility] 12-06-2024 12:34-0500 Heart rate 86 /min No Primary Care Physician [facility] 12-06-2024 12:34-0500 Respiratory rate 15 /min No Primary Care Physician [facility] 12-06-2024 12:34-0500 SaO2% (BldA) [Mass fraction] 97 % No Primary Care Physician [facility] 12-06-2024 12:34-0500 Systolic blood pressure 130 mm[Hg] No Primary Care Physician [facility] 12-25-2023 07:31-0400 Body temperature 97.4 [degF] [facility] 12-25-2023 07:31-0400 Diastolic blood pressure 83 mm[Hg] [facility] 12-25-2023 07:31-0400 Heart rate 79 /min [facility] 12-25-2023 07:31-0400 Respiratory rate 16 /min [facility] 12-25-2023 07:31-0400 SaO2% (BldA) [Mass fraction] 99 % [facility] 12-25-2023 07:31-0400 Systolic blood pressure 116 mm[Hg] [facility] 12-25-2023 03:45-0400 Body height 172.72 cm [facility] 12-25-2023 03:45-0400 Body mass index (BMI) [Ratio] 21.2 kg/m2 [facility] 12-25-2023 03:45-0400 Body weight 63.5 kg [facility] 11-19-2023 17:30-0500 Body temperature 97.81 [degF] Krislyn Aberegg PA Work Phone: [facility] 11-19-2023 17:30-0500 Body weight 71.22 kg Krislyn Aberegg PA Work Phone: [facility] 11-19-2023 17:30-0500 Diastolic blood pressure 88 mm[Hg] Krislyn Aberegg PA Work Phone: [facility] 11-19-2023 17:30-0500 Heart rate 111 /min Krislyn Aberegg PA Work Phone: [facility] 11-19-2023 17:30-0500 Respiratory rate 18 /min Krislyn Aberegg PA Work Phone: [facility] 11-19-2023 17:30-0500 SaO2% (BldA) [Mass fraction] 100 % Travis KLEIN Work Phone: [facility] 11-19-2023 17:30-0500 Systolic blood pressure 132 mm[Hg] Travis Hameed PA Work Phone: [facility] 06-05-2023 18:03-0400 Body height 172.72 cm [facility] 06-05-2023 18:03-0400 Body mass index (BMI) [Ratio] 22.4 kg/m2 [facility] 06-05-2023 18:03-0400 Body temperature 97.1 [degF] [facility] 06-05-2023 18:03-0400 Body weight 66.85 kg [facility] 06-05-2023 18:03-0400 Diastolic blood pressure 115 mm[Hg] [facility] 06-05-2023 18:03-0400 Heart rate 96 /min [facility] 06-05-2023 18:03-0400 Respiratory rate 18 /min [facility] 06-05-2023 18:03-0400 SaO2% (BldA) [Mass fraction] 99 % [facility] 06-05-2023 18:03-0400 Systolic blood pressure 141 mm[Hg] [facility] 02-28-2023 19:52-0400 Body height 172.72 cm [facility] 02-28-2023 19:52-0400 Body mass index (BMI) [Ratio] 21.6 kg/m2 [facility] 02-28-2023 19:52-0400 Body temperature 98 [degF] [facility] 02-28-2023 19:52-0400 Body weight 64.45 kg [facility] 02-28-2023 19:52-0400 Diastolic blood pressure 94 mm[Hg] [facility] 02-28-2023 19:52-0400 Heart rate 92 /min [facility] 02-28-2023 19:52-0400 Respiratory rate 16 /min [facility] 02-28-2023 19:52-0400 SaO2% (BldA) [Mass fraction] 98 % [facility] 02-28-2023 19:52-0400 Systolic blood pressure 128 mm[Hg] [facility] 02-03-2023 06:40-0400 Diastolic blood pressure 77 mm[Hg] [facility] 02-03-2023 06:40-0400 Heart rate 62 /min [facility] 02-03-2023 06:40-0400 Respiratory rate 15 /min [facility] 02-03-2023 06:40-0400 SaO2% (BldA) [Mass fraction] 97 % [facility] 02-03-2023 06:40-0400 Systolic blood pressure 108 mm[Hg] [facility] 02-03-2023 06:11-0400 Body height 172.72 cm [facility] 02-03-2023 06:11-0400 Body temperature 99.4 [degF] [facility] 01-13-2023 06:11-0400 Body height 172.72 cm [facility] 01-13-2023 06:11-0400 Body mass index (BMI) [Ratio] 21.9 kg/m2 [facility] 01-13-2023 06:11-0400 Body temperature 98.5 [degF] [facility] 01-13-2023 06:11-0400 Body weight 65.5 kg [facility] 01-13-2023 06:11-0400 Diastolic blood pressure 74 mm[Hg] [facility] 01-13-2023 06:11-0400 Heart rate 74 /min [facility] 01-13-2023 06:11-0400 Respiratory rate 15 /min [facility] 01-13-2023 06:11-0400 SaO2% (BldA) [Mass fraction] 98 % [facility] 01-13-2023 06:11-0400 Systolic blood pressure 132 mm[Hg] [facility] 01-02-2023 21:09-0400 Body temperature 98.4 [degF] [facility] 01-02-2023 21:09-0400 Diastolic blood pressure 94 mm[Hg] [facility] 01-02-2023 21:09-0400 Heart rate 87 /min [facility] 01-02-2023 21:09-0400 Respiratory rate 18 /min [facility] 01-02-2023 21:09-0400 Systolic blood pressure 139 mm[Hg] [facility] 01-02-2023 21:05-0400 Body height 172.72 cm [facility] 01-02-2023 21:05-0400 Body mass index (BMI) [Ratio] 21.4 kg/m2 [facility] 01-02-2023 21:05-0400 Body weight 63.95 kg [facility] 01-02-2023 06:36-0400 Body height 172.72 cm [facility] 01-02-2023 06:36-0400 Body mass index (BMI) [Ratio] 21.7 kg/m2 [facility] 01-02-2023 06:36-0400 Body temperature 98.2 [degF] [facility] 01-02-2023 06:36-0400 Body weight 64.8 kg [facility] 01-02-2023 06:36-0400 Diastolic blood pressure 76 mm[Hg] [facility] 01-02-2023 06:36-0400 Heart rate 76 /min [facility] 01-02-2023 06:36-0400 Respiratory rate 17 /min [facility] 01-02-2023 06:36-0400 SaO2% (BldA) [Mass fraction] 98 % [facility] 01-02-2023 06:36-0400 Systolic blood pressure 141 mm[Hg] [facility] 12-31-2022 09:35-0400 Respiratory rate 16 /min [facility] 12-31-2022 08:55-0400 Body mass index (BMI) [Ratio] 20.3 kg/m2 [facility] 12-31-2022 08:55-0400 Body temperature 98 [degF] [facility] 12-31-2022 08:55-0400 Body weight 60.78 kg [facility] 12-31-2022 08:55-0400 Diastolic blood pressure 70 mm[Hg] [facility] 12-31-2022 08:55-0400 Heart rate 79 /min [facility] 12-31-2022 08:55-0400 SaO2% (BldA) [Mass fraction] 99 % [facility] 12-31-2022 08:55-0400 Systolic blood pressure 112 mm[Hg] [facility] 12-01-2022 21:38-0500 Diastolic blood pressure 63 mm[Hg] [facility] 12-01-2022 21:38-0500 Heart rate 64 /min [facility] 12-01-2022 21:38-0500 Systolic blood pressure 127 mm[Hg] [facility] 12-01-2022 20:44-0500 Body height 172.72 cm [facility] 12-01-2022 20:44-0500 Body mass index (BMI) [Ratio] 21.9 kg/m2 [facility] 12-01-2022 20:44-0500 Body temperature 99.3 [degF] [facility] 12-01-2022 20:44-0500 Body weight 65.4 kg [facility] 12-01-2022 20:44-0500 Respiratory rate 18 /min [facility] 12-01-2022 20:44-0500 SaO2% (BldA) [Mass fraction] 95 % [facility] 10-10-2022 22:52-0500 Diastolic blood pressure 90 mm[Hg] [facility] 10-10-2022 22:52-0500 Heart rate 98 /min [facility] 10-10-2022 22:52-0500 Respiratory rate 15 /min [facility] 10-10-2022 22:52-0500 SaO2% (BldA) [Mass fraction] 99 % [facility] 10-10-2022 22:52-0500 Systolic blood pressure 136 mm[Hg] [facility] 10-10-2022 21:07-0500 Body mass index (BMI) [Ratio] 21.2 kg/m2 [facility] 10-10-2022 21:07-0500 Body temperature 97 [degF] [facility] 10-10-2022 21:07-0500 Body weight 63.5 kg [facility] 10-02-2022 19:30-0500 Diastolic Blood Pressure Non-Invasive [address] MCKAYLA CARSON DO [facility] 10-02-2022 19:30-0500 Heart rate 112 /min DR MCKAYLA CARSON DO [facility] 10-02-2022 19:30-0500 Respiratory rate 18 /min DR MCKAYLA CARSON DO [facility] 10-02-2022 19:30-0500 Systolic Blood Pressure Non-Invasive [address] MCKAYLA CARSON DO [facility] 09-09-2022 13:19-0500 Body height 172.72 cm [facility] Work Phone: 09-09-2022 13:19-0500 Body mass index (BMI) [Ratio] 19 kg/m2 [facility] 09-09-2022 13:19-0500 Body temperature 97.6 [degF] [facility] 09-09-2022 13:19-0500 Body weight 56.69 kg [facility] 09-09-2022 13:19-0500 Diastolic blood pressure 88 mm[Hg] [facility] 09-09-2022 13:19-0500 Heart rate 98 /min [facility] 09-09-2022 13:19-0500 Respiratory rate 18 /min [facility] 09-09-2022 13:19-0500 SaO2% (BldA) [Mass fraction] 99 % [facility] 09-09-2022 13:19-0500 Systolic blood pressure 113 mm[Hg] [facility] 09-03-2022 17:27-0500 Respiratory rate 22 /min [facility] 09-03-2022 17:00-0500 Diastolic blood pressure 88 mm[Hg] [facility] 09-03-2022 17:00-0500 Systolic blood pressure 140 mm[Hg] [facility] 09-03-2022 12:40-0500 Body height 172.72 cm [facility] Work Phone: 09-03-2022 12:40-0500 Body mass index (BMI) [Ratio] 20.5 kg/m2 [facility] 09-03-2022 12:40-0500 Body temperature 100 [degF] [facility] 09-03-2022 12:40-0500 Body weight 61.23 kg [facility] 09-03-2022 12:40-0500 Heart rate 117 /min [facility] 09-03-2022 12:40-0500 SaO2% (BldA) [Mass fraction] 100 % [facility] 08-20-2022 11:21-0500 Body height 172.72 cm [facility] Work Phone: 08-20-2022 11:21-0500 Body mass index (BMI) [Ratio] 19.8 kg/m2 [facility] 08-20-2022 11:21-0500 Body temperature 96.5 [degF] [facility] 08-20-2022 11:21-0500 Body weight 58.96 kg [facility] 08-20-2022 11:21-0500 Diastolic blood pressure 92 mm[Hg] [facility] 08-20-2022 11:21-0500 Heart rate 102 /min [facility] 08-20-2022 11:21-0500 Respiratory rate 18 /min [facility] 08-20-2022 11:21-0500 SaO2% (BldA) [Mass fraction] 99 % [facility] 08-20-2022 11:21-0500 Systolic blood pressure 130 mm[Hg] [facility] 07-30-2022 14:56-0400 Body mass index (BMI) [Ratio] 20.7 kg/m2 [facility] Work Phone: 07-30-2022 14:56-0400 Body temperature 98.2 [degF] [facility] Work Phone: 07-30-2022 14:56-0400 Body weight 61.7 kg [facility] Work Phone: 07-30-2022 14:56-0400 Diastolic blood pressure 82 mm[Hg] [facility] Work Phone: 07-30-2022 14:56-0400 Heart rate 98 /min [facility] Work Phone: 07-30-2022 14:56-0400 Respiratory rate 16 /min [facility] Work Phone: 07-30-2022 14:56-0400 SaO2% (BldA) [Mass fraction] 100 % [facility] Work Phone: 07-30-2022 14:56-0400 Systolic blood pressure 113 mm[Hg] [facility] Work Phone: 07-30-2022 03:00-0400 Heart rate 77 /min [facility] Work Phone: 07-30-2022 03:00-0400 Respiratory rate 15 /min [facility] Work Phone: 07-30-2022 03:00-0400 SaO2% (BldA) [Mass fraction] 99 % [facility] Work Phone: 07-30-2022 01:10-0400 Diastolic blood pressure 79 mm[Hg] [facility] Work Phone: 07-30-2022 01:10-0400 Systolic blood pressure 129 mm[Hg] [facility] Work Phone: 07-29-2022 21:11-0400 Body height 172.72 cm [facility] Work Phone: 07-29-2022 21:11-0400 Body mass index (BMI) [Ratio] 19.8 kg/m2 [facility] Work Phone: 07-29-2022 21:11-0400 Body temperature 97.6 [degF] [facility] Work Phone: 07-29-2022 21:11-0400 Body weight 58.96 kg [facility] Work Phone: 06-17-2022 20:24-0400 Body height 172.72 cm [facility] Work Phone: 06-17-2022 20:24-0400 Body mass index (BMI) [Ratio] 20.5 kg/m2 [facility] Work Phone: 06-17-2022 20:24-0400 Body temperature 98.4 [degF] [facility] Work Phone: 06-17-2022 20:24-0400 Body weight 61.23 kg [facility] Work Phone: 06-17-2022 20:24-0400 Diastolic blood pressure 73 mm[Hg] [facility] Work Phone: 06-17-2022 20:24-0400 Heart rate 95 /min [facility] Work Phone: 06-17-2022 20:24-0400 Respiratory rate 16 /min [facility] Work Phone: 06-17-2022 20:24-0400 SaO2% (BldA) [Mass fraction] 92 % [facility] Work Phone: 06-17-2022 20:24-0400 Systolic blood pressure 129 mm[Hg] [facility] Work Phone: 05-02-2022 02:30-0400 Body height 172.7 cm Luis M Figueredo MD Work Phone: [facility] 05-02-2022 02:30-0400 Body mass index (BMI) [Ratio] 22.05 kg/m2 Luis M Figueredo MD Work Phone: [facility] 05-02-2022 02:30-0400 Body temperature 98.29 [degF] Luis M Figueredo MD Work Phone: [facility] 05-02-2022 02:30-0400 Body weight 65.77 kg Luis M Figueredo MD Work Phone: [facility] 05-02-2022 02:30-0400 Diastolic blood pressure 82 mm[Hg] Luis M Figueredo MD Work Phone: [facility] 05-02-2022 02:30-0400 Heart rate 114 /min Luis M Figueredo MD Work Phone: [facility] 05-02-2022 02:30-0400 Respiratory rate 16 /min Luis M Figueredo MD Work Phone: [facility] 05-02-2022 02:30-0400 SaO2% (BldA) [Mass fraction] 97 % Luis M Figueredo MD Work Phone: [facility] 05-02-2022 02:30-0400 Systolic blood pressure 123 mm[Hg] Luis M Figueredo MD Work Phone: [facility] 03-28-2022 17:11-0400 Diastolic blood pressure 79 mm[Hg] Bassem Elena MD Work Phone: [facility] 03-28-2022 17:11-0400 Heart rate 80 /min Bassem Elena MD Work Phone: [facility] 03-28-2022 17:11-0400 Respiratory rate 14 /min Bassem Elena MD Work Phone: [facility] 03-28-2022 17:11-0400 SaO2% (BldA) [Mass fraction] 100 % Bassem Elena MD Work Phone: [facility] 03-28-2022 17:11-0400 Systolic blood pressure 132 mm[Hg] Bassem Elena MD Work Phone: [facility] 03-28-2022 14:05-0400 Body height 172.7 cm Bassem Elena MD Work Phone: [facility] 03-28-2022 14:05-0400 Body mass index (BMI) [Ratio] 20.53 kg/m2 Bassem Elena MD Work Phone: [facility] 03-28-2022 14:05-0400 Body temperature 98.4 [degF] Bassem Elena MD Work Phone: [facility] 03-28-2022 14:05-0400 Body weight 61.24 kg Bassem Elena MD Work Phone: [facility] 03-27-2022 15:10-0400 Body height 172.7 cm Kevin Gill PA-C Work Phone: [facility] 03-27-2022 15:10-0400 Body temperature 98.6 [degF] Kevin Gill PA-C Work Phone: [facility] 03-27-2022 15:10-0400 Body weight 63.96 kg Kevin Gill PA-C Work Phone: [facility] 03-27-2022 15:10-0400 Diastolic blood pressure 88 mm[Hg] Kevin Gill PA-C Work Phone: [facility] 03-27-2022 15:10-0400 Heart rate 106 /min Kevin Gill PA-C Work Phone: [facility] 03-27-2022 15:10-0400 Respiratory rate 16 /min Kevin Gill PA-C Work Phone: [facility] 03-27-2022 15:10-0400 SaO2% (BldA) [Mass fraction] 96 % Kevin Gill PA-C Work Phone: [facility] 03-27-2022 15:10-0400 Systolic blood pressure 110 mm[Hg] Kevin Gill PA-C Work Phone: [facility] 03-23-2022 19:39-0400 Body height 172.7 cm Florecita Caruso MD Work Phone: [facility] 03-23-2022 19:39-0400 Body mass index (BMI) [Ratio] 20.53 kg/m2 Florecita Caruso MD Work Phone: [facility] 03-23-2022 19:39-0400 Body temperature 98.8 [degF] Florecita Caruso MD Work Phone: [facility] 03-23-2022 19:39-0400 Body weight 61.24 kg Florecita Caruso MD Work Phone: [facility] 03-23-2022 19:39-0400 Diastolic blood pressure 79 mm[Hg] Florecita Caruso MD Work Phone: [facility] 03-23-2022 19:39-0400 Heart rate 94 /min Florecita Caruso MD Work Phone: [facility] 03-23-2022 19:39-0400 Respiratory rate 18 /min Florecita Caruso MD Work Phone: [facility] 03-23-2022 19:39-0400 SaO2% (BldA) [Mass fraction] 99 % Florecita Caruso MD Work Phone: [facility] 03-23-2022 19:39-0400 Systolic blood pressure 123 mm[Hg] Florecita Caruso MD Work Phone: [facility] 03-17-2022 19:10-0400 Body temperature 98.2 [degF] Wally Burleson MD Work Phone: [facility] 03-17-2022 19:10-0400 Diastolic blood pressure 82 mm[Hg] Wally Burleson MD Work Phone: [facility] 03-17-2022 19:10-0400 Heart rate 96 /min Wally Burleson MD Work Phone: [facility] 03-17-2022 19:10-0400 Respiratory rate 18 /min Wally Burleson MD Work Phone: [facility] 03-17-2022 19:10-0400 SaO2% (BldA) [Mass fraction] 99 % Wally Burleson MD Work Phone: [facility] 03-17-2022 19:10-0400 Systolic blood pressure 131 mm[Hg] Wally Burleson MD Work Phone: [facility] 02-16-2022 20:02-0400 Body temperature 97.9 [degF] Lynn Brenda DO Work Phone: [facility] 02-16-2022 20:02-0400 Diastolic blood pressure 88 mm[Hg] Lynn Brenda DO Work Phone: [facility] 02-16-2022 20:02-0400 Heart rate 98 /min Lynn Brenda DO Work Phone: [facility] 02-16-2022 20:02-0400 Respiratory rate 18 /min Lynn Gutierrez DO Work Phone: [facility] 02-16-2022 20:02-0400 SaO2% (BldA) [Mass fraction] 97 % Lynn Gutierrez DO Work Phone: [facility] 02-16-2022 20:02-0400 Systolic blood pressure 122 mm[Hg] Lynn Gutierrez DO Work Phone: [facility] 12-19-2021 09:29-0400 Body temperature 98.78 [degF] JENNIFER VALLES MD [facility] 12-19-2021 09:29-0400 Body weight 65.8 kg JENNIFER VALLES MD [facility] 12-19-2021 09:29-0400 Diastolic blood pressure 75 mm[Hg] JENNIFER VALLES MD [facility] 12-19-2021 09:29-0400 Heart rate 97 /min JENNIFER VALLES MD [facility] 12-19-2021 09:29-0400 Respiratory rate 16 /min JENNIFER VALLES MD [facility] 12-19-2021 09:29-0400 Systolic blood pressure 142 mm[Hg] JENNIFER VALLES MD [facility] 12-16-2021 22:42-0400 Body height 172.7 cm Wally Burleson MD Work Phone: [facility] 12-16-2021 22:42-0400 Body mass index (BMI) [Ratio] 21.13 kg/m2 Wally Burleson MD Work Phone: [facility] 12-16-2021 22:42-0400 Body temperature 98.1 [degF] Wally Burleson MD Work Phone: [facility] 12-16-2021 22:42-0400 Body weight 63.05 kg Wally Burleson MD Work Phone: [facility] 12-16-2021 22:42-0400 Diastolic blood pressure 95 mm[Hg] Wally Burleson MD Work Phone: [facility] 12-16-2021 22:42-0400 Heart rate 97 /min Wally Burleson MD Work Phone: [facility] 12-16-2021 22:42-0400 Respiratory rate 18 /min Wally Burleson MD Work Phone: [facility] 12-16-2021 22:42-0400 SaO2% (BldA) [Mass fraction] 98 % Wally Burleson MD Work Phone: [facility] 12-16-2021 22:42-0400 Systolic blood pressure 140 mm[Hg] Wally Burleson MD Work Phone: [facility] 10-04-2021 19:16-0500 Body height 172.7 cm Tereso Kuo MD Work Phone: [facility] 10-04-2021 19:16-0500 Body mass index (BMI) [Ratio] 22.5 kg/m2 Tereso Kuo MD Work Phone: [facility] 10-04-2021 19:16-0500 Body temperature 99.1 [degF] Tereso Kuo MD Work Phone: [facility] 10-04-2021 19:16-0500 Body weight 67.13 kg Tereso Kuo MD Work Phone: [facility] 10-04-2021 19:16-0500 Diastolic blood pressure 86 mm[Hg] Tereso Kuo MD Work Phone: [facility] 10-04-2021 19:16-0500 Heart rate 92 /min Tereso Kuo MD Work Phone: [facility] 10-04-2021 19:16-0500 Respiratory rate 16 /min Tereso Kuo MD Work Phone: [facility] 10-04-2021 19:16-0500 SaO2% (BldA) [Mass fraction] 96 % Tereso Kuo MD Work Phone: [facility] 10-04-2021 19:16-0500 Systolic blood pressure 110 mm[Hg] Tereso Kuo MD Work Phone: [facility] 08-16-2021 19:03-0500 Diastolic blood pressure 84 mm[Hg] Florecita Lombardi MD Work Phone: [facility] 08-16-2021 19:03-0500 Heart rate 84 /min Florecita Lombardi MD Work Phone: [facility] 08-16-2021 19:03-0500 Respiratory rate 18 /min Florecita Lombardi MD Work Phone: [facility] 08-16-2021 19:03-0500 SaO2% (BldA) [Mass fraction] 97 % Florecita Lombardi MD Work Phone: [facility] 08-16-2021 19:03-0500 Systolic blood pressure 127 mm[Hg] Florecita Lombardi MD Work Phone: [facility] 08-16-2021 18:07-0500 Body height 172.7 cm Florecita Lombardi MD Work Phone: [facility] 08-16-2021 18:07-0500 Body mass index (BMI) [Ratio] 20.53 kg/m2 Florecita Lombardi MD Work Phone: [facility] 08-16-2021 18:07-0500 Body temperature 99.7 [degF] Florecita Lombardi MD Work Phone: [facility] 08-16-2021 18:07-0500 Body weight 61.24 kg Florecita Lombardi MD Work Phone: [facility] Encounters Encounter Date Encounter Type Care Provider Facility Start: 03-19-2025 End: 03-19-2025 Emergency department patient visit No Primary Care Physician -Emergency Department Work Phone: Start: 12-14-2024 End: 12-14-2024 ambulatory DALTON Monik BAUMANNLAURI Facility:[facility] Start: 12-14-2024 End: 12-14-2024 Office outpatient visit 15 minutes Alex Landers MD Work Phone: [facility] Comment on above: Post-nasal drainage (Primary Dx) Start: 12-06-2024 End: 12-06-2024 Emergency department patient visit Dr. Marco Antonio Cintron MD -Emergency Department Work Phone: Start: 10-13-2024 End: 10-13-2024 Emergency department patient visit Antwan Esparza Facility:[facility] Start: 09-19-2024 End: 09-19-2024 Emergency department patient visit Michel Elena Facility:[facility] Start: 09-11-2024 End: 09-11-2024 Emergency department patient visit Ed Physician Provider Facility:[facility] Start: 08-20-2024 End: 08-20-2024 Emergency department patient visit Alan Begum Facility:[facility] Start: 07-04-2024 End: 07-04-2024 Emergency department patient visit Nolan Brady Facility:[facility] Start: 06-16-2024 End: 06-16-2024 Emergency department patient visit Matt Phylicia Facility:[facility] Start: 12-25-2023 End: 12-25-2023 Emergency department patient visit [facility] Work Phone: Start: 11-19-2023 End: 11-19-2023 Patient encounter procedure Travis KLEIN Work Phone: [facility] Comment on above: Mouth sore (Primary Dx); Bacterial sinusitis Start: 06-05-2023 End: 06-05-2023 Emergency department patient visit [facility] Work Phone: Start: 02-28-2023 End: 02-28-2023 Emergency department patient visit [facility] Start: 02-03-2023 End: 02-03-2023 Emergency department patient visit [facility] Start: 01-13-2023 End: 01-13-2023 Emergency department patient visit [facility] Start: 01-02-2023 End: 01-03-2023 Emergency department patient visit [facility] Start: 01-02-2023 End: 01-02-2023 Emergency department patient visit [facility] Start: 12-31-2022 End: 12-31-2022 Emergency department patient visit [facility] Start: 12-01-2022 End: 12-01-2022 Emergency department patient visit [facility] Start: 10-10-2022 End: 10-10-2022 Emergency department patient visit [facility] Start: 10-02-2022 End: 10-02-2022 Emergency department patient visit DR. MCKAYLA CARSON DO Facility:[facility] Start: 10-02-2022 End: 10-02-2022 Emergency department patient visit DR MCKAYLA CARSON DO [facility] Start: 09-09-2022 End: 09-09-2022 Emergency department patient visit [facility] Start: 09-03-2022 End: 09-03-2022 Emergency department patient visit [facility] Start: 08-20-2022 End: 08-20-2022 Emergency department patient visit [facility] Start: 07-30-2022 End: 07-30-2022 Emergency department patient visit [facility] Start: 07-29-2022 End: 07-30-2022 Emergency department patient visit [facility] Start: 06-30-2022 Telephone encounter Kevin rivero PA-C Work Phone: Urology Comment on above: Dedicated [employer] - [employer] Start: 06-17-2022 End: 06-17-2022 Emergency department patient visit [facility] Start: 05-02-2022 End: 05-02-2022 Emergency department patient visit Luis M Figueredo MD Work Phone: [facility] Comment on above: Acute cystitis with hematuria (Primary Dx) Start: 03-30-2022 End: 03-31-[address] NEVAEH FRAGA MD. Facility:[facility] Start: 03-30-2022 End: 03-30-[address] NEVAEH FRAGA MD [facility] Start: 03-30-2022 Telephone encounter Kevinemelyn thurmanerendira PA-C Work Phone: Urology Comment on above: Results Start: 03-28-2022 End: 03-28-2022 Emergency department patient visit Bassem Elena MD Work Phone: [facility] Comment on above: Abnormal laboratory test (Primary Dx); Anxiety state Start: 03-27-2022 End: 03-27-2022 Patient encounter procedure Kevin Shepherdoney PA-C Work Phone: Urology Comment on above: Dysuria (Primary Dx) Start: 03-25-2022 Telephone encounter Kevinemelyn thurmanerendira PA-C Work Phone: Urology Comment on above: Received Outside Med ical Records Start: 03-23-2022 End: 03-23-2022 Emergency department patient visit Florecita Caruso MD Work Phone: [facility] Comment on above: Dysuria (Primary Dx) ; Anxiety state Start: 03-17-2022 End: 03-17-2022 Emergency department patient visit Wally Burleson MD Work Phone: [facility] Comment on above: Dysuria (Primary Dx) Start: 02-16-2022 End: 02-16-2022 Emergency department patient visit Lynn Gutierrez DO Work Phone: [facility] Comment on above: Seasonal allergic rh initis due to pollen (Primary Dx) Start: 02-11-[address] NEVAEH FRAGA MD. Facility:[facility] Start: 02-03-[address] NEVAEH RFAGA MD. Facility:[facility] Start: 12-19-2021 End: 12-19-2021 Emergency department patient visit DR. NEVAEH FRAGA MD. Facility:[facility] Start: 12-19-2021 End: 12-19-2021 Emergency department patient visit JENNIFER VALLES MD [facility] Start: 12-16-2021 End: 12-16-2021 Emergency department patient visit Wally Burleson MD Work Phone: [facility] Comment on above: Anxiety state (Prima ry Dx) Start: 10-04-2021 End: 10-04-2021 Emergency department patient visit Tereso Kuo MD Work Phone: [facility] Comment on above: Acute nonintractable headache, unspecified headache type (Primary Dx) Start: 08-16-2021 End: 08-16-2021 Emergency department patient visit Florecita Lombardi MD Work Phone: [facility] Comment on above: Bronchitis (Primary Dx) Start: 04-10-2017 End: 04-11-2017 Emergency department patient visit REBEL Ritchie DANELLESohail Facility:[facility] Start: 04-09-2017 End: 04-10-2017 Emergency department patient visit MILE SANCHEZ Facility:[facility] Start: 01-07-2017 End: 01-07-2017 Patient encounter procedure JOSSY MURILLO Facility:[facility] Procedures Date Procedure Procedure Detail Performing Clinician [...] JOSSY MURILLO Start: 01-07-2017 Extraction erupted tooth/exr JOSSYDilia MURILLO Start: 01-07-2017 Impact tooth remov part bony [...] P,Tdap,Td Vaccine (7 - Td or Tdap) [facility] Start: 03-19-2025 End: 03-19-2025 [facility] Start: 12-06-2024 [facility] Start: 06-04-2024 Covid-19 Vaccine ( season) Covid-19 Vaccine ( season) [facility] Start: 06-04-2024 Influenza vaccination Influenz a Vaccine (#1) [facility] Start: 12-25-2023 End: 12-25-2023 [facility] Start: 10-04-2023 Depression Assessment Depression Ass [facility] Start: 06-05-2023 [facility] Start: 01-02-2023 Emergency department visit low/moder severity EMERGENCY DEPT VISIT [facility] Start: 2022 Lipid panel Lipid Screening [facility] Start: 06-04-2022 Influenza vaccination S [facility] Start: 10-04-2021 DEPRESSION ASSESSMENT DEPRESSION ASS [facility] Start: 06-04-2021 Influenza vaccination Flu vaccine (# 1) [facility] Start: 2006 Urine microalbumin profile DTA P,TDAP,TD (1 - Tdap) [facility] Start: 2005 Anxiety Screening Anxiety Screening [facility] Start: 2005 Depression Screening Depression Scre [facility] Start: 2005 HEPATITIS C SCREENING HEPATITIS C [facility] Start: 2005 Hepatitis C screening Hepatitis C [facility] Start: 2005 HIV SCREENING HIV SCREENING [facility] Start: 2005 HIV screening HIV Screening [facility] Start: 08-18-2000 Hepatitis B Vaccine (2 of 3 - 3-dose series) Hepatitis B Vaccine (2 of 3 - 3-dose series) [facility] Start: 1999 Adult depression scr eening assessment DEPRESSION SCREENING [facility] Start: 1999 COVID-19 Vaccine (1) COVID-19 Vaccin e (1) [facility] Start: 1992 COVID-19 VACCINE (#1) COVID-19 VACCI NE (#1) [facility] Start: 1992 COVID-19 Vaccine (1) COVID-19 Vaccin e (1) [facility] Start: 01-09-1988 COVID-19 Vaccine (#1) COVID-19 Vacci ne (#1) [facility] Start: 1987 HEPATITIS B (1 of 3 - 3-dose series) HEPATITIS B (1 of 3 - 3-dose series) [facility] Bacteria identified in Urine by Culture URINE CULTURE Microbiology Routine Dysuria 03/27/2022 3:49 PM EDT [facility] Work Phone: End: 03-17-2022 C. Trachomatis / N. Gonorrhoeae, DNA [facility] Work Phone: Comment on above: One [...] rences starting 05/02/2022 until 05/02/2022 Microscopic urinalysis [facility] Work Phone: Organism count, micr oscopic method [facility] Work Phone: Patient Education [facility] Work Phone: Patient referral [facility] Work Phone: Streptococcus pyogen es Ag [Presence] in Throat by Immunofluorescence [facility] Work Phone: Urinalysis, blood, qualitative [facility] Work Phone: Urine microscopy: ep ithelial cells [facility] Work Phone: White blood cell count [facility] Work Phone: [facility] Immunizations Immunization Date Immunization Notes Care Provider [facility] 07-13-2023 influenza virus vacc ine, unspecified formulation Alex Landers MD Work Phone: [facility] 08-23-2020 influenza virus vacc ine, unspecified formulation JENNIFER VALLES MD [facility] 08-15-2020 influenza virus vacc ine, unspecified formulation JENNIFER VALLES MD [facility] 07-29-2019 influenza virus vacc ine, unspecified formulation JENNIFER VALLES MD [facility] 07-11-2018 influenza virus vacc ine, unspecified formulation JENNIFER VALLES MD [facility] 07-04-2018 influenza virus vacc ine, unspecified formulation JENNIFER VALLES MD [facility] 07-01-2017 influenza virus vacc ine, unspecified formulation JENNIFER VALLES MD [facility] 05-22-2016 tetanus toxoid, redu jerrell diphtheria toxoid, and acellular pertussis vaccine, adsorbed JENNIFER VALLES MD [facility] 07-20-2014 influenza virus vacc ine, unspecified formulation JENNIFER VALLES MD [facility] 07-20-2014 influenza, seasonal, injectable Kevin Gill PA-C Work Phone: [facility] 07-20-2014 pneumococcal polysaccharide vaccine, 23 valent JENNIFER VALLES MD [facility] 07-21-2000 hepatitis B pediatri c vaccine JENNIFER VALLES MD [facility] 07-21-2000 measles/mumps/rubell a virus vaccine JENNIFER VALLES MD [facility] 10-16-1988 measles/mumps/rubell a virus vaccine JENNIFER VALLES MD [facility] Payers Date Payer Category Payer Self-pay [id number] 2024 Unknown [id number] 2016 Medicaid [employer] [id number] 2016-Present [phone] [address] [place] [address] Medicaid [id number] 2016 Medicaid [id number] 2015 Unknown [id number] 1987 Unknown [id number] [id number] 1987 Unknown [id number] [id number] 1987 Unknown [id number] [id number] 1987 Unknown [id number] [id number] 1987 Unknown [id number] [id number] 1987 Unknown [id number] 2.16.840.1.207510.3.579.2.627 Unknown [id number] 2.16.840.1.077840.3.579.2.462 Unknown [id number] 2.16.840.1.390207.3.579.2.462 Unknown [id number] 2.16.840.1.880842.3.579.2.462 Unknown [id number] 2.16.840.1.056299.3.579.2.462 Unknown [id number] 2.16.840.1.472618.3.579.2.462 Unknown [id number] 2.16.840.1.032085.3.579.2.462 Unknown [id number] [id number] Unknown [id number] [id number] Social History Date Type Detail Facility Start: 10-04-[address] [facility] Occasional tobacco smoker [employer] Phone: Start: 10-04-2016 End: 11-19-2023 Tobacco use and exposure User of smokeless tobacco [employer] Phone: Start: 08-16-2021 End: 12-14-2024 Alcohol intake Current drinker of alcohol (finding) [facility] Work Phone: Start: 10-04-2016 History SDOH Alcohol Comment socially [facility] Work Phone: Start: 1985 Sex Assigned At Not on file [facility] Work Phone: Start: 02-06-2022 End: 05-02-2022 Exposure to SARS-CoV-2 (event) Not sure [facility] Start: 12-15-2021 End: 11-19-2023 Tobacco smoking status NHIS Ex-smoker [facility] Start: 12-16-2021 End: 05-02-2022 Alcohol intake Ex-drinker (finding) [facility] Work Phone: Start: 08-15-2018 End: 12-25-2023 Tobacco smoking consumption unknown (finding) [facility] Smokeless tobacc o user within last 30 days [facility] Sex Assigned At [facility] History of tobacco use Chews Tobacco [facility] Work Phone: Start: 08-20-2015 End: 12-14-2024 Cigarettes smoked current (pack per day) - Reported 0.3 [facility] History of tobacco use Snuff User [facility] Start: 07-20-2014 History SDOH Alcohol Comment occasional [facility] Start: 06-17-2015 End: 11-19-2023 Tobacco Comment vapor cigarettes [facility] History of tobacco use Current smoker [facility] Work Phone: Start: 04-15-2020 None [facility] Start: 12-01-2015 Alone [facility] Start: 1985 Sex Assigned At Male [facility] History of tobacco use Cigarette Smoker C [facility] Start: 11-19-2023 End: 12-14-2024 Tobacco use panel [facility] Start: 03-19-2025 Tobacco smoking stat us RIIS Smokes tobacco daily (finding) [facility] Functional Status Date Assessment Result Facility 10-02-2022 Functional Status Room check performed [facility] 04-23-2015 Are you deaf, or do you have serious difficulty hearing No 04/23/2015 7:35 PM EDT Flores Navarro LPN No [facility] 04-23-2015 Are you blind, or do you have serious difficulty seeing, even when wearing glasses No 04/23/2015 7:35 PM EDT Flores Navarro LPN No [facility] 04-23-2015 Do you have serious difficulty walking or climbing stairs No 04/23/2015 7:35 PM EDT Flores Navarro LPN No [facility] 04-23-2015 Do you have difficul ty dressing or bathing No 04/23/2015 7:35 PM EDT Flores Navarro LPN No [facility] 04-23-2015 Because of a physica l, mental, or emotional condition, do you have difficulty doing errands alone such as visiting a physician's office or shopping No 04/23/2015 7:35 PM EDT Flores Navarro LPN No [facility] Mental Status Date Assessment Result Facility 12-06-2024 Cognitive function Level Of Cons ciousness Awake;Alert;Appropriate;Fol lows Commands [facility] Work Phone: 01-13-2023 Cognitive function Level Of Cons ciousness Awake;Alert;Appropriate;Fol lows Commands [facility] Work Phone: 10-02-2022 Mental Status Orientation Oriented x 4 [facility] 10-02-2022 Mental Status [facility] 07-30-2022 Cognitive function Level Of Cons ciousness Awake;Alert;Appropriate;Fol lows Commands [facility] Work Phone: 06-17-2022 Cognitive function Level Of Cons ciousness Awake;Alert;Appropriate;Fol lows Commands [facility] Work Phone: 04-23-2015 Because of a physica l, mental, or emotional condition, do you have serious difficulty concentrating, remembering, or making decisions Yes 04/23/2015 7:35 PM EDT Flores Navarro LPN Yes [facility] Clinical Notes 08-16-2021 to 12-14-2024 Alex Landers MD - 12/14/2024 7:00 PM Travis Hall PA - 11/19/2023 5:55 PM EST Note Date & Type Note Facility 12-14-2024 Note HNO ID: [id number] Author: ALEX LANDERS MD Service: ? Author Type: Physician Type: Progress Notes Filed: 12/14/2024 19:08 Note Text: [facility] Subjective Gilberto Johnson is [...] cetirizine and expectant management. Alex Landers MD [facility] 12-14-2024 History of Presen t illness Narrative [...] cetirizine and expectant management. Alex Landers MD [facility] Procedures documented in this encounter [facility] 11-19-2023 History of Presen t illness Narrative This note was created using Sellbrite. Subjective Gilberto Johnson is a 38 year [...] RELIEF) 50 mcg/actuation nasal spray Use 1 Caldwell in each nostril twice daily. loratadine (CLARITIN) 10 mg tablet Take 1 tablet by mouth once daily. naproxen (NAPROSYN) 500 mg tablet Take 1 tablet by mouth twice daily as needed (pain/inflammation, take with food.). hgnibelawrCOXAE-uugoie-qzqckwj ne (BMX 1:1:1) 1:1:1 liqd Mix in [...] evaluation. LATOYA Kendrick documented in this encounter [facility] 01-02-2023 Hospital Discharg e instructions Additional Instructions Please continue your antibiotic that was given to you at your last visit and wash the area with soap and water. The remaining redness and swelling will resolve over the next 2 to 3 days and then the scab will form. [facility] Work Phone: 12-01-2022 Discharge summary Note Date/Time December 01, 2022 9:28pm [facility] Medical Records Department [address] [place] [id number] Emergency Department Summary 12/01/22 MR#: [id number] Acct: [id number] Name: GILBERTO JOHNSON Rep #:[id number] : 1985 37 From: Michel Elena MD PCP: NEVAEH FRAGA Status:REG ER Location: ED HPI History of Present Illness Chief Complaint: Nausea/Vomiting Detail of Chief Complaint: Persistent nausea with vomiting Informant: patient Onset/Context/Timing Onset: Today Context: Sudden Onset Timing: Intermittent Quality: Nausea has been persistent vomiting is been intermittent. Last emesis 1329 Location: GI Current Severity: Mild Maximum Severity: Moderate Worsened by: None thing Relieved by: Nothing Associated Symptoms Associated Symptoms: Nothing Narrative Narrative: Patient is a 37-year-old male who presents with nausea and vomiting. Last emesis 133. Patient denies dry mouth or thirst. Patient [...] your Primary Care Provider. Call [facility] ([phone]) or report to the closest Emergency Room. Call 911 if necessary. 12/01/222129 <Electronically signed by Michel Elena MD> Cosigner Signature (if applicable): CC: NEVAEH FRAGA ~ Signed [facility] Work Phone: [phone]) 667-186712-30-2022 Hospital Discharge instructions Patient Education 10/02/2022 20:40:33 [...] in 1/2 cup of warm water An iexk-wlq-jpglqrt anesthetic gargle Use medicine for more relief Rxmi-dgu-webamul medicine can reduce sore throat symptoms. Ask [...] swollen glands in the neck or jaw [phone] [employer] [address] [place] [address]. All rights reserved. This information is not intended as a substitute for professional medical care. Always follow yourhealthcare professional's instructions. Follow Up Care 10/02/2022 19:21:21 With:NEVAEH FRAGA MD Address: [address] [place] [phone] When:2-4 days [facility] 12-30-2022 Emergency department Discharge summary Discharge Instructions Thank you for allowing [facility] to assist you with your healthcare needs. The following is importantdischarge information regarding your hospital visit. Diagnosis from Today's Visit swollen gland in throat What to Do Next Instructions from Your Care Team No qualifying data available. Post Acute Orders No qualifying data available. You Need to Schedule the Following Appointments Follow Up with NEVAEH FRAGA MD When Within 2-4 days Where: [address] [place] [phone] Allergies amoxicillin penicillin (Rash) Medications Please ask [...] in 1/2 cup of warm water An xchr-lhv-veztexr anesthetic gargle Use medicine for more relief Qlja-lpr-xzukobb medicine can reduce sore throat symptoms. Ask [...] swollen glands in the neck or jaw [phone] [employer] [address] [place] [address], [place] [address]. All rights reserved. This information is not intended as a substitute for professional medical care. Always follow yourhealthcare professional's instructions. Additional Information VACCINATE! IT SAVES LIVES! Members of the community who have not yet received the COVID-19 vaccine and would like to receive it can visit one of [facility] vaccine clinics. There are many vaccine clinic locations within the [facility]. For locations and available times, please visit [email or web address]. It is important to note that some COVID mobile vaccine clinics are held outdoors and may be canceled in rainy orstormy conditions. To learn more about pediatric vaccinations (ages 5-11), we invite you to visit the [facility] webpage. [email or web address]/[email or web address]-Rsgvouueuj-Mprog-Jnt stions.htmlTo learn more about the COVID-19 vaccine, we invite you to visit the [facility] website for a list of frequently asked questions. [email or web address]-Rzaexcvvov _[email or web address]-Questions.pdf [facility] Patient Portal Access Instructions: Stay connected with your healthcare team and access your personal medical information anytime with the [employer] Patient Portal. If you would like a full copy of your medical records please contact the [facility] Medical Records Department Wednesday through Wednesday between 8a.m. and 4:30p.m. Please follow the directions below to access the portal: 1.Access the email account you provided upon registration to the hospital.2.Look for an invitation email from [facility].3.Open the email and access the invitation link: Accept Invitation to [employer]4.Fill in the required lambert to create your account. Sign into [email or web address] with your username and password that you [...] you will allow to register on the [employer] Patient Portal for access to your information. You can also access the [employer] Patient Portal on the [employer] rivas. Simply click on Health Records under [employer] and then click on the [employer] logo. [...] Call your local pharmacy or go to [email or web address] to find one close to you.3.Make use of household items: Use cat litter or old coffee grounds to dispose medications if other options arenot available. Mix your drugs with these household products, seal them in an airtight container andthrow it into the garbage. Call [facility]: [phone] to be sure your drugs can be [...] aware that I should contact my doctor. Patient/[place] Room Attendant Signature: Date/Time: Relationship to Patient: Witness Name/Signature: Date/Time: [facility]09-27-2022 Miscellaneous Notes* Telephone Encounter - Yoli Jensen LPN - 06/30/2022 11:38 AM EDT Faxed office visit notes from visit on 03/27/2022 with Kevin Gill PA-C to [facility]. Yoli Jensen LPN * Telephone Encounter - Yoli Jensen LPN - 06/30/2022 11:35 AM EDT Received fax to request records from referrals dated 03/15/22-03/21/2022. Yoli Jensen LPN [facility] Miscellaneous Notes* Telephone Encounter - Nandini [...] Jensen LPN * Telephone Encounter - Yoli Mikey JOHNSTON - 03/30/2022 1:55 PM EDT ----- Message from Kevin Gill PA-C sent at 03/30/2022 12:07 PM EDT ----- No infection in the urine JORGE Calderon, LYNDON MONTELONGO [facility] Hospital Discharge instructions* Instructions* Bassem Elena [...] important. You should call the offices of [facility] on Wednesday and ask for an appointment to be seen as soon as they can work you in; at that time they may decide that a cystoscopy or other testing is necessary to furtherevaluate the cause of your bloody urine. Also make sure you [facility]; we are not making [...] sent through Care Everywhere. * Anxiety Disorder (Greenlandic) * Hematuria (Greenlandic) * Cystoscopy: Pre-op (Greenlandic) documented in [facility] Work Phone: 1(948) 615-256506-24-2022 History of Present illness Narrative* Kevin Gill PA-C - 03/27/2022 3:25 PM EDT Images from the original note were not included. PATIENT INFO: Gilberto Johnson 36 year old ( ) REFERRING PROVIDER: Nevaeh Fraga PCP: Dalton Art, March 27, 2022 HPI: Gilberto Johnson 36 [...] RELIEF) 50 mcg/actuation nasal spray Use 1 Caldwell in each nostril twicedaily. loratadine (CLARITIN) 10 [...] Plan: Appointment with Kevin. [facility] Miscellaneous Notes* Telephone Encounter - Yoli Mikey JOHNSTON - 03/25/2022 2:35 PM EDT Received outside medical records from [facility]. Patient has appointment Wednesday. Provided to Kevin Gill PA-C to review and to operations to be scanned. Yoli Mikey JOHNSTON documented in [facility] Hospital Discharge instructions* Instructions* Florecita Caruso MD - 03/23/2022 Take your anxiety medications when you get home. Call your doctor tomorrow for reevaluation. * Attachments The following attachments cannot be sent through Care Everywhere. * Anxiety Disorder (Greenlandic) * Dysuria (Greenlandic) documented in this encounterSU[facility] Work Phone: [phone]) 967-527705-16-2022 Hospital Discharge instructions* Instructions* Lynn Gutierrez DO - 02/16/2022 You have seasonal allergies, you are given a prescription for Zyrtec and Nasacort. Follow-up with your primary care physician. Return to the emergency department for new or worsening symptoms. * Attachments The following attachments cannot be sent through Care Everywhere. * Allergies: Seasonal (Greenlandic) documented in this [facility] Work Phone: [phone]) 732-805703-20-2022 Note. MICRO - Microbiology PROCEDURE: Urine Culture [...] Locations *1: This test was performed at: [facility], [address] [place] [address], [phone]- , [facility] ([place])12-19-2021 Hospital Discharge instructions Patient Education 12/19/2021 10:17:36 [...] problems caused by scarring or long-term infections. [phone] [employer] [address] [place] [address]. All rights reserved. This information is not intended as a substitute for professional medical care. Always follow yourhealthcare professional's instructions. Follow Up Care 12/19/2021 09:24:18 With:your urologist Address: When: Unknown [facility] 11-13-2021 Hospital Discharge instructions* Instructions* Florecita Lombardi MD - 08/16/2021 Return if high fever develops or increased shortness of breath * Attachments The following attachments cannot be sent through Care Everywhere. * Bronchitis (Greenlandic) documented in this [facility] Work Phone: Discharge summary Author Dr. Richards [facility] January 13, 2023 6:43am Note Date/Time January 13, 2023 6:4 3am [facility] Medical Records Department [address] [place] [address] Emergency Department Summary 01/13/23 MR#: [id number] Acct: [id number] Name: GILBERTO JOHNSON Rep #:[id number] : [...] he has a primary care physician in [place] but cannot get there because he does [...] this to him again but I did employment counselor him that I do not find any [...] your Primary Care Provider. Call [facility] ([phone]) or report to the closest Emergency Room. Call 911 if necessary. 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 Diagnostic Tests Pending * Urine Culture 12/19/21 [facility] Evaluation note* Diagnosis Bronchitis- Primary Bronchitis, not [...] Anxiety state, unspecified documented in this encounter [facility] Work Phone: Evaluation note* Diagnosis Dysuria- Primary [facility] Diagnosis Abnormal laboratory test- Primary Other abnormal clinical finding Anxiety state Anxiety state, unspecified documented in this encounter [facility] Work Phone: Evaluation note* Diagnosis Acute cystitis with hematuria- Primary Acute cystitis documented in this encounter [facility] Work Phone: Evaluation noteNo assessment information available [facility] Work Phone: Evaluation note* Diagnosis Mouth sore- Primary Other and unspecified diseases of the oral soft tissues Bacterial sinusitis Unspecified sinusitis (chronic) documented in this encounter [facility] note* Diagnosis Post-nasal drainage- Primary Unspecified sinusitis (chronic) documented in this encounter [facility] course Narrative No data available for this section [facility] Hospital Discharge instructions* Attachments The following attachments cannot be sent through Care Everywhere. * Headache (Greenlandic) documented in this [facility] Work Phone: Hospital Discharge instructions* Attachments The following attachments cannot be sent through Care Everywhere. * Anxiety Disorder (Greenlandic) documented in this [facility] Work Phone: Hospital Discharge instructions* Attachments The following attachments cannot be sent through Care Everywhere. * Dysuria (Greenlandic) documented in this [facility] Work Phone: Hospital Discharge instructions No data available for this section [facility] Hospital Discharge instructions* Attachments The following attachments cannot be sent through Care Everywhere. * UTI (Urinary Tract Infection): Male (Greenlandic) documented in this [facility] Work Phone: Hospital Discharge instructions Additional [...] get a call then that means is negative.[facility] Work Phone: Hospital Discharge instructions Additional Instructions Follow-up with your primary care physician within next 3 to 5 days.[facility] Work Phone: Hospital Discharge instructions Additional Instructions Zofran as needed for nausea. Plenty of fluids and rest. Follow-up with a local primary care physician if not improving.[facility] Work Phone: Progress note No data available for this section [facility] Reason for referral (narrative)No reason for referral information availableWMount Carmel [facility] Work Phone: Summary Purpose Family History No Family History Records FoundNo Family History Records FoundNo Family History Records FoundNo Family History Records FoundNo Family History Records FoundNo Family History Records Found Advance Directives No Advanced Directives Records Found Advance Directive Response Recorded Date/ Time Living Will No June 17, 2022 8:33pm Power of Dowel Setting Machine Operator No June 8:33pm Advance Directive Response Recorded Date/ Time Living Will No July 29 11:33pm Power of Dowel Setting Machine Operator No July 29, 2022 11:33pm Advance Directive Response Recorded Date/ Time Living Will No August 20, 2 022 12:05pm Power of Dowel Setting Machine Operator No August 20, 2022 12:05pm Advance Directive Response Recorded Date/ Time Living Will No September 03 3:25pm Power of Dowel Setting Machine Operator No September 03, 2022 3:25pm Advance Directive Response Recorded Date/ Time Living Will No September 09 3:07pm Power of Dowel Setting Machine Operator No September 09, 2022 3:07pm Advance Directive Response Recorded Date/ Time Living Will No December 01, 2 023 8:51pm Power of Dowel Setting Machine Operator No December 01, 2022 8:51pm Advance Directive Response Recorded Date/ Time Living Will No January 02, 2023 6:38am Power of Dowel Setting Machine Operator No January 02 6:38am Advance Directive Response Recorded Date/ Time Living Will No January 02, 2023 9:36pm Power of Dowel Setting Machine Operator No January 02 9:36pm Advance Directive Response Recorded Date/ Time Living Will No January 13, 2023 6:20am Power of Dowel Setting Machine Operator No January 13 6:20am Advance Directive Response Recorded Date/ Time Living Will No February 03, 2023 6: 17am Power of Dowel Setting Machine Operator No February 03, 2023 6:17am Advance Directive Response Recorded Date/ Time Living Will No February 28, 2023 8 :00pm Power of Dowel Setting Machine Operator No February 28, 2023 8:00pm Advance Directive Response Recorded Date/ Time Living Will No June 05 6:46pm Power of Dowel Setting Machine Operator No June 05, 2023 6:46pm Advance Directive Response Recorded Date/ Time Living Will No December 25, 2023 3:48am Power of Dowel Setting Machine Operator No December 24 3:48am Advance Directive Response Recorded Date/ Time Living Will No December 06, 2024 2:33pm Do you have a Healthcare Power of Dowel Setting Machine Operator? No December 06, 2024 2:33pm Do you have a Healthcare Power of Dowel Setting Machine Operator? No March 19, 2025 12:45am Reason for Referral Specialty Diagnoses / Procedures Referred By Rosa M cano Referred To Contact Family Medicine Diagnoses Acute nonintractable headache, unspecified headache type Tereso Kuo MD [address] [place] [address] [place] [address] Referral ID Status Reason Start Date Expiration Date V isits Requested Visits Authorized [id number] Open Specialty Services Required 10/04/2021 10/04/2022 1 1 Scheduling Instructions [address] Dawkins [address] [place] [address] Chief Complaint and Reason for Visit Chief [...] n/v abd pain Chief Complaint acid reflux Chief Complaint Admit Date SINUS PRESSURE December 06, 2024 12:3 3pm n/v March 19, 2025 12:4 1am Additional Source Comments (unrecognized sect ion and content) No Status Records FoundNo Status Records FoundNo Status Records FoundNo Status Records FoundNo Status Records FoundNo Status Records Found INFORMATION SOURCE (unrecogn ized section and content) DATE CREATED AUTHOR 03/30/2018 [employer] DATE CREATED AUTHOR AUTHOR'S ORGANIZ ATION 10/27/2020 [employer] 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 Mouth Sores [...] 2,000 mg, Oral, DAILY, First dose on Wed03/17/22 at 2044, Until Discontinued, Antimicrobial Indications: STD infection 2043 (Due) ondansetron (ZOFRAN-ODT) disintegrating tablet 4 mg 4 mg, Oral, ONCE, 1 dose, On Wed03/17/22 at 2043 2043 (Due) Scheduled Medication Order 03/26/2022 03/27/2022 03/28/2022 [...] or prosecute any alcohol or drug abuse patient.[facility] the event this information is protected by the Federal Confidentiality of Alcohol and Drug Abuse Patient Records regulations: The Federal rules restrict any use of the information to criminally investigate or prosecute any alcohol or drug abuse patient.[facility] the event this information is protected by the Federal Confidentiality of Alcohol and Drug Abuse Patient Records regulations: The Federal rules restrict any use of the information to criminally investigate or prosecute any alcohol or drug abuse patient.[facility] the event this information is protected by the Federal Confidentiality of Alcohol and Drug Abuse Patient Records regulations: The Federal rules restrict any use of the information to criminally investigate or prosecute any alcohol or drug abuse patient.[facility] the event this information is protected by the Federal Confidentiality of Alcohol and Drug Abuse Patient Records regulations: The Federal rules restrict any use of the information to criminally investigate or prosecute any alcohol or drug abuse patient.[facility] the event this information is protected by the Federal Confidentiality of Alcohol and Drug Abuse Patient Records regulations: The Federal rules restrict any use of the information to criminally investigate or prosecute any alcohol or drug abuse patient.[facility] Care Teams (unrecognized sec tion and content) 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 Specialty Start Date End Date Dalton Art DO [address] [address] PCP - General Family Practice 10/05/21 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 Gilberto Schroeder MD Family Provider Active NEVAEH JESSICA Primary Care Provider Active Team Status: Inactive [...] Status: Inactive Member Role Status Dates Dr. Mihcel Elena MD Emergency Provider Active NEVAEH, JESSICA Primary Care Provider Active Team Status: Inactive Member Role Status Dates Dr. Michel Elena MD Attending Provider, Emergency Provi emil Active NEVAEH, JESSICA Primary Care Provider Active Team Status: Inactive Member Role Status Dates NEVAEH, JESSICA Primary Care Provider Active Dr. Marco Antonio Cintron MD Emergency Provider Active Team Status: Inactive Member Role Status Dates NEVAEH, JESSICA Primary Care Provider Active Dr. Matt Whatley DO Emergency Provider Active Team Status: Active Member Role Status Dates Dr. Gilberto Schroeder MD Family Provider Active No Primary Care Physician Primary Care Provider Active Team Status: Inactive Member Role Status Dates Dr. Nolan Brady DO Emergency Provider Active No Primary Care Physician Primary Care Provider Active Team Status: Inactive Member Role Status Dates NEVAEH, JESSICA Primary Care Provider Active Dr. Marco Antonio Cintron MD Attending Provider, Emergency Pro vider Active Team Status: Inactive Member Role Status Dates NEVAEH, JESSICA Primary Care Provider Active Dr. Matt [...] Dr. 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 Specialty Start Date End Date Dalton Art DO [address] [place] [address] PCP - General Family Medicine 10/05/21 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 Specialty Start Date End Date Dalton Art DO [address] [place] [id number] PCP - General Family Medicine 10/05/21 Vania Szymanski, [employer]STARCHER AND T[employer] RANGE FEEDER [address] [place], [place] [address] Tire Inspector Family Medicine 09/10/24 Royer Green, S[employer] M[employer]ER.[employer]ARCH[employer] AND [employer] [place] [address] Tire Inspector Family Medicine 11/14/24 Team Status: Active Member Role Status Dates No Primary Care Physician Primary Care Provider Active Team Status: Inactive Member Role Status Dates No Primary Care Physician Primary Care Provider Active Start: December 06, 2024 End: December 06, 2024 Dr. Marco Antonio Cintron MD Attending Provider Active S tart: December 06, 2024 End: December 06, 2024 Dr. Marco Antonio Cintron MD Emergency Provider Active S tart: December 06, 2024 End: December 06, 2024 Team Status: Inactive Member Role Status Dates No Primary Care Physician Primary Care Provider Active Start: March 19, 2025 End: March 19, 2025 Dr. Marco Antonio Cintron MD Emergency Provider Active S tart: March 19, 2025 End: March 19, 2025 Care Team (unrecognized sect ion and content) Personnel Name: NEVAEH FRAGA MD Address: Address: [address] [place] [address] Care Team Personnel Name: NEVAEH FRAGA MD Member Role: Primary Care Physician Address: Address: [address] [place] [address] Name: Lisa Szymanski RN Position: AO RN Member Role: RN Name: MCKAYLA CARSON DO Position: ED Physician Member Role: Attending Physician Address: Address: [address] Care Team Related Persons Name: URCONIS, [...] URCONIS, TREVIN Name: URCONIS, TREVIN Name: URCONIS, TRVEIN Name: URCONIS, TREVIN Name: URCONIS, TREVIN Name: [...] BE BASED ON THE PRIMARY CLINICAL RECORDS. [employer] [facility]. provides no warranty or guarantee of the accuracy or completeness of information in this document.
--- NOTE | 2025-04-05 02:40 | EX.ED.GENINJ ---
HPI History of Present Illness Chief Complaint: Laceration Narrative Narrative: Chief complaint and HPI: Close head injury. 39-year-old male presents for evaluation of closed head injury. Patient states he accidentally walked into a metal pole prior to arrival. Hit his frontal forehead. Denies LOC. Not on blood thinners. Patient obtained an abrasion to the anterior forehead. Not up-to-date on tetanus. Patient states he has also been having an extra piece of skin in the roof of his mouth that has been bothering him and wanted me to evaluate it. He denies any fever, chills, shortness of breath, chest pain, abdominal pain, nausea, vomiting. Denies any injury elsewhere. Review of systems: See HPI Medications: As listed on the chart Allergies: As listed on the chart PFSH: Per chart Gen: A&O x3, NAD Head: Normocephalic, small abrasion to the anterior forehead-no laceration that needs repaired Eyes: No sclera icterus, conjunctiva clear, PERRL, EOMI ENT: TMs clear BL, moist mucous membranes, face atraumatic without swelling/lacerations/blood in the mouth or the nares, No nasal septal hematoma, no facial tenderness, a dentulous, patient has a small piece of his gum that is hanging down from his top gum this is likely what he is feeling-no gingivitis or infection-nontender Neck: Trachea midline, No JVD, Nontender full range of motion, CV: RRR, no murmurs, no chest wall TTP Resp: Lungs CTA BL, no w/r/c GI: Abd soft, non-distended, non-tender, no r/r/g Musc: Full ROM, no deformity, no spinal TTP, no rafita step-offs Skin: Warm, dry, intact Neuro: Alert, oriented, grossly intact, sensation intact, GCS 15 Psych: Cooperative, appropriate mood and affect [facility] Medical History Acute sinusitis, unspecified Pancreatitis Chronic GERD Tobacco use Anxiety Home Medications ?Medication ?Instructions ?Recorded ?Last Taken ?Type buspirone 5 mg tablet 10 mg PO TID PRN Anxiety 06/10/17 04/05/25 History famotidine 40 mg tablet (Pepcid) 40 mg PO QHS 06/10/17 Unknown History quetiapine 25 mg tablet 25 mg PO TID 06/28/21 04/05/25 History ondansetron 4 mg disintegrating 4 mg PO Q8H PRN PRN Nausea #10 tabs 12/25/23 Unknown Rx tablet famotidine 20 mg tablet 20 mg PO BID 30 days #60 tabs 06/16/24 04/05/25 Rx sulfamethoxazole 800 1 tab PO BID #6 TABLETS 07/04/24 Unknown Rx mg-trimethoprim 160 mg tablet doxycycline monohydrate 100 mg 100 mg PO BID #14 CAPSULES 09/19/24 Unknown Rx capsule guaifenesin 1,200 mg tablet, 1,200 mg PO BID PRN congestion 7 10/13/24 Unknown Rx extended release 12 hr (Mucinex) days #14 tabs azithromycin 250 mg tablet See Rx Instructions PO .COMPLEX #6 12/06/24 Unknown Rx (Zithromax Z-Phillip) tabs ondansetron 4 mg disintegrating 4 mg PO Q6H PRN nausea and 03/19/25 Unknown Rx tablet vomiting #7 tabs Allergy/AdvReac Type Severity Reaction Status Date / Time Penicillins Allergy Unknown Verified 04/05/25 01:18 sumatriptan (From Imitrex) Allergy Unknown Verified 04/05/25 01:18 sumatriptan succinate (From Allergy Unknown Verified 04/05/25 01:18 Imitrex) amoxicillin (Amoxicillin) AdvReac Nausea/Vom/ Verified 04/05/25 01:18 Diarrhea Surgical History History of herniorrhaphy No significant past surgical history Social History household members: family Smoking Status: Current every day smoker tobacco type: cigarettes and e-cigarettes Smokeless tobacco user: chewing tobacco how long ago did patient quit smoking: Former cigarette tobacco use, now chew tobacco 2-3 wads daily. alcohol intake: never details: Patient states he currently is not drinking any alcoholic beverages substance use type: does not use EXAM Physical Exam Const Vital Signs: 04/05/25 01:14 Temperature 99.2 F H Temperature Source Oral Pulse Rate 98 Respiratory Rate 16 Blood Pressure 136/88 H Blood Pressure Mean 104 Pulse Ox 98 Oxygen Delivery Method Room Air MDM MDM MDM Narrative Medical decision making narrative: 39-year-old male presents for evaluation of closed head injury. Patient states he accidentally walked into a metal pole prior to arrival. Hit his frontal forehead. Denies LOC. Not on blood thinners. Patient obtained an abrasion to the anterior forehead. Not up-to-date on tetanus. Differential diagnosis includes but is not limited to closed head injury, abrasion, suspect less likely intracranial bleed, skull fracture, concussion. Abrasion cleaned. Tetanus updated. CT of the head ordered. CT of the head without any acute traumatic injury. On reevaluation, patient is asymptomatic. Patient is stable to discharge home. Given education on concussion. Follow-up with PCP. He confirmed understanding of plan. Impression: 1. Closed head injury 2. Forehead abrasion Radiography Diagnostic Testing: Clinical Impression(s) from Imaging Studies Brain CT 04/05/25 02:03 IMPRESSION: No acute intracranial findings Reading Location: [place] [address] Discharge Plan Triage Chief Complaint: Laceration ED Provider: Chidi Hermosillo Dx/Rx/DC Orders Clinical Impression: Closed head injury Instructions: After a Concussion, Concussion Dc, ED Head Injury (Adult) Prescriptions: No Action buspirone 5 MG tablet 10 mg PO TID PRN (Reason: Anxiety) famotidine [Pepcid] 40 MG tablet 40 mg PO QHS quetiapine 25 mg tablet 25 mg PO TID doxycycline monohydrate 100 mg capsule 100 mg PO BID Qty: 14 0RF azithromycin [Zithromax Z-Phillip] 250 mg tablet See Rx Instructions .ROUTE .COMPLEX Qty: 6 0RF Rx Instructions: For 250 mg dose pack: take 500 mg today (day 1), then 250 mg for 4 days (days 2-5) ondansetron [ondansetron] 4 mg tablet,disintegrating 4 mg PO Q8H PRN PRN (Reason: Nausea) Qty: 10 0RF famotidine 20 mg tablet 20 mg PO BID 30 Days Qty: 60 1RF sulfamethoxazole-trimethoprim 800-160 mg tablet 1 tab PO BID Qty: 6 0RF guaifenesin [Mucinex] 1,200 mg tablet extended release 12hr 1,200 mg PO BID PRN (Reason: congestion) 7 Days Qty: 14 0RF ondansetron 4 mg tablet,disintegrating 4 mg PO Q6H PRN (Reason: nausea and vomiting) Qty: 7 0RF Primary Care Provider: Care Physician,No Primary Referrals: Charbel Vela MD [Med Staff - Active Staff] - 3-5 Days Care Physician,No Primary [Primary Care Provider] - Activity Restrictions/Additional Instructions: Monitor for signs of infection of your abrasion. Follow-up with your primary care physician if you do not have 1 follow-up with the one provided above. Monitor for signs of concussion which we talked about. I also printed out some information on concussions if you develop one. Print Language: Tunisian Disposition Disposition: Home, Self Care
[2025-04-05 02:51] VITALS: BP 132/60; PULSE 72; RESP 16; TEMP 36.7; O2SAT 98
== END 2025-04-05 02:52 | disposition home or self-care (01) ==
PROVIDERS: Emergency Provider Surgery; Visit Provider Surgery
DX: S00.81XA Abrasion of other part of head, initial encounter (principal); F17.220 Nicotine dependence, chewing tobacco, uncomplicated; F17.210 Nicotine dependence, cigarettes, uncomplicated; Z79.899 Other long term (current) drug therapy; Z23 Encounter for immunization; X58.XXXA Exposure to other specified factors, initial encounter
CPT/HCPCS: 70450; 90471; 90715; 99282

== ENCOUNTER 2025-06-15 21:35 | Emergency (ER) | payer MEDICARE, MEDICAID, SELFPAY ==
[2025-06-15 21:35] VITALS: BP 139/109; PULSE 100; RESP 18; TEMP 37.1; O2SAT 99; BMI 23.7
--- OUTSIDE RECORDS SUMMARY | 2025-06-15 23:23 | XMS RPT_ITS | CCD ---
Author Organization [facility] CliniSywi Care Team Providers Care Analytical Chemist Name Role Phone HORTENSIAMILE METZ Colin Unavailable Unavailable ROLAND KUO M Unavailable [...] DR NEVAEH FRAGA MD Primary Care Physician Dalton Art DO Primary [...] Dalton Art DO Primary Care Provider Stephon COOKER PROCESS CHEESE.CLOTH PRINTING BACK TENDER, Vania Unavailable Peter COOKER PROCESS CHEESE.[employer]OTH PRINTING BACK TENDER, Royer Unavailable Care Physician, No Primary Primary Care Provider Unavailable Abdulaziz LOBO, Dr. Bernard Attending Provider [phone] Dr. Marco Antonio Cintron MD Emergency Provider [phone] Dr. Chidi Hermosillo DO Emergency Provider Nolan Brady Attending Unavailable Care Physician, No Primary Primary Care Unava ilable Provider, Ed Physician Attending Unavailab le Care Physician, No Primary Primary Care Unava ilable Care Physician, No Primary Primary Care Unava ilable Marco Antonio Cintron Attending Unavailable Care Physician, No Primary Primary Care Unava ilable Marco Antonio Cintron Attending Unavailable Care Physician, No Primary Primary Care Unava ilable Antwan Esparza Attending Unavailable Michel Elena Attending Unavailable Care Physician, No Primary Primary Care Unava ilable Care Physician, No Primary Primary Care Unava ilable Reodica, Alan Attending Unavailable Care Physician, No Primary Primary Care Unava ilable Matt Whatley Attending Unavailable Jaimee, Chidi Attending Unavailabl e Care Physician, No Primary Primary Care Unava ilable DALTON ART Primary Care Unavailable EMIR SIMONS Attending Unavailable DALTON ART Primary Care Unavailable Allergies Allergy Classification Reported Allergen(s) Allergy Type Date of Onset Reaction(s) Facility (20 sources) Amoxicillin; Translations: [AMOXICILLIN] Drug Allergy 10-04-19 17 Nausea/Vom/Navneet rrhea [facility] [employer] [facility] [employer] [facility] (20 sources) Penicillins; Translations: [PENICILLINS] Propensity to adverse reactions to drug (disorder) 07-20-20 14 Vomiting [facility] Repository (20 sources) SUMAtriptan; Translations: [SUMATRIPTAN] Drug Allergy 05-01-20 15 Other: See Comments [facility] Work Phone: (3 sources) Penicillin; Translations: [penicillins] Drug Allergy Rash [facility] (8 sources) Amoxicillin; Translations: [AMOXICILLIN (BULK)] Drug Allergy 11-23-19 15 Vomiting [facility] (16 sources) SUMAtriptan; Translations: [sumatriptan succinate] Drug Allergy 06-24-20 21 Unknown [facility] (4 sources) Sulfamethoxazole / Trimethoprim; Translations: [SULFAMETHOXAZOLE-T RIMETHOPRIM] Drug Allergy 11-19-19 24 Swelling [facility] (1 source) SUMAtriptan Drug Allergy 04-05-20 [facility] Repository Medications Current Medications Medication Drug Class(es) [...] for headache Start Date: 06/08/17 Status: Ordered [id number] 200 actuat albuterol 0.09 mg/actuat metered dose [...] Status: Ordered azithromycin 250 mg oral tablet (6 sources) Macrolide Antimicrobial Start: 12-06-2024 Azithromycin (Zithromax Z-Phillip) 250 mg tablet Active 0 PO .COMPLEX 6 0 December 06, 2024 1:00am For 250 mg dose pack: take 500 mg today (day 1), then 250 mg for 4 days (days 2-5) Start: 08-04-2023 End: 12-25-2023 Azithromycin 250 mg tablet D iscontinued 250 mg PO daily 12 August 04, 2023 12:00am December 25, 2023 3:44am 2 tablets today, then 1 tablet daily on days 2 through 11 Start: 03-17-2022 azithromycin ( ZITHROMAX) tablet 2,000 mg benzonatate 100 mg oral capsule (7 sources) Non-narcotic Antitussive Start: 04-27-2025 End: 05-04-2025 take 1 capsule by mouth three times daily as needed for cough benzonatate (TESSALON PERLE) 100 mg capsule Indications: Acute non-recurrent sinusitis, unspecified location Take 1 capsule by mouth three times a day as needed for cough for up to 7 days. 21 capsule 04/27/2025 05/04/2025 Active Start: 10-05-2021 End: 12-14-2024 take 2 capsules by mouth every eight hours as needed benzonatate (TESSALON PERLES) 100 mg capsule Indications: Viral URI with cough Take 2 capsules by mouth every 8 hours as needed. 60 capsule 10/05/2021 12/14/2024 Discontinued Comment on above: Take 2 capsules by [facility] every 8 hours as needed. busPIRone hydrochloride 15 mg oral tablet (20 [...] DAILY diphenhydrAMINE-maalox- lidocaine (BMX 1:1:1) 1:1:1 liqd (3 sources) Start: 11-19-2023 diphenhydrAMINE-maalox -lidocaine (BMX 1:1:1) 1:1:1 liqd Mix in equal amounts - 1 T every 2hrs as needed for mouth pain, Swish/swallow or expectorate. (8oz) 240 mL 11/19/2023 Active Start: 11-19-2023 diphenhydrAMIN M-btdjhw-cgrvhkyrw (BMX 1:1:1) 1:1:1 liqd Mix in equal amounts - 1 T every 2hrs as needed for mouth pain, Swish/swallow or expectorate. (8oz) 240 mL 0 11/19/2023 Active Comment on above: Mix in equal amounts - 1 T every 2hrs as needed for mouth pain, Swish/swallow or expectorate. (8oz) doxycycline hyclate 100 mg oral tablet (12 sources) Tetracycline-class Drug Start: End: take 1 tablet by mouth twice daily doxycycline (VIBRA-TABS) 100 mg tablet Indications: Acute non-recurrent sinusitis, unspecified location Take 1 tablet by mouth two times a day for 10 days. 20 tablet 04/27/2025 05/07/2025 Active Start: 09-19-2024 take 1 capsule by mo [facility] twice daily Doxycycline Monohydrate 100 mg capsule Active 100 mg PO TWICE A DAY 14 0 September 19, 2024 1:00am Start: 11-19-2023 End: 11-24-2023 take 1 tablet by mouth twice daily doxycycline (VIBRA-TABS) 100 mg tablet Take 1 tablet by mouth two times a day for 5 days. 10 tablet 0 11/19/2023 11/24/2023 Active Start: 01-03-2023 End: 08-04-2023 take 1 capsule by mouth twice daily Doxycycline Monohydrate 100 mg capsule Discontinued 100 mg PO TWICE A DAY 20 January 03, 2023 12:00am August 04, 2023 [...] propionate 0.05 mg/actuat metered dose nasal spray (9 sources) Corticosteroid Start: 2 take 1 spray(s) nasal route twice daily fluticasone (FLONASE ALLERGY RELIEF) 50 mcg/actuation nasal spray Indications: Viral URI with cough Use 1 Wilkinson in each nostril twice daily. 1 Each 10/05/2021 Active Start: 06-27-2017 take 1 dose nasal ro perry twice daily fluticasone 50 mcg/inh NASAL spray Dose = 1 spray(s), Nostril, each, BID, 0 Refill(s) Start Date: 06/27/17 Status: Ordered Comment on above: Use 1 Wilkinson in each nostril twice daily. fluticasone 50 mcg/inh NASAL spray (1 source) Start: 06-27-20 17 take 1 dose nasal route twice daily fluticasone 50 mcg/inh NASAL spray Dose = 1 spray(s), Nostril, each, BID, 0 Refill(s) Start Date: 06/27/17 Status: Ordered 12 hr guaiFENesin 1200 mg extended release oral tablet (2 sources) Start: 10-13-19 25 take 1 tablet by mouth twice daily as needed for congestion, then take 1 tablet by mouth every twelve hours as needed for congestion Guaifenesin (Mucinex) 1,200 mg tablet extended release 12hr Active 1200 mg PO TWICE A DAY as needed for congestion 14 7 0 October 13, 2024 4:06pm ibuprofen 200 mg oral tablet (8 sources) Nonsteroidal Anti-inflammatory Drug End: 05-02-20 22 take 4 tablets by mouth every six [...] 0 Active naproxen 500 mg oral tablet (9 sources) Nonsteroidal Anti-inflammatory Drug Start: 08-04-2015 take [...] HOURS as needed for nausea and vomiting 7 0 March 19, 2025 12:00am Start: 08-20-2022 End: 12-25-2023 take 1 tablet by mouth every eight hours as needed for nausea Ondansetron 4 mg tablet,disintegrating Discontinued 4 mg PO EVERY 8 HOURS NEEDED as needed for Nausea 10 February 28, 2023 12:00am June 05, 2023 [...] th every 8 hours as needed. Pancrelipase, Txd-Rpfg-Lirf, (CREON PO) (8 sources) Pancrelipase, Jje-Mqyv-Oslk, (CREON PO) Take by mouth 0 Active [...] mg / trimethoprim 160 mg oral tablet (2 sources) Dihydrofolate Reductase Inhibitor Antibacterial, Sulfonamide Antimicrobial Start: 07-04-2024 Sulfamethoxazole-T rimethoprim 800-160 mg tablet Active 1 {tbl} PO TWICE A DAY 6 0 July 04, 2024 12:00am triamcinolone acetonide 0.055 mg/actuat metered dose nasal spray (5 sources) Corticosteroid Start: 02-16-2022 take 2 spray(s) nasal route once daily triamcinolone (NASACORT ALLERGY 24HR) 55 MCG/ACT nasal inhaler 2 sprays by Each Nostril route daily 1 each 3 02/16/2022 Active Completed/Discontinued Medications Medication Drug Class(es) Dates Sig (Normalized) Sig (Original) amylase 14950 unt / lipase 3000 unt / protease 9500 unt delayed release oral capsule (17 sources) Start: 06-17-2021 End: 12-25-2023 take 7819-4671 capsules by mouth three times daily Zwkvmh-Slpvdayp-Mh ylase (Creon) 3,000-9,500- 15,000 unit Capsule,Delayed Release(Dr/Ec) Discontinued 1 NMA PO THREE TIMES A DAY June 29, 2021 12:00am December 25, 2023 3:45am Check with primary doctor with meals chlorhexidine gluconate 1.2 mg/ml mouthwash (6 sources) Start: 07-30-2015 End: 12-14-2024 Chlorhexidine Gluconate (PERIDEX) 0.12 % solution Use 15 mL as instructed twice daily. 60 mL 0 07/30/2015 12/14/2024 Discontinued Comment on above: Use 15 mL as instruc hardik twice daily. clindamycin 150 mg oral capsule (17 sources) Lincosamide Antibacterial Start: 07-09-2013 End: 11-05-2013 [...] 05, 2013 7:43am take 1 capsule by [facility] three times daily clindamycin (CLEOCIN) 300 MG capsule Take 300 mg by mouth 3 times daily 0 Active esomeprazole 20 mg delayed release oral capsule (18 sources) Proton Pump Inhibitor Start: 09-03-2022 End: 12-25-2023 take 1 capsule by mouth once daily Esomeprazole Magnesium (Nexium) 20 mg capsule,delayed release(DR/EC) Discontinued 20 mg PO DAILY 30 0 September 03, 2022 1:00am December 25, 2023 3:45am Start: 2015 End: 12-14-2024 take 1 capsule by mouth once daily esomeprazole magnesium (NEXIUM 24HR) 22.3 mg cpDR Take 1 capsule by mouth once daily. 30 capsule 11 2015 12/14/2024 Discontinued Comment on above: Take 1 capsule by mo [facility] once daily. FLUoxetine 20 mg oral capsule (6 sources) Serotonin Reuptake Inhibitor Start: 08-19-20 End: 12-15-19 take 1 capsule by mouth once daily FLUoxetine (PROZAC) 20 mg capsule Indications: Anxiety and depression Take 1 capsule by mouth once daily. 30 capsule 3 08/19/2015 12/14/2024 Discontinued Comment on above: Take 1 capsule by [facility] once daily. hydrOXYzine pamoate 50 [...] Comment on above: Take 1 capsule by [facility] once daily. lidocaine hydrochloride 20 mg/ml mucous membrane topical solution (4 sources) Antiarrhythmic, Amide Local Anesthetic Start: 07-04-2021 End: 02-16-2022 lidocaine viscous hcl (XYLOCAINE) 2 % SOLN solution Take 15 mLs by mouth as needed for Irritation 100 mL 0 07/04/2021 02/16/2022 Discontinued (LIST CLEANUP) melatonin 10 mg / vitamin b6 10 mg extended release oral tablet (15 sources) Start: 06-10-2017 End: 12-25-2023 take 1 [...] 3:45am promethazine hydrochloride 25 mg oral tablet (14 sources) Phenothiazine Start: 09-03-2022 End: 06-05-2023 take 1 tablet by mouth three times daily as needed for nausea and vomiting Promethazine 25 mg tablet Discontinued 25 mg PO THREE TIMES A DAY as needed for nausea and vomiting 10 0 September 03, 2022 1:00am June 05, 2023 6:50pm Start: 06-10-2017 take 25 mg by mouth every six hours as needed Promethazine Active 25 MG PO EVERY 6 HOURS NEEDED June 10, 2017 12:00am sucralfate 100 mg/ml oral suspension (19 sources) Aluminum Complex Start: 08-20-2022 End: 06-05-2023 take 1 mL by mouth three times daily as needed for pain Sucralfate (Carafate) 100 mg/mL suspension Discontinued 10 mL PO THREE TIMES A DAY as needed for epigastric pain 200 0 August 20, 2022 1:24pm June 05, 2023 [...] Cholinergic Nicotinic Agonist Start: 05-01-20 End: 12-15-19 Varenicline (CHANTIX) 0.5 mg (11)- 1 mg [...] Chronic Chronic obstructive pulmonary disease and bronchiectasis (11 sources) Bronchitis; Translations: [Bronchitis, not specified as acute or chronic] Onset: Episodic Developmental disorders (7 sources) Developmental academic disorder; Translations: [Developmental disorder of scholastic skills, unspecified] 07-20-2014 Chronic Diseases of mouth; excluding dental (1 source) Oral lesion; Translations: [Other lesions of oral mucosa] 11-19-2023 Episodic Disorders of teeth and jaw (15 sources) Gingivitis; Translations: [Chronic gingivitis, plaque induced] 10-29-2015 Chronic E Codes: Natural/environment (15 sources) Bitten or stung by nonvenomous insect and other nonvenomous arthropods, initial encounter; Translations: [Bedbug bite] 10-13-2015 Episodic Esophageal disorders (20 sources) Acid reflux; Translations: [Gastroesophageal reflux disease] 10-28-2015 Chronic Fever of unknown origin (15 sources) Fever with chills; Translations: [Fever, unspecified] 10-29-2015 Episodic Gastritis and duodenitis (15 sources) Gastritis; Translations: [Gastritis, unspecified, without bleeding] 09-03-2022 Episodic Genitourinary symptoms and ill-defined conditions (5 sources) Dysuria; Translations: [Dysuria] Episodic Headache, including migraine (20 sources) Headache; Translations: [Acute headache] Onset: Episodic Immunizations and screening for infectious disease (15 sources) Patient encounter status; Translations: [Encounter for screening for infections with a predominantly sexual mode of transmission] 01-13-2015 Episodic Nausea and vomiting (20 sources) Nausea; Translations: [Nausea and vomiting] Onset: 08-18-2016 Episodic Nonspecific chest pain (15 sources) Atypical chest pain; Translations: [Other chest pain] 04-27-2014 Episodic Other ear and sense organ disorders (3 sources) Unilateral earache 04-02-2016 Episodic Other gastrointestinal disorders (15 sources) Diarrhea; Translations: [Diarrhea, unspecified] 08-09-2015 Episodic Other gastrointestinal disorders (10 sources) Swallowing painful; Translations: [Dysphagia, unspecified] 10-18-2022 Episodic Other gastrointestinal disorders (3 sources) History of gastroesophageal reflux disease; Translations: [Personal history of other diseases of the digestive system] 12-25-2023 Episodic Other gastrointestinal disorders (2 sources) Constipation; Translations: [Constipation, unspecified] 08-28-2024 Episodic Other injuries and conditions due to external causes (15 sources) Muscle strain; Translations: [Other injury of unspecified body region, initial encounter] 04-16-2020 Episodic Other injuries and conditions due to external causes (1 source) Closed injury of head; Translations: [Unspecified injury of head, initial encounter] 04-05-2025 Episodic Other injuries and conditions due to external causes (1 source) Unspecified injury of head, initial encounter; Translations: [Unspecified injury of head, initial encounter] Onset: 5 Episodic Other liver diseases (15 sources) Elevated liver enzymes level; Translations: [High liver transaminase level] 07-02-2021 Episodic Other lower respiratory disease (15 sources) Hypoxia; Translations: [Hypoxemia] 07-02-2021 Episodic Other lower respiratory disease (2 sources) Hemoptysis; Translations: [Hemoptysis] 09-27-2024 Episodic Other nervous system disorders (12 sources) H/O: migraine; Translations: [Personal history of other diseases of the nervous system and sense organs] 09-11-2022 Episodic Other upper respiratory disease (1 source) Allergic rhinitis due to pollen; Translations: [Allergic rhinitis due to pollen] Chronic Other upper respiratory disease (7 sources) Seasonal allergy; Translations: [Other seasonal allergic rhinitis] 07-20-2014 Chronic Other upper respiratory disease (2 sources) Allergic rhinitis; Translations: [Allergic rhinitis, unspecified] 10-21-2024 Chronic Other upper respiratory infections (1 source) Bacterial sinusitis; Translations: [Chronic sinusitis, unspecified] 11-19-2023 Chronic Other upper respiratory infections (20 sources) Viral upper respiratory tract infection; Translations: [Acute upper respiratory infection, unspecified] Onset: 5 05-17-2014 Episodic Residual codes; unclassified (2 sources) Tobacco use and exposure - finding; Translations: [Tobacco use] 06-24-2024 Episodic Skin and subcutaneous tissue infections (20 sources) Furuncle; Translations: [Abscess] 10-09-2017 Episodic Substance-related disorders (7 sources) Tobacco user; Translations: [Nicotine dependence, unspecified, uncomplicated] 07-20-2014 Chronic Unclassified (1 source) Unknown / UNK(Unknown) Onset: 7 Unclassified (1 source) Cough, unspecified; Translations: [Cough, unspecified] Onset: 5 Urinary tract infections (4 sources) Urinary tract infectious disease; Translations: [Urinary tract infection, site not specified] Onset: 2 Episodic Viral infection (20 sources) COVID-19; Translations: [Pneumonia due to COVID-19 virus] 07-02-2021 Episodic Past or Other Problems Problem Classification Problem Date Documented Da te Episodic/Chronic Abdominal pain (20 sources) Abdominal pain; Translations: [Epigastric pain] Onset: 07-26-2024 06-25-2016 Episodic Comment on above: nausea and vomiting Disorders of teeth and jaw (20 sources) Dental caries; Translations: [Dental caries, unspecified] Onset: 08-05-2015 08-05-2015 Episodic Other upper respiratory disease (1 source) Nasal [...] Name Value Interpretation Reference Range Facility OV 04-27-2025 CNOV Office Visit ([facility]) -------- GILBERTO JOHNSON ([id number]) 1985 M Date Time Provider Department 04/27/25 6:15 PM EMIR SIMONS During your visit today, we recorded the following information about you: Temperature Pulse Respiration Blood pressure 97.8 degrees 83/minute 18/minute 141/81 Weight 70 kg Emir Simons PA-C 04/27/2025 6:40 PM Signed [facility] Subjective Gilbertozack Johnson is a 39 year old male. Patient presents with: Sore Throat: X1.5 weeks Patient is a 39-year-old male who complains of ongoing congestion, sinus pressure, sore throat and cough that he has been experiencing for the past 1-1/2 weeks. Patient reports no fever, chills or myalgia. Sore Throat Associated symptoms include congestion and coughing. Review of Systems HENT: Positive for congestion, postnasal drip and sore throat. Respiratory: Positive for cough. All other systems reviewed and are negative. Objective BP 141/81 Pulse 83 Temp 36.6 ?C (97.8 ?F) Resp 18 Wt 70 kg (154 lb 5.2 oz) SpO2 96% BMI 23.46 kg/m? Physical Exam Vitals and nursing note reviewed. Constitutional: Appearance: Normal appearance. He is normal weight. HENT: Head: Normocephalic and atraumatic. Right Ear: Tympanic membrane, ear canal and external ear normal. Left Ear: Tympanic membrane, ear canal and external ear normal. Nose: Nose normal. Mouth/Throat: Mouth: Mucous membranes are moist. Pharynx: Oropharynx is clear. Eyes: Extraocular Movements: Extraocular movements intact. Conjunctiva/sclera : Conjunctivae normal. Pupils: Pupils are equal, round, and reactive to light. Cardiovascular: Rate and Rhythm: Normal rate and regular rhythm. Pulses: Normal pulses. Heart sounds: Normal heart sounds. Pulmonary: Effort: Pulmonary effort is normal. Breath sounds: Normal breath sounds. Musculoskeletal: Cervical back: Normal range of motion and neck supple. Skin: General: Skin is warm and dry. Capillary Refill: Capillary refill takes less than 2 seconds. Neurological: General: No focal deficit present. Mental Status: He is alert and oriented to person, place, and time. Psychiatric: Mood and Affect: Mood normal. Behavior: Behavior normal. Thought Content: Thought content normal. Judgment: Judgment normal. MDM Physical exam findings as noted above. Due to documented allergy to penicillin, patient was provided with prescriptions for doxycycline 100 mg and Tessalon 100 mg. Supportive care instructions were discussed the patient verbalizes good understanding of same. CLINICAL IMPRESSION: Acute Sinusitis ASSESSMENT/PLAN: 1. Acute non-recurrent sinusitis, unspecified location - ICD9: 461.9, ICD10: J01.90 - DOXYCYCLINE HYCLATE 100 MG TABLET - BENZONATATE 100 MG [facility] Risk of Complications, Morbidity, and/or Mortality Presenting problems: low Diagnostic procedures: low Management options: edith Simons PA-C Allergies As of Date: 04/27/2025 Noted Allergy Reaction AMOXICILLIN (BULK) 11/23/2014 11 - Vomiting IMITREX (SUMATRIPTAN) 05/01/2015 14 - Other: See Comments Comments: Lost memory PENICILLINS 07/20/2014 11 - Vomiting SULFAMETHOXAZOLE-T RIMETHOPRIM 11/19/2023 7 - Swelling Date Reviewed: 04/27/2025 Reviewed by: Heidi Christianson MA - Fully Assessed Reason for Visit: Sore Throat [200] Cmt: X1.5 weeks Primary Visit Diagnosis:Acute non-recurrent sinusitis, unspecified location [J01.90] Order(s):doxycycli ne (VIBRA-TABS) 100 mg tabletTake 1 tablet by mouth two times a day for 10 days.Disp: 20 tabletRfl: 0 benzonatate (TESSALON PERLE) 100 mg capsuleTake 1 capsule by mouth three times a day as needed for cough for up to 7 days.Disp: 21 capsuleRfl: 0 Prescriptions as of 04/27/2025 - doxycycline (VIBRA-TABS) 100 mg tablet Take 1 tablet by mouth two times a day for 10 days. - benzonatate (TESSALON PERLE) 100 mg capsule Take 1 capsule by mouth three times a day as needed for cough for up to 7 days. - diphenhydrAMINE-ma alox-lidocaine (BMX 1:1:1) 1:1:1 liqd [...] RELIEF) 50 mcg/actuation nasal spray Use 1 Wilkinson in each nostril twice daily. - loratadine (CLARITIN) 10 mg tablet Take 1 tablet by mouth once daily. - naproxen (NAPROSYN) 500 mg tablet Take 1 tablet by mouth twice daily as needed (pain/inflammation , take with food.). Problem List As Of Date 04/27/2025 Noted Resolved Seasonal allergies [J30.2] GERD (gastroesophageal reflux disease) [K21.9] Tobacco use disorder [F17.200] Headache [R51] Learning disabilit (more content not included)... Normal [facility] Brain/Head without Contrasto n 04-05-2025 Brain/Head without Contrast [facility] [address] [place] [address] Brain/Head without Contrast MR#: [id number] Acct: [id number] Name: GILBERTO JOHNSON Rep #: [id number] : 1985 M 39 From: Nabeel Foster MD PCP: Care Physician,No Primary Status: REG ER Study: Brain/Head without Contrast Date of Exam: 12/26 Exam# [id number] Ordering Dr: Noe Hermosillo DO PROCEDURE: BRAIN/HEAD WITHOUT CONTRAST 04/05/2025 REASON FOR EXAM: CLOSE HEAD INJURY TECHNIQUE: BRAIN/HEAD WITHOUT CONTRAST Coronal and Sagittal reconstruction series were provided. One or more dose reduction techniques were used (e.g., Automated exposure control, adjustment of the mA and/or kV according to patient size, use of iterative reconstruction technique. RADIATION DOSE SUMMARY: CTDlvol: 45 mGy DLP: 830 mGycm COMPARISON: No FINDINGS: No abnormal brain densities. No intracranial hemorrhage. No hydrocephalus or midline shift. Small posterior scalp swelling. Unremarkable orbits. No skull fracture. Clear sinuses. CT/Brain/Head without Contrast IMPRESSION: No acute intracranial findings Reading Location: [place] [address] CC: Dr. Chidi Hermosillo DO; No Primary Care Physician Physician Office Assistant: Signed Normal [facility] Emergency Department Summary on 04-05-2025 Emergency Department Summary [facility] Medical Records Department [address] [place] [address] Emergency Department Summary 04/05/25 MR#: [id number] Acct: [id number] Name: GILBERTO JOHNSON Rep #: [id number] : 1985 39 From: Chidi Hermosillo DO PCP: Care Physician,No Primary Status:REG ER Location: ED HPI History of Present Illness Chief Complaint: Laceration Narrative Narrative: Chief complaint and HPI: Close head injury. 39-year-old male presents for evaluation of closed head injury. Patient states he accidentally walked into a metal pole prior to arrival. Hit his frontal forehead. Denies LOC. Not on blood thinners. Patient obtained an abrasion to the anterior forehead. Not up-to-date on tetanus. Patient states he has also been having an extra piece of skin in the roof of his mouth that has been bothering him and wanted me to evaluate it. He denies any fever, chills, shortness of breath, chest pain, abdominal pain, nausea, vomiting. Denies any injury elsewhere. Review of systems: See HPI Medications: As listed on the chart Allergies: As listed on the chart PFSH: Per chart Gen: A O x3, NAD Head: Normocephalic, small abrasion to the anterior forehead-no laceration that needs repaired Eyes: No sclera icterus, conjunctiva clear, PERRL, EOMI ENT: TMs clear BL, moist mucous membranes, face atraumatic without swelling/laceratio ns/blood in the mouth or the nares, No nasal septal hematoma, no facial tenderness, a dentulous, patient has a small piece of his gum that is hanging down from his top gum this is likely what he is feeling-no gingivitis or infection-nontende r Neck: Trachea midline, No JVD, Nontender full range of motion, CV: RRR, no murmurs, no chest wall TTP Resp: Lungs CTA BL, no w/r/c GI: Abd soft, non-distended, non-tender, no r/r/g Musc: Full ROM, no deformity, no spinal TTP, no rafita step-offs Skin: Warm, dry, intact Neuro: Alert, oriented, grossly intact, sensation intact, GCS 15 Psych: Cooperative, appropriate mood and affect [facility] Medical History Acute sinusitis, unspecified Pancreatitis Chronic GERD Tobacco use Anxiety Home Medications ???Medication ???Instructions ???Recorded ???Last Taken ???Type buspirone 5 mg tablet 10 mg PO TID PRN Anxiety 06/10/17 04/05/25 History famotidine 40 mg tablet (Pepcid) 40 mg PO QHS 06/10/17 Unknown Hist ory quetiapine 25 mg tablet 25 mg PO TID 06/28/21 04/05/25 His tory ondansetron 4 mg disintegrating 4 mg PO Q8H PRN PRN Nausea #10 tab s 12/25/23 Unknown Rx tablet famotidine 20 mg tablet 20 mg PO BID 30 days #60 tabs 06/0404/05/25 Rx sulfamethoxazole 800 1 tab PO BID [...] Date / Time Penicillins Allergy Unknown Verified 04/05/25 01:18 sumatriptan (From Imitrex) Allergy Unknown Verified 04/05/25 01:18 sumatriptan succinate (From Allergy Unknown Verified 04/05/25 01:18 Imitrex) amoxicillin (Amoxicillin) AdvReac Nausea/Vom/ Verified 04/05/25 01:18 Diarrhea Surgical History History of herniorrhaphy No [...] type: does not use EXAM Physical Exam Const Vital Signs: 04/05/25 01:14 Temperature 99.2 F H Temperature Source Oral Pulse Rate 98 Respiratory Rate 16 Blood Pressure 136/88 H Blood Pressure Mean 104 Pulse Ox 98 Oxygen Delivery Method Room Air MDM MDM MDM Narrative Medical decision making narrative: 39-year-old male presents for evaluation of closed head injury. Patient states he accidentally walked into a metal pole prior to arrival. Hit his frontal forehead. Denies LOC. Not on blood thinners. Patient obtained an abrasion to the anterior forehead. Not up-to-date on tetanus. Differential navneet (more content not included)... Normal [facility] Emergency Department Summary on 03-19-2025 Emergency Department Summary [facility] Medical Records Department [address] [place] [address] Emergency Department Summary 03/19/25 MR#: [id number] Acct: [id number] Name: GILBERTO JOHNSON Rep #: [id number] : 1985 39 From: Marco Antonio Cintron [...] similar symptoms: Yes Recent Illness/Hospitaliz ation: No [facility] Medical History Acute sinusitis, unspecified Pancreatitis Chronic [...] 1 tab PO BID #6 TABLETS 10/01/24 U nknown Rx mg-trimethoprim 160 mg tablet [...] 91 Respirat (more content not included)... [facility] Office Visit (UCWSTR) -------- GILBERTO JOHNSON ([id number]) 1985 M Date Time Provider Department 12/14/24 6:45 PM ALEX LANDERS [facility] During your visit today, we recorded the following information about you: Temperature Pulse Respiration Blood pressure 97.9 degrees 101/minute 16/minute 122/74 Weight 70.5 kg Alex Landers MD 12/14/2024 7:08 PM Signed [facility] Subjective Gilberto Johnson is a [...] RELIEF) 50 mcg/actuation nasal spray Use 1 Wilkinson in each nostril twice daily. - loratadine [...] Varenicline (RUANO (more content not included)... Normal [facility] Emergency Department Summary on 12-06-2024 Emergency Department Summary [facility] Medical Records Department [address] [place] [address] Emergency Department Summary 12/06/24 MR#: [id number] Acct: [id number] Name: GILBERTO JOHNSON Rep #: [id number] : 1985 39 From: Marco Antonio Cintron [...] Benign exam. (more content not included)... Normal [facility] Emergency Department Summary on 10-13-2024 Emergency Department Summary [facility] Medical Records Department [address] [place] [address] Emergency Department Summary 10/13/24 MR#: [id number] Acct: [id number] Name: GILBERTO JOHNSON Rep #: [id number] : 1985 39 From: Antwan Jaimes PCP: [...] he stopped taking his cetirizine for allergies. [facility] Medical History Acute sinusitis, unspecified Pancreatitis Chronic [...] stable condition. (more content not included)... Normal [facility] Chest PA and Lateralon 09-19 Chest PA and Lateral [facility] Imaging Services [address] [place] [address] Chest PA and Lateral MR#: [id number] Acct: [id number] Name: GILBERTO JOHNSON Rep #: [id number] : 1985 M 39 From: Derrek Shepard MD PCP: Care Physician,No Primary Status: REG ER Study: Chest PA and Lateral Date of Exam: 09/19/24 Exam# [id number] Ordering Dr: Michel Elena MD [id number] EXAM: XR CHEST, 2 VIEWS CLINICAL [...] Michel Elena MD; No Primary Care Physician Physician Office Assistant: Signed Normal [facility] Emergency Department Summary on 09-19-2024 Emergency Department Summary [facility] Medical Records Department [address] [place] [address] Emergency Department Summary 09/19/24 MR#: [id number] Acct: [id number] Name: GILBERTO JOHNSON Rep #: [id number] : 1985 39 From: Michel Elena MD [...] toxic. Genera (more content not included)... Normal [facility]domen [facility] Cheston [facility] Chest [facility] Imaging Services [address] [place] [address] Acute [facility]domen [employer] Chest MR#: [id number] Acct: [id number] Name: GILBERTO JOHNSON Rep #: [id number] : 1985 M 39 From: Robert Rhoades PCP: Care Physician,No Primary Status: REG ER Study: Acute Abdomen Inc Chest Date of Exam: 08/20/24 Exam# [id number] Ordering Dr: Alan Begum MD [id number] STUDY: X-RAY - ACUTE ABDOMINAL SERIES [...] Alan Begum MD; No Primary Care Physician Physician Office Assistant: Signed Normal [facility] Emergency Department Summary on 08-20-2024 Emergency Department Summary [facility] Medical Records Department [address] [place] [address] Emergency Department Summary 08/20/24 MR#: [id number] Acct: [id number] Name: GILBERTO JOHNSON Rep #: [id number] : 1985 39 From: Alan Begum MD [...] is more stool present in his colon. [facility] Medical History Acute sinusitis, unspecified Pancreatitis Chronic [...] negative n (more content not included)... Normal [facility] Urinalysis, Completeon 08-20 BACTERIA 1+ /hpf Normal None Seen [facility] Comment on above: Order Comment: DAWOOD CTOR TO SPECIFY Performed By: #### L 400.0001 #### [facility] [address] [place], [address] RBC 0-5 SEEN Normal 0-5 [facility] Comment on above: Order Comment: DAWOOD CTOR TO SPECIFY Performed By: #### L 400.0001 #### [facility] [address] [place], [address] EPI,SQUAMOUS 0-5 SEEN Normal 0-5 [facility] Comment on above: Order Comment: DAWOOD CTOR TO SPECIFY Performed By: #### L 400.0001 #### [facility] [address] [place], [address] Mucus Ql (Urine sed) 0 SEEN Normal [facility] Comment on above: Order Comment: DAWOOD CTOR TO SPECIFY Performed By: #### L 400.0001 #### [facility] [address] [place], [address] WBC 0 SEEN Normal 0-5 [facility] Comment on above: Order Comment: DAWOOD CTOR TO SPECIFY Performed By: #### L 400.0001 #### [facility] [address] [place], [address] Urine Cultureon 07-05-2024 [facility] Culture exhibits no growth. Normal [facility] Comment on above: Performed By: #### M 100.2200 #### [facility] [address] [place], [address] CBC W/Diff, Automatedon 10-0 Absolute Neut Normal 2.0-7.7 [facility] Comment on above: Performed By: #### L 500.4050, L100.0100 #### [facility] [address] [place], [address] HCT Normal 40-54 [facility] Comment on above: Performed By: #### L 500.4050, L100.0100 #### [facility] [address] [place], [address] HGB Normal 13.0-16.5 [facility] Comment on above: Performed By: #### L 500.4050, L100.0100 #### [facility] [address] [place], [address] MCH Normal 27.0-32.0 [facility] Comment on above: Performed By: #### L 500.4050, L100.0100 #### [facility] [address] [place], [address] MCHC Normal 32-36 [facility] Comment on above: Performed By: #### L 500.4050, L100.0100 #### [facility] [address] [place], [address] MCV Normal 80-94 [facility] Comment on above: Performed By: #### L 500.4050, L100.0100 #### [facility] [address] [place], [address] NEUT% Normal 47-70 [facility] Comment on above: Performed By: #### L 500.4050, L100.0100 #### [facility] [address] [place], [address] PLT Normal 150-450 [facility] Comment on above: Performed By: #### L 500.4050, L100.0100 #### [facility] [address] [place], [address] RBC Normal 4.6-6.2 [facility] Comment on above: Performed By: #### L 500.4050, L100.0100 #### [facility] [address] [place], [address] RDW CV Normal 11.6-14.6 [facility] Comment on above: Performed By: #### L 500.4050, L100.0100 #### [facility] [address] [place], [address] RDW SD Normal 35.1-43.9 [facility] Comment on above: Performed By: #### L 500.4050, L100.0100 #### [facility] [address] [place], [address] WBC Normal 4.4-11.0 [facility] Comment on above: Performed By: #### L 500.4050, L100.0100 #### [facility] [address] [place], [address] Comprehensive Metabolic Prof ilon 07-04-2024 ALB Normal 3.2-5.0 [facility] Comment on above: Result Comment: GREGORY ENT DISCHARGED-NO SPECIMEN REC'D Performed By: #### L 500.4050, L100.0100 #### [facility] [address] [place], [address] ALK P Normal 45-117 [facility] Comment on above: Result Comment: GREGORY ENT DISCHARGED-NO SPECIMEN REC'D Performed By: #### L 500.4050, L100.0100 #### [facility] [address] [place], [address] ALT Normal 16-61 [facility] Comment on above: Result Comment: GREGORY ENT DISCHARGED-NO SPECIMEN REC'D Performed By: #### L 500.4050, L100.0100 #### [facility] [address] [place], [address] AST Normal 15-37 [facility] Comment on above: Result Comment: GREGORY ENT DISCHARGED-NO SPECIMEN REC'D Performed By: #### L 500.4050, L100.0100 #### [facility] [address] [place], [address] BUN Normal 7-18 [facility] Comment on above: Result Comment: GREGORY ENT DISCHARGED-NO SPECIMEN REC'D Performed By: #### L 500.4050, L100.0100 #### [facility] [address] [place], [address] BUN/CRE Normal 10-20 [facility] Comment on above: Result Comment: GREGORY ENT DISCHARGED-NO SPECIMEN REC'D Performed By: #### L 500.4050, L100.0100 #### [facility] [address] [place], [address] CA,Total Normal 8.5-10.1 [facility] Comment on above: Result Comment: GREGORY ENT DISCHARGED-NO SPECIMEN REC'D Performed By: #### L 500.4050, L100.0100 #### [facility] [address] [place], [address] CL Normal 98-107 [facility] Comment on above: Result Comment: GREGORY ENT DISCHARGED-NO SPECIMEN REC'D Performed By: #### L 500.4050, L100.0100 #### [facility] [address] [place], [address] CO2 Normal 21.0-32.0 [facility] Comment on above: Result Comment: GREGORY ENT DISCHARGED-NO SPECIMEN REC'D Performed By: #### L 500.4050, L100.0100 #### [facility] [address] [place], [address] CREAT,SERUM Normal 0.70-1.30 [facility] Comment on above: Result Comment: GREGORY ENT DISCHARGED-NO SPECIMEN REC'D Performed By: #### L 500.4050, L100.0100 #### [facility] [address] [place], [address] EST GFR Normal >60 [facility] Comment on above: Result Comment: GREGORY ENT DISCHARGED-NO SPECIMEN REC'D Performed By: #### L 500.4050, L100.0100 #### [facility] [address] [place], [address] EST GFR - AA Normal >60 [facility] Comment on above: Result Comment: GREGORY ENT DISCHARGED-NO SPECIMEN REC'D Performed By: #### L 500.4050, L100.0100 #### [facility] [address] [place], [address] GAP Normal 5-15 [facility] Comment on above: Result Comment: GREGORY ENT DISCHARGED-NO SPECIMEN REC'D Performed By: #### L 500.4050, L100.0100 #### [facility] [address] [place], [address] GLU Normal 74-106 [facility] Comment on above: Result Comment: GREGORY ENT DISCHARGED-NO SPECIMEN REC'D Performed By: #### L 500.4050, L100.0100 #### [facility] [address] [place], [address] Potassium Normal 3.5-5.1 [facility] Comment on above: Result Comment: GREGORY ENT DISCHARGED-NO SPECIMEN REC'D Performed By: #### L 500.4050, L100.0100 #### [facility] [address] [place], [address] T BILI Normal 0.20-1.00 [facility] Comment on above: Result Comment: GREGORY ENT DISCHARGED-NO SPECIMEN REC'D Performed By: #### L 500.4050, L100.0100 #### [facility] [address] [place], [address] T PROT Normal 6.4-8.2 [facility] Comment on above: Result Comment: GREGORY ENT DISCHARGED-NO SPECIMEN REC'D Performed By: #### L 500.4050, L100.0100 #### [facility] [address] [place], [address] Comprehensive Metabolic Profil Normal 136-145 [facility] Comment on above: Result Comment: GREGORY ENT DISCHARGED-NO SPECIMEN REC'D Performed By: #### L 500.4050, L100.0100 #### [facility] [address] [place], [address] Emergency Department Summary on 07-04-2024 Emergency Department Summary [facility] Medical Records Department [address] [place] [address] Emergency Department Summary 07/04/24 MR#: [id number] Acct: [id number] Name: GILBERTO JOHNSON Rep #: [id number] : 1985 38 From: Nolan Brady DO PCP: Care Physician,No Primary Status:DEP ER Location: ED HPI History of Present Illness Chief Complaint: Abd Pain Informant: patient Onset/Context/Timi green Onset: Today Context: Gradual Onset Timing: Continuous [...] some subjective chills but denies any fevers. [facility] Medical History Acute sinusitis, unspecified Pancreatitis Chronic [...] viral illne (more content not included)... Normal [facility] Urinalysis, Completeon 07-04 BACTERIA RARE Normal None Seen [facility] Comment on above: Order Comment: DAWOOD CTOR TO SPECIFY Performed By: #### L 400.0001 #### [facility] [address] [place], [address] WBC >100 SEEN Normal [address] [place] [address] Comment on above: Order Comment: DAWOOD CTOR TO SPECIFY Performed By: #### L 400.0001 #### [facility] [address] [place], [address] EPI,SQUAMOUS 0 SEEN Normal [address] [place] [address] Comment on above: Order Comment: DAWOOD CTOR TO SPECIFY Performed By: #### L 400.0001 #### [facility] [address] [place], [address] Mucus Ql (Urine sed) 0 SEEN Normal [facility] Comment on above: Order Comment: DAWOOD CTOR TO SPECIFY Performed By: #### L 400.0001 #### [facility] [address] [place], [address] RBC 0 SEEN Normal [address] [place] [address] Comment on above: Order Comment: DAWOOD CTOR TO SPECIFY Performed By: #### L 400.0001 #### [facility] [address] [place], [address] Emergency Department Summary on 06-16-2024 Emergency Department Summary [facility] Medical Records Department [address] [place] [address] Emergency Department Summary 06/16/24 MR#: [id number] Acct: [id number] Name: GILBERTO JOHNSON Rep #: [id number] : 1985 38 From: Matt Whatley DO [...] to this he comes in for evaluation. [facility] Medical History (Updated 06/16/24 @ 23:04 by [...] on palpat (more content not included)... Normal [facility] Absolute lymphocyte countOrd ered By: Varun Early on 12-25-2023 Lymphocytes Auto (Unsp spec) [#/Vol] 1.00 10*3/uL 0.83-4.51 [facility] Automated lymphocyte count a s percentage of total leukocytesOrdered By: Varun Early on 12-25-2023 Lymphocytes/100 WBC Auto (Unsp spec) 5.8 % 19-41 [facility] Basophil percentageOrdered B y: Remus Sharath on 12-25-2023 Basophils/100 WBC (Bld) 0.4 % 0-1 [facility] Bilirubin [Mass/Vol] 1.10 mg/dL 0.20-1.00 [facility] Comment on above: For patients on eltr ombopag therapy, use of Dimension [place] TBIL is not recommended. Chloride [Moles/Vol] 105 mmol/L 98-107 [facility] Eosinophils/100 WBC (Bld) 0.5 % 0-5 [facility] Glucose [Mass/Vol] 91 mg/dL 74-106 [facility] Hemoglobin (Bld) [Mass/Vol] 17.9 g/dL 13.0-16. 5 [facility] Monocytes/100 WBC (Bld) 7.1 % 0-10 [facility] Neutrophils (Bld) [#/Vol] 14.8 10*3/uL 2.0-7.7 [facility] Neutrophils/100 WBC (Bld) 85.7 % 47-70 [facility] Potassium [Moles/Vol] 3.2 mmol/L 3.5-5.1 [facility] Protein [Mass/Vol] 8.4 g/dL 6.4-8.2 [facility] Sodium [Moles/Vol] 142 mmol/L 136-145 [facility] WBC (Bld) [#/Vol] 17.2 10*3/uL 4.4-11.0 [facility] Determination of erythrocyte mean corpuscular volume (MCV)Ordered By: Varun Early on 12-25-2023 MCV (RBC) [Entitic vol] 91.4 fL 80-94 [facility] Erythrocyte distribution wid th ratioOrdered By: Remus Ungjoss on 12-25-2023 Erythrocyte distribution width (RBC) [Ratio] 11.9 % 11.6-14.6 [facility] Erythrocyte distribution wid th standard deviationOrdered By: [facility] on 12-25-2023 Erythrocyte distribution width (RBC) [Entitic vol] 39.5 fL 35.1-43.9 [facility] Hematocrit Auto (Bld) [Volum e fraction]Ordered By: [facility] on 12-25-2023 Hematocrit (Bld) [Volume fraction] 51.2 % 40-54 [facility] Immature granulocytes/100 WB C Auto (Bld)Ordered By: [facility] on 12-25-2023 Immature granulocytes/100 WBC (Bld) 0.500 % 0.0-0.9 [facility] Comment on above: IG% - Immature Granu locytes (promyelocytes, myelocytes and metamyelocytes) > 1% indicates that a LEFT SHIFT is Present. Laboratory - Chemistry and C hemistry - challengeOrdered By: [facility] on 12-25-2023 Albumin/Globulin [Mass ratio] 1.2 {ratio} 0.9-2.4 [facility] ALP [Catalytic activity/Vol] 69 U/L 45-117 [facility] ALT [Catalytic activity/Vol] 23 U/L 16-61 [facility] CO2 [Moles/Vol] 32.0 mmol/L 21.0-32.0 [facility] Globulin (S) [Mass/Vol] 3.9 g/dL 2.2-4.2 [facility] Lipase [Catalytic activity/Vol] 42 U/L 13-75 [facility] Comment on above: Please note:LIPASE r evised reference range effective 23. New Lipase methodology. Expected to produce lower values than the previous assay method. NEW Reference Range: 13 - 75 U/L Urea nitrogen/Creatinine [Mass ratio] 15.9 mg/mg 10-20 [facility] - Hematology and Cell countsOrdered By: [facility] on 12-25-2023 MCH (RBC) [Entitic mass] 32.0 pg 27.0-32.0 [facility] MCHC (RBC) [Mass/Vol] 35.0 g/dL 32-36 [facility] Nucleated RBC/100 WBC (Bld) [Ratio] 0 % 0-5 [facility] Platelet mean volume (Bld) [Entitic vol] 10.4 fL 6.2-12.0 [facility] Platelets (Bld) [#/Vol] 201 10*3/uL 150-450 [facility] No Panel InformationOrdered By: Varun Early on 12-25-2023 Estimated Creatinine Clearance Calc 97.58 ml/min [facility] Estimated GFR (MDRD) Amer 116 mL/min >60 [facility] Comment on above: GFR Calc Estimated GFR (MDRD) Non-Af Amer 96 mL/min >60 [facility] Comment on above: Non- GFR Calc RBC Auto (Bld) [#/Vol]Ordere d By: Varun Early on 12-25-2023 RBC (Bld) [#/Vol] 5.60 10*6/uL 4.6-6.2 [facility] Serum or plasma calcium rosalia urement (mass/volume)Ordered By: Varun Early on 12-25-2023 Calcium [Mass/Vol] 9.2 mg/dL 8.5-10.1 [facility] Serum or plasma creatinine m easurement (mass/volume)Ordered By: Varun Early on 12-25-2023 Creatinine [Mass/Vol] 0.94 mg/dL 0.70-1.30 [facility] Comment on above: The validity of the calculated GFR & GFRAA in patients over 70 years has not been determined. Clinical correlation is essential. Serum or plasma urea nitroge n measurement (mass/volume)Ordered By: Varun Early on 12-25-2023 Urea nitrogen [Mass/Vol] 15 mg/dL 7-18 [facility] Thin prep Papanicolaou smear with manual screeningOrdered By: Varun Early on 12-25-2023 Thin prep Papanicolaou smear with manual screening 4.5 g/dL 3.2-5.0 [facility] Thin prep Papanicolaou smear with manual screening 21 U/L 15-37 [facility] Thin prep Papanicolaou smear with manual screening 5 5-15 [facility] Absolute lymphocyte countOrd ered By: Dr. Brady on 01-02-2023 Lymphocytes Auto (Unsp spec) [#/Vol] 1.44 10*3/uL 0.83-4.51 [facility] Basophil percentageOrdered B y: Dr. Brady on 01-02-2023 Basophils/100 WBC (Bld) 0.3 % 0-1 [facility] Chloride [Moles/Vol] 108 mmol/L 98-107 [facility] Eosinophils/100 WBC (Bld) 1.0 % 0-5 [facility] Glucose [Mass/Vol] 89 mg/dL 74-106 [facility] Neutrophils (Bld) [#/Vol] 6.5 10*3/uL 2.0-7.7 [facility] Neutrophils/100 WBC (Bld) 71.9 % 47-70 [facility] Potassium [Moles/Vol] 3.2 mmol/L 3.5-5.1 [facility] Sodium [Moles/Vol] 142 mmol/L 136-145 [facility] WBC (Bld) [#/Vol] 9.0 10*3/uL 4.4-11.0 [facility] Blood erythrocytes count (nu mber/volume)Ordered By: Dr. Brady on 01-02-2023 RBC (Bld) [#/Vol] 4.31 10*6/uL 4.6-6.2 [facility] Blood hemoglobin measurement (mass/volume)Ordered By: Dr. Brady on 01-02-2023 Hemoglobin (Bld) [Mass/Vol] 14.0 g/dL 13.0-16. 5 [facility] Blood lymphocytes/100 leukoc ytesOrdered By: Dr. Brady on 01-02-2023 Lymphocytes/100 WBC (Bld) 16.0 % 19-41 [facility] Blood monocytes/100 leukocyt esOrdered By: Dr. Brady on 01-02-2023 Monocytes/100 WBC (Bld) 10.5 % 0-10 [facility] Blood platelet mean volumeOr dered By: Dr. Brady on 01-02-2023 Platelet mean volume (Bld) [Entitic vol] 9.8 fL 6.2-12.0 [facility] Determination of erythrocyte mean corpuscular volume (MCV)Ordered By: Dr. Brady on 01-02-2023 MCV (RBC) [Entitic vol] 91.9 fL 80-94 [facility] Hematocrit Auto (Bld) [Volum e fraction]Ordered By: Dr. Brady on 01-02-2023 Hematocrit (Bld) [Volume fraction] 39.6 % 40-54 [facility] - Chemistry and C hemistry - challengeOrdered By: Dr. Brady on 01-02-2023 CO2 [Moles/Vol] 30.0 mmol/L 21.0-32.0 [facility] Urea nitrogen/Creatinine [Mass ratio] 6.0 mg/mg 10-20 [facility] - Hematology and Cell countsOrdered By: Dr. Brady on 01-02-2023 Erythrocyte distribution width (RBC) [Entitic vol] 40.3 fL 35.1-43.9 [facility] Erythrocyte distribution width (RBC) [Ratio] 11.9 % 11.6-14.6 [facility] Immature granulocytes/100 WBC (Bld) 0.300 % 0.0-0.9 [facility] Comment on above: IG% - Immature Granu locytes (promyelocytes, myelocytes and metamyelocytes) > 1% indicates that a LEFT SHIFT is Present. MCH (RBC) [Entitic mass] 32.5 pg 27.0-32.0 [facility] Nucleated RBC/100 WBC (Bld) [Ratio] 0 % 0-5 [facility] MCHC Auto (RBC) [Mass/Vol]Or dered By: Dr. Bardy on 01-02-2023 MCHC (RBC) [Mass/Vol] 35.4 g/dL 32-36 [facility] No Panel InformationOrdered By: Dr. Brady on 01-02-2023 Estimated Creatinine Clearance Calc 93.27 ml/min [facility] Estimated GFR (MDRD) Amer 109 mL/min >60 [facility] Comment on above: GFR Calc Estimated GFR (MDRD) Non-Af Amer 90 mL/min >60 [facility] Comment on above: Non- GFR Calc Platelets bldOrdered By: Dr. Brady on 01-02-2023 Platelets (Bld) [#/Vol] 147 10*3/uL 150-450 [facility] Serum or plasma calcium rosalia urement (mass/volume)Ordered By: Dr. Brady on 01-02-2023 Calcium [Mass/Vol] 8.8 mg/dL 8.5-10.1 [facility] Serum or plasma creatinine m easurement (mass/volume)Ordered By: Dr. Brady on 01-02-2023 Creatinine [Mass/Vol] 1.00 mg/dL 0.70-1.30 [facility] Comment on above: The validity of the calculated GFR & GFRAA in patients over 70 years has not been determined. Clinical correlation is essential. Serum or plasma urea nitroge n measurement (mass/volume)Ordered By: Dr. Brady on 01-02-2023 Urea nitrogen [Mass/Vol] 6 mg/dL 7-18 [facility] Thin prep Papanicolaou smear with manual screeningOrdered By: Dr. Brady on 01-02-2023 Thin prep Papanicolaou smear with manual screening 4 5-15 [facility] Throat Streptococcus pyogene s antigen detection by immunofluorescenceOrdered By: Dr. Begum on 10-11-2022 S. pyogenes Ag IF Ql (Throat) [facility] STREPAon 10-03-2022 Group A Strep PCR Negative Normal Negative [facility] ([place]) Comment on above: Performed By: #### S PRINCESS #### [place] [address] Group A Strep PCR Int Normal [facility] ([place]) Comment on above: Result Comment: Nega tive [...] Interp Performed By: #### S PRINCESS #### [address] [address] LABORATORYOrdered By: Modesto Tam on 10-02-2022 S. [...] 09-11-2022 S. pyogenes Ag IF Ql (Throat) [facility] Absolute lymphocyte countOrd ered By: Dr. Pena on 09-03-2022 Lymphocytes Auto (Unsp spec) [#/Vol] 0.50 10*3/uL 0.83-4.51 [facility] Basophil percentageOrdered B y: Dr. Pena on 09-03-2022 Basophils/100 WBC (Bld) 0.3 % 0-1 [facility] Bilirubin [Mass/Vol] 1.60 mg/dL 0.20-1.00 [facility] Comment on above: For patients on eltr ombopag therapy, use of Dimension [place] TBIL is not recommended. Chloride [Moles/Vol] 109 mmol/L 98-107 [facility] Eosinophils/100 WBC (Bld) 0.0 % 0-5 [facility] Glucose [Mass/Vol] 100 mg/dL 74-106 [facility] Comment on above: Fasting Glucose resu lt from 100 to 125 mg/dL suggests IMPAIRED HOMEOSTASIS per A.D.A. criteria. Neutrophils (Bld) [#/Vol] 10.0 10*3/uL 2.0-7.7 [facility] Neutrophils/100 WBC (Bld) 89.3 % 47-70 [facility] Potassium [Moles/Vol] 3.7 mmol/L 3.5-5.1 [facility] Protein [Mass/Vol] 7.4 g/dL 6.4-8.2 [facility] Sodium [Moles/Vol] 144 mmol/L 136-145 [facility] WBC (Bld) [#/Vol] 11.2 10*3/uL 4.4-11.0 [facility] Blood erythrocytes count (nu mber/volume)Ordered By: Dr. Pena on 09-03-2022 RBC (Bld) [#/Vol] 5.24 10*6/uL 4.6-6.2 [facility] Blood hemoglobin measurement (mass/volume)Ordered By: Dr. Pena on 09-03-2022 Hemoglobin (Bld) [Mass/Vol] 16.8 g/dL 13.0-16. 5 [facility] Blood lymphocytes/100 leukoc ytesOrdered By: Dr. Pena on 09-03-2022 Lymphocytes/100 WBC (Bld) 4.5 % 19-41 [facility] Blood manual differential co mment interpretation (narrative result)Ordered By: Dr. Pena on 09-03-2022 Manual differential comment Vincent (Bld) [Interp] SEE COMMENT [facility] Comment on above: LYMPHOPENIA NOTED Blood monocytes/100 leukocyt esOrdered By: Dr. Pena on 09-03-2022 Monocytes/100 WBC (Bld) 5.5 % 0-10 [facility] Blood platelet adequacy dete ction by light microscopyOrdered By: Dr. Pena on 09-03-2022 Platelets LM Ql (Bld) ADEQUATE ADEQ [facility] Blood platelet mean volumeOr dered By: Dr. Pena on 09-03-2022 Platelet mean volume (Bld) [Entitic vol] 10.5 fL 6.2-12.0 [facility] Determination of erythrocyte mean corpuscular volume (MCV)Ordered By: Dr. Pena on 09-03-2022 MCV (RBC) [Entitic vol] 90.5 fL 80-94 [facility] Hematocrit Auto (Bld) [Volum e fraction]Ordered By: Dr. Pena on 09-03-2022 Hematocrit (Bld) [Volume fraction] 47.4 % 40-54 [facility] Laboratory - Chemistry and C hemistry - challengeOrdered By: Dr. Pena on 09-03-2022 ALP [Catalytic activity/Vol] 67 U/L 45-117 [facility] ALT [Catalytic activity/Vol] 24 U/L 16-61 [facility] CO2 [Moles/Vol] 30.0 mmol/L 21.0-32.0 [facility] Globulin (S) [Mass/Vol] 3.2 g/dL 2.2-4.2 [facility] Lipase [Catalytic activity/Vol] 50 U/L 73-393 [facility] Urea nitrogen/Creatinine [Mass ratio] 9.8 mg/mg 10-20 [facility] Laboratory - Hematology and Cell countsOrdered By: Dr. Pena on 09-03-2022 Anisocytosis Ql (Bld) RARE [facility] Erythrocyte distribution width (RBC) [Entitic vol] 40.6 fL 35.1-43.9 [facility] Erythrocyte distribution width (RBC) [Ratio] 12.5 % 11.6-14.6 [facility] Immature granulocytes/100 WBC (Bld) 0.400 % 0.0-0.9 [facility] Comment on above: IG% - Immature Granu locytes (promyelocytes, myelocytes and metamyelocytes) > 1% indicates that a LEFT SHIFT is Present. MCH (RBC) [Entitic mass] 32.1 pg 27.0-32.0 [facility] Nucleated RBC/100 WBC (Bld) [Ratio] 0 % 0-5 [facility] MCHC Auto (RBC) [Mass/Vol]Or dered By: Dr. Pena on 09-03-2022 MCHC (RBC) [Mass/Vol] 35.4 g/dL 32-36 [facility] Macrocytes detectionOrdered By: Dr. Pena on 09-03-2022 Macrocytes Ql (Bld) [facility] [place] No Panel InformationOrdered By: Dr. Pena on 09-03-2022 Estimated Creatinine Clearance Calc 108.90 ml/min [facility] Estimated GFR (MDRD) Amer 138 mL/min >60 [facility] Comment on above: GFR Calc Estimated GFR (MDRD) Non-Af Amer 114 mL/min >60 [facility] Comment on above: Non- GFR Calc Ethyl Alcohol Level 5.0 mg/dL [facility] Comment on above: The serum:whole bloo d ethanol ratio is approximately 1.14and varies slightly with hematocrit. Medical Alcohol reference interval and critical value innon-tolerant individuals; 50 - 100 Impairment 100 Intoxication 100 - 250 Severe Poisoning 250 - 400 Deep/possible fatal coma Influenza Types A,B Direct FA (JESS) [facility] Platelets bldOrdered By: Dr. Pena on 09-03-2022 Platelets (Bld) [#/Vol] 151 10*3/uL 150-450 [facility] RBC morphologyOrdered By: Dr Dick Pena on 09-03-2022 RBC morphology finding Nom (Bld) N CHROM NORMAL NORM C&C [facility] Serum or plasma albumin rosalia urement (mass/volume)Ordered By: Dr. Pena on 09-03-2022 Albumin [Mass/Vol] 4.2 g/dL 3.2-5.0 [facility] Serum or plasma albumin/glob ulin mass ratioOrdered By: Dr. Pena on 09-03-2022 Albumin/Globulin [Mass ratio] 1.3 {ratio} 0.9-2.4 [facility] Serum or plasma calcium rosalia urement (mass/volume)Ordered By: Dr. Pena on 09-03-2022 Calcium [Mass/Vol] 8.8 mg/dL 8.5-10.1 [facility] Serum or plasma creatinine m easurement (mass/volume)Ordered By: Dr. Pena on 09-03-2022 Creatinine [Mass/Vol] 0.82 mg/dL 0.70-1.30 [facility] Comment on above: The validity of the calculated GFR & GFRAA in patients over 70 years has not been determined. Clinical correlation is essential. Serum or plasma urea nitroge n measurement (mass/volume)Ordered By: Dr. Pena on 09-03-2022 Urea nitrogen [Mass/Vol] 8 mg/dL 7-18 [facility] Thin prep Papanicolaou smear with manual screeningOrdered By: Dr. Pena on 09-03-2022 Thin prep Papanicolaou smear with manual screening 16 U/L 15-37 [facility] Thin prep Papanicolaou smear with manual screening 5 5-15 [facility] Basophil percentageOrdered B y: Dr. Richards on 11-17-2022 Basophil percentage 0 SEEN /hpf 0-5 [facility] Bilirubin Test strip Ql (U)O rdered By: Dr. Richards on 08-20-2022 Bilirubin Ql (U) Negative Negative [facility] Ketones Test strip Ql (U)Ord ered By: Dr. Richards on 08-20-2022 Ketones Ql (U) Negative Negative [facility] Mucus LM Ql (Urine sed)Order ed By: Dr. Richards on 08-20-2022 Mucus Ql (Urine sed) 0 SEEN /hpf [facility] Nitrite Test strip Ql (U)Ord ered By: Dr. Richards on 08-20-2022 Nitrite Ql (U) Negative Negative [facility] Protein Test strip Ql (U)Ord ered By: Dr. Richards on 08-20-2022 Protein Ql (U) Negative Negative [facility] Squamous epithelial cells de tection in urine sediment by light microscopyOrdered By: Dr. Richards on 08-20-2022 Epithelial cells.squamous LM Ql (Urine sed) 0 SEEN /hpf 0-5 [facility] Urine blood detectionOrdered By: Dr. Richards on 08-20-2022 RBC Ql (U) Negative Negative [facility] RBC Ql (U) 0 SEEN /hpf 0-5 [facility] Urine clarityOrdered By: Dr. Richards on 08-20-2022 Clarity (U) Clear Clear [facility] Urine color determinationOrd ered By: Dr. Richards on 08-20-2022 Color (U) Straw Yellow [facility] Urine glucose detectionOrder ed By: Dr. Richards on 08-20-2022 Glucose Ql (U) Normal mg/dl Normal [facility] Urine leukocyte esterase det ection by dipstickOrdered By: Dr. Richards on 08-20-2022 Leukocyte esterase Test strip Ql (U) Negative Negative [facility] Urine pHOrdered By: Dr. Kapil cha on 08-20-2022 pH (U) 7.0 [pH] 5.0 - 8.0 [facility] Urine sediment bacteria coun t by microscopy (number/high power field)Ordered By: Dr. Richards on 08-20-2022 Bacteria LM.HPF (Urine sed) [#/Area] 0 /[HPF] None Seen [facility] Urine specific gravity measu rementOrdered By: Dr. Richards on 08-20-2022 Specific gravity (U) [Rel density] 1.010 1.002-1.030 [facility] Urobilinogen Auto test strip Ql (U)Ordered By: Dr. Richards on 08-20-2022 Urobilinogen Ql (U) Normal mg/dl Normal [facility] Absolute lymphocyte counton 07-30-2022 Lymphocytes Auto (Unsp spec) [#/Vol] 0.88 10*3/uL 0.83-4.51 [facility] Work Phone: Basophil percentageon 2021 Basophils/100 WBC (Bld) 0.1 % 0-1 [facility] Work Phone: Bilirubin [Mass/Vol] 1.70 mg/dL 0.20-1.00 [facility] Work Phone: Comment on above: For patients on eltr ombopag therapy, use of Dimension [place] TBIL is not recommended. Chloride [Moles/Vol] 106 mmol/L 98-107 [facility] Work Phone: Eosinophils/100 WBC (Bld) 0.1 % 0-5 [facility] Work Phone: Glucose [Mass/Vol] 109 mg/dL 74-106 [facility] Work Phone: Comment on above: Fasting Glucose resu lt from 100 to 125 mg/dL suggests IMPAIRED HOMEOSTASIS per A.D.A. criteria. Neutrophils (Bld) [#/Vol] 5.1 10*3/uL 2.0-7.7 [facility] Work Phone: Neutrophils/100 WBC (Bld) 75.1 % 47-70 [facility] Work Phone: Potassium [Moles/Vol] 3.8 mmol/L 3.5-5.1 [facility] Work Phone: Protein [Mass/Vol] 7.4 g/dL 6.4-8.2 [facility] Work Phone: Sodium [Moles/Vol] 137 mmol/L 136-145 [facility] Work Phone: WBC (Bld) [#/Vol] 6.8 10*3/uL 4.4-11.0 [facility] Work Phone: [phone] Blood erythrocytes count (nu mber/volume)on 07-30-2022 RBC (Bld) [#/Vol] 4.96 10*6/uL 4.6-6.2 [facility] Blood hemoglobin measurement (mass/volume)on 07-30-2022 Hemoglobin (Bld) [Mass/Vol] 16.2 g/dL 13.0-16. 5 [facility] Work Phone: Blood lymphocytes/100 leukoc yteson 07-30-2022 Lymphocytes/100 WBC (Bld) 12.9 % 19-41 [facility] Work Phone: [phone] Blood monocytes/100 leukocyt eson 07-30-2022 Monocytes/100 WBC (Bld) 11.4 % 0-10 [facility] Work Phone: Blood platelet mean volumeon 07-30-2022 Platelet mean volume (Bld) [Entitic vol] 10.2 fL 6.2-12.0 [facility] Work Phone: Determination of erythrocyte mean corpuscular volume (MCV)on 07-30-2022 MCV (RBC) [Entitic vol] 87.7 fL 80-94 [facility] Work Phone: Hematocrit Auto (Bld) [Volum e fraction]on 07-30-2022 Hematocrit (Bld) [Volume fraction] 43.5 % 40-54 [facility] Work Phone: Laboratory - Chemistry and C hemistry - challengeon 07-30-2022 ALP [Catalytic activity/Vol] 66 U/L 45-117 [facility] Work Phone: ALT [Catalytic activity/Vol] 22 U/L 16-61 [facility] Work Phone: CO2 [Moles/Vol] 26.0 mmol/L 21.0-32.0 [facility] Work Phone: Globulin (S) [Mass/Vol] 3.3 g/dL 2.2-4.2 [facility] Work Phone: [phone] Lipase [Catalytic activity/Vol] 54 U/L 73-393 [facility] Work Phone: [phone] Urea nitrogen/Creatinine [Mass ratio] 9.2 mg/mg 10-20 [facility] Work Phone: [phone] Laboratory - Hematology and Cell countson 07-30-2022 Erythrocyte distribution width (RBC) [Entitic vol] 37.7 fL 35.1-43.9 [facility] Work Phone: [phone] Erythrocyte distribution width (RBC) [Ratio] 11.8 % 11.6-14.6 [facility] Work Phone: [phone] Immature granulocytes/100 WBC (Bld) 0.400 % 0.0-0.9 [facility] Work Phone: [phone] Comment on above: IG% - Immature Granu locytes (promyelocytes, myelocytes and metamyelocytes) > 1% indicates that a LEFT SHIFT is Present. MCH (RBC) [Entitic mass] 32.7 pg 27.0-32.0 [facility] Work Phone: Nucleated RBC/100 WBC (Bld) [Ratio] 0 % 0-5 [facility] Work Phone: [phone] MCHC Auto (RBC) [Mass/Vol]on 07-30-2022 MCHC (RBC) [Mass/Vol] 37.2 g/dL 32-36 [facility] Work Phone: No Panel Informationon 07-30 Estimated Creatinine Clearance Calc 82.55 ml/min [facility] Work Phone: [phone] Estimated GFR (MDRD) Amer 99 mL/min >60 [facility] Work Phone: [phone] Comment on above: GFR Calc Estimated GFR (MDRD) Non-Af Amer 82 mL/min >60 [facility] Work Phone: [phone] Comment on above: Non- GFR Calc Platelets bldon 07-30-2022 Platelets (Bld) [#/Vol] 166 10*3/uL 150-450 [facility] Work Phone: Serum or plasma albumin rosalia urement (mass/volume)on 07-30-2022 Albumin [Mass/Vol] 4.1 g/dL 3.2-5.0 [facility] Work Phone: Serum or plasma albumin/glob ulin mass ratioon 07-30-2022 Albumin/Globulin [Mass ratio] 1.2 {ratio} 0.9-2.4 [facility] Work Phone: Serum or plasma calcium rosalia urement (mass/volume)on 07-30-2022 Calcium [Mass/Vol] 9.1 mg/dL 8.5-10.1 [facility] Work Phone: Serum or plasma creatinine m easurement (mass/volume)on 07-30-2022 Creatinine [Mass/Vol] 1.09 mg/dL 0.70-1.30 [facility] Work Phone: Comment on above: The validity of the calculated GFR & GFRAA in patients over 70 years has not been determined. Clinical correlation is essential. Serum or plasma urea nitroge n measurement (mass/volume)on 07-30-2022 Urea nitrogen [Mass/Vol] 10 mg/dL 7-18 [facility] Work Phone: Thin prep Papanicolaou smear with manual screeningon 07-30-2022 Thin prep Papanicolaou smear with manual screening 24 U/L 15-37 [facility] Work Phone: Thin prep Papanicolaou smear with manual screening 5 5-15 [facility] Work Phone: Absolute lymphocyte counton 07-29-2022 Lymphocytes Auto (Unsp spec) [#/Vol] 0.96 10*3/uL 0.83-4.51 [facility] Work Phone: Basophil percentageon 2021 Basophils/100 WBC (Bld) 0.3 % 0-1 [facility] Work Phone: Bilirubin [Mass/Vol] 1.60 mg/dL 0.20-1.00 [facility] Work Phone: Comment on above: For patients on eltr ombopag therapy, use of Dimension [place] TBIL is not recommended. Chloride [Moles/Vol] 111 mmol/L 98-107 [facility] Work Phone: Eosinophils/100 WBC (Bld) 0.2 % 0-5 [facility] Work Phone: Glucose [Mass/Vol] 92 mg/dL 74-106 [facility] Work Phone: Neutrophils (Bld) [#/Vol] 10.1 10*3/uL 2.0-7.7 [facility] Work Phone: Neutrophils/100 WBC (Bld) 83.7 % 47-70 [facility] Work Phone: Potassium [Moles/Vol] 3.8 mmol/L 3.5-5.1 [facility] Work Phone: Protein [Mass/Vol] 7.7 g/dL 6.4-8.2 [facility] Work Phone: Sodium [Moles/Vol] 142 mmol/L 136-145 [facility] Work Phone: WBC (Bld) [#/Vol] 12.1 10*3/uL 4.4-11.0 [facility] Work Phone: Blood erythrocytes count (nu mber/volume)on 07-29-2022 RBC (Bld) [#/Vol] 5.05 10*6/uL 4.6-6.2 [facility] Work Phone: Blood hemoglobin measurement (mass/volume)on 07-29-2022 Hemoglobin (Bld) [Mass/Vol] 16.6 g/dL 13.0-16. 5 [facility] Work Phone: Blood lymphocytes/100 leukoc yteson 07-29-2022 Lymphocytes/100 WBC (Bld) 7.9 % 19-41 [facility] Work Phone: Blood monocytes/100 leukocyt eson 07-29-2022 Monocytes/100 WBC (Bld) 7.4 % 0-10 [facility] Work Phone: Blood platelet mean volumeon 07-29-2022 Platelet mean volume (Bld) [Entitic vol] 10.0 fL 6.2-12.0 [facility] Work Phone: Determination of erythrocyte mean corpuscular volume (MCV)on 07-29-2022 MCV (RBC) [Entitic vol] 88.1 fL 80-94 [facility] Work Phone: Hematocrit Auto (Bld) [Volum e fraction]on 07-29-2022 Hematocrit (Bld) [Volume fraction] 44.5 % 40-54 [facility] Work Phone: Laboratory - Chemistry and C hemistry - challengeon 07-29-2022 ALP [Catalytic activity/Vol] 70 U/L 45-117 [facility] Work Phone: ALT [Catalytic activity/Vol] 26 U/L 16-61 [facility] Work Phone: CO2 [Moles/Vol] 24.0 mmol/L 21.0-32.0 [facility] Work Phone: Globulin (S) [Mass/Vol] 3.3 g/dL 2.2-4.2 [facility] Work Phone: Lipase [Catalytic activity/Vol] 73 U/L 73-393 [facility] Work Phone: Urea nitrogen/Creatinine [Mass ratio] 6.3 mg/mg 10-20 [facility] Work Phone: Laboratory - Hematology and Cell countson 07-29-2022 Erythrocyte distribution width (RBC) [Entitic vol] 37.4 fL 35.1-43.9 [facility] Work Phone: Erythrocyte distribution width (RBC) [Ratio] 11.8 % 11.6-14.6 [facility] Work Phone: [phone] Immature granulocytes/100 WBC (Bld) 0.500 % 0.0-0.9 [facility] Work Phone: [phone] Comment on above: IG% - Immature Granu locytes (promyelocytes, myelocytes and metamyelocytes) > 1% indicates that a LEFT SHIFT is Present. MCH (RBC) [Entitic mass] 32.9 pg 27.0-32.0 [facility] Work Phone: [phone] Nucleated RBC/100 WBC (Bld) [Ratio] 0 % 0-5 [facility] Work Phone: [phone] MCHC Auto (RBC) [Mass/Vol]on 07-29-2022 MCHC (RBC) [Mass/Vol] 37.3 g/dL 32-36 [facility] Work Phone: No Panel Informationon 07-29 Estimated Creatinine Clearance Calc 91.48 ml/min [facility] Work Phone: [phone] Estimated GFR (MDRD) Amer 117 mL/min >60 [facility] Work Phone: [phone] Comment on above: GFR Calc Estimated GFR (MDRD) Non-Af Amer 96 mL/min >60 [facility] Work Phone: [phone] Comment on above: Non- GFR Calc Platelets bldon 07-29-2022 Platelets (Bld) [#/Vol] 176 10*3/uL 150-450 [facility] Work Phone: [phone] Serum or plasma albumin rosalia urement (mass/volume)on 07-29-2022 Albumin [Mass/Vol] 4.4 g/dL 3.2-5.0 [facility] Work Phone: [phone] Serum or plasma albumin/glob ulin mass ratioon 07-29-2022 Albumin/Globulin [Mass ratio] 1.3 {ratio} 0.9-2.4 [facility] Work Phone: [phone] Serum or plasma calcium rosalia urement (mass/volume)on 07-29-2022 Calcium [Mass/Vol] 9.1 mg/dL 8.5-10.1 [facility] Work Phone: Serum or plasma creatinine m easurement (mass/volume)on 07-29-2022 Creatinine [Mass/Vol] 0.94 mg/dL 0.70-1.30 [facility] Work Phone: Comment on above: The validity of the calculated GFR & GFRAA in patients over 70 years has not been determined. Clinical correlation is essential. Serum or plasma urea nitroge n measurement (mass/volume)on 07-29-2022 Urea nitrogen [Mass/Vol] 6 mg/dL 7-18 [facility] Work Phone: Thin prep Papanicolaou smear with manual screeningon 07-29-2022 Thin prep Papanicolaou smear with manual screening 23 U/L 15-37 [facility] Work Phone: Thin prep Papanicolaou smear with manual screening 7 5-15 [facility] Work Phone: CULTURE URINEon 05-04-2022 CULTURE URINE CULTURE URINE --> Status: F No growth (<1,000 CFU/ml). Normal [facility] Comment on above: Performed By: #### C /UR ####[facility] [address] [place] [address] Chlamydia and GC PCR Panelon 05-03-2022 Chlamydia and GC PCR Panel Chlamydia trachomatis PCR --> Status: F NOT Detected Chlamydia trachomatis Nucleic Acid NOT Detected by DNA Amplification using the [employer] System. Culture is the only recommended test in medical-legal cases such as suspected child abuse or molestation. Chlamydia trachomatis Nucleic Acid NOT Detected by DNA Amplification using the [employer] System. Culture is the only recommended test in medical-legal cases such as suspected child abuse or molestation. Neisseria gonorrhoeae PCR --> Status: F NOT Detected Neisseria gonorrhoeae Nucleic Acid NOT Detected by DNA Amplification using the [employer] System. Culture is the only recommended test in medical-legal cases such as suspected child abuse or molestation. Neisseria gonorrhoeae Nucleic Acid NOT Detected by DNA Amplification using the [employer] System. Culture is the only recommended test in medical-legal cases such as suspected child abuse or molestation. Normal [facility] Comment on above: Performed By: #### C TNGP ####[facility] [place] [address] Complete Urinalysison 2021 Bacteria Few (1-5) Abnormal Negative [facility] Comment on above: Result Comment: . Performed By: #### C UA2 #### [facility] [address] [place] [address] RBC, Urine 11 - 25 Abnormal 0-2 [facility] Comment on above: Result Comment: . Performed By: #### C UA2 #### [facility] [address] [place] [address] Squamous Epithelial 3 - 5 Normal 3-5 [facility] Comment on above: Result Comment: . Performed By: #### C UA2 #### [facility] [address] [place] [address] VOLUME, URINE 12 ml Normal [facility] Comment on above: Result Comment: . Performed By: #### C UA2 #### [facility] [address] [place] [address] WBC, Urine 51 - 100 Abnormal 0-5 [facility] Comment on above: Result Comment: . Performed By: #### C UA2 #### [facility] [address] [place] [address] Appearance (U) Turbid Abnormal Clear [facility] Comment on above: Result Comment: . Performed By: #### C UA2 #### [facility] [address] [place] [address] Bilirubin,Urine Negative Normal Negative [facility] Comment on above: Result Comment: . Performed By: #### C UA2 #### [facility] [address] [place] [address] Color (U) LIGHT BROWN Abnormal Lt. Yellow [facility] Comment on above: Result Comment: . Performed By: #### C UA2 #### [facility] [address] [place] [address] Glucose Ql (U) Normal Normal Normal (<70) [facility] Comment on above: Result Comment: . Performed By: #### C UA2 #### [facility] [address] [place] [address] Ketone,Urine Negative Normal Negative [facility] Comment on above: Result Comment: . Performed By: #### C UA2 #### [facility] [address] [place] [address] Leukocytes,Urine 500 Analy/uL Abnormal Negative [facility] Comment on above: Result Comment: . Performed By: #### C UA2 #### [facility] [address] [place] [address] Nitrites,Urine Negative Normal Negative [facility] Comment on above: Result Comment: . Performed By: #### C UA2 #### [facility] [address] [place] [address] Occult Blood,Urine > 1.0 Abnormal Negative [facility] Comment on above: Result Comment: . Performed By: #### C UA2 #### [facility] [address] [place] [address] pH,Urine 6.0 Normal 5.0-8.0 [facility] Comment on above: Result Comment: . Performed By: #### C UA2 #### [facility] [address] [place] [address] Protein (U) [Mass/Vol] 70 mg/dL Abnormal Negative [facility] Comment on above: Result Comment: . Performed By: #### C UA2 #### [facility] [address] [place] [address] Specific [place],Urine < 1.005 Abnormal 1.005 - 1.030 [facility] Comment on above: Result Comment: . Performed By: #### C UA2 #### [facility] [address] [place] [address] Urobilinogen,Urine Normal Normal Normal (0-1) [facility] Comment on above: Result Comment: . Performed By: #### C UA2 #### [facility] [address] [place] [address] Urinalysison 05-02-2022 Appearance (U) Turbid Abnormal Clear [...] Interpretation and review of laboratory results Abnormal [facility] Ketones Ql (U) Negative Negative mg/dL [facility] Comment on above: . LEUKOCYTES, UA 500 Abnormal Negative Analy/uL [facility] Comment on above: . Nitrite, Urine Negative Negative NA [facility] Comment on above: . Occult Blood,Urine mg/dL Abnormal Negative mg/dL [facility] Comment on above: . pH (U) 6.0 [pH] [facility] Comment on above: . Protein (U) [Mass/Vol] 70 mg/dL Abnormal Negative [facility] Comment on above: . RBC, UA /[HPF] Abnormal 0 - 2 /[HPF] [facility] Comment on above: . Specific [place], Urine Abnormal S [facility] Comment on above: . Squam Epithel, UA 3-5 3 - 5 /[HPF] [facility] Comment on above: . Urobilinogen, Urine Normal Normal (0-1) mg/dL [facility] Comment on above: . Volume 12 ml [facility] Comment on above: . WBC, UA /[HPF] Abnormal 0 - 5 /[HPF] [facility] Comment on above: . Test Performed by [facility] [employer] [facility], [address] [place], [place] [address] , [place], [place] [id number] [place] [address] LAB [facility] CULTURE URINEon 03-31-2022 CULTURE URINE CULTURE URINE --> Status: F Insignificant growth based on current clinical guidelines. Normal [facility] Comment on above: Performed By: #### C /UR ####[facility] [id number] [place] [address] CBC with Auto Differentialon 03-28-2022 Absolute Baso # 0.0 10*3/uL 0.0 - 0.2 10*3/uL [facility] Absolute Neut # 5.1 10*3/uL 1.8 - 7.0 10*3/uL [facility] Basophils/100 WBC (Bld) 0.3 % 0.0 - 2.0 % [facility] Eosinophils (Bld) [#/Vol] 0.0 10*3/uL 0. 0 - 0.5 10*3/uL [facility] Eosinophils/100 WBC (Bld) 0.3 % Low 1.0 - 6.0 % [facility] Granulocytes/100 WBC (Bld) 73.8 % 4 0.0 - 80.0 % [facility] Hematocrit (Bld) [Volume fraction] 42.4 % 40.0 - 52.0 % [facility] Hemoglobin (Bld) [Mass/Vol] 15.4 g/dL 13.0 - 18.0 g/dL [facility] Interpretation and review of laboratory results Abnormal [...] [#/Vol] 6.9 10*3/uL 3.6 - 10.7 10*3/uL [facility] Test Performed by [facility] [employer] [facility], [facility] [address] , [place] [id number] [place] [address] LAB [facility] CT Abdomen and Pelvis W cont rast Kristen 03-28-2022 Patient Name: GILBERTO JOHNSON Computed Tomography ACCESSION EXAM DATE/TIME PROCEDURE ORDERING PROVIDER [id number] 03/28/2022 15:[address] Abdomen/Pelvis w/ IV MD ELENA DOUGALAS R. Contrast (IV Onl CPT code 16219 Q9967 Reason For Exam (CT Abdomen/Pelvis w/ [...] JEFFREY Transcribed Date and Time: 03/28/2022 3:43 [facility] Liam Mcdonough MD - 03/28/2022 Patient Name: GILBERTO JOHNSON Computed Tomography ACCESSION EXAM DATE/TIME PROCEDURE ORDERING PROVIDER [id number] 03/28/2022 15:[address] Abdomen/Pelvis w/ IV MD ULICES, PEYTON Beltran Contrast (IV Onl CPT code 52819 Q9967 Reason For Exam (CT Abdomen/Pelvis w/ [...] Tomography ACCESSION EXAM DATE/TIME PROCEDURE ORDERING PROVIDER [id number] 03/28/2022 15:[address] Abdomen/Pelvis w/ IV MD ULICES, PEYTON Beltran Contrast (IV Onl CPT code 98687 Q9967 Reason For Exam (CT Abdomen/Pelvis w/ [...] Transcribed Date and Time: 03/28/2022 3:43 Normal [facility] Comp Metabolic Panelon 03-28 ALP [Catalytic activity/Vol] 55 U/L Normal 38-126 [facility] Comment on above: Performed By: #### H EMDF, LIPA4, CMP3 ####[facility] [address] [place] [address] ALT [Catalytic activity/Vol] 14 U/L Normal 0-49 [facility] Comment on above: Result Comment: The ALT test is performed by an updated assay method. Please note that the reference intervals have been changed and are now sex specific. Performed By: #### H EMDF, LIPA4, CMP3 ####[place] [address] [place] [address] Calcium [Mass/Vol] 9.4 mg/dL Normal 8.4-10.4 [facility] Comment on above: Performed By: #### H EMDF, LIPA4, CMP3 ####[facility] [place] [address] Glucose [Mass/Vol] 87 mg/dL Normal 70-100 [facility] Comment on above: Performed By: #### H EMDF, LIPA4, CMP3 ####[address] [address] Protein [Mass/Vol] 7.6 g/dL Normal 6.3-8.2 [facility] Comment on above: Performed By: #### H EMDF, LIPA4, CMP3 ####[facility] [place] [address] Urea nitrogen [Mass/Vol] 7 mg/dL Normal 7-17 [facility] Comment on above: Performed By: #### H EMDF, LIPA4, CMP3 ####[facility] [place] [address] Anion gap [Moles/Vol] 7 mmol/L Normal 3-13 [facility] Comment on above: Performed By: #### H EMDF, LIPA4, CMP3 ####[facility] [place] [address] AST [Catalytic activity/Vol] 35 U/L Normal 15-46 [facility] Comment on above: Performed By: #### H EMDF, LIPA4, CMP3 ####[facility] [place] [address] Bilirubin [Mass/Vol] 1.5 mg/dL High 0.2-1.3 [facility] Comment on above: Performed By: #### H EMDF, LIPA4, CMP3 ####[facility] [place] [address] CO2 [Moles/Vol] 32 mmol/L High 22-30 [facility] Comment on above: Performed By: #### H GISEL, LIPA4, CMP3 ####[facility] [place] [address] Creatinine [Mass/Vol] 0.84 mg/dL Normal 0.52-1.25 [facility] Comment on above: Performed By: #### H EMDSohail, LIPA4, CMP3 ####[facility] [place] [address] eGFR OTHER > 90.0 Normal >60 [facility] Comment on above: Result Comment: KDIG [...] Performed By: #### H VETO BATRES, CMP3 ####[facility] [place] [address] GFR/1.73 sq M.predicted among blacks MDRD (S/P/Bld) [Vol rate/Area] mL/min/{1.73_m2} Normal >60 [facility] Comment on above: Performed By: #### H EMDF, LIPA4, CMP3 ####[facility] [place] [address] Potassium [Moles/Vol] 3.5 mmol/L Normal 3.5-5.1 [facility] Comment on above: Performed By: #### H EMDF, LIPA4, CMP3 ####[facility] [place] [address] Sodium [Moles/Vol] 140 mmol/L Normal 135-145 [facility] Comment on above: Performed By: #### H EMDF, LIPA4, CMP3 ####[facility] [place] [address] Albumin [Mass/Vol] 4.5 g/dL Normal 3.5-5.0 [facility] Comment on above: Performed By: #### H EMDF, LIPA4, CMP3 ####[facility] [place] [address] Chloride [Moles/Vol] 101 mmol/L Normal 98-107 [facility] Comment on above: Performed By: #### H EMDF, LIPA4, CMP3 ####[facility] [place] [address] Complete Urinalysison 2021 Appearance (U) Clear Normal Clear [facility] Comment on above: Result Comment: . Performed By: #### C UA2 #### [facility] [address] [place] [address] Bilirubin,Urine Negative Normal Negative [facility] Comment on above: Result Comment: . Performed By: #### C UA2 #### [facility] [address] [place] [address] Color (U) COLORLESS Normal Lt. Yellow [facility] Comment on above: Result Comment: . Performed By: #### C UA2 #### [facility] [address] [place] [address] Glucose Ql (U) Normal Normal Normal (<70) [facility] Comment on above: Result Comment: . Performed By: #### C UA2 #### [facility] [address] [place] [address] Ketone,Urine Negative Normal Negative [facility] Comment on above: Result Comment: . Performed By: #### C UA2 #### [facility] [address] [place] [address] Leukocytes,Urine Negative Normal Negative [facility] Comment on above: Result Comment: . Performed By: #### C UA2 #### [facility] [address] [place] [address] Nitrites,Urine Negative Normal Negative [facility] Comment on above: Result Comment: . Performed By: #### C UA2 #### [facility] [address] [place] [address] Occult Blood,Urine Negative Normal Negative [facility] Comment on above: Result Comment: . Performed By: #### C UA2 #### [facility] [address] [place] [address] pH,Urine 7.5 Normal 5.0-8.0 [facility] Comment on above: Result Comment: . Performed By: #### C UA2 #### [facility] [address] [place] [address] Specific [place],Urine < 1.005 Abnormal 1.005 - 1.030 [facility] Comment on above: Result Comment: . Performed By: #### C UA2 #### [facility] [address] [place] [address] Total Protein,Urine Negative Normal Negative [facility] Comment on above: Result Comment: . Performed By: #### C UA2 #### [facility] [address] [place] [address] Urobilinogen,Urine Normal Normal Normal (0-1) [facility] Comment on above: Result Comment: . Performed By: #### C UA2 #### [facility] [address] [place] [address] Comprehensive Metabolic Pane pollo 03-28-2022 Albumin [Mass/Vol] 4.5 g/dL 3.5 - 5.0 g/dL [facility] ALP (Bld) [Catalytic activity/Vol] 55 U/L 38 - 126 U/L [facility] ALT [Catalytic activity/Vol] 14 U/L 0 - 49 U/L [facility] Comment on above: The ALT test is [...] - 1.25 mg/dL [facility] EGFR IF NonAfrican Latvian >90.0 >60 mL/m in [facility] Comment on [...] [Mass/Vol] 87 mg/dL 70 - 100 mg/dL [facility] Interpretation and review of laboratory results Abnormal [facility] Potassium [Moles/Vol] 3.5 mmol/L 3.5 - 5.1 mmol/L [facility] Sodium [Moles/Vol] 140 mmol/L 135 - 145 mmol/L [facility] Urea nitrogen (BldV) [Mass/Vol] 7 mg/dL 7 - 17 mg/dL [facility] Hemogram w/ Autodiffon 03-28 Abs Baso Cnt 0.0 10*3/uL Normal 0.0-0.2 [facility] Comment on above: Performed By: #### H EMDF, LIPA4, CMP3 #### [facility] [address] [place] [address] Abs Neutrophile Cnt 5.1 10*3/uL Normal 1.8-7.0 [facility] Comment on above: Performed By: #### H EMDF, LIPA4, CMP3 #### [facility] [address] [place] [address] Basophils/100 WBC (Bld) 0.3 % Normal 0.0-2.0 [facility] Comment on above: Performed By: #### H EMDF, LIPA4, CMP3 #### [facility] [address] [place] [address] Eosinophils (Bld) [#/Vol] 0.0 10*3/uL Normal 0.0-0.5 [facility] Comment on above: Performed By: #### H EMDF, LIPA4, CMP3 #### [facility] [address] [facility] [place] [address] Eosinophils/100 WBC (Bld) 0.3 % Low 1.0-6.0 [facility] Comment on above: Performed By: #### H EMDF, LIPA4, CMP3 #### [facility] [address] [place] [address] Erythrocyte distribution width (RBC) [Ratio] 11.8 % Normal 11.5-14.5 [facility] Comment on above: Performed By: #### H EMDF, LIPA4, CMP3 #### [facility] [address] [place] [address] Granulocytes/100 WBC (Bld) 73.8 % Normal 40.0-80.0 [facility] Comment on above: Performed By: #### H EMDF, LIPA4, CMP3 #### [facility] [address] [place] [address] Hematocrit (Bld) [Volume fraction] 42.4 % Normal 40.0-52.0 [facility] Comment on above: Performed By: #### H EMDF, LIPA4, CMP3 #### [facility] [address] [place] [address] Hemoglobin (Bld) [Mass/Vol] 15.4 g/dL Normal 13.0-18. 0 [facility] Comment on above: Performed By: #### H EMDF, LIPA4, CMP3 #### [facility] [address] [place] [address] Lymphocytes (Bld) [#/Vol] 1.3 10*3/uL Normal 1.0-4.3 [facility] Comment on above: Performed By: #### H EMDF, LIPA4, CMP3 #### [facility] [address] [place] [address] Lymphocytes/100 WBC (Bld) 18.2 % Low 20.0-40.0 [facility] Comment on above: Performed By: #### H EMDF, LIPA4, CMP3 #### [facility] [address] [place] [address] MCH (RBC) [Entitic mass] 32.5 pg Normal 26.0-34.0 [facility] Comment on above: Performed By: #### H EMDF, LIPA4, CMP3 #### [facility] [address] [place] [address] MCHC 36.3 % High 32.0-36.0 [facility] Comment on above: Performed By: #### H EMDF, LIPA4, CMP3 #### [facility] [address] [place] [address] MCV (RBC) [Entitic vol] 89.5 fL Normal 80.0-98.0 [facility] Comment on above: Performed By: #### H EMDF, LIPA4, CMP3 #### [facility] [address] [place] [address] Monocytes (Bld) [#/Vol] 0.5 10*3/uL Normal 0.0-0.8 [facility] Comment on above: Performed By: #### H EMDF, LIPA4, CMP3 #### [facility] [address] [place] [address] Monocytes/100 WBC (Bld) 7.1 % Normal 2.0-10.0 [facility] Comment on above: Performed By: #### H EMDF, LIPA4, CMP3 #### [facility] [address] [place] [address] Platelet mean volume (Bld) [Entitic vol] 10.1 fL Normal 7.4-12.4 [facility] Comment on above: Result Comment: MPV is a calculated measurement using platelet volume ratio. Performed By: #### H EMDF, LIPA4, CMP3 #### [facility] [address] [place] [address] Platelets (Bld) [#/Vol] 165 10*3/uL Normal 140-440 [facility] Comment on above: Performed By: #### H EMDF, LIPA4, CMP3 #### [facility] [address] [place] [address] RBC (Bld) [#/Vol] 4.74 10*6/uL Normal 4.40-5.90 [facility] Comment on above: Performed By: #### H EMDF, LIPA4, CMP3 #### [facility] [address] [place] [address] WBC (Bld) [#/Vol] 6.9 10*3/uL Normal 3.6-10.7 [facility] Comment on above: Performed By: #### H EMDF, LIPA4, CMP3 #### [facility] [address] [place] [address] Lipaseon 03-28-2022 Lipase [Catalytic activity/Vol] 44 U/L Normal 23-300 [facility] Comment on above: Performed By: #### H EMDF, LIPA4, CMP3 ####[facility] [place] [address] Lipase [Catalytic activity/Vol] 44 U/L 23 - 300 U/L [facility] No Panel Informationon 06-25 -2022 Test Performed by [facility], [facility] [place] , [address] LAB [facility] Urinalysison 03-28-2022 Appearance (U) Clear Clear NA [facility] Comment on above: . Bilirubin Urine Negative Negative mg/dL [facility] Comment on above: . Color (U) COLORLESS Lt. Yellow NA [facility] Comment on above: . Glucose, Ur Normal Normal (<70) mg/dL [facility] Comment on above: . Interpretation and review of laboratory results Abnormal [facility] Ketones Ql (U) Negative Negative mg/dL [facility] Comment on above: . LEUKOCYTES, UA Negative Negative Analy/uL [facility] Comment on above: . Nitrite, Urine Negative Negative NA [facility] Comment on above: . Occult Blood,Urine Negative Negative mg/dL [facility] Comment on above: . pH (U) 7.5 [pH] [facility] Comment on above: . Specific [place], Urine <1.005 Abnormal S [facility] Comment on above: . Total Protein, Urine Negative Negativ e mg/dL [facility] Comment on above: . Urobilinogen, Urine Normal Normal (0-1) mg/dL [facility] Comment on above: . Test Performed by [facility], [facility] [place] , [address] LAB [facility] UA DIP, URINE (POC)on 2021 BILIRUBIN UA (POCT) Negative Negative [facility] CLARITY UA (POCT) Clear [facility] COLOR UA (POCT) Yellow [facility] GLUCOSE UA (POCT) Negative Negative mg/dL [facility] HEMOGLOBIN/BLOOD UA (POCT) Trace-lysed Abnormal Negative [facility] KETONE UA (POCT) Negative Negative mg/dL [facility] LEUKOCYTES UA (POCT) Negative Negative [facility] NITRITE UA (POCT) Negative Negative [facility] PH UA (POCT) 7.5 4.5 - 8.0 [facility] Protein Ql (U) Negative Negative mg/dL [facility] SPECIFIC GRAVITY UA (POCT) 1.015 1 .005 - 1.030 [facility] UROBILINOGEN UA (POCT) 0.2 E.U./dL Martha l E.U./dL [facility] Chlamydia and GC PCR Panelon 03-24-2022 Chlamydia and GC PCR Panel Chlamydia trachomatis PCR --> Status: F NOT Detected Chlamydia trachomatis Nucleic Acid NOT Detected by DNA Amplification using the [employer] System. Culture is the only recommended test in medical-legal cases such as suspected child abuse or molestation. Chlamydia trachomatis Nucleic Acid NOT Detected by DNA Amplification using the [employer] System. Culture is the only recommended test in medical-legal cases such as suspected child abuse or molestation. Neisseria gonorrhoeae PCR --> Status: F NOT Detected Neisseria gonorrhoeae Nucleic Acid NOT Detected by DNA Amplification using the [employer]Precyse[employer] System. Culture is the only recommended test in medical-legal cases such as suspected child abuse or molestation. Neisseria gonorrhoeae Nucleic Acid NOT Detected by DNA Amplification using the [employer]epPrecyseid System. Culture is the only recommended test in medical-legal cases such as suspected child abuse or molestation. Normal [facility] Comment on above: Performed By: #### C UA2 #### [address] [place] [address] #### CTNGP #### [place] [address] [place] [address] Complete Urinalysison 2021 Appearance (U) Clear Normal Clear [facility] Comment on above: Result Comment: . Performed By: #### C UA2 #### [facility] [address] [facility] [place] [address] #### CTNGP #### [address] [address] Bilirubin,Urine Negative Normal Negative [facility] Comment on above: Result Comment: . Performed By: #### C UA2 #### [facility] [address] [place] [address] #### CTNGP #### [place] [address] [place] [address] Color (U) COLORLESS Normal Lt. Yellow [facility] Comment on above: Result Comment: . Performed By: #### C UA2 #### [address] [place] [address] #### CTNGP #### [place] [address] [place] [address] Glucose Ql (U) Normal Normal Normal (<70) [facility] Comment on above: Result Comment: . Performed By: #### C UA2 #### [facility] [address] [place] [address] #### CTNGP #### [facility] [address] [place] [address] Ketone,Urine Negative Normal Negative [facility] Comment on above: Result Comment: . Performed By: #### C UA2 #### [facility] [address] [place] [address] #### CTNGP #### [place] [address] [place] [address] Leukocytes,Urine Negative Normal Negative [facility] Comment on above: Result Comment: . Performed By: #### C UA2 #### [address] [place] [address] #### CTNGP #### [place] [address] [place] [address] Nitrites,Urine Negative Normal Negative [facility] Comment on above: Result Comment: . Performed By: #### C UA2 #### [address] [place] [address] #### CTNGP #### [place] [address] [address] [place], [place] Occult Blood,Urine Negative Normal Negative [facility] Comment on above: Result Comment: . Performed By: #### C UA2 #### [address] [address] #### CTNGP #### [place] [address] [place] [address] pH,Urine 7.5 Normal 5.0-8.0 [facility] Comment on above: Result Comment: . Performed By: #### C UA2 #### [address] [address] #### CTNGP #### [place] [address] [place] [address] Specific [place],Urine < 1.005 Abnormal 1.005 - 1.030 [facility] [employer] Comment on above: Result Comment: . Performed By: #### C UA2 #### [facility] [address] [place] [address] #### CTNGP #### [facility] [employer] [facility] [address] [place] [address] Total Protein,Urine Negative Normal Negative [facility] [employer] Comment on above: Result Comment: . Performed By: #### C UA2 #### [facility] [address] [place] [address] #### CTNGP #### [facility] [employer] [facility] [address] [place] [address] Urobilinogen,Urine Normal Normal Normal (0-1) [facility] [employer] Comment on above: Result Comment: . Performed By: #### C UA2 #### [facility] [place] [address] #### CTNGP #### [facility] [place] [address] UrinalysisOrdered By: Fausto Caruso on 03-23-2022 Appearance (U) Clear Clear NA [employer] Work Phone: Comment on above: . Bilirubin Urine Negative Negative mg/dL [employer] Work Phone: Comment on above: . Color (U) COLORLESS Lt. Yellow NA [employer] Work Phone: Comment on above: . Glucose, Ur Normal Normal (<70) mg/dL [employer] Work Phone: Comment on above: . Interpretation and review of laboratory results Abnormal [employer] Work Phone: Ketones Ql (U) Negative Negative mg/dL [employer] Work Phone: Comment on above: . LEUKOCYTES, UA Negative Negative Analy/uL [employer] Work Phone: Comment on above: . Nitrite, Urine Negative Negative NA [employer] Work Phone: Comment on above: . Occult Blood,Urine Negative Negative mg/dL [employer] Work Phone: Comment on above: . pH (U) 7.5 [pH] [facility] Work Phone: Comment on above: . Specific [place], Urine <1.005 Abnormal S [facility] Work Phone: Comment on above: . Total Protein, Urine Negative Negativ e mg/dL [facility] Work Phone: Comment on above: . Urobilinogen, Urine Normal Normal (0-1) mg/dL [facility] Work Phone: Comment on above: . [facility] Work Phone: Urinalysison 03-23-2022 Test Performed by [facility], [address] [place] , [address] LAB Chlamydia and GC PCR Panelon [...] as suspected child abuse or molestation. Normal [facility] [employer] Comment on above: Performed By: #### C TNGP ####[facility] [employer] [id number] [place] [address] Complete Urinalysison 2021 Appearance (U) Clear Normal Clear [facility] Comment on above: Result Comment: . Performed By: #### C UA2 #### [facility] [address] [place] [address] Bilirubin,Urine Negative Normal Negative [facility] Comment on above: Result Comment: . Performed By: #### C UA2 #### [facility] [address] [place] [address] Color (U) LIGHT YELLOW Normal Lt. Yellow [facility] Comment on above: Result Comment: . Performed By: #### C UA2 #### [facility] [address] [place] [address] Glucose Ql (U) Normal Normal Normal (<70) [facility] Comment on above: Result Comment: . Performed By: #### C UA2 #### [facility] [address] [place] [address] Ketone,Urine Negative Normal Negative [facility] Comment on above: Result Comment: . Performed By: #### C UA2 #### [facility] [address] [place] [address] Leukocytes,Urine Negative Normal Negative [facility] Comment on above: Result Comment: . Performed By: #### C UA2 #### [facility] [address] [place] [address] Nitrites,Urine Negative Normal Negative [facility] Comment on above: Result Comment: . Performed By: #### C UA2 #### [facility] [address] [place] [address] Occult Blood,Urine Negative Normal Negative [facility] Comment on above: Result Comment: . Performed By: #### C UA2 #### [facility] [address] [place] [address] pH,Urine 6.0 Normal 5.0-8.0 [facility] Comment on above: Result Comment: . Performed By: #### C UA2 #### [facility] [address] [place] [address] Specific [place],Urine 1.009 Normal 1.005 - 1.030 [facility] Comment on above: Result Comment: . Performed By: #### C UA2 #### [facility] [address] [place] [address] Total Protein,Urine Negative Normal Negative [facility] Comment on above: Result Comment: . Performed By: #### C UA2 #### [facility] [address] [place] [address] Urobilinogen,Urine Normal Normal Normal (0-1) [facility] Comment on above: Result Comment: . Performed By: #### C UA2 #### [facility] [address] [place] [address] Urinalysison 03-17-2022 Appearance (U) Clear Clear NA [facility] Comment on above: . Bilirubin Urine Negative [...] [pH] [facility] Comment on above: . Specific [place], Urine 1.009 S [facility] Comment on above: . Total Protein, Urine Negative Negativ e mg/dL [facility] Comment on above: . Urobilinogen, Urine Normal Normal (0-1) mg/dL [facility] Comment on above: . Test Performed by [facility], [address] , [place], [place] [id number] [place] [address] LAB [facility] .Urinalysis Microscopic (AO) on 12-19-2021 UA Bacteria Trace Abnormal [facility] ([place] Comment on above: Performed By: #### U AMICAO, UA #### [address] [address] UA RBC 0-5 Abnormal None Seen [facility] [place] Comment on above: Performed By: #### U AMICAO, UA #### [address] [address] UA Squam Epithelial None Seen Normal None Seen [facility] ([place]) Comment on above: Performed By: #### U AMICAO, UA #### [address] [address] UA WBC 0-5 Abnormal None Seen [facility] ([place] Comment on above: Performed By: #### U ERICCAIrving, UA #### [facility] [address] [place], [place] [address] LABORATORYOrdered By: Modesto Tam on 12-19-2021 Appearance [...] SS UAon 12-19-2021 Color (U) Ruchi Normal [facility] ([place]) Comment on above: Performed By: #### U AMICAO, UA #### [address] [address] Glucose (U) [Mass/Vol] 100 mg/dL Abnormal Negative [facility] ([place]) Comment on above: Performed By: #### U AMICAO, UA #### [address] [address] Ketones Ql (U) Trace Abnormal Negative [facility] ([place] Comment on above: Performed By: #### U AMICAO, UA #### [address] [address] UA Appear Clear Normal Clear [facility] ([place] Comment on above: Performed By: #### U AMICAO, UA #### [address] [place] [id number] UA Bili Small Abnormal Negative [facility] ([place] Comment on above: Performed By: #### U AMICAO, UA #### [address] [address] UA Blood Trace Abnormal Negative [facility] ([place] Comment on above: Performed By: #### U AMICAO, UA #### [address] [address] UA Leuk Est Negative Normal Negative [facility] ([place] Comment on above: Performed By: #### U AMICAO, UA #### [address] [address] UA Nitrite Positive Abnormal Negative [facility] ([place] Comment on above: Performed By: #### U AMICAO, UA #### [address] [address] UA pH 5.0 Normal 5.0 - 8.0 [facility] ([place] Comment on above: Performed By: #### U AMICAO, UA #### [facility] [address] [address] UA Protein Trace Normal Negative [facility] ([place] Comment on above: Performed By: #### U AMICAO, UA #### [facility] [place] [address] [place], [place] [address] UA Spec Grav 1.025 Normal 1.015-1.025 [facility] ([place] Comment on above: Performed By: #### U AMICAO, UA #### [facility] [place] [address] [place], [place] [address] UA Specimen Type Clean Catch Normal [facility] ([place] Comment on above: Performed By: #### U AMICAO, UA #### [facility] [place] [address] [place], [place] [address] UA Urobilinogen 1.0 E.U./dL Normal 0.2-1.0 [facility] ([place]) Comment on above: Performed By: #### U AMICAO, UA #### [address] [place] [id number] [place], [place] [address] CR Chest Portableon 12-16-19 CR Chest Portable Patient Name: GILBERTO JOHNSON Diagnostic Radiology ACCESSION EXAM DATE/TIME PROCEDURE ORDERING PROVIDER [id number] 12/15/2021 21:42 EDT CR Chest Portable [facility]AY[facility] IVNA CPT code 13538 Reason For Exam (CR Chest Portable) fever [...] Transcribed Date and Time: 12/15/2021 9:56 Normal [facility] Comp Metabolic Panelon 12-15 ALP [Catalytic activity/Vol] 63 U/L Normal 38-126 [facility] Comment on above: Performed By: #### C MP3, HEMDF #### [facility] [address] [place] [address] ALT [Catalytic activity/Vol] 15 U/L Normal 0-49 [facility] Comment on above: Result Comment: The ALT test is performed by an updated assay method. Please note that the reference intervals have been changed and are now sex specific. Performed By: #### C MP3, HEMDF #### [facility] [address] [place] [address] AST [Catalytic activity/Vol] 28 U/L Normal 15-46 [facility] Comment on above: Performed By: #### C MP3, HEMDF #### [facility] [address] [place] [address] Calcium [Mass/Vol] 9.6 mg/dL Normal 8.4-10.4 [facility] Comment on above: Performed By: #### C MP3, HEMDF #### [facility] [address] [place] [address] Glucose [Mass/Vol] 104 mg/dL High 70-100 [facility] Comment on above: Performed By: #### C MP3, HEMDF #### [facility] [address] [place] [address] Protein [Mass/Vol] 7.5 g/dL Normal 6.3-8.2 [facility] Comment on above: Performed By: #### C MP3, HEMDF #### [facility] [address] [place] [address] Urea nitrogen [Mass/Vol] 3 mg/dL Low 7-17 [facility] Comment on above: Performed By: #### C MP3, HEMDF #### [facility] [address] [facility] [place] [address] Anion gap [Moles/Vol] 8 mmol/L Normal 3-13 [facility] Comment on above: Performed By: #### C MP3, HEMDF #### [facility] [address] [place] [address] Bilirubin [Mass/Vol] 0.8 mg/dL Normal 0.2-1.3 [facility] Comment on above: Performed By: #### C MP3, HEMDF #### [facility] [address] [place] [address] CO2 [Moles/Vol] 27 mmol/L Normal 22-30 [facility] Comment on above: Performed By: #### C MP3, HEMDF #### [facility] [address] [place] [address] Creatinine [Mass/Vol] 0.83 mg/dL Normal 0.52-1.25 [facility] Comment on above: Performed By: #### C MP3, HEMDF #### [facility] [address] [place] [address] eGFR OTHER > 90.0 Normal >60 [facility] Comment on above: Result Comment: KDIG [...] Performed By: #### C MP3, HEMDF #### [facility] [address] [place] [address] GFR/1.73 sq M.predicted among blacks MDRD (S/P/Bld) [Vol rate/Area] mL/min/{1.73_m2} Normal >60 [facility] Comment on above: Performed By: #### C MP3, HEMDF #### [facility] [address] [place] [address] Albumin [Mass/Vol] 4.6 g/dL Normal 3.5-5.0 [facility] Comment on above: Performed By: #### C MP3, HEMDF #### [facility] [address] [place] [address] Chloride [Moles/Vol] 104 mmol/L Normal 98-107 [facility] Comment on above: Performed By: #### C MP3, HEMDF #### [facility] [address] [place] [address] Potassium [Moles/Vol] 3.9 mmol/L Normal 3.5-5.1 [facility] Comment on above: Performed By: #### C MP3, HEMDF #### [facility] [address] [place] [address] Sodium [Moles/Vol] 138 mmol/L Normal 135-145 [facility] Comment on above: Performed By: #### C MP3, HEMDF #### [facility] [address] [place] [address] Hemogram w/ Autodiffon 12-15 Abs Baso Cnt 0.0 10*3/uL Normal 0.0-0.2 [facility] Comment on above: Performed By: #### C MP3, HEMDF #### [facility] [address] [place] [address] Abs Neutrophile Cnt 3.3 10*3/uL Normal 1.8-7.0 [facility] Comment on above: Performed By: #### C MP3, HEMDF #### [facility] [address] [place] [address] Basophils/100 WBC (Bld) 0.7 % Normal 0.0-2.0 [facility] Comment on above: Performed By: #### C MP3, HEMDF #### [facility] [address] [place] [address] Eosinophils (Bld) [#/Vol] 0.0 10*3/uL Normal 0.0-0.5 [facility] Comment on above: Performed By: #### C MP3, HEMDF #### [facility] [address] [place] [address] Eosinophils/100 WBC (Bld) 0.3 % Low 1.0-6.0 [facility] Comment on above: Performed By: #### C MP3, HEMDF #### [facility] [address] [place] [address] Erythrocyte distribution width (RBC) [Ratio] 13.3 % Normal 11.5-14.5 [facility] Comment on above: Performed By: #### C MP3, HEMDF #### [facility] [address] [place] [address] Granulocytes/100 WBC (Bld) 62.9 % Normal 40.0-80.0 [facility] Comment on above: Performed By: #### C MP3, HEMDF #### [facility] [address] [place] [address] Hematocrit (Bld) [Volume fraction] 44.3 % Normal 40.0-52.0 [facility] Comment on above: Performed By: #### C MP3, HEMDF #### [facility] [address] [place] [address] Hemoglobin (Bld) [Mass/Vol] 15.6 g/dL Normal 13.0-18. 0 [facility] Comment on above: Performed By: #### C MP3, HEMDF #### [facility] [address] [place] [address] Lymphocytes (Bld) [#/Vol] 1.4 10*3/uL Normal 1.0-4.3 [facility] Comment on above: Performed By: #### C MP3, HEMDF #### [facility] [address] [place] [address] Lymphocytes/100 WBC (Bld) 26.9 % Normal 20.0-40.0 [facility] Comment on above: Performed By: #### C MP3, HEMDF #### [facility] [address] [place] [address] MCH (RBC) [Entitic mass] 31.4 pg Normal 26.0-34.0 [facility] Comment on above: Performed By: #### C MP3, HEMDF #### [facility] [address] [place] [address] MCHC 35.1 % Normal 32.0-36.0 [facility] Comment on above: Performed By: #### C MP3, HEMDF #### [facility] [address] [place] [address] MCV (RBC) [Entitic vol] 89.3 fL Normal 80.0-98.0 S [facility] Comment on above: Performed By: #### C MP3, HEMDF #### [facility] [address] [place] [address] Monocytes (Bld) [#/Vol] 0.5 10*3/uL Normal 0.0-0.8 [facility] Comment on above: Performed By: #### C MP3, HEMDF #### [facility] [address] [place] [address] Monocytes/100 WBC (Bld) 9.2 % Normal 2.0-10.0 [facility] Comment on above: Performed By: #### C MP3, HEMDF #### [facility] [address] [place] [address] Platelet mean volume (Bld) [Entitic vol] 7.7 fL Normal 7.4-10.4 [facility] Comment on above: Performed By: #### C MP3, HEMDF #### [facility] [address] [place] [address] Platelets (Bld) [#/Vol] 218 10*3/uL Normal 140-440 [facility] Comment on above: Performed By: #### C MP3, HEMDF #### [facility] [address] [place] [address] RBC (Bld) [#/Vol] 4.96 10*6/uL Normal 4.40-5.90 [facility] Comment on above: Performed By: #### C MP3, HEMDF #### [facility] [address] [place] [address] WBC (Bld) [#/Vol] 5.2 10*3/uL Normal 3.6-10.7 [facility] Comment on above: Performed By: #### C MP3, HEMDF #### [facility] [address] [place] [address] CR Chest Portableon 08-16-20 21 CR Chest Portable Patient Name: GILBERTO JOHNSON Diagnostic Radiology ACCESSION EXAM DATE/TIME PROCEDURE ORDERING PROVIDER [id number] 08/16/2021 18:25 EST CR Chest Portable MD LOMBARDI DAVID C. CPT code 96685 Reason For Exam (CR Chest Portable) shortness [...] Transcribed Date and Time: 08/16/2021 6:38 Normal [facility] XR CHEST PORTABLEon 08-16-20 21 Patient Name: GILBERTO JOHNSON Diagnostic Radiology ACCESSION EXAM DATE/TIME PROCEDURE ORDERING PROVIDER [id number] 08/16/2021 18:25 EST CR Chest Portable MD LOMBARDI DAVID C. CPT code 84202 Reason For Exam (CR Chest Portable) shortness [...] ALFRED Transcribed Date and Time: 08/16/2021 6:38 [facility] RAD Benny Olivo DO - 08/16/2021 Patient Name: GILBERTO JOHNSON Diagnostic Radiology ACCESSION EXAM DATE/TIME PROCEDURE ORDERING PROVIDER [id number] 08/16/2021 18:25 EST CR Chest Portable MD HARJIT, FLORECITA Haji CPT code 34278 Reason For Exam (CR Chest Portable) shortness [...] ALFRED Transcribed Date and Time: 08/16/2021 6:38 [facility] Work Phone: Radiology Study observation (narrative) [facility] Work Phone: XR CHEST PORTABLEOrdered By: Benny Olivo on 08-16-2021 [facility] Work Phone: [facility] Note on 04-12-2017 [facility] Note Normal [facility] Patient Summary Documentson 04-10-2017 Patient Summary Documents Normal [facility] Patient Summary Documents Normal [facility] No Panel Information Influenza Types A,B Direct FA ([facility]) [facility] Work Phone: Vital Signs Date Time Vital Sign Value Performing Clinician Facility 04-27-2025 18:31-0400 Body mass index (BMI) [Ratio] 23.46 kg/m2 Emir Simons PA-C Work Phone: [facility] 04-27-2025 18:31-0400 Body temperature 97.81 [degF] Emir Clutter PA-C Work Phone: [facility] 04-27-2025 18:31-0400 Body weight 70 kg Emir Clutter PA-C Work Phone: [facility] 04-27-2025 18:31-0400 Diastolic blood pressure 81 mm[Hg] Emir Clutter PA-C Work Phone: [facility] 04-27-2025 18:31-0400 Heart rate 83 /min Emir Clutter PA-C Work Phone: [facility] 04-27-2025 18:31-0400 Respiratory rate 18 /min Emir Clutter PA-C Work Phone: [facility] 04-27-2025 18:31-0400 SaO2% (BldA) [Mass fraction] 96 % Emir Clutter PA-C Work Phone: [facility] 04-27-2025 18:31-0400 Systolic blood pressure 141 mm[Hg] Emir Clutter PA-C Work Phone: [facility] 04-05-2025 02:51-0400 Body temperature 98 [degF] No Primary Care Physician [facility] 04-05-2025 02:51-0400 Diastolic blood pressure 60 mm[Hg] No Primary Care Physician [facility] 04-05-2025 02:51-0400 Heart rate 72 /min No Primary Care Physician [facility] 04-05-2025 02:51-0400 Respiratory rate 16 /min No Primary Care Physician [facility] 04-05-2025 02:51-0400 SaO2% (BldA) [Mass fraction] 98 % No Primary Care Physician [facility] 04-05-2025 02:51-0400 Systolic blood pressure 132 mm[Hg] No Primary Care Physician [facility] 04-05-2025 01:14-0400 Body height 172.72 cm No Primary Care Physician [facility] 04-05-2025 01:14-0400 Body mass index (BMI) [Ratio] 23.4 kg/m2 No Primary Care Physician [facility] 04-05-2025 01:14-0400 Body weight 69.9 kg No Primary Care Physician [facility] 03-19-2025 01:41-0400 Body temperature 98 [degF] No Primary Care Physician [facility] 03-19-2025 01:41-0400 Diastolic blood pressure 81 mm[Hg] No Primary Care Physician [facility] 03-19-2025 01:41-0400 Heart rate 71 /min No Primary Care Physician [facility] 03-19-2025 01:41-0400 Respiratory rate 18 /min No Primary Care Physician [facility] 03-19-2025 01:41-0400 SaO2% (BldA) [Mass fraction] 100 % No Primary Care Physician [facility] 03-19-2025 01:41-0400 Systolic blood pressure 134 mm[Hg] No Primary Care Physician [facility] 03-19-2025 00:42-0400 Body height 173 cm No Primary Care Physician [facility] 03-19-2025 00:42-0400 Body mass index (BMI) [Ratio] 23.9 kg/m2 No Primary Care Physician [facility] 03-19-2025 00:42-0400 Body weight 71.6 kg No Primary Care Physician [facility] 12-14-2024 18:41-0400 Body mass index (BMI) [Ratio] 23.63 kg/m2 Alex Landers MD Work Phone: [facility] 12-14-2024 18:41-0400 Body temperature 97.9 [degF] Alex Landers MD Work Phone: [facility] 12-14-2024 18:41-0400 Body weight 70.5 kg Alex Landers MD Work Phone: [facility] 12-14-2024 18:41-0400 Diastolic blood pressure 74 mm[Hg] Alex Landers MD Work Phone: [facility] 12-14-2024 18:41-0400 Heart rate 101 /min Alex Landers MD Work Phone: [facility] 12-14-2024 18:41-0400 Respiratory rate 16 /min Alex Landers MD Work Phone: [facility] 12-14-2024 18:41-0400 SaO2% (BldA) [Mass fraction] 96 % Alex Landers MD Work Phone: [facility] 12-14-2024 18:41-0400 Systolic blood pressure 122 mm[Hg] Alex Landers MD Work Phone: [facility] 12-06-2024 12:34-0500 Body mass index (BMI) [Ratio] 22 kg/m2 No Primary Care Physician [facility] 12-06-2024 12:34-0500 Body temperature 97.6 [degF] No Primary Care Physician [facility] 12-06-2024 12:34-0500 Body weight 65.77 kg No Primary Care Physician [facility] 12-06-2024 12:34-0500 Diastolic blood pressure 95 mm[Hg] No Primary Care Physician [facility] 12-06-2024 12:34-0500 Heart rate 86 /min No Primary Care Physician [facility] 12-06-2024 12:34-0500 Respiratory rate 15 /min No Primary Care Physician [facility] 12-06-2024 12:34-0500 SaO2% (BldA) [Mass fraction] 97 % No Primary Care Physician [facility] 12-06-2024 12:34-0500 Systolic blood pressure 130 mm[Hg] No Primary Care Physician [facility] 12-25-2023 07:31-0400 Body temperature 97.4 [degF] [facility] 12-25-2023 07:31-0400 Diastolic blood pressure 83 mm[Hg] [facility] 12-25-2023 07:31-0400 Heart rate 79 /min [facility] 12-25-2023 07:31-0400 Respiratory rate 16 /min [facility] 12-25-2023 07:31-0400 SaO2% (BldA) [Mass fraction] 99 % [facility] 12-25-2023 07:31-0400 Systolic blood pressure 116 mm[Hg] [facility] 12-25-2023 03:45-0400 Body height 172.[address] [facility] 03-23-2024 03:45-0400 Body mass index (BMI) [Ratio] 21.2 kg/m2 [facility] 12-25-2023 03:45-0400 Body weight 63.[address] [facility] 11-19-2023 17:30-0500 Body temperature 97.81 [degF] Krislyn Aberegg PA Work Phone: [facility] 11-19-2023 17:30-0500 Body weight 71.22 kg Krislyn Aberegg PA Work Phone: [facility] 11-19-2023 17:30-0500 Diastolic blood pressure 88 mm[Hg] Krislyn Aberegg PA Work Phone: [facility] 11-19-2023 17:30-0500 Heart rate 111 /min Krislyn Aberegg PA Work Phone: [facility] 11-19-2023 17:30-0500 Respiratory rate 18 /min Krislyn Aberegg PA Work Phone: [facility] 11-19-2023 17:30-0500 SaO2% (BldA) [Mass fraction] 100 % Krislyn Aberegg PA Work Phone: [facility] 11-19-2023 17:30-0500 Systolic blood pressure 132 mm[Hg] Krislyn Aberegg PA Work Phone: [facility] 06-05-2023 18:03-0400 Body height 172.[address] [facility] 06-05-2023 18:03-0400 Body mass index (BMI) [Ratio] 22.4 kg/m2 [facility] 06-05-2023 18:03-0400 Body temperature 97.1 [degF] [facility] 06-05-2023 18:03-0400 Body weight 66.[address] [facility] 06-05-2023 18:03-0400 Diastolic blood pressure 115 mm[Hg] [facility] 06-05-2023 18:03-0400 Heart rate 96 /min [facility] 06-05-2023 18:03-0400 Respiratory rate 18 /min [facility] 06-05-2023 18:03-0400 SaO2% (BldA) [Mass fraction] 99 % [facility] 06-05-2023 18:03-0400 Systolic blood pressure 141 mm[Hg] [facility] 02-28-2023 19:52-0400 Body height 172.[address] [facility] 02-28-2023 19:52-0400 Body mass index (BMI) [Ratio] 21.6 kg/m2 [facility] 02-28-2023 19:52-0400 Body temperature 98 [degF] [facility] 02-28-2023 19:52-0400 Body weight 64.[address] [facility] 02-28-2023 19:52-0400 Diastolic blood pressure 94 mm[Hg] [facility] 02-28-2023 19:52-0400 Heart rate 92 /min [facility] 02-28-2023 19:52-0400 Respiratory rate 16 /min [facility] 02-28-2023 19:52-0400 SaO2% (BldA) [Mass fraction] 98 % [facility] 02-28-2023 19:52-0400 Systolic blood pressure 128 mm[Hg] [facility] 02-03-2023 06:40-0400 Diastolic blood pressure 77 mm[Hg] [facility] 02-03-2023 06:40-0400 Heart rate 62 /min [facility] 02-03-2023 06:40-0400 Respiratory rate 15 /min [facility] 02-03-2023 06:40-0400 SaO2% (BldA) [Mass fraction] 97 % [facility] 02-03-2023 06:40-0400 Systolic blood pressure 108 mm[Hg] [facility] 02-03-2023 06:11-0400 Body height 172.[address] [facility] 02-03-2023 06:11-0400 Body temperature 99.4 [degF] [facility] 01-13-2023 06:11-0400 Body height 172.[address] [facility] 01-13-2023 06:11-0400 Body mass index (BMI) [Ratio] 21.9 kg/m2 [facility] 01-13-2023 06:11-0400 Body temperature 98.5 [degF] [facility] 01-13-2023 06:11-0400 Body weight 65.[address] [facility] 01-13-2023 06:11-0400 Diastolic blood pressure 74 mm[Hg] [facility] 01-13-2023 06:11-0400 Heart rate 74 /min [facility] 01-13-2023 06:11-0400 Respiratory rate 15 /min [facility] 01-13-2023 06:11-0400 SaO2% (BldA) [Mass fraction] 98 % [facility] 01-13-2023 06:11-0400 Systolic blood pressure 132 mm[Hg] [facility] 01-02-2023 21:09-0400 Body temperature 98.4 [degF] [facility] 01-02-2023 21:09-0400 Diastolic blood pressure 94 mm[Hg] [facility] 01-02-2023 21:09-0400 Heart rate 87 /min [facility] 01-02-2023 21:09-0400 Respiratory rate 18 /min [facility] 01-02-2023 21:09-0400 Systolic blood pressure 139 mm[Hg] [facility] 01-02-2023 21:05-0400 Body height 172.[address] [facility] 01-02-2023 21:05-0400 Body mass index (BMI) [Ratio] 21.4 kg/m2 [facility] 01-02-2023 21:05-0400 Body weight 63.[address] [facility] 01-02-2023 06:36-0400 Body height 172.[address] [facility] 01-02-2023 06:36-0400 Body mass index (BMI) [Ratio] 21.7 kg/m2 [facility] 01-02-2023 06:36-0400 Body temperature 98.2 [degF] [facility] 01-02-2023 06:36-0400 Body weight 64.[address] [facility] 01-02-2023 06:36-0400 Diastolic blood pressure 76 mm[Hg] [facility] 01-02-2023 06:36-0400 Heart rate 76 /min [facility] 01-02-2023 06:36-0400 Respiratory rate 17 /min [facility] 01-02-2023 06:36-0400 SaO2% (BldA) [Mass fraction] 98 % [facility] 01-02-2023 06:36-0400 Systolic blood pressure 141 mm[Hg] [facility] 12-31-2022 09:35-0400 Respiratory rate 16 /min [facility] 12-31-2022 08:55-0400 Body mass index (BMI) [Ratio] 20.3 kg/m2 [facility] 12-31-2022 08:55-0400 Body temperature 98 [degF] [facility] 12-31-2022 08:55-0400 Body weight 60.[address] [facility] 12-31-2022 08:55-0400 Diastolic blood pressure 70 mm[Hg] [facility] 12-31-2022 08:55-0400 Heart rate 79 /min [facility] 12-31-2022 08:55-0400 SaO2% (BldA) [Mass fraction] 99 % [facility] 12-31-2022 08:55-0400 Systolic blood pressure 112 mm[Hg] [facility] 12-01-2022 21:38-0500 Diastolic blood pressure 63 mm[Hg] [facility] 12-01-2022 21:38-0500 Heart rate 64 /min [facility] 12-01-2022 21:38-0500 Systolic blood pressure 127 mm[Hg] [facility] 12-01-2022 20:44-0500 Body height 172.[address] [facility] 12-01-2022 20:44-0500 Body mass index (BMI) [Ratio] 21.9 kg/m2 [facility] 12-01-2022 20:44-0500 Body temperature 99.3 [degF] [facility] 12-01-2022 20:44-0500 Body weight 65.[address] [facility] 12-01-2022 20:44-0500 Respiratory rate 18 /min [facility] 12-01-2022 20:44-0500 SaO2% (BldA) [Mass fraction] 95 % [facility] 10-10-2022 22:52-0500 Diastolic blood pressure 90 mm[Hg] [facility] 10-10-2022 22:52-0500 Heart rate 98 /min [facility] 10-10-2022 22:52-0500 Respiratory rate 15 /min [facility] 10-10-2022 22:52-0500 SaO2% (BldA) [Mass fraction] 99 % [facility] 10-10-2022 22:52-0500 Systolic blood pressure 136 mm[Hg] [facility] 10-10-2022 21:07-0500 Body mass index (BMI) [Ratio] 21.2 kg/m2 [facility] 10-10-2022 21:07-0500 Body temperature 97 [degF] [facility] 10-10-2022 21:07-0500 Body weight 63.[address] [facility] 10-02-2022 19:30-0500 Diastolic Blood Pressure Non-Invasive [address] MCKAYLA CARSON DO [facility] 10-02-2022 19:30-0500 Heart rate 112 /min DR MCKAYLA CARSON DO [facility] 10-02-2022 19:30-0500 Respiratory rate 18 /min DR MCKAYLA CARSON DO [facility] 10-02-2022 19:30-0500 Systolic Blood Pressure Non-Invasive [address] MCKAYLA CARSON DO [facility] 09-09-2022 13:19-0500 Body height 172.[address] [facility] Work Phone: 09-09-2022 13:19-0500 Body mass index (BMI) [Ratio] 19 kg/m2 [facility] 09-09-2022 13:19-0500 Body temperature 97.6 [degF] [facility] 09-09-2022 13:19-0500 Body weight 56.[address] [facility] 09-09-2022 13:19-0500 Diastolic blood pressure 88 mm[Hg] [facility] 09-09-2022 13:19-0500 Heart rate 98 /min [facility] 09-09-2022 13:19-0500 Respiratory rate 18 /min [facility] 09-09-2022 13:19-0500 SaO2% (BldA) [Mass fraction] 99 % [facility] 09-09-2022 13:19-0500 Systolic blood pressure 113 mm[Hg] [facility] 09-03-2022 17:27-0500 Respiratory rate 22 /min [facility] 09-03-2022 17:00-0500 Diastolic blood pressure 88 mm[Hg] [facility] 09-03-2022 17:00-0500 Systolic blood pressure 140 mm[Hg] [facility] 09-03-2022 12:40-0500 Body height 172.[address] [facility] Work Phone: 09-03-2022 12:40-0500 Body mass index (BMI) [Ratio] 20.5 kg/m2 [facility] 09-03-2022 12:40-0500 Body temperature 100 [degF] [facility] 09-03-2022 12:40-0500 Body weight 61.[address] [facility] 09-03-2022 12:40-0500 Heart rate 117 /min [facility] 09-03-2022 12:40-0500 SaO2% (BldA) [Mass fraction] 100 % [facility] 08-20-2022 11:21-0500 Body height 172.[address] [facility] Work Phone: 08-20-2022 11:21-0500 Body mass index (BMI) [Ratio] 19.8 kg/m2 [facility] 08-20-2022 11:21-0500 Body temperature 96.5 [degF] [facility] 08-20-2022 11:21-0500 Body weight 58.[address] [facility] 08-20-2022 11:21-0500 Diastolic blood pressure 92 mm[Hg] [facility] 08-20-2022 11:21-0500 Heart rate 102 /min [facility] 08-20-2022 11:21-0500 Respiratory rate 18 /min [facility] 08-20-2022 11:21-0500 SaO2% (BldA) [Mass fraction] 99 % [facility] 08-20-2022 11:21-0500 Systolic blood pressure 130 mm[Hg] [facility] 07-30-2022 14:56-0400 Body mass index (BMI) [Ratio] 20.7 kg/m2 [facility] Work Phone: 07-30-2022 14:56-0400 Body temperature 98.2 [degF] [facility] Work Phone: 07-30-2022 14:56-0400 Body weight 61.[address] [facility] Work Phone: 07-30-2022 14:56-0400 Diastolic blood pressure 82 mm[Hg] [facility] Work Phone: 07-30-2022 14:56-0400 Heart rate 98 /min [facility] Work Phone: 07-30-2022 14:56-0400 Respiratory rate 16 /min [facility] Work Phone: 07-30-2022 14:56-0400 SaO2% (BldA) [Mass fraction] 100 % [facility] Work Phone: 07-30-2022 14:56-0400 Systolic blood pressure 113 mm[Hg] [facility] Work Phone: 07-30-2022 03:00-0400 Heart rate 77 /min [facility] Work Phone: 07-30-2022 03:00-0400 Respiratory rate 15 /min [facility] Work Phone: 07-30-2022 03:00-0400 SaO2% (BldA) [Mass fraction] 99 % [facility] Work Phone: 07-30-2022 01:10-0400 Diastolic blood pressure 79 mm[Hg] [facility] Work Phone: 07-30-2022 01:10-0400 Systolic blood pressure 129 mm[Hg] [facility] Work Phone: 07-29-2022 21:11-0400 Body height 172.[address] [facility] Work Phone: 07-29-2022 21:11-0400 Body mass index (BMI) [Ratio] 19.8 kg/m2 [facility] Work Phone: 07-29-2022 21:11-0400 Body temperature 97.6 [degF] [facility] Work Phone: 07-29-2022 21:11-0400 Body weight 58.[address] [facility] Work Phone: 06-17-2022 20:24-0400 Body height 172.[address] [facility] Work Phone: 06-17-2022 20:24-0400 Body mass index (BMI) [Ratio] 20.5 kg/m2 [facility] Work Phone: 06-17-2022 20:24-0400 Body temperature 98.4 [degF] [facility] Work Phone: 06-17-2022 20:24-0400 Body weight 61.[address] [facility] Work Phone: 06-17-2022 20:24-0400 Diastolic blood pressure 73 mm[Hg] [facility] Work Phone: 06-17-2022 20:24-0400 Heart rate 95 /min [facility] Work Phone: 09-14-2022 20:24-0400 Respiratory rate 16 /min [facility] Work Phone: 06-17-2022 20:24-0400 SaO2% (BldA) [Mass fraction] 92 % [facility] Work Phone: 06-17-2022 20:24-0400 Systolic blood pressure 129 mm[Hg] [facility] Work Phone: 05-02-2022 02:30-0400 Body height 172.7 cm Emir Figueredo MD Work Phone: [facility] 05-02-2022 02:30-0400 Body mass index (BMI) [Ratio] 22.05 kg/m2 Emir Figueredo MD Work Phone: [facility] 05-02-2022 02:30-0400 Body temperature 98.29 [degF] Emir Figueredo MD Work Phone: [facility] 05-02-2022 02:30-0400 Body weight 65.77 kg Emir Figueredo MD Work Phone: [facility] 05-02-2022 02:30-0400 Diastolic blood pressure 82 mm[Hg] Emir Figueredo MD Work Phone: [facility] 05-02-2022 02:30-0400 Heart rate 114 /min Emir Figueredo MD Work Phone: [facility] 05-02-2022 02:30-0400 Respiratory rate 16 /min Emir Figueredo MD Work Phone: [facility] 05-02-2022 02:30-0400 SaO2% (BldA) [Mass fraction] 97 % Emir Figueredo MD Work Phone: [facility] 05-02-2022 02:30-0400 Systolic blood pressure 123 mm[Hg] Emir Figueredo MD Work Phone: [facility] 03-28-2022 17:11-0400 Diastolic blood pressure 79 mm[Hg] Bassem Elena MD Work Phone: [facility] 03-28-2022 17:11-0400 Heart rate 80 /min Bassem Elena MD Work Phone: [facility] 03-28-2022 17:11-0400 Respiratory rate 14 /min Bassem Elena MD Work Phone: [facility] 03-28-2022 17:11-0400 SaO2% (BldA) [Mass fraction] 100 % Bassem Elena MD Work Phone: [facility] 03-28-2022 17:11-0400 Systolic blood pressure 132 mm[Hg] Bassem Elena MD Work Phone: [facility] 03-28-2022 14:05-0400 Body height 172.7 cm Bassem Elena MD Work Phone: [facility] 03-28-2022 14:05-0400 Body mass index (BMI) [Ratio] 20.53 kg/m2 Bassem Elena MD Work Phone: [facility] 03-28-2022 14:05-0400 Body temperature 98.4 [degF] Bassem Elena MD Work Phone: [facility] 03-28-2022 14:05-0400 Body weight 61.24 kg Bassem Elena MD Work Phone: [facility] 03-27-2022 15:10-0400 Body height 172.7 cm Kevin Igll PA-C Work Phone: [facility] 03-27-2022 15:10-0400 Body temperature 98.6 [degF] Kevin Gill PA-C Work Phone: [facility] 03-27-2022 15:10-0400 Body weight 63.96 kg Kevin Gill PA-C Work Phone: [facility] 03-27-2022 15:10-0400 Diastolic blood pressure 88 mm[Hg] Kevin Gill PA-C Work Phone: [facility] 03-27-2022 15:10-0400 Heart rate 106 /min Kevin Gill PA-C Work Phone: [facility] 03-27-2022 15:10-0400 Respiratory rate 16 /min Kevin Gill PA-C Work Phone: [facility] 03-27-2022 15:10-0400 SaO2% (BldA) [Mass fraction] 96 % Kevin Gill PA-C Work Phone: [facility] 03-27-2022 15:10-0400 Systolic blood pressure 110 mm[Hg] Kevin Gill PA-C Work Phone: [facility] 03-23-2022 19:39-0400 Body height 172.7 cm Florecita Caruso MD Work Phone: [facility] 03-23-2022 19:39-0400 Body mass index (BMI) [Ratio] 20.53 kg/m2 Florecita Caruso MD Work Phone: [facility] 03-23-2022 19:39-0400 Body temperature 98.8 [degF] Florecita Caruso MD Work Phone: [facility] 03-23-2022 19:39-0400 Body weight 61.24 kg Florecita Caruso MD Work Phone: [facility] 03-23-2022 19:39-0400 Diastolic blood pressure 79 mm[Hg] Florecita Caruso MD Work Phone: [facility] 03-23-2022 19:39-0400 Heart rate 94 /min Florecita Caruso MD Work Phone: [facility] 03-23-2022 19:39-0400 Respiratory rate 18 /min Florecita Caruso MD Work Phone: [facility] 03-23-2022 19:39-0400 SaO2% (BldA) [Mass fraction] 99 % Florecita Caruso MD Work Phone: [facility] 03-23-2022 19:39-0400 Systolic blood pressure 123 mm[Hg] Florecita Caruso MD Work Phone: [facility] 03-17-2022 19:10-0400 Body temperature 98.2 [degF] Wally Burleson MD Work Phone: [facility] 03-17-2022 19:10-0400 Diastolic blood pressure 82 mm[Hg] Wally Burleson MD Work Phone: [facility] 03-17-2022 19:10-0400 Heart rate 96 /min Wally Burleson MD Work Phone: [facility] 03-17-2022 19:10-0400 Respiratory rate 18 /min Wally Burleson MD Work Phone: [facility] 03-17-2022 19:10-0400 SaO2% (BldA) [Mass fraction] 99 % Wally Burleson MD Work Phone: [facility] 03-17-2022 19:10-0400 Systolic blood pressure 131 mm[Hg] Wally Burleson MD Work Phone: [facility] 02-16-2022 20:02-0400 Body temperature 97.9 [degF] Lynn Brenda DO Work Phone: [facility] 02-16-2022 20:02-0400 Diastolic blood pressure 88 mm[Hg] Lynn Brenda DO Work Phone: [facility] 02-16-2022 20:02-0400 Heart rate 98 /min Lynn Brenda DO Work Phone: [facility] 02-16-2022 20:02-0400 Respiratory rate 18 /min Lynn Brenda DO Work Phone: [facility] 02-16-2022 20:02-0400 SaO2% (BldA) [Mass fraction] 97 % Lynn Brenda DO Work Phone: [facility] 02-16-2022 20:02-0400 Systolic blood pressure 122 mm[Hg] Lynn Brenda DO Work Phone: [facility] 12-19-2021 09:29-0400 Body temperature 98.78 [degF] JENNIFER VALLES MD [facility] 12-19-2021 09:29-0400 Body weight 65.8 kg JENNIFER VALLES MD [facility] 12-19-2021 09:29-0400 Diastolic blood pressure 75 mm[Hg] JENNIFER VALLES MD [facility] 12-19-2021 09:29-0400 Heart rate 97 /min JENNIFER VALLES MD [facility] 12-19-2021 09:29-0400 Respiratory rate 16 /min JENNIFER VALLES MD [facility] 12-19-2021 09:29-0400 Systolic blood pressure 142 mm[Hg] JENNIFER VALLES MD [facility] 12-16-2021 22:42-0400 Body height 172.7 cm Wally Burleson MD Work Phone: [facility] 12-16-2021 22:42-0400 Body mass index (BMI) [Ratio] 21.13 kg/m2 Wally Burleson MD Work Phone: [facility] 12-16-2021 22:42-0400 Body temperature 98.1 [degF] Wally Burleson MD Work Phone: [facility] 12-16-2021 22:42-0400 Body weight 63.05 kg Wally Burleson MD Work Phone: [facility] 12-16-2021 22:42-0400 Diastolic blood pressure 95 mm[Hg] Wally Burleson MD Work Phone: [facility] 12-16-2021 22:42-0400 Heart rate 97 /min Wally Burleson MD Work Phone: [facility] 12-16-2021 22:42-0400 Respiratory rate 18 /min Wally Burleson MD Work Phone: [facility] 12-16-2021 22:42-0400 SaO2% (BldA) [Mass fraction] 98 % Wally Burleson MD Work Phone: [facility] 12-16-2021 22:42-0400 Systolic blood pressure 140 mm[Hg] Wally Burleson MD Work Phone: [facility] 10-04-2021 19:16-0500 Body height 172.7 cm Tereso Kuo MD Work Phone: [facility] 10-04-2021 19:16-0500 Body mass index (BMI) [Ratio] 22.5 kg/m2 Tereso Kuo MD Work Phone: [facility] 10-04-2021 19:16-0500 Body temperature 99.1 [degF] Tereso Kuo MD Work Phone: [facility] 10-04-2021 19:16-0500 Body weight 67.13 kg Tereso Kuo MD Work Phone: [facility] 10-04-2021 19:16-0500 Diastolic blood pressure 86 mm[Hg] Tereso Kuo MD Work Phone: [facility] 10-04-2021 19:16-0500 Heart rate 92 /min Tereso Kuo MD Work Phone: [facility] 10-04-2021 19:16-0500 Respiratory rate 16 /min Tereso Kuo MD Work Phone: [facility] 10-04-2021 19:16-0500 SaO2% (BldA) [Mass fraction] 96 % Tereso Kuo MD Work Phone: [facility] 10-04-2021 19:16-0500 Systolic blood pressure 110 mm[Hg] Tereso Kuo MD Work Phone: [facility] 08-16-2021 19:03-0500 Diastolic blood pressure 84 mm[Hg] Florecita Lombardi MD Work Phone: [facility] 08-16-2021 19:03-0500 Heart rate 84 /min Florecita Lombardi MD Work Phone: [facility] 08-16-2021 19:03-0500 Respiratory rate 18 /min Florecita Lombardi MD Work Phone: [facility] 08-16-2021 19:03-0500 SaO2% (BldA) [Mass fraction] 97 % Florecita Lombardi MD Work Phone: [facility] 08-16-2021 19:03-0500 Systolic blood pressure 127 mm[Hg] Florecita Lombardi MD Work Phone: [facility] 08-16-2021 18:07-0500 Body height 172.7 cm Florecita Lombardi MD Work Phone: [facility] 08-16-2021 18:07-0500 Body mass index (BMI) [Ratio] 20.53 kg/m2 Florecita Lombardi MD Work Phone: [facility] 08-16-2021 18:07-0500 Body temperature 99.7 [degF] Florecita Lombardi MD Work Phone: [facility] 08-16-2021 18:07-0500 Body weight 61.24 kg Florecita Lombardi MD Work Phone: [facility] Encounters Encounter Date Encounter Type Care Provider Facility Start: 04-27-2025 End: 04-27-2025 Office outpatient visit 25 minutes Emir Simons PA-C Work Phone: [facility] Comment on above: Acute non-recurrent sinusitis, unspecified location (Primary Dx) Start: 04-27-2025 End: 04-27-2025 ambulatory DALTON ART Facility:[facility] Start: 04-05-2025 End: 04-05-2025 Emergency department patient visit No Primary Care Physician -Emergency Department Work Phone: Start: 03-19-2025 End: 03-19-2025 Emergency department patient visit No Primary Care Physician -Emergency Department Work Phone: Start: 12-14-2024 End: 12-14-2024 ambulatory DALTON ART Facility:[facility] Start: 12-14-2024 End: 12-14-2024 Office outpatient visit 15 minutes Alex Landers MD Work Phone: [facility] Comment on above: Post-nasal drainage (Primary Dx) Start: 12-06-2024 End: 12-06-2024 Emergency department patient visit Dr. Marco Antonio Cintron MD -Emergency Department Work Phone: Start: 10-13-2024 End: 10-13-2024 Emergency department patient visit No Primary Care Physician Facility:[facility] Start: 09-19-2024 End: 09-19-2024 Emergency department patient visit Michel Elena Facility:[facility] Start: 09-11-2024 End: 09-11-2024 Emergency department patient visit Ed Physician Provider Facility:[facility] Start: 08-20-2024 End: 08-20-2024 Emergency department patient visit No Primary Care Physician Facility:[facility] Start: 07-04-2024 End: 07-04-2024 Emergency department patient visit Nolan Brady Facility:[facility] Start: 06-16-2024 End: 06-16-2024 Emergency department patient visit No Primary Care Physician Facility:[facility] Start: 12-25-2023 End: 12-25-2023 Emergency department patient visit [facility] Work Phone: Start: 11-19-2023 End: 11-19-2023 Patient encounter procedure Travis KLEIN Work Phone: [facility] Comment on above: Mouth sore (Primary Dx); Bacterial sinusitis Start: 06-05-2023 End: 06-05-2023 Emergency department patient visit [facility] Work Phone: Start: 02-28-2023 End: 02-28-2023 Emergency department patient visit [facility] Start: 02-03-2023 End: 02-03-2023 Emergency department patient visit [facility] Start: 01-13-2023 End: 01-13-2023 Emergency department patient visit [facility] Start: 01-02-2023 End: 01-03-2023 Emergency department patient visit [facility] Start: 01-02-2023 End: 01-02-2023 Emergency department patient visit [facility] Start: 12-31-2022 End: 12-31-2022 Emergency department patient visit [facility] Start: 12-01-2022 End: 12-01-2022 Emergency department patient visit [facility] Start: 10-10-2022 End: 10-10-2022 Emergency department patient visit [facility] Start: 10-02-2022 End: 10-02-2022 Emergency department patient visit DR. MCKAYLA CARSON DO Facility:[facility] Start: 10-02-2022 End: 10-02-2022 Emergency department patient visit DR MCKAYLA CARSON DO [facility] Start: 09-09-2022 End: 09-09-2022 Emergency department patient visit [facility] Start: 09-03-2022 End: 09-03-2022 Emergency department patient visit [facility] Start: 08-20-2022 End: 08-20-2022 Emergency department patient visit [facility] Start: 07-30-2022 End: 07-30-2022 Emergency department patient visit [facility] Start: 07-29-2022 End: 07-30-2022 Emergency department patient visit [facility] Start: 06-30-2022 Telephone encounter Kevin rivero PA-C Work Phone: Urology Comment on above: 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 [place] Comment on above: Acute cystitis with hematuria (Primary Dx) Start: 03-30-2022 End: 03-31-[address] NEVAEH FRAGA MD. Facility:[facility] Start: 03-30-2022 End: 03-30-[address] NEVAEH FRAGA MD [facility] Start: 03-30-2022 Telephone encounter Kevin thurmanerendira PA-C Work Phone: Urology Comment on above: Results Start: 03-28-2022 End: 03-28-2022 Emergency department patient visit Bassem Elena MD Work Phone: [facility] [place] Comment on above: Abnormal laboratory test (Primary Dx); Anxiety state Start: 03-27-2022 End: 03-27-2022 Patient encounter procedure Kevin Shepherdoney PA-C Work Phone: Urology Comment on above: Dysuria (Primary Dx) Start: 03-25-2022 Telephone encounter Kevin thurmanerendira KLEIN-C Work Phone: Urology Comment on above: Received Outside Med ical Records Start: 03-23-2022 End: 03-23-2022 Emergency department patient visit Florecita Caruso MD Work Phone: [facility] [place] Comment on above: Dysuria (Primary Dx) ; Anxiety state Start: 03-17-2022 End: 03-17-2022 Emergency department patient visit Wally Burleson MD Work Phone: [facility] [place] Comment on above: Dysuria (Primary Dx) Start: 02-16-2022 End: 02-16-2022 Emergency department patient visit Lynn Gutierrez Work Phone: [facility] [place] Comment on above: Seasonal allergic rh initis due to pollen (Primary Dx) Start: 02-11-[address] NEVAEH FRAGA MD. Facility:[facility] Start: 02-03-[address] NEVAEH FRAGA MD. Facility:[facility] Start: 12-19-2021 End: 12-19-2021 Emergency department patient visit DR. NEVAEH FRAGA MD. Facility:[facility] Start: 12-19-2021 End: 12-19-2021 Emergency department patient visit JENNIFER VALLES MD [facility] Start: 12-16-2021 End: 12-16-2021 Emergency department patient visit Wally Burleson MD Work Phone: [facility] Comment on above: Anxiety state (Prima ry Dx) Start: 10-04-2021 End: 10-04-2021 Emergency department patient visit Tereso Kuo MD Work Phone: [facility] Comment on above: Acute nonintractable headache, unspecified headache type (Primary Dx) Start: 08-16-2021 End: 08-16-2021 Emergency department patient visit Florecita Lombardi MD Work Phone: [facility] Comment on above: Bronchitis (Primary Dx) Start: 04-10-2017 End: 04-11-2017 Emergency department patient visit REBEL Ritchie MAYRAMIGUEL Facility:[facility] Start: 04-09-2017 End: 04-10-2017 Emergency department patient visit MILE SANCHEZ Facility:[facility] Start: 01-07-2017 End: 01-07-2017 Patient encounter procedure JOSSY MURILLO Facility:[facility] Procedures Date Procedure Procedure Detail Performing Clinician Start: 04-05-2025 CT of head without contrast No Primary Care Physician Start: 12-25-2023 CT of abdomen and pelvis without contrast Start: 06-05-2023 Diagnostic radiography of abdomen Start: 07-30-2022 Plain X-ray abdomen Start: 05-02-2022 Urnls dip stick/tablet rgnt auto w/o microscopy Emir Figueredo MD Work Phone: Start: 03-28-2022 Computed [...] MURILLO Start: 01-07-2017 Extraction erupted tooth/exr JOSSY MURILLO Start: 01-07-2017 Impact tooth remov part [...] Treatment Date Care Activity Detail Author Start: 04-05-2035 Urine microalbumin profile DTa P,Tdap,Td Vaccine (8 - Td or Tdap) [facility] Start: 05-22-2026 DTaP/Tdap/Td vaccine (2 - Td or Tdap) DTaP/Tdap/Td vaccine (2 - Td or Tdap) [facility] Start: 05-22-2026 Urine microalbumin profile DTa P,Tdap,Td Vaccine (7 - Td or Tdap) [facility] Start: 06-04-2025 Influenza vaccination Influenz a Vaccine (#1) [facility] Start: 04-05-2025 End: 04-05-2025 [facility] Start: 03-19-2025 End: 03-19-2025 [facility] Start: 12-06-2024 [facility] Start: 10-04-2024 Medicare Advantage A nnual Wellness Visit Medicare Advantage Annual Wellness Visit [facility] Start: 06-04-2024 Covid-19 Vaccine ( season) Covid-19 Vaccine ( season) [facility] Start: 06-04-2024 Influenza vaccination Influenz a Vaccine (#1) [facility] Start: 12-25-2023 End: 12-25-2023 [facility] Start: 10-04-2023 Depression Assessment Depression Ass [facility] Start: 06-05-2023 [facility] Start: 01-02-2023 Emergency department visit low/moder severity EMERGENCY DEPT VISIT [facility] Start: 2022 Lipid panel Lipid Screening [facility] Start: 06-04-2022 Influenza vaccination S [facility] Start: 10-04-2021 DEPRESSION ASSESSMENT DEPRESSION ASS [facility] Start: 06-04-2021 Influenza vaccination Flu vaccine (# 1) [facility] Start: 2006 Urine microalbumin profile DTA P,TDAP,TD (1 - Tdap) [facility] Start: 2005 Anxiety Screening Anxiety Screening [facility] Start: 2005 Depression Screening Depression Scre [facility] Start: 2005 HEPATITIS C SCREENING HEPATITIS C [facility] Start: 2005 Hepatitis C screening Hepatitis C [facility] Start: 2005 HIV SCREENING HIV SCREENING [facility] Start: 2005 HIV screening HIV Screening [facility] Start: 08-18-2000 Hepatitis B Vaccine (2 of 3 - 3-dose series) Hepatitis B Vaccine (2 of 3 - 3-dose series) [facility] Start: 1999 Adult depression scr eening assessment DEPRESSION SCREENING [facility] Start: 1999 COVID-19 Vaccine (1) COVID-19 Vaccin e (1) [facility] Start: 1992 COVID-19 VACCINE (#1) COVID-19 VACCI NE (#1) [facility] Start: 1992 COVID-19 Vaccine (1) COVID-19 Vaccin e (1) [facility] Start: 01-09-1988 COVID-19 Vaccine (#1) COVID-19 Vacci ne (#1) [facility] Start: 1987 HEPATITIS B (1 of 3 - 3-dose series) HEPATITIS B (1 of 3 - 3-dose series) [facility] Bacteria identified in Urine by Culture URINE CULTURE Microbiology Routine Dysuria 03/27/2022 3:49 PM EDT [facility] Work Phone: End: 03-17-2022 C. [...] rences starting 05/02/2022 until 05/02/2022 Microscopic urinalysis [facility] Work Phone: Organism count, micr oscopic method [facility] Work Phone: Patient Education [facility] Work Phone: Patient referral [facility] Work Phone: Streptococcus pyogen es Ag [Presence] in Throat by Immunofluorescence [facility] Work Phone: Urinalysis, blood, qualitative [facility] Work Phone: Urine microscopy: ep ithelial cells [facility] Work Phone: White blood cell count [facility] Work Phone: [facility] Immunizations Immunization Date Immunization Notes Care Provider Fa cili 04-05-2025 tetanus toxoid, redu jerrell diphtheria toxoid, and acellular pertussis vaccine, adsorbed No Primary Care Physician [facility] 07-13-2023 influenza virus vacc ine, unspecified formulation Alex Landers MD Work Phone: [facility] 08-23-2020 influenza virus vacc ine, unspecified formulation JENNIFER VALLES MD [facility] 08-15-2020 influenza virus vacc ine, unspecified formulation JENNIFER VALLES MD [facility] 07-29-2019 influenza virus vacc ine, unspecified formulation JENNIFER VALLES MD [facility] 07-11-2018 influenza virus vacc ine, unspecified formulation JENNIFER VALLES MD [facility] 07-04-2018 influenza virus vacc ine, unspecified formulation JENNIFER VALLES MD [facility] 07-01-2017 influenza virus vacc ine, unspecified formulation JENNIFER VALLES MD [facility] 05-22-2016 tetanus toxoid, redu jerrell diphtheria toxoid, and acellular pertussis vaccine, adsorbed JNENIFER VALLES MD [facility] 07-20-2014 influenza virus vacc ine, unspecified formulation JENNIFER VALLES MD [facility] 07-20-2014 influenza, seasonal, injectable Kevin Gill PA-C Work Phone: [facility] 07-20-2014 pneumococcal polysaccharide vaccine, 23 valent JENNIFER VALLES MD [facility] 07-21-2000 hepatitis B pediatri c vaccine JENNIFER VALLES MD [facility] 07-21-2000 measles/mumps/rubell a virus vaccine JENNIFER VALLES MD [facility] 10-16-1988 measles/mumps/rubell a virus vaccine JENNIFER VALLES MD [facility] Payers Date Payer Category Payer Self-pay [id number] 2024 Unknown [id number] 2023 Medicare (Managed Care) KARISSA LAUREANODEX MEDICARE [id number] 2016 Medicaid [employer] [id number] 2016-Present [phone] [address] [place] [address] Medicaid [id number] 2016 Medicaid [id number] 2015 Unknown [id number] 1987 Unknown [id number] 2.16.840.1.756936.3.579.2. 732 1987 Unknown [id number] 2.16.840.1.002153.3.579.2. 627 1987 Unknown [id number] 2.16.840.1.622563.3.579.2. 627 1987 Unknown [id number] 2.16.840.1.764087.3.579.2. 627 1987 Unknown [id number] 2.16.840.1.677370.3.579.2. 627 1987 Unknown [id number] 2.16.840.1.141688.3.579.2. 627 Unknown [id number] 2.16.840.1.449279.3.579.2. 462 Unknown [id number] 2.16.840.1.823220.3.579.2. 462 Unknown [id number] 2.16.840.1.130255.3.579.2. 462 Unknown [id number] 2.16.840.1.001600.3.579.2. 462 Unknown [id number] 2.16.840.1.462034.3.579.2. 462 Unknown [id number] 2.16.840.1.258285.3.579.2. 462 Unknown [id number] 2.16.840.1.741557.3.579.2. 462 Unknown [id number] 2.16.840.1.895600.3.579.2. 462 Unknown [id number] 2.16.840.1.518505.3.579.2. 462 Social History Date Type Detail Facility Start: 10-04-2016 Tobacco smoking stat us [facility] Occasional tobacco smoker [facility] Work Phone: Start: 10-04-2016 End: 04-27-2025 Tobacco use and exposure User of smokeless tobacco [facility] Work Phone: Start: 08-16-2021 End: 04-27-2025 Alcohol intake Current drinker of alcohol (finding) [facility] Work Phone: Start: 10-04-2016 History SDOH Alcohol Comment socially [facility] Work Phone: Start: 1985 Sex Assigned At Not on file [facility] Work Phone: Start: 02-06-2022 End: 05-02-2022 Exposure to SARS-CoV-2 (event) Not sure [facility] Start: 12-15-2021 End: 04-27-2025 Tobacco smoking status NHIS Ex-smoker [facility] Start: 12-16-2021 End: 05-02-2022 Alcohol intake Ex-drinker (finding) [facility] Work Phone: Start: 08-15-2018 End: 12-25-2023 Tobacco smoking consumption unknown (finding) [facility] Smokeless tobacc o user within last 30 days [facility] Sex Assigned At [facility] History of tobacco use Chews Tobacco [facility] Work Phone: Start: 08-20-2015 End: 04-27-2025 Cigarettes smoked current (pack per day) - Reported 0.3 [facility] History of tobacco use Snuff User [facility] Start: 07-20-2014 History SDOH Alcohol Comment occasional [facility] Start: 06-17-2015 End: 11-19-2023 Tobacco Comment vapor cigarettes [facility] History of tobacco use Current smoker [facility] Work Phone: Start: 04-15-2020 None [facility] Start: 12-01-2015 Alone [facility] Start: 1985 Sex Assigned At Male [facility] History of tobacco use Cigarette Smoker C [facility] Start: 11-19-2023 End: 04-27-2025 Tobacco use panel [facility] Start: 03-19-2025 End: 04-05-2025 Tobacco smoking status NHIS Smokes tobacco daily (finding) [facility] Functional Status Date Assessment Result Facility 10-02-2022 Functional Status Room check performed [facility] 04-23-2015 Are you deaf, or do you have serious difficulty hearing No 04/23/2015 7:35 PM EDT Flores Navarro LPN No [facility] 04-23-2015 Are you blind, or do you have serious difficulty seeing, even when wearing glasses No 04/23/2015 7:35 PM EDT Flores Navarro LPN No [facility] 04-23-2015 Do you have serious difficulty walking or climbing stairs No 04/23/2015 7:35 PM EDT Flores Navarro LPN No [facility] 04-23-2015 Do you have difficul ty dressing or bathing No 04/23/2015 7:35 PM EDT Flores Navarro LPN No [facility] 04-23-2015 Because of a physica l, mental, or emotional condition, do you have difficulty doing errands alone such as visiting a physician's office or shopping No 04/23/2015 7:35 PM EDT Flores Navarro LPN No [facility] Mental Status Date Assessment Result Facility 12-06-2024 Cognitive function Level Of Cons ciousness Awake;Alert;Appropriate;Fol lows Commands [facility] Work Phone: 01-13-2023 Cognitive function Level Of Cons ciousness Awake;Alert;Appropriate;Fol lows Commands [facility] Work Phone: 10-02-2022 Mental Status Orientation Oriented x 4 [facility] 10-02-2022 Mental Status [facility] 07-30-2022 Cognitive function Level Of Cons ciousness Awake;Alert;Appropriate;Fol lows Commands [facility] Work Phone: 06-17-2022 Cognitive function Level Of Cons ciousness Awake;Alert;Appropriate;Fol lows Commands [facility] Work Phone: 04-23-2015 Because of a physica l, mental, or emotional condition, do you have serious difficulty concentrating, remembering, or making decisions Yes 04/23/2015 7:35 PM EDT Flores Navarro LPN Yes [facility] Clinical Notes 08-16-2021 to 04-27-2025 Eimr Simons PA-C - 04/27/2025 6:38 PM EDTMAlex Villegas MD - 12/14/2024 7:00 PM Travis Hall PA - 11/19/2023 5:55 PM EST Note Date & Type Note Facility 04-27-2025 Note HNO ID: [id number] Author: EMIR SIMONS PA-C Service: ? Author Type: Physician Childhood Development Teacher Type: Progress Notes Filed: 04/27/2025 18:40 Note Text: [facility] Tabby Johnson is a 39 year old male. Patient presents with: Sore Throat: X1.5 weeks Patient is a 39-year-old male who complains of ongoing congestion, sinus pressure, sore throat and cough that he has been experiencing for the past 1-1/2 weeks. Patient reports no fever, chills or myalgia. Sore Throat Associated symptoms include congestion and coughing. Review of Systems HENT: Positive for congestion, postnasal drip and sore throat. Respiratory: Positive for cough. All other systems reviewed and are negative. Objective BP 141/81 Pulse 83 Temp 36.6 ?C (97.8 ?F) Resp 18 Wt 70 kg (154 lb 5.2 oz) SpO2 96% BMI 23.46 kg/m? Physical Exam Vitals and nursing note reviewed. Constitutional: Appearance: Normal appearance. He is normal weight. HENT: Head: Normocephalic and atraumatic. Right Ear: Tympanic membrane, ear canal and external ear normal. Left Ear: Tympanic membrane, ear canal and external ear normal. Nose: Nose normal. Mouth/Throat: Mouth: Mucous membranes are moist. Pharynx: Oropharynx is clear. Eyes: Extraocular Movements: Extraocular movements intact. Conjunctiva/sclera: Conjunctivae normal. Pupils: Pupils are equal, round, and reactive to light. Cardiovascular: Rate and Rhythm: Normal rate and regular rhythm. Pulses: Normal pulses. Heart sounds: Normal heart sounds. Pulmonary: Effort: Pulmonary effort is normal. Breath sounds: Normal breath sounds. Musculoskeletal: Cervical back: Normal range of motion and neck supple. Skin: General: Skin is warm and dry. Capillary Refill: Capillary refill takes less than 2 seconds. Neurological: General: No focal deficit present. Mental Status: He is alert and oriented to person, place, and time. Psychiatric: Mood and Affect: Mood normal. Behavior: Behavior normal. Thought Content: Thought content normal. Judgment: Judgment normal. MDM Physical exam findings as noted above. Due to documented allergy to penicillin, patient was provided with prescriptions for doxycycline 100 mg and Tessalon 100 mg. Supportive care instructions were discussed the patient verbalizes good understanding of same. CLINICAL IMPRESSION: Acute Sinusitis ASSESSMENT/PLAN: 1. Acute non-recurrent sinusitis, unspecified location - ICD9: 461.9, ICD10: J01.90 - DOXYCYCLINE HYCLATE 100 MG TABLET - BENZONATATE 100 MG CAPSULE [facility] Risk of Complications, Morbidity, and/or Mortality Presenting problems: low Diagnostic procedures: low Management options: edith Simons PA-C [facility] 04-27-2025 History of Present illness Narrative [facility] Subjective Gilberto Johnson is a 39 year old male. Patient presents with: Sore Throat: X1.5 weeks Patient is a 39-year-old male who complains of ongoing congestion, sinus pressure, sore throat and cough that he has been experiencing for the past 1-1/2 weeks. Patient reports no fever, chills or myalgia. Sore Throat Associated symptoms include congestion and coughing. Review of Systems HENT: Positive for congestion, postnasal drip and sore throat. Respiratory: Positive for cough. All other systems reviewed and are negative. Objective BP 141/81 Pulse 83 Temp 36.6 C (97.8 F) Resp 18 Wt 70 kg (154 lb 5.2 oz) SpO2 96% BMI 23.46 kg/m Physical Exam Vitals and nursing note reviewed. Constitutional: Appearance: Normal appearance. He is normal weight. HENT: Head: Normocephalic and atraumatic. Right Ear: Tympanic membrane, ear canal and external ear normal. Left Ear: Tympanic membrane, ear canal and external ear normal. Nose: Nose normal. Mouth/Throat: Mouth: Mucous membranes are moist. Pharynx: Oropharynx is clear. Eyes: Extraocular Movements: Extraocular movements intact. Conjunctiva/sclera: Conjunctivae normal. Pupils: Pupils are equal, round, and reactive to light. Cardiovascular: Rate and Rhythm: Normal rate and regular rhythm. Pulses: Normal pulses. Heart sounds: Normal heart sounds. Pulmonary: Effort: Pulmonary effort is normal. Breath sounds: Normal breath sounds. Musculoskeletal: Cervical back: Normal range of motion and neck supple. Skin: General: Skin is warm and dry. Capillary Refill: Capillary refill takes less than 2 seconds. Neurological: General: No focal deficit present. Mental Status: He is alert and oriented to person, place, and time. Psychiatric: Mood and Affect: Mood normal. Behavior: Behavior normal. Thought Content: Thought content normal. Judgment: Judgment normal. MDM Physical exam findings as noted above. Due to documented allergy to penicillin, patient was provided with prescriptions for doxycycline 100 mg and Tessalon 100 mg. Supportive care instructions were discussed the patient verbalizes good understanding of same. CLINICAL IMPRESSION: Acute Sinusitis ASSESSMENT/PLAN: 1. Acute non-recurrent sinusitis, unspecified location - ICD9: 461.9, ICD10: J01.90 - DOXYCYCLINE HYCLATE 100 MG TABLET - BENZONATATE 100 MG CAPSULE [facility] Risk of Complications, Morbidity, and/or Mortality Presenting problems: low Diagnostic procedures: low Management options: low Emir Simons PA-C documented in this encounter [facility] 04-05-2025 Discharge summary [facility] 04-05-2025 Radiology Diagnostic study note [facility] Imaging Services [address] [place], [place] [address] Brain/Head without Contrast MR#: [id number] Acct: [id number] Name: GILBERTO JOHNSON Rep #: [id number] : 1985 M 39 From: Nina Foster MD PCP: Care Physician,No Primary Status: REG ER Study:Brain/Head without Contrast Date of Exa m: 04/05/25 Exam# [id number] Ordering Dr: Chidi Xiao DO PROCEDURE: BRAIN/HEAD WITHOUT CONTRAST 04/05/2025 REASON FOR EXAM: CLOSE HEAD INJURY TECHNIQUE: BRAIN/HEAD WITHOUT CONTRAST Coronal and Sagittal reconstruction series were provided. One or more dose reduction techniques were used (e.g., Automated exposure control, adjustment of the mA and/or kV according to patient size, use of iterative reconstruction technique. RADIATION DOSE SUMMARY: CTDlvol: 45 mGy DLP: 830 mGycm COMPARISON: No FINDINGS: No abnormal brain densities. No intracranial hemorrhage. No hydrocephalus or midline shift. Small posterior scalp swelling. Unremarkable orbits. No skull fracture. Clear sinuses. CT/Brain/Head without Contrast IMPRESSION: No acute intracranial findings Reading Location: [place] [address] CC: Dr. Chidi Hermosillo DO; No Primary Care Physician ~ Physician Office Assistant: Signed [facility] 12-14-2024 Note HNO ID: [id number] Author: ALEX LANDERS MD Service: ? Author Type: Physician Type: Progress Notes Filed: 12/14/2024 19:08 Note Text: [facility] Subjective Gilberto Johnson is a 39 [...] cetirizine and expectant management. Alex Landers MD [facility] 12-14-2024 History of Present illness Narrative [facility] Subjective Gilberto [...] expectant management. Alex Landers MD MDM Procedures documented in this encounter [facility] 11-19-2023 History of Present illness Narrative This note was created using Pingu[employer]. Subjective Gilberto Johnson is a 38 year [...] RELIEF) 50 mcg/actuation nasal spray Use 1 Wilkinson in each nostril twice daily. loratadine (CLARITIN) 10 mg tablet Take 1 tablet by mouth once daily. naproxen (NAPROSYN) 500 mg tablet Take 1 tablet by mouth twice daily as needed (pain/inflammation, take with food.). uyivatmqaaYXAMM-zjktyu-fxzxmkrru (BMX 1:1:1) 1:1:1 liqd Mix in equal [...] evaluation. LATOYA Kendrick documented in this encounter [facility] 01-02-2023 Hospital Discharge instructions Additional Instructions Please continue your antibiotic that was given to you at your last visit and wash the area with soap and water. The remaining redness and swelling will resolve over the next 2 to 3 days and then the scab will form. [facility] Work Phone: 12-01-2022 Discharge summary Note Date/Time December 01, 2022 9:28pm [facility] Medical Records Department [address] [place] [address] Emergency Department Summary 12/01/22 MR#: [id number] Acct: [id number] Name: GILBERTO JOHNSON Rep #:[id number] : [...] your Primary Care Provider. Call [facility] ([phone]) or report to the closest Emergency Room. Call 911 if necessary. 12/01/222129 <Electronically signed by Michel Elena MD> Cosigner Signature (if applicable): CC: NEVAEH FRAGA ~ Signed [facility] Work Phone: 1(940) 523-549912-30-2022 Hospital Discharge instructions Patient Education 10/02/2022 20:40:33 [...] in 1/2 cup of warm water An xugw-qjm-tvsrshn anesthetic gargle Use medicine for more relief Zioc-elg-uzyoixj medicine can reduce sore throat symptoms. Ask [...] swollen glands in the neck or jaw [phone] [employer] [place] [address], [place] [address]. All rights reserved. This information is not intended as a substitute for professional medical care. Always follow yourhealthcare professional's instructions. Follow Up Care 10/02/2022 19:21:21 With:NEVAEH FRAGA MD Address: [address] [place] [phone] When:2-4 days [facility] 12-30-2022 Emergency department Discharge summary Discharge Instructions Thank you for allowing [facility] to assist you with your healthcare needs. The following is importantdischarge information regarding your hospital visit. Diagnosis from Today's Visit swollen gland in throat What to Do Next Instructions from Your Care Team No qualifying data available. Post Acute Orders No qualifying data available. You Need to Schedule the Following Appointments Follow Up with NEVAEH FRAGA MD When Within 2-4 days Where: [address] [place] [phone] Allergies amoxicillin penicillin (Rash) Medications Please ask [...] in 1/2 cup of warm water An sxvr-bhw-sipmgpa anesthetic gargle Use medicine for more relief Ufmq-cms-myjnfga medicine can reduce sore throat symptoms. Ask [...] swollen glands in the neck or jaw [phone] [employer] [place] [address]. All rights reserved. This information is not intended as a substitute for professional medical care. Always follow yourhealthcare professional's instructions. Additional Information VACCINATE! IT SAVES LIVES! Members of the community who have not yet received the COVID-19 vaccine and would like to receive it can visit one of [facility] vaccine clinics. There are many vaccine clinic locations within the [facility]. For locations and available times, please visit [email or web address]. It is important to note that some COVID mobile vaccine clinics are held outdoors and may be canceled in rainy orstormy conditions. To learn more about pediatric vaccinations (ages 5-11), we invite you to visit the [facility] webpage. [email or web address]/[email or web address]-Uktipacozhc-Ztxblzultg-Wvwgy-Cra stions.htmlTo learn more about the COVID-19 vaccine, we invite you to visit the [employer] website for a list of frequently asked questions. [email or web address]-[email or web address]-[email or web address]-[email or web address]-Cxxjbtydrk _[email or web address]-Questions.pdf [employer] Patient Portal Access Instructions: Stay connected with your healthcare team and access your personal medical information anytime with the [employer] Patient Portal. If you would like a full copy of your medical records please contact the [facility] Medical Records Department Wednesday through Wednesday between 8a.m. and 4:30p.m. Please follow the directions below to access the portal: 1.Access the email account you provided upon registration to the hospital.2.Look for an invitation email from [facility].3.Open the email and access the invitation link: Accept Invitation to [employer]4.Fill in the required lambert to create your account. Sign into [email or web address] with your username and password that you [...] you will allow to register on the [facility] [employer] Patient Portal for access to your information. You can also access the [employer] Patient Portal on the [employer]. Simply click on Health Records under [employer] and then click on the [employer] logo. [...] Call your local pharmacy or go to [email or web address] to find one close to you.3.Make use of household items: Use cat litter or old coffee grounds to dispose medications if other options arenot available. Mix your drugs with these household products, seal them in an airtight container andthrow it into the garbage. Call [facility]: [phone] to be sure your drugs can be [...] aware that I should contact my doctor. 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 Yoli Jensen LPN * Telephone Encounter - Yoli Jensen LPN - 06/30/2022 11:35 AM EDT Received fax to request records from referrals dated 03/15/22-03/21/2022. Yoli Jensen LPN [facility] Miscellaneous Notes* Telephone Encounter - Nandini Muñoz [...] JORGE Calderon, LYNDON MONTELONGO [facility] Hospital Discharge instructions* Instructions* Bassem Elena MD [...] important. You should call the offices of [facility] on Wednesday and ask for an appointment to be seen as soon as they can work you in; at that time they may decide that a cystoscopy or other testing is necessary to furtherevaluate the cause of your bloody urine. Also make sure you follow-up with the counseling center [facility] for your anxiety; we are not making [...] sent through Care Everywhere. * Anxiety Disorder (Bahraini) * Hematuria (Bahraini) * Cystoscopy: Pre-op (Bahraini) documented in this [facility] Work Phone: [phone]) 539-987006-24-2022 History of Present illness Narrative* Kevin Gill [...] RELIEF) 50 mcg/actuation nasal spray Use 1 Wilkinson in each nostril twicedaily. loratadine (CLARITIN) 10 [...] Plan: Appointment with Kevin. [facility] Miscellaneous Notes* Telephone Encounter - Yoli Jensen LPN - 03/25/2022 2:35 PM EDT Received outside medical records [facility]. Patient has appointment Wednesday. Provided to Kevin Gill PA-C to review and to operations to be scanned. Yoli Jensen LPN documented in [facility] Hospital Discharge instructions* Instructions* Florecita Caruso MD - 03/23/2022 Take your anxiety medications when you get home. Call your doctor tomorrow for reevaluation. * Attachments The following attachments cannot be sent through Care Everywhere. * Anxiety Disorder (Bahraini) * Dysuria ([place]raini) documented in this [facility] Work Phone: 1(509) 300-156305-16-2022 Hospital Discharge instructions* Instructions* Lynn Gutierrez DO - 02/16/2022 You have seasonal allergies, you are given a prescription for Zyrtec and Nasacort. Follow-up with your primary care physician. Return to the emergency department for new or worsening symptoms. * Attachments The following attachments cannot be sent through Care Everywhere. * Allergies: Seasonal (B[place]raini) documented in [facility] Work Phone: 1(739) 904-957903-20-2022 Note. MICRO - Microbiology PROCEDURE: Urine Culture [...] Locations *1: This test was performed at: [facility], [address] [place] [address], [id number]- , [facility] ([place])12-19-2021 Hospital Discharge instructions Patient Education 12/19/2021 10:17:36 [...] problems caused by scarring or long-term infections. [id number] [employer]. [address] [place] [address], [place] [address]. All rights reserved. This information is not intended as a substitute for professional medical care. Always follow yourhealthcare professional's instructions. Follow Up Care 12/19/2021 09:24:18 With:your urologist Address: When: Unknown [facility] 11-13-2021 Hospital Discharge instructions* Instructions* Florecita Lombardi MD - 08/16/2021 Return if high fever develops or increased shortness of breath * Attachments The following attachments cannot be sent through Care Everywhere. * Bronchitis (Bahraini) [facility] Work Phone: Discharge summary Author Dr. Richards [facility] January 13, 2023 6:43am Note Date/Time January 13, 2023 6:4 3am [facility] Medical Records Department [address] [place] [address] Emergency Department Summary 01/13/23 MR#: [id number] Acct: [id number] Name: GILBERTO JOHNSON Rep #:[id number] : [...] he has a primary care physician in [place] but cannot get there because he does [...] this to him again but I did benefits counselor him that I do not find [...] your Primary Care Provider. Call [facility] ([phone]) or report to the closest Emergency Room. Call 911 if necessary. 01/13/23 0643 <Electronically signed by Wally Richards DO> Cosigner Signature (if applicable): CC: No Primary Care Physician ~ Signed [facility] Work Phone: Discharge summary Author Chidi Hermosillo [facility] Note Date/Time April 05, 2025 2:50a m [facility] Medical Records Department [address] [place] [address] Emergency Department Summary 04/05/25 MR#: [id number] Acct: [id number] Name: GILBERTO JOHNSON Rep #:[id number] : 1985 39 From: Chidi teixeira DO PCP: Care Physician,No Primary Status :REG ER Location: ED HPI History of Present Illness Chief Complaint: Laceration Narrative Narrative: Chief complaint and HPI: Close head injury. 39-year-old male presents for evaluation of closed head injury. Patient states he accidentally walked into a metal pole prior to arrival. Hit his frontal forehead. Denies LOC. Not on blood thinners. Patient obtained an abrasion to the anterior forehead. Not up-to-date on tetanus. Patient states he has also been having an extra piece ofskin in the roof of his mouth that has been bothering him and wanted me to evaluate it. He denies any fever, chills, shortness of breath, chest pain, abdominal pain, nausea, vomiting. Denies any injury elsewhere. Review of systems: See HPI Medications: As listed on the chart Allergies: As listed on the chart PFSH: Per chart Gen: A&O x3, NAD Head: Normocephalic, small abrasion to the anterior forehead-no laceration that needs repaired Eyes: No sclera icterus, conjunctiva clear, PERRL, EOMI ENT: TMs clear BL, moist mucous membranes, face atraumatic without swelling/lacerations/blood in the mouth or the nares, No nasal septal hematoma, no facial tenderness, a dentulous, patient has a small piece of his gum that is hanging down from his top gum this is likely what he is feeling-no gingivitis orinfection-nontender Neck: Trachea midline, No JVD, Nontender full range of motion, CV: RRR, no murmurs, no chest wall TTP Resp: Lungs CTA BL, no w/r/c GI: Abd soft, non-distended, non-tender, no r/r/g Musc: Full ROM, no deformity, no spinal TTP, no rafita step-offs Skin: Warm, dry, intact Neuro: Alert, oriented, grossly intact, sensation intact, GCS 15 Psych: Cooperative, appropriate mood and affect [facility] Medical History Acute sinusitis, unspecified Pancreatitis Chronic GERD Tobacco use Anxiety Home Medications ?Medication ?Instructions ?Recorded ?Last Taken ?Type buspirone 5 mg tablet 10 mg PO TID PRN Anxiety 04/1904/05/25 History famotidine 40 mg tablet (Pepcid) 40 mg PO QHS 06/10/17 Unknown History quetiapine 25 mg tablet 25 mg PO TID 06/28/21 History ondansetron 4 mg disintegrating 4 mg PO Q8H PRN PRN Na usea #10 tabs 12/25/23 Unknown Rx tablet famotidine 20 mg tablet 20 mg PO BID 30 days #60 tab s 06/16/24 04/05/25 Rx sulfamethoxazole 800 1 tab PO BID #6 TABLETS 0 10/27 Unknown Rx mg-trimethoprim 160 mg tablet doxycycline monohydrate 100 mg 100 mg PO BID #14 CAPSU LES 09/19/24 Unknown Rx capsule guaifenesin 1,200 mg tablet, 1,200 mg PO BID PRN conge stion 7 10/13/24 Unknown Rx extended release 12 hr (Mucinex) days #14 tabs azithromycin 250 mg tablet See Rx Instructions PO .COM PLEX #6 12/06/24 Unknown Rx (Zithromax Z-Phillip) tabs ondansetron 4 mg disintegrating 4 mg PO Q6H PRN nausea and 03/19/25 Unknown Rx tablet vomiting #7 tabs Allergy/AdvReac Type Severity Reaction Status Date / Time Penicillins Allergy Unknown Verified 04/05/25 01:18 sumatriptan (From Imitrex) Allergy Unknown Verified 04/05/25 01:18 sumatriptan succinate (From Allergy Unknown Verified 04/05/25 01:18 Imitrex) amoxicillin (Amoxicillin) AdvReac Nausea/Vom/ Verified 04/05/25 01:18 Diarrhea Surgical History History of herniorrhaphy No significant past surgical history Social History household members: family Smoking Status: Current every day smoker tobacco type: cigarettes and e- cigarettes Smokeless tobacco user: chewing tobacco how long ago did patient quit smoking: Former cigarette tobacco use, now chew tobacco 2-3 wads daily. alcohol intake: never details: Patient states he currently is not drinking any alcoholic beverages substance use type: does not use EXAM Physical Exam Const Vital Signs: 04/05/25 01:14 Temperature 99.2 F H Temperature Source Oral Pulse Rate 98 Respiratory Rate 16 Blood Pressure 136/88 H Blood Pressure Mean 104 Pulse Ox 98 Oxygen Delivery Method Room Air MDM MDM MDM Narrative Medical decision making narrative: 39-year-old male presents for evaluation of closed head injury. Patient states he accidentally walked into a metal pole prior to arrival. Hit his frontal forehead. Denies LOC. Not on blood thinners. Patient obtained an abrasion to the anterior forehead. Not up-to-date on tetanus. Differential diagnosis includes but is not limited to closed head injury, abrasion, suspect less likelyintracranial bleed, skull fracture, concussion. Abrasion cleaned. Tetanus updated. CT of the head ordered. CT of the head without any acute traumatic injury. On reevaluation, patient is asymptomatic. Patient is stable to discharge home. Given education on concussion. Follow-up with PCP. He confirmed understanding of plan. Impression: 1. Closed head injury 2. Forehead abrasion Radiography Diagnostic Testing: Clinical Impression(s) from Imaging Studies Brain CT 04/05/25 02:03 IMPRESSION: No acute intracranial findings Reading Location: [place] [address] Discharge Plan Triage Chief Complaint: Laceration ED Provider: Chidi Hermosillo Dx/Rx/DC Orders Clinical Impression: Closed head injury Instructions: After a Concussion, Concussion Dc, ED Head Injury (Adult) Prescriptions: No Action buspirone 5 MG tablet 10 mg PO TID PRN (Reason: Anxiety) famotidine [Pepcid] 40 MG tablet 40 mg PO QHS quetiapine 25 mg tablet 25 mg PO TID doxycycline monohydrate 100 mg capsule 100 mg PO BID Qty: 14 0RF azithromycin [Zithromax Z-Phillip] 250 mg tablet See Rx Instructions .ROUTE .COMPLEX Qty: 6 0RF Rx Instructions: For 250 mg dose pack: take 500 mg today (day 1), then 250 mg for 4 days (days2- 5) ondansetron [ondansetron] 4 mg tablet,disintegrating 4 mg PO Q8H PRN PRN (Reason: Nausea) Qty: 10 0RF famotidine 20 mg tablet 20 mg PO BID 30 Days Qty: 60 1RF sulfamethoxazole-trimethoprim 800-160 mg tablet 1 tab PO BID Qty: 6 0RF guaifenesin [Mucinex] 1,200 mg tablet extended release 12hr 1,200 mg PO BID PRN (Reason: congestion) 7 Days Qty: 14 0RF ondansetron 4 mg tablet,disintegrating 4 mg PO Q6H PRN (Reason: nausea and vomiting) Qty: 7 0RF Primary Care Provider: Care Physician,No Primary Referrals: Charbel Vela MD [Med Staff - Active Staff] - 3-5 Days Care Physician,No Primary [Primary Care Provider] - Activity Restrictions/Additional Instructions: Monitor for signs of infection of your abrasion. Follow-up with your primary care physician if you do not have 1 follow-up with the one provided above. Monitor for signs of concussion which we talked about. I also printed out some information on concussions if you develop one. Print Language: Bahraini Disposition Disposition: Home, Self Care What to do if you have Problems For any increased pain, shortness of breath, bleeding, nausea or vomiting, chestpain, or any unexpected problems, contact your Primary Care Provider. Call [facility] ([phone]) or report to the closest Emergency Room. Call 911 if necessary. 04/05/25 0250 <Electronically signed by Chidi Hermosillo DO> Cosigner Signature (if applicable): CC: No Primary Care Physician ~ Signed [facility] Work Phone: Evaluation + Plan note Future Appointments Appointment Date:01/30/2022 01:20:00 PM Scheduled Provider:JEANNE JULIEN APRN-AIMEE Location:UROLOGY Appointment Type:URO NURSES' AIDE Diagnostic Tests Pending * Urine Culture 12/19/21 [facility] Evaluation note* Diagnosis Bronchitis- Primary [...] Diagnosis Dysuria- Primary [facility] Diagnosis Abnormal laboratory test- Primary Other abnormal clinical finding Anxiety state Anxiety state, unspecified documented in this encounter [facility] Work Phone: Evaluation note* Diagnosis Acute cystitis with hematuria- Primary Acute cystitis documented in this encounter [facility] Work Phone: Evaluation noteNo assessment information available [facility] Work Phone: Evaluation note* Diagnosis Mouth sore- Primary Other and unspecified diseases of the oral soft tissues Bacterial sinusitis Unspecified sinusitis (chronic) [facility] Diagnosis Post-nasal drainage- Primary Unspecified sinusitis (chronic) [facility] [place] [facility]* Diagnosis Acute non-recurrent sinusitis, unspecified location- Primary [facility] Narrative No data available for this section [facility] Hospital Discharge instructions* Attachments The following attachments cannot be sent through Care Everywhere. * Headache (Bahraini) [facility] Phone: Hospital Discharge instructions* Attachments The following attachments cannot be sent through Care Everywhere. * Anxiety Disorder (Bahraini) documented in this [facility] Work Phone: Hospital Discharge instructions* Attachments The following attachments cannot be sent through Care Everywhere. * Dysuria (Bahraini) documented in this [facility] Work Phone: Hospital Discharge instructions No data available for this section [facility] Hospital Discharge instructions* Attachments The following attachments cannot be sent through Care Everywhere. * UTI (Urinary Tract Infection): Male (Bahraini) documented in this [facility] Work Phone: Hospital Discharge instructions Additional [...] get a call then that means is negative.[facility] Work Phone: Hospital Discharge instructions Additional Instructions Follow-up with your primary care physician within next 3 to 5 days.[facility] Work Phone: Hospital Discharge instructions Additional Instructions Zofran as needed for nausea. Plenty of fluids and rest. Follow-up with a local primary care physician if not improving.[facility] Work Phone: Hospital Discharge instructionsAdditional Instructions Monitor for signs of infection of your abrasion. Follow-up with your primary care physician if you do not have 1 follow-up with the one provided above. Monitor for signs of concussion which we talked about. I also printed out some information on concussions if you develop one.[facility] Work Phone: Progress note No data available for this section [facility] Reason for referral (narrative)No reason for referral information [facility] Work Phone: Summary Purpose Family History No Family History Records FoundNo Family History Records FoundNo Family History Records FoundNo Family History Records FoundNo Family History Records FoundNo Family History Records Found Advance Directives No Advanced Directives Records Found Advance Directive Response Recorded Date/ Time Living Will No June 17, 2022 8:33pm Power of Roofing Technician No June 8:33pm Advance Directive Response Recorded Date/ Time Living Will No July 29 11:33pm Power of Roofing Technician No July 29, 2022 11:33pm Advance Directive Response Recorded Date/ Time Living Will No August 20 022 12:05pm Power of Roofing Technician No August 20, 2022 12:05pm Advance Directive Response Recorded Date/ Time Living Will No September 03 3:25pm Power of Roofing Technician No September 03, 2022 3:25pm Advance Directive Response Recorded Date/ Time Living Will No September 09 3:07pm Power of Roofing Technician No September 09, 2022 3:07pm Advance Directive Response Recorded Date/ Time Living Will No December 01 023 8:51pm Power of Roofing Technician No December 01, 2022 8:51pm Advance Directive Response Recorded Date/ Time Living Will No January 02, 2023 6:38am Power of Roofing Technician No January 02 6:38am Advance Directive Response Recorded Date/ Time Living Will No January 02, 2023 9:36pm Power of Roofing Technician No January 02 9:36pm Advance Directive Response Recorded Date/ Time Living Will No January 13, 2023 6:20am Power of Roofing Technician No January 13 6:20am Advance Directive Response Recorded Date/ Time Living Will No February 03, 2023 6: 17am Power of Roofing Technician No February 03, 2023 6:17am Advance Directive Response Recorded Date/ Time Living Will No February 28, 2023 8 :00pm Power of Roofing Technician No February 28, 2023 8:00pm Advance Directive Response Recorded Date/ Time Living Will No June 05 023 6:46pm Power of Roofing Technician No June 05, 2023 6:46pm Advance Directive Response Recorded Date/ Time Living Will No December 25, 2023 3:48am Power of Roofing Technician No December 24 3:48am Advance Directive Response Recorded Date/ Time Living Will No December 06, 2024 2:33pm Do you have a Healthcare Power of Roofing Technician? No December 06, 2024 2:33pm Do you have a Healthcare Power of Roofing Technician? No March 19, 2025 12:45am Advance Directive Response Recorded Date/ Time Living Will No December 06, 2024 2:33pm Do you have a Healthcare Power of Roofing Technician? No December 06, 2024 2:33pm Do you have a Healthcare Power of Roofing Technician? No March 19, 2025 12:45am Do you have a Healthcare Power of Roofing Technician? No April 05, 2025 1:17am Reason for Referral Specialty Diagnoses / Procedures Referred By Rosa M cano Referred To Contact Family Medicine Diagnoses Acute nonintractable headache, unspecified headache type Tereso Kuo MD [address] [place] [address] [place] [address] Referral ID Status Reason Start Date Expiration Date V isits Requested Visits Authorized [id number] Open Specialty Services Required 10/04/2021 10/04/2022 1 1 Scheduling Instructions [address] Dawkins [address] [place] [address] Chief Complaint and Reason for Visit Chief [...] 3pm n/v March 19, 2025 12:4 1am Chief Complaint Admit Date SINUS PRESSURE December 06, 2024 12:3 3pm n/v March 19, 2025 12:4 1am head lac April 05, 2025 1:13a m Additional Source Comments (unrecognized sect ion and content) No Status Records FoundNo Status Records FoundNo Status Records FoundNo Status Records FoundNo Status Records FoundNo Status Records Found INFORMATION SOURCE (unrecogn ized section and content) DATE CREATED AUTHOR 03/30/2018 [employer] DATE CREATED AUTHOR AUTHOR'S ORGANIZ ATION 10/27/2020 [facility] DATE CREATED AUTHOR AUTHOR'S ORGANIZ ATION 05/05/2022 [facility] [employer] DATE CREATED AUTHOR AUTHOR'S ORGANIZ ATION 10/16/2022 [employer] ([place]) DATE CREATED AUTHOR AUTHOR'S ORGANIZ ATION 04/14/[address] [facility] DATE CREATED AUTHOR AUTHOR'S ORGANIZ ATION 04/29/2025 [facility] Reason [...] Comments Results Reason Comments Hematuria Reason Comments Tub Mender - Other Reason Comments Mouth Sores L cheek x2 days Reason Comments Cough Cough and congestion x 2 weeks Reason Comments Sore Throat X1.5 weeks PRN Active and Recently Administ ered Medications (unrecognized section and content) Medication Order 08/14/2021 08/15/2021 08/16/2021 albuterol sulfate HFA 108 (90 Base) MCG/ACT inhaler 2 puff 2 puff, Inhalation, EVERY 4 HOURS PRN, Wheezing, Starting on 08/16/21 at 1805 1827 (Given - Provid er: Ara Cedillo, RN) Scheduled Medication Order 10/02/2021 10/03/2021 10/04/2021 [...] ONCE, 1 dose, On Wed03/17/22 at 2043 204 (Due) Scheduled Medication Order 03/26/2022 03/27/2022 03/28/2022 [...] or prosecute any alcohol or drug abuse patient.[facility] the event this information is protected by the Federal Confidentiality of Alcohol and Drug Abuse Patient Records regulations: The Federal rules restrict any use of the information to criminally investigate or prosecute any alcohol or drug abuse patient.[facility] the event this information is protected by the Federal Confidentiality of Alcohol and Drug Abuse Patient Records regulations: The Federal rules restrict any use of the information to criminally investigate or prosecute any alcohol or drug abuse patient.[facility] the event this information is protected by the Federal Confidentiality of Alcohol and Drug Abuse Patient Records regulations: The Federal rules restrict any use of the information to criminally investigate or prosecute any alcohol or drug abuse patient.[facility] the event this information is protected by the Federal Confidentiality of Alcohol and Drug Abuse Patient Records regulations: The Federal rules restrict any use of the information to criminally investigate or prosecute any alcohol or drug abuse patient.[facility] the event this information is protected by the Federal Confidentiality of Alcohol and Drug Abuse Patient Records regulations: The Federal rules restrict any use of the information to criminally investigate or prosecute any alcohol or drug abuse patient.[facility] the event this information is protected by the Federal Confidentiality of Alcohol and Drug Abuse Patient Records regulations: The Federal rules restrict any use of the information to criminally investigate or prosecute any alcohol or drug abuse patient.[facility] Care Teams (unrecognized sec tion and content) Analytical Chemist Relationship Specialty Start Date End Date Dalton Art, [address] [facility] [address] [place], [place] [id number] PCP - General Family Practice 10/05/21 Analytical Chemist Relationship Specialty Start Date End Date Dalton Art, [address] [facility] [place], [place] [id number] PCP - General Family Practice 10/05/21 Analytical Chemist Relationship Specialty Start Date End Date Dalton Art, [address] [facility] [address] [place], [place] [id number] PCP - General Family Practice 10/05/21 Analytical Chemist Relationship Specialty Start Date End Date Dalton Art, [address] [facility] [address] [place], [place] [id number] PCP - General Family Medicine 10/05/21 Team [...] Status: Inactive Member Role Status Dates JESSICA HERRING Primary Care Provider Active Dr. Marco Antonio [...] Team Status: Inactive Member Role Status Dates NEAVEH, JESSICA Primary Care Provider Active Dr. Matt [...] Dr. Pam Bear MD Emergency Provider Active Analytical Chemist Relationship Specialty Start Date End Date Dalton Art DO [address] [facility] [address] [place], [place] [id number] PCP - General Family Medicine 10/05/21 Analytical Chemist Relationship Specialty Start Date End Date Dalton Art DO [address] [facility] [place] [address] PCP - General Family Medicine 10/05/21 Vania Szymanski, [employer] T[employer] [address] [place] [address] Motorcycle Builder Family Medicine 09/10/24 Royer Green, [employer] BACK T[employer]ER [address] [place] [address] Motorcycle Builder Family Medicine 11/14/24 Team Status: Active Member Role Status Dates No Primary Care Physician Primary Care Provider Active Team Status: Inactive Member Role Status Dates No Primary Care Physician Primary Care Provider Active Start: December 06, 2024 End: December 06, 2024 Dr. Marco Antonio Cintron MD Attending Provider Active S tart: December 06, 2024 End: December 06, 2024 Dr. Marco Atnonio Cintron MD Emergency Provider Active S tart: December 06, 2024 End: December 06, 2024 Team Status: Inactive Member Role Status Dates No Primary Care Physician Primary Care Provider Active Start: March 19, 2025 End: March 19, 2025 Dr. Marco Antonio Cintron MD Emergency Provider Active S tart: March 19, 2025 End: March 19, 2025 Team Status: Active Member Role/Relationship Status Dates No Primary Care Physician Primary Care Provider Active Team Status: Inactive Member Role/Relationship Status Dates No Primary Care Physician Primary Care Provider Active Start: December 06, 2024 End: December 06, 2024 Dr. Marco Antonio Cintron MD Attending Provider Active S tart: December 06, 2024 End: December 06, 2024 Dr. Marco Antonio Cintron MD Emergency Provider Active S tart: December 06, 2024 End: December 06, 2024 Team Status: Inactive Member Role/Relationship Status Dates No Primary Care Physician Primary Care Provider Active Start: March 19, 2025 End: March 19, 2025 Dr. Marco Antonio Cintron MD Attending Provider Active S tart: March 19, 2025 End: March 19, 2025 Dr. Marco Antonio Cintron MD Emergency Provider Active S tart: March 19, 2025 End: March 19, 2025 Team Status: Inactive Member Role/Relationship Status Dates No Primary Care Physician Primary Care Provider Active Start: April 05, 2025 End: April 05, 2025 Dr. Chidi Hermosillo DO Emergency Provider Activ e Start: April 05, 2025 End: April 05, 2025 Analytical Chemist Relationship Specialty Start Date End Date Dalton Art DO [address] [facility] [place] [address] PCP - General Family Medicine 10/05/21 Vania Szymanski, [employer] T[employer]ER [address] [place] [place], [place] [id number] Motorcycle Builder [facility] 09/10/24 Royer Green, [employer] BACK T[employer]ER [address] [place] [address] [facility] 11/14/24 Care Team (unrecognized sect ion and content) Personnel Name: NEVAEH FRAGA MD Address: Address: [address] [place] [address] Care Team Personnel Name: NEVAEH FRAGA MD Member Role: Primary Care Physician Address: Address: [address] [place] [address] Name: Lisa Szymanski RN Position: AO RN Member Role: RN Name: MCKAYLA CARSON DO Position: ED Physician Member Role: Attending Physician Address: Address: [facility] [address] [place] [address] Care Team Related Persons Name: URCONIS, TREVIN [...] BE BASED ON THE PRIMARY CLINICAL RECORDS. [facility] [employer] [facility]. provides no warranty or guarantee of the accuracy or completeness of information in this document.
--- NOTE | 2025-06-15 23:35 | EX.ED.VISEXT ---
HPI History of Present Illness Chief Complaint: Bite Narrative Narrative: Chief complaint and HPI: 39-year-old male with past medical history of anxiety presents for evaluation of dog tooth scratch to the nose. Patient states that he was outside with a friend's dog he was licking his face when the dog's tooth accidentally scratched his nose. 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 He was worried about scarring which is why presents to the emergency department. He is up-to-date on tetanus. Dog is up-to-date on vaccines. Denies injury elsewhere. Review of systems: See HPI Medications: As listed on the chart Allergies: As listed on the chart PFSH: Per chart Vital signs: As listed on the chart. Reviewed. Physical exam: Gen: A&O x3, NAD Head: Normocephalic, atraumatic Eyes: No sclera icterus, conjunctiva clear, PERRL, EOMI ENT: Moist mucous membranes, face atraumatic other than a 1 cm superficial scratch mary to the right lateral nose, face nontender to palpation Neck: Trachea midline, No JVD, full range of motion, nontender CV: RRR, no murmurs, Resp: Lungs CTA BL, no w/r/c Musc: Full ROM, no deformity Skin: Warm, dry Neuro: Alert, oriented, grossly intact, sensation intact Psych: Cooperative, appropriate mood and affect [facility] Medical History Acute sinusitis, unspecified Pancreatitis Chronic GERD Tobacco use Anxiety Home Medications ?Medication ?Instructions ?Recorded ?Last Taken ?Type buspirone 5 mg tablet 10 mg PO TID PRN Anxiety 06/10/17 04/05/25 History famotidine 40 mg tablet (Pepcid) 40 mg PO QHS 06/10/17 Unknown History quetiapine 25 mg tablet 25 mg PO TID 06/28/21 04/05/25 History ondansetron 4 mg disintegrating 4 mg PO Q8H PRN PRN Nausea #10 tabs 12/25/23 Unknown Rx tablet famotidine 20 mg tablet 20 mg PO BID 30 days #60 tabs 06/16/24 04/05/25 Rx sulfamethoxazole 800 1 tab PO BID #6 TABLETS 07/04/24 Unknown Rx mg-trimethoprim 160 mg tablet doxycycline monohydrate 100 mg 100 mg PO BID #14 CAPSULES 09/19/24 Unknown Rx capsule guaifenesin 1,200 mg tablet, 1,200 mg PO BID PRN congestion 7 10/13/24 Unknown Rx extended release 12 hr (Mucinex) days #14 tabs azithromycin 250 mg tablet See Rx Instructions PO .COMPLEX #6 12/06/24 Unknown Rx (Zithromax Z-Phillip) tabs ondansetron 4 mg disintegrating 4 mg PO Q6H PRN nausea and 03/19/25 Unknown Rx tablet vomiting #7 tabs Allergy/AdvReac Type Severity Reaction Status Date / Time Penicillins Allergy Unknown Verified 06/15/25 21:36 sumatriptan (From Imitrex) Allergy Unknown Verified 06/15/25 21:36 sumatriptan succinate (From Allergy Unknown Verified 06/15/25 21:36 Imitrex) amoxicillin (Amoxicillin) AdvReac Nausea/Vom/ Verified 06/15/25 21:36 Diarrhea Surgical History History of herniorrhaphy No significant past surgical history Social History household members: family Smoking Status: Current every day smoker tobacco type: cigarettes and e-cigarettes Smokeless tobacco user: chewing tobacco how long ago did patient quit smoking: Former cigarette tobacco use, now chew tobacco 2-3 wads daily. alcohol intake: never details: Patient states he currently is not drinking any alcoholic beverages substance use type: does not use EXAM Physical Exam Const Vital Signs: 06/15/25 21:35 Temperature 98.7 F Temperature Source Oral Pulse Rate 100 Respiratory Rate 18 Blood Pressure 139/109 H Blood Pressure Mean 119 Pulse Ox 99 Oxygen Delivery Method Room Air MDM MDM MDM Narrative Medical decision making narrative: 39-year-old male with past medical history of anxiety presents for evaluation of dog tooth scratch to the nose. Patient states that he was outside with a friend's dog he was licking his face when the dog's tooth accidentally scratched his nose. 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 He is up-to-date on tetanus. Dog is up-to-date on vaccines. Physical exam is unremarkable except for a 1 cm superficial scratch mary to the right lateral nose. Nothing that is gaping or need to repaired. Wound was cleaned. Bacitracin applied. Will place patient on a short course of antibiotics to prevent infection. Patient has penicillin listed as an allergy, he states he gets some nausea and vomiting. He was given the option of Augmentin with Zofran versus doxycycline and Flagyl. He elected to try the Augmentin. First dose given here. Patient stable to discharge home. Follow-up with PCP. He confirmed understand the plan. Impression: 1. Dog tooth scratch to the lateral nose Discharge Plan Triage Chief Complaint: Bite ED Provider: Chidi Hermosillo Dx/Rx/DC Orders Prescriptions: No Action buspirone 5 MG tablet 10 mg PO TID PRN (Reason: Anxiety) famotidine [Pepcid] 40 MG tablet 40 mg PO QHS quetiapine 25 mg tablet 25 mg PO TID doxycycline monohydrate 100 mg capsule 100 mg PO BID Qty: 14 0RF azithromycin [Zithromax Z-Phillip] 250 mg tablet See Rx Instructions .ROUTE .COMPLEX Qty: 6 0RF Rx Instructions: For 250 mg dose pack: take 500 mg today (day 1), then 250 mg for 4 days (days 2-5) ondansetron [ondansetron] 4 mg tablet,disintegrating 4 mg PO Q8H PRN PRN (Reason: Nausea) Qty: 10 0RF famotidine 20 mg tablet 20 mg PO BID 30 Days Qty: 60 1RF sulfamethoxazole-trimethoprim 800-160 mg tablet 1 tab PO BID Qty: 6 0RF guaifenesin [Mucinex] 1,200 mg tablet extended release 12hr 1,200 mg PO BID PRN (Reason: congestion) 7 Days Qty: 14 0RF ondansetron 4 mg tablet,disintegrating 4 mg PO Q6H PRN (Reason: nausea and vomiting) Qty: 7 0RF Primary Care Provider: Care Physician,No Primary Referrals: Care Physician,No Primary [Primary Care Provider] - Print Language: Sami
[2025-06-16 00:05] VITALS: BP 138/98; PULSE 72; RESP 18; TEMP 36.7; O2SAT 98
== END 2025-06-16 00:06 | disposition home or self-care (01) ==
PROVIDERS: Emergency Provider Surgery; Visit Provider Surgery
DX: S00.31XA Abrasion of nose, initial encounter (principal); W54.1XXA Struck by dog, initial encounter; F41.9 Anxiety disorder, unspecified; K21.9 Gastro-esophageal reflux disease without esophagitis; F17.290 Nicotine dependence, other tobacco product, uncomplicated; F17.210 Nicotine dependence, cigarettes, uncomplicated; Z88.0 Allergy status to penicillin; Z79.899 Other long term (current) drug therapy
CPT/HCPCS: 99283

== ENCOUNTER 2025-08-22 23:41 | Emergency (ER) | payer MEDICARE, MEDICAID, SELFPAY ==
[2025-08-22 23:41] VITALS: BP 136/87; PULSE 87; RESP 18; TEMP 36.8; O2SAT 100; BMI 25.2
--- NOTE | 2025-08-22 23:59 | RAD_ITS ---
PROCEDURE: CHEST PA AND LATERAL 08/23/2025 REASON FOR EXAM: COUGH TECHNIQUE: Procedure Code: RADCXR Modality: DX Procedure: CHEST PA AND LATERAL COMPARISON: 09/19/2024. FINDINGS: The lungs are expanded. There is no demonstrated parenchymal abnormality. There is no demonstrated pleural abnormality. Normal heart and pericardium. Normal mediastinum and chen. Normal visualized pulmonary arteries. Normal visualized aortic arch and descending thoracic aorta. Normal visualized thoracic spine. Normal visualized ribs, clavicles, and shoulders. There is no demonstrated abnormality of the visualized soft tissue structures of the upper abdomen. RAD/Chest PA and Lateral IMPRESSION: No evidence for acute abnormality. [facility]
--- OUTSIDE RECORDS SUMMARY | 2025-08-23 00:05 | XMS RPT_ITS | CCD ---
Author Organization [facility] CliniSywi Care Team Providers Care Fruit Packer Face And Fill Name Role Phone MILE SANCHEZ Unavailable Unavailable [...] Dalton Art DO Primary Care Provider Stephon CONCRETE FLOAT MAKER.DIRECTOR OF SEARCH ENGINE OPTIMIZATION, Vania Unavailable Stone CONCRETE FLOAT MAKER.DIRECTOR OF SEARCH ENGINE OPTIMIZATION, Royer Unavailable Care Physician, No Primary Primary Care Provider Unavailable Abdulaziz LOBO, Dr. Bernard Attending Provider [phone] Dr. Marco Antonio Cintron MD Emergency Provider Jaimee KILGORE, Dr. Murillo Emergency Provider DALTON ART Primary Care Unavailable EMIR SIMONS Attending Unavailable DALTON ART Primary Care Unavailable Care Physician, No Primary Primary Care Provider Unavailable Abdulaziz LOBO, Dr. Bernard Attending Provider Dr. Marco Antonio Cintron MD Emergency Provider Jaimee KILGORE, Dr. Murillo Attending Provider Nolan Brady Attending Unavailable Care Physician, No Primary Primary Care Unava ilable Care Physician, No Primary Primary Care Unava ilable Provider, Ed Physician Attending Unavailab Chidi Haider Attending Unavailabl e Care Physician, No Primary Primary Care Unava ilable Marco Antonio Cintron Attending Unavailable Care Physician, No Primary Primary Care Unava ilable Marco Antonio Cintron Attending Unavailable Care Physician, No Primary Primary Care Unava ilable Antwan Esparza Attending Unavailable Care Physician, No Primary Primary Care Unava ilable Elena, Michel Attending Unavailable Care Physician, No Primary Primary Care Unava ilable Reodicgerald Alan Attending Unavailable Care Physician, No Primary Primary Care Unava ilable Chidi Hermosillo Attending Unavailabl e Care Physician, No Primary Primary Care Unava ilable Allergies Allergy Classification Reported Allergen(s) Allergy Type Date of Onset Reaction(s) Facility (20 sources) Amoxicillin; Translations: [AMOXICILLIN] Drug Allergy 10-04-19 17 Nausea/Vom[facility] ([facility] sources) Penicillins; Translations: [PENICILLINS] Propensity to adverse reactions to drug (disorder) 07-20-20 14 Vomiting [facility] Repository (20 sources) SUMAtriptan; Translations: [SUMATRIPTAN] Drug Allergy 05-01-20 15 Other: See Comments [facility] Work Phone: (3 sources) Penicillin; Translations: [penicillins] Drug Allergy Rash [facility] (8 sources) Amoxicillin; Translations: [AMOXICILLIN (BULK)] Drug Allergy 11-23-19 15 Vomiting [facility] (17 sources) SUMAtriptan; Translations: [sumatriptan succinate] Drug Allergy 06-24-[address] [facility] (4 sources) Sulfamethoxazole / Trimethoprim; Translations: [SULFAMETHOXAZOLE-T RIMETHOPRIM] Drug Allergy 11-19-19 24 Swelling [facility] (1 source) SUMAtriptan Drug Allergy 06-15-[address] [facility] Repository Medications Current Medications Medication Drug [...] for headache Start Date: 06/08/17 Status: Ordered [id number] 200 actuat albuterol 0.09 mg/actuat metered dose [...] 0 Refill(s) Start Date: 12/12/16 Status: Ordered amoxicillin 875 mg / clavulanate 125 mg oral tablet (1 source) Penicillin-class Antibacterial Start: 06-15-2025 Amoxicillin-Pot Clavulanate 875-125 mg tablet Active 1 {tbl} PO TWICE A DAY 10 5 0 June 15, 2025 12:00am azithromycin 250 mg oral tablet (8 sources) Macrolide Antimicrobial Start: 12-06-2024 Azithromycin (Zithromax Z-Phillip) 250 mg tablet Active 0 PO .COMPLEX 6 0 December 06, 2024 1:00am For 250 mg dose pack: take 500 mg today (day 1), then 250 mg for 4 days (days 2-5) Start: 08-04-2023 End: 12-25-2023 Azithromycin 250 mg tablet D iscontinued 250 mg PO daily 12 0 August 04, 2023 12:00am December 25, 2023 [...] m outh every 8 hours as needed. busPIRone hydrochloride 15 mg oral tablet (20 sources) Start: 03-23-2022 busPIRone (BUSPAR) 15 mg tablet 03/23/2022 Active Start: 06-27-2017 busPIRone 10 m g oral tablet Dose : 10 mg = 1 tab(s), Oral, TID, # 270 tab(s), 0 Refill(s) Start Date: 06/27/17 Status: Ordered Start: 06-10-2017 take 2 tablets by mo [facility] three times daily as needed for anxiety [...] Comment on above: [facility] diphenhydrAMINE-maalox- lidocaine (BMX 1:1:1) 1:1:1 liqd (3 sources) Start: 11-19-2023 diphenhydrAMINE-maalox -lidocaine (BMX 1:1:1) 1:1:1 liqd Mix in equal amounts - 1 T every 2hrs as needed for mouth pain, Swish/swallow or expectorate. (8oz) 240 mL 11/19/2023 Active Start: 11-19-2023 diphenhydrAMIN T-kltump-psfhiokva (BMX 1:1:1) 1:1:1 liqd Mix in equal amounts - 1 T every 2hrs as needed for mouth pain, Swish/swallow or expectorate. (8oz) 240 mL 0 11/19/2023 Active Comment on above: Mix in equal amounts - 1 T every 2hrs as needed for mouth pain, Swish/swallow or expectorate. (8oz) doxycycline hyclate 100 mg oral tablet (14 sources) Tetracycline-class Drug Start: End: take 1 tablet by mouth twice daily doxycycline (VIBRA-TABS) 100 mg tablet Indications: Acute non-recurrent sinusitis, unspecified location Take 1 tablet by mouth two times a day for 10 days. 20 tablet 04/27/2025 05/07/2025 Active Start: 09-19-2024 take 1 capsule by mo [facility] twice daily Doxycycline Monohydrate 100 mg capsule [...] 100 mg PO TWICE A DAY 20 0 January 03, 2023 12:00am August 04, 2023 3:41pm Comment on above: Take 1 tablet by diamond [facility] two times a day for 5 days. famotidine 20 mg oral tablet (20 sources) Histamine-2 Receptor Antagonist Start: 06-22-2021 take 1 tablet by mouth twice daily Famotidine 20 mg tablet Active 20 mg PO TWICE A DAY 60 30 1 June 16, 2024 12:00am Start: 02-04-2016 End: 06-10-2017 take 1 tablet by mouth at bedtime Famotidine (Pepcid) 40 MG tablet Active 40 mg PO AT BEDTIME June 10, 2017 5:33pm Comment on above: Take 20 mg by mouth at bedtime as needed. fluticasone propionate 0.05 mg/actuat metered dose nasal spray (9 sources) Corticosteroid Start: take 1 spray(s) nasal route twice daily fluticasone (FLONASE ALLERGY RELIEF) 50 mcg/actuation nasal spray Indications: Viral URI with cough Use 1 Leona in each nostril twice daily. 1 Each 10/05/2021 Active Start: 06-27-2017 take 1 dose nasal ro [place] twice daily fluticasone 50 mcg/inh NASAL spray Dose = 1 spray(s), Nostril, each, BID, 0 Refill(s) Start Date: 06/27/17 Status: Ordered Comment on above: Use 1 Leona in each nostril twice daily. fluticasone 50 mcg/inh NASAL spray (1 source) Start: 06-27-20 take 1 dose nasal route twice daily fluticasone 50 mcg/inh NASAL spray Dose = 1 spray(s), Nostril, each, BID, 0 Refill(s) Start Date: 06/27/17 Status: Ordered 12 hr guaiFENesin 1200 mg extended release oral tablet (3 sources) Start: 10-13-19 take 1 tablet by mouth twice daily [...] HOURS NEEDED as needed for Nausea 10 0 February 28, 2023 12:00am June 05, 2023 [...] th every 8 hours as needed. Pancrelipase, Mug-Dtuz-Ernw, (CREON PO) (8 sources) Pancrelipase, Kjz-Leri-Npmc, (CREON PO) Take by mouth 0 Active QUEtiapine 25 mg oral tablet (20 sources) Atypical Antipsychotic Start: 1 take 1 tablet by mouth three times [...] mg / trimethoprim 160 mg oral tablet (3 sources) Dihydrofolate Reductase Inhibitor Antibacterial, Sulfonamide Antimicrobial [...] Class(es) Dates Sig (Normalized) Sig (Original) amylase 45479 unt / lipase 3000 unt / protease 9500 unt delayed release oral capsule (18 sources) Start: 06-17-2021 End: 12-25-2023 take 3319-2818 capsules by mouth three times daily Onlses-Qymdrljc-Ae ylase (Creon) 3,000-9,500- 15,000 unit Capsule,Delayed Release(Dr/Ec) [...] twice daily. clindamycin 150 mg oral capsule (18 sources) Lincosamide Antibacterial Start: 07-09-2013 End: 11-05-2013 [...] 05, 2013 7:43am take 1 capsule by [facility] three times daily clindamycin (CLEOCIN) 300 MG capsule Take 300 mg by mouth 3 times daily 0 Active esomeprazole 20 mg delayed release oral capsule (19 sources) Proton Pump Inhibitor Start: 09-03-2022 End: [...] on above: Take 1 capsule by mo [facility] once daily. FLUoxetine 20 mg oral capsule (6 sources) Serotonin Reuptake Inhibitor Start: 08-19-20 End: 12-15-19 take 1 capsule by mouth once daily FLUoxetine (PROZAC) 20 mg capsule Indications: Anxiety and depression Take 1 capsule by mouth once daily. 30 capsule 3 08/19/2015 12/14/2024 Discontinued Comment on above: Take 1 capsule by mo [facility] once daily. hydrOXYzine pamoate 50 mg oral [...] on above: Take 1 capsule by mo [facility] once daily. lidocaine hydrochloride 20 [...] Comment on above: Take 1 tablet by [facility] once daily. melatonin 10 mg / vitamin b6 10 mg extended release oral tablet (16 sources) Start: 06-10-2017 End: 12-25-2023 take 1 [...] 3:45am promethazine hydrochloride 25 mg oral tablet (15 sources) Phenothiazine Start: 09-03-2022 End: 06-05-2023 take [...] 2017 12:00am sucralfate 100 mg/ml oral suspension (20 sources) Aluminum Complex Start: 08-20-2022 End: 06-05-2023 [...] Chronic Chronic obstructive pulmonary disease and bronchiectasis (12 sources) Bronchitis; Translations: [Bronchitis, not specified as acute or chronic] Onset: 1 Episodic Developmental disorders (7 sources) Developmental academic disorder; Translations: [Developmental disorder of scholastic skills, unspecified] 07-20-2014 Chronic Diseases of mouth; excluding dental (1 source) Oral lesion; Translations: [Other lesions of oral mucosa] 11-19-2023 Episodic Disorders of teeth and jaw (16 sources) Gingivitis; Translations: [Chronic gingivitis, plaque induced] 10-29-2015 Chronic Disorders of teeth and jaw (20 sources) Dental caries; Translations: [Dental caries, unspecified] Onset: 5 08-05-2015 Episodic E Codes: Natural/environment (17 sources) Bitten or stung by nonvenomous insect and other nonvenomous arthropods, initial encounter; Translations: [Bedbug bite] 10-13-2015 Episodic Esophageal disorders (20 sources) Acid reflux; Translations: [Gastroesophageal reflux disease] 10-28-2015 Chronic Fever of unknown origin (16 sources) Fever with chills; Translations: [Fever, unspecified] 10-29-2015 Episodic Gastritis and duodenitis (16 sources) Gastritis; Translations: [Gastritis, unspecified, without bleeding] 09-03-2022 Episodic Genitourinary symptoms and ill-defined conditions (6 sources) Dysuria; Translations: [Dysuria] Episodic Headache, including migraine (20 sources) Headache; Translations: [Acute headache] Onset: 7 Episodic Immunizations and screening for infectious disease (16 sources) Patient encounter status; Translations: [Encounter for screening for infections with a predominantly sexual mode of transmission] 01-13-2015 Episodic Nausea and vomiting (20 sources) Nausea; Translations: [Nausea and vomiting] Onset: 5 08-18-2016 Episodic Nonspecific chest pain (16 sources) Atypical chest pain; Translations: [Other chest pain] 04-27-2014 Episodic Other ear and sense organ disorders (3 sources) Unilateral earache 04-02-2016 Episodic Other gastrointestinal disorders (16 sources) Diarrhea; Translations: [Diarrhea, unspecified] 08-09-2015 Episodic Other gastrointestinal disorders (11 sources) Swallowing painful; Translations: [Dysphagia, unspecified] 10-18-2022 Episodic Other gastrointestinal disorders (4 sources) History of gastroesophageal reflux disease; Translations: [Personal history of other diseases of the digestive system] 12-25-2023 Episodic Other gastrointestinal disorders (3 sources) Constipation; Translations: [Constipation, unspecified] 08-28-2024 Episodic Other injuries and conditions due to external causes (16 sources) Muscle strain; Translations: [Other injury of unspecified body region, initial encounter] 04-16-2020 Episodic Other injuries and conditions due to external causes (2 sources) Closed injury of head; Translations: [Unspecified injury of head, initial encounter] 04-05-2025 Episodic Other injuries and conditions due to external causes (1 source) Unspecified injury of head, initial encounter; Translations: [Unspecified injury of head, initial encounter] Onset: Episodic Other liver diseases (16 sources) Elevated liver enzymes level; Translations: [High liver transaminase level] 07-02-2021 Episodic Other lower respiratory disease (16 sources) Hypoxia; Translations: [Hypoxemia] 07-02-2021 Episodic Other lower respiratory disease (3 sources) Hemoptysis; Translations: [Hemoptysis] 09-27-2024 Episodic Other nervous system disorders (13 sources) H/O: migraine; Translations: [Personal history of other diseases of the nervous system and sense organs] 09-11-2022 Episodic Other upper respiratory disease (1 source) Allergic rhinitis due to pollen; Translations: [Allergic rhinitis due to pollen] Chronic Other upper respiratory disease (7 sources) Seasonal allergy; Translations: [Other seasonal allergic rhinitis] 07-20-2014 Chronic Other upper respiratory disease (3 sources) Allergic rhinitis; Translations: [Allergic rhinitis, unspecified] 10-21-2024 Chronic Other upper respiratory infections (1 source) Bacterial sinusitis; Translations: [Chronic sinusitis, unspecified] 11-19-2023 Chronic Other upper respiratory infections (20 sources) Viral upper respiratory tract infection; Translations: [Acute upper respiratory infection, unspecified] Onset: 05-17-2014 Episodic Residual codes; unclassified (3 sources) Tobacco use and exposure - finding; Translations: [Tobacco use] 06-24-2024 Episodic Skin and subcutaneous tissue infections (20 sources) Furuncle; Translations: [Abscess] 10-09-2017 Episodic Substance-related disorders (7 sources) Tobacco user; Translations: [Nicotine dependence, unspecified, uncomplicated] 07-20-2014 Chronic Superficial injury; contusion (1 source) Abrasion of nose, initial encounter; Translations: [Abrasion of nose, initial encounter] Onset: 5 Episodic Unclassified (1 source) Unknown / UNK(Unknown) Onset: 7 Unclassified (1 source) Cough, unspecified; Translations: [Cough, unspecified] Onset: 5 Urinary tract infections (5 sources) Urinary tract infectious disease; Translations: [Urinary [...] Reference Range Facility Emergency Department Summary on 06-15-2025 Emergency Department Summary [facility] Medical Records Department [address] [place] [address] Emergency Department Summary 06/15/25 MR#: [id number] Acct: [id number] Name: GILBERTO JOHNSON Rep #: [id number] : 1985 39 From: Chidi Hermosillo DO PCP: Care Physician,No Primary Status:REG ER Location: ED HPI History of Present Illness Chief Complaint: Bite Narrative Narrative: Chief complaint and HPI: 39-year-old male with past medical history of anxiety presents for evaluation of dog tooth scratch to the nose. Patient states that he was outside with a friend's dog he was licking his face when the dog's tooth accidentally scratched his nose. 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 He was worried about scarring which is why presents to the emergency department. He is up-to-date on tetanus. Dog is up-to-date on vaccines. Denies injury elsewhere. Review of systems: See HPI Medications: As listed on the chart Allergies: As listed on the chart PFSH: Per chart Vital signs: As listed on the chart. Reviewed. Physical exam: Gen: A O x3, NAD Head: Normocephalic, atraumatic Eyes: No sclera icterus, conjunctiva clear, PERRL, EOMI ENT: Moist mucous membranes, face atraumatic other than a 1 cm superficial scratch emir to the right lateral nose, face nontender to palpation Neck: Trachea midline, No JVD, full range of motion, nontender CV: RRR, no murmurs, Resp: Lungs CTA BL, no w/r/c Musc: Full ROM, no deformity Skin: Warm, dry Neuro: Alert, oriented, grossly intact, sensation intact Psych: Cooperative, appropriate mood and affect [facility] Medical History Acute sinusitis, unspecified Pancreatitis [...] Date / Time Penicillins Allergy Unknown Verified 06/15/25 21:36 sumatriptan (From Imitrex) Allergy Unknown Verified 06/15/25 21:36 sumatriptan succinate (From Allergy Unknown Verified 06/15/25 21:36 Imitrex) amoxicillin (Amoxicillin) AdvReac Nausea/Vom/ Verified 06/15/25 21:36 Diarrhea Surgical History History of herniorrhaphy [...] use EXAM Physical Exam Const Vital Signs: 06/15/25 21:35 Temperature 98.7 F Temperature Source Oral Pulse Rate 100 Respiratory Rate 18 Blood Pressure 139/109 H Blood Pressure Mean 119 Pulse Ox 99 Oxygen Delivery Method Room Air MDM MDM MDM Narrative Medical decision making narrative: 39-year-old male with past medical history of anxiety presents for evaluation of dog tooth scratch to the nose. Patient states that he was outside with a friend's dog he was licking his face when the dog's tooth accidentally scratched his nose. 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 He is up-to-date on tetanus. Dog is up-to-date on vaccines. Physical exam is unremarkable except for a 1 cm superficial scratch emir to the right lateral nose. Nothing that is gaping or need to repaired. Wound was cleaned. Bacitracin applied. Will place patient on a short course of antibiotics to prevent infection. Patient has penicillin listed as an allergy, he s (more content not included)... [facility] Visit ([facility]) -------- GILBERTO JOHNSON ([id number]) 1985 M Date Time Provider Department 04/27/25 6:15 PM EMIR SIMONS During your visit today, we recorded the following information about you: Temperature Pulse Respiration Blood pressure 97.8 degrees 83/minute 18/minute 141/81 Weight 70 kg Emir Simons PA-C 04/27/2025 6:40 PM Signed [facility] Subjective Gilberto Vargas is a 39 year old male. Patient [...] MG TABLET - BENZONATATE 100 MG CAPSULE MDM Risk of Complications, Morbidity, and/or Mortality Presenting [...] RELIEF) 50 mcg/actuation nasal spray Use 1 Leona in each nostril twice daily. - loratadine [...] Learning disabilit (more content not included)... Normal [facility] Brain/Head without Contrasto n 04-05-2025 Brain/Head without Contrast [facility] Imaging Services [address] [place] [address] Brain/Head without Contrast MR#: [id number] Acct: [id number] Name: GILBERTO JOHNSON Rep #: [id number] : 1985 M 39 From: Nabeel Foster MD PCP: Care Physician,No Primary Status: REG ER Study: Brain/Head without Contrast Date of Exam: 12/26 Exam# [id number] Ordering Dr: Noe Hermosillo DO PROCEDURE: BRAIN/HEAD [...] IMPRESSION: No acute intracranial findings Reading Location: [place] [address] CC: Dr. Chidi Hermosillo DO; No Primary Care Physician [employer]: Signed Normal [facility] Emergency Department Summary on 04-05-2025 Emergency Department Summary [facility] Medical Records Department [address] [place] [address] Emergency Department Summary 04/05/25 MR#: [id number] Acct: [id number] Name: GILBERTO JOHNSON Rep #: [id number] : 1985 39 From: Chidi Hermosillo DO [...] 15 Psych: Cooperative, appropriate mood and affect [facility] Medical History Acute sinusitis, unspecified Pancreatitis [...] Differential navneet (more content not included)... Normal [facility] Emergency Department Summary on 03-19-2025 Emergency Department Summary [facility] Medical Records Department [address] [place] [address] Emergency Department Summary 03/19/25 MR#: [id number] Acct: [id number] Name: GILBERTO JOHNSON Rep #: [id number] : 1985 39 From: Marco Antonio Cintron [...] symptoms: Yes Recent Illness/Hospitaliz ation: No PFSH [facility] Medical History Acute sinusitis, unspecified Pancreatitis Chronic [...] 4 mg PO Q6H PRN nausea and 06/16/2 5 Unknown Rx tablet vomiting #7 tabs [...] 91 Respirat (more content not included)... Normal [facility] CNOVon 12-14-2024 [facility] Office Visit ([facility]) -------- GILBERTO JOHNSON ([id number]) 1985 M Date Time Provider Department 12/14/24 6:45 PM ALEX [facility] During your visit today, we recorded the following information about you: Temperature Pulse Respiration Blood pressure 97.9 degrees 101/minute 16/minute 122/74 Weight 70.5 kg Alex Landers MD 12/14/2024 7:08 PM Signed [facility] Subjective Gilberto Johnson is a [...] RELIEF) 50 mcg/actuation nasal spray Use 1 Leona in each nostril twice daily. - loratadine [...] Varenicline (RUANO (more content not included)... Normal [facility] Emergency Department Summary on 12-06-2024 Emergency Department Summary [facility] Medical Records Department [address] [place] [address] Emergency Department Summary 12/06/24 MR#: [id number] Acct: [id number] Name: GILBERTO JOHNSON Rep #: [id number] : 1985 39 From: Marco Antonio Cintron [...] mouth swelling, tongue swelling or urticaria PFSH PFS Medical History Acute sinusitis, unspecified [...] Benign exam. (more content not included)... Normal [facility] Emergency Department Summary on 10-13-2024 Emergency Department Summary [facility] Medical Records Department [address] [place] [address] Emergency Department Summary 10/13/24 MR#: [id number] Acct: [id number] Name: GILBERTO JOHNSON Rep #: [id number] : 1985 39 From: Antwan Jaimes PCP: [...] he stopped taking his cetirizine for allergies. [facility] Medical History Acute sinusitis, unspecified Pancreatitis [...] stable condition. (more content not included)... Normal [facility] Chest PA and Lateralon 09-19 Chest PA and Lateral [facility] Imaging Services [address] [place], [place] [id number] Chest PA and Lateral MR#: [id number] Acct: [id number] Name: GILBERTO JOHNSON Rep #: [id number] : 1985 M 39 From: Derrek Shepard MD PCP: Care Physician,No Primary Status: REG ER Study: Chest PA and Lateral Date of Exam: 09/19/24 Exam# [id number] Ordering Dr: Michel Elena MD [id number] EXAM: XR CHEST, 2 VIEWS CLINICAL [...] Michel Elena MD; No Primary Care Physician [employer]: Signed [facility] Emergency Department Summary on 09-19-2024 Emergency Department Summary [facility] Medical Records Department [address] [place] [address] Emergency Department Summary 09/19/24 MR#: [id number] Acct: [id number] Name: GILBERTO JOHNSON Rep #: [id number] : 1985 39 From: Michel Elena MD [...] toxic. Genera (more content not included)... Normal [facility] Cheston [facility] Chest [facility] Imaging Services [address] [place], [place] [id number] [facility] Chest MR#: [id number] Acct: [id number] Name: GILBERTO JOHNSON Rep #: [id number] : 1985 M 39 From: Robert Rhoades PCP: Care Physician,No Primary Status: REG ER Study: Acute Abdomen Inc Chest Date of Exam: 08/20/24 Exam# [id number] Ordering Dr: Alan Begum MD [id number] STUDY: X-RAY - ACUTE ABDOMINAL SERIES [...] Alan Begum MD; No Primary Care Physician [employer]: Signed Normal [facility] Emergency Department Summary on 08-20-2024 Emergency Department Summary [facility] Medical Records Department [address] [place] [address] Emergency Department Summary 08/20/24 MR#: [id number] Acct: [id number] Name: GILBERTO JOHNSON Rep #: [id number] : 1985 39 From: Alan Begum MD [...] is more stool present in his colon. [facility] Medical History Acute sinusitis, unspecified Pancreatitis [...] negative n (more content not included)... Normal [facility] Urinalysis, Completeon 08-20 BACTERIA 1+ /hpf Normal None Seen [facility] Comment on above: Order Comment: DAWOOD CTOR TO SPECIFY Performed By: #### L [id number] #### [facility] [address] [place], [place], [id number] RBC 0-5 SEEN Normal 0-[address] [facility] Comment on above: Order Comment: DAWOOD CTOR TO SPECIFY Performed By: #### L 400.0001 #### [facility] [address] [place], [address] EPI,SQUAMOUS 0-5 SEEN Normal 0-[address] [facility] Comment on above: Order Comment: DAWOOD CTOR TO SPECIFY Performed By: #### L 400.0001 #### [facility] [address] [place], [address] Mucus Ql (Urine sed) 0 SEEN Normal [facility] Comment on above: Order Comment: DAWOOD CTOR TO SPECIFY Performed By: #### L 400.0001 #### [facility] [address] [place], [address] WBC 0 SEEN Normal 0-[address] [facility] Comment on above: Order Comment: COLLE CTOR TO SPECIFY Performed By: #### L 400.0001 #### [facility] [address] [place], [address] Urine Cultureon 07-05-2024 URC Culture exhibits no growth. Normal [facility] Comment on above: Performed By: #### M 100.2200 #### [facility] [address] [place], [address] CBC W/Diff, Automatedon Absolute Neut Normal 2.0-7.[address] [facility] Comment on above: Performed By: #### L 500.4050, L100.0100 #### [facility] [address] [place], [address] HCT Normal 40-[address] [facility] Comment on above: Performed By: #### L 500.4050, L100.0100 #### [facility] [address] [place], [address] HGB Normal 13.0-16.[address] [facility] Comment on above: Performed By: #### L [id number], L100.0100 #### [facility] [address] [place], [address] MCH Normal 27.0-32.[address] [facility] Comment on above: Performed By: #### L 500.4050, L100.0100 #### [facility] [address] [place], [address] MCHC Normal 32-[address] [facility] Comment on above: Performed By: #### L 500.4050, L100.0100 #### [facility] [address] [place], [address] MCV Normal 80-[address] [facility] Comment on above: Performed By: #### L 500.4050, L100.0100 #### [facility] [address] [place], [address] NEUT% Normal 47-[address] [facility] Comment on above: Performed By: #### L 500.4050, L100.0100 #### [facility] [address] [place], [address] PLT Normal 150-[address] [facility] Comment on above: Performed By: #### L 500.4050, L100.0100 #### [facility] [address] [place], [address] RBC Normal 4.6-6.[address] [facility] Comment on above: Performed By: #### L 500.4050, L100.0100 #### [facility] [address] [place], [address] RDW CV Normal 11.6-14.[address] [facility] Comment on above: Performed By: #### L 500.4050, L100.0100 #### [facility] [address] [place], [address] RDW SD Normal 35.1-43.[address] [facility] Comment on above: Performed By: #### L 500.4050, L100.0100 #### [facility] [address] [place], [address] WBC Normal 4.4-11.[address] [facility] Comment on above: Performed By: #### L 500.4050, L100.0100 #### [facility] [address] [place], [address] Comprehensive Metabolic Prof zoë 07-04-2024 ALB Normal 3.2-5.[address] [facility] Comment on above: Result Comment: GREGORY ENT DISCHARGED-NO SPECIMEN REC'D Performed By: #### L 500.4050, L100.0100 #### [facility] [address] [place], [address] ALK P Normal 45-[address] [facility] Comment on above: Result Comment: GREGORY ENT DISCHARGED-NO SPECIMEN REC'D Performed By: #### L 500.4050, L100.0100 #### [facility] [address] [place], [address] ALT Normal 16-[address] [facility] Comment on above: Result Comment: GREGORY ENT DISCHARGED-NO SPECIMEN REC'D Performed By: #### L 500.4050, L100.0100 #### [facility] [address] [place], [address] AST Normal 15-[address] [facility] Comment on above: Result Comment: GREGORY ENT DISCHARGED-NO SPECIMEN REC'D Performed By: #### L 500.4050, L100.0100 #### [facility] [address] [place], [address] BUN Normal 7-[address] [facility] Comment on above: Result Comment: GREGORY ENT DISCHARGED-NO SPECIMEN REC'D Performed By: #### L 500.4050, L100.0100 #### [facility] [address] [place], [address] BUN/CRE Normal 10-[address] [facility] Comment on above: Result Comment: GREGORY ENT DISCHARGED-NO SPECIMEN REC'D Performed By: #### L 500.4050, L100.0100 #### [facility] [address] [place], [address] CA,Total Normal 8.5-10.[address] [facility] Comment on above: Result Comment: GREGORY ENT DISCHARGED-NO SPECIMEN REC'D Performed By: #### L 500.4050, L100.0100 #### [facility] [address] [place], [address] CL Normal 98-[address] [facility] Comment on above: Result Comment: GREGORY ENT DISCHARGED-NO SPECIMEN REC'D Performed By: #### L 500.4050, L100.0100 #### [facility] [address] [place], [address] CO2 Normal 21.0-32.[address] [facility] Comment on above: Result Comment: GREGORY ENT DISCHARGED-NO SPECIMEN REC'D Performed By: #### L 500.4050, L100.0100 #### [facility] [address] [place], [address] CREAT,SERUM Normal 0.70-1.[address] [facility] Comment on above: Result Comment: GREGORY ENT DISCHARGED-NO SPECIMEN REC'D Performed By: #### L 500.4050, L100.0100 #### [facility] [address] [place], [address] EST GFR Normal >[address] [facility] Comment on above: Result Comment: GREGORY ENT DISCHARGED-NO SPECIMEN REC'D Performed By: #### L 500.4050, L100.0100 #### [facility] [address] [place], [address] EST GFR - AA Normal >[address] [facility] Comment on above: Result Comment: GREGORY ENT DISCHARGED-NO SPECIMEN REC'D Performed By: #### L 500.4050, L100.0100 #### [facility] [address] [place], [address] GAP Normal 5-[address] [facility] Comment on above: Result Comment: GREGORY ENT DISCHARGED-NO SPECIMEN REC'D Performed By: #### L 500.4050, L100.0100 #### [facility] [address] [place], [address] GLU Normal 74-[address] [facility] Comment on above: Result Comment: GREGORY ENT DISCHARGED-NO SPECIMEN REC'D Performed By: #### L 500.4050, L100.0100 #### [facility] [address] [place], [address] Potassium Normal 3.5-5.[address] [facility] Comment on above: Result Comment: GREGORY ENT DISCHARGED-NO SPECIMEN REC'D Performed By: #### L 500.4050, L100.0100 #### [facility] [address] [place], [address] T BILI Normal 0.20-1.[address] [facility] Comment on above: Result Comment: GREGORY ENT DISCHARGED-NO SPECIMEN REC'D Performed By: #### L 500.4050, L100.0100 #### [facility] [address] [place], [address] T PROT Normal 6.4-8.[address] [facility] Comment on above: Result Comment: GREGORY ENT DISCHARGED-NO SPECIMEN REC'D Performed By: #### L 500.4050, L100.0100 #### [facility] [address] [place], [address] Comprehensive Metabolic Profil Normal 136-[address] [facility] Comment on above: Result Comment: GREGORY ENT DISCHARGED-NO SPECIMEN REC'D Performed By: #### L 500.4050, L100.0100 #### [facility] [address] [place], [address] Emergency Department Summary on 07-04-2024 Emergency Department Summary [facility] Medical Records Department [address] [place] [address] Emergency Department Summary 07/04/24 MR#: [id number] Acct: [id number] Name: GILBERTO JOHNSON Rep #: [id number] : 1985 38 From: Nolan Brady DO [...] some subjective chills but denies any fevers. [facility] Medical History Acute sinusitis, unspecified Pancreatitis Chronic [...] viral illne (more content not included)... Normal [facility] Urinalysis, Completeon 07-04 BACTERIA RARE Normal None Seen [facility] Comment on above: Order Comment: DAWOOD CTOR TO SPECIFY Performed By: #### L 400.0001 #### [facility] [address] [place], [address] WBC >100 SEEN Normal 0-[address] [facility] Comment on above: Order Comment: DAWOOD CTOR TO SPECIFY Performed By: #### L 400.0001 #### [facility] [address] [place], [address] EPI,SQUAMOUS 0 SEEN Normal 0-[address] [facility] Comment on above: Order Comment: DAWOOD CTOR TO SPECIFY Performed By: #### L 400.0001 #### [facility] [address] [place], [address] Mucus Ql (Urine sed) 0 SEEN Normal [facility] Comment on above: Order Comment: DAWOOD CTOR TO SPECIFY Performed By: #### L 400.0001 #### [facility] [address] [place], [address] RBC 0 SEEN Normal 0-[address] [facility] Comment on above: Order Comment: DAWOOD CTOR TO SPECIFY Performed By: #### L 400.0001 #### [facility] [address] [place], [address] Absolute lymphocyte countOrd ered By: Varun Early on 12-25-2023 Lymphocytes Auto (Unsp spec) [#/Vol] 1.00 10*3/uL 0.83-4.[address] [facility] Automated lymphocyte count a s percentage of total leukocytesOrdered By: Varun Early on 12-25-2023 Lymphocytes/100 WBC Auto (Unsp spec) 5.8 % 19-[address] [facility] Basophil percentageOrdered B y: Remus Sharath on 12-25-2023 Basophils/100 WBC (Bld) 0.4 % 0-1 [facility] Bilirubin [Mass/Vol] 1.10 mg/dL 0.20-1.00 [facility] Comment on above: For patients on eltr ombopag therapy, use of Dimension [place] TBIL is not recommended. Chloride [Moles/Vol] 105 mmol/L 98-107 [facility] Eosinophils/100 WBC (Bld) 0.5 % 0-[address] [facility] Glucose [Mass/Vol] 91 mg/dL 74-106 [facility] Hemoglobin (Bld) [Mass/Vol] 17.9 g/dL 13.0-16. [address] [facility] Monocytes/100 WBC (Bld) 7.1 % 0-10 [facility] Neutrophils (Bld) [#/Vol] 14.8 10*3/uL 2.0-7.[address] [facility] Neutrophils/100 WBC (Bld) 85.7 % 47-[address] [facility] Potassium [Moles/Vol] 3.2 mmol/L 3.5-5.1 [facility] Protein [Mass/Vol] 8.4 g/dL 6.4-8.2 [facility] Sodium [Moles/Vol] 142 mmol/L 136-145 [facility] WBC (Bld) [#/Vol] 17.2 10*3/uL 4.4-11.0 [facility] Determination of erythrocyte mean corpuscular volume (MCV)Ordered By: Varun Early on 12-25-2023 MCV (RBC) [Entitic vol] 91.4 fL 80-94 [facility] Erythrocyte distribution wid th ratioOrdered By: Varun Early on 12-25-2023 Erythrocyte distribution width (RBC) [Ratio] 11.9 % 11.6-14.[address] [facility] Erythrocyte distribution wid th standard deviationOrdered By: Varun Early on 12-25-2023 Erythrocyte distribution width (RBC) [Entitic vol] 39.5 fL 35.1-43.9 [facility] Hematocrit Auto (Bld) [Volum e fraction]Ordered By: Varun Early on 12-25-2023 Hematocrit (Bld) [Volume fraction] 51.2 % 40-[address] [facility] Immature granulocytes/100 WB C Auto (Bld)Ordered By: Varun Early on 12-25-2023 Immature granulocytes/100 WBC (Bld) 0.500 % 0.0-0.[address] [facility] Comment on above: IG% - Immature Granu locytes (promyelocytes, myelocytes and metamyelocytes) > 1% indicates that a LEFT SHIFT is Present. Laboratory - Chemistry and C hemistry - challengeOrdered By: Varun Early on 12-25-2023 Albumin/Globulin [Mass ratio] 1.2 {ratio} 0.9-2.[address] [facility] ALP [Catalytic activity/Vol] 69 U/L 45-[address] [facility] ALT [Catalytic activity/Vol] 23 U/L 16-[address] [facility] CO2 [Moles/Vol] 32.0 mmol/L 21.0-32.[address] [facility] Globulin (S) [Mass/Vol] 3.9 g/dL 2.2-4.2 [facility] Lipase [Catalytic activity/Vol] 42 U/L 13-[address] [facility] Comment on above: Please note:LIPASE r evised reference range effective 23. New Lipase methodology. Expected to produce lower values than the previous assay method. NEW Reference Range: 13 - 75 U/L Urea nitrogen/Creatinine [Mass ratio] 15.9 mg/mg 10-[address] [facility] - Hematology and Cell countsOrdered By: Varun Early on 12-25-2023 MCH (RBC) [Entitic mass] 32.0 pg 27.0-32.[address] [facility] MCHC (RBC) [Mass/Vol] 35.0 g/dL 32-36 [facility] Nucleated RBC/100 WBC (Bld) [Ratio] 0 % 0-[address] [facility] Platelet mean volume (Bld) [Entitic vol] 10.4 fL 6.2-12.[address] [facility] Platelets (Bld) [#/Vol] 201 10*3/uL 150-[address] [facility] No Panel InformationOrdered By: Varun Early on 12-25-2023 Estimated Creatinine Clearance Calc 97.58 ml/min [facility] Estimated GFR (MDRD) Amer 116 mL/min >[address] [facility] Comment on above: GFR Calc Estimated GFR (MDRD) Non-Af Amer 96 mL/min >[address] [facility] Comment on above: Non- GFR Calc RBC Auto (Bld) [#/Vol]Ordere d By: Varun Early on 12-25-2023 RBC (Bld) [#/Vol] 5.60 10*6/uL 4.6-6.2 [facility] Serum or plasma calcium rosalia urement (mass/volume)Ordered By: Varun Early on 12-25-2023 Calcium [Mass/Vol] 9.2 mg/dL 8.5-10.1 [facility] Serum or plasma creatinine m easurement (mass/volume)Ordered By: Varun Early on 12-25-2023 Creatinine [Mass/Vol] 0.94 mg/dL 0.70-1.30 [facility] Comment on above: The validity of the calculated GFR & GFRAA in patients over 70 years has not been determined. Clinical correlation is essential. Serum or plasma urea nitroge n measurement (mass/volume)Ordered By: Varun Early on 12-25-2023 Urea nitrogen [Mass/Vol] 15 mg/dL 7-[address] [facility] Thin prep Papanicolaou smear with manual screeningOrdered By: [facility] on 12-25-2023 Thin prep Papanicolaou smear with manual screening 4.5 g/dL 3.2-5.[address] [facility] Thin prep Papanicolaou smear with manual screening 21 U/L 15-[address] [facility] Thin prep Papanicolaou smear with manual screening 5 5-[address] [facility] Absolute lymphocyte countOrd ered By: Dr. Brady on 01-02-2023 Lymphocytes Auto (Unsp spec) [#/Vol] 1.44 10*3/uL 0.83-4.[address] [facility] Basophil percentageOrdered B y: Dr. Brady on 01-02-2023 Basophils/100 WBC (Bld) 0.3 % 0-1 [facility] Chloride [Moles/Vol] 108 mmol/L 98-107 [facility] Eosinophils/100 WBC (Bld) 1.0 % 0-[address] [facility] Glucose [Mass/Vol] 89 mg/dL 74-106 [facility] Neutrophils (Bld) [#/Vol] 6.5 10*3/uL 2.0-7.[address] [facility] Neutrophils/100 WBC (Bld) 71.9 % 47-[address] [facility] Potassium [Moles/Vol] 3.2 mmol/L 3.5-5.1 [facility] Sodium [Moles/Vol] 142 mmol/L 136-145 [facility] WBC (Bld) [#/Vol] 9.0 10*3/uL 4.4-11.0 [facility] Blood erythrocytes count (nu mber/volume)Ordered By: Dr. Brady on 01-02-2023 RBC (Bld) [#/Vol] 4.31 10*6/uL 4.6-6.2 [facility] Blood hemoglobin measurement (mass/volume)Ordered By: Dr. Brady on 01-02-2023 Hemoglobin (Bld) [Mass/Vol] 14.0 g/dL 13.0-16. [address] [facility] Blood lymphocytes/100 leukoc ytesOrdered By: Dr. Brady on 01-02-2023 Lymphocytes/100 WBC (Bld) 16.0 % 19-[address] [facility] Blood monocytes/100 leukocyt esOrdered By: Dr. Brady on 01-02-2023 Monocytes/100 WBC (Bld) 10.5 % 0-10 [facility] Blood platelet mean volumeOr dered By: Dr. Brady on 01-02-2023 Platelet mean volume (Bld) [Entitic vol] 9.8 fL 6.2-12.[address] [facility] Determination of erythrocyte mean corpuscular volume (MCV)Ordered By: Dr. Brady on 01-02-2023 MCV (RBC) [Entitic vol] 91.9 fL 80-94 [facility] Hematocrit Auto (Bld) [Volum e fraction]Ordered By: Dr. Brady on 01-02-2023 Hematocrit (Bld) [Volume fraction] 39.6 % 40-[address] [facility] - Chemistry and C hemistry - challengeOrdered By: Dr. Brady on 01-02-2023 CO2 [Moles/Vol] 30.0 mmol/L 21.0-32.[address] [facility] Urea nitrogen/Creatinine [Mass ratio] 6.0 mg/mg 10-[address] [facility] - Hematology and Cell countsOrdered By: Dr. Brady on 01-02-2023 Erythrocyte distribution width (RBC) [Entitic vol] 40.3 fL 35.1-43.9 [facility] Erythrocyte distribution width (RBC) [Ratio] 11.9 % 11.6-14.[address] [facility] Immature granulocytes/100 WBC (Bld) 0.300 % 0.0-0.[address] [facility] Comment on above: IG% - Immature Granu locytes (promyelocytes, myelocytes and metamyelocytes) > 1% indicates that a LEFT SHIFT is Present. MCH (RBC) [Entitic mass] 32.5 pg 27.0-32.[address] [facility] Nucleated RBC/100 WBC (Bld) [[facility]] 0 [facility] [Mass/Vol]Or dered By: Dr. Brady on 01-02-2023 MCHC (RBC) [Mass/Vol] 35.4 g/dL 32-36 [facility] No Panel InformationOrdered By: Dr. Brady on 01-02-2023 Estimated Creatinine Clearance Calc 93.27 ml/min [facility] Estimated GFR (MDRD) Amer 109 mL/min >[address] [facility] Comment on above: GFR Calc Estimated GFR (MDRD) Non-Af Amer 90 mL/min >[address] [facility] Comment on above: Non- GFR Calc Platelets bldOrdered By: Dr. Brady on 01-02-2023 Platelets (Bld) [#/Vol] 147 10*3/uL 150-[address] [facility] Serum or plasma calcium rosalia urement (mass/volume)Ordered By: Dr. Brady on 01-02-2023 Calcium [Mass/Vol] 8.8 mg/dL 8.5-10.1 [facility] Serum or plasma creatinine m easurement (mass/volume)Ordered By: Dr. Brady on 01-02-2023 Creatinine [Mass/Vol] 1.00 mg/dL 0.70-1.30 [facility] Comment on above: The validity of the calculated GFR & GFRAA in patients over 70 years has not been determined. Clinical correlation is essential. Serum or plasma urea nitroge n measurement (mass/volume)Ordered By: Dr. Brady on 01-02-2023 Urea nitrogen [Mass/Vol] 6 mg/dL 7-[address] [facility] Thin prep Papanicolaou smear with manual screeningOrdered By: Dr. Brady on 01-02-2023 Thin prep Papanicolaou smear with manual screening 4 5-[address] [facility] Throat Streptococcus pyogene s antigen detection by immunofluorescenceOrdered By: Dr. Begum on 10-11-2022 S. pyogenes Ag IF Ql (Throat) [facility] STREPAon 10-03-2022 Group A Strep PCR Negative Normal Negative [facility] ([place]) Comment on above: Performed By: #### S TREPA #### [facility] [address] [address] [facility] Strep PCR Int Normal Aul [facility] ([place]) Comment on above: Result Comment: Nega tive [...] Performed By: #### S PRINCESS #### [facility] [address] [address] LABORATORYOrdered By: Modesto Tam on 10-02-2022 S. [...] 09-11-2022 S. pyogenes Ag IF Ql (Throat) [facility] Absolute lymphocyte countOrd ered By: Dr. Pena on 09-03-2022 Lymphocytes Auto (Unsp spec) [#/Vol] 0.50 10*3/uL 0.83-4.[address] [facility] Basophil percentageOrdered B y: Dr. Pena on 09-03-2022 Basophils/100 WBC (Bld) 0.3 % 0-1 [facility] Bilirubin [Mass/Vol] 1.60 mg/dL 0.20-1.00 [facility] Comment on above: For patients on eltr ombopag therapy, use of Dimension [place] TBIL is not recommended. Chloride [Moles/Vol] 109 mmol/L 98-107 [facility] Eosinophils/100 WBC (Bld) 0.0 % 0-[address] [facility] Glucose [Mass/Vol] 100 mg/dL 74-106 [facility] Comment on above: Fasting Glucose resu lt from 100 to 125 mg/dL suggests IMPAIRED HOMEOSTASIS per A.D.A. criteria. Neutrophils (Bld) [#/Vol] 10.0 10*3/uL 2.0-7.[address] [facility] Neutrophils/100 WBC (Bld) 89.3 % 47-[address] [facility] Potassium [Moles/Vol] 3.7 mmol/L 3.5-5.1 [facility] Protein [Mass/Vol] 7.4 g/dL 6.4-8.2 [facility] Sodium [Moles/Vol] 144 mmol/L 136-145 [facility] WBC (Bld) [#/Vol] 11.2 10*3/uL 4.4-11.0 [facility] Blood erythrocytes count (nu mber/volume)Ordered By: Dr. Pena on 09-03-2022 RBC (Bld) [#/Vol] 5.24 10*6/uL 4.6-6.2 [facility] Blood hemoglobin measurement (mass/volume)Ordered By: Dr. Pena on 09-03-2022 Hemoglobin (Bld) [Mass/Vol] 16.8 g/dL 13.0-16. [address] [facility] Blood lymphocytes/100 leukoc ytesOrdered By: Dr. Pena on 09-03-2022 Lymphocytes/100 WBC (Bld) 4.5 % 19-[address] [facility] Blood manual differential co mment interpretation (narrative result)Ordered By: Dr. Pena on 09-03-2022 Manual differential comment Vincent (Bld) [Interp] SEE COMMENT [facility] Comment on above: LYMPHOPENIA NOTED Blood monocytes/100 leukocyt esOrdered By: [address] Pena on 09-03-2022 Monocytes/100 WBC (Bld) 5.5 % 0-10 [facility] Blood platelet adequacy dete ction by light microscopyOrdered By: Dr. Pena on 09-03-2022 Platelets LM Ql (Bld) ADEQUATE ADEQ [facility] Blood platelet mean volumeOr dered By: Dr. Pena on 09-03-2022 Platelet mean volume (Bld) [Entitic vol] 10.5 fL 6.2-12.[address] [facility] Determination of erythrocyte mean corpuscular volume (MCV)Ordered By: Dr. Pena on 09-03-2022 MCV (RBC) [Entitic vol] 90.5 fL 80-94 [facility] Hematocrit Auto (Bld) [Volum e fraction]Ordered By: Dr. Pena on 09-03-2022 Hematocrit (Bld) [Volume fraction] 47.4 % 40-[address] [facility] - Chemistry and C hemistry - challengeOrdered By: Dr. Pena on 09-03-2022 ALP [Catalytic activity/Vol] 67 U/L 45-[address] [facility] ALT [Catalytic activity/Vol] 24 U/L 16-[address] [facility] CO2 [Moles/Vol] 30.0 mmol/L 21.0-32.[address] [facility] Globulin (S) [Mass/Vol] 3.2 g/dL 2.2-4.2 [facility] Lipase [Catalytic activity/Vol] 50 U/L 73-[address] [facility] Urea nitrogen/Creatinine [Mass ratio] 9.8 mg/mg 10-[address] [facility] - Hematology and Cell countsOrdered By: Dr. Pena on 09-03-2022 Anisocytosis Ql (Bld) RARE [facility] Erythrocyte distribution width (RBC) [Entitic vol] 40.6 fL 35.1-43.9 [facility] Erythrocyte distribution width (RBC) [Ratio] 12.5 % 11.6-14.[address] [facility] Immature granulocytes/100 WBC (Bld) 0.400 % 0.0-0.[address] [facility] Comment on above: IG% - Immature Granu locytes (promyelocytes, myelocytes and metamyelocytes) > 1% indicates that a LEFT SHIFT is Present. MCH (RBC) [Entitic mass] 32.1 pg 27.0-32.[address] [facility] Nucleated RBC/100 WBC (Bld) [Ratio] 0 % 0-[address] [facility] MCHC Auto (RBC) [Mass/Vol]Or dered By: Dr. Pena on 09-03-2022 MCHC (RBC) [Mass/Vol] 35.4 g/dL 32-36 [facility] Macrocytes detectionOrdered By: Dr. Pena on 09-03-2022 Macrocytes Ql (Bld) RARE [facility] No Panel InformationOrdered By: Dr. Pena on 09-03-2022 Estimated Creatinine Clearance Calc 108.90 ml/min [facility] Estimated GFR (MDRD) Amer 138 mL/min >[address] [facility] Comment on above: GFR Calc Estimated GFR (MDRD) Non-Af Amer 114 mL/min >[address] [facility] Comment on above: Non- GFR Calc Ethyl Alcohol Level 5.0 mg/dL [facility] Comment on above: The serum:whole bloo d ethanol ratio is approximately 1.14and varies slightly with hematocrit. Medical Alcohol reference interval and critical value innon-tolerant individuals; 50 - 100 Impairment 100 Intoxication 100 - 250 Severe Poisoning 250 - 400 Deep/possible fatal coma Influenza Types A,B Direct FA (JESS) [facility] Platelets bldOrdered By: Dr. Pena on 09-03-2022 Platelets (Bld) [#/Vol] 151 10*3/uL 150-[address] [facility] RBC morphologyOrdered By: Dr Dick Pena on 09-03-2022 RBC morphology finding Nom (Bld) N CHROM NORMAL NORM C&C [facility] Serum or plasma albumin rosalia urement (mass/volume)Ordered By: Dr. Pena on 09-03-2022 Albumin [Mass/Vol] 4.2 g/dL 3.2-5.0 [facility] Serum or plasma albumin/glob ulin mass ratioOrdered By: Dr. Pena on 09-03-2022 Albumin/Globulin [Mass ratio] 1.3 {ratio} 0.9-2.[address] [facility] Serum or plasma calcium rosalia urement (mass/volume)Ordered By: Dr. Pena on 09-03-2022 Calcium [Mass/Vol] 8.8 mg/dL 8.5-10.1 [facility] Serum or plasma creatinine m easurement (mass/volume)Ordered By: Dr. Pena on 09-03-2022 Creatinine [Mass/Vol] 0.82 mg/dL 0.70-1.30 [facility] Comment on above: The validity of the calculated GFR & GFRAA in patients over 70 years has not been determined. Clinical correlation is essential. Serum or plasma urea nitroge n measurement (mass/volume)Ordered By: Dr. Pena on 09-03-2022 Urea nitrogen [Mass/Vol] 8 mg/dL 7-[address] [facility] Thin prep Papanicolaou smear with manual screeningOrdered By: Dr. Pena on 09-03-2022 Thin prep Papanicolaou smear with manual screening 16 U/L 15-[address] [facility] Thin prep Papanicolaou smear with manual screening 5 5-[address] [facility] Basophil percentageOrdered B y: Dr. Richards on 08-20-2022 Basophil percentage 0 SEEN /hpf 0-5 [facility] Bilirubin Test strip Ql (U)O rdered By: Dr. Richards on 08-20-2022 Bilirubin Ql (U) Negative Negative [facility] Ketones Test strip Ql (U)Ord ered By: Dr. Richards on 08-20-2022 Ketones Ql (U) Negative Negative [facility] Mucus LM Ql (Urine sed)Order ed By: Dr. Richards on 08-20-2022 Mucus Ql (Urine sed) 0 SEEN /hpf [facility] Nitrite Test strip Ql (U)Ord ered By: Dr. Richards on 08-20-2022 Nitrite Ql (U) Negative Negative [facility] Protein Test strip Ql (U)Ord ered By: Dr. Richards on 08-20-2022 Protein Ql (U) Negative Negative [facility] Squamous epithelial cells de tection in urine sediment by light microscopyOrdered By: Dr. Richards on 08-20-2022 Epithelial cells.squamous LM Ql (Urine sed) 0 SEEN /hpf 0-[address] [facility] Urine blood detectionOrdered By: Dr. Richards on 08-20-2022 RBC Ql (U) Negative Negative [facility] RBC Ql (U) 0 SEEN /hpf 0-[address] [facility] Urine clarityOrdered By: Dr. Richards on 08-20-2022 Clarity (U) Clear Clear [facility] Urine color determinationOrd ered By: Dr. Richards on 08-20-2022 Color (U) Straw Yellow [facility] Urine glucose detectionOrder ed By: Dr. Richards on 08-20-2022 Glucose Ql (U) Normal mg/dl Normal [facility] Urine leukocyte esterase det ection by dipstickOrdered By: Dr. Richards on 08-20-2022 Leukocyte esterase Test strip Ql (U) Negative Negative [facility] Urine pHOrdered By: Dr. Kapil cha on 08-20-2022 pH (U) 7.0 [pH] 5.0 - 8.[address] [facility] Urine sediment bacteria coun t by microscopy (number/high power field)Ordered By: Dr. Richards on 08-20-2022 Bacteria LM.HPF (Urine sed) [#/Area] 0 /[HPF] None Seen [facility] Urine specific gravity measu rementOrdered By: Dr. Richards on 08-20-2022 Specific gravity (U) [Rel density] 1.010 1.002-1.[address] [facility] Urobilinogen Auto test strip Ql (U)Ordered By: Dr. Richards on 08-20-2022 Urobilinogen Ql (U) Normal mg/dl Normal [facility] Absolute lymphocyte counton 07-30-2022 Lymphocytes Auto (Unsp spec) [#/Vol] 0.88 10*3/uL 0.83-4.[address] [facility] Work Phone: Basophil percentageon 2021 Basophils/100 WBC (Bld) 0.1 % 0-1 [facility] Work Phone: Bilirubin [Mass/Vol] 1.70 mg/dL 0.20-1.00 [facility] Work Phone: Comment on above: For patients on eltr ombopag therapy, use of Dimension [place] TBIL is not recommended. Chloride [Moles/Vol] 106 mmol/L 98-107 [facility] Work Phone: Eosinophils/100 WBC (Bld) 0.1 % 0-[address] [facility] Work Phone: Glucose [Mass/Vol] 109 mg/dL 74-106 [facility] Work Phone: Comment on above: Fasting Glucose resu lt from 100 to 125 mg/dL suggests IMPAIRED HOMEOSTASIS per A.D.A. criteria. Neutrophils (Bld) [#/Vol] 5.1 10*3/uL 2.0-7.[address] [facility] Work Phone: Neutrophils/100 WBC (Bld) 75.1 % 47-[address] [facility] Work Phone: Potassium [Moles/Vol] 3.8 mmol/L 3.5-5.1 [facility] Work Phone: Protein [Mass/Vol] 7.4 g/dL 6.4-8.2 [facility] Work Phone: Sodium [Moles/Vol] 137 mmol/L 136-145 [facility] Work Phone: WBC (Bld) [#/Vol] 6.8 10*3/uL 4.4-11.0 [facility] Work Phone: Blood erythrocytes count (nu mber/volume)on 07-30-2022 RBC (Bld) [#/Vol] 4.96 10*6/uL 4.6-6.2 [facility] Work Phone: Blood hemoglobin measurement (mass/volume)on 07-30-2022 Hemoglobin (Bld) [Mass/Vol] 16.2 g/dL 13.0-16. [address] [facility] Work Phone: Blood lymphocytes/100 leukoc yteson 07-30-2022 Lymphocytes/100 WBC (Bld) 12.9 % 19-[address] [facility] Work Phone: Blood monocytes/100 leukocyt eson 07-30-2022 Monocytes/100 WBC (Bld) 11.4 % 0-10 [facility] Work Phone: Blood platelet mean volumeon 07-30-2022 Platelet mean volume (Bld) [Entitic vol] 10.2 fL 6.2-12.[address] [facility] Work Phone: Determination of erythrocyte mean corpuscular volume (MCV)on 07-30-2022 MCV (RBC) [Entitic vol] 87.7 fL 80-94 [facility] Work Phone: Hematocrit Auto (Bld) [Volum e fraction]on 07-30-2022 Hematocrit (Bld) [Volume fraction] 43.5 % 40-[address] [facility] Work Phone: Laboratory - Chemistry and C hemistry - challengeon 07-30-2022 ALP [Catalytic activity/Vol] 66 U/L 45-[address] [facility] Work Phone: ALT [Catalytic activity/Vol] 22 U/L 16-[address] [facility] Work Phone: CO2 [Moles/Vol] 26.0 mmol/L 21.0-32.[address] [facility] Work Phone: Globulin (S) [Mass/Vol] 3.3 g/dL 2.2-4.2 [facility] Work Phone: Lipase [Catalytic activity/Vol] 54 U/L 73-[address] [facility] Work Phone: Urea nitrogen/Creatinine [Mass ratio] 9.2 mg/mg 10-[address] [facility] Work Phone: Laboratory - Hematology and Cell countson 07-30-2022 Erythrocyte distribution width (RBC) [Entitic vol] 37.7 fL 35.1-43.9 [facility] Work Phone: Erythrocyte distribution width (RBC) [Ratio] 11.8 % 11.6-14.[address] [facility] Work Phone: Immature granulocytes/100 WBC (Bld) 0.400 % 0.0-0.[address] [facility] Work Phone: [phone] Comment on above: IG% - Immature Granu locytes (promyelocytes, myelocytes and metamyelocytes) > 1% indicates that a LEFT SHIFT is Present. MCH (RBC) [Entitic mass] 32.7 pg 27.0-32.[address] [facility] Work Phone: [phone] Nucleated RBC/100 WBC (Bld) [Ratio] 0 % 0-[address] [facility] Work Phone: [phone] MCHC Auto (RBC) [Mass/Vol]on 07-30-2022 MCHC (RBC) [Mass/Vol] 37.2 g/dL 32-36 [facility] Work Phone: [phone] Panel Informationon 07-30 Estimated Creatinine Clearance Calc 82.55 ml/min [facility] Work Phone: [phone] Estimated GFR (MDRD) Amer 99 mL/min >[address] [facility] Work Phone: [phone] Comment on above: GFR Calc Estimated GFR (MDRD) Non-Af Amer 82 mL/min >[address] [facility] Work Phone: [phone] Comment on above: Non- GFR Calc Platelets bldon 07-30-2022 Platelets (Bld) [#/Vol] 166 10*3/uL 150-[address] [facility] Work Phone: [phone] Serum or plasma albumin rosalia urement (mass/volume)on 07-30-2022 Albumin [Mass/Vol] 4.1 g/dL 3.2-5.0 [facility] Work Phone: [phone] Serum or plasma albumin/glob ulin mass ratioon 07-30-2022 Albumin/Globulin [Mass ratio] 1.2 {ratio} 0.9-2.[address] [facility] Work Phone: [phone] Serum or plasma calcium rosalia urement (mass/volume)on 07-30-2022 Calcium [Mass/Vol] 9.1 mg/dL 8.5-10.1 [facility] Work Phone: Serum or plasma creatinine m easurement (mass/volume)on 07-30-2022 Creatinine [Mass/Vol] 1.09 mg/dL 0.70-1.30 [facility] Work Phone: Comment on above: The validity of the calculated GFR & GFRAA in patients over 70 years has not been determined. Clinical correlation is essential. Serum or plasma urea nitroge n measurement (mass/volume)on 07-30-2022 Urea nitrogen [Mass/Vol] 10 mg/dL 7-[address] [facility] Work Phone: Thin prep Papanicolaou smear with manual screeningon 07-30-2022 Thin prep Papanicolaou smear with manual screening 24 U/L 15-[address] [facility] Work Phone: [phone] Thin prep Papanicolaou smear with manual screening 5 5-[address] [facility] Work Phone: Absolute lymphocyte counton 07-29-2022 Lymphocytes Auto (Unsp spec) [#/Vol] 0.96 10*3/uL 0.83-4.[address] [facility] Work Phone: Basophil percentageon 2021 Basophils/100 WBC (Bld) 0.3 % 0-1 [facility] Work Phone: Bilirubin [Mass/Vol] 1.60 mg/dL 0.20-1.00 [facility] Work Phone: Comment on above: For patients on eltr ombopag therapy, use of Dimension [place] TBIL is not recommended. Chloride [Moles/Vol] 111 mmol/L 98-107 [facility] Work Phone: Eosinophils/100 WBC (Bld) 0.2 % 0-[address] [facility] Work Phone: Glucose [Mass/Vol] 92 mg/dL 74-106 [facility] Work Phone: Neutrophils (Bld) [#/Vol] 10.1 10*3/uL 2.0-7.[address] [facility] Work Phone: Neutrophils/100 WBC (Bld) 83.7 % 47-[address] [facility] Work Phone: Potassium [Moles/Vol] 3.8 mmol/L 3.5-5.[address] [facility] Work Phone: Protein [Mass/Vol] 7.7 g/dL 6.4-8.2 [facility] Work Phone: Sodium [Moles/Vol] 142 mmol/L 136-[facility] Work Phone: WBC (Bld) [#/Vol] 12.1 10*3/uL 4.4-11.0 [facility] Work Phone: Blood erythrocytes count (nu mber/volume)on 07-29-2022 RBC (Bld) [#/Vol] 5.05 10*6/uL 4.6-6.2 [facility] Work Phone: Blood hemoglobin measurement (mass/volume)on 07-29-2022 Hemoglobin (Bld) [Mass/Vol] 16.6 g/dL 13.0-16. [address] [facility] Work Phone: Blood lymphocytes/100 leukoc yteson 07-29-2022 Lymphocytes/100 WBC (Bld) 7.9 % 19-[address] [facility] Work Phone: Blood monocytes/100 leukocyt eson 07-29-2022 Monocytes/100 WBC (Bld) 7.4 % 0-10 [facility] Work Phone: Blood platelet mean volumeon 07-29-2022 Platelet mean volume (Bld) [Entitic vol] 10.0 fL 6.2-12.[address] [facility] Work Phone: Determination of erythrocyte mean corpuscular volume (MCV)on 07-29-2022 MCV (RBC) [Entitic vol] 88.1 fL 80-94 [facility] Work Phone: Hematocrit Auto (Bld) [Volum e fraction]on 07-29-2022 Hematocrit (Bld) [Volume fraction] 44.5 % 40-[address] [facility] Work Phone: [phone] Laboratory - Chemistry and C hemistry - challengeon 07-29-2022 ALP [Catalytic activity/Vol] 70 U/L 45-[address] [facility] Work Phone: [phone] ALT [Catalytic activity/Vol] 26 U/L 16-[address] [facility] Work Phone: [phone] CO2 [Moles/Vol] 24.0 mmol/L 21.0-32.[address] [facility] Work Phone: [phone] Globulin (S) [Mass/Vol] 3.3 g/dL 2.2-4.2 [facility] Work Phone: [phone] Lipase [Catalytic activity/Vol] 73 U/L 73-[address] [facility] Work Phone: [phone] Urea nitrogen/Creatinine [Mass ratio] 6.3 mg/mg 10-[address] [facility] Work Phone: [phone] Laboratory - Hematology and Cell countson 07-29-2022 Erythrocyte distribution width (RBC) [Entitic vol] 37.4 fL 35.1-43.9 [facility] Work Phone: [phone] Erythrocyte distribution width (RBC) [Ratio] 11.8 % 11.6-14.[address] [facility] Work Phone: [phone] Immature granulocytes/100 WBC (Bld) 0.500 % 0.0-0.[address] [facility] Work Phone: [phone] Comment on above: IG% - Immature Granu locytes (promyelocytes, myelocytes and metamyelocytes) > 1% indicates that a LEFT SHIFT is Present. MCH (RBC) [Entitic mass] 32.9 pg 27.0-32.[address] [facility] Work Phone: [phone] Nucleated RBC/100 WBC (Bld) [Ratio] 0 % 0-[address] [facility] Work Phone: [phone] MCHC Auto (RBC) [Mass/Vol]on 07-29-2022 MCHC (RBC) [Mass/Vol] 37.3 g/dL 32-36 [facility] Work Phone: No Panel Informationon 07-29 Estimated Creatinine Clearance Calc 91.48 ml/min [facility] Work Phone: Estimated GFR (MDRD) Amer 117 mL/min >[address] [facility] Work Phone: Comment on above: GFR Calc Estimated GFR (MDRD) Non-Af Amer 96 mL/min >[address] [facility] Work Phone: Comment on above: Non- GFR Calc Platelets bldon 07-29-2022 Platelets (Bld) [#/Vol] 176 10*3/uL 150-[address] [facility] Work Phone: Serum or plasma albumin rosalia urement (mass/volume)on 07-29-2022 Albumin [Mass/Vol] 4.4 g/dL 3.2-5.0 [facility] Work Phone: Serum or plasma albumin/glob ulin mass ratioon 07-29-2022 Albumin/Globulin [Mass ratio] 1.3 {ratio} 0.9-2.[address] [facility] Work Phone: Serum or plasma calcium rosalia urement (mass/volume)on 07-29-2022 Calcium [Mass/Vol] 9.1 mg/dL 8.5-10.1 [facility] Work Phone: Serum or plasma creatinine m easurement (mass/volume)on 07-29-2022 Creatinine [Mass/Vol] 0.94 mg/dL 0.70-1.30 [facility] Work Phone: Comment on above: The validity of the calculated GFR & GFRAA in patients over 70 years has not been determined. Clinical correlation is essential. Serum or plasma urea nitroge n measurement (mass/volume)on 07-29-2022 Urea nitrogen [Mass/Vol] 6 mg/dL 7-[address] [facility] Work Phone: Thin prep Papanicolaou smear with manual screeningon 07-29-2022 Thin prep Papanicolaou smear with manual screening 23 U/L 15-[address] [facility] Work Phone: Thin prep Papanicolaou smear with manual screening 7 5-[address] [facility] Work Phone: CULTURE URINEon 05-04-2022 CULTURE URINE CULTURE URINE --> Status: F No growth (<1,000 CFU/ml). Normal [facility] Comment on above: Performed By: #### C /UR ####[facility] [place] [address] Chlamydia and GC PCR Panelon 05-03-2022 Chlamydia and GC PCR Panel Chlamydia trachomatis PCR --> Status: F NOT Detected Chlamydia trachomatis Nucleic Acid NOT Detected by DNA Amplification using the [employer]. Culture is the only recommended test [...] as suspected child abuse or molestation. Normal [facility] Comment on above: Performed By: #### C TNGP ####[facility] [place] [address] Complete Urinalysison 2021 Bacteria Few (1-5) Abnormal Negative [facility] Comment on above: Result Comment: . Performed By: #### C UA2 #### [facility] [address] [place] [address] RBC, Urine 11 - 25 Abnormal 0-2 [facility] Comment on above: Result Comment: . Performed By: #### C UA2 #### [facility] [address] [place] [address] Squamous Epithelial 3 - 5 Normal 3-5 [facility] Comment on above: Result Comment: . Performed By: #### C UA2 #### [facility] [address] [place] [address] VOLUME, URINE 12 ml Normal [facility] Comment on above: Result Comment: . Performed By: #### C UA2 #### [facility] [address] [place] [address] WBC, Urine 51 - 100 Abnormal 0-5 [facility] Comment on above: Result Comment: . Performed By: #### C UA2 #### [facility] [address] [place] [address] Appearance (U) Turbid Abnormal Clear [facility] Comment on above: Result Comment: . Performed By: #### C UA2 #### [facility] [address] [place] [address] Bilirubin,Urine Negative Normal Negative [facility] Comment on above: Result Comment: . Performed By: #### C UA2 #### [facility] [address] [place] [address] Color (U) LIGHT BROWN Abnormal Lt. Yellow [facility] Comment on above: Result Comment: . Performed By: #### C UA2 #### [facility] [address] [place] [address] Glucose Ql (U) Normal Normal Normal (<70) [facility] Comment on above: Result Comment: . Performed By: #### C UA2 #### [facility] [address] [place] [address] Ketone,Urine Negative Normal Negative [facility] Comment on above: Result Comment: . Performed By: #### C UA2 #### [facility] [address] [place] [address] Leukocytes,Urine 500 Analy/uL Abnormal Negative [facility] Comment on above: Result Comment: . Performed By: #### C UA2 #### [facility] [address] [place] [address] Nitrites,Urine Negative Normal Negative [facility] Comment on above: Result Comment: . Performed By: #### C UA2 #### [facility] [address] [place] [address] Occult Blood,Urine > 1.0 Abnormal Negative [facility] Comment on above: Result Comment: . Performed By: #### C UA2 #### [facility] [address] [place] [address] pH,Urine 6.0 Normal 5.0-8.0 [facility] Comment on above: Result Comment: . Performed By: #### C UA2 #### [facility] [address] [place] [address] Protein (U) [Mass/Vol] 70 mg/dL Abnormal Negative [facility] Comment on above: Result Comment: . Performed By: #### C UA2 #### [facility] [address] [place] [address] Specific [place],Urine < 1.005 Abnormal 1.005 - 1.030 [facility] Comment on above: Result Comment: . Performed By: #### C UA2 #### [facility] [address] [place] [address] Urobilinogen,Urine Normal Normal Normal (0-1) [facility] Comment on above: Result Comment: . Performed By: #### C UA2 #### [facility] [address] [place] [address] Urinalysison 05-02-2022 Appearance (U) Turbid Abnormal Clear [...] /[HPF] [facility] Comment on above: . Specific [place], Urine Abnormal S [facility] Comment on above: . Squam Epithel, UA 3-5 3 - 5 /[HPF] [facility] Comment on above: . Urobilinogen, Urine Normal Normal (0-1) mg/dL [facility] Comment on above: . Volume 12 ml [facility] Comment on above: . WBC, UA /[HPF] Abnormal 0 - 5 /[HPF] [facility] Comment on above: . [facility], [address] , [place], [place] [id number] [place] [address] LAB [facility] CULTURE URINEon 03-31-2022 CULTURE URINE CULTURE URINE --> Status: F Insignificant growth based on current clinical guidelines. Normal [facility] Comment on above: Performed By: #### C /UR ####[facility] [address] [place] [address] CBC with Auto Differentialon 03-28-2022 Absolute Baso [...] [Mass/Vol] 15.4 g/dL 13.0 - 18.0 g/dL [facility] Interpretation and review of laboratory results [...] [#/Vol] 6.9 10*3/uL 3.6 - 10.7 10*3/uL [facility] Test Performed by [facility], [address] [place] [address]. [address] LAB [facility] CT Abdomen and Pelvis W cont rast Kristen 03-28-2022 Patient Name: GILBERTO JOHNSON Computed Tomography ACCESSION EXAM DATE/TIME PROCEDURE ORDERING PROVIDER [id number] 03/28/2022 15:[address] Abdomen/Pelvis w/ IV MD ULICES, PEYTON Beltran Contrast (IV Onl CPT code 59683 Q9967 Reason For Exam (CT Abdomen/Pelvis w/ [...] JEFFREY Transcribed Date and Time: 03/28/2022 3:43 [facility] RAD Liam Mcdonough MD - 03/28/2022 Patient Name: GILBERTO JOHNSON Computed Tomography ACCESSION EXAM DATE/TIME PROCEDURE ORDERING PROVIDER [id number] 03/28/2022 15:[address] Abdomen/Pelvis w/ IV MD ELENA DOUGALAS R. Contrast (IV Onl CPT code 17788 Q9967 Reason For Exam (CT Abdomen/Pelvis w/ [...] Tomography ACCESSION EXAM DATE/TIME PROCEDURE ORDERING PROVIDER [id number] 03/28/2022 15:[address] Abdomen/Pelvis w/ IV MD ELENA DOUGALAS R. Contrast (IV Onl CPT code 73943 Q9967 Reason For Exam (CT Abdomen/Pelvis w/ [...] Transcribed Date and Time: 03/28/2022 3:43 Normal [facility] Comp Metabolic Panelon 03-28 ALP [Catalytic activity/Vol] 55 U/L Normal 38-126 [facility] Comment on above: Performed By: #### H EMDF, LIPA4, CMP3 ####[address] [place] [address] ALT [Catalytic activity/Vol] 14 U/L Normal 0-49 [facility] Comment on above: Result Comment: The ALT test is performed by an updated assay method. Please note that the reference intervals have been changed and are now sex specific. Performed By: #### H EMDF, LIPA4, CMP3 ####[place] [address] [place] [address] Calcium [Mass/Vol] 9.4 mg/dL Normal 8.4-10.4 [facility] Comment on above: Performed By: #### H EMDF, LIPA4, CMP3 ####[address] [place] [address] Glucose [Mass/Vol] 87 mg/dL Normal 70-100 [facility] Comment on above: Performed By: #### H EMDF, LIPA4, CMP3 ####[address] [place] [address] Protein [Mass/Vol] 7.6 g/dL Normal 6.3-8.2 [facility] Comment on above: Performed By: #### H EMDSohail, LIPA4, CMP3 ####[facility] [place] [address] Urea nitrogen [Mass/Vol] 7 mg/dL Normal 7-17 [facility] Comment on above: Performed By: #### H EMDSohail, LIPA4, CMP3 ####[facility] [place] [address] Anion gap [Moles/Vol] 7 mmol/L Normal 3-13 [facility] Comment on above: Performed By: #### H GISEL, LIPA4, CMP3 ####[facility] [place] [address] AST [Catalytic activity/Vol] 35 U/L Normal 15-46 [facility] Comment on above: Performed By: #### H GISEL, LIPA4, CMP3 ####[facility] [place] [address] Bilirubin [Mass/Vol] 1.5 mg/dL High 0.2-1.3 [facility] Comment on above: Performed By: #### H EMDSohail, LIPA4, CMP3 ####[facility] [place] [address] CO2 [Moles/Vol] 32 mmol/L High 22-30 [facility] Comment on above: Performed By: #### H EMDF, LIPA4, CMP3 ####[facility] [place] [address] Creatinine [Mass/Vol] 0.84 mg/dL Normal 0.52-1.25 [facility] Comment on above: Performed By: #### H EMDF, LIPA4, CMP3 ####[facility] [place] [address] eGFR OTHER > 90.0 Normal >60 [facility] Comment on above: Result Comment: KDIG [...] tubular creatinine secretion. Performed By: #### H TAMEKA BATRESA4, CMP3 ####[facility] [place] [address] GFR/1.73 sq M.predicted among blacks MDRD (S/P/Bld) [Vol rate/Area] mL/min/{1.73_m2} Normal >60 [facility] Comment on above: Performed By: #### H EMDF, LIPA4, CMP3 ####[facility] [place] [address] Potassium [Moles/Vol] 3.5 mmol/L Normal 3.5-5.1 [facility] Comment on above: Performed By: #### H EMDF, LIPA4, CMP3 ####[facility] [place] [address] Sodium [Moles/Vol] 140 mmol/L Normal 135-145 [facility] Comment on above: Performed By: #### H EMDF, LIPA4, CMP3 ####[facility] [place] [address] Albumin [Mass/Vol] 4.5 g/dL Normal 3.5-5.0 [facility] Comment on above: Performed By: #### H EMDF, LIPA4, CMP3 ####[facility] [place] [address] Chloride [Moles/Vol] 101 mmol/L Normal 98-107 [facility] Comment on above: Performed By: #### H EMDF, LIPA4, CMP3 ####[facility] [place] [address] Complete Urinalysison 2021 Appearance (U) Clear Normal Clear [facility] Comment on above: Result Comment: . Performed By: #### C UA2 #### [facility] [address] [place] [address] Bilirubin,Urine Negative Normal Negative [facility] Comment on above: Result Comment: . Performed By: #### C UA2 #### [facility] [address] [place] [address] Color (U) COLORLESS Normal Lt. Yellow [facility] Comment on above: Result Comment: . Performed By: #### C UA2 #### [facility] [address] [place] [address] Glucose Ql (U) Normal Normal Normal (<70) [facility] Comment on above: Result Comment: . Performed By: #### C UA2 #### [facility] [address] [place] [address] Ketone,Urine Negative Normal Negative [facility] Comment on above: Result Comment: . Performed By: #### C UA2 #### [facility] [address] [place] [address] Leukocytes,Urine Negative Normal Negative [facility] Comment on above: Result Comment: . Performed By: #### C UA2 #### [facility] [address] [place] [address] Nitrites,Urine Negative Normal Negative [facility] Comment on above: Result Comment: . Performed By: #### C UA2 #### [facility] [address] [place] [address] Occult Blood,Urine Negative Normal Negative [facility] Comment on above: Result Comment: . Performed By: #### C UA2 #### [facility] [address] [place] [address] pH,Urine 7.5 Normal 5.0-8.0 [facility] Comment on above: Result Comment: . Performed By: #### C UA2 #### [facility] [address] [place] [address] Specific [place],Urine < 1.005 Abnormal 1.005 - 1.030 [facility] Comment on above: Result Comment: . Performed By: #### C UA2 #### [facility] [address] [place] [address] Total Protein,Urine Negative Normal Negative [facility] Comment on above: Result Comment: . Performed By: #### C UA2 #### [facility] [address] [place] [address] Urobilinogen,Urine Normal Normal Normal (0-1) [facility] Comment on above: Result Comment: . Performed By: #### C UA2 #### [facility] [address] [place] [address] Comprehensive Metabolic [facility] 03-28-2022 Albumin [Mass/Vol] 4.5 g/dL 3.5 - 5.0 g/dL [facility] ALP (Bld) [Catalytic activity/Vol] 55 U/L 38 - 126 U/L [facility] ALT [Catalytic activity/Vol] 14 U/L 0 - 49 U/L [facility] Comment on above: The ALT test [...] - 1.25 mg/dL [facility] EGFR IF NonAfrican Lao >90.0 >60 mL/m in [facility] Comment on [...] fraction] 7.6 g/dL 6.3 - 8.2 g/dL [facility] GFR/1.73 sq M.predicted among blacks MDRD (S/P/Bld) [Vol rate/Area] mL/min/{1.73_m2} >60 mL/min [facility] Glucose [Mass/Vol] 87 mg/dL 70 - 100 mg/dL [facility] Interpretation and review of laboratory results Abnormal [facility] Potassium [Moles/Vol] 3.5 mmol/L 3.5 - 5.1 mmol/L [facility] Sodium [Moles/Vol] 140 mmol/L 135 - 145 mmol/L [facility] Urea nitrogen (BldV) [Mass/Vol] 7 mg/dL 7 - 17 mg/dL [facility] Hemogram w/ Autodiffon 03-28 Abs Baso Cnt 0.0 10*3/uL Normal 0.0-0.2 [facility] Comment on above: Performed By: #### H EMDF, LIPA4, CMP3 #### [facility] [address] [place] [address] Abs Neutrophile Cnt 5.1 10*3/uL Normal 1.8-7.0 [facility] Comment on above: Performed By: #### H EMDF, LIPA4, CMP3 #### [facility] [address] [place] [address] Basophils/100 WBC (Bld) 0.3 % Normal 0.0-2.0 S [facility] Comment on above: Performed By: #### H EMDF, LIPA4, CMP3 #### [facility] [address] [place] [address] Eosinophils (Bld) [#/Vol] 0.0 10*3/uL Normal 0.0-0.5 [facility] Comment on above: Performed By: #### H EMDF, LIPA4, CMP3 #### [facility] [address] [place] [address] Eosinophils/100 WBC (Bld) 0.3 % Low 1.0-6.0 [facility] Comment on above: Performed By: #### H EMDF, LIPA4, CMP3 #### [facility] [address] [place] [address] Erythrocyte distribution width (RBC) [Ratio] 11.8 % Normal 11.5-14.5 [facility] Comment on above: Performed By: #### H EMDF, LIPA4, CMP3 #### [facility] [address] [place] [address] Granulocytes/100 WBC (Bld) 73.8 % Normal 40.0-80.0 [facility] Comment on above: Performed By: #### H EMDF, LIPA4, CMP3 #### [facility] [address] [place] [address] Hematocrit (Bld) [Volume fraction] 42.4 % Normal 40.0-52.0 [facility] Comment on above: Performed By: #### H EMDF, LIPA4, CMP3 #### [facility] [address] [place] [address] Hemoglobin (Bld) [Mass/Vol] 15.4 g/dL Normal 13.0-18. 0 [facility] Comment on above: Performed By: #### H EMDF, LIPA4, CMP3 #### [facility] [address] [place] [address] Lymphocytes (Bld) [#/Vol] 1.3 10*3/uL Normal 1.0-4.3 [facility] Comment on above: Performed By: #### H EMDF, LIPA4, CMP3 #### [facility] [address] [place] [address] Lymphocytes/100 WBC (Bld) 18.2 % Low 20.0-40.0 [facility] Comment on above: Performed By: #### H EMDF, LIPA4, CMP3 #### [facility] [address] [place] [address] MCH (RBC) [Entitic mass] 32.5 pg Normal 26.0-34.0 [facility] Comment on above: Performed By: #### H EMDF, LIPA4, CMP3 #### [facility] [address] [place] [address] MCHC 36.3 % High 32.0-36.0 [facility] Comment on above: Performed By: #### H EMDF, LIPA4, CMP3 #### [facility] [address] [place] [address] MCV (RBC) [Entitic vol] 89.5 fL Normal 80.0-98.0 [facility] Comment on above: Performed By: #### H EMDF, LIPA4, CMP3 #### [facility] [address] [place] [address] Monocytes (Bld) [#/Vol] 0.5 10*3/uL Normal 0.0-0.8 [facility] Comment on above: Performed By: #### H EMDF, LIPA4, CMP3 #### [facility] [address] [place] [address] Monocytes/100 WBC (Bld) 7.1 % Normal 2.0-10.0 [facility] Comment on above: Performed By: #### H EMDF, LIPA4, CMP3 #### [facility] [address] [place] [address] Platelet mean volume (Bld) [Entitic vol] 10.1 fL Normal 7.4-12.4 [facility] Comment on above: Result Comment: MPV is a calculated measurement using platelet volume ratio. Performed By: #### H EMDF, LIPA4, CMP3 #### [facility] [address] [place] [address] Platelets (Bld) [#/Vol] 165 10*3/uL Normal 140-440 [facility] Comment on above: Performed By: #### H EMDF, LIPA4, CMP3 #### [facility] [address] [place] [address] RBC (Bld) [#/Vol] 4.74 10*6/uL Normal 4.40-5.90 [facility] Comment on above: Performed By: #### H EMDF, LIPA4, CMP3 #### [facility] [address] [place] [address] WBC (Bld) [#/Vol] 6.9 10*3/uL Normal 3.6-10.7 [facility] Comment on above: Performed By: #### H EMDF, LIPA4, CMP3 #### [facility] [address] [place] [address] Lipaseon 03-28-2022 Lipase [Catalytic activity/Vol] 44 U/L Normal 23-300 [facility] Comment on above: Performed By: #### H EMDF, LIPA4, CMP3 ####[facility] [place] [address] Lipase [Catalytic activity/Vol] 44 U/L 23 - 300 U/L [facility] No Panel Informationon 03-28 Test Performed by [facility], [address] , [place], [place] [address] [facility] Urinalysison 03-28-2022 Appearance (U) Clear Clear NA [facility] Comment on above: . Bilirubin Urine Negative Negative mg/dL [facility] Comment on above: . Color (U) COLORLESS Lt. Yellow NA [facility] Comment on above: . Glucose, Ur Normal Normal (<70) mg/dL [facility] Comment on above: . Interpretation and review of laboratory results Abnormal [facility] Ketones Ql (U) Negative Negative mg/dL [facility] Comment on above: . LEUKOCYTES, UA Negative Negative Analy/uL [facility] Comment on above: . Nitrite, Urine Negative Negative NA [facility] Comment on above: . Occult Blood,Urine Negative Negative mg/dL [facility] Comment on above: . pH (U) 7.5 [pH] [facility] Comment on above: . Specific [place], Urine <1.005 Abnormal S [facility] Comment on above: . Total Protein, Urine Negative Negativ e mg/dL [facility] Comment on above: . Urobilinogen, Urine Normal Normal (0-1) mg/dL [facility] Comment on above: . Test Performed by [facility], [address] , [place], [place] [id number] [place] [address] LAB [facility] UA DIP, URINE (POC)on 2021 BILIRUBIN UA (POCT) Negative Negative [facility] CLARITY UA (POCT) [facility] COLOR UA (POCT) Yellow [facility] GLUCOSE UA (POCT) Negative Negative mg/dL [facility] HEMOGLOBIN/BLOOD UA (POCT) Trace-lysed Abnormal Negative [facility] KETONE UA (POCT) Negative Negative mg/dL [facility] LEUKOCYTES UA (POCT) Negative Negative [facility] NITRITE UA (POCT) Negative Negative [facility] PH UA (POCT) 7.5 4.5 - 8.0 [facility] Protein Ql (U) Negative Negative mg/dL [facility] SPECIFIC GRAVITY UA (POCT) 1.015 1 .005 - 1.030 [facility] UROBILINOGEN UA (POCT) 0.2 E.U./dL Martha l E.U./dL [facility] Chlamydia and GC PCR Panelon 03-24-2022 [...] as suspected child abuse or molestation. Normal [facility] Comment on above: Performed By: #### C UA2 #### [facility] [place] [address] #### CTNGP #### [place] [address] [place], [place] Complete Urinalysison 2021 Appearance (U) Clear Normal Clear [facility] Comment on above: Result Comment: . Performed By: #### C UA2 #### [facility] [address] [place] [address] #### CTNGP #### [place] [address] [place], [place] Bilirubin,Urine Negative Normal Negative [facility] Comment on above: Result Comment: . Performed By: #### C UA2 #### [address] [place] [address] #### CTNGP #### [address] Color (U) COLORLESS Normal Lt. Yellow [facility] Comment on above: Result Comment: . Performed By: #### C UA2 #### [address] [place] [place] [address] #### CTNGP #### [address] Glucose Ql (U) Normal Normal Normal (<70) [facility] Comment on above: Result Comment: . Performed By: #### C UA2 #### [address] [place] [address] #### CTNGP #### [address] Ketone,Urine Negative Normal Negative [facility] Comment on above: Result Comment: . Performed By: #### C UA2 #### [facility] [address] [place] [address] #### CTNGP #### [address] Leukocytes,Urine Negative Normal Negative [facility] Comment on above: Result Comment: . Performed By: #### C UA2 #### [facility] [address] [place] [address] #### CTNGP #### [place] [address] [place] [address] Nitrites,Urine Negative Normal Negative [facility] Comment on above: Result Comment: . Performed By: #### C UA2 #### [address] [place] [address] #### CTNGP #### [place] [address] [place] [address] Occult Blood,Urine Negative Normal Negative [facility] Comment on above: Result Comment: . Performed By: #### C UA2 #### [address] [place] [address] #### CTNGP #### [place] [address] [place] [address] pH,Urine 7.5 Normal 5.0-8.0 [facility] Comment on above: Result Comment: . Performed By: #### C UA2 #### [address] [place] [address] #### CTNGP #### [place] [address] [place] [address] Specific [place],Urine < 1.005 Abnormal 1.005 - 1.030 [facility] Comment on above: Result Comment: . Performed By: #### C UA2 #### [address] [place] [address] #### CTNGP #### [place] [address] [place] [address] Total Protein,Urine Negative Normal Negative [facility] Comment on above: Result Comment: . Performed By: #### C UA2 #### [address] [place] [place] [address] #### CTNGP #### [place] [address] [place] [address] Urobilinogen,Urine Normal Normal Normal (0-1) [facility] Comment on above: Result Comment: . Performed By: #### C UA2 #### [address] [place] [address] #### CTNGP #### [facility] [address] [place] [address] UrinalysisOrdered By: Fausto Caruso on 03-23-2022 Appearance (U) Clear Clear NA [email or web address] Work Phone: Comment on above: . Bilirubin Urine Negative Negative mg/dL [email or web address] Work Phone: Comment on above: . Color (U) COLORLESS Lt. Yellow NA [email or web address] Work Phone: Comment on above: . Glucose, Ur Normal Normal (<70) mg/dL [email or web address] Work Phone: Comment on above: . Interpretation and review of laboratory results Abnormal [email or web address] Work Phone: Ketones Ql (U) Negative Negative mg/dL [email or web address] Work Phone: Comment on above: . LEUKOCYTES, UA Negative Negative Analy/uL [facility] Work Phone: Comment on above: . Nitrite, Urine Negative Negative NA [email or web address] Work Phone: Comment on above: . Occult Blood,Urine Negative Negative mg/dL [email or web address] Work Phone: Comment on above: . pH (U) 7.5 [pH] [facility] Work Phone: Comment on above: . Specific [place], Urine <1.005 Abnormal S [facility] Work Phone: Comment on above: . Total Protein, Urine Negative Negativ e mg/dL [email or web address] Work Phone: Comment on above: . Urobilinogen, Urine Normal Normal (0-1) mg/dL [email or web address] Work Phone: Comment on above: . [email or web address] Work Phone: Urinalysison 03-23-2022 Test Performed by [facility], [address] , [place], [place] [id number] [place] [address] LAB Chlamydia and GC PCR Panelon 06-15-2022 Chlamydia and GC PCR Panel Chlamydia trachomatis PCR --> Status: F NOT Detected Chlamydia trachomatis Nucleic Acid NOT Detected by DNA Amplification using the [employer] System. Culture is the only recommended test in medical-legal cases such as suspected child abuse or molestation. Chlamydia trachomatis Nucleic Acid NOT Detected by DNA Amplification using the [employer] System. Culture is the only recommended test in medical-legal cases such as suspected child abuse or molestation. Neisseria gonorrhoeae PCR --> Status: F NOT Detected Neisseria gonorrhoeae Nucleic Acid NOT Detected by DNA Amplification using the [employer] System. Culture is the only recommended test in medical-legal cases such as suspected child abuse or molestation. Neisseria gonorrhoeae Nucleic Acid NOT Detected by DNA Amplification using the [employer] System. Culture is the only recommended test in medical-legal cases such as suspected child abuse or molestation. Normal [facility] Comment on above: Performed By: #### C TNGP ####[facility] [place] [address] Complete Urinalysison 2021 Appearance (U) Clear Normal Clear [facility] Comment on above: Result Comment: . Performed By: #### C UA2 #### [facility] [address] [place] [address] Bilirubin,Urine Negative Normal Negative [facility] Comment on above: Result Comment: . Performed By: #### C UA2 #### [facility] [address] [place] [address] Color (U) LIGHT YELLOW Normal Lt. Yellow [facility] Comment on above: Result Comment: . Performed By: #### C UA2 #### [facility] [address] [place] [address] Glucose Ql (U) Normal Normal Normal (<70) [facility] Comment on above: Result Comment: . Performed By: #### C UA2 #### [facility] [address] [place] [address] Ketone,Urine Negative Normal Negative [facility] Comment on above: Result Comment: . Performed By: #### C UA2 #### [facility] [address] [place] [address] Leukocytes,Urine Negative Normal Negative [facility] Comment on above: Result Comment: . Performed By: #### C UA2 #### [facility] [address] [place] [address] Nitrites,Urine Negative Normal Negative [facility] Comment on above: Result Comment: . Performed By: #### C UA2 #### [facility] [address] [place] [address] Occult Blood,Urine Negative Normal Negative [facility] Comment on above: Result Comment: . Performed By: #### C UA2 #### [facility] [address] [place] [address] pH,Urine 6.0 Normal 5.0-8.0 [facility] Comment on above: Result Comment: . Performed By: #### C UA2 #### [address] [place] [address] Specific [place],Urine 1.009 Normal 1.005 - 1.030 [facility] Comment on above: Result Comment: . Performed By: #### C UA2 #### [address] [place] [address] Total Protein,Urine Negative Normal Negative [facility] Comment on above: Result Comment: . Performed By: #### C UA2 #### [address] [place] [address] Urobilinogen,Urine Normal Normal Normal (0-1) [facility] Comment on above: Result Comment: . Performed By: #### C UA2 #### [address] [place] [address] Urinalysison 03-17-2022 Appearance (U) Clear Clear NA [facility] Comment on above: . Bilirubin Urine [...] above: . Occult Blood,Urine Negative Negative mg/dL [facility] Comment on above: . pH (U) 6.0 [pH] [facility] Comment on above: . Specific [place], Urine 1.009 S [facility] Comment on above: . Total Protein, Urine Negative Negativ e mg/dL [facility] Comment on above: . Urobilinogen, Urine Normal Normal (0-1) mg/dL [facility] Comment on above: . Test Performed by [facility], [address] [place], [place] [address] , [address] LAB [facility] .Urinalysis Microscopic (AO) on 12-19-2021 UA Bacteria Trace Abnormal [facility] ([place]) Comment on above: Performed By: #### U AMICAO, UA #### [place] [id number] [place], [place] [address] UA RBC 0-5 Abnormal None Seen [facility] ([place]) Comment on above: Performed By: #### U AMICAO, UA #### [place] [place], [place] [address] UA Squam Epithelial None Seen Normal None Seen [facility] ([place]) Comment on above: Performed By: #### U AMICAO, UA #### [place] [id number] [place], [place] [address] UA WBC 0-5 Abnormal None Seen [facility] ([place] Comment on above: Performed By: #### U AMICAO, UA #### [facility] [address] [place], [place] [address] LABORATORYOrdered By: Modesto Tam on 12-19-2021 Appearance [...] SS UAon 12-19-2021 Color (U) Ruchi Normal [facility] ([place]) Comment on above: Performed By: #### U AMICAO, UA #### [address] [address] Glucose (U) [Mass/Vol] 100 mg/dL Abnormal Negative [facility] ([place]) Comment on above: Performed By: #### U AMICAO, UA #### [place] [place], [place] [address] Ketones Ql (U) Trace Abnormal Negative [facility] ([place]) Comment on above: Performed By: #### U AMICAO, UA #### [address] [address] UA Appear Clear Normal Clear [facility] ([place]) Comment on above: Performed By: #### U AMICAO, UA #### [address] [place] [address] UA Bili Small Abnormal Negative [facility] ([place]) Comment on above: Performed By: #### U AMICAO, UA #### [facility] [address] [address] UA Blood Trace Abnormal Negative [facility] ([place]) Comment on above: Performed By: #### U AMICAO, UA #### [facility] [address] [address] UA Leuk Est Negative Normal Negative [facility] ([place]) Comment on above: Performed By: #### U AMICAO, UA #### [facility] [place] [address] UA Nitrite Positive Abnormal Negative [facility] ([place]) Comment on above: Performed By: #### U AMICAO, UA #### [facility] [place] [id number] UA pH 5.0 Normal 5.0 - 8.0 [facility] ([place]) Comment on above: Performed By: #### U AMICAO, UA #### [address] [address] UA Protein Trace Normal Negative [facility] ([place]) Comment on above: Performed By: #### U AMICAO, UA #### [facility] [place] [id number] UA Spec Grav 1.025 Normal 1.015-1.025 [facility] ([place]) Comment on above: Performed By: #### U AMICAO, UA #### [facility] [address] [address] UA Specimen Type Clean Catch Normal [facility] ([place]) Comment on above: Performed By: #### U AMICAO, UA #### [facility] [address] [address] UA Urobilinogen 1.0 E.U./dL Normal 0.2-1.0 [facility] ([place]) Comment on above: Performed By: #### U AMICAO, UA #### [facility] [place] [address] CR Chest Portableon 12-16-19 22 CR Chest Portable Patient Name: GILBERTO JOHNSON Diagnostic Radiology ACCESSION EXAM DATE/TIME PROCEDURE ORDERING PROVIDER [id number] 12/15/2021 21:42 EDT CR Chest Portable HAYDEN IVAN CPT code 59576 Reason For Exam (CR Chest Portable) fever [...] Transcribed Date and Time: 12/15/2021 9:56 Normal [facility] Comp Metabolic Panelon 12-15 ALP [Catalytic activity/Vol] 63 U/L Normal 38-126 [facility] Comment on above: Performed By: #### C MP3, HEMDF #### [facility] [address] [place] [address] ALT [Catalytic activity/Vol] 15 U/L Normal 0-49 [facility] Comment on above: Result Comment: The ALT test is performed by an updated assay method. Please note that the reference intervals have been changed and are now sex specific. Performed By: #### C MP3, HEMDF #### [facility] [address] [place] [address] AST [Catalytic activity/Vol] 28 U/L Normal 15-46 [facility] Comment on above: Performed By: #### C MP3, HEMDF #### [facility] [address] [place] [address] Calcium [Mass/Vol] 9.6 mg/dL Normal 8.4-10.4 [facility] Comment on above: Performed By: #### C MP3, HEMDF #### [facility] [address] [place] [address] Glucose [Mass/Vol] 104 mg/dL High 70-100 [facility] Comment on above: Performed By: #### C MP3, HEMDF #### [facility] [address] [place] [address] Protein [Mass/Vol] 7.5 g/dL Normal 6.3-8.2 [facility] Comment on above: Performed By: #### C MP3, HEMDF #### [facility] [address] [place] [address] Urea nitrogen [Mass/Vol] 3 mg/dL Low 7-17 [facility] Comment on above: Performed By: #### C OLIVIA3, HEMDF #### [facility] [address] [place] [address] Anion gap [Moles/Vol] 8 mmol/L Normal 3-13 [facility] Comment on above: Performed By: #### C OLIVIA3, HEMDF #### [facility] [address] [place] [address] Bilirubin [Mass/Vol] 0.8 mg/dL Normal 0.2-1.3 [facility] Comment on above: Performed By: #### C OLIVIA3, HEMDF #### [facility] [address] [place] [address] CO2 [Moles/Vol] 27 mmol/L Normal 22-30 [facility] Comment on above: Performed By: #### C OLIVIA3, HEMDF #### [facility] [address] [place] [address] Creatinine [Mass/Vol] 0.83 mg/dL Normal 0.52-1.25 [facility] Comment on above: Performed By: #### C OLIVIA3, HEMDF #### [facility] [address] [place] [address] eGFR OTHER > 90.0 Normal >60 [facility] Comment on above: Result Comment: KDIG [...] Performed By: #### C MP3, HEMDF #### [facility] [address] [place] [address] GFR/1.73 sq M.predicted among blacks MDRD (S/P/Bld) [Vol rate/Area] mL/min/{1.73_m2} Normal >60 [facility] Comment on above: Performed By: #### C MP3, HEMDF #### [facility] [address] [place] [address] Albumin [Mass/Vol] 4.6 g/dL Normal 3.5-5.0 [facility] Comment on above: Performed By: #### C MP3, HEMDF #### [facility] [address] [place] [address] Chloride [Moles/Vol] 104 mmol/L Normal 98-107 [facility] Comment on above: Performed By: #### C MP3, HEMDF #### [facility] [address] [place] [address] Potassium [Moles/Vol] 3.9 mmol/L Normal 3.5-5.1 [facility] Comment on above: Performed By: #### C MP3, HEMDF #### [facility] [address] [place] [address] Sodium [Moles/Vol] 138 mmol/L Normal 135-145 [facility] Comment on above: Performed By: #### C MP3, HEMDF #### [facility] [address] [place] [address] Hemogram w/ Autodiffon 12-15 Abs Baso Cnt 0.0 10*3/uL Normal 0.0-0.2 [facility] Comment on above: Performed By: #### C MP3, HEMDF #### [facility] [address] [place] [address] Abs Neutrophile Cnt 3.3 10*3/uL Normal 1.8-7.0 [facility] Comment on above: Performed By: #### C MP3, HEMDF #### [facility] [address] [place] [address] Basophils/100 WBC (Bld) 0.7 % Normal 0.0-2.0 [facility] Comment on above: Performed By: #### C MP3, HEMDF #### [facility] [address] [place] [address] Eosinophils (Bld) [#/Vol] 0.0 10*3/uL Normal 0.0-0.5 [facility] Comment on above: Performed By: #### C MP3, HEMDF #### [facility] [address] [place] [address] Eosinophils/100 WBC (Bld) 0.3 % Low 1.0-6.0 [facility] Comment on above: Performed By: #### C MP3, HEMDF #### [facility] [address] [place] [address] Erythrocyte distribution width (RBC) [Ratio] 13.3 % Normal 11.5-14.5 [facility] Comment on above: Performed By: #### C MP3, HEMDF #### [facility] [address] [place] [address] Granulocytes/100 WBC (Bld) 62.9 % Normal 40.0-80.0 [facility] Comment on above: Performed By: #### C MP3, HEMDF #### [facility] [address] [place] [address] Hematocrit (Bld) [Volume fraction] 44.3 % Normal 40.0-52.0 [facility] Comment on above: Performed By: #### C MP3, HEMDF #### [facility] [address] [place] [address] Hemoglobin (Bld) [Mass/Vol] 15.6 g/dL Normal 13.0-18. 0 [facility] Comment on above: Performed By: #### C MP3, HEMDF #### [facility] [address] [place] [address] Lymphocytes (Bld) [#/Vol] 1.4 10*3/uL Normal 1.0-4.3 [facility] Comment on above: Performed By: #### C MP3, HEMDF #### [facility] [address] [place] [address] Lymphocytes/100 WBC (Bld) 26.9 % Normal 20.0-40.0 [facility] Comment on above: Performed By: #### C MP3, HEMDF #### [facility] [address] [place] [address] MCH (RBC) [Entitic mass] 31.4 pg Normal 26.0-34.0 [facility] Comment on above: Performed By: #### C MP3, HEMDF #### [facility] [address] [place] [address] MCHC 35.1 % Normal 32.0-36.0 [facility] Comment on above: Performed By: #### C MP3, HEMDF #### [facility] [address] [place] [address] MCV (RBC) [Entitic vol] 89.3 fL Normal 80.0-98.0 [facility] Comment on above: Performed By: #### C MP3, HEMDF #### [facility] [address] [place] [address] Monocytes (Bld) [#/Vol] 0.5 10*3/uL Normal 0.0-0.8 [facility] Comment on above: Performed By: #### C MP3, HEMDF #### [facility] [address] [place] [address] Monocytes/100 WBC (Bld) 9.2 % Normal 2.0-10.0 [facility] Comment on above: Performed By: #### C MP3, HEMDF #### [facility] [address] [place] [address] Platelet mean volume (Bld) [Entitic vol] 7.7 fL Normal 7.4-10.4 [facility] Comment on above: Performed By: #### C MP3, HEMDF #### [facility] [address] [place] [address] Platelets (Bld) [#/Vol] 218 10*3/uL Normal 140-440 [facility] Comment on above: Performed By: #### C MP3, HEMDF #### [facility] [address] [place] [address] RBC (Bld) [#/Vol] 4.96 10*6/uL Normal 4.40-5.90 [facility] Comment on above: Performed By: #### C MP3, HEMDF #### [facility] [address] [place] [address] WBC (Bld) [#/Vol] 5.2 10*3/uL Normal 3.6-10.7 [facility] Comment on above: Performed By: #### C MP3, HEMDF #### [facility] [address] [place] [address] CR Chest Portableon 08-16-20 21 CR Chest Portable Patient Name: GILBERTO JOHNSON Diagnostic Radiology ACCESSION EXAM DATE/TIME PROCEDURE ORDERING PROVIDER [id number] 08/16/2021 18:25 EST CR Chest Portable MD HARJIT, FLORECITA Haji CPT code 94884 Reason For Exam (CR Chest Portable) shortness [...] ALFRED Transcribed Date and Time: 08/16/2021 6:38 [facility] XR CHEST PORTABLEon 08-16-20 Patient Name: GILBERTO JOHNSON Diagnostic Radiology ACCESSION EXAM DATE/TIME PROCEDURE ORDERING PROVIDER [id number] 08/16/2021 18:25 EST CR Chest Portable MD LOMBARDI DAVID C. CPT code 96122 Reason For Exam (CR Chest Portable) shortness [...] ALFRED Transcribed Date and Time: 08/16/2021 6:38 [facility] Benny Olivo DO - 08/16/2021 Patient Name: GILBERTO JOHNSON Diagnostic Radiology ACCESSION EXAM DATE/TIME PROCEDURE ORDERING PROVIDER [id number] 08/16/2021 18:25 EST CR Chest Portable MD LOMBARDI DAVID C. CPT code 24949 Reason For Exam (CR Chest Portable) shortness [...] CHEST PORTABLEOrdered By: B[facility]16-[facility]: [facility] Note on 04-12-2017 [facility] Note Normal [facility] Patient Summary Documentson 04-10-2017 Patient Summary Documents Normal [facility] Patient Summary Documents Normal [facility] No Panel Information Influenza Types A,B Direct FA (JESS) [facility] Work Phone: Vital Signs Date Time Vital Sign Value Performing Clinician Facility 06-16-2025 00:05-0400 Body temperature 98.1 [degF] No Primary Care Physician [facility] 06-16-2025 00:05-0400 Diastolic blood pressure 98 mm[Hg] No Primary Care Physician [facility] 06-16-2025 00:05-0400 Heart rate 72 /min No Primary Care Physician [facility] 06-16-2025 00:05-0400 Respiratory rate 18 /min No Primary Care Physician [facility] 06-16-2025 00:05-0400 SaO2% (BldA) [Mass fraction] 98 % No Primary Care Physician [facility] 06-16-2025 00:05-0400 Systolic blood pressure 138 mm[Hg] No Primary Care Physician [facility] 06-15-2025 21:35-0400 Body height 172.72 cm No Primary Care Physician [facility] 06-15-2025 21:35-0400 Body mass index (BMI) [Ratio] 23.7 kg/m2 No Primary Care Physician [facility] 06-15-2025 21:35-0400 Body weight 70.85 kg No Primary Care Physician [facility] 04-27-2025 18:31-0400 Body mass index (BMI) [Ratio] 23.46 kg/m2 Emir Clutter PA-C Work Phone: [facility] 04-27-2025 18:31-0400 Body temperature 97.81 [degF] Emir Clutter PA-C Work Phone: [facility] 04-27-2025 18:31-0400 Body weight 70 kg Emir Clutter PA-C Work Phone: [facility] 04-27-2025 18:31-0400 Diastolic blood pressure 81 mm[Hg] Emir Clutter PA-C Work Phone: [facility] 04-27-2025 18:31-0400 Heart rate 83 /min Emir Clutter PA-C Work Phone: [facility] 04-27-2025 18:31-0400 Respiratory rate 18 /min Emir Clutter PA-C Work Phone: [facility] 04-27-2025 18:31-0400 SaO2% (BldA) [Mass fraction] 96 % Eimr Clutter PA-C Work Phone: [facility] 04-27-2025 18:31-0400 Systolic blood pressure 141 mm[Hg] Emir Clutter PA-C Work Phone: [facility] 04-05-2025 02:51-0400 Body temperature 98 [degF] No Primary Care Physician [facility] 04-05-2025 02:51-0400 Diastolic blood pressure 60 mm[Hg] No Primary Care Physician [facility] 04-05-2025 02:51-0400 Heart rate 72 /min No Primary Care Physician [facility] 04-05-2025 02:51-0400 Respiratory rate 16 /min No Primary Care Physician [facility] 04-05-2025 02:51-0400 SaO2% (BldA) [Mass fraction] 98 % No Primary Care Physician [facility] 04-05-2025 02:51-0400 Systolic blood pressure 132 mm[Hg] No Primary Care Physician [facility] 04-05-2025 01:14-0400 Body height 172.72 cm No Primary Care Physician [facility] 04-05-2025 01:14-0400 Body mass index (BMI) [Ratio] 23.4 kg/m2 No Primary Care Physician [facility] 04-05-2025 01:14-0400 Body weight 69.9 kg No Primary Care Physician [facility] 03-19-2025 01:41-0400 Body temperature 98 [degF] No Primary Care Physician [facility] 03-19-2025 01:41-0400 Diastolic blood pressure 81 mm[Hg] No Primary Care Physician [facility] 03-19-2025 01:41-0400 Heart rate 71 /min No Primary Care Physician [facility] 03-19-2025 01:41-0400 Respiratory rate 18 /min No Primary Care Physician [facility] 03-19-2025 01:41-0400 SaO2% (BldA) [Mass fraction] 100 % No Primary Care Physician [facility] 03-19-2025 01:41-0400 Systolic blood pressure 134 mm[Hg] No Primary Care Physician [facility] 03-19-2025 00:42-0400 Body height 173 cm No Primary Care Physician [facility] 03-19-2025 00:42-0400 Body mass index (BMI) [Ratio] 23.9 kg/m2 No Primary Care Physician [facility] 03-19-2025 00:42-0400 Body weight 71.6 kg No Primary Care Physician [facility] 12-14-2024 18:41-0400 Body mass index (BMI) [Ratio] 23.63 kg/m2 Alex Landers MD Work Phone: [facility] 12-14-2024 18:41-0400 Body temperature 97.9 [degF] Alex Landers MD Work Phone: [facility] 12-14-2024 18:41-0400 Body weight 70.5 kg Alex Landers MD Work Phone: [facility] 12-14-2024 18:41-0400 Diastolic blood pressure 74 mm[Hg] Alex Landers MD Work Phone: [facility] 12-14-2024 18:41-0400 Heart rate 101 /min Alex Landers MD Work Phone: [facility] 12-14-2024 18:41-0400 Respiratory rate 16 /min Alex Landers MD Work Phone: [facility] 12-14-2024 18:41-0400 SaO2% (BldA) [Mass fraction] 96 % Alex Landers MD Work Phone: [facility] 12-14-2024 18:41-0400 Systolic blood pressure 122 mm[Hg] Alex Landers MD Work Phone: [facility] 12-06-2024 12:34-0500 Body mass index (BMI) [Ratio] 22 kg/m2 No Primary Care Physician [facility] 12-06-2024 12:34-0500 Body temperature 97.6 [degF] No Primary Care Physician [facility] 12-06-2024 12:34-0500 Body weight 65.77 kg No Primary Care Physician [facility] 12-06-2024 12:34-0500 Diastolic blood pressure 95 mm[Hg] No Primary Care Physician [facility] 12-06-2024 12:34-0500 Heart rate 86 /min No Primary Care Physician [facility] 12-06-2024 12:34-0500 Respiratory rate 15 /min No Primary Care Physician [facility] 12-06-2024 12:34-0500 SaO2% (BldA) [Mass fraction] 97 % No Primary Care Physician [facility] 12-06-2024 12:34-0500 Systolic blood pressure 130 mm[Hg] No Primary Care Physician [facility] 12-25-2023 07:31-0400 Body temperature 97.4 [degF] [facility] 12-25-2023 07:31-0400 Diastolic blood pressure 83 mm[Hg] [facility] 12-25-2023 07:31-0400 Heart rate 79 /min [facility] 12-25-2023 07:31-0400 Respiratory rate 16 /min [facility] 12-25-2023 07:31-0400 SaO2% (BldA) [Mass fraction] 99 % [facility] 12-25-2023 07:31-0400 Systolic blood pressure 116 mm[Hg] [facility] 12-25-2023 03:45-0400 Body height 172.72 cm [facility] 12-25-2023 03:45-0400 Body mass index (BMI) [Ratio] 21.2 kg/m2 [facility] 12-25-2023 03:45-0400 Body weight 63.5 kg [facility] 11-19-2023 17:30-0500 Body temperature 97.81 [degF] Krislyn Aberegg PA Work Phone: [facility] 11-19-2023 17:30-0500 Body weight 71.22 kg Krislyn Aberegg PA Work Phone: [facility] 11-19-2023 17:30-0500 Diastolic blood pressure 88 mm[Hg] Krislyn Aberegg PA Work Phone: [facility] 11-19-2023 17:30-0500 Heart rate 111 /min Krislyn Aberegg PA Work Phone: [facility] 11-19-2023 17:30-0500 Respiratory rate 18 /min Krislyn Aberegg PA Work Phone: [facility] 11-19-2023 17:30-0500 SaO2% (BldA) [Mass fraction] 100 % Krislyn Aberegg PA Work Phone: [facility] 11-19-2023 17:30-0500 Systolic blood pressure 132 mm[Hg] Krislyn Aberegg PA Work Phone: [facility] 06-05-2023 18:03-0400 Body height 172.72 cm [facility] 06-05-2023 18:03-0400 Body mass index (BMI) [Ratio] 22.4 kg/m2 [facility] 06-05-2023 18:03-0400 Body temperature 97.1 [degF] [facility] 06-05-2023 18:03-0400 Body weight 66.85 kg [facility] 06-05-2023 18:03-0400 Diastolic blood pressure 115 mm[Hg] [facility] 06-05-2023 18:03-0400 Heart rate 96 /min [facility] 06-05-2023 18:03-0400 Respiratory rate 18 /min [facility] 06-05-2023 18:03-0400 SaO2% (BldA) [Mass fraction] 99 % [facility] 06-05-2023 18:03-0400 Systolic blood pressure 141 mm[Hg] [facility] 02-28-2023 19:52-0400 Body height 172.72 cm [facility] 02-28-2023 19:52-0400 Body mass index (BMI) [Ratio] 21.6 kg/m2 [facility] 02-28-2023 19:52-0400 Body temperature 98 [degF] [facility] 02-28-2023 19:52-0400 Body weight 64.45 kg [facility] 02-28-2023 19:52-0400 Diastolic blood pressure 94 mm[Hg] [facility] 02-28-2023 19:52-0400 Heart rate 92 /min [facility] 02-28-2023 19:52-0400 Respiratory rate 16 /min [facility] 02-28-2023 19:52-0400 SaO2% (BldA) [Mass fraction] 98 % [facility] 02-28-2023 19:52-0400 Systolic blood pressure 128 mm[Hg] [facility] 02-03-2023 06:40-0400 Diastolic blood pressure 77 mm[Hg] [facility] 02-03-2023 06:40-0400 Heart rate 62 /min [facility] 02-03-2023 06:40-0400 Respiratory rate 15 /min [facility] 02-03-2023 06:40-0400 SaO2% (BldA) [Mass fraction] 97 % [facility] 02-03-2023 06:40-0400 Systolic blood pressure 108 mm[Hg] [facility] 02-03-2023 06:11-0400 Body height 172.72 cm [facility] 02-03-2023 06:11-0400 Body temperature 99.4 [degF] [facility] 01-13-2023 06:11-0400 Body height 172.72 cm [facility] 01-13-2023 06:11-0400 Body mass index (BMI) [Ratio] 21.9 kg/m2 [facility] 01-13-2023 06:11-0400 Body temperature 98.5 [degF] [facility] 01-13-2023 06:11-0400 Body weight 65.5 kg [facility] 01-13-2023 06:11-0400 Diastolic blood pressure 74 mm[Hg] [facility] 01-13-2023 06:11-0400 Heart rate 74 /min [facility] 01-13-2023 06:11-0400 Respiratory rate 15 /min [facility] 01-13-2023 06:11-0400 SaO2% (BldA) [Mass fraction] 98 % [facility] 01-13-2023 06:11-0400 Systolic blood pressure 132 mm[Hg] [facility] 01-02-2023 21:09-0400 Body temperature 98.4 [degF] [facility] 01-02-2023 21:09-0400 Diastolic blood pressure 94 mm[Hg] [facility] 01-02-2023 21:09-0400 Heart rate 87 /min [facility] 01-02-2023 21:09-0400 Respiratory rate 18 /min [facility] 01-02-2023 21:09-0400 Systolic blood pressure 139 mm[Hg] [facility] 01-02-2023 21:05-0400 Body height 172.72 cm [facility] 01-02-2023 21:05-0400 Body mass index (BMI) [Ratio] 21.4 kg/m2 [facility] 01-02-2023 21:05-0400 Body weight 63.95 kg [facility] 01-02-2023 06:36-0400 Body height 172.72 cm [facility] 01-02-2023 06:36-0400 Body mass index (BMI) [Ratio] 21.7 kg/m2 [facility] 01-02-2023 06:36-0400 Body temperature 98.2 [degF] [facility] 01-02-2023 06:36-0400 Body weight 64.8 kg [facility] 01-02-2023 06:36-0400 Diastolic blood pressure 76 mm[Hg] [facility] 01-02-2023 06:36-0400 Heart rate 76 /min [facility] 01-02-2023 06:36-0400 Respiratory rate 17 /min [facility] 01-02-2023 06:36-0400 SaO2% (BldA) [Mass fraction] 98 % [facility] 01-02-2023 06:36-0400 Systolic blood pressure 141 mm[Hg] [facility] 12-31-2022 09:35-0400 Respiratory rate 16 /min [facility] 12-31-2022 08:55-0400 Body mass index (BMI) [Ratio] 20.3 kg/m2 [facility] 12-31-2022 08:55-0400 Body temperature 98 [degF] [facility] 12-31-2022 08:55-0400 Body weight 60.78 kg [facility] 12-31-2022 08:55-0400 Diastolic blood pressure 70 mm[Hg] [facility] 12-31-2022 08:55-0400 Heart rate 79 /min [facility] 12-31-2022 08:55-0400 SaO2% (BldA) [Mass fraction] 99 % [facility] 12-31-2022 08:55-0400 Systolic blood pressure 112 mm[Hg] [facility] 12-01-2022 21:38-0500 Diastolic blood pressure 63 mm[Hg] [facility] 12-01-2022 21:38-0500 Heart rate 64 /min [facility] 12-01-2022 21:38-0500 Systolic blood pressure 127 mm[Hg] [facility] 12-01-2022 20:44-0500 Body height 172.72 cm [facility] 12-01-2022 20:44-0500 Body mass index (BMI) [Ratio] 21.9 kg/m2 [facility] 12-01-2022 20:44-0500 Body temperature 99.3 [degF] [facility] 12-01-2022 20:44-0500 Body weight 65.4 kg [facility] 12-01-2022 20:44-0500 Respiratory rate 18 /min [facility] 12-01-2022 20:44-0500 SaO2% (BldA) [Mass fraction] 95 % [facility] 10-10-2022 22:52-0500 Diastolic blood pressure 90 mm[Hg] [facility] 10-10-2022 22:52-0500 Heart rate 98 /min [facility] 10-10-2022 22:52-0500 Respiratory rate 15 /min [facility] 10-10-2022 22:52-0500 SaO2% (BldA) [Mass fraction] 99 % [facility] 10-10-2022 22:52-0500 Systolic blood pressure 136 mm[Hg] [facility] 10-10-2022 21:07-0500 Body mass index (BMI) [Ratio] 21.2 kg/m2 [facility] 10-10-2022 21:07-0500 Body temperature 97 [degF] [facility] 10-10-2022 21:07-0500 Body weight 63.5 kg [facility] 10-02-2022 19:30-0500 Diastolic Blood Pressure Non-Invasive [address] MCKAYLA CARSON DO [facility] 10-02-2022 19:30-0500 Heart rate 112 /min DR MCKAYLA CARSON DO [facility] 10-02-2022 19:30-0500 Respiratory rate 18 /min DR MCKAYLA CARSON DO [facility] 10-02-2022 19:30-0500 Systolic Blood Pressure Non-Invasive [address] MCKAYLA CARSON DO [facility] 09-09-2022 13:19-0500 Body height 172.72 cm [facility] Work Phone: 09-09-2022 13:19-0500 Body mass index (BMI) [Ratio] 19 kg/m2 [facility] 09-09-2022 13:19-0500 Body temperature 97.6 [degF] [facility] 09-09-2022 13:19-0500 Body weight 56.69 kg [facility] 09-09-2022 13:19-0500 Diastolic blood pressure 88 mm[Hg] [facility] 09-09-2022 13:19-0500 Heart rate 98 /min [facility] 09-09-2022 13:19-0500 Respiratory rate 18 /min [facility] 09-09-2022 13:19-0500 SaO2% (BldA) [Mass fraction] 99 % [facility] 09-09-2022 13:19-0500 Systolic blood pressure 113 mm[Hg] [facility] 09-03-2022 17:27-0500 Respiratory rate 22 /min [facility] 09-03-2022 17:00-0500 Diastolic blood pressure 88 mm[Hg] [facility] 09-03-2022 17:00-0500 Systolic blood pressure 140 mm[Hg] [facility] 09-03-2022 12:40-0500 Body height 172.72 cm [facility] Work Phone: 09-03-2022 12:40-0500 Body mass index (BMI) [Ratio] 20.5 kg/m2 [facility] 09-03-2022 12:40-0500 Body temperature 100 [degF] [facility] 09-03-2022 12:40-0500 Body weight 61.23 kg [facility] 09-03-2022 12:40-0500 Heart rate 117 /min [facility] 09-03-2022 12:40-0500 SaO2% (BldA) [Mass fraction] 100 % [facility] 08-20-2022 11:21-0500 Body height 172.72 cm [facility] Work Phone: 08-20-2022 11:21-0500 Body mass index (BMI) [Ratio] 19.8 kg/m2 [facility] 08-20-2022 11:21-0500 Body temperature 96.5 [degF] [facility] 08-20-2022 11:21-0500 Body weight 58.96 kg [facility] 08-20-2022 11:21-0500 Diastolic blood pressure 92 mm[Hg] [facility] 08-20-2022 11:21-0500 Heart rate 102 /min [facility] 08-20-2022 11:21-0500 Respiratory rate 18 /min [facility] 08-20-2022 11:21-0500 SaO2% (BldA) [Mass fraction] 99 % [facility] 08-20-2022 11:21-0500 Systolic blood pressure 130 mm[Hg] [facility] 07-30-2022 14:56-0400 Body mass index (BMI) [Ratio] 20.7 kg/m2 [facility] Work Phone: 07-30-2022 14:56-0400 Body temperature 98.2 [degF] [facility] Work Phone: 07-30-2022 14:56-0400 Body weight 61.7 kg [facility] Work Phone: 07-30-2022 14:56-0400 Diastolic blood pressure 82 mm[Hg] [facility] Work Phone: 07-30-2022 14:56-0400 Heart rate 98 /min [facility] Work Phone: 07-30-2022 14:56-0400 Respiratory rate 16 /min [facility] Work Phone: 07-30-2022 14:56-0400 SaO2% (BldA) [Mass fraction] 100 % [facility] Work Phone: 07-30-2022 14:56-0400 Systolic blood pressure 113 mm[Hg] [facility] Work Phone: 07-30-2022 03:00-0400 Heart rate 77 /min [facility] Work Phone: 07-30-2022 03:00-0400 Respiratory rate 15 /min [facility] Work Phone: 07-30-2022 03:00-0400 SaO2% (BldA) [Mass fraction] 99 % [facility] Work Phone: 07-30-2022 01:10-0400 Diastolic blood pressure 79 mm[Hg] [facility] Work Phone: 07-30-2022 01:10-0400 Systolic blood pressure 129 mm[Hg] [facility] Work Phone: 07-29-2022 21:11-0400 Body height 172.72 cm [facility] Work Phone: 07-29-2022 21:11-0400 Body mass index (BMI) [Ratio] 19.8 kg/m2 [facility] Work Phone: 07-29-2022 21:11-0400 Body temperature 97.6 [degF] [facility] Work Phone: 07-29-2022 21:11-0400 Body weight 58.96 kg [facility] Work Phone: 06-17-2022 20:24-0400 Body height 172.72 cm [facility] Work Phone: 06-17-2022 20:24-0400 Body mass index (BMI) [Ratio] 20.5 kg/m2 [facility] Work Phone: 06-17-2022 20:24-0400 Body temperature 98.4 [degF] [facility] Work Phone: 06-17-2022 20:24-0400 Body weight 61.23 kg [facility] Work Phone: 06-17-2022 20:24-0400 Diastolic blood pressure 73 mm[Hg] [facility] Work Phone: 06-17-2022 20:24-0400 Heart rate 95 /min [facility] Work Phone: 06-17-2022 20:24-0400 Respiratory rate 16 /min [facility] Work Phone: 06-17-2022 20:24-0400 SaO2% (BldA) [Mass fraction] 92 % [facility] Work Phone: 06-17-2022 20:24-0400 Systolic blood pressure 129 mm[Hg] [facility] Work Phone: 05-02-2022 02:30-0400 Body height 172.7 cm Emir Figueredo MD Work Phone: [facility] 05-02-2022 02:30-0400 Body mass index (BMI) [Ratio] 22.05 kg/m2 Emir Figueredo MD Work Phone: [facility] 05-02-2022 02:30-0400 Body temperature 98.29 [degF] Emir Figueredo MD Work Phone: [facility] 05-02-2022 02:30-0400 Body weight 65.77 kg Emir Figueredo MD Work Phone: [facility] 05-02-2022 02:30-0400 Diastolic blood pressure 82 mm[Hg] Emir Figueredo MD Work Phone: [facility] 05-02-2022 02:30-0400 Heart rate 114 /min Emir Figueredo MD Work Phone: [facility] 05-02-2022 02:30-0400 Respiratory rate 16 /min Emir Figueredo MD Work Phone: [facility] 05-02-2022 02:30-0400 SaO2% (BldA) [Mass fraction] 97 % Emir Figueredo MD Work Phone: [facility] 05-02-2022 02:30-0400 Systolic blood pressure 123 mm[Hg] Emir Figueredo MD Work Phone: [facility] 03-28-2022 17:11-0400 Diastolic blood pressure 79 mm[Hg] Bassem Elena MD Work Phone: [facility] [facility]-28-2022 17:11-0400 Heart rate 80 /min Bassem Elena MD Work Phone: [facility] 03-28-2022 17:11-0400 Respiratory rate 14 /min Bassem Elena MD Work Phone: [facility] 03-28-2022 17:11-0400 SaO2% (BldA) [Mass fraction] 100 % Bassem Elena MD Work Phone: [facility] 03-28-2022 [id number] Systolic blood pressure 132 mm[Hg] Bassem Elena MD Work Phone: [facility] 03-28-2022 14:05-0400 Body height 172.7 cm Bassem Elena MD Work Phone: [facility] 03-28-2022 14:05-0400 Body mass index (BMI) [Ratio] 20.53 kg/m2 Bassem Elena MD Work Phone: [facility] 03-28-2022 14:05-0400 Body temperature 98.4 [degF] Bassem Elena MD Work Phone: [facility] 03-28-2022 14:05-0400 Body weight 61.24 kg Bassem Elena MD Work Phone: [facility] 03-27-2022 15:10-0400 Body height 172.7 cm Kevin Gill PA-C Work Phone: [facility] 03-27-2022 15:10-0400 Body temperature 98.6 [degF] Kevin Gill PA-C Work Phone: [facility] 03-27-2022 15:10-0400 Body weight 63.96 kg Kevin Gill PA-C Work Phone: [facility] 03-27-2022 15:10-0400 Diastolic blood pressure 88 mm[Hg] Kevin Gill PA-C Work Phone: [facility] 03-27-2022 15:10-0400 Heart rate 106 /min Kevin Glil PA-C Work Phone: [facility] 03-27-2022 15:10-0400 Respiratory rate 16 /min Kevin Gill PA-C Work Phone: [facility] 03-27-2022 15:10-0400 SaO2% (BldA) [Mass fraction] 96 % Kevin Gill PA-C Work Phone: [facility] 03-27-2022 15:10-0400 Systolic blood pressure 110 mm[Hg] Kevin Gill PA-C Work Phone: [facility] 03-23-2022 19:39-0400 Body height 172.7 cm Florecita Caruso MD Work Phone: [facility] 03-23-2022 19:39-0400 Body mass index (BMI) [Ratio] 20.53 kg/m2 Florecita Caruso MD Work Phone: [facility] 03-23-2022 19:39-0400 Body temperature 98.8 [degF] Florecita Caruso MD Work Phone: [facility] 03-23-2022 19:39-0400 Body weight 61.24 kg Florecita Caruso MD Work Phone: [facility] 03-23-2022 19:39-0400 Diastolic blood pressure 79 mm[Hg] Florecita Caruso MD Work Phone: [facility] 03-23-2022 19:39-0400 Heart rate 94 /min Florecita Caruso MD Work Phone: [facility] 03-23-2022 19:39-0400 Respiratory rate 18 /min Florecita Caruso MD Work Phone: [facility] 03-23-2022 19:39-0400 SaO2% (BldA) [Mass fraction] 99 % Florecita Caruso MD Work Phone: [facility] 03-23-2022 19:39-0400 Systolic blood pressure 123 mm[Hg] Florecita Caruso MD Work Phone: [facility] 03-17-2022 19:10-0400 Body temperature 98.2 [degF] Wally Burleson MD Work Phone: [facility] 03-17-2022 19:10-0400 Diastolic blood pressure 82 mm[Hg] Wally Burleson MD Work Phone: [facility] 03-17-2022 19:10-0400 Heart rate 96 /min Wally Burleson MD Work Phone: [facility] 03-17-2022 19:10-0400 Respiratory rate 18 /min Wally Burleson MD Work Phone: [facility] 03-17-2022 19:10-0400 SaO2% (BldA) [Mass fraction] 99 % Wally Burleson MD Work Phone: [facility] 03-17-2022 19:10-0400 Systolic blood pressure 131 mm[Hg] Wally Burleson MD Work Phone: [facility] 02-16-2022 20:02-0400 Body temperature 97.9 [degF] Lynn Brenda DO Work Phone: [facility] 02-16-2022 20:02-0400 Diastolic blood pressure 88 mm[Hg] Lynn Brenda DO Work Phone: [facility] 02-16-2022 20:02-0400 Heart rate 98 /min Lynn Brenda DO Work Phone: [facility] 02-16-2022 20:02-0400 Respiratory rate 18 /min Lynn Brenda DO Work Phone: [facility] 02-16-2022 20:02-0400 SaO2% (BldA) [Mass fraction] 97 % Lynn Brenda DO Work Phone: [facility] 02-16-2022 20:02-0400 Systolic blood pressure 122 mm[Hg] Lynn Brenda DO Work Phone: [facility] 12-19-2021 09:29-0400 Body temperature 98.78 [degF] JENNIFER VALLES MD [facility] 12-19-2021 09:29-0400 Body weight 65.8 kg JENNIFER VALLES MD [facility] 12-19-2021 09:29-0400 Diastolic blood pressure 75 mm[Hg] JENNIFER VALLES MD [facility] 12-19-2021 09:29-0400 Heart rate 97 /min JENNIFER VALLES MD [facility] 12-19-2021 09:29-0400 Respiratory rate 16 /min JENNIFER VALLES MD [facility] 12-19-2021 09:29-0400 Systolic blood pressure 142 mm[Hg] JENNIFER VALLES MD [facility] 12-16-2021 22:42-0400 Body height 172.7 cm Wally Burleson MD Work Phone: [facility] 12-16-2021 22:42-0400 Body mass index (BMI) [Ratio] 21.13 kg/m2 Wally Burleson MD Work Phone: [facility] 12-16-2021 22:42-0400 Body temperature 98.1 [degF] Wally Burleson MD Work Phone: [facility] 12-16-2021 22:42-0400 Body weight 63.05 kg Wally Burleson MD Work Phone: [facility] 12-16-2021 22:42-0400 Diastolic blood pressure 95 mm[Hg] Wally Burleson MD Work Phone: [facility] 12-16-2021 22:42-0400 Heart rate 97 /min Wally Burleson MD Work Phone: [facility] 12-16-2021 22:42-0400 Respiratory rate 18 /min Wally Burleson MD Work Phone: [facility] 12-16-2021 22:42-0400 SaO2% (BldA) [Mass fraction] 98 % Wally Burleson MD Work Phone: [facility] 12-16-2021 22:42-0400 Systolic blood pressure 140 mm[Hg] Wally Burleson MD Work Phone: [facility] 10-04-2021 19:16-0500 Body height 172.7 cm Tereso Kuo MD Work Phone: [facility] 10-04-2021 19:16-0500 Body mass index (BMI) [Ratio] 22.5 kg/m2 Tereso Kuo MD Work Phone: [facility] 10-04-2021 19:16-0500 Body temperature 99.1 [degF] Tereso Kuo MD Work Phone: [facility] 10-04-2021 19:16-0500 Body weight 67.13 kg Tereso Kuo MD Work Phone: [facility] 10-04-2021 19:16-0500 Diastolic blood pressure 86 mm[Hg] Tereso Kuo MD Work Phone: [facility] 10-04-2021 19:16-0500 Heart rate 92 /min Tereso Kuo MD Work Phone: [facility] 10-04-2021 19:16-0500 Respiratory rate 16 /min Tereso Kuo MD Work Phone: [facility] 10-04-2021 19:16-0500 SaO2% (BldA) [Mass fraction] 96 % Tereso Kuo MD Work Phone: [facility] 10-04-2021 19:16-0500 Systolic blood pressure 110 mm[Hg] Tereso Kuo MD Work Phone: [facility] 08-16-2021 19:03-0500 Diastolic blood pressure 84 mm[Hg] Florecita Lombardi MD Work Phone: [facility] 08-16-2021 19:03-0500 Heart rate 84 /min Florecita Lombardi MD Work Phone: [facility] 08-16-2021 19:03-0500 Respiratory rate 18 /min Florecita Lombardi MD Work Phone: [facility] 08-16-2021 19:03-0500 SaO2% (BldA) [Mass fraction] 97 % Florecita Lombardi MD Work Phone: [facility] 08-16-2021 19:03-0500 Systolic blood pressure 127 mm[Hg] Florecita Lombardi MD Work Phone: [facility] 08-16-2021 18:07-0500 Body height 172.7 cm Florecita Lombardi MD Work Phone: [facility] 08-16-2021 18:07-0500 Body mass index (BMI) [Ratio] 20.53 kg/m2 Florecita Lombardi MD Work Phone: [facility] 08-16-2021 18:07-0500 Body temperature 99.7 [degF] Florecita Lombardi MD Work Phone: [facility] 08-16-2021 18:07-0500 Body weight 61.24 kg Florecita Lombardi MD Work Phone: [facility] Encounters Encounter Date Encounter Type Care Provider Facility Start: 06-15-2025 End: 06-16-2025 Emergency department patient visit No Primary Care Physician -Emergency Department Work Phone: Start: 04-27-2025 End: 04-27-2025 Office outpatient visit 25 minutes Emir Simons PA-C Work Phone: [facility] Comment on above: Acute non-recurrent sinusitis, unspecified location (Primary Dx) Start: 04-27-2025 End: 04-27-2025 ambulatory DALTON ART Facility:[facility] Start: 04-05-2025 End: 04-05-2025 Emergency department patient visit No Primary Care Physician -Emergency Department Work Phone: Start: 03-19-2025 End: 03-19-2025 Emergency department patient visit No Primary Care Physician -Emergency Department Work Phone: Start: 12-14-2024 End: 12-14-2024 ambulatory DALTON ART Facility:[facility] Start: 12-14-2024 End: 12-14-2024 Office outpatient visit 15 minutes Alex Landers MD Work Phone: [facility] Comment on above: Post-nasal drainage (Primary Dx) Start: 12-06-2024 End: 12-06-2024 Emergency department patient visit Dr. Marco Antonio Cintron MD -Emergency Department Work Phone: Start: 10-13-2024 End: 10-13-2024 Emergency department patient visit Antwan Vilma Facility:[facility] Start: 09-19-2024 End: 09-19-2024 Emergency department patient visit [facility] Facility:[facility] Start: 09-11-2024 End: 09-11-2024 Emergency department patient visit No Primary Care Physician Facility:[facility] Start: 08-20-2024 End: 08-20-2024 Emergency department patient visit Alan Kel Facility:[facility] Start: 07-04-2024 End: 07-04-2024 Emergency department patient visit Nolan Brady Facility:[facility] Start: 12-25-2023 End: 12-25-2023 Emergency department patient visit [facility] Work Phone: Start: 11-19-2023 End: 11-19-2023 Patient encounter procedure Travis KLEIN Work Phone: [facility] Comment on above: Mouth sore (Primary Dx); Bacterial sinusitis Start: 06-05-2023 End: 06-05-2023 Emergency department patient visit [facility] Work Phone: Start: 02-28-2023 End: 02-28-2023 Emergency department patient visit [facility] Start: 02-03-2023 End: 02-03-2023 Emergency department patient visit [facility] Start: 01-13-2023 End: 01-13-2023 Emergency department patient visit [facility] Start: 01-02-2023 End: 01-03-2023 Emergency department patient visit [facility] Start: 01-02-2023 End: 01-02-2023 Emergency department patient visit [facility] Start: 12-31-2022 End: 12-31-2022 Emergency department patient visit [facility] Start: 12-01-2022 End: 12-01-2022 Emergency department patient visit [facility] Start: 10-10-2022 End: 10-10-2022 Emergency department patient visit [facility] Start: 10-02-2022 End: 10-02-2022 Emergency department patient visit DR. MCKAYLA CARSON DO Facility:[facility] Start: 10-02-2022 End: 10-02-2022 Emergency department patient visit DR MCKAYLA CARSON DO [facility] Start: 09-09-2022 End: 09-09-2022 Emergency department patient visit [facility] Start: 09-03-2022 End: 09-03-2022 Emergency department patient visit [facility] Start: 08-20-2022 End: 08-20-2022 Emergency department patient visit [facility] Start: 07-30-2022 End: 07-30-2022 Emergency department patient visit [facility] Start: 07-29-2022 End: 07-30-2022 Emergency department patient visit [facility] Start: 06-30-2022 Telephone encounter Kevin rivero PA-C Work Phone: [facility] Comment on above: [employer] - [employer] Start: 06-17-2022 End: 06-17-2022 Emergency department patient visit [facility] Start: 05-02-2022 End: 05-02-2022 Emergency department patient visit Emir Figueredo MD Work Phone: [facility] Comment on above: Acute cystitis with hematuria (Primary Dx) Start: 03-30-2022 End: 03-31-[address] NEVAEH FRAGA MD. Facility:[facility] Start: 03-30-2022 End: 03-30-[address] NEVAEH FRAGA MD [facility] Start: 03-30-2022 Telephone encounter Kevin rivero PA-C Work Phone: Urology Comment on above: Results Start: 03-28-2022 End: 03-28-2022 Emergency department patient visit Bassem Elena MD Work Phone: [facility] Comment on above: Abnormal laboratory test (Primary Dx); Anxiety state Start: 03-27-2022 End: 03-27-2022 Patient encounter procedure Kevin Gill PA-C Work Phone: Urology Comment on above: Dysuria (Primary Dx) Start: 03-25-2022 Telephone encounter Kevin rivero PA-C Work Phone: Urology Comment on above: Received Outside Med ical Records Start: 03-23-2022 End: 03-23-2022 Emergency department patient visit Florecita Caruso MD Work Phone: [facility] Comment on above: Dysuria (Primary Dx) ; Anxiety state Start: 03-17-2022 End: 03-17-2022 Emergency department patient visit Wally Burleson MD Work Phone: [facility] Comment on above: Dysuria (Primary Dx) Start: 02-16-2022 End: 02-16-2022 Emergency department patient visit Lynn Gutierrez DO Work Phone: [facility] Comment on above: Seasonal allergic rh initis due to pollen (Primary Dx) Start: 02-11-[address] NEVAEH FRAGA MD. Facility:[facility] Start: 02-03-[address] NEVAEH FRAGA MD. Facility:[facility] Start: 12-19-2021 End: 12-19-2021 Emergency department patient visit DR. NEVAEH FRAGA MD. Facility:[facility] Start: 12-19-2021 End: 12-19-2021 Emergency department patient visit JENNIFER VALLES MD [facility] Start: 12-16-2021 End: 12-16-2021 Emergency department patient visit Wally Burleson MD Work Phone: [facility] Comment on above: Anxiety state (Prima ry Dx) Start: 10-04-2021 End: 10-04-2021 Emergency department patient visit Tereso Kuo MD Work Phone: [facility] Comment on above: Acute nonintractable headache, unspecified headache type (Primary Dx) Start: 08-16-2021 End: 08-16-2021 Emergency department patient visit Florecita Lombardi MD Work Phone: [facility] Comment on above: Bronchitis (Primary Dx) Start: 04-10-2017 End: 04-11-2017 Emergency department patient visit REBEL W EDGAR Facility:[facility] Start: 04-09-2017 End: 04-10-2017 Emergency department patient visit MILE SANCHEZ Facility:[facility] Start: 01-07-2017 End: 01-07-2017 Patient encounter procedure JOSSY MURILLO Facility:[facility] Procedures Date Procedure Procedure Detail Performing Clinician [...] P,Tdap,Td Vaccine (8 - Td or Tdap) [facility] Start: 05-22-2026 DTaP/Tdap/Td vaccine (2 - Td or Tdap) DTaP/Tdap/Td vaccine (2 - Td or Tdap) [facility] Start: 05-22-2026 Urine microalbumin profile DTa P,Tdap,Td Vaccine (7 - Td or Tdap) [facility] Start: 06-15-2025 [facility] Start: 06-04-2025 Influenza vaccination Influenz a Vaccine (#1) [facility] Start: 04-05-2025 End: 04-05-[address] [facility] Start: 03-19-2025 End: 03-19-[address] [facility] Start: 12-06-2024 [facility] Start: 10-04-2024 Medicare Advantage A nnual Wellness Visit Medicare Advantage Annual Wellness Visit [facility] Start: 06-04-2024 Covid-19 Vaccine () Covid-19 Vaccine () [facility] Start: 06-04-2024 Influenza vaccination Influenz a Vaccine (#1) [facility] Start: 12-25-2023 End: 12-25-[address] [facility] Start: 10-04-2023 Depression Assessment Depression Ass essment [facility] Start: 06-05-2023 [facility] Start: 01-02-2023 Emergency department visit low/moder severity EMERGENCY DEPT VISIT SF MDM [facility] Start: 2022 Lipid panel Lipid Screening [facility] Start: 06-04-2022 Influenza vaccination S [facility] Start: 10-04-2021 DEPRESSION ASSESSMENT DEPRESSION ASS ESSMENT [facility] Start: 06-04-2021 Influenza vaccination Flu vaccine (# 1) [facility] Start: 2006 Urine microalbumin profile DTA P,TDAP,TD (1 - Tdap) [facility] Start: 2005 Anxiety Screening Anxiety Screening [facility] Start: 2005 Depression Screening Depression Scre [facility] Start: 2005 HEPATITIS C SCREENING HEPATITIS C [facility] Start: 2005 Hepatitis C screening Hepatitis C [facility] Start: 2005 [address] HIV SCREEN[address] [facility] Start: 2005 HIV screening HIV Screening [facility] Start: 08-18-2000 Hepatitis B Vaccine (2 of 3 - 3-dose series) Hepatitis B Vaccine (2 of 3 - 3-dose series) [facility] Start: 1999 Adult depression scr eening assessment DEPRESSION SCREENING [facility] Start: 1999 COVID-19 Vaccine (1) COVID-19 Vaccin e (1) [facility] Start: 1992 COVID-19 VACCINE (#1) COVID-19 VACCI NE (#1) [facility] Start: 1992 COVID-19 Vaccine (1) COVID-19 Vaccin e (1) [facility] Start: 01-09-1988 COVID-19 Vaccine (#1) COVID-19 Vacci ne (#1) [facility] Start: 1987 HEPATITIS B (1 of 3 - 3-dose series) HEPATITIS B (1 of 3 - 3-dose series) [facility] Bacteria identified in Urine by Culture URINE CULTURE Microbiology Routine Dysuria 03/27/2022 3:49 PM EDT [facility] Work Phone: End: 03-17-2022 C. Trachomatis / [...] rences starting 05/02/2022 until 05/02/2022 [facility]sc[facility] Work Phone: Organism count, micr oscopic method [facility] Work Phone: Patient Education [facility] Work Phone: Patient referral [facility] Work Phone: Streptococcus pyogen es Ag [Presence] in Throat by Immunofluorescence [facility] Work Phone: Urinalysis, blood, qualitative [facility] Work Phone: Urine microscopy: ep ithelial cells [facility] Work Phone: White blood cell count [facility] Work Phone: [facility] Immunizations Immunization Date Immunization Notes [facility] Provider [facility]-05-2025 tetanus toxoid, redu jerrell diphtheria toxoid, and acellular pertussis vaccine, adsorbed No Primary Care Physician [facility] 07-13-2023 influenza virus vacc ine, unspecified formulation Alex Landers MD Work Phone: [facility] 08-23-2020 influenza virus vacc ine, unspecified formulation JENNIFER VALLES MD [facility] 08-15-2020 influenza virus vacc ine, unspecified formulation JENNIFER VALLES MD [facility] 07-29-2019 influenza virus vacc ine, unspecified formulation JENNIFER VALLES MD [facility] 07-11-2018 influenza virus vacc ine, unspecified formulation JENNIFER VALLES MD [facility] 07-04-2018 influenza virus vacc ine, unspecified formulation JENNIFER VALLES MD [facility] 07-01-2017 influenza virus vacc ine, unspecified formulation JENNIFER VALLES MD [facility] 05-22-2016 tetanus toxoid, redu jerrell diphtheria toxoid, and acellular pertussis vaccine, adsorbed JENNIFER VALLES MD [facility] 07-20-2014 influenza virus vacc ine, unspecified formulation JENNIFER VALLES MD [facility] 07-20-2014 influenza, seasonal, injectable Kevin Gill PA-C Work Phone: [facility] 07-20-2014 pneumococcal polysaccharide vaccine, 23 valent JENNIFER VALLES MD [facility] 07-21-2000 hepatitis B pediatri c vaccine JENNIFER VALLES MD [facility] 07-21-2000 measles/mumps/rubell a virus vaccine JENNIFER VALLES MD [facility] 10-16-1988 measles/mumps/rubell a virus vaccine JENNIFER VALLES MD [facility] Payers Date Payer Category Payer Self-pay [id number] 2024 [facility] [id number] 2023 Medicare (Managed Care) [employer] [id number] 2016 Medicaid [employer] [facility] MEDICAID [id number] 2016-Present [phone] [address] [place] [address] Medicaid [id number] 2016 Medicaid [id number] 2015 Unknown [id number] 1987 Unknown [id number] 732 1987 Unknown [id number]. 627 1987 Unknown [id number]. 627 1987 Unknown [id number]. 627 1987 Unknown [id number]. 627 1987 Unknown [id number]. 627 Unknown [id number]. 462 Unknown [id number] 462 Unknown [id number]. 462 Unknown [id number]. 462 Unknown [id number]. 462 Unknown [id number]. 462 Unknown [id number] 462 Unknown [id number]. 462 Unknown [id number] 462 Social History Date Type Detail Facility Start: 10-04-2016 Tobacco smoking stat [facility] Occasional tobacco smoker [email or web address] Work Phone: Start: 10-04-2016 End: 04-27-2025 Tobacco use and exposure User of smokeless tobacco [employer] Phone: Start: 08-16-2021 End: 04-27-2025 Alcohol intake Current drinker of alcohol (finding) [employer] Phone: Start: 10-04-2016 History SDOH Alcohol Comment socially [employer] Phone: Start: 1985 Sex Assigned At Not on file [employer] Work Phone: Start: 02-06-2022 End: 05-02-2022 Exposure to SARS-CoV-2 (event) Not sure [email or web address] Start: 12-15-2021 End: 04-27-2025 Tobacco smoking status NHIS Ex-smoker [email or web address] Start: 12-16-2021 End: 05-02-2022 Alcohol intake Ex-drinker (finding) [employer] Phone: Start: 08-15-2018 End: 12-25-2023 Tobacco smoking consumption unknown (finding) [facility] Smokeless tobacc o user within last 30 days [facility] Sex Assigned At [facility] History of tobacco use Chews Tobacco [facility] Work Phone: Start: 08-20-2015 End: 04-27-2025 Cigarettes smoked current (pack per day) - Reported 0.3 [facility] History of tobacco use Snuff User [facility] Start: 07-20-2014 History SDOH Alcohol Comment occasional [facility] Start: 06-17-2015 End: 11-19-2023 Tobacco Comment vapor cigarettes [facility] History of tobacco use Current smoker [facility] Work Phone: Start: 04-15-2020 None [facility] Start: 12-01-2015 Alone [facility] Start: 1985 Sex Assigned At Male [facility] History of tobacco use Cigarette Smoker C [facility] Start: 11-19-2023 End: 04-27-2025 Tobacco use panel [facility] Start: 03-19-2025 End: 06-16-2025 Tobacco smoking status NHIS Smokes tobacco daily (finding) [facility] Functional Status Date Assessment Result Facility 10-02-2022 Functional Status Room check performed [facility] 04-23-2015 Are you deaf, or do you have serious difficulty hearing No 04/23/2015 7:35 PM EDT Flores Navarro LPN No [facility] 04-23-2015 Are you blind, or do you have serious difficulty seeing, even when wearing glasses No 04/23/2015 7:35 PM EDT Flores Navarro LPN No [facility] 04-23-2015 Do you have serious difficulty walking or climbing stairs No 04/23/2015 7:35 PM EDT Flores Navarro LPN No [facility] 04-23-2015 Do you have difficul ty dressing or bathing No 04/23/2015 7:35 PM EDT Flores Navarro LPN No [facility] 04-23-2015 Because of a physica l, mental, or emotional condition, do you have difficulty doing errands alone such as visiting a physician's office or shopping No 04/23/2015 7:35 PM EDT Flores Navarro LPN No [facility] Mental Status Date Assessment Result Facility 12-06-2024 Cognitive function Level Of Cons ciousness Awake;Alert;Appropriate;Fol lows Commands [facility] Work Phone: 01-13-2023 Cognitive function Level Of Cons ciousness Awake;Alert;Appropriate;Fol lows Commands [facility] Work Phone: 10-02-2022 Mental Status Orientation Oriented x 4 [facility] 10-02-2022 Mental Status [facility] 07-30-2022 Cognitive function Level Of Cons ciousness Awake;Alert;Appropriate;Fol lows Commands [facility] Work Phone: 06-17-2022 Cognitive function Level Of Cons ciousness Awake;Alert;Appropriate;Fol lows Commands [facility] Work Phone: 04-23-2015 Because of a physica l, mental, or emotional condition, do you have serious difficulty concentrating, remembering, or making decisions Yes 04/23/2015 7:35 PM EDT Flores Navarro LPN Yes [facility] Clinical Notes 08-16-2021 to 06-15-2025 Note Date & Type Note Facility 06-15-[address] [facility] 06-15-2025 Discharge summary Note Date/Time June 15, 2025 11:40pm [facility] Medical Records Department [address] [place] [id number] Emergency Department Summary 06/15/25 MR#: [id number] Acct: [id number] Name: GILBERTO JOHNSON Rep #:[id number] : 1985 39 From: Chidi teixeira DO PCP: Care Physician,No Primary Status :REG ER Location: ED HPI History of Present Illness Chief Complaint: Bite Narrative Narrative: Chief complaint and HPI: 39-year-old male with past medical history of anxiety presents for evaluation of dog tooth scratch to the nose. Patient states that he was outside with a friend's dog he was licking his face when the dog's tooth accidentally scratched his nose. 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 He was worried about scarring which is why presents to the emergency department. He is up-to-date on tetanus. Dog is up-to-date on vaccines. Denies injury elsewhere. Review of systems: See HPI Medications: As listed on the chart Allergies: As listed on the chart PFSH: Per chart Vital signs: As listed on the chart. Reviewed. Physical exam: Gen: A&O x3, NAD Head: Normocephalic, atraumatic Eyes: No sclera icterus, conjunctiva clear, PERRL, EOMI ENT: Moist mucous membranes, face atraumatic other than a 1 cm superficial scratch emir to the right lateral nose, face nontender to palpation Neck: Trachea midline, No JVD, full range of motion, nontender CV: RRR, no murmurs, Resp: Lungs CTA BL, no w/r/c Musc: Full ROM, no deformity Skin: Warm, dry Neuro: Alert, oriented, grossly intact, sensation intact Psych: Cooperative, appropriate mood and affect [facility] Medical History Acute sinusitis, unspecified Pancreatitis [...] 800 1 tab PO BID #6 TABLETS 10/27 Unknown Rx mg-trimethoprim 160 mg tablet [...] Date / Time Penicillins Allergy Unknown Verified 06/15/25 21:36 sumatriptan (From Imitrex) Allergy Unknown Verified 06/15/25 21:36 sumatriptan succinate (From Allergy Unknown Verified 06/15/25 21:36 Imitrex) amoxicillin (Amoxicillin) AdvReac Nausea/Vom/ Verified 06/15/25 21:36 Diarrhea Surgical History History of herniorrhaphy [...] use EXAM Physical Exam Const Vital Signs: 06/15/25 21:35 Temperature 98.7 F Temperature Source Oral Pulse Rate 100 Respiratory Rate 18 Blood Pressure 139/109 H Blood Pressure Mean 119 Pulse Ox 99 Oxygen Delivery Method Room Air MDM MDM MDM Narrative Medical decision making narrative: 39-year-old male with past medical history of anxiety presents for evaluation ofdog tooth scratch to the nose. Patient states that he was outside with a friend's dog he was licking his face when the dog's tooth accidentally scratchedhis nose. 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 He is up-to-date on tetanus. Dog is up-to-date on vaccines. Physical exam is unremarkable except for a 1 cm superficial scratch emir to the right lateral nose. Nothing that is gaping or need to repaired. Wound was cleaned. Bacitracin applied. Will place patient on a short course of antibiotics to prevent infection. Patient has penicillin listed as an allergy, he states he gets some nausea and vomiting. He was given the option of Augmentin with Zofran versus doxycycline and Flagyl. He elected to try the Augmentin. First dose given here. Patient stable to discharge home. Follow-upwith PCP. He confirmed understand the plan. Impression: 1. Dog tooth scratch to the lateral nose Discharge Plan Triage Chief Complaint: Bite ED Provider: Chidi Hermosillo Dx/Rx/DC Orders Prescriptions: No Action buspirone 5 MG tablet [...] 1), then 250 mg for 4 days (days2-5) ondansetron [ondansetron] 4 mg tablet,disintegrating 4 mg [...] Primary Care Provider: Care Physician,No Primary Referrals: Care Physician,No Primary [Primary Care Provider] - Print Language: Niuean What to do if you have Problems For any increased pain, shortness of breath, bleeding, nausea or vomiting, chestpain, or any unexpected problems, contact your Primary Care Provider. Call [facility] ([phone]) or report to the closest Emergency Room. Call 911 if necessary. 06/15/25 8620 <Electronically signed by Chidi Hermosillo DO> Cosigner Signature (if applicable): CC: No Primary Care Physician ~ Signed [facility] Work Phone: 1(193) 567-536807-25-2025 NoteHNO ID: [id number] Author: EMIR SIMONS PA-C Service: ? Author Type: Physician Inventory And Pricing Associate Type: Progress Notes Filed: 04/27/2025 18:40 Note Text: [facility] Subjective Gilberto Johnson is [...] MG TABLET - BENZONATATE 100 MG CAPSULE MDM Risk of Complications, Morbidity, and/or Mortality Presenting problems: low Diagnostic procedures: low Management options: [facility] History of Present illness Narrative* Emir Simons PA-C - 04/27/2025 6:38 PM EDT [facility] Subjective Gilberto Johnson is [...] MG TABLET - BENZONATATE 100 MG CAPSULE MDM Risk of Complications, Morbidity, and/or Mortality Presenting problems: low Diagnostic procedures: low Management options: edith Simons PA-C documented in this [facility] Discharge summary [facility] Medical Records Department [address] [place] [address] Emergency Department Summary 04/05/25 MR#: [id number] Acct: [id number] Name: GILBERTO JOHNSON Rep #:[id number] : 1985 39 From: Chidi teixeira DO PCP: Care Physician,No Primary Status :REG ER Location: ED HPI History of Present Illness Chief Complaint: Laceration Narrative Narrative: Chief complaint and HPI: Close head injury. 39-year-old male presents for evaluation of closed headinjury. Patient states he accidentally walked into a [...] 15 Psych: Cooperative, appropriate mood and affect [facility] Medical History Acute sinusitis, unspecified Pancreatitis [...] 800 1 tab PO BID #6 TABLETS 10/27 Unknown Rx mg-trimethoprim 160 mg tablet [...] IMPRESSION: No acute intracranial findings Reading Location: [place] [address] Discharge Plan Triage Chief Complaint: Laceration ED [...] 1), then 250 mg for 4 days (days2-5) ondansetron [ondansetron] 4 mg tablet,disintegrating 4 mg [...] Monitor for signs of concussion which we talkedabout. I also printed out some information on concussions if you develop one. Print Language: Niuean Disposition Disposition: Home, Self Care What to do if you have Problems For any increased pain, shortness of breath, bleeding, nausea or vomiting, chestpain, or any unexpected problems, contact your Primary Care Provider. Call [facility] ([phone]) or report tothe closest Emergency Room. Call 911 if necessary. 04/05/25 0250 Cosigner Signature (if applicable): CC: No Primary Care Physician ~ Signed [facility]07-03-2025 Radiology Diagnostic study note [facility] [address] [place] [address] Brain/Head without Contrast MR#: [id number] Acct: [id number] Name: GILBERTO JOHNSON Rep #: [id number] : 1985 M 39 From: Nina Foster MD PCP: Care Physician,No Primary Status: REG ER Study:Brain/Head without Contrast Date of Exa m: 04/05/25 Exam# [id number] Ordering Dr: Chidi Xiao DO PROCEDURE: BRAIN/HEAD [...] IMPRESSION: No acute intracranial findings Reading Location: [place] [address] CC: Dr. Chidi Hermosillo DO; No Primary Care Physician ~ [employer]: Signed [facility]03-13-2025 NoteHNO ID: [id number] Author: ALEX LANDERS MD Service: ? Author Type: Physician Type: Progress Notes Filed: 12/14/2024 19:08 Note Text: [facility] Subjective Gilberto Johnson is a [...] cetirizine and expectant management. Alex Landers MD [facility] History of Present illness Narrative* Alex Landers MD - 12/14/2024 7:00 PM EDT [facility] Subjective Gilberto Johnson is [...] cetirizine and expectant management. Alex Landers MD [facility] Procedures documented in this encounterM[facility]02-[facility] History of Present illness Narrative* Travis Hameed, PA - 11/19/2023 5:55 PM EST This note was created using [employer]. Subjective Gilberto Johnson is a 38 year [...] No vomiting or diarrhea. He does chew tobaccoand is concerned this is affecting his mouth [...] RELIEF) 50 mcg/actuation nasal spray Use 1 Leona in each nostril twicedaily. loratadine (CLARITIN) 10 mg tablet Take 1 tablet by mouth once daily. naproxen (NAPROSYN) 500 mg tablet Take 1 tablet by mouth twice daily as needed (pain/inflammation, take with food.). gleevcvzohXKWJO-kgcbkl-apciadnhu (BMX 1:1:1) 1:1:1 liqd Mix in equal [...] by mouth once daily. (Patient not taking: Reportedon 03/27/2022 ) Chlorhexidine Gluconate (PERIDEX) 0.12 % solution Use 15 mL as instructed twice daily. (Patient nottaking: Reported on 03/27/2022 ) ondansetron (ZOFRAN, HYDROCHLORIDE,) 4 mg tablet Take 1 tablet by mouth every 8 hours as needed.(Patient not taking: Reported on 03/27/2022 ) esomeprazole [...] ER evaluation. LATOYA Kendrick documented in this encounterM[facility] Hospital Discharge instructions Additional Instructions Please continue your antibiotic that was given to you at your last visit and wash the area with soap and water. The remaining redness and swelling will resolve over the next 2 to 3 days and then the scab will form.[facility] Work Phone: 1([phone]) 454-229602-28-[address] [facility] December 01, 2022 9:30pm Note Date/Time December 01, 2022 9:28pm [facility] Medical Records Department [address] [place] [address] Emergency Department Summary 12/01/22 MR#: [id number] Acct: [id number] Name: GILBERTO JOHNSON Rep #:[id number] : [...] your Primary Care Provider. Call [facility] ([phone]) or report to the closest Emergency Room. Call 911 if necessary. 12/01/222129 <Electronically signed by Michel Elena MD> Cosigner Signature (if applicable): CC: NEVAEH FRAGA ~ Signed [facility] Work Phone: 1(207) 906-648212-30-2022 Hospital Discharge instructions Patient Education 10/02/2022 20:40:33 [...] in 1/2 cup of warm water An pxks-fpe-vushhmv anesthetic gargle Use medicine for more relief Jmkv-qgc-exjetgl medicine can reduce sore throat symptoms. Ask [...] swollen glands in the neck or jaw 4133-5[address] [employer]. [address] [place] [address]. All rights reserved. This information is not intended as a substitute for professional medical care. Always follow yourhealthcare professional's instructions. Follow Up Care 10/02/2022 19:21:21 With:NEVAEH FRAGA MD Address: [address] [place] [phone]- [phone] When:2-4 days [facility] 12-30-2022 Emergency department Discharge summary Discharge Instructions Thank you for allowing [facility] to assist you with your healthcare needs. The following is importantdischarge information regarding your hospital visit. Diagnosis from Today's Visit swollen gland in throat What to Do Next Instructions from Your Care Team No qualifying data available. Post Acute Orders No qualifying data available. You Need to Schedule the Following Appointments Follow Up with NEVAEH FRAGA MD When Within 2-4 days Where: [address] [place] [phone]- [phone] Allergies amoxicillin penicillin (Rash) Medications Please ask your primary doctor or pharmacist before taking any other medication not listed, including over the counter drugs, herbal medications, vitamins and or supplements as they may interact withur home medications. What How Much When Instructions [...] in 1/2 cup of warm water An tlxe-dke-ailwcsw anesthetic gargle Use medicine for more relief Mpuk-nlq-uihizbb medicine can reduce sore throat symptoms. Ask [...] swollen glands in the neck or jaw 8492-0831 [employer]. [address] [place], [place] [address]. All rights reserved. This information is not intended as a substitute for professional medical care. Always follow yourhealthcare professional's instructions. Additional Information VACCINATE! IT SAVES LIVES! Members of the community who have not yet received the COVID-19 vaccine and would like to receive it can visit one of [facility] vaccine clinics. There are many vaccine clinic locations within the [facility]. For locations and available times, please visit [email or web address]. It is important to note that some COVID mobile vaccine clinics are held outdoors and may be canceled in rainy orstormy conditions. To learn more about pediatric vaccinations (ages 5-11), we invite you to visit the [facility] webpage. https://[email or web address]/pages/1015-Xircu-Dwzhdxnddma-Jvgldokphq-Zlzuv-Yng stions.htmlTo learn more about the COVID-19 vaccine, we invite you to visit the [facility] website for a list of frequently asked questions. [email or web address]/assets/Uckkuhet-mkf-Kpyjsvvs/bhatu-Uodupyf-Lyzovrbpyl _[email or web address]-Questions.pdf [facility] Patient Portal Access Instructions: Stay connected with your healthcare team and access your personal medical information anytime with the [facility] Patient Portal. If you would like a full copy of your medical records please contact the [facility] Medical Records Department Wednesday through Wednesday between 8a.m. and 4:30p.m. Please follow the directions below to access the portal: 1.Access the email account you provided upon registration to the [facility].2.Look for an invitation email from [facility].3.Open the email and access the invitation link: Accept Invitation to [facility]4.Fill in the required lambert to create your account. Sign into www.[employer] with your username and password that you [...] you will allow to register on the [facility] Patient Portal for access to your information. You can also access the [facility] Patient Portal on the [employer]. Simply click on Health Records under howsimple and then click on the [employer] logo. HOW TO SAFELY DISPOSE OF PRESCRIPTION [...] Call your local pharmacy or go to [email or web address] to find one close to you.3.Make use of household items: Use cat litter or old coffee grounds to dispose medications if other options arenot available. Mix your drugs with these household products, seal them in an airtight container andthrow it into the garbage. Call [facility]: [phone] to be sure your drugs can be [...] aware that I should contact my doctor. 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 Yoli Jensen LPN * Telephone Encounter - Yoli Jensen LPN - 06/30/2022 11:35 AM EDT Received fax to request records from referrals dated 03/15/22-03/21/2022. Yoli Jensen LPN documented in this encounterM[facility]06-[facility] Miscellaneous Notes* Telephone Encounter - Nandini [...] No infection in the urine JORGE Calderon, [place], LYNDON documented in this encounterMccull[facility]06-[facility]-2022 Hospital Discharge instructions* Instructions* Bassem Elena [...] important. You should call the offices of [facility] on Wednesday and ask for an appointment to be seen as soon as they can work you in; at that time they may decide that a cystoscopy or other testing is necessary to furtherevaluate the cause of your bloody urine. Also make [facility]; we are not making [...] sent through Care Everywhere. * Anxiety Disorder (Niuean) * Hematuria (Niuean) * Cystoscopy: Pre-op (Niuean) documented in this encounterSUM[facility] Work Phone: 1(699) 968-305906-24-2022 History of Present illness Narrative* Kevin Gill [...] RELIEF) 50 mcg/actuation nasal spray Use 1 Leona in each nostril twicedaily. loratadine (CLARITIN) 10 [...] Plan: Appointment with Kevin. documented in this encounterMccull[facility]06-22-2022 Miscellaneous Notes* Telephone Encounter - Yoli Jensen LPN - 03/25/2022 2:35 PM EDT Received outside medical records from [facility]. Patient has appointment Wednesday. Provided to Kevin Gill PA-C to review and to operations to be scanned. Yoli Jensen LPN documented in this encounterMccull[facility]06-20-2022 Hospital Discharge instructions* Instructions* Florecita Caruso MD - 03/23/2022 Take your anxiety medications when you get home. Call your doctor tomorrow for reevaluation. * Attachments The following attachments cannot be sent through Care Everywhere. * Anxiety Disorder (Niuean) * Dysuria (Niuean) documented in this encounterSUMInvoice[facility] Work Phone: 1(910) 774-986105-16-2022 Hospital Discharge instructions* Instructions* Lynn Gutierrez DO - 02/16/2022 You have seasonal allergies, you are given a prescription for Zyrtec and Nasacort. Follow-up with your primary care physician. Return to the emergency department for new or worsening symptoms. * Attachments The following attachments cannot be sent through Care Everywhere. * Allergies: Seasonal (Niuean) documented in this [facility] Work Phone: [phone]) 435-961303-20-2022 Note. MICRO - Microbiology PROCEDURE: Urine Culture [...] Locations *1: This test was performed at: [facility], [address] [place] [address], [address]- , [facility] ([place])12-19-2021 Hospital Discharge instructions Patient Education 12/19/2021 10:17:36 [...] problems caused by scarring or long-term infections. 9550-[address] [employer]. [address] [place] [address]. All rights reserved. This information is not intended as a substitute for professional medical care. Always follow yourhealthcare professional's instructions. Follow Up Care 12/19/2021 09:24:18 With:your urologist Address: When: Unknown [facility] 11-13-2021 Hospital Discharge instructions* Instructions* Florecita Lombardi MD - 08/16/2021 Return if high fever develops or increased shortness of breath * Attachments The following attachments cannot be sent through Care Everywhere. * Bronchitis (Niuean) documented in this [facility] Work Phone: Discharge summary Author Dr. Richards [facility] January 13, 2023 6:43am Note Date/Time January 13, 2023 6:4 3am [facility] Medical Records Department [address] [place] [address] Emergency Department Summary 01/13/23 MR#: [id number] Acct: [id number] Name: GILBERTO JOHNSON Rep #:[id number] : [...] he has a primary care physician in [place] but cannot get there because he does [...] this to him again but I did certified travel counselor him that I do not find [...] your Primary Care Provider. Call [facility] ([phone]) or report to the closest Emergency Room. Call 911 if necessary. 01/13/23 0643 <Electronically signed by Wally Richards DO> Cosigner Signature (if applicable): CC: No Primary Care Physician ~ Signed [facility] Work Phone: Discharge summary Author Chidi Hermosillo [facility] Note Date/Time April 05, 2025 2:50a m [facility] Medical Records Department [address] [place] [address] Emergency Department Summary 04/05/25 MR#: [id number] Acct: [id number] Name: GILBERTO JOHNSON Rep #:[id number] : [...] 15 Psych: Cooperative, appropriate mood and affect [facility] Medical History Acute sinusitis, unspecified Pancreatitis [...] 800 1 tab PO BID #6 TABLETS 10/27 Unknown Rx mg-trimethoprim 160 mg tablet [...] IMPRESSION: No acute intracranial findings Reading Location: [place] [address] Discharge Plan Triage Chief Complaint: Laceration ED [...] concussions if you develop one. Print Language: Niuean Disposition Disposition: Home, Self Care What to do if you have Problems For any increased pain, shortness of breath, bleeding, nausea or vomiting, chestpain, or any unexpected problems, contact your Primary Care Provider. Call [facility] ([phone]) or report to the closest Emergency Room. Call 911 if necessary. 04/05/25 0250 <Electronically signed by Chidi Hermosillo DO> Cosigner Signature (if applicable): CC: No Primary Care Physician ~ Signed [facility] Work Phone: Evaluation + Plan note Future Appointments Appointment Date:01/30/2022 01:20:00 PM Scheduled Provider:JEANNE JULIEN Location:UROLOGY Appointment Type:URO OVERCOIL STEPPER Diagnostic Tests Pending * Urine Culture 12/19/21 [facility] Evaluation note* Diagnosis Bronchitis- Primary Bronchitis, not [...] Diagnosis Dysuria- Primary documented in [facility] encounter [facility]* Diagnosis Abnormal laboratory test- Primary Other abnormal clinical finding Anxiety state Anxiety state, unspecified documented in this encounter [facility] Work Phone: Evaluation note* Diagnosis Acute cystitis with hematuria- Primary Acute cystitis documented in this encounter [facility] Work Phone: Evaluation noteNo assessment information available [facility] Work Phone: Evaluation note* Diagnosis Mouth sore- Primary Other and unspecified diseases of the oral soft tissues Bacterial sinusitis Unspecified sinusitis (chronic) [facility] Diagnosis Post-nasal drainage- Primary Unspecified sinusitis (chronic) documented in this encounter [facility] note* Diagnosis Acute non-recurrent sinusitis, unspecified location- Primary documented in this encounter [facility] course Narrative No data available for this section [facility] Hospital Discharge instructions* Attachments The following attachments cannot be sent through Care Everywhere. * Headache (Niuean) documented in this [facility] Work Phone: Hospital Discharge instructions* Attachments The following attachments cannot be sent through Care Everywhere. * Anxiety Disorder (Niuean) documented in this [facility] Work Phone: Hospital Discharge instructions* Attachments The following attachments cannot be sent through Care Everywhere. * Dysuria (Niuean) documented in this [facility] Work Phone: Hospital Discharge instructions No data available for this section [facility] Hospital Discharge instructions* Attachments The following attachments cannot be sent through Care Everywhere. * UTI (Urinary Tract Infection): Male (Niuean) documented in this [facility] Work Phone: Hospital Discharge instructions Additional [...] get a call then that means is negative.[facility] Work Phone: Hospital Discharge instructions Additional Instructions Follow-up with your primary care physician within next [address] Work Phone: Hospital Discharge instructions Additional Instructions Zofran as needed for nausea. Plenty of fluids and rest. Follow-up with a local primary care physician if not improving.[facility] Work Phone: Hospital Discharge instructionsAdditional Instructions Monitor for signs of infection of your abrasion. Follow-up with your primary care physician if you do not have 1 follow-up with the one provided above. Monitor for signs of concussion which we talked about. I also printed out some information on concussions if you develop one.[facility] Work Phone: Hospital Discharge instructionsAdditional Instructions Follow-up with your primary care physician. If you do not have one follow-up with the one provided above. No lakes, mccormick, oceans, hot tubs until fully healed. Monitor for signs of infection. Take all of your antibiotics. You are given your first dose here in the emergency department.[facility] Work Phone: Progress note No data available for this section [facility] Reason for referral (narrative)No reason for referral information availableWMem[facility] Work Phone: Summary Purpose Family History No Family History Records FoundNo Family History Records FoundNo Family History Records FoundNo Family History Records FoundNo Family History Records FoundNo Family History Records Found Advance Directives No Advanced Directives Records Found Advance Directive Response Recorded Date/ Time Living Will No June 17, 2022 8:33pm Power of Assembly Line Machine Operator No June 8:33pm Advance Directive Response Recorded Date/ Time Living Will No July 29 11:33pm Power of Assembly Line Machine Operator No July 29, 2022 11:33pm Advance Directive Response Recorded Date/ Time Living Will No August 20, 2 022 12:05pm Power of Assembly Line Machine Operator No August 20, 2022 12:05pm Advance Directive Response Recorded Date/ Time Living Will No September 03 3:25pm Power of Assembly Line Machine Operator No September 03, 2022 3:25pm Advance Directive Response Recorded Date/ Time Living Will No September 09 3:07pm Power of Assembly Line Machine Operator No September 09, 2022 3:07pm Advance Directive Response Recorded Date/ Time Living Will No December 01, 2 023 8:51pm Power of Assembly Line Machine Operator No December 01, 2022 8:51pm Advance Directive Response Recorded Date/ Time Living Will No January 02, 2023 6:38am Power of Assembly Line Machine Operator No January 02 6:38am Advance Directive Response Recorded Date/ Time Living Will No January 02, 2023 9:36pm Power of Assembly Line Machine Operator No January 02 9:36pm Advance Directive Response Recorded Date/ Time Living Will No January 13, 2023 6:20am Power of Assembly Line Machine Operator No January 13 6:20am Advance Directive Response Recorded Date/ Time Living Will No February 03, 2023 6: 17am Power of Assembly Line Machine Operator No February 03, 2023 6:17am Advance Directive Response Recorded Date/ Time Living Will No February 28, 2023 8 :00pm Power of Assembly Line Machine Operator No February 28, 2023 8:00pm Advance Directive Response Recorded Date/ Time Living Will No June 05 6:46pm Power of Assembly Line Machine Operator No June 05, 2023 6:46pm Advance Directive Response Recorded Date/ Time Living Will No December 25, 2023 3:48am Power of Assembly Line Machine Operator No December 24 3:48am Advance Directive Response Recorded Date/ Time Living Will No December 06, 2024 2:33pm Do you have a Healthcare Power of Assembly Line Machine Operator? No December 06, 2024 2:33pm Do you have a Healthcare Power of Assembly Line Machine Operator? No March 19, 2025 12:45am Advance Directive Response Recorded Date/ Time Living Will No December 06, 2024 2:33pm Do you have a Healthcare Power of Assembly Line Machine Operator? No December 06, 2024 2:33pm Do you have a Healthcare Power of Assembly Line Machine Operator? No March 19, 2025 12:45am Do you have a Healthcare Power of Assembly Line Machine Operator? No April 05, 2025 1:17am Advance Directive Response Recorded Date/ Time Do you have a Healthcare Power of Assembly Line Machine Operator? No June 16, 2025 12:04am Do you have a Healthcare Power of Assembly Line Machine Operator? No March 19, 2025 12:45am Do you have a Healthcare Power of Assembly Line Machine Operator? No April 05, 2025 1:17am Reason for Referral Specialty Diagnoses / Procedures Referred By Rosa M t Referred To Contact Family Medicine Diagnoses Acute nonintractable headache, unspecified headache type Tereso Kuo MD [address] [place] [address] [facility] [address] [place] [address] Referral ID Status Reason Start Date Expiration Date V isits Requested Visits Authorized [id number] Open Specialty Services Required 10/04/2021 10/04/2022 1 1 Scheduling Instructions [address] [place] [address] Chief Complaint and Reason for Visit Chief [...] head lac April 05, 2025 1:13a m Chief Complaint Admit Date n/v March 19, 2025 12:4 1am head lac April 05, 2025 1:13a m dog bite June 15, 2025 9:35pm Additional Source Comments (unrecognized sect ion and content) No Status Records FoundNo Status Records FoundNo Status Records FoundNo Status Records FoundNo Status Records FoundNo Status Records Found INFORMATION SOURCE (unrecogn ized section and content) DATE CREATED AUTHOR 03/30/2018 [facility] DATE CREATED AUTHOR AUTHOR'S ORGANIZ ATION 10/27/2020 [facility] DATE CREATED AUTHOR AUTHOR'S ORGANIZ ATION 05/05/2022 [facility] DATE CREATED AUTHOR AUTHOR'S ORGANIZ ATION 10/16/2022 [facility] ([place]) DATE CREATED AUTHOR AUTHOR'S ORGANIZ ATION 04/29/2025 [facility] DATE CREATED AUTHOR AUTHOR'S ORGANIZ ATION 06/20/2025 [facility] Reason for Visit (unrecogniz ed section [...] Comments Results Reason Comments 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 Reason Comments Mouth Sores L [...] Oral, DAILY, First dose on Wed03/17/22 at 204, Until Discontinued, Antimicrobial Indications: STD infection 2043 (Due) ondansetron (ZOFRAN-ODT) disintegrating tablet 4 mg 4 mg, Oral, ONCE, 1 dose, On Wed03/17/22 at 2044 2044 (Due) Scheduled Medication Order [...] or prosecute any alcohol or drug abuse patient.[facility] the event this information is protected by the Federal Confidentiality of Alcohol and Drug Abuse Patient Records regulations: The Federal rules restrict any use of the information to criminally investigate or prosecute any alcohol or drug abuse patient.[facility] Hospital[facility] the event this information is protected by the Federal Confidentiality of Alcohol and Drug Abuse Patient Records regulations: The Federal rules restrict any use of the information to criminally investigate or prosecute any alcohol or drug abuse patient.[facility] Hospital[facility] the event this information is protected by the Federal Confidentiality of Alcohol and Drug Abuse Patient Records regulations: The Federal rules restrict any use of the information to criminally investigate or prosecute any alcohol or drug abuse patient.[facility] Hospital[facility] the event this information is protected by the Federal Confidentiality of Alcohol and Drug Abuse Patient Records regulations: The Federal rules restrict any use of the information to criminally investigate or prosecute any alcohol or drug abuse patient.[facility] Hospital[facility] the event this information is protected by the Federal Confidentiality of Alcohol and Drug Abuse Patient Records regulations: The Federal rules restrict any use of the information to criminally investigate or prosecute any alcohol or drug abuse patient.[facility] the event this information is protected by the Federal Confidentiality of Alcohol and Drug Abuse Patient Records regulations: The Federal rules restrict any use of the information to criminally investigate or prosecute any alcohol or drug abuse patient.[facility] Care Teams (unrecognized sec tion and content) Fruit Packer Face And Fill Relationship Specialty Start Date End Date Dalton Art DO [address] [place] [address] PCP - General Family Practice 10/05/21 Fruit Packer Face And Fill Relationship Specialty Start Date End Date Dalton Art DO [address] [place] [address] PCP - General Family Practice 10/05/21 Fruit Packer Face And Fill Relationship Specialty Start Date End Date Dalton Art, [address] [facility] [place] [address] PCP - General Family Practice 10/05/21 Fruit Packer Face And Fill Relationship Specialty Start Date End Date Dalton Art, DO [address] [facility] [place] [address] PCP - General Family Medicine 10/05/21 Team [...] Dr. Michel Elena MD Emergency Provider Active NEVAEH, JESSICA [...] JESSICA Primary Care Provider Active Dr. Matt Andes , DO Attending Provider, Emergency Pr ovider Active [...] Dr. Pam Bear MD Emergency Provider Active Fruit Packer Face And Fill Relationship Specialty Start Date End Date Dalton Art DO [address] [facility] [place] [address] PCP - General Family Medicine 10/05/21 Fruit Packer Face And Fill Relationship Specialty Start Date End Date Dalton Art DO [address] [facility] [place] [address] PCP - General Family Medicine 10/05/21 Vania Szymanski, CONCRETE FLOAT MAKER.DIRECTOR OF SEARCH ENGINE OPTIMIZATION [address] [place] [address] Chief Medical Physicist Family Medicine 09/10/24 Royer Green CONCRETE FLOAT MAKER.DIRECTOR OF SEARCH ENGINE OPTIMIZATION [employer] [address] [place] [address] Chief Medical Physicist Family Medicine 11/14/24 Team Status: Active Member [...] April 05, 2025 End: April 05, 2025 Fruit Packer Face And Fill Relationship Specialty Start Date End Date Dalton Art DO [address] [facility] [address] [place] [id number] PCP - General Family Medicine 10/05/21 Vania Szymanski, SHANDRA.DIRECTOR OF SEARCH ENGINE OPTIMIZATION [address] [place] [id number] Chief Medical Physicist Family Medicine 09/10/24 Royer Green APRN.DIRECTOR OF SEARCH ENGINE OPTIMIZATION [employer] [place] [address] Chief Medical Physicist Family Medicine 11/14/24 Team Status: Inactive Member Role/Relationship Status Dates [...] April 05, 2025 Dr. Chidi Hermosillo DO Attending Provider Activ e Start: April 05, 2025 End: April 05, 2025 Dr. Chidi Hermosillo DO Emergency Provider Activ e Start: April 05, 2025 End: April 05, 2025 Team Status: Inactive Member Role/Relationship Status Dates No Primary Care Physician Primary Care Provider Active Start: June 15, 2025 End: June 16, 2025 Dr. Chidi Hermosillo DO Emergency Provider Active Start: June End: June 16, 2025 Care Team (unrecognized sect ion and content) Personnel Name: NEVAEH FRAGA MD Address: Address: [address] [place] [address] Care Team Personnel Name: NEVAEH FRAGA MD Member Role: Primary Care Physician Address: Address: [address] [place] [address] Name: Lisa Szymanski RN Position: AO RN Member Role: RN Name: MCKAYLA CARSON DO Position: ED Physician Member Role: Attending Physician Address: Address: [facility] [address] Care Team Related Persons Name: URCONIS, [...] BE BASED ON THE PRIMARY CLINICAL RECORDS. [employer] provides no warranty or guarantee of the accuracy or completeness of information in this document.
[2025-08-23] MEDS: Lidocaine 2% Viscous15 ML UDC 15 ML PO (00:14)
--- NOTE | 2025-08-23 00:35 | EX.ED.DYSGE1 ---
HPI History of Present Illness Chief Complaint: Cough Informant: patient and spouse/S.O. Narrative Narrative: Patient is a 40-year-old male with past medical history of anxiety. He states he has had approximately 7 days of nasal congestion and cough and sinus pain/pressure. He reports he was recently seen at the urgent care and diagnosed with sinusitis and placed on doxycycline. He states he has been taking that for the last 3 to 4 days but despite this is continuing to cough. He states that he feels that he should be coughing up phlegm but is unable to do so which concerns him and therefore he presents for evaluation. Patient does admit to chewing tobacco but denies smoking or vaping or history of COPD or emphysema or asthma [facility] Medical History Acute sinusitis, unspecified Pancreatitis Chronic GERD Tobacco use Anxiety Home Medications ?Medication ?Instructions ?Recorded ?Last Taken ?Type buspirone 5 mg tablet 10 mg PO TID PRN Anxiety 06/10/17 04/05/25 History quetiapine 25 mg tablet 25 mg PO TID 06/28/21 04/05/25 History amoxicillin 875 mg-potassium 1 tab PO BID 5 days #10 tabs 06/15/25 Unknown Rx clavulanate 125 mg tablet doxycycline hyclate 100 mg capsule 100 mg PO BID 08/22/25 Unknown History fluticasone propionate 50 1 spray intranasal DAILY 08/22/25 Unknown History mcg/actuation nasal spray,suspension loratadine 10 mg tablet (Allergy 10 mg PO DAILY 08/22/25 Unknown History Relief (loratadine)) codeine 10 mg-guaifenesin 100 mg/5 10 ml PO 4X/DAY PRN cough 5 days 08/23/25 Unknown Rx mL oral liquid #200 mL prednisone 20 mg tablet 40 mg (2 x 20 mg) PO DAILY 5 days 08/23/25 Unknown Rx #10 tabs Allergy/AdvReac Type Severity Reaction Status Date / Time Penicillins Allergy Unknown Verified 08/22/25 23:41 sumatriptan (From Imitrex) Allergy Unknown Verified 08/22/25 23:41 sumatriptan succinate (From Allergy Unknown Verified 08/22/25 23:41 Imitrex) amoxicillin (Amoxicillin) AdvReac Nausea/Vom/ Verified 08/22/25 23:41 Diarrhea Surgical History History of herniorrhaphy No significant past surgical history Social History household members: family Smoking Status: Current every day smoker tobacco type: cigarettes and e-cigarettes Smokeless tobacco user: chewing tobacco how long ago did patient quit smoking: Former cigarette tobacco use, now chew tobacco 2-3 wads daily. alcohol intake: never details: Patient states he currently is not drinking any alcoholic beverages substance use type: does not use ROS ROS ED Constitutional Constitutional ED: Denies chills or fever(s) ENT ENT ED: Reports rhinorrhea and sore throat Cardiovascular Cardiovascular: Denies chest pain Respiratory/Chest Respiratory/Chest: Reports cough; Denies dyspnea Gastrointestinal Gastrointestinal: Denies abdominal pain, diarrhea, nausea or vomiting Musculoskeletal Musculoskeletal: Denies myalgias Integumentary Denies rash Neurologic Neurologic: Denies headache(s) Hematologic/Lymphatic Hematologic/Lymphatic: Denies easy bleeding or easy bruising Allergic/Immunologic Allergic/Immunologic ED: Denies mouth swelling or tongue swelling EXAM Physical Exam Const Vital Signs: 08/22/25 23:41 08/22/25 23:41 08/23/25 00:45 Temperature 98.2 F 98.4 F Temperature Source Oral Pulse Rate 87 82 Respiratory Rate 18 18 Respiratory Effort Normal Non-Labored Respiratory Depth Normal Respiratory Pattern Normal Blood Pressure 136/87 H 129/83 H Blood Pressure Mean 103 98 Pulse Ox 100 100 Oxygen Delivery Method Room Air Room Air Positive well nourished and well developed General Appearance ED: well developed; Negative for pallor HEENT HEENT Narrative: Normocephalic atraumatic Bilateral TMs are retracted but show no secondary findings to suggest infection Nasal mucosa is hyperemic and boggy with enlarged inferior nasal turbinate No tongue or lip swelling no oral lesions no airway edema or compromise; there is cobblestoning noted in the posterior pharynx consistent with sinus drainage but no secondary findings to suggest infection No pain with palpation over top of the frontal ethmoid or maxillary sinuses Eyes PERRL and EOMs intact bilaterally Neck supple Neck Narrative: No nuchal rigidity or meningeal signs Lymph Lymphatic Narrative: Positive anterior cervical lymphadenopathy noted Resp normal respiratory effort and clear to auscultation bilaterally Resp Narrative: No nasal flaring retractions tachypnea or accessory muscle use Breath sounds are clear throughout Cardio regular rate and regular rhythm Extremity normal to inspection Neuro oriented x3, CN's II-XII intact bilaterally and no sensory deficits noted Sensorium / Orientation: alert Motor Exam: strength 5/5 throughout Psych Mood & Affect: anxious Skin no rashes or lesions noted General Skin Exam: Negative for jaundice or pallor MDM MDM MDM Narrative Medical decision making narrative: Patient arrived to the ER with stable vitals and in no acute respiratory distress. He had concerned that he was taking doxycycline but still coughing and he was worried he may have pneumonia. In order to rule out retained pneumonia versus pneumothorax versus pleural effusion a chest x-ray was obtained. We did discuss potential viral swab for COVID influenza and RSV but as he is not hypoxic or in respiratory distress and has had symptoms for 1 week a positive swab would not change treatment options. Therefore we elected not to perform the viral swab. The patient's chest x-ray revealed no acute lung pathology. After receiving oral steroids and Robitussin with codeine he reported feeling much better and remained in no acute distress. Therefore there is no need for further intervention or workup and he is otherwise safe for discharge with symptomatic care History & Record Review Discussion w/independent historian: Patient and Significant other Radiography Diagnostic Testing: Clinical Impression(s) from Imaging Studies Chest X-Ray 08/22/25 23:59 IMPRESSION: No evidence for acute abnormality. Reading Location: [place] [address] Chest x-ray as interpreted by the emergency medicine physician reveals no acute infiltrate pneumothorax or pleural Discharge Plan Triage Chief Complaint: Cough ED Provider: Matt Whatley Dx/Rx/DC Orders Clinical Impression: Viral upper respiratory tract infection with cough, Anxiety Instructions: ED Viral Syndrome (Adult) Prescriptions: New prednisone 20 mg tablet 40 mg PO DAILY 5 Days Qty: 10 0RF codeine-guaifenesin 10-100 mg/5 mL liquid 10 ml PO 4X/DAY PRN (Reason: cough) 5 Days Qty: 200 0RF No Action buspirone 5 MG tablet 10 mg PO TID PRN (Reason: Anxiety) quetiapine 25 mg tablet 25 mg PO TID amoxicillin-pot clavulanate 875-125 mg tablet 1 tab PO BID 5 Days Qty: 10 0RF doxycycline hyclate 100 mg capsule 100 mg PO BID fluticasone propionate 50 mcg/actuation spray,suspension 1 spray INTRANASAL DAILY loratadine [Allergy Relief (loratadine)] 10 mg tablet 10 mg PO DAILY Primary Care Provider: Care Physician,No Primary Referrals: Charbel Vela MD [Med Staff - Active Staff, Family Practice] Care Physician,No Primary [Primary Care Provider, Medical] Activity Restrictions/Additional Instructions: Your x-ray revealed no pneumonia. Your symptoms are consistent with a viral upper respiratory tract infection which will take on average 2 to 3 weeks to resolve. Continue to take your doxycycline and use your nasal spray and loratadine. However add the prednisone and cough syrup as directed to help reduce congestion and inflammation and cough. Return to the ER should you have any further concerns Print Language: Lao Disposition Disposition: Home, Self Care Discharge Date/Time: 08/23/25 00:46
[2025-08-23 00:45] VITALS: BP 129/83; PULSE 82; RESP 18; TEMP 36.9; O2SAT 100
== END 2025-08-23 00:46 | disposition home or self-care (01) ==
PROVIDERS: Emergency Provider Emergency Medicine; Visit Provider Emergency Medicine
DX: J06.9 Acute upper respiratory infection, unspecified (principal); F41.9 Anxiety disorder, unspecified; F17.220 Nicotine dependence, chewing tobacco, uncomplicated; K21.9 Gastro-esophageal reflux disease without esophagitis; Z79.899 Other long term (current) drug therapy
CPT/HCPCS: 71046; 99283

== ENCOUNTER 2025-08-23 17:03 | Emergency (ER) | payer MEDICARE, MEDICAID, SELFPAY ==
[2025-08-23 17:05] VITALS: BP 134/84; PULSE 90; RESP 18; TEMP 37.2; O2SAT 98; BMI 24.5
--- NOTE | 2025-08-23 17:08 | EX.ED.DYSGE1 ---
HPI History of Present Illness Chief Complaint: Hypertension Informant: patient Onset/Context/Timing Onset: Today Context: Sudden Onset Timing: Intermittent Quality: Burning Location: Epigastric area Worsened by: Anxiety Relieved by: Nothing Narrative Narrative: Patient presents with elevated blood pressure that was noticed today. EMS reported patient's blood pressure was 171/111. Patient admits to some abdominal pain and nausea. Patient denies any vomiting. Patient states he has had a recent upper respiratory infection and was recently started on antibiotics. Patient denies any fevers or chills. Patient states his face feels hot. Patient admits to some burning over the epigastric area. Patient states his blood pressure goes up whenever he becomes anxious. [facility] Medical History Acute sinusitis, unspecified Pancreatitis Chronic GERD Tobacco use Anxiety Home Medications ?Medication ?Instructions ?Recorded ?Last Taken ?Type buspirone 5 mg tablet 10 mg PO TID PRN Anxiety 06/10/17 04/05/25 History quetiapine 25 mg tablet 25 mg PO TID 06/28/21 04/05/25 History amoxicillin 875 mg-potassium 1 tab PO BID 5 days #10 tabs 06/15/25 Unknown Rx clavulanate 125 mg tablet doxycycline hyclate 100 mg capsule 100 mg PO BID 08/22/25 Unknown History fluticasone propionate 50 1 spray intranasal DAILY 08/22/25 Unknown History mcg/actuation nasal spray,suspension loratadine 10 mg tablet (Allergy 10 mg PO DAILY 08/22/25 Unknown History Relief (loratadine)) codeine 10 mg-guaifenesin 100 mg/5 10 ml PO 4X/DAY PRN cough 5 days 08/23/25 Unknown Rx mL oral liquid #200 mL prednisone 20 mg tablet 40 mg (2 x 20 mg) PO DAILY 5 days 08/23/25 Unknown Rx #10 tabs Allergy/AdvReac Type Severity Reaction Status Date / Time Penicillins Allergy Unknown Verified 08/23/25 17:10 sumatriptan (From Imitrex) Allergy Unknown Verified 08/23/25 17:10 sumatriptan succinate (From Allergy Unknown Verified 08/23/25 17:10 Imitrex) amoxicillin (Amoxicillin) AdvReac Nausea/Vom/ Verified 08/23/25 17:10 Diarrhea Surgical History History of herniorrhaphy No significant past surgical history Social History household members: family Smoking Status: Current every day smoker tobacco type: cigarettes and e-cigarettes Smokeless tobacco user: chewing tobacco how long ago did patient quit smoking: Former cigarette tobacco use, now chew tobacco 2-3 wads daily. alcohol intake: never details: Patient states he currently is not drinking any alcoholic beverages substance use type: does not use ROS ROS ED Constitutional Constitutional ED: Denies chills or fever(s) Eyes Eyes: Denies blurry vision or change in vision ENT ENT ED: Denies rhinorrhea or sore throat Cardiovascular Cardiovascular: Denies chest pain or palpitations Respiratory/Chest Respiratory/Chest: Reports cough; Denies dyspnea Gastrointestinal Gastrointestinal: Reports abdominal pain and nausea; Denies vomiting Genitourinary Genitourinary ED: Denies dysuria or hematuria Musculoskeletal Musculoskeletal: Denies back pain or neck pain Integumentary Denies abscess or rash Neurologic Neurologic: Reports headache(s); Denies weakness Allergic/Immunologic Allergic/Immunologic ED: Denies mouth swelling or urticaria EXAM Physical Exam Const Vital Signs: 08/23/25 17:05 Temperature 98.9 F Temperature Source Oral Pulse Rate 90 Respiratory Rate 18 Blood Pressure 134/84 H Blood Pressure Mean 100 Pulse Ox 98 Oxygen Delivery Method Room Air Positive well nourished and well developed General Appearance ED: well developed and NAD HEENT Reports moist mucous membranes Neck supple and no JVD Resp normal respiratory effort and clear to auscultation bilaterally Cardio regular rate and regular rhythm GI non-distended Palpation: soft and tender epigastric, LUQ and RUQ; Negative for guarding or rebound tenderness present Neuro oriented x3, CN's II-XII intact bilaterally and no sensory deficits noted Sensorium / Orientation: alert Motor Exam: strength 5/5 throughout Psych mental status grossly normal MDM MDM MDM Narrative Medical decision making narrative: Differential diagnosis includes gastritis, peptic ulcer disease, duodenal ulcer, pancreatitis, anxiety, uncontrolled hypertension, and hypertensive urgency. CBC will be obtained to assess for leukocytosis and anemia. Comprehensive metabolic profile will be obtained to assess for hepatic function, renal function, and electrolyte abnormality. Lipase will be obtained to assess for pancreatitis. History & Record Review Additional record(s) reviewed:: Prior outpatient record and Prior ED visit Treatment and Re-Evaluation :: Patient was refusing lab draw and IV placement. Patient does not want any testing done. Patient's blood pressure on reevaluation was 114/80. Patient was instructed to follow-up with his primary care physician in 5 to 7 days. Patient understood and was agreeable with the plan. All questions were answered. Discharge Plan Triage Chief Complaint: Hypertension ED Provider: Nolan Brady Dx/Rx/DC Orders Clinical Impression: Abdominal pain, Elevated blood pressure reading Instructions: ED Abdominal Pain Unkn Cause Male... Prescriptions: No Action buspirone 5 MG tablet 10 mg PO TID PRN (Reason: Anxiety) quetiapine 25 mg tablet 25 mg PO TID amoxicillin-pot clavulanate 875-125 mg tablet 1 tab PO BID 5 Days Qty: 10 0RF doxycycline hyclate 100 mg capsule 100 mg PO BID fluticasone propionate 50 mcg/actuation spray,suspension 1 spray INTRANASAL DAILY loratadine [Allergy Relief (loratadine)] 10 mg tablet 10 mg PO DAILY prednisone 20 mg tablet 40 mg PO DAILY 5 Days Qty: 10 0RF codeine-guaifenesin 10-100 mg/5 mL liquid 10 ml PO 4X/DAY PRN (Reason: cough) 5 Days Qty: 200 0RF Primary Care Provider: Care Physician,No Primary Referrals: Care Physician,No Primary [Primary Care Provider, Medical] Print Language: Micronesian Disposition Disposition: Home, Self Care
[2025-08-23] MEDS: Lidocaine 2% Viscous15 ML UDC 15 ML PO (17:42)
[2025-08-23 18:58] VITALS: BP 114/80; PULSE 87; RESP 18; TEMP 36.8; O2SAT 98
== END 2025-08-23 19:16 | disposition home or self-care (01) ==
PROVIDERS: Emergency Provider Emergency Medicine; Visit Provider Emergency Medicine
DX: I10 Essential (primary) hypertension (principal); R10.9 Unspecified abdominal pain; F17.210 Nicotine dependence, cigarettes, uncomplicated; F41.9 Anxiety disorder, unspecified; R11.0 Nausea; K21.9 Gastro-esophageal reflux disease without esophagitis; F17.290 Nicotine dependence, other tobacco product, uncomplicated; R51.9 Headache, unspecified
CPT/HCPCS: 99284

== ENCOUNTER 2025-09-04 19:48 | Emergency (ER) | payer MEDICARE, MEDICAID, SELFPAY ==
[2025-09-04 19:49] VITALS: BP 144/73; PULSE 100; RESP 20; TEMP 36.1; O2SAT 100; BMI 25.2
--- OUTSIDE RECORDS SUMMARY | 2025-09-04 20:17 | XMS RPT_ITS | CCD ---
Author Organization [facility] CliniSywv Care Team Providers Care Voip Network Engineer Name Role Phone MILE SANCHEZ Unavailable Unavailable [...] DR NEVAEH FRAGA MD Primary Care Physician Daltno Art DO Primary Care Provider JESSICA LOBO., [...] Dalton Art DO Primary Care Provider Stephon PATROL SUPERVISOR.FIELD ASSOCIATE, Vania Unavailable Stone PATROL SUPERVISOR.FIELD ASSOCIATE, Royer Unavailable Care Physician, No Primary Primary [...] Dr. Marco Antonio Cintron MD Emergency Provider [phone] Jaimee KILGORE, Dr. Murillo Attending Provider Nolan [...] Drug Allergy 10-04-19 17 Nausea/Vom/Navneet [facility] sources[facility] Penicillins; Translations: [PENICILLINS] Propensity to adverse reactions to drug (disorder) 07-20-20 14 Vomiting [facility] Repository (20 sources) SUMAtriptan; Translations: [SUMATRIPTAN] Drug Allergy 05-01-20 15 Other: See Comments [facility] Work Phone: (3 sources) Penicillin; Translations: [penicillins] Drug Allergy Rash [facility] (8 sources) Amoxicillin; Translations: [AMOXICILLIN (BULK)] Drug Allergy 11-23-19 15 Vomiting [facility] (17 sources) SUMAtriptan; Translations: [sumatriptan succinate] Drug Allergy 06-24-20 21 Unknown [facility] (4 sources) Sulfamethoxazole / Trimethoprim; Translations: [SULFAMETHOXAZOLE-T RIMETHOPRIM] Drug Allergy 11-19-19 24 Swelling [facility] (1 source) SUMAtriptan Drug Allergy 06-15-20 25 [facility] Repository Medications Current Medications Medication Drug [...] for headache Start Date: 06/08/17 Status: Ordered [id number] 200 actuat albuterol 0.09 mg/actuat metered dose [...] Start: 06-10-2017 take 2 tablets by mo [facility] three times daily as needed for anxiety [...] Comment on above: [facility] DAILY diphenhydrAMINE-maalox- lidocaine (BMX 1:1:1) 1:1:1 liqd (3 sources) Start: 11-19-2023 diphenhydrAMINE-maalox -lidocaine (BMX 1:1:1) 1:1:1 liqd Mix in equal amounts - 1 T every 2hrs as needed for mouth pain, Swish/swallow or expectorate. (8oz) 240 mL 11/19/2023 Active Start: 11-19-2023 diphenhydrAMIN W-mqcnyu-tukfufmsp (BMX 1:1:1) 1:1:1 liqd Mix in equal [...] Start: 09-19-2024 take 1 capsule by mo [facility] twice daily Doxycycline Monohydrate 100 mg capsule [...] Indications: Viral URI with cough Use 1 [place] in each nostril twice daily. 1 Each 10/05/2021 Active Start: 06-27-2017 take 1 dose nasal ro perry twice daily fluticasone 50 mcg/inh NASAL spray Dose = 1 spray(s), Nostril, each, BID, 0 Refill(s) Start Date: 06/27/17 Status: Ordered Comment on above: Use 1 [place] in each nostril twice daily. fluticasone 50 [...] th every 8 hours as needed. Pancrelipase, Hyb-Htnf-Kues, (CREON PO) (8 sources) Pancrelipase, Iwf-Rzxs-Chqu, (CREON PO) Take by mouth 0 Active [...] Class(es) Dates Sig (Normalized) Sig (Original) amylase 93091 unt / lipase 3000 unt / protease 9500 unt delayed release oral capsule (18 sources) Start: 06-17-2021 End: 12-25-2023 take 5416-2969 capsules by mouth three times daily Derfar-Yqohwunv-Fc ylase (Creon) 3,000-9,500- 15,000 unit Capsule,Delayed Release(Dr/Ec) [...] 05, 2013 7:43am take 1 capsule by [facility] three times daily clindamycin (CLEOCIN) 300 MG [...] on above: Take 1 capsule by mo [facility] once daily. FLUoxetine 20 mg oral capsule (6 sources) Serotonin Reuptake Inhibitor Start: 08-19-20 End: 12-15-19 take 1 capsule by mouth once daily FLUoxetine (PROZAC) 20 mg capsule Indications: Anxiety and depression Take 1 capsule by mouth once daily. 30 capsule 3 08/19/2015 12/14/2024 Discontinued Comment on above: Take 1 capsule by mo [facility] once daily. hydrOXYzine pamoate 50 mg oral [...] on above: Take 1 capsule by mo [facility] once daily. lidocaine hydrochloride 20 mg/ml mucous [...] Comment on above: Take 1 tablet by [facility] once daily. 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 He is up-to-date on tetanus. Dog is [...] he s (more content not included)... [facility] Office Visit ([facility]) -------- GILBERTO JOHNSON ([id number]) 1985 M Date Time Provider Department 04/27/25 [...] RELIEF) 50 mcg/actuation nasal spray Use 1 [place] in each nostril twice daily. - loratadine [...] Learning disabilit (more content not included)... Normal [facility] Brain/Head without Contrasto n 04-05-2025 Brain/Head without Contrast [facility] Imaging Services [address] [place] [address] Brain/Head without Contrast MR#: [id number] Acct: [id number] Name: GILBERTO JOHNSON Rep #: [id number] : 1985 M 39 From: Nabeel Foster MD PCP: Care Physician,No Primary Status: REG ER Study: Brain/Head without Contrast Date of Exam: 12/26 Exam# [id number] Ordering Dr: Noe Hermosillo DO PROCEDURE: BRAIN/HEAD [...] IMPRESSION: No acute intracranial findings Reading Location: [place] [address] CC: Dr. Chidi Hermosillo DO; No Primary Care Physician Teachers' Assistant: Signed Normal [facility] Emergency Department Summary on 04-05-2025 Emergency Department Summary [facility] Medical Records Department [address] [place] [address] Emergency Department Summary 04/05/25 MR#: [id number] Acct: [id number] Name: GILBERTO JOHNSON Rep #: [id number] : 1985 39 From: Chidi Hermosillo DO [...] 15 Psych: Cooperative, appropriate mood and affect [facility] Medical History Acute sinusitis, unspecified Pancreatitis [...] Differential navneet (more content not included)... Normal [facility] Emergency Department Summary on 03-19-2025 Emergency Department Summary [facility] Medical Records Department [address] [place] [address] Emergency Department Summary 03/19/25 MR#: [id number] Acct: [id number] Name: GILBERTO JOHNSON Rep #: [id number] : 1985 39 From: Marco Antonio Cintron [...] symptoms: Yes Recent Illness/Hospitaliz ation: No [facility]SH [facility] Medical History Acute sinusitis, unspecified Pancreatitis [...] 91 Respirat (more content not included)... Normal [facility] CNOVon 12-14-2024 [facility] Office Visit ([facility]) -------- GILBERTO JOHNSON ([id number]) 1985 M Date Time Provider Department 12/14/24 6:45 PM ALEX LANDRES [facility] During your visit today, we recorded the following information about you: Temperature Pulse Respiration Blood pressure 97.9 degrees 101/minute 16/minute 122/74 Weight 70.5 kg Alex Landers MD 12/14/2024 7:08 PM Signed [facility] Subjective Gilberto Johnson is a [...] RELIEF) 50 mcg/actuation nasal spray Use 1 [place] in each nostril twice daily. - loratadine [...] (RUANO (more content not included)... Normal [facility] Emergency Department Summary on 12-06-2024 Emergency Department Summary [facility] Medical Records Department [address] [place] [address] Emergency Department Summary 12/06/24 MR#: [id number] Acct: [id number] Name: GILBERTO JOHNSON Rep #: [id number] : 1985 39 From: Marco Antonio Cintron [...] Benign exam. (more content not included)... Normal [facility] Emergency Department Summary on 10-13-2024 Emergency Department Summary [facility] Medical Records Department [address] [place] [address] Emergency Department Summary 10/13/24 MR#: [id number] Acct: [id number] Name: GILBERTO JOHNSON Rep #: [id number] : 1985 39 From: Antwan Jaimes PCP: [...] he stopped taking his cetirizine for allergies. [facility] Medical History Acute sinusitis, unspecified Pancreatitis [...] stable condition. (more content not included)... Normal [facility] Chest PA and Lateralon 09-19 Chest PA and Lateral [facility] Imaging Services [address] [place], [place] [id number] Chest PA and Lateral MR#: [id number] Acct: [id number] Name: GILBERTO JOHNSON Rep #: [id number] : 1985 M 39 From: Derrek Shepard MD PCP: Care Physician,No Primary Status: REG ER Study: Chest PA and Lateral Date of Exam: 09/19/24 Exam# [id number] Ordering Dr: Michel Elena MD [id number] EXAM: XR CHEST, 2 VIEWS CLINICAL [...] Michel Elena MD; No Primary Care Physician Teachers' Assistant: Signed [facility] Emergency Department Summary on 09-19-2024 Emergency Department Summary [facility] Medical Records Department [address] [place] [address] Emergency Department Summary 09/19/24 MR#: [id number] Acct: [id number] Name: GILBERTO JOHNSON Rep #: [id number] : 1985 39 From: Michel Elena MD [...] toxic. Genera (more content not included)... Normal [facility] [employer] Cheston [facility] Chest [facility] Imaging Services [address] [place], [place] [id number] [facility] [employer] Chest MR#: [id number] Acct: [id number] Name: GILBERTO JOHNSON Rep #: [id number] : 1985 M 39 From: Robert Rhoades PCP: Care Physician,No Primary Status: REG ER Study: Acute Abdomen Inc Chest Date of Exam: 08/20/24 Exam# [id number] Ordering Dr: Alan Begum MD [id number] STUDY: X-RAY - ACUTE ABDOMINAL SERIES [...] Alan Begum MD; No Primary Care Physician Teachers' Assistant: Signed Normal [facility] Emergency Department Summary on 08-20-2024 Emergency Department Summary [facility] Medical Records Department [address] [place] [address] Emergency Department Summary 08/20/24 MR#: [id number] Acct: [id number] Name: GILBERTO JOHNSON Rep #: [id number] : 1985 39 From: Alan Begum MD [...] is more stool present in his colon. [facility] Medical History Acute sinusitis, unspecified Pancreatitis [...] negative n (more content not included)... Normal [facility] Urinalysis, Completeon 08-20 BACTERIA 1+ /hpf Normal None Seen [facility] Comment on above: Order Comment: DAWOOD CTOR TO SPECIFY Performed By: #### L 400.0001 #### [facility] Laboratory [address] [place], [place], [id number] RBC 0-5 SEEN Normal 0-5 [facility] Comment on above: Order Comment: DAWOOD CTOR TO SPECIFY Performed By: #### L 400.0001 #### [facility] [address] [place], [address] EPI,SQUAMOUS 0-5 SEEN Normal 0-5 [facility] Comment on above: Order Comment: DAWOOD CTOR TO SPECIFY Performed By: #### L 400.0001 #### [facility] [address] [place], [address] Mucus Ql (Urine sed) 0 SEEN Normal [facility] Comment on above: Order Comment: DAWOOD CTOR TO SPECIFY Performed By: #### L 400.0001 #### [facility] [address] [place], [address] WBC 0 SEEN Normal 0-5 [facility] Comment on above: Order Comment: COLLE CTOR TO SPECIFY Performed By: #### L 400.0001 #### [facility] [address] [place], [address] Urine Cultureon 07-05-2024 [facility] Culture exhibits no growth. Normal [facility] Comment on above: Performed By: #### M 100.2200 #### [facility] [address] [place], [address] CBC W/Diff, Automatedon Absolute Neut Normal 2.0-7.7 [facility] Comment on above: Performed By: #### L 500.4050, L100.0100 #### [facility] [address] [place], [address] HCT Normal 40-54 [facility] Comment on above: Performed By: #### L 500.4050, L100.0100 #### [facility] [address] [place], [address] HGB Normal 13.0-16.5 [facility] Comment on above: Performed By: #### L 500.4050, L100.0100 #### [facility] [address] [place], [address] MCH Normal 27.0-32.0 [facility] Comment on above: Performed By: #### L 500.4050, L100.0100 #### [facility] [address] [place], [address] MCHC Normal 32-36 [facility] Comment on above: Performed By: #### L 500.4050, L100.0100 #### [facility] [address] [place], [address] MCV Normal 80-94 [facility] Comment on above: Performed By: #### L 500.4050, L100.0100 #### [facility] [address] [place], [address] NEUT% Normal 47-70 [facility] Comment on above: Performed By: #### L 500.4050, L100.0100 #### [facility] [address] [place], [address] PLT Normal 150-450 [facility] Comment on above: Performed By: #### L 500.4050, L100.0100 #### [facility] [address] [place], [address] RBC Normal 4.6-6.2 [facility] Comment on above: Performed By: #### L 500.4050, L100.0100 #### [facility] [address] [place], [address] RDW CV Normal 11.6-14.6 [facility] Comment on above: Performed By: #### L 500.4050, L100.0100 #### [facility] [address] [place], [address] RDW SD Normal 35.1-43.9 [facility] Comment on above: Performed By: #### L 500.4050, L100.0100 #### [facility] [address] [place], [address] WBC Normal 4.4-11.0 [facility] Comment on above: Performed By: #### L 500.4050, L100.0100 #### [facility] [address] [place], [address] Comprehensive Metabolic Prof zoë 07-04-2024 ALB Normal 3.2-5.0 [facility] Comment on above: Result Comment: GREGORY ENT DISCHARGED-NO SPECIMEN REC'D Performed By: #### L 500.4050, L100.0100 #### [facility] [address] [place], [address] ALK P Normal 45-117 [facility] Comment on above: Result Comment: GREGORY ENT DISCHARGED-NO SPECIMEN REC'D Performed By: #### L 500.4050, L100.0100 #### [facility] [address] [place], [address] ALT Normal 16-61 [facility] Comment on above: Result Comment: GREGORY ENT DISCHARGED-NO SPECIMEN REC'D Performed By: #### L 500.4050, L100.0100 #### [facility] [address] [place], [address] AST Normal 15-37 [facility] Comment on above: Result Comment: GREGORY ENT DISCHARGED-NO SPECIMEN REC'D Performed By: #### L 500.4050, L100.0100 #### [facility] [address] [place], [address] BUN Normal 7-18 [facility] Comment on above: Result Comment: GREGORY ENT DISCHARGED-NO SPECIMEN REC'D Performed By: #### L 500.4050, L100.0100 #### [facility] [address] [place], [address] BUN/CRE Normal 10-20 [facility] Comment on above: Result Comment: GREGORY ENT DISCHARGED-NO SPECIMEN REC'D Performed By: #### L 500.4050, L100.0100 #### [facility] [address] [place], [address] CA,Total Normal 8.5-10.1 [facility] Comment on above: Result Comment: GREGORY ENT DISCHARGED-NO SPECIMEN REC'D Performed By: #### L 500.4050, L100.0100 #### [facility] [address] [place], [address] CL Normal 98-107 [facility] Comment on above: Result Comment: GREGORY ENT DISCHARGED-NO SPECIMEN REC'D Performed By: #### L 500.4050, L100.0100 #### [facility] [address] [place], [address] CO2 Normal 21.0-32.0 [facility] Comment on above: Result Comment: GREGORY ENT DISCHARGED-NO SPECIMEN REC'D Performed By: #### L 500.4050, L100.0100 #### [facility] [address] [place], [address] CREAT,SERUM Normal 0.70-1.30 [facility] Comment on above: Result Comment: GREGORY ENT DISCHARGED-NO SPECIMEN REC'D Performed By: #### L 500.4050, L100.0100 #### [facility] [address] [place], [address] EST GFR Normal >60 [facility] Comment on above: Result Comment: GREGORY ENT DISCHARGED-NO SPECIMEN REC'D Performed By: #### L 500.4050, L100.0100 #### [facility] [address] [place], [address] EST GFR - AA Normal >60 [facility] Comment on above: Result Comment: GREGORY ENT DISCHARGED-NO SPECIMEN REC'D Performed By: #### L 500.4050, L100.0100 #### [facility] [address] [place], [address] GAP Normal 5-15 [facility] Comment on above: Result Comment: GREGORY ENT DISCHARGED-NO SPECIMEN REC'D Performed By: #### L 500.4050, L100.0100 #### [facility] [address] [place], [address] GLU Normal 74-106 [facility] Comment on above: Result Comment: GREGORY ENT DISCHARGED-NO SPECIMEN REC'D Performed By: #### L 500.4050, L100.0100 #### [facility] [address] [place], [address] Potassium Normal 3.5-5.1 [facility] Comment on above: Result Comment: GREGORY ENT DISCHARGED-NO SPECIMEN REC'D Performed By: #### L 500.4050, L100.0100 #### [facility] [address] [place], [address] T BILI Normal 0.20-1.00 [facility] Comment on above: Result Comment: GREGORY ENT DISCHARGED-NO SPECIMEN REC'D Performed By: #### L 500.4050, L100.0100 #### [facility] [address] [place], [address] T PROT Normal 6.4-8.2 [facility] Comment on above: Result Comment: GREGORY ENT DISCHARGED-NO SPECIMEN REC'D Performed By: #### L 500.4050, L100.0100 #### [facility] [address] [place], [address] Comprehensive Metabolic Profil Normal 136-145 [facility] Comment on above: Result Comment: GREGORY ENT DISCHARGED-NO SPECIMEN REC'D Performed By: #### L 500.4050, L100.0100 #### [facility] [address] [place], [address] Emergency Department Summary on 07-04-2024 Emergency Department Summary [facility] Medical Records Department [address] [place] [address] Emergency Department Summary 07/04/24 MR#: [id number] Acct: [id number] Name: GILBERTO JOHNSON Rep #: [id number] : 1985 38 From: Nolan Brady DO [...] some subjective chills but denies any fevers. [facility] Medical History Acute sinusitis, unspecified Pancreatitis [...] viral illne (more content not included)... Normal [facility] Urinalysis, Completeon 07-04 BACTERIA RARE Normal None Seen [facility] Comment on above: Order Comment: DAWOOD CTOR TO SPECIFY Performed By: #### L 400.0001 #### [facility] [address] [place], [address] WBC >100 SEEN Normal 0-5 [facility] Comment on above: Order Comment: DAWOOD CTOR TO SPECIFY Performed By: #### L 400.0001 #### [facility] [address] [place], [address] EPI,SQUAMOUS 0 SEEN Normal 0-5 [facility] Comment on above: Order Comment: DAWOOD CTOR TO SPECIFY Performed By: #### L 400.0001 #### [facility] [address] [place], [address] Mucus Ql (Urine sed) 0 SEEN Normal [facility] Comment on above: Order Comment: DAWOOD CTOR TO SPECIFY Performed By: #### L 400.0001 #### [facility] [address] [place], [address] RBC 0 SEEN Normal 0-5 [facility] Comment on above: Order Comment: DAWOOD CTOR TO SPECIFY Performed By: #### L 400.0001 #### [facility] [address] [place], [address] Absolute lymphocyte countOrd ered By: Varun Early on 12-25-2023 Lymphocytes Auto (Unsp spec) [#/Vol] 1.00 10*3/uL 0.83-4.51 [facility] Automated lymphocyte count a s percentage of total leukocytesOrdered By: Varun Early on 12-25-2023 Lymphocytes/100 WBC Auto (Unsp spec) 5.8 % 19-41 [facility] Basophil percentageOrdered B y: Remus Sharath on 12-25-2023 Basophils/100 WBC (Bld) 0.4 % 0-1 [facility] Bilirubin [Mass/Vol] 1.10 mg/dL 0.20-1.00 [facility] Comment on above: For patients on eltr ombopag therapy, use of Dimension [place] TBIL is not recommended. Chloride [Moles/Vol] 105 mmol/L 98-107 [facility] Eosinophils/100 WBC (Bld) 0.5 % 0-5 [facility] Glucose [Mass/Vol] 91 mg/dL 74-106 [facility] Hemoglobin (Bld) [Mass/Vol] 17.9 g/dL 13.0-16. 5 [facility] Monocytes/100 WBC (Bld) 7.1 % 0-10 [facility] Neutrophils (Bld) [#/Vol] 14.8 10*3/uL 2.0-7.7 [facility] Neutrophils/100 WBC (Bld) 85.7 % 47-70 [facility] Potassium [Moles/Vol] 3.2 mmol/L 3.5-5.1 [facility] Protein [Mass/Vol] 8.4 g/dL 6.4-8.2 [facility] Sodium [Moles/Vol] 142 mmol/L 136-145 [facility] WBC (Bld) [#/Vol] 17.2 10*3/uL 4.4-11.0 [facility] Determination of erythrocyte mean corpuscular volume (MCV)Ordered By: Varun Early on 12-25-2023 MCV (RBC) [Entitic vol] 91.4 fL 80-94 [facility] Erythrocyte distribution wid th ratioOrdered By: Varun Early on 12-25-2023 Erythrocyte distribution width (RBC) [Ratio] 11.9 % 11.6-14.6 [facility] Erythrocyte distribution wid th standard deviationOrdered By: Varun Early on 12-25-2023 Erythrocyte distribution width (RBC) [Entitic vol] 39.5 fL 35.1-43.9 [facility] Hematocrit Auto (Bld) [Volum e fraction]Ordered By: Varun Early on 12-25-2023 Hematocrit (Bld) [Volume fraction] 51.2 % 40-54 [facility] Immature granulocytes/100 WB C Auto (Bld)Ordered By: Varun Early on 12-25-2023 Immature granulocytes/100 WBC (Bld) 0.500 % 0.0-0.9 [facility] Comment on above: IG% - Immature Granu locytes (promyelocytes, myelocytes and metamyelocytes) > 1% indicates that a LEFT SHIFT is Present. Laboratory - Chemistry and C hemistry - challengeOrdered By: Varun Early on 12-25-2023 Albumin/Globulin [Mass ratio] 1.2 {ratio} 0.9-2.4 [facility] ALP [Catalytic activity/Vol] 69 U/L 45-117 [facility] ALT [Catalytic activity/Vol] 23 U/L 16-61 [facility] CO2 [Moles/Vol] 32.0 mmol/L 21.0-32.0 [facility] Globulin (S) [Mass/Vol] 3.9 g/dL 2.2-4.2 [facility] Lipase [Catalytic activity/Vol] 42 U/L 13-75 [facility] Comment on above: Please note:LIPASE r evised reference range effective 23. New Lipase methodology. Expected to produce lower values than the previous assay method. NEW Reference Range: 13 - 75 U/L Urea nitrogen/Creatinine [Mass ratio] 15.9 mg/mg 10-20 [facility] Laboratory - Hematology and Cell countsOrdered By: Varun Early on 12-25-2023 MCH (RBC) [Entitic mass] 32.0 pg 27.0-32.0 [facility] MCHC (RBC) [Mass/Vol] 35.0 g/dL 32-36 [facility] Nucleated RBC/100 WBC (Bld) [Ratio] 0 % 0-5 [facility] Platelet mean volume (Bld) [Entitic vol] 10.4 fL 6.2-12.0 [facility] Platelets (Bld) [#/Vol] 201 10*3/uL 150-450 [facility] No Panel InformationOrdered By: Varun Early on 12-25-2023 Estimated Creatinine Clearance Calc 97.58 ml/min [facility] Estimated GFR (MDRD) Amer 116 mL/min >60 [facility] Comment on above: GFR Calc Estimated GFR (MDRD) Non-Af Amer 96 mL/min >60 [facility] Comment on above: Non- GFR Calc RBC Auto (Bld) [#/Vol]Ordere d By: Varun Early on 12-25-2023 RBC (Bld) [#/Vol] 5.60 10*6/uL 4.6-6.[address] [facility] Serum or plasma calcium rosalia urement (mass/volume)Ordered By: Varun Early on 12-25-2023 Calcium [Mass/Vol] 9.2 mg/dL 8.5-10.1 [facility] Serum or plasma creatinine m easurement (mass/volume)Ordered By: Varun Early on 12-25-2023 Creatinine [Mass/Vol] 0.94 mg/dL 0.70-1.30 [facility] Comment on above: The validity of the calculated GFR & GFRAA in patients over 70 years has not been determined. Clinical correlation is essential. Serum or plasma urea nitroge n measurement (mass/volume)Ordered By: Varun Early on 12-25-2023 Urea nitrogen [Mass/Vol] 15 mg/dL 7-18 [facility] Thin prep Papanicolaou smear with manual screeningOrdered By: [facility]-25-[facility]23 Thin prep Papanicolaou smear with manual screening 4.5 g/dL 3.2-5.0 [facility] Thin prep Papanicolaou smear with manual screening 21 U/L 15-37 [facility] Thin prep Papanicolaou smear with manual screening 5 5-15 [facility] Absolute lymphocyte countOrd ered By: Dr. Brady on 01-02-2023 Lymphocytes Auto (Unsp spec) [#/Vol] 1.44 10*3/uL 0.83-4.51 [facility] Basophil percentageOrdered B y: Dr. Brady on 01-02-2023 Basophils/100 WBC (Bld) 0.3 % 0-1 [facility] Chloride [Moles/Vol] 108 mmol/L 98-107 [facility] Eosinophils/100 WBC (Bld) 1.0 % 0-5 [facility] Glucose [Mass/Vol] 89 mg/dL 74-106 [facility] Neutrophils (Bld) [#/Vol] 6.5 10*3/uL 2.0-7.7 [facility] Neutrophils/100 WBC (Bld) 71.9 % 47-70 [facility] Potassium [Moles/Vol] 3.2 mmol/L 3.5-5.1 [facility] Sodium [Moles/Vol] 142 mmol/L 136-145 [facility] WBC (Bld) [#/Vol] 9.0 10*3/uL 4.4-11.0 [facility] Blood erythrocytes count (nu mber/volume)Ordered By: Dr. Brady on 01-02-2023 RBC (Bld) [#/Vol] 4.31 10*6/uL 4.6-6.2 [facility] Blood hemoglobin measurement (mass/volume)Ordered By: Dr. Brady on 01-02-2023 Hemoglobin (Bld) [Mass/Vol] 14.0 g/dL 13.0-16. 5 [facility] Blood lymphocytes/100 leukoc ytesOrdered By: Dr. Brady on 01-02-2023 Lymphocytes/100 WBC (Bld) 16.0 % 19-41 [facility] Blood monocytes/100 leukocyt esOrdered By: Dr. Brady on 01-02-2023 Monocytes/100 WBC (Bld) 10.5 % 0-10 [facility] Blood platelet mean volumeOr dered By: Dr. Brady on 01-02-2023 Platelet mean volume (Bld) [Entitic vol] 9.8 fL 6.2-12.0 [facility] Determination of erythrocyte mean corpuscular volume (MCV)Ordered By: Dr. Brady on 01-02-2023 MCV (RBC) [Entitic vol] 91.9 fL 80-94 [facility] Hematocrit Auto (Bld) [Volum e fraction]Ordered By: Dr. Brady on 01-02-2023 Hematocrit (Bld) [Volume fraction] 39.6 % 40-54 [facility] Laboratory - Chemistry and C hemistry - challengeOrdered By: Dr. Brady on 01-02-2023 CO2 [Moles/Vol] 30.0 mmol/L 21.0-32.0 [facility] Urea nitrogen/Creatinine [Mass ratio] 6.0 mg/mg 10-20 [facility] Laboratory - Hematology and Cell countsOrdered By: Dr. Brady on 01-02-2023 Erythrocyte distribution width (RBC) [Entitic vol] 40.3 fL 35.1-43.9 [facility] Erythrocyte distribution width (RBC) [Ratio] 11.9 % 11.6-14.6 [facility] Immature granulocytes/100 WBC (Bld) 0.300 % 0.0-0.9 [facility] Comment on above: IG% - Immature Granu locytes (promyelocytes, myelocytes and metamyelocytes) > 1% indicates that a LEFT SHIFT is Present. MCH (RBC) [Entitic mass] 32.5 pg 27.0-32.0 [facility] Nucleated RBC/100 WBC (Bld) [Ratio] 0 % 0-5 [facility] ([facility]BC) [Mass/Vol]Or dered By: Dr. Brady on 01-02-2023 MCHC (RBC) [Mass/Vol] 35.4 g/dL 32-36 [facility] No Panel InformationOrdered By: Dr. Brady on 01-02-2023 Estimated Creatinine Clearance Calc 93.27 ml/min [facility] Estimated GFR (MDRD) Amer 109 mL/min >60 [facility] Comment on above: GFR Calc Estimated GFR (MDRD) Non-Af Amer 90 mL/min >60 [facility] Comment on above: Non- GFR Calc Platelets bldOrdered By: Dr. Brady on 01-02-2023 Platelets (Bld) [#/Vol] 147 10*3/uL 150-450 [facility] Serum or plasma calcium rosalia urement (mass/volume)Ordered By: Dr. Brady on 01-02-2023 Calcium [Mass/Vol] 8.8 mg/dL 8.5-10.1 [facility] Serum or plasma creatinine m easurement (mass/volume)Ordered By: Dr. Brady on 01-02-2023 Creatinine [Mass/Vol] 1.00 mg/dL 0.70-1.30 [facility] Comment on above: The validity of the calculated GFR & GFRAA in patients over 70 years has not been determined. Clinical correlation is essential. Serum or plasma urea nitroge n measurement (mass/volume)Ordered By: Dr. Brady on 01-02-2023 Urea nitrogen [Mass/Vol] 6 mg/dL 7-18 [facility] Thin prep Papanicolaou smear with manual screeningOrdered By: Dr. Brady on 01-02-2023 Thin prep Papanicolaou smear with manual screening 4 5-15 [facility] Throat Streptococcus pyogene s antigen detection by immunofluorescenceOrdered By: Dr. Begum on 10-11-2022 S. pyogenes Ag IF Ql (Throat) [facility] STREPAon 10-03-2022 Group A Strep PCR Negative Normal Negative [facility] ([place]) Comment on above: Performed By: #### S TREPA #### Devora [address] [address] Group A Strep PCR Int Normal Aul [facility] ([place]) Comment on above: Result Comment: Nega tive [...] By: #### S PRINCESS #### Devora [address] [address] LABORATORYOrdered By: Modesto Tam on 10-02-2022 S. [...] 09-11-2022 S. pyogenes Ag IF Ql (Throat) [facility] Absolute lymphocyte countOrd ered By: Dr. Pena on 09-03-2022 Lymphocytes Auto (Unsp spec) [#/Vol] 0.50 10*3/uL 0.83-4.51 [facility] Basophil percentageOrdered B y: Dr. Pena on 09-03-2022 Basophils/100 WBC (Bld) 0.3 % 0-1 [facility] Bilirubin [Mass/Vol] 1.60 mg/dL 0.20-1.00 [facility] Comment on above: For patients on eltr ombopag therapy, use of Dimension [place]vert TBIL is not recommended. Chloride [Moles/Vol] 109 mmol/L 98-107 [facility] Eosinophils/100 WBC (Bld) 0.0 % 0-5 [facility] Glucose [Mass/Vol] 100 mg/dL 74-106 [facility] Comment on above: Fasting Glucose resu lt from 100 to 125 mg/dL suggests IMPAIRED HOMEOSTASIS per A.D.A. criteria. Neutrophils (Bld) [#/Vol] 10.0 10*3/uL 2.0-7.7 [facility] Neutrophils/100 WBC (Bld) 89.3 % 47-70 [facility] Potassium [Moles/Vol] 3.7 mmol/L 3.5-5.1 [facility] Protein [Mass/Vol] 7.4 g/dL 6.4-8.2 [facility] Sodium [Moles/Vol] 144 mmol/L 136-145 [facility] WBC (Bld) [#/Vol] 11.2 10*3/uL 4.4-11.0 [facility] Blood erythrocytes count (nu mber/volume)Ordered By: Dr. Pena on 09-03-2022 RBC (Bld) [#/Vol] 5.24 10*6/uL 4.6-6.2 [facility] Blood hemoglobin measurement (mass/volume)Ordered By: Dr. Pena on 09-03-2022 Hemoglobin (Bld) [Mass/Vol] 16.8 g/dL 13.0-16. 5 [facility] Blood lymphocytes/100 leukoc ytesOrdered By: Dr. Pena on 09-03-2022 Lymphocytes/100 WBC (Bld) 4.5 % 19-41 [facility] Blood manual differential co mment interpretation (narrative result)Ordered By: Dr. Pena on 09-03-2022 Manual differential comment Vincent (Bld) [Interp] SEE COMMENT [facility] Comment on above: LYMPHOPENIA NOTED Blood monocytes/100 leukocyt esOrdered By: [address] Pena on 09-03-2022 Monocytes/100 WBC (Bld) 5.5 % 0-10 [facility] Blood platelet adequacy dete ction by light microscopyOrdered By: Dr. Pena on 09-03-2022 Platelets LM Ql (Bld) ADEQUATE ADEQ [facility] Blood platelet mean volumeOr dered By: Dr. Pena on 09-03-2022 Platelet mean volume (Bld) [Entitic vol] 10.5 fL 6.2-12.0 [facility] Determination of erythrocyte mean corpuscular volume (MCV)Ordered By: Dr. Pena on 09-03-2022 MCV (RBC) [Entitic vol] 90.5 fL 80-94 [facility] Hematocrit Auto (Bld) [Volum e fraction]Ordered By: Dr. Pena on 09-03-2022 Hematocrit (Bld) [Volume fraction] 47.4 % 40-54 [facility] Laboratory - Chemistry and C hemistry - challengeOrdered By: Dr. Pena on 09-03-2022 ALP [Catalytic activity/Vol] 67 U/L 45-117 [facility] ALT [Catalytic activity/Vol] 24 U/L 16-61 [facility] CO2 [Moles/Vol] 30.0 mmol/L 21.0-32.0 [facility] Globulin (S) [Mass/Vol] 3.2 g/dL 2.2-4.2 [facility] Lipase [Catalytic activity/Vol] 50 U/L 73-393 [facility] Urea nitrogen/Creatinine [Mass ratio] 9.8 mg/mg 10-20 [facility] Laboratory - Hematology and Cell countsOrdered By: Dr. Pena on 09-03-2022 Anisocytosis Ql (Bld) RARE [facility] Erythrocyte distribution width (RBC) [Entitic vol] 40.6 fL 35.1-43.9 [facility] Erythrocyte distribution width (RBC) [Ratio] 12.5 % 11.6-14.6 [facility] Immature granulocytes/100 WBC (Bld) 0.400 % 0.0-0.9 [facility] Comment on above: IG% - Immature Granu locytes (promyelocytes, myelocytes and metamyelocytes) > 1% indicates that a LEFT SHIFT is Present. MCH (RBC) [Entitic mass] 32.1 pg 27.0-32.0 [facility] Nucleated RBC/100 WBC (Bld) [Ratio] 0 % 0-5 [facility] MCHC Auto (RBC) [Mass/Vol]Or dered By: Dr. Pena on 09-03-2022 MCHC (RBC) [Mass/Vol] 35.4 g/dL 32-36 [facility] Macrocytes detectionOrdered By: Dr. Pena on 09-03-2022 Macrocytes Ql (Bld) RARE [facility] No Panel InformationOrdered By: Dr. Pena on 09-03-2022 Estimated Creatinine Clearance Calc 108.90 ml/min [facility] Estimated GFR (MDRD) Amer 138 mL/min >60 [facility] Comment on above: GFR Calc Estimated GFR (MDRD) Non-Af Amer 114 mL/min >60 [facility] Comment on above: Non- GFR Calc Ethyl Alcohol Level 5.0 mg/dL [facility] Comment on above: The serum:whole bloo d ethanol ratio is approximately 1.14and varies slightly with hematocrit. Medical Alcohol reference interval and critical value innon-tolerant individuals; 50 - 100 Impairment 100 Intoxication 100 - 250 Severe Poisoning 250 - 400 Deep/possible fatal coma Influenza Types A,B Direct FA (JESS) [facility] Platelets bldOrdered By: Dr. Pena on 09-03-2022 Platelets (Bld) [#/Vol] 151 10*3/uL 150-450 [facility] RBC morphologyOrdered By: Dr Dick Pena on 09-03-2022 RBC morphology finding Nom (Bld) N CHROM NORMAL NORM C&C [facility] Serum or plasma albumin rosalia urement (mass/volume)Ordered By: Dr. Pena on 09-03-2022 Albumin [Mass/Vol] 4.2 g/dL 3.2-5.0 [facility] Serum or plasma albumin/glob ulin mass ratioOrdered By: Dr. Pena on 09-03-2022 Albumin/Globulin [Mass ratio] 1.3 {ratio} 0.9-2.4 [facility] Serum or plasma calcium rosalia urement (mass/volume)Ordered By: Dr. Pena on 09-03-2022 Calcium [Mass/Vol] 8.8 mg/dL 8.5-10.1 [facility] Serum or plasma creatinine m easurement (mass/volume)Ordered By: Dr. Pena on 09-03-2022 Creatinine [Mass/Vol] 0.82 mg/dL 0.70-1.30 [facility] Comment on above: The validity of the calculated GFR & GFRAA in patients over 70 years has not been determined. Clinical correlation is essential. Serum or plasma urea nitroge n measurement (mass/volume)Ordered By: Dr. Pena on 09-03-2022 Urea nitrogen [Mass/Vol] 8 mg/dL 7-18 [facility] Thin prep Papanicolaou smear with manual screeningOrdered By: Dr. Pena on 09-03-2022 Thin prep Papanicolaou smear with manual screening 16 U/L 15-37 [facility] Thin prep Papanicolaou smear with manual screening 5 5-15 [facility] Basophil percentageOrdered B y: Dr. Richards on 08-20-2022 Basophil percentage 0 SEEN /hpf 0-5 [facility] Bilirubin Test strip Ql (U)O rdered By: Dr. Richards on 08-20-2022 Bilirubin Ql (U) Negative Negative [facility] Ketones Test strip Ql (U)Ord ered By: Dr. Richards on 08-20-2022 Ketones Ql (U) Negative Negative [facility] Mucus LM Ql (Urine sed)Order ed By: Dr. Richards on 08-20-2022 Mucus Ql (Urine sed) 0 SEEN /hpf [facility] Nitrite Test strip Ql (U)Ord ered By: Dr. Richards on 08-20-2022 Nitrite Ql (U) Negative Negative [facility] Protein Test strip Ql (U)Ord ered By: Dr. Richards on 08-20-2022 Protein Ql (U) Negative Negative [facility] Squamous epithelial cells de tection in urine sediment by light microscopyOrdered By: Dr. Richards on 08-20-2022 Epithelial cells.squamous LM Ql (Urine sed) 0 SEEN /hpf 0-5 [facility] Urine blood detectionOrdered By: Dr. Richards on 08-20-2022 RBC Ql (U) Negative Negative [facility] RBC Ql (U) 0 SEEN /hpf 0-5 [facility] Urine clarityOrdered By: Dr. Richards on 08-20-2022 Clarity (U) Clear Clear [facility] Urine color determinationOrd ered By: Dr. Richards on 08-20-2022 Color (U) Straw Yellow [facility] Urine glucose detectionOrder ed By: Dr. Richards on 08-20-2022 Glucose Ql (U) Normal mg/dl Normal [facility] Urine leukocyte esterase det ection by dipstickOrdered By: Dr. Richards on 08-20-2022 Leukocyte esterase Test strip Ql (U) Negative Negative [facility] Urine pHOrdered By: Dr. Kapil cha on 08-20-2022 pH (U) 7.0 [pH] 5.0 - 8.0 [facility] Urine sediment bacteria coun t by microscopy (number/high power field)Ordered By: Dr. Richards on 08-20-2022 Bacteria LM.HPF (Urine sed) [#/Area] 0 /[HPF] None Seen [facility] Urine specific gravity measu rementOrdered By: Dr. Richards on 08-20-2022 Specific gravity (U) [Rel density] 1.010 1.002-1.030 [facility] Urobilinogen Auto test strip Ql (U)Ordered By: Dr. Richards on 08-20-2022 Urobilinogen Ql (U) Normal mg/dl Normal [facility] Absolute lymphocyte counton 07-30-2022 Lymphocytes Auto (Unsp spec) [#/Vol] 0.88 10*3/uL 0.83-4.51 [facility] Work Phone: Basophil percentageon 2021 Basophils/100 WBC (Bld) 0.1 % 0-1 [facility] Work Phone: Bilirubin [Mass/Vol] 1.70 mg/dL 0.20-1.00 [facility] Work Phone: Comment on above: For patients on eltr ombopag therapy, use of Dimension [place] TBIL is not recommended. Chloride [Moles/Vol] 106 mmol/L 98-107 [facility] Work Phone: Eosinophils/100 WBC (Bld) 0.1 % 0-5 [facility] Work Phone: Glucose [Mass/Vol] 109 mg/dL 74-106 [facility] Work Phone: Comment on above: Fasting Glucose resu lt from 100 to 125 mg/dL suggests IMPAIRED HOMEOSTASIS per A.D.A. criteria. Neutrophils (Bld) [#/Vol] 5.1 10*3/uL 2.0-7.7 [facility] Work Phone: Neutrophils/100 WBC (Bld) 75.1 % 47-70 [facility] Work Phone: Potassium [Moles/Vol] 3.8 mmol/L 3.5-5.1 [facility] Work Phone: Protein [Mass/Vol] 7.4 g/dL 6.4-8.2 [facility] Work Phone: Sodium [Moles/Vol] 137 mmol/L 136-145 [facility] Work Phone: WBC (Bld) [#/Vol] 6.8 10*3/uL 4.4-11.0 [facility] Work Phone: Blood erythrocytes count (nu mber/volume)on 07-30-2022 RBC (Bld) [#/Vol] 4.96 10*6/uL 4.6-6.2 [facility] Work Phone: Blood hemoglobin measurement (mass/volume)on 07-30-2022 Hemoglobin (Bld) [Mass/Vol] 16.2 g/dL 13.0-16. 5 [facility] Work Phone: Blood lymphocytes/100 leukoc yteson 07-30-2022 Lymphocytes/100 WBC (Bld) 12.9 % 19-41 [facility] Work Phone: Blood monocytes/100 leukocyt eson 07-30-2022 Monocytes/100 WBC (Bld) 11.4 % 0-10 [facility] Work Phone: Blood platelet mean volumeon 07-30-2022 Platelet mean volume (Bld) [Entitic vol] 10.2 fL 6.2-12.0 [facility] Work Phone: Determination of erythrocyte mean corpuscular volume (MCV)on 07-30-2022 MCV (RBC) [Entitic vol] 87.7 fL 80-94 [facility] Work Phone: Hematocrit Auto (Bld) [Volum e fraction]on 07-30-2022 Hematocrit (Bld) [Volume fraction] 43.5 % 40-54 [facility] Work Phone: Laboratory - Chemistry and C hemistry - challengeon 07-30-2022 ALP [Catalytic activity/Vol] 66 U/L 45-117 [facility] Work Phone: ALT [Catalytic activity/Vol] 22 U/L 16-61 [facility] Work Phone: CO2 [Moles/Vol] 26.0 mmol/L 21.0-32.0 [facility] Work Phone: Globulin (S) [Mass/Vol] 3.3 g/dL 2.2-4.2 [facility] Work Phone: Lipase [Catalytic activity/Vol] 54 U/L 73-393 [facility] Work Phone: Urea nitrogen/Creatinine [Mass ratio] 9.2 mg/mg 10-20 [facility] Work Phone: Laboratory - Hematology and Cell countson 07-30-2022 Erythrocyte distribution width (RBC) [Entitic vol] 37.7 fL 35.1-43.9 [facility] Work Phone: Erythrocyte distribution width (RBC) [Ratio] 11.8 % 11.6-14.6 [facility] Work Phone: Immature granulocytes/100 WBC (Bld) 0.400 % 0.0-0.9 [facility] Work Phone: [phone] Comment on above: IG% - Immature Granu locytes (promyelocytes, myelocytes and metamyelocytes) > 1% indicates that a LEFT SHIFT is Present. MCH (RBC) [Entitic mass] 32.7 pg 27.0-32.0 [facility] Work Phone: [phone] Nucleated RBC/100 WBC (Bld) [Ratio] 0 % 0-5 [facility] Work Phone: [phone] MCHC Auto (RBC) [Mass/Vol]on 07-30-2022 MCHC (RBC) [Mass/Vol] 37.2 g/dL 32-36 [facility] Work Phone: [phone] No Panel Informationon 07-30 Estimated Creatinine Clearance Calc 82.55 ml/min [facility] Work Phone: [phone] Estimated GFR (MDRD) Amer 99 mL/min >60 [facility] Work Phone: [phone] Comment on above: GFR Calc Estimated GFR (MDRD) Non-Af Amer 82 mL/min >60 [facility] Work Phone: [phone] Comment on above: Non- GFR Calc Platelets bldon 07-30-2022 Platelets (Bld) [#/Vol] 166 10*3/uL 150-450 [facility] Work Phone: [phone] Serum or plasma albumin rosalia urement (mass/volume)on 07-30-2022 Albumin [Mass/Vol] 4.1 g/dL 3.2-5.0 [facility] Work Phone: [phone] Serum or plasma albumin/glob ulin mass ratioon 07-30-2022 Albumin/Globulin [Mass ratio] 1.2 {ratio} 0.9-2.4 [facility] Work Phone: [phone] Serum or plasma calcium rosalia urement (mass/volume)on 07-30-2022 Calcium [Mass/Vol] 9.1 mg/dL 8.5-10.1 [facility] Work Phone: Serum or plasma creatinine m easurement (mass/volume)on 07-30-2022 Creatinine [Mass/Vol] 1.09 mg/dL 0.70-1.30 [facility] Work Phone: Comment on above: The validity of the calculated GFR & GFRAA in patients over 70 years has not been determined. Clinical correlation is essential. Serum or plasma urea nitroge n measurement (mass/volume)on 07-30-2022 Urea nitrogen [Mass/Vol] 10 mg/dL 7-18 [facility] Work Phone: Thin prep Papanicolaou smear with manual screeningon 07-30-2022 Thin prep Papanicolaou smear with manual screening 24 U/L 15-37 [facility] Work Phone: [phone] Thin prep Papanicolaou smear with manual screening 5 5-15 [facility] Work Phone: Absolute lymphocyte counton 07-29-2022 Lymphocytes Auto (Unsp spec) [#/Vol] 0.96 10*3/uL 0.83-4.51 [facility] Work Phone: Basophil percentageon 2021 Basophils/100 WBC (Bld) 0.3 % 0-1 [facility] Work Phone: Bilirubin [Mass/Vol] 1.60 mg/dL 0.20-1.00 [facility] Work Phone: Comment on above: For patients on eltr ombopag therapy, use of Dimension [place] TBIL is not recommended. Chloride [Moles/Vol] 111 mmol/L 98-107 [facility] Work Phone: Eosinophils/100 WBC (Bld) 0.2 % 0-5 [facility] Work Phone: Glucose [Mass/Vol] 92 mg/dL 74-106 [facility] Work Phone: Neutrophils (Bld) [#/Vol] 10.1 10*3/uL 2.0-7.7 [facility] Work Phone: Neutrophils/100 WBC (Bld) 83.7 % 47-70 [facility] Work Phone: Potassium [Moles/Vol] 3.8 mmol/L 3.5-5.1 [facility] Work [facility]: Protein [Mass/Vol] 7.7 g/dL 6.4-8.2 [facility] Work Phone: Sodium [Moles/Vol] 142 mmol/L 136-145 [facility]: WBC (Bld) [#/Vol] 12.1 10*3/uL 4.4-11.0 [facility] Work Phone: Blood erythrocytes count (nu mber/volume)on 07-29-2022 RBC (Bld) [#/Vol] 5.05 10*6/uL 4.6-6.2 [facility] Work Phone: Blood hemoglobin measurement (mass/volume)on 07-29-2022 Hemoglobin (Bld) [Mass/Vol] 16.6 g/dL 13.0-16. 5 [facility] Work Phone: Blood lymphocytes/100 leukoc yteson 07-29-2022 Lymphocytes/100 WBC (Bld) 7.9 % 19-41 [facility] Work Phone: Blood monocytes/100 leukocyt eson 07-29-2022 Monocytes/100 WBC (Bld) 7.4 % 0-10 [facility] Work Phone: Blood platelet mean volumeon 07-29-2022 Platelet mean volume (Bld) [Entitic vol] 10.0 fL 6.2-12.0 [facility] Work Phone: Determination of erythrocyte mean corpuscular volume (MCV)on 07-29-2022 MCV (RBC) [Entitic vol] 88.1 fL 80-94 [facility] Work Phone: Hematocrit Auto (Bld) [Volum e fraction]on 07-29-2022 Hematocrit (Bld) [Volume fraction] 44.5 % 40-54 [facility] Work Phone: [phone] Laboratory - Chemistry and C hemistry - challengeon 07-29-2022 ALP [Catalytic activity/Vol] 70 U/L 45-117 [facility] Work Phone: [phone] ALT [Catalytic activity/Vol] 26 U/L 16-61 [facility] Work Phone: [phone] CO2 [Moles/Vol] 24.0 mmol/L 21.0-32.0 [facility] Work Phone: [phone] Globulin (S) [Mass/Vol] 3.3 g/dL 2.2-4.2 [facility] Work Phone: [phone] Lipase [Catalytic activity/Vol] 73 U/L 73-393 [facility] Work Phone: [phone] Urea nitrogen/Creatinine [Mass ratio] 6.3 mg/mg 10-20 [facility] Work Phone: [phone] Laboratory - Hematology and Cell countson 07-29-2022 Erythrocyte distribution width (RBC) [Entitic vol] 37.4 fL 35.1-43.9 [facility] Work Phone: [phone] Erythrocyte distribution width (RBC) [Ratio] 11.8 % 11.6-14.6 [facility] Work Phone: [phone] Immature granulocytes/100 WBC (Bld) 0.500 % 0.0-0.9 [facility] Work Phone: [phone] Comment on above: IG% - Immature Granu locytes (promyelocytes, myelocytes and metamyelocytes) > 1% indicates that a LEFT SHIFT is Present. MCH (RBC) [Entitic mass] 32.9 pg 27.0-32.0 [facility] Work Phone: [phone] Nucleated RBC/100 WBC (Bld) [Ratio] 0 % 0-5 [facility] Work Phone: [phone] MCHC Auto (RBC) [Mass/Vol]on 07-29-2022 MCHC (RBC) [Mass/Vol] 37.3 g/dL 32-36 [facility] Work Phone: No Panel Informationon 07-29 Estimated Creatinine Clearance Calc 91.48 ml/min [facility] Work Phone: Estimated GFR (MDRD) Amer 117 mL/min >60 [facility] Work Phone: Comment on above: GFR Calc Estimated GFR (MDRD) Non-Af Amer 96 mL/min >60 [facility] Work Phone: Comment on above: Non- GFR Calc Platelets bldon 07-29-2022 Platelets (Bld) [#/Vol] 176 10*3/uL 150-450 [facility] Work Phone: Serum or plasma albumin rosalia urement (mass/volume)on 07-29-2022 Albumin [Mass/Vol] 4.4 g/dL 3.2-5.0 [facility] Work Phone: Serum or plasma albumin/glob ulin mass ratioon 07-29-2022 Albumin/Globulin [Mass ratio] 1.3 {ratio} 0.9-2.4 [facility] Work Phone: Serum or plasma calcium rosalia urement (mass/volume)on 07-29-2022 Calcium [Mass/Vol] 9.1 mg/dL 8.5-10.1 [facility] Work Phone: Serum or plasma creatinine m easurement (mass/volume)on 07-29-2022 Creatinine [Mass/Vol] 0.94 mg/dL 0.70-1.30 [facility] Work Phone: Comment on above: The validity of the calculated GFR & GFRAA in patients over 70 years has not been determined. Clinical correlation is essential. Serum or plasma urea nitroge n measurement (mass/volume)on 07-29-2022 Urea nitrogen [Mass/Vol] 6 mg/dL 7-18 [facility] Work Phone: Thin prep Papanicolaou smear with manual screeningon 07-29-2022 Thin prep Papanicolaou smear with manual screening 23 U/L 15-37 [facility] Work Phone: Thin prep Papanicolaou smear with manual screening 7 5-15 [facility] Work Phone: CULTURE URINEon 05-04-2022 CULTURE URINE CULTURE URINE --> Status: F No growth (<1,000 CFU/ml). Normal [facility] Comment on above: Performed By: #### C /UR ####[facility] [place] [address] Chlamydia and GC PCR Panelon 05-03-2022 Chlamydia and GC PCR Panel Chlamydia trachomatis PCR --> Status: F NOT Detected Chlamydia trachomatis Nucleic Acid NOT Detected by DNA Amplification using the CepWipsterid System. Culture is the only recommended test [...] as suspected child abuse or molestation. Normal [facility] Comment on above: Performed By: #### C TNGP ####[facility] [place] [address] Complete Urinalysison 2021 Bacteria Few (1-5) Abnormal Negative [facility] Comment on above: Result Comment: . Performed By: #### C UA2 #### [facility] [address] [place] [address] RBC, Urine 11 - 25 Abnormal 0-2 [facility] Comment on above: Result Comment: . Performed By: #### C UA2 #### [facility] [address] [place] [address] Squamous Epithelial 3 - 5 Normal 3-5 [facility] Comment on above: Result Comment: . Performed By: #### C UA2 #### [facility] [address] [place] [address] VOLUME, URINE 12 ml Normal [facility] Comment on above: Result Comment: . Performed By: #### C UA2 #### [facility] [address] [place] [address] WBC, Urine 51 - 100 Abnormal 0-5 [facility] Comment on above: Result Comment: . Performed By: #### C UA2 #### [facility] [address] [place] [address] Appearance (U) Turbid Abnormal Clear [facility] Comment on above: Result Comment: . Performed By: #### C UA2 #### [facility] [address] [place] [address] Bilirubin,Urine Negative Normal Negative [facility] Comment on above: Result Comment: . Performed By: #### C UA2 #### [facility] [address] [place] [address] Color (U) LIGHT BROWN Abnormal Lt. Yellow [facility] Comment on above: Result Comment: . Performed By: #### C UA2 #### [facility] [address] [place] [address] Glucose Ql (U) Normal Normal Normal (<70) [facility] Comment on above: Result Comment: . Performed By: #### C UA2 #### [facility] [address] [place] [address] Ketone,Urine Negative Normal Negative [facility] Comment on above: Result Comment: . Performed By: #### C UA2 #### [facility] [address] [place] [address] Leukocytes,Urine 500 Analy/uL Abnormal Negative [facility] Comment on above: Result Comment: . Performed By: #### C UA2 #### [facility] [address] [place] [address] Nitrites,Urine Negative Normal Negative [facility] Comment on above: Result Comment: . Performed By: #### C UA2 #### [facility] [address] [place] [address] Occult Blood,Urine > 1.0 Abnormal Negative [facility] Comment on above: Result Comment: . Performed By: #### C UA2 #### [facility] [address] [place] [address] pH,Urine 6.0 Normal 5.0-8.0 [facility] Comment on above: Result Comment: . Performed By: #### C UA2 #### [facility] [address] [place] [address] Protein (U) [Mass/Vol] 70 mg/dL Abnormal Negative [facility] Comment on above: Result Comment: . Performed By: #### C UA2 #### [facility] [address] [place] [address] Specific Reagan,Urine < 1.005 Abnormal 1.005 - 1.030 [facility] Comment on above: Result Comment: . Performed By: #### C UA2 #### [facility] [address] [place] [address] Urobilinogen,Urine Normal Normal Normal (0-1) [facility] Comment on above: Result Comment: . Performed By: #### C UA2 #### [facility] [address] [place] [address] Urinalysison 05-02-2022 Appearance (U) Turbid Abnormal Clear [...] /[HPF] [facility] Comment on above: . Specific Reagan, Urine Abnormal S [facility] Comment on above: . Squam Epithel, UA 3-5 3 - 5 /[HPF] [facility] Comment on above: . Urobilinogen, Urine Normal Normal (0-1) mg/dL [facility] Comment on above: . Volume 12 ml [facility] Comment on above: . WBC, UA /[HPF] Abnormal 0 - 5 /[HPF] [facility] Comment on above: . [facility], [address] , [place], [place] [id number] [place] [address] LAB [facility] CULTURE URINEon 03-31-2022 CULTURE URINE CULTURE URINE --> Status: F Insignificant growth based on current clinical guidelines. Normal [facility] Comment on above: Performed By: #### C /UR ####[facility] [id number] [place] [address] CBC with Auto Differentialon 03-28-2022 Absolute Baso [...] [Mass/Vol] 15.4 g/dL 13.0 - 18.0 g/dL [facility] Interpretation and review of laboratory results Abnormal [...] [#/Vol] 6.9 10*3/uL 3.6 - 10.7 10*3/uL [facility] Test Performed by [facility], [address] [place] [address]. [address] LAB [facility] CT Abdomen and Pelvis W cont rast Kristen 03-28-2022 Patient Name: GILBERTO JOHNSON Computed Tomography ACCESSION EXAM DATE/TIME PROCEDURE ORDERING PROVIDER [id number] 03/28/2022 15:[address] Abdomen/Pelvis w/ IV MD ULICES, PEYTON Beltran Contrast (IV Onl CPT code 98278 Q9967 Reason For Exam (CT Abdomen/Pelvis w/ [...] JEFFREY Transcribed Date and Time: 03/28/2022 3:43 [facility] Liam Mcdonough MD - 03/28/2022 Patient Name: GILBERTO JOHNSON Computed Tomography ACCESSION EXAM DATE/TIME PROCEDURE ORDERING PROVIDER [id number] 03/28/2022 15:[address] Abdomen/Pelvis w/ IV MD ELENA DOUGALAS R. Contrast (IV Onl CPT code 17904 Q9967 Reason For Exam (CT Abdomen/Pelvis w/ [...] Tomography ACCESSION EXAM DATE/TIME PROCEDURE ORDERING PROVIDER [id number] 03/28/2022 15:[address] Abdomen/Pelvis w/ IV MD ELENA DOUGALAS R. Contrast (IV Onl CPT code 30422 Q9967 Reason For Exam (CT Abdomen/Pelvis w/ [...] Transcribed Date and Time: 03/28/2022 3:43 Normal [facility] Comp Metabolic Panelon 03-28 ALP [Catalytic activity/Vol] 55 U/L Normal 38-126 [facility] Comment on above: Performed By: #### H EMDF, LIPA4, CMP3 ####[address] [place] [address] ALT [Catalytic activity/Vol] 14 U/L Normal 0-49 [facility] Comment on above: Result Comment: The ALT test is performed by an updated assay method. Please note that the reference intervals have been changed and are now sex specific. Performed By: #### H EMDF, LIPA4, CMP3 ####[place] [address] [place] [address] Calcium [Mass/Vol] 9.4 mg/dL Normal 8.4-10.4 [facility] Comment on above: Performed By: #### H EMDF, LIPA4, CMP3 ####[place] [address] [place] [address] Glucose [Mass/Vol] 87 mg/dL Normal 70-100 [facility] Comment on above: Performed By: #### H EMDF, LIPA4, CMP3 ####[place] [address] [place] [address] Protein [Mass/Vol] 7.6 g/dL Normal 6.3-8.2 [facility] Comment on above: Performed By: #### H EMDSohail, LIPA4, CMP3 ####[facility] [place] [address] Urea nitrogen [Mass/Vol] 7 mg/dL Normal 7-17 [facility] Comment on above: Performed By: #### H EMDSohail, LIPA4, CMP3 ####[facility] [place] [address] Anion gap [Moles/Vol] 7 mmol/L Normal 3-13 [facility] Comment on above: Performed By: #### H GISEL, LIPA4, CMP3 ####[facility] [place] [address] AST [Catalytic activity/Vol] 35 U/L Normal 15-46 [facility] Comment on above: Performed By: #### H GISEL, LIPA4, CMP3 ####[facility] [place] [address] Bilirubin [Mass/Vol] 1.5 mg/dL High 0.2-1.3 [facility] Comment on above: Performed By: #### H EMDSohail, LIPA4, CMP3 ####[facility] [place] [address] CO2 [Moles/Vol] 32 mmol/L High 22-30 [facility] Comment on above: Performed By: #### H EMDF, LIPA4, CMP3 ####[facility] [place] [address] Creatinine [Mass/Vol] 0.84 mg/dL Normal 0.52-1.25 [facility] Comment on above: Performed By: #### H EMDF, LIPA4, CMP3 ####[facility] [place] [address] eGFR OTHER > 90.0 Normal >60 [facility] Comment on above: Result Comment: [...] tubular creatinine secretion. Performed By: #### H TMAEKA BATRESA4, CMP3 ####[facility] [place] [address] GFR/1.73 sq M.predicted among blacks MDRD (S/P/Bld) [Vol rate/Area] mL/min/{1.73_m2} Normal >60 [facility] Comment on above: Performed By: #### H EMDF, LIPA4, CMP3 ####[facility] [place] [address] Potassium [Moles/Vol] 3.5 mmol/L Normal 3.5-5.1 [facility] Comment on above: Performed By: #### H EMDF, LIPA4, CMP3 ####[facility] [place] [address] Sodium [Moles/Vol] 140 mmol/L Normal 135-145 [facility] Comment on above: Performed By: #### H EMDF, LIPA4, CMP3 ####[facility] [place] [address] Albumin [Mass/Vol] 4.5 g/dL Normal 3.5-5.0 [facility] Comment on above: Performed By: #### H EMDF, LIPA4, CMP3 ####[facility] [place] [address] Chloride [Moles/Vol] 101 mmol/L Normal 98-107 [facility] Comment on above: Performed By: #### H EMDF, LIPA4, CMP3 ####[facility] [place] [address] Complete Urinalysison 2021 Appearance (U) Clear Normal Clear [facility] Comment on above: Result Comment: . Performed By: #### C UA2 #### [facility] [address] [place] [address] Bilirubin,Urine Negative Normal Negative [facility] Comment on above: Result Comment: . Performed By: #### C UA2 #### [facility] [address] [place] [address] Color (U) COLORLESS Normal Lt. Yellow [facility] Comment on above: Result Comment: . Performed By: #### C UA2 #### [facility] [address] [place] [address] Glucose Ql (U) Normal Normal Normal (<70) [facility] Comment on above: Result Comment: . Performed By: #### C UA2 #### [facility] [address] [place] [address] Ketone,Urine Negative Normal Negative [facility] Comment on above: Result Comment: . Performed By: #### C UA2 #### [facility] [address] [place] [address] Leukocytes,Urine Negative Normal Negative [facility] Comment on above: Result Comment: . Performed By: #### C UA2 #### [facility] [address] [place] [address] Nitrites,Urine Negative Normal Negative [facility] Comment on above: Result Comment: . Performed By: #### C UA2 #### [facility] [address] [place] [address] Occult Blood,Urine Negative Normal Negative [facility] Comment on above: Result Comment: . Performed By: #### C UA2 #### [facility] [address] [place] [address] pH,Urine 7.5 Normal 5.0-8.0 [facility] Comment on above: Result Comment: . Performed By: #### C UA2 #### [facility] [address] [place] [address] Specific Reagan,Urine < 1.005 Abnormal 1.005 - 1.030 [facility] Comment on above: Result Comment: . Performed By: #### C UA2 #### [facility] [address] [place] [address] Total Protein,Urine Negative Normal Negative [facility] Comment on above: Result Comment: . Performed By: #### C UA2 #### [facility] [address] [place] [address] Urobilinogen,Urine Normal Normal Normal (0-1) [facility] Comment on above: Result Comment: . Performed By: #### C UA2 #### [facility] [address] [place] [address] Comprehensive Metabolic [facility] 03-28-2022 Albumin [Mass/Vol] 4.5 g/dL 3.5 - 5.0 g/dL [facility] ALP (Bld) [Catalytic activity/Vol] 55 U/L 38 - 126 U/L [facility] ALT [Catalytic activity/Vol] 14 U/L 0 - 49 U/L [facility] Comment on above: The ALT test is [...] - 1.25 mg/dL [facility] EGFR IF NonAfrican Thai >90.0 >60 mL/m in [facility] Comment on [...] fraction] 7.6 g/dL 6.3 - 8.2 g/dL [facility] GFR/1.73 sq M.predicted among blacks MDRD (S/P/Bld) [Vol rate/Area] mL/min/{1.73_m2} >60 mL/min [facility] Glucose [Mass/Vol] 87 mg/dL 70 - 100 mg/dL [facility] Interpretation and review of laboratory results Abnormal [facility] Potassium [Moles/Vol] 3.5 mmol/L 3.5 - 5.1 mmol/L [facility] Sodium [Moles/Vol] 140 mmol/L 135 - 145 mmol/L [facility] Urea nitrogen (BldV) [Mass/Vol] 7 mg/dL 7 - 17 mg/dL [facility] Hemogram w/ Autodiffon 03-28 Abs Baso Cnt 0.0 10*3/uL Normal 0.0-0.2 [facility] Comment on above: Performed By: #### H EMDF, LIPA4, CMP3 #### [facility] [address] [facility] [address] Abs Neutrophile Cnt 5.1 10*3/uL Normal 1.8-7.0 [facility] Comment on above: Performed By: #### H EMDF, LIPA4, CMP3 #### [facility] [address] [facility] [place] [address] Basophils/100 WBC (Bld) 0.3 % Normal 0.0-2.0 [facility] Comment on above: Performed By: #### H EMDF, LIPA4, CMP3 #### [facility] [address] [place] [address] Eosinophils (Bld) [#/Vol] 0.0 10*3/uL Normal 0.0-0.5 [facility] Comment on above: Performed By: #### H EMDF, LIPA4, CMP3 #### [facility] [address] [place] [address] Eosinophils/100 WBC (Bld) 0.3 % Low 1.0-6.0 [facility] Comment on above: Performed By: #### H EMDF, LIPA4, CMP3 #### [facility] [address] [place] [address] Erythrocyte distribution width (RBC) [Ratio] 11.8 % Normal 11.5-14.5 [facility] Comment on above: Performed By: #### H EMDF, LIPA4, CMP3 #### [facility] [address] [place] [address] Granulocytes/100 WBC (Bld) 73.8 % Normal 40.0-80.0 [facility] Comment on above: Performed By: #### H EMDF, LIPA4, CMP3 #### [facility] [address] [place] [address] Hematocrit (Bld) [Volume fraction] 42.4 % Normal 40.0-52.0 [facility] Comment on above: Performed By: #### H EMDF, LIPA4, CMP3 #### [facility] [address] [place] [address] Hemoglobin (Bld) [Mass/Vol] 15.4 g/dL Normal 13.0-18. 0 [facility] Comment on above: Performed By: #### H EMDF, LIPA4, CMP3 #### [facility] [address] [place] [address] Lymphocytes (Bld) [#/Vol] 1.3 10*3/uL Normal 1.0-4.3 [facility] Comment on above: Performed By: #### H EMDF, LIPA4, CMP3 #### [facility] [address] [place] [address] Lymphocytes/100 WBC (Bld) 18.2 % Low 20.0-40.0 [facility] Comment on above: Performed By: #### H EMDF, LIPA4, CMP3 #### [facility] [address] [place] [address] MCH (RBC) [Entitic mass] 32.5 pg Normal 26.0-34.0 [facility] Comment on above: Performed By: #### H EMDF, LIPA4, CMP3 #### [facility] [address] [place] [address] MCHC 36.3 % High 32.0-36.0 [facility] Comment on above: Performed By: #### H EMDF, LIPA4, CMP3 #### [facility] [address] [place] [address] MCV (RBC) [Entitic vol] 89.5 fL Normal 80.0-98.0 [facility] Comment on above: Performed By: #### H EMDF, LIPA4, CMP3 #### [facility] [address] [place] [address] Monocytes (Bld) [#/Vol] 0.5 10*3/uL Normal 0.0-0.8 [facility] Comment on above: Performed By: #### H EMDF, LIPA4, CMP3 #### [facility] [address] [place] [address] Monocytes/100 WBC (Bld) 7.1 % Normal 2.0-10.0 [facility] Comment on above: Performed By: #### H EMDF, LIPA4, CMP3 #### [facility] [address] [place] [address] Platelet mean volume (Bld) [Entitic vol] 10.1 fL Normal 7.4-12.4 [facility] Comment on above: Result Comment: MPV is a calculated measurement using platelet volume ratio. Performed By: #### H EMDF, LIPA4, CMP3 #### [facility] [address] [place] [address] Platelets (Bld) [#/Vol] 165 10*3/uL Normal 140-440 [facility] Comment on above: Performed By: #### H EMDF, LIPA4, CMP3 #### [facility] [address] [place] [address] RBC (Bld) [#/Vol] 4.74 10*6/uL Normal 4.40-5.90 [facility] Comment on above: Performed By: #### H EMDF, LIPA4, CMP3 #### [facility] [address] [place] [address] WBC (Bld) [#/Vol] 6.9 10*3/uL Normal 3.6-10.7 [facility] Comment on above: Performed By: #### H EMDF, LIPA4, CMP3 #### [facility] [address] [place] [address] Lipaseon 03-28-2022 Lipase [Catalytic activity/Vol] 44 U/L Normal 23-300 [facility] Comment on above: Performed By: #### H EMDF, LIPA4, CMP3 ####[facility] [place] [address] Lipase [Catalytic activity/Vol] 44 U/L 23 - 300 U/L [facility] No Panel Informationon 03-28 Test Performed by [facility], [address] , [place], [place] [address] [facility] Urinalysison 03-28-2022 Appearance (U) Clear Clear NA [facility] Comment on above: . Bilirubin Urine Negative Negative mg/dL [facility] Comment on above: . Color (U) COLORLESS Lt. Yellow NA [facility] Comment on above: . Glucose, Ur Normal Normal (<70) mg/dL [facility] Comment on above: . Interpretation and review of laboratory results Abnormal [facility] Ketones Ql (U) Negative Negative mg/dL [facility] Comment on above: . LEUKOCYTES, UA Negative Negative Analy/uL [facility] Comment on above: . Nitrite, Urine Negative Negative NA [facility] Comment on above: . Occult Blood,Urine Negative Negative mg/dL [facility] Comment on above: . pH (U) 7.5 [pH] [facility] Comment on above: . Specific Reagan, Urine <1.005 Abnormal S [facility] Comment on above: . Total Protein, Urine Negative Negativ e mg/dL [facility] Comment on above: . Urobilinogen, Urine Normal Normal (0-1) mg/dL [facility] Comment on above: . Test Performed by [facility], [address] , [place], [place] [id number] [place] [address] LAB [facility] UA DIP, URINE (POC)on 2021 BILIRUBIN UA (POCT) Negative Negative K[facility] CLARITY UA (POCT) Clear [facility] COLOR UA (POCT) Yellow [facility] GLUCOSE UA (POCT) Negative Negative mg/dL [facility] HEMOGLOBIN/BLOOD UA (POCT) Trace-lysed Abnormal Negative [facility] KETONE UA (POCT) Negative Negative mg/dL [facility] LEUKOCYTES UA (POCT) Negative Negative [facility] NITRITE UA (POCT) Negative Negative [facility] UA (POCT) 7.5 4.5 - 8.0 [facility] Protein Ql (U) Negative Negative mg/dL [facility] SPECIFIC GRAVITY UA (POCT) 1.015 1 .005 - 1.030 [facility] UROBILINOGEN UA (POCT) 0.2 E.U./dL Martha l E.U./dL [facility] Chlamydia and GC PCR Panelon 03-24-2022 [...] as suspected child abuse or molestation. Normal [facility] Comment on above: Performed By: #### C UA2 #### [facility] [place] [address] #### CTNGP #### [place] [address] [place], [place] Complete Urinalysison 2021 Appearance (U) Clear Normal Clear [facility] Comment on above: Result Comment: . Performed By: #### C UA2 #### [facility] [address] [place] [address] #### CTNGP #### [place] [address] [place], [place] Bilirubin,Urine Negative Normal Negative [facility] Comment on above: Result Comment: . Performed By: #### C UA2 #### [address] [place] [address] #### CTNGP #### [address] Color (U) COLORLESS Normal Lt. Yellow [facility] Comment on above: Result Comment: . Performed By: #### C UA2 #### [address] [place] [place] [address] #### CTNGP #### [address] Glucose Ql (U) Normal Normal Normal (<70) [facility] Comment on above: Result Comment: . Performed By: #### C UA2 #### [address] [place] [address] #### CTNGP #### [address] Ketone,Urine Negative Normal Negative [facility] Comment on above: Result Comment: . Performed By: #### C UA2 #### [facility] [address] [place] [address] #### CTNGP #### [address] Leukocytes,Urine Negative Normal Negative [facility] Comment on above: Result Comment: . Performed By: #### C UA2 #### [facility] [address] [place] [address] #### CTNGP #### [address] [address] [place] [address] Nitrites,Urine Negative Normal Negative [facility] Comment on above: Result Comment: . Performed By: #### C UA2 #### [address] [place] [address] #### CTNGP #### [address] [place] [address] Occult Blood,Urine Negative Normal Negative [facility] Comment on above: Result Comment: . Performed By: #### C UA2 #### [address] [place] [address] #### CTNGP #### [address] [place] [address] pH,Urine 7.5 Normal 5.0-8.0 [facility] Comment on above: Result Comment: . Performed By: #### C UA2 #### [address] [place] [address] #### CTNGP #### [address] [place] [address] Specific Reagan,Urine < 1.005 Abnormal 1.005 - 1.030 [facility] Comment on above: Result Comment: . Performed By: #### C UA2 #### [address] [place] [address] #### CTNGP #### [address] [place] [address] Total Protein,Urine Negative Normal Negative [facility] Comment on above: Result Comment: . Performed By: #### C UA2 #### [address] [place] [place] [address] #### CTNGP #### [address] [address] [place] [address] Urobilinogen,Urine Normal Normal Normal (0-1) [facility] Comment on above: Result Comment: . Performed By: #### C UA2 #### [address] [place] [address] #### CTNGP #### [employer] [address] [place] [address] UrinalysisOrdered By: Fausto Caruso on 03-23-2022 Appearance (U) Clear Clear NA [facility] Work Phone: Comment on above: . Bilirubin Urine Negative Negative mg/dL [facility] Work Phone: Comment on above: . Color (U) COLORLESS Lt. Yellow NA [employer] Work Phone: Comment on above: . Glucose, Ur Normal Normal (<70) mg/dL [employer] Work Phone: Comment on above: . Interpretation and review of laboratory results Abnormal [employer] Work Phone: Ketones Ql (U) Negative Negative mg/dL [employer] Work Phone: Comment on above: . LEUKOCYTES, UA Negative Negative Analy/uL [facility] Work Phone: Comment on above: . Nitrite, Urine Negative Negative NA [employer] Work Phone: Comment on above: . Occult Blood,Urine Negative Negative mg/dL [employer] Work Phone: Comment on above: . pH (U) 7.5 [pH] [facility] Work Phone: Comment on above: . Specific Reagan, Urine <1.005 Abnormal S [facility] Work Phone: Comment on above: . Total Protein, Urine Negative Negativ e mg/dL [employer] Work Phone: Comment on above: . Urobilinogen, Urine Normal Normal (0-1) mg/dL [employer] Work Phone: Comment on above: . [facility] Work Phone: Urinalysison 03-23-2022 Test Performed by [employer], [address] , [place], [place] [id number] [place] [address] LAB Chlamydia and GC PCR Panelon 06-15-2022 Chlamydia and GC PCR Panel Chlamydia trachomatis PCR --> Status: F NOT Detected Chlamydia trachomatis Nucleic Acid NOT Detected by DNA Amplification using the Miroi System. Culture is the only recommended test in medical-legal cases such as suspected child abuse or molestation. Chlamydia trachomatis Nucleic Acid NOT Detected by DNA Amplification using the CepWipsterid System. Culture is the only recommended test in medical-legal cases such as suspected child abuse or molestation. Neisseria gonorrhoeae PCR --> Status: F NOT Detected Neisseria gonorrhoeae Nucleic Acid NOT Detected by DNA Amplification using the [employer]epWipsterid System. Culture is the only recommended test in medical-legal cases such as suspected child abuse or molestation. Neisseria gonorrhoeae Nucleic Acid NOT Detected by DNA Amplification using the CepWipsterid System. Culture is the only recommended test in medical-legal cases such as suspected child abuse or molestation. Normal [facility] Comment on above: Performed By: #### C TNGP ####[facility] [place] [address] Complete Urinalysison 2021 Appearance (U) Clear Normal Clear [facility] Comment on above: Result Comment: . Performed By: #### C UA2 #### [facility] [address] [place] [address] Bilirubin,Urine Negative Normal Negative [facility] Comment on above: Result Comment: . Performed By: #### C UA2 #### [facility] [address] [place] [address] Color (U) LIGHT YELLOW Normal Lt. Yellow [facility] Comment on above: Result Comment: . Performed By: #### C UA2 #### [facility] [address] [place] [address] Glucose Ql (U) Normal Normal Normal (<70) [facility] Comment on above: Result Comment: . Performed By: #### C UA2 #### [facility] [address] [place] [address] Ketone,Urine Negative Normal Negative [facility] Comment on above: Result Comment: . Performed By: #### C UA2 #### [facility] [address] [place] [address] Leukocytes,Urine Negative Normal Negative [facility] Comment on above: Result Comment: . Performed By: #### C UA2 #### [facility] [address] [place] [address] Nitrites,Urine Negative Normal Negative [facility] Comment on above: Result Comment: . Performed By: #### C UA2 #### [facility] [address] [place] [address] Occult Blood,Urine Negative Normal Negative [facility] Comment on above: Result Comment: . Performed By: #### C UA2 #### [facility] [address] [place] [address] pH,Urine 6.0 Normal 5.0-8.0 [facility] Comment on above: Result Comment: . Performed By: #### C UA2 #### [address] [place] [address] Specific Reagan,Urine 1.009 Normal 1.005 - 1.030 [facility] Comment on above: Result Comment: . Performed By: #### C UA2 #### [address] [place] [address] Total Protein,Urine Negative Normal Negative [facility] Comment on above: Result Comment: . Performed By: #### C UA2 #### [address] [place] [address] Urobilinogen,Urine Normal Normal Normal (0-1) [facility] Comment on above: Result Comment: . Performed By: #### C UA2 #### [address] [place] [address] Urinalysison 03-17-2022 Appearance (U) Clear Clear [facility] Comment on above: . Bilirubin Urine Negative [...] above: . Occult Blood,Urine Negative Negative mg/dL [facility] Comment on above: . pH (U) 6.0 [pH] [facility] Comment on above: . Specific Reagan, Urine 1.009 S [facility] Comment on above: . Total Protein, Urine Negative Negativ e mg/dL [facility] Comment on above: . Urobilinogen, Urine Normal Normal (0-1) mg/dL [facility] Comment on above: . Test Performed by [facility], [address] [place], [place] [address] , [address] LAB [facility] .Urinalysis Microscopic (AO) on 12-19-2021 UA Bacteria Trace Abnormal [facility] ([place]) Comment on above: Performed By: #### U AMICAO, UA #### [address] [place], [place] [address] UA RBC 0-5 Abnormal None Seen [facility] ([place]) Comment on above: Performed By: #### U AMICAO, UA #### [address] [place], [place] [address] UA Squam Epithelial None Seen Normal None Seen [facility] ([place]) Comment on above: Performed By: #### U AMICAO, UA #### [address] [place], [place] [address] UA WBC 0-5 Abnormal None Seen [facility] ([place]) Comment on above: Performed By: #### U AMICAO, UA #### [facility] [address] [place], [place] [address] LABORATORYOrdered By: Modesto Tam on 12-19-2021 Appearance [...] SS UAon 12-19-2021 Color (U) Ruchi Normal [facility] ([place]) Comment on above: Performed By: #### U AMICAO, UA #### [address] [address] Glucose (U) [Mass/Vol] 100 mg/dL Abnormal Negative [facility] ([place]) Comment on above: Performed By: #### U AMICAO, UA #### [address] [place], [place] [address] Ketones Ql (U) Trace Abnormal Negative [facility] ([place]) Comment on above: Performed By: #### U AMICAO, UA #### [address] [address] UA Appear Clear Normal Clear [facility] ([place]) Comment on above: Performed By: #### U AMICAO, UA #### [address] [place] [address] UA Bili Small Abnormal Negative [facility] ([place]) Comment on above: Performed By: #### U AMICAO, UA #### [employer] [address] [address] UA Blood Trace Abnormal Negative [facility] ([place]) Comment on above: Performed By: #### U AMICAO, UA #### [employer] [address] [address] UA Leuk Est Negative Normal Negative [facility] ([place]) Comment on above: Performed By: #### U AMICAO, UA #### [employer] [address] [address] UA Nitrite Positive Abnormal Negative [facility] ([place]) Comment on above: Performed By: #### U AMICAO, UA #### [employer] [id number] UA pH 5.0 Normal 5.0 - 8.0 [facility] ([place]) Comment on above: Performed By: #### U AMICAO, UA #### [address] [address] UA Protein Trace Normal Negative [facility] ([place]) Comment on above: Performed By: #### U AMICAO, UA #### [facility] [id number] UA Spec Grav 1.025 Normal 1.015-1.025 [facility] ([place]) Comment on above: Performed By: #### U AMICAO, UA #### [employer] [address] [address] UA Specimen Type Clean Catch Normal [facility] ([place]) Comment on above: Performed By: #### U AMICAO, UA #### [employer] [address] [address] UA Urobilinogen 1.0 E.U./dL Normal 0.2-1.0 [facility] ([place]) Comment on above: Performed By: #### U AMICAO, UA #### [employer] [address] [address] CR Chest Portableon 12-16-19 22 CR Chest Portable Patient Name: GILBERTO JOHNSON Diagnostic Radiology ACCESSION EXAM DATE/TIME PROCEDURE ORDERING PROVIDER [id number] 12/15/2021 21:42 EDT CR Chest Portable HAYDEN IVAN CPT code 26105 Reason For Exam (CR Chest Portable) fever [...] Transcribed Date and Time: 12/15/2021 9:56 Normal [facility] Comp Metabolic Panelon 12-15 ALP [Catalytic activity/Vol] 63 U/L Normal 38-126 [facility] Comment on above: Performed By: #### C MP3, HEMDF #### [facility] [address] [place] [address] ALT [Catalytic activity/Vol] 15 U/L Normal 0-49 [facility] Comment on above: Result Comment: The ALT test is performed by an updated assay method. Please note that the reference intervals have been changed and are now sex specific. Performed By: #### C MP3, HEMDF #### [facility] [address] [place] [address] AST [Catalytic activity/Vol] 28 U/L Normal 15-46 [facility] Comment on above: Performed By: #### C MP3, HEMDF #### [facility] [address] [place] [address] Calcium [Mass/Vol] 9.6 mg/dL Normal 8.4-10.4 [facility] Comment on above: Performed By: #### C MP3, HEMDF #### [facility] [address] [place] [address] Glucose [Mass/Vol] 104 mg/dL High 70-100 [facility] Comment on above: Performed By: #### C MP3, HEMDF #### [facility] [address] [place] [address] Protein [Mass/Vol] 7.5 g/dL Normal 6.3-8.2 [facility] Comment on above: Performed By: #### C MP3, HEMDF #### [facility] [address] [place] [address] Urea nitrogen [Mass/Vol] 3 mg/dL Low 7-17 [facility] Comment on above: Performed By: #### C OLIVIA3, HEMDF #### [facility] [address] [place] [address] Anion gap [Moles/Vol] 8 mmol/L Normal 3-13 [facility] Comment on above: Performed By: #### C OLIVIA3, HEMDF #### [facility] [address] [place] [address] Bilirubin [Mass/Vol] 0.8 mg/dL Normal 0.2-1.3 [facility] Comment on above: Performed By: #### C OLIVIA3, HEMDF #### [facility] [address] [place] [address] CO2 [Moles/Vol] 27 mmol/L Normal 22-30 [facility] Comment on above: Performed By: #### C OLIVIA3, HEMDF #### [facility] [address] [place] [address] Creatinine [Mass/Vol] 0.83 mg/dL Normal 0.52-1.25 [facility] Comment on above: Performed By: #### C OLIVIA3, HEMDF #### [facility] [address] [place] [address] eGFR OTHER > 90.0 Normal >60 [facility] Comment on above: Result Comment: [...] Performed By: #### C MP3, HEMDF #### [facility] [address] [place] [address] GFR/1.73 sq M.predicted among blacks MDRD (S/P/Bld) [Vol rate/Area] mL/min/{1.73_m2} Normal >60 [facility] Comment on above: Performed By: #### C MP3, HEMDF #### [facility] [address] [place] [address] Albumin [Mass/Vol] 4.6 g/dL Normal 3.5-5.0 [facility] Comment on above: Performed By: #### C MP3, HEMDF #### [facility] [address] [place] [address] Chloride [Moles/Vol] 104 mmol/L Normal 98-107 [facility] Comment on above: Performed By: #### C MP3, HEMDF #### [facility] [address] [place] [address] Potassium [Moles/Vol] 3.9 mmol/L Normal 3.5-5.1 [facility] Comment on above: Performed By: #### C MP3, HEMDF #### [facility] [address] [place] [address] Sodium [Moles/Vol] 138 mmol/L Normal 135-145 [facility] Comment on above: Performed By: #### C MP3, HEMDF #### [facility] [address] [place] [address] Hemogram w/ Autodiffon 12-15 Abs Baso Cnt 0.0 10*3/uL Normal 0.0-0.2 [facility] Comment on above: Performed By: #### C MP3, HEMDF #### [facility] [address] [place] [address] Abs Neutrophile Cnt 3.3 10*3/uL Normal 1.8-7.0 [facility] Comment on above: Performed By: #### C MP3, HEMDF #### [facility] [address] [place] [address] Basophils/100 WBC (Bld) 0.7 % Normal 0.0-2.0 [facility] Comment on above: Performed By: #### C MP3, HEMDF #### [facility] [address] [place] [address] Eosinophils (Bld) [#/Vol] 0.0 10*3/uL Normal 0.0-0.5 [facility] Comment on above: Performed By: #### C MP3, HEMDF #### [facility] [address] [place] [address] Eosinophils/100 WBC (Bld) 0.3 % Low 1.0-6.0 [facility] Comment on above: Performed By: #### C MP3, HEMDF #### [facility] [address] [place] [address] Erythrocyte distribution width (RBC) [Ratio] 13.3 % Normal 11.5-14.5 [facility] Comment on above: Performed By: #### C MP3, HEMDF #### [facility] [address] [place] [address] Granulocytes/100 WBC (Bld) 62.9 % Normal 40.0-80.0 [facility] Comment on above: Performed By: #### C MP3, HEMDF #### [facility] [address] [place] [address] Hematocrit (Bld) [Volume fraction] 44.3 % Normal 40.0-52.0 [facility] Comment on above: Performed By: #### C MP3, HEMDF #### [facility] [address] [place] [address] Hemoglobin (Bld) [Mass/Vol] 15.6 g/dL Normal 13.0-18. 0 [facility] Comment on above: Performed By: #### C MP3, HEMDF #### [facility] [address] [place] [address] Lymphocytes (Bld) [#/Vol] 1.4 10*3/uL Normal 1.0-4.3 [facility] Comment on above: Performed By: #### C MP3, HEMDF #### [facility] [address] [place] [address] Lymphocytes/100 WBC (Bld) 26.9 % Normal 20.0-40.0 [facility] Comment on above: Performed By: #### C MP3, HEMDF #### [facility] [address] [place] [address] MCH (RBC) [Entitic mass] 31.4 pg Normal 26.0-34.0 [facility] Comment on above: Performed By: #### C MP3, HEMDF #### [facility] [address] [place] [address] MCHC 35.1 % Normal 32.0-36.0 [facility] Comment on above: Performed By: #### C MP3, HEMDF #### [facility] [address] [place] [address] MCV (RBC) [Entitic vol] 89.3 fL Normal 80.0-98.0 [facility] Comment on above: Performed By: #### C MP3, HEMDF #### [facility] [address] [place] [address] Monocytes (Bld) [#/Vol] 0.5 10*3/uL Normal 0.0-0.8 [facility] Comment on above: Performed By: #### C MP3, HEMDF #### [facility] [address] [place] [address] Monocytes/100 WBC (Bld) 9.2 % Normal 2.0-10.0 [facility] Comment on above: Performed By: #### C MP3, HEMDF #### [facility] [address] [place] [address] Platelet mean volume (Bld) [Entitic vol] 7.7 fL Normal 7.4-10.4 [facility] Comment on above: Performed By: #### C MP3, HEMDF #### [facility] [address] [place] [address] Platelets (Bld) [#/Vol] 218 10*3/uL Normal 140-440 [facility] Comment on above: Performed By: #### C MP3, HEMDF #### [facility] [address] [place] [address] RBC (Bld) [#/Vol] 4.96 10*6/uL Normal 4.40-5.90 [facility] Comment on above: Performed By: #### C MP3, HEMDF #### [facility] [address] [place] [address] WBC (Bld) [#/Vol] 5.2 10*3/uL Normal 3.6-10.7 [facility] Comment on above: Performed By: #### C MP3, HEMDF #### [facility] [address] [place] [address] CR Chest Portableon 08-16-20 21 CR Chest Portable Patient Name: GILBERTO JOHNSON Diagnostic Radiology ACCESSION EXAM DATE/TIME PROCEDURE ORDERING PROVIDER [id number] 08/16/2021 18:25 EST CR Chest Portable MD HARJIT, FLORECITA Haji CPT code 44986 Reason For Exam (CR Chest Portable) shortness [...] ALFRED Transcribed Date and Time: 08/16/2021 6:38 [facility] XR CHEST PORTABLEon 08-16-20 Patient Name: GILBERTO JOHNSON Diagnostic Radiology ACCESSION EXAM DATE/TIME PROCEDURE ORDERING PROVIDER [id number] 08/16/2021 18:25 EST CR Chest Portable MD LOMBARDI DAVID C. CPT code 07448 Reason For Exam (CR Chest Portable) shortness [...] ALFRED Transcribed Date and Time: 08/16/2021 6:38 [facility] Benny Olivo DO - 08/16/2021 Patient Name: GILBERTO JOHNSON Diagnostic Radiology ACCESSION EXAM DATE/TIME PROCEDURE ORDERING PROVIDER [id number] 08/16/2021 18:25 EST CR Chest Portable MD LOMBARDI DAVID C. CPT code 41197 Reason For Exam (CR Chest Portable) shortness [...] CHEST PORTABLEOrdered By: Benny Olivo on 08-16-2021 [facility] Work Phone: [facility] on 04-12-2017 [facility] Normal [facility] Patient Summary Documentson 04-10-2017 Patient Summary Documents Normal [facility] Patient Summary Documents Normal [facility] No Panel Information Influenza Types A,B Direct FA (JESS) [facility] Work Phone: Vital Signs Date Time Vital Sign Value Performing Clinician Facility 06-16-2025 00:05-0400 Body temperature 98.1 [degF] No Primary Care Physician [facility] 06-16-2025 00:05-0400 Diastolic blood pressure 98 mm[Hg] No Primary Care Physician [facility] 06-16-2025 00:05-0400 Heart rate 72 /min No Primary Care Physician [facility] 06-16-2025 00:05-0400 Respiratory rate 18 /min No Primary Care Physician [facility] 06-16-2025 00:05-0400 SaO2% (BldA) [Mass fraction] 98 % No Primary Care Physician [facility] 06-16-2025 00:05-0400 Systolic blood pressure 138 mm[Hg] No Primary Care Physician [facility] 06-15-2025 21:35-0400 Body height 172.72 cm No Primary Care Physician [facility] 06-15-2025 21:35-0400 Body mass index (BMI) [Ratio] 23.7 kg/m2 No Primary Care Physician [facility] 06-15-2025 21:35-0400 Body weight 70.85 kg No Primary Care Physician [facility] 04-27-2025 18:31-0400 Body mass index (BMI) [Ratio] 23.46 kg/m2 Emir Clutter PA-C Work Phone: [facility] 04-27-2025 18:31-0400 Body temperature 97.81 [degF] Emir Clutter PA-C Work Phone: [facility] 04-27-2025 18:31-0400 Body weight 70 kg Emir Clutter PA-C Work Phone: [facility] 04-27-2025 18:31-0400 Diastolic blood pressure 81 mm[Hg] Emir Clutter PA-C Work Phone: [facility] 04-27-2025 18:31-0400 Heart rate 83 /min Emir Clutter PA-C Work Phone: [facility] 04-27-2025 18:31-0400 Respiratory rate 18 /min Emir Clutter PA-C Work Phone: [facility] 04-27-2025 18:31-0400 SaO2% (BldA) [Mass fraction] 96 % Emir Clutter PA-C Work Phone: [facility] 04-27-2025 18:31-0400 Systolic blood pressure 141 mm[Hg] Emir Clutter PA-C Work Phone: [facility] 04-05-2025 02:51-0400 Body temperature 98 [degF] No Primary Care Physician [facility] 04-05-2025 02:51-0400 Diastolic blood pressure 60 mm[Hg] No Primary Care Physician [facility] 04-05-2025 02:51-0400 Heart rate 72 /min No Primary Care Physician [facility] 04-05-2025 02:51-0400 Respiratory rate 16 /min No Primary Care Physician [facility] 04-05-2025 02:51-0400 SaO2% (BldA) [Mass fraction] 98 % No Primary Care Physician [facility] 04-05-2025 02:51-0400 Systolic blood pressure 132 mm[Hg] No Primary Care Physician [facility] 04-05-2025 01:14-0400 Body height 172.72 cm No Primary Care Physician [facility] 04-05-2025 01:14-0400 Body mass index (BMI) [Ratio] 23.4 kg/m2 No Primary Care Physician [facility] 04-05-2025 01:14-0400 Body weight 69.9 kg No Primary Care Physician [facility] 03-19-2025 01:41-0400 Body temperature 98 [degF] No Primary Care Physician [facility] 03-19-2025 01:41-0400 Diastolic blood pressure 81 mm[Hg] No Primary Care Physician [facility] 03-19-2025 01:41-0400 Heart rate 71 /min No Primary Care Physician [facility] 03-19-2025 01:41-0400 Respiratory rate 18 /min No Primary Care Physician [facility] 03-19-2025 01:41-0400 SaO2% (BldA) [Mass fraction] 100 % No Primary Care Physician [facility] 03-19-2025 01:41-0400 Systolic blood pressure 134 mm[Hg] No Primary Care Physician [facility] 03-19-2025 00:42-0400 Body height 173 cm No Primary Care Physician [facility] 03-19-2025 00:42-0400 Body mass index (BMI) [Ratio] 23.9 kg/m2 No Primary Care Physician [facility] 03-19-2025 00:42-0400 Body weight 71.6 kg No Primary Care Physician [facility] 12-14-2024 18:41-0400 Body mass index (BMI) [Ratio] 23.63 kg/m2 Alex Landers MD Work Phone: [facility] 12-14-2024 18:41-0400 Body temperature 97.9 [degF] Alex Landers MD Work Phone: [facility] 12-14-2024 18:41-0400 Body weight 70.5 kg Alex Landers MD Work Phone: [facility] 12-14-2024 18:41-0400 Diastolic blood pressure 74 mm[Hg] Alex Landers MD Work Phone: [facility] 12-14-2024 18:41-0400 Heart rate 101 /min Alex Landers MD Work Phone: [facility] 12-14-2024 18:41-0400 Respiratory rate 16 /min Alex Landers MD Work Phone: [facility] 12-14-2024 18:41-0400 SaO2% (BldA) [Mass fraction] 96 % Alex Landers MD Work Phone: [facility] 12-14-2024 18:41-0400 Systolic blood pressure 122 mm[Hg] Alex Landers MD Work Phone: [facility] 12-06-2024 12:34-0500 Body mass index (BMI) [Ratio] 22 kg/m2 No Primary Care Physician [facility] 12-06-2024 12:34-0500 Body temperature 97.6 [degF] No Primary Care Physician [facility] 12-06-2024 12:34-0500 Body weight 65.77 kg No Primary Care Physician [facility] 12-06-2024 12:34-0500 Diastolic blood pressure 95 mm[Hg] No Primary Care Physician [facility] 12-06-2024 12:34-0500 Heart rate 86 /min No Primary Care Physician [facility] 12-06-2024 12:34-0500 Respiratory rate 15 /min No Primary Care Physician [facility] 12-06-2024 12:34-0500 SaO2% (BldA) [Mass fraction] 97 % No Primary Care Physician [facility] 12-06-2024 12:34-0500 Systolic blood pressure 130 mm[Hg] No Primary Care Physician [facility] 12-25-2023 07:31-0400 Body temperature 97.4 [degF] [facility] 12-25-2023 07:31-0400 Diastolic blood pressure 83 mm[Hg] [facility] 12-25-2023 07:31-0400 Heart rate 79 /min [facility] 12-25-2023 07:31-0400 Respiratory rate 16 /min [facility] 12-25-2023 07:31-0400 SaO2% (BldA) [Mass fraction] 99 % [facility] 12-25-2023 07:31-0400 Systolic blood pressure 116 mm[Hg] [facility] 12-25-2023 03:45-0400 Body height 172.72 cm [facility] 12-25-2023 03:45-0400 Body mass index (BMI) [Ratio] 21.2 kg/m2 [facility] 12-25-2023 03:45-0400 Body weight 63.5 kg [facility] 11-19-2023 17:30-0500 Body temperature 97.81 [degF] Krislyn Aberegg PA Work Phone: [facility] 11-19-2023 17:30-0500 Body weight 71.22 kg Krislyn Aberegg PA Work Phone: [facility] 11-19-2023 17:30-0500 Diastolic blood pressure 88 mm[Hg] Krislyn Aberegg PA Work Phone: [facility] 11-19-2023 17:30-0500 Heart rate 111 /min Krislyn Aberegg PA Work Phone: [facility] 11-19-2023 17:30-0500 Respiratory rate 18 /min Krislyn Aberegg PA Work Phone: [facility] 11-19-2023 17:30-0500 SaO2% (BldA) [Mass fraction] 100 % Krislyn Aberegg PA Work Phone: [facility] 11-19-2023 17:30-0500 Systolic blood pressure 132 mm[Hg] Krislyn Aberegg PA Work Phone: [facility] 06-05-2023 18:03-0400 Body height 172.72 cm [facility] 06-05-2023 18:03-0400 Body mass index (BMI) [Ratio] 22.4 kg/m2 [facility] 06-05-2023 18:03-0400 Body temperature 97.1 [degF] [facility] 06-05-2023 18:03-0400 Body weight 66.85 kg [facility] 06-05-2023 18:03-0400 Diastolic blood pressure 115 mm[Hg] [facility] 06-05-2023 18:03-0400 Heart rate 96 /min [facility] 06-05-2023 18:03-0400 Respiratory rate 18 /min [facility] 06-05-2023 18:03-0400 SaO2% (BldA) [Mass fraction] 99 % [facility] 06-05-2023 18:03-0400 Systolic blood pressure 141 mm[Hg] [facility] 02-28-2023 19:52-0400 Body height 172.72 cm [facility] 02-28-2023 19:52-0400 Body mass index (BMI) [Ratio] 21.6 kg/m2 [facility] 02-28-2023 19:52-0400 Body temperature 98 [degF] [facility] 02-28-2023 19:52-0400 Body weight 64.45 kg [facility] 02-28-2023 19:52-0400 Diastolic blood pressure 94 mm[Hg] [facility] 02-28-2023 19:52-0400 Heart rate 92 /min [facility] 02-28-2023 19:52-0400 Respiratory rate 16 /min [facility] 02-28-2023 19:52-0400 SaO2% (BldA) [Mass fraction] 98 % [facility] 02-28-2023 19:52-0400 Systolic blood pressure 128 mm[Hg] [facility] 02-03-2023 06:40-0400 Diastolic blood pressure 77 mm[Hg] [facility] 02-03-2023 06:40-0400 Heart rate 62 /min [facility] 02-03-2023 06:40-0400 Respiratory rate 15 /min [facility] 02-03-2023 06:40-0400 SaO2% (BldA) [Mass fraction] 97 % [facility] 02-03-2023 06:40-0400 Systolic blood pressure 108 mm[Hg] [facility] 02-03-2023 06:11-0400 Body height 172.72 cm [facility] 02-03-2023 06:11-0400 Body temperature 99.4 [degF] [facility] 01-13-2023 06:11-0400 Body height 172.72 cm [facility] 01-13-2023 06:11-0400 Body mass index (BMI) [Ratio] 21.9 kg/m2 [facility] 01-13-2023 06:11-0400 Body temperature 98.5 [degF] [facility] 01-13-2023 06:11-0400 Body weight 65.5 kg [facility] 01-13-2023 06:11-0400 Diastolic blood pressure 74 mm[Hg] [facility] 01-13-2023 06:11-0400 Heart rate 74 /min [facility] 01-13-2023 06:11-0400 Respiratory rate 15 /min [facility] 01-13-2023 06:11-0400 SaO2% (BldA) [Mass fraction] 98 % [facility] 01-13-2023 06:11-0400 Systolic blood pressure 132 mm[Hg] [facility] 01-02-2023 21:09-0400 Body temperature 98.4 [degF] [facility] 01-02-2023 21:09-0400 Diastolic blood pressure 94 mm[Hg] [facility] 01-02-2023 21:09-0400 Heart rate 87 /min [facility] 01-02-2023 21:09-0400 Respiratory rate 18 /min [facility] 01-02-2023 21:09-0400 Systolic blood pressure 139 mm[Hg] [facility] 01-02-2023 21:05-0400 Body height 172.72 cm [facility] 01-02-2023 21:05-0400 Body mass index (BMI) [Ratio] 21.4 kg/m2 [facility] 01-02-2023 21:05-0400 Body weight 63.95 kg [facility] 01-02-2023 06:36-0400 Body height 172.72 cm [facility] 01-02-2023 06:36-0400 Body mass index (BMI) [Ratio] 21.7 kg/m2 [facility] 01-02-2023 06:36-0400 Body temperature 98.2 [degF] [facility] 01-02-2023 06:36-0400 Body weight 64.8 kg [facility] 01-02-2023 06:36-0400 Diastolic blood pressure 76 mm[Hg] [facility] 01-02-2023 06:36-0400 Heart rate 76 /min [facility] 01-02-2023 06:36-0400 Respiratory rate 17 /min [facility] 01-02-2023 06:36-0400 SaO2% (BldA) [Mass fraction] 98 % [facility] 01-02-2023 06:36-0400 Systolic blood pressure 141 mm[Hg] [facility] 12-31-2022 09:35-0400 Respiratory rate 16 /min [facility] 12-31-2022 08:55-0400 Body mass index (BMI) [Ratio] 20.3 kg/m2 [facility] 12-31-2022 08:55-0400 Body temperature 98 [degF] [facility] 12-31-2022 08:55-0400 Body weight 60.78 kg [facility] 12-31-2022 08:55-0400 Diastolic blood pressure 70 mm[Hg] [facility] 12-31-2022 08:55-0400 Heart rate 79 /min [facility] 12-31-2022 08:55-0400 SaO2% (BldA) [Mass fraction] 99 % [facility] 12-31-2022 08:55-0400 Systolic blood pressure 112 mm[Hg] [facility] 12-01-2022 21:38-0500 Diastolic blood pressure 63 mm[Hg] [facility] 12-01-2022 21:38-0500 Heart rate 64 /min [facility] 12-01-2022 21:38-0500 Systolic blood pressure 127 mm[Hg] [facility] 12-01-2022 20:44-0500 Body height 172.72 cm [facility] 12-01-2022 20:44-0500 Body mass index (BMI) [Ratio] 21.9 kg/m2 [facility] 12-01-2022 20:44-0500 Body temperature 99.3 [degF] [facility] 12-01-2022 20:44-0500 Body weight 65.4 kg [facility] 12-01-2022 20:44-0500 Respiratory rate 18 /min [facility] 12-01-2022 20:44-0500 SaO2% (BldA) [Mass fraction] 95 % [facility] 10-10-2022 22:52-0500 Diastolic blood pressure 90 mm[Hg] [facility] 10-10-2022 22:52-0500 Heart rate 98 /min [facility] 10-10-2022 22:52-0500 Respiratory rate 15 /min [facility] 10-10-2022 22:52-0500 SaO2% (BldA) [Mass fraction] 99 % [facility] 10-10-2022 22:52-0500 Systolic blood pressure 136 mm[Hg] [facility] 10-10-2022 21:07-0500 Body mass index (BMI) [Ratio] 21.2 kg/m2 [facility] 10-10-2022 21:07-0500 Body temperature 97 [degF] [facility] 10-10-2022 21:07-0500 Body weight 63.5 kg [facility] 10-02-2022 19:30-0500 Diastolic Blood Pressure Non-Invasive [address] MCKAYLA CARSON DO [facility] 10-02-2022 19:30-0500 Heart rate 112 /min DR MCKAYLA CARSON DO [facility] 10-02-2022 19:30-0500 Respiratory rate 18 /min DR MCKAYLA CARSON DO [facility] 10-02-2022 19:30-0500 Systolic Blood Pressure Non-Invasive [address] MCKAYLA CARSON DO [facility] 09-09-2022 13:19-0500 Body height 172.72 cm [facility] Work Phone: 09-09-2022 13:19-0500 Body mass index (BMI) [Ratio] 19 kg/m2 [facility] 09-09-2022 13:19-0500 Body temperature 97.6 [degF] [facility] 09-09-2022 13:19-0500 Body weight 56.69 kg [facility] 09-09-2022 13:19-0500 Diastolic blood pressure 88 mm[Hg] [facility] 09-09-2022 13:19-0500 Heart rate 98 /min [facility] 09-09-2022 13:19-0500 Respiratory rate 18 /min [facility] 09-09-2022 13:19-0500 SaO2% (BldA) [Mass fraction] 99 % [facility] 09-09-2022 13:19-0500 Systolic blood pressure 113 mm[Hg] [facility] 09-03-2022 17:27-0500 Respiratory rate 22 /min [facility] 09-03-2022 17:00-0500 Diastolic blood pressure 88 mm[Hg] [facility] 09-03-2022 17:00-0500 Systolic blood pressure 140 mm[Hg] [facility] 09-03-2022 12:40-0500 Body height 172.72 cm [facility] Work Phone: 09-03-2022 12:40-0500 Body mass index (BMI) [Ratio] 20.5 kg/m2 [facility] 09-03-2022 12:40-0500 Body temperature 100 [degF] [facility] 09-03-2022 12:40-0500 Body weight 61.23 kg [facility] 09-03-2022 12:40-0500 Heart rate 117 /min [facility] 09-03-2022 12:40-0500 SaO2% (BldA) [Mass fraction] 100 % [facility] 08-20-2022 11:21-0500 Body height 172.72 cm [facility] Work Phone: 08-20-2022 11:21-0500 Body mass index (BMI) [Ratio] 19.8 kg/m2 [facility] 08-20-2022 11:21-0500 Body temperature 96.5 [degF] [facility] 08-20-2022 11:21-0500 Body weight 58.96 kg [facility] 08-20-2022 11:21-0500 Diastolic blood pressure 92 mm[Hg] [facility] 08-20-2022 11:21-0500 Heart rate 102 /min [facility] 08-20-2022 11:21-0500 Respiratory rate 18 /min [facility] 08-20-2022 11:21-0500 SaO2% (BldA) [Mass fraction] 99 % [facility] 08-20-2022 11:21-0500 Systolic blood pressure 130 mm[Hg] [facility] 07-30-2022 14:56-0400 Body mass index (BMI) [Ratio] 20.7 kg/m2 [facility] Work Phone: 07-30-2022 14:56-0400 Body temperature 98.2 [degF] [facility] Work Phone: 07-30-2022 14:56-0400 Body weight 61.7 kg [facility] Work Phone: 07-30-2022 14:56-0400 Diastolic blood pressure 82 mm[Hg] [facility] Work Phone: 07-30-2022 14:56-0400 Heart rate 98 /min [facility] Work Phone: 07-30-2022 14:56-0400 Respiratory rate 16 /min [facility] Work Phone: 07-30-2022 14:56-0400 SaO2% (BldA) [Mass fraction] 100 % [facility] Work Phone: 07-30-2022 14:56-0400 Systolic blood pressure 113 mm[Hg] [facility] Work Phone: 07-30-2022 03:00-0400 Heart rate 77 /min [facility] Work Phone: 07-30-2022 03:00-0400 Respiratory rate 15 /min [facility] Work Phone: 07-30-2022 03:00-0400 SaO2% (BldA) [Mass fraction] 99 % [facility] Work Phone: 07-30-2022 01:10-0400 Diastolic blood pressure 79 mm[Hg] [facility] Work Phone: 07-30-2022 01:10-0400 Systolic blood pressure 129 mm[Hg] [facility] Work Phone: 07-29-2022 21:11-0400 Body height 172.72 cm [facility] Work Phone: 07-29-2022 21:11-0400 Body mass index (BMI) [Ratio] 19.8 kg/m2 [facility] Work Phone: 07-29-2022 21:11-0400 Body temperature 97.6 [degF] [facility] Work Phone: 07-29-2022 21:11-0400 Body weight 58.96 kg [facility] Work Phone: 06-17-2022 20:24-0400 Body height 172.72 cm [facility] Work Phone: 06-17-2022 20:24-0400 Body mass index (BMI) [Ratio] 20.5 kg/m2 [facility] Work Phone: 06-17-2022 20:24-0400 Body temperature 98.4 [degF] [facility] Work Phone: 06-17-2022 20:24-0400 Body weight 61.23 kg [facility] Work Phone: 06-17-2022 20:24-0400 Diastolic blood pressure 73 mm[Hg] [facility] Work Phone: 06-17-2022 20:24-0400 Heart rate 95 /min [facility] Work Phone: 06-17-2022 20:24-0400 Respiratory rate 16 /min [facility] Work Phone: 06-17-2022 20:24-0400 SaO2% (BldA) [Mass fraction] 92 % [facility] Work Phone: 06-17-2022 20:24-0400 Systolic blood pressure 129 mm[Hg] [facility] Work Phone: 05-02-2022 02:30-0400 Body height 172.7 cm Emir Figueredo MD Work Phone: [facility] 05-02-2022 02:30-0400 Body mass index (BMI) [Ratio] 22.05 kg/m2 Emir Figueredo MD Work Phone: [facility] 05-02-2022 02:30-0400 Body temperature 98.29 [degF] Emir Figueredo MD Work Phone: [facility] 05-02-2022 02:30-0400 Body weight 65.77 kg Emir Figueredo MD Work Phone: [facility] 05-02-2022 02:30-0400 Diastolic blood pressure 82 mm[Hg] Emir Figueredo MD Work Phone: [facility] 05-02-2022 02:30-0400 Heart rate 114 /min Emir Figueredo MD Work Phone: [facility] 05-02-2022 02:30-0400 Respiratory rate 16 /min Emir Figueredo MD Work Phone: [facility] 05-02-2022 02:30-0400 SaO2% (BldA) [Mass fraction] 97 % Emir Figueredo MD Work Phone: [facility] 05-02-2022 02:30-0400 Systolic blood pressure 123 mm[Hg] Emir Figueredo MD Work Phone: [facility] 03-28-2022 17:11-0400 Diastolic blood pressure 79 mm[Hg] Bassem Elena MD Work Phone: [facility] 03-28-2022 17:11-0400 Heart rate 80 /min Bassem Elena MD Work Phone: [facility] 03-28-2022 17:11-0400 Respiratory rate 14 /min Bassem Elena MD Work Phone: [facility] 03-28-2022 17:11-0400 SaO2% (BldA) [Mass fraction] 100 % Bassem Elena MD Work Phone: [facility] 03-28-2022 [id number]:110400 Systolic blood pressure 132 mm[Hg] Bassem Elena MD Work Phone: [facility] 03-28-2022 14:05-0400 Body height 172.7 cm Bassem Elena MD Work Phone: [facility] 03-28-2022 14:05-0400 Body mass index (BMI) [Ratio] 20.53 kg/m2 Bassem Elena MD Work Phone: [facility] 03-28-2022 14:05-0400 Body temperature 98.4 [degF] Bassem Elena MD Work Phone: [facility] 03-28-2022 14:05-0400 Body weight 61.24 kg Bassem Elena MD Work Phone: [facility] 03-27-2022 15:10-0400 Body height 172.7 cm Kevin Gill PA-C Work Phone: [facility] 03-27-2022 15:10-0400 Body temperature 98.6 [degF] Kevin Gill PA-C Work Phone: [facility] 03-27-2022 15:10-0400 Body weight 63.96 kg Kevin Gill PA-C Work Phone: [facility] 03-27-2022 15:10-0400 Diastolic blood pressure 88 mm[Hg] Kevin Gill PA-C Work Phone: [facility] 03-27-2022 15:10-0400 Heart rate 106 /min Kevin Gill PA-C Work Phone: [facility] 03-27-2022 15:10-0400 Respiratory rate 16 /min Kevin Gill PA-C Work Phone: [facility] 03-27-2022 15:10-0400 SaO2% (BldA) [Mass fraction] 96 % Kevni Gill PA-C Work Phone: [facility] 03-27-2022 15:10-0400 Systolic blood pressure 110 mm[Hg] Kevin Gill PA-C Work Phone: [facility] 03-23-2022 19:39-0400 Body height 172.7 cm Florecita Caruso MD Work Phone: [facility] 03-23-2022 19:39-0400 Body mass index (BMI) [Ratio] 20.53 kg/m2 Florecita Caruso MD Work Phone: [facility] 03-23-2022 19:39-0400 Body temperature 98.8 [degF] Florecita Caruso MD Work Phone: [facility] 03-23-2022 19:39-0400 Body weight 61.24 kg Florecita Caruso MD Work Phone: [facility] 03-23-2022 19:39-0400 Diastolic blood pressure 79 mm[Hg] Florecita Caruso MD Work Phone: [facility] 03-23-2022 19:39-0400 Heart rate 94 /min Florecita Caruso MD Work Phone: [facility] 03-23-2022 19:39-0400 Respiratory rate 18 /min Florecita Caruso MD Work Phone: [facility] 03-23-2022 19:39-0400 SaO2% (BldA) [Mass fraction] 99 % Florecita Caruso MD Work Phone: [facility] 03-23-2022 19:39-0400 Systolic blood pressure 123 mm[Hg] Florecita Caruso MD Work Phone: [facility] 03-17-2022 19:10-0400 Body temperature 98.2 [degF] Wally Burleson MD Work Phone: [facility] 03-17-2022 19:10-0400 Diastolic blood pressure 82 mm[Hg] Wally Burleson MD Work Phone: [facility] 03-17-2022 19:10-0400 Heart rate 96 /min Wally Burleson MD Work Phone: [facility] 03-17-2022 19:10-0400 Respiratory rate 18 /min Wally Burleson MD Work Phone: [facility] 03-17-2022 19:10-0400 SaO2% (BldA) [Mass fraction] 99 % Wally Burleson MD Work Phone: [facility] 03-17-2022 19:10-0400 Systolic blood pressure 131 mm[Hg] Wally Burleson MD Work Phone: [facility] 02-16-2022 20:02-0400 Body temperature 97.9 [degF] Lynn Brenda DO Work Phone: [facility] 02-16-2022 20:02-0400 Diastolic blood pressure 88 mm[Hg] Lynn Brenda DO Work Phone: [facility] 02-16-2022 20:02-0400 Heart rate 98 /min Lynn Brenda DO Work Phone: [facility] 02-16-2022 20:02-0400 Respiratory rate 18 /min Lynn Brenda DO Work Phone: [facility] 02-16-2022 20:02-0400 SaO2% (BldA) [Mass fraction] 97 % Lynn Brenda DO Work Phone: [facility] 02-16-2022 20:02-0400 Systolic blood pressure 122 mm[Hg] Lynn Brenda DO Work Phone: [facility] 12-19-2021 09:29-0400 Body temperature 98.78 [degF] JENNIFER VALLES MD [facility] 12-19-2021 09:29-0400 Body weight 65.8 kg JENNIFER VALLES MD [facility] 12-19-2021 09:29-0400 Diastolic blood pressure 75 mm[Hg] JENNIFER VALLES MD [facility] 12-19-2021 09:29-0400 Heart rate 97 /min JENNIFER VALLES MD [facility] 12-19-2021 09:29-0400 Respiratory rate 16 /min JENNIFER VALLES MD [facility] 12-19-2021 09:29-0400 Systolic blood pressure 142 mm[Hg] JENNIFER VALLES MD [facility] 12-16-2021 22:42-0400 Body height 172.7 cm Wally Burleson MD Work Phone: [facility] 12-16-2021 22:42-0400 Body mass index (BMI) [Ratio] 21.13 kg/m2 Wally Burleson MD Work Phone: [facility] 12-16-2021 22:42-0400 Body temperature 98.1 [degF] Wally Burleson MD Work Phone: [facility] 12-16-2021 22:42-0400 Body weight 63.05 kg Wally Burleson MD Work Phone: [facility] 12-16-2021 22:42-0400 Diastolic blood pressure 95 mm[Hg] Wally Burleson MD Work Phone: [facility] 12-16-2021 22:42-0400 Heart rate 97 /min Wally Burleson MD Work Phone: [facility] 12-16-2021 22:42-0400 Respiratory rate 18 /min Wally Burleson MD Work Phone: [facility] 12-16-2021 22:42-0400 SaO2% (BldA) [Mass fraction] 98 % Wally Burleson MD Work Phone: [facility] 12-16-2021 22:42-0400 Systolic blood pressure 140 mm[Hg] Wally Burleson MD Work Phone: [facility] 10-04-2021 19:16-0500 Body height 172.7 cm Tereso Kuo MD Work Phone: [facility] 10-04-2021 19:16-0500 Body mass index (BMI) [Ratio] 22.5 kg/m2 Tereso Kuo MD Work Phone: [facility] 10-04-2021 19:16-0500 Body temperature 99.1 [degF] Tereso Kuo MD Work Phone: [facility] 10-04-2021 19:16-0500 Body weight 67.13 kg Tereso Kuo MD Work Phone: [facility] 10-04-2021 19:16-0500 Diastolic blood pressure 86 mm[Hg] Tereso Kuo MD Work Phone: [facility] 10-04-2021 19:16-0500 Heart rate 92 /min Tereso Kuo MD Work Phone: [facility] 10-04-2021 19:16-0500 Respiratory rate 16 /min Tereso Kuo MD Work Phone: [facility] 10-04-2021 19:16-0500 SaO2% (BldA) [Mass fraction] 96 % Tereso Kuo MD Work Phone: [facility] 10-04-2021 19:16-0500 Systolic blood pressure 110 mm[Hg] Tereso Kuo MD Work Phone: [facility] 08-16-2021 19:03-0500 Diastolic blood pressure 84 mm[Hg] Florecita Lombardi MD Work Phone: [facility] 08-16-2021 19:03-0500 Heart rate 84 /min Florecita Lombardi MD Work Phone: [facility] 08-16-2021 19:03-0500 Respiratory rate 18 /min Florecita Lombardi MD Work Phone: [facility] 08-16-2021 19:03-0500 SaO2% (BldA) [Mass fraction] 97 % Florecita Lombardi MD Work Phone: [facility] 08-16-2021 19:03-0500 Systolic blood pressure 127 mm[Hg] Florecita Lombardi MD Work Phone: [facility] 08-16-2021 18:07-0500 Body height 172.7 cm Florecita Lombardi MD Work Phone: [facility] 08-16-2021 18:07-0500 Body mass index (BMI) [Ratio] 20.53 kg/m2 Florecita Lombardi MD Work Phone: [facility] 08-16-2021 18:07-0500 Body temperature 99.7 [degF] Florecita Lombardi MD Work Phone: [facility] 08-16-2021 18:07-0500 Body weight 61.24 kg Florecita Lombardi MD Work Phone: [facility] Encounters Encounter Date Encounter Type Care Provider Facility Start: 06-15-2025 End: 06-16-2025 Emergency department patient visit No Primary Care Physician -Emergency Department Work Phone: Start: 04-27-2025 End: 04-27-2025 Office outpatient visit 25 minutes Emir Simons PA-C Work Phone: [facility] Comment on above: Acute non-recurrent sinusitis, unspecified location (Primary Dx) Start: 04-27-2025 End: 04-27-2025 ambulatory DALTON ART Facility:[facility] Start: 04-05-2025 End: 04-05-2025 Emergency department patient visit No Primary Care Physician -Emergency Department Work Phone: Start: 03-19-2025 End: 03-19-2025 Emergency department patient visit No Primary Care Physician -Emergency Department Work Phone: Start: 12-14-2024 End: 12-14-2024 ambulatory DALTON ART Facility:[facility] Start: 12-14-2024 End: 12-14-2024 Office outpatient visit 15 minutes Alex Landers MD Work Phone: [facility] Comment on above: Post-nasal drainage (Primary Dx) Start: 12-06-2024 End: 12-06-2024 Emergency department patient visit Dr. Marco Antonio Cintron MD -Emergency Department Work Phone: Start: 10-13-2024 End: 10-13-2024 Emergency department patient visit Antwan Vilma Facility:[facility] Start: 09-19-2024 End: 09-19-2024 Emergency department patient visit [facility] Facility:[facility] Start: 09-11-2024 End: 09-11-2024 Emergency department patient visit No Primary Care Physician Facility:[facility] Start: 08-20-2024 End: 08-20-2024 Emergency department patient visit Alan Kel Facility:[facility] Start: 07-04-2024 End: 07-04-2024 Emergency department patient visit Nolan Brady Facility:[facility] Start: 12-25-2023 End: 12-25-2023 Emergency department patient visit [facility]-Emergency Department Work Phone: Start: 11-19-2023 End: 11-19-2023 Patient encounter procedure Travis KLEIN Work Phone: [facility] Comment on above: Mouth sore (Primary Dx); Bacterial sinusitis Start: 06-05-2023 End: 06-05-2023 Emergency department patient visit [facility] Work Phone: Start: 02-28-2023 End: 02-28-2023 Emergency department patient visit [facility] Start: 02-03-2023 End: 02-03-2023 Emergency department patient visit [facility] Start: 01-13-2023 End: 01-13-2023 Emergency department patient visit [facility] Start: 01-02-2023 End: 01-03-2023 Emergency department patient visit [facility] Start: 01-02-2023 End: 01-02-2023 Emergency department patient visit [facility] Start: 12-31-2022 End: 12-31-2022 Emergency department patient visit [facility] Start: 12-01-2022 End: 12-01-2022 Emergency department patient visit [facility] Start: 10-10-2022 End: 10-10-2022 Emergency department patient visit [facility] Start: 10-02-2022 End: 10-02-2022 Emergency department patient visit DR. MCKAYLA CARSON DO Facility:B Start: 10-02-2022 End: 10-02-2022 Emergency department patient visit DR MCKAYLA CARSON DO [facility] Start: 09-09-2022 End: 09-09-2022 Emergency department patient visit [facility] Start: 09-03-2022 End: 09-03-2022 Emergency department patient visit [facility] Start: 08-20-2022 End: 08-20-2022 Emergency department patient visit [facility] Start: 07-30-2022 End: 07-30-2022 Emergency department patient visit [facility] Start: 07-29-2022 End: 07-30-2022 Emergency department patient visit [facility] Start: 06-30-2022 Telephone encounter Kevin rivero PA-C Work Phone: Urology Comment on above: [employer] - [employer] ther Start: 06-17-2022 End: 06-17-2022 Emergency department patient visit [facility] Start: 05-02-2022 End: 05-02-2022 Emergency department patient visit Emir Figueredo MD [facility] Comment on above: Acute cystitis with hematuria (Primary Dx) Start: 03-30-2022 End: 03-31-[address] NEVAEH FRAGA MD. Facility:B Start: 03-30-2022 End: 03-30-[address] NEVAEH FRAGA MD [facility] Start: 03-30-2022 Telephone encounter Kevin rivero PA-C Work Phone: Urology Comment on above: Results Start: 03-28-2022 End: 03-28-2022 Emergency department patient visit Bassem Elena MD Work Phone: [facility] Comment on above: Abnormal laboratory test (Primary Dx); Anxiety state Start: 03-27-2022 End: 03-27-2022 Patient encounter procedure Kevin Gill PA-C Work Phone: Urology Comment on above: Dysuria (Primary Dx) Start: 03-25-2022 Telephone encounter Kevin rivero PA-C Work Phone: Urology Comment on above: Received Outside Med ical Records Start: 03-23-2022 End: 03-23-2022 Emergency department patient visit Florecita Caruso MD Work Phone: [facility] Comment on above: Dysuria (Primary Dx) ; Anxiety state Start: 03-17-2022 End: 03-17-2022 Emergency department patient visit Wally Burleson MD Work Phone: [facility] Comment on above: Dysuria (Primary Dx) Start: 02-16-2022 End: 02-16-2022 Emergency department patient visit Lynn Gutierrez DO Work Phone: [facility] Comment on above: Seasonal allergic rh initis due to pollen (Primary Dx) Start: 02-11-[address] NEVAEH FRAGA MD. Facility:B Start: 02-03-[address] NEVAEH FRAGA MD. Facility:B Start: 12-19-2021 End: 12-19-2021 Emergency department patient visit DR. NEVAEH FRAGA MD. Facility:B Start: 12-19-2021 End: 12-19-2021 Emergency department patient visit JENNIFER VALLES MD [facility] Start: 12-16-2021 End: 12-16-2021 Emergency department patient visit Wally Burleson MD Work Phone: [facility] Comment on above: Anxiety state (Prima ry Dx) Start: 10-04-2021 End: 10-04-2021 Emergency department patient visit Tereso Kuo MD Work Phone: [facility] Comment on above: Acute nonintractable headache, unspecified headache type (Primary Dx) Start: 08-16-2021 End: 08-16-2021 Emergency department patient visit Florecita Lombardi MD Work Phone: [facility] Comment on above: Bronchitis (Primary Dx) Start: 04-10-2017 End: 04-11-2017 Emergency department patient visit REBEL W EDGAR Facility:[facility] Start: 04-09-2017 End: 04-10-2017 Emergency department patient visit MILE SANCHEZ Facility:[facility] Start: 01-07-2017 End: 01-07-2017 Patient encounter procedure JOSSY MURILLO Facility:[facility] Procedures Date Procedure Procedure Detail [...] P,Tdap,Td Vaccine (8 - Td or Tdap) [facility] Start: 05-22-2026 DTaP/Tdap/Td vaccine (2 - Td or Tdap) DTaP/Tdap/Td vaccine (2 - Td or Tdap) [facility] Start: 05-22-2026 Urine microalbumin profile DTa P,Tdap,Td Vaccine (7 - Td or Tdap) [facility] Start: 06-15-2025 [facility] Start: 06-04-2025 Influenza vaccination Influenz a Vaccine (#1) [facility] Start: 04-05-2025 End: 04-05-2025 [facility] Start: 03-19-2025 End: 03-19-2025 [facility] Start: 12-06-2024 [facility] Start: 10-04-2024 Medicare Advantage A nnual Wellness Visit Medicare Advantage Annual Wellness Visit [facility] Start: 06-04-2024 Covid-19 Vaccine () Covid-19 Vaccine () [facility] Start: 06-04-2024 Influenza vaccination Influenz a Vaccine (#1) [facility] Start: 12-25-2023 End: 12-25-2023 [facility] Start: 10-04-2023 Depression Assessment Depression Ass essment [facility] Start: 06-05-2023 [facility] Start: 01-02-2023 Emergency department visit low/moder severity EMERGENCY DEPT VISIT SF MDM [facility] Start: 2022 Lipid panel Lipid Screening [facility] Start: 06-04-2022 Influenza vaccination S [facility] Start: 10-04-2021 DEPRESSION ASSESSMENT DEPRESSION ASS ESSMENT [facility] Start: 06-04-2021 Influenza vaccination Flu vaccine (# 1) [facility] Start: 2006 Urine microalbumin profile DTA P,TDAP,TD (1 - Tdap) [facility] Start: 2005 Anxiety Screening Anxiety Screening [facility] Start: 2005 Depression Screening Depression Scre [facility] Start: 2005 HEPATITIS C SCREENING HEPATITIS C [facility] Start: 2005 Hepatitis C screening Hepatitis C [facility] Start: 2005 HIV SCREENING HIV SCREENING [facility] Start: 2005 HIV screening HIV Screening [facility] Start: 08-18-2000 Hepatitis B Vaccine (2 of 3 - 3-dose series) Hepatitis B Vaccine (2 of 3 - 3-dose series) [facility] Start: 1999 Adult depression scr eening assessment DEPRESSION SCREENING [facility] Start: 1999 COVID-19 Vaccine (1) COVID-19 Vaccin e (1) [facility] Start: 1992 COVID-19 VACCINE (#1) COVID-19 VACCI NE (#1) [facility] Start: 1992 COVID-19 Vaccine (1) COVID-19 Vaccin e (1) [facility] Start: 01-09-1988 COVID-19 Vaccine (#1) COVID-19 Vacci ne (#1) [facility] Start: 1987 HEPATITIS B (1 of 3 - 3-dose series) HEPATITIS B (1 of 3 - 3-dose series) [facility] Bacteria identified in Urine by Culture URINE CULTURE Microbiology Routine Dysuria 03/27/2022 3:49 PM EDT [facility] Work Phone: End: 03-17-2022 C. Trachomatis / [...] rences starting 05/02/2022 until 05/02/2022 [facility]sc[facility]ysis [facility] Work Phone: Organism count, micr oscopic method [facility] Work Phone: Patient Education [facility] Work Phone: Patient referral [facility] Work Phone: Streptococcus pyogen es Ag [Presence] in Throat by Immunofluorescence [facility] Work Phone: Urinalysis, blood, qualitative [facility] Work Phone: Urine microscopy: ep ithelial cells [facility] Work Phone: White blood cell count [facility] Work Phone: [facility] Immunizations Immunization Date Immunization Notes [facility]2025 tetanus toxoid, redu jerrell diphtheria toxoid, and acellular pertussis vaccine, adsorbed No Primary Care Physician [facility] 07-13-2023 influenza virus vacc ine, unspecified formulation Alex Landers MD Work Phone: [facility] 08-23-2020 influenza virus vacc ine, unspecified formulation JENNIFER VALLES MD [facility] 08-15-2020 influenza virus vacc ine, unspecified formulation JENNIFER VALLES MD [facility] 07-29-2019 influenza virus vacc ine, unspecified formulation JENNIFER VALLES MD [facility] 07-11-2018 influenza virus vacc ine, unspecified formulation JENNIFER VALLES MD [facility] 07-04-2018 influenza virus vacc ine, unspecified formulation JENNIFER VALLES MD [facility] 07-01-2017 influenza virus vacc ine, unspecified formulation JENNIFER VALLES MD [facility] 05-22-2016 tetanus toxoid, redu jerrell diphtheria toxoid, and acellular pertussis vaccine, adsorbed JENNIFER VALLES MD [facility] 07-20-2014 influenza virus vacc ine, unspecified formulation JENNIFER VALLES MD [facility] 07-20-2014 influenza, seasonal, injectable Kevin Glil PA-C Work Phone: [facility] 07-20-2014 pneumococcal polysaccharide vaccine, 23 valent JENNIFER VALLES MD [facility] 07-21-2000 hepatitis B pediatri c vaccine JENNIFER VALLES MD [facility] 07-21-2000 measles/mumps/rubell a virus vaccine JENNIFER VALLES MD [facility] 10-16-1988 measles/mumps/rubell a virus vaccine JENNIFER VALLES MD [facility] Payers Date Payer Category Payer Self-pay [id number] 2024 [facility] [id number] 2023 Medicare (Managed Care) [employer] [id number] 2016 Medicaid [employer] [facility] MEDICAID [id number] 2016-Present [phone] [address] [place] [address] Medicaid [id number] 2016 Medicaid [id number] 2015 Unknown [id number] 1987 Unknown [id number] 2.16.840.1.065189.3.579.2. 732 1987 Unknown [id number] 2.16.840.1.283853.3.579.2. 627 1987 Unknown [id number] 2.16.840.1.943289.3.579.2. 627 1987 Unknown [id number] 2.16.840.1.638218.3.579.2. 627 1987 Unknown [id number] 2.16.840.1.020207.3.579.2. 627 1987 Unknown [id number] 2.16.840.1.308502.3.579.2. 627 Unknown [id number] 2.16.840.1.279077.3.579.2. 462 Unknown [id number] 2.16.840.1.214797.3.579.2. 462 Unknown [id number] 2.16.840.1.202917.3.579.2. 462 Unknown [id number] 2.16.840.1.564494.3.579.2. 462 Unknown [id number] 2.16.840.1.071272.3.579.2. 462 Unknown [id number] 2.16.840.1.175718.3.579.2. 462 Unknown [id number] 2.16.840.1.053858.3.579.2. 462 Unknown [id number] 2.16.840.1.102561.3.579.2. 462 Unknown [id number] 2.16.840.1.298805.3.579.2. 462 Social History Date Type Detail Facility Start: 10-04-2016 Tobacco smoking stat [facility] Occasional tobacco smoker [employer] Work Phone: Start: 10-04-2016 End: 04-27-2025 Tobacco use and exposure User of smokeless tobacco [employer] Phone: Start: 08-16-2021 End: 04-27-2025 Alcohol intake Current drinker of alcohol (finding) [facility] Phone: Start: 10-04-2016 History SDOH Alcohol Comment socially [employer] Phone: Start: 1985 Sex Assigned At Not on file S [employer] Work Phone: Start: 02-06-2022 End: 05-02-2022 Exposure to SARS-CoV-2 (event) Not sure [facility] Start: 12-15-2021 End: 04-27-2025 Tobacco smoking status NHIS Ex-smoker [facility] Start: 12-16-2021 End: 05-02-2022 Alcohol intake Ex-drinker (finding) [facility] Phone: Start: 08-15-2018 End: 12-25-2023 Tobacco smoking consumption unknown (finding) [facility] Smokeless tobacc o user within last 30 days [facility] Sex Assigned At [facility] History of tobacco use Chews Tobacco [facility] Work Phone: Start: 08-20-2015 End: 04-27-2025 Cigarettes smoked current (pack per day) - Reported 0.3 [facility] History of tobacco use Snuff User [facility] Start: 07-20-2014 History SDOH Alcohol Comment occasional [facility] Start: 06-17-2015 End: 11-19-2023 Tobacco Comment vapor cigarettes [facility] History of tobacco use Current smoker [facility] Work Phone: Start: 04-15-2020 None [facility] Start: 12-01-2015 Alone [facility] Start: 1985 Sex Assigned At Male W [facility] History of tobacco use Cigarette Smoker C [facility] Start: 11-19-2023 End: 04-27-2025 Tobacco use panel [facility] Start: 03-19-2025 End: 06-16-2025 Tobacco smoking status NHIS Smokes tobacco daily (finding) [facility] Functional Status Date Assessment Result Facility 10-02-2022 Functional Status Room check performed [facility] 04-23-2015 Are you deaf, or do you have serious difficulty hearing No 04/23/2015 7:35 PM EDT Flores Navarro LPN No [facility] 04-23-2015 Are you blind, or do you have serious difficulty seeing, even when wearing glasses No 04/23/2015 7:35 PM EDT Flores Navarro LPN No [facility] 04-23-2015 Do you have serious difficulty walking or climbing stairs No 04/23/2015 7:35 PM EDT Flores Navarro LPN No [facility] 04-23-2015 Do you have difficul ty dressing or bathing No 04/23/2015 7:35 PM EDT Flores Navarro LPN No [facility] 04-23-2015 Because of a physica l, mental, or emotional condition, do you have difficulty doing errands alone such as visiting a physician's office or shopping No 04/23/2015 7:35 PM EDT Flores Navarro LPN No [facility] Mental Status Date Assessment Result Facility 12-06-2024 Cognitive function Level Of Cons ciousness Awake;Alert;Appropriate;Fol lows Commands [facility] Work Phone: 01-13-2023 Cognitive function Level Of Cons ciousness Awake;Alert;Appropriate;Fol lows Commands [facility] Work Phone: 10-02-2022 Mental Status Orientation Oriented x 4 [facility] 10-02-2022 Mental Status [facility] 07-30-2022 Cognitive function Level Of Cons ciousness Awake;Alert;Appropriate;Fol lows Commands [facility] Work Phone: 06-17-2022 Cognitive function Level Of Cons ciousness Awake;Alert;Appropriate;Fol lows Commands [facility] Work Phone: 04-23-2015 Because of a physica l, mental, or emotional condition, do you have serious difficulty concentrating, remembering, or making decisions Yes 04/23/2015 7:35 PM EDT Flores Navarro LPN Yes [facility] Clinical Notes 08-16-2021 to 06-15-2025 Note Date & Type Note Facility 06-15-2025 Discharge summary [facility] 06-15-2025 Discharge summary Note Date/Time June 15, 2025 11:40pm 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 He is up-to-date on tetanus. Dog is [...] Primary [Primary Care Provider] - Print Language: Albanian What to do if you have Problems For any increased pain, shortness of breath, bleeding, nausea or vomiting, chestpain, or any unexpected problems, contact your Primary Care Provider. Call [facility] ([phone]) or report to the closest Emergency Room. Call 911 if necessary. 06/15/25 8090 <Electronically signed by Chidi Hermosillo DO> Cosigner Signature (if applicable): CC: No Primary Care Physician ~ Signed [facility] Work Phone: 1(680) 870-425507-25-2025 NoteHNO ID: [id number] Author: EMIR SIMONS PA-C Service: ? Author Type: Physician Business Insurance Agent Type: Progress Notes Filed: 04/27/2025 18:40 Note [...] Diagnostic procedures: low Management options: low [facility] History of Present illness Narrative* Emir Simons [...] options: edith Simons PA-C [facility] [facility] Medical Records Department [address] [place] [address] Emergency Department Summary 04/05/25 MR#: [id number] Acct: [id number] Name: GILBERTO JOHNSON Rep #:[id number] : [...] 15 Psych: Cooperative, appropriate mood and affect [facility] Medical History Acute sinusitis, unspecified Pancreatitis [...] IMPRESSION: No acute intracranial findings Reading Location: [place] [address] Discharge Plan Triage Chief Complaint: Laceration ED [...] concussions if you develop one. Print Language: Albanian Disposition Disposition: Home, Self Care What to do if you have Problems For any increased pain, shortness of breath, bleeding, nausea or vomiting, chestpain, or any unexpected problems, contact your Primary Care Provider. Call [facility] ([phone]) or report tothe closest Emergency Room. Call 911 if necessary. 04/05/25 0250 Cosigner Signature (if applicable): CC: No Primary Care Physician ~ Signed [facility]07-03-2025 Radiology Diagnostic study note [facility] Imaging Services [address] [place] [address] Brain/Head without Contrast MR#: [id number] Acct: [id number] Name: GILBERTO JOHNSON Rep #: [id number] : 1985 M 39 From: Nina Foster MD PCP: Care Physician,No Primary Status: REG ER Study:Brain/Head without Contrast Date of Exa m: 04/05/25 Exam# [id number] Ordering Dr: Chidi Xiao DO PROCEDURE: BRAIN/HEAD [...] IMPRESSION: No acute intracranial findings Reading Location: [place] [address] CC: Dr. Chidi Hermosillo DO; No Primary Care Physician ~ Teachers' Assistant: Signed [facility]03-13-2025 NoteHNO ID: [id number] Author: ALEX LANDERS MD Service: ? Author Type: Physician Type: Progress Notes Filed: 12/14/2024 19:08 Note Text: [facility] Subjective Gilberto Johnson is a [...] cetirizine and expectant management. Alex Landers MD [facility] History of Present illness Narrative* Alex Landers [...] cetirizine and expectant management. Alex Landers MD [facility] Procedures [facility] History of Present illness Narrative* Travis Hameed, PA - 11/19/2023 5:55 PM EST This note was created using Sanaexpertriter. Subjective Gilberto Johnson is a 38 year [...] RELIEF) 50 mcg/actuation nasal spray Use 1 [place] in each nostril twicedaily. loratadine (CLARITIN) 10 mg tablet Take 1 tablet by mouth once daily. naproxen (NAPROSYN) 500 mg tablet Take 1 tablet by mouth twice daily as needed (pain/inflammation, take with food.). lxmhshveudHMWNR-evpuur-cgqzwrltv (BMX 1:1:1) 1:1:1 liqd Mix in equal [...] ER evaluation. LATOYA Kendrick documented [facility] Hospital Discharge instructions Additional Instructions Please continue your antibiotic that was given to you at your last visit and wash the area with soap and water. The remaining redness and swelling will resolve over the next 2 to 3 days and then the scab will form.[facility] Work Phone: 1(689) 239-879302-28-[address] Elena [facility] December 01, 2022 9:30pm Note Date/Time December 01, 2022 9:28pm [facility] Medical Records Department [address] [place] [address] Emergency Department Summary 12/01/22 MR#: [id number] Acct: [id number] Name: GILBERTO JOHNSON Rep #:[id number] : [...] your Primary Care Provider. Call [facility] ([phone]) or report to the closest Emergency Room. Call 911 if necessary. 12/01/222129 <Electronically signed by Michel Elena MD> Cosigner Signature (if applicable): CC: NEVAEH FRAGA ~ Signed [facility] Work Phone: 1(849) 667-412712-30-2022 Hospital Discharge instructions Patient Education 10/02/2022 20:40:33 [...] in 1/2 cup of warm water An bihw-cbb-ptnpcgk anesthetic gargle Use medicine for more relief Zcud-tgn-wfujcbz medicine can reduce sore throat symptoms. Ask [...] swollen glands in the neck or jaw [phone] [employer]. [address] [place] [address]. All rights reserved. This information is not intended as a substitute for professional medical care. Always follow yourhealthcare professional's instructions. Follow Up Care 10/02/2022 19:21:21 With:NEVAEH FRAGA MD Address: [address] [place] [phone] When:2-4 days [facility] 12-30-2022 Emergency department Discharge summary Discharge Instructions Thank you for allowing [facility] to assist you with your healthcare needs. The following is importantdischarge information regarding your hospital visit. Diagnosis from Today's Visit swollen gland in throat What to Do Next Instructions from Your Care Team No qualifying data available. Post Acute Orders No qualifying data available. You Need to Schedule the Following Appointments Follow Up with NEVAEH FRAGA MD When Within 2-4 days Where: [address] [place] [phone] Allergies amoxicillin penicillin (Rash) Medications Please ask [...] in 1/2 cup of warm water An erow-otf-ngpnlwi anesthetic gargle Use medicine for more relief Mjke-spg-jwqgbdg medicine can reduce sore throat symptoms. Ask [...] swollen glands in the neck or jaw [phone] [employer]. [address] [place], [place] [address]. All rights reserved. This information is not intended as a substitute for professional medical care. Always follow yourhealthcare professional's instructions. Additional Information VACCINATE! IT SAVES LIVES! Members of the community who have not yet received the COVID-19 vaccine and would like to receive it can visit one of [facility] vaccine clinics. There are many vaccine clinic locations within the [facility]. For locations and available times, please visit [email or web address]. It is important to note that some COVID mobile vaccine clinics are held outdoors and may be canceled in rainy orstormy conditions. To learn more about pediatric vaccinations (ages 5-11), we invite you to visit the [facility] webpage. [email or web address] learn more about the COVID-19 vaccine, we invite you to visit the [facility] website for a list of frequently asked questions. [email or web address] [facility] [employer] Patient Portal Access Instructions: Stay connected with your healthcare team and access your personal medical information anytime with the [employer] Patient Portal. If you would like a full copy of your medical records please contact the [facility] Medical Records Department Wednesday through Wednesday between 8a.m. and 4:30p.m. Please follow the directions below to access the portal: 1.Access the email account you provided upon registration to the [facility].2.Look for an invitation email from [facility].3.Open the email and access the invitation link: Accept Invitation to [employer]4.Fill in the required lambert to create your account. Sign into [email or web address] with your username and password that you [...] you will allow to register on the [employer] Patient Portal for access to your information. You can also access the [employer] Patient Portal on the [employer]. Simply click on Health Records under Shots and then click on the [employer] logo. HOW TO SAFELY DISPOSE OF PRESCRIPTION [...] Call your local pharmacy or go to [email or web address] to find one close to you.3.Make use of household items: Use cat litter or old coffee grounds to dispose medications if other options arenot available. Mix your drugs with these household products, seal them in an airtight container andthrow it into the garbage. Call [facility]: [phone] to be sure your drugs can be [...] aware that I should contact my doctor. Patient/Mold Sprayer Signature: Date/Time: Relationship to Patient: Witness Name/Signature: Date/Time: [facility]09-27-2022 Miscellaneous Notes* Telephone Encounter - Yoli Jensen LPN - 06/30/2022 11:38 AM EDT Faxed office visit notes from visit on 03/27/2022 with Kevin Gill PA-C to [facility]. Yoli Jensen LPN * Telephone Encounter - Yoli Jensen LPN - 06/30/2022 11:35 AM EDT Received fax to request records from referrals dated 03/15/22-03/21/2022. Yoli Jensen LPN [facility] Miscellaneous Notes* Telephone Encounter - Nandini [...] No infection in the urine JORGE Calderon, [place], [place] documented in [facility] Hospital Discharge instructions* Instructions* Bassem Elena [...] important. You should call the [facility] on Wednesday and ask for an appointment to be seen as soon as they can work you in; at that time they may decide that a cystoscopy or other testing is necessary to furtherevaluate the cause of your bloody urine. Also make [facility] [place] [facility] [place] [facility]; we are not making [...] sent through Care Everywhere. * Anxiety Disorder (Albanian) * Hematuria (Albanian) * Cystoscopy: Pre-op (Albanian) documented in this encounterSUM[facility] Work Phone: 1(777) 113-498306-24-2022 History of Present illness Narrative* Kevin Gill [...] RELIEF) 50 mcg/actuation nasal spray Use 1 [place] in each nostril twicedaily. loratadine (CLARITIN) 10 [...] Plan: Appointment with Kevin. documented in this [facility]06-[facility]22 Miscellaneous Notes* Telephone Encounter - Yoli Jensen LPN - 03/25/2022 2:35 PM EDT Received outside medical records from [facility]. Patient has appointment Wednesday. Provided to Kevin Gill PA-C to review and to operations to be scanned. Yoli Jensen LPN documented in this [facility]06-[facility]22 Hospital Discharge instructions* Instructions* Florecita Caruso MD - 03/23/2022 Take your anxiety medications when you get home. Call your doctor tomorrow for reevaluation. * Attachments The following attachments cannot be sent through Care Everywhere. * Anxiety Disorder (Albanian) * Dysuria (Albanian) documented in this encounterSUMJiongji App Work Phone: 1(380) 392-524505-16-2022 Hospital Discharge instructions* Instructions* Lynn Gutierrez DO - 02/16/2022 You have seasonal allergies, you are given a prescription for Zyrtec and Nasacort. Follow-up with your primary care physician. Return to the emergency department for new or worsening symptoms. * Attachments The following attachments cannot be sent through Care Everywhere. * Allergies: Seasonal (Albanian) documented in this [employer] Work Phone: 1(335) 526-407303-20-2022 Note. MICRO - Microbiology PROCEDURE: Urine Culture [...] Locations *1: This test was performed at: [facility], [address] [place] [address], [address] , [facility] ([place])12-19-2021 Hospital Discharge instructions Patient Education 12/19/2021 10:17:36 [...] problems caused by scarring or long-term infections. [id number] [employer] [place] [address]. All rights reserved. This information is not intended as a substitute for professional medical care. Always follow yourhealthcare professional's instructions. Follow Up Care 12/19/2021 09:24:18 With:your urologist Address: When: Unknown [facility] 11-13-2021 Hospital Discharge instructions* Instructions* Florecita Lombardi MD - 08/16/2021 Return if high fever develops or increased shortness of breath * Attachments The following attachments cannot be sent through Care Everywhere. * Bronchitis (Albanian) [facility] Work Phone: Discharge summary Author Dr. Richards [facility] January 13, 2023 6:43am Note Date/Time January 13, 2023 6:4 3am [facility] Medical Records Department [address] [place] [address] Emergency Department Summary 01/13/23 MR#: [id number] Acct: [id number] Name: GILBERTO JOHNSON Rep #:[id number] : [...] he has a primary care physician in [place] but cannot get there because he does [...] this to him again but I did assessment counselor him that I do not find [...] your Primary Care Provider. Call [facility] ([phone]) or report to the closest Emergency Room. Call 911 if necessary. 01/13/23 0643 <Electronically signed by Wally Richards DO> Cosigner Signature (if applicable): CC: No Primary Care Physician ~ Signed [facility] Work Phone: Discharge summary Author Chidi Hermosillo [facility] Note Date/Time April 05, 2025 2:50a m [facility] Medical Records Department [address] [place] [address] Emergency Department Summary 04/05/25 MR#: [id number] Acct: [id number] Name: GILBERTO JOHNSON Rep #:[id number] : [...] 15 Psych: Cooperative, appropriate mood and affect [facility] Medical History Acute sinusitis, unspecified Pancreatitis [...] IMPRESSION: No acute intracranial findings Reading Location: [place] [address] Discharge Plan Triage Chief Complaint: Laceration ED [...] concussions if you develop one. Print Language: Albanian Disposition Disposition: Home, Self Care What to do if you have Problems For any increased pain, shortness of breath, bleeding, nausea or vomiting, chestpain, or any unexpected problems, contact your Primary Care Provider. Call [facility] ([phone]) or report to the closest Emergency Room. Call 911 if necessary. 04/05/25 0250 <Electronically signed by Chidi Hermosillo DO> Cosigner Signature (if applicable): CC: No Primary Care Physician ~ Signed [facility] Work Phone: Evaluation + Plan note Future Appointments Appointment Date:01/30/2022 01:20:00 PM Scheduled Provider:JEANNE JULIEN Location:UROLOGY Appointment Type:[employer] Diagnostic Tests Pending * Urine Culture 12/19/21 [facility] Evaluation note* Diagnosis Bronchitis- Primary Bronchitis, [...] Diagnosis Dysuria- Primary [facility]* Diagnosis Abnormal laboratory test- Primary Other abnormal clinical finding Anxiety state Anxiety state, unspecified documented in this encounter [facility] Work Phone: Evaluation note* Diagnosis Acute cystitis with hematuria- Primary Acute cystitis documented in this encounter [facility] Work Phone: Evaluation noteNo assessment information available [facility] Work Phone: Evaluation note* Diagnosis Mouth sore- Primary Other and unspecified diseases of the oral soft tissues Bacterial sinusitis Unspecified sinusitis (chronic) [facility]* Diagnosis Post-nasal drainage- Primary Unspecified sinusitis (chronic) documented in this encounter [facility] note* Diagnosis Acute non-recurrent sinusitis, unspecified location- Primary documented in this encounter [facility] course Narrative No data available for this section [facility] Hospital Discharge instructions* Attachments The following attachments cannot be sent through Care Everywhere. * Headache (Albanian) documented in this [facility] Work Phone: Hospital Discharge instructions* Attachments The following attachments cannot be sent through Care Everywhere. * Anxiety Disorder (Albanian) documented in this [facility] Work Phone: Hospital Discharge instructions* Attachments The following attachments cannot be sent through Care Everywhere. * Dysuria (Albanian) documented in this [facility] Work Phone: Hospital Discharge instructions No data available for this section [facility] Hospital Discharge instructions* Attachments The following attachments cannot be sent through Care Everywhere. * UTI (Urinary Tract Infection): Male (Albanian) documented in this [facility] Work Phone: Hospital Discharge instructions [...] get a call then that means is negative.[facility] Work Phone: Hospital Discharge instructions Additional Instructions Follow-up with your primary care physician within next 3 to 5 days.[facility] Work Phone: Hospital Discharge instructions Additional Instructions Zofran as needed for nausea. Plenty of fluids and rest. Follow-up with a local primary care physician if not improving.[facility] Work Phone: Hospital Discharge instructionsAdditional Instructions Monitor for signs of infection of your abrasion. Follow-up with your primary care physician if you do not have 1 follow-up with the one provided above. Monitor for signs of concussion which we talked about. I also printed out some information on concussions if you develop one.[facility] Work Phone: Hospital Discharge instructionsAdditional Instructions Follow-up with your primary care physician. If you do not have one follow-up with the one provided above. No lakes, mccormick, oceans, hot tubs until fully healed. Monitor for signs of infection. Take all of your antibiotics. You are given your first dose here in the emergency department.[facility] Work Phone: Progress note No data available for this section [facility] Reason for referral (narrative)No reason for referral information availableWUniversity Hospitals [facility] Work Phone: Summary Purpose Family History No Family History Records FoundNo Family History Records FoundNo Family History Records FoundNo Family History Records FoundNo Family History Records FoundNo Family History Records Found Advance Directives No Advanced Directives Records Found Advance Directive Response Recorded Date/ Time Living Will No June 17, 2022 8:33pm Power of Supervisor Metal Hanging No June 8:33pm Advance Directive Response Recorded Date/ Time Living Will No July 29 11:33pm Power of Supervisor Metal Hanging No July 29, 2022 11:33pm Advance Directive Response Recorded Date/ Time Living Will No August 20, 2 022 12:05pm Power of Supervisor Metal Hanging No August 20, 2022 12:05pm Advance Directive Response Recorded Date/ Time Living Will No September 03 3:25pm Power of Supervisor Metal Hanging No September 03, 2022 3:25pm Advance Directive Response Recorded Date/ Time Living Will No September 09 3:07pm Power of Supervisor Metal Hanging No September 09, 2022 3:07pm Advance Directive Response Recorded Date/ Time Living Will No December 01, 2 023 8:51pm Power of Supervisor Metal Hanging No December 01, 2022 8:51pm Advance Directive Response Recorded Date/ Time Living Will No January 02, 2023 6:38am Power of Supervisor Metal Hanging No January 02 6:38am Advance Directive Response Recorded Date/ Time Living Will No January 02, 2023 9:36pm Power of Supervisor Metal Hanging No January 02 9:36pm Advance Directive Response Recorded Date/ Time Living Will No January 13, 2023 6:20am Power of Supervisor Metal Hanging No January 13 6:20am Advance Directive Response Recorded Date/ Time Living Will No February 03, 2023 6: 17am Power of Supervisor Metal Hanging No February 03, 2023 6:17am Advance Directive Response Recorded Date/ Time Living Will No February 28, 2023 8 :00pm Power of Supervisor Metal Hanging No February 28, 2023 8:00pm Advance Directive Response Recorded Date/ Time Living Will No June 05 6:46pm Power of Supervisor Metal Hanging No June 05, 2023 6:46pm Advance Directive Response Recorded Date/ Time Living Will No December 25, 2023 3:48am Power of Supervisor Metal Hanging No December 24 3:48am Advance Directive Response Recorded Date/ Time Living Will No December 06, 2024 2:33pm Do you have a Healthcare Power of Supervisor Metal Hanging? No December 06, 2024 2:33pm Do you have a Healthcare Power of Supervisor Metal Hanging? No March 19, 2025 12:45am Advance Directive Response Recorded Date/ Time Living Will No December 06, 2024 2:33pm Do you have a Healthcare Power of Supervisor Metal Hanging? No December 06, 2024 2:33pm Do you have a Healthcare Power of Supervisor Metal Hanging? No March 19, 2025 12:45am Do you have a Healthcare Power of Supervisor Metal Hanging? No April 05, 2025 1:17am Advance Directive Response Recorded Date/ Time Do you have a Healthcare Power of Supervisor Metal Hanging? No June 16, 2025 12:04am Do you have a Healthcare Power of Supervisor Metal Hanging? No March 19, 2025 12:45am Do you have a Healthcare Power of Supervisor Metal Hanging? No April 05, 2025 1:17am Reason for Referral Specialty Diagnoses / Procedures Referred By Rosa M t Referred To Contact Family Medicine Diagnoses Acute nonintractable headache, unspecified headache type Tereso Kuo MD [address] [place] [address] Argelia Byers [facility] [place] [address] Referral ID Status Reason Start Date Expiration Date V isits Requested Visits Authorized [id number] Open Specialty Services Required 10/04/2021 10/04/2022 1 1 Scheduling Instructions [address] [place] [address] Chief Complaint and Reason for Visit Chief [...] section and content) DATE CREATED AUTHOR 03/30/2018 [place] [employer] DATE CREATED AUTHOR AUTHOR'S ORGANIZ ATION 10/27/2020 [facility] DATE CREATED AUTHOR AUTHOR'S ORGANIZ ATION 05/05/2022 [facility] DATE CREATED AUTHOR AUTHOR'S ORGANIZ ATION 10/16/2022 [facility] ([place]) DATE CREATED AUTHOR AUTHOR'S ORGANIZ ATION 04/29/2025 [facility] DATE CREATED AUTHOR AUTHOR'S ORGANIZ ATION 06/20/2025 [facility] Reason for Visit (unrecogniz ed section and [...] Comments Results 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 Comments Mouth Sores L [...] or prosecute any alcohol or drug abuse patient.[facility] HospitalIn the event this information is protected by the Federal Confidentiality of Alcohol and Drug Abuse Patient Records regulations: The Federal rules restrict any use of the information to criminally investigate or prosecute any alcohol or drug abuse patient.[facility] HospitalIn the event this information is protected by the Federal Confidentiality of Alcohol and Drug Abuse Patient Records regulations: The Federal rules restrict any use of the information to criminally investigate or prosecute any alcohol or drug abuse patient.[facility] HospitalIn the event this information is protected by the Federal Confidentiality of Alcohol and Drug Abuse Patient Records regulations: The Federal rules restrict any use of the information to criminally investigate or prosecute any alcohol or drug abuse patient.[facility] HospitalIn the event this information is protected by the Federal Confidentiality of Alcohol and Drug Abuse Patient Records regulations: The Federal rules restrict any use of the information to criminally investigate or prosecute any alcohol or drug abuse patient.[facility] HospitalIn the event this information is protected by the Federal Confidentiality of Alcohol and Drug Abuse Patient Records regulations: The Federal rules restrict any use of the information to criminally investigate or prosecute any alcohol or drug abuse patient.[facility] HospitalIn the event this information is protected by the Federal Confidentiality of Alcohol and Drug Abuse Patient Records regulations: The Federal rules restrict any use of the information to criminally investigate or prosecute any alcohol or drug abuse patient.[facility] Care Teams (unrecognized sec tion and content) Voip Network Engineer Relationship Specialty Start Date End Date Dalton Art DO [address] [place] [address] PCP - General Family Practice 10/05/21 Voip Network Engineer Relationship Specialty Start Date End Date Dalton Art DO [address] [place] [address] PCP - General Family Practice 10/05/21 Voip Network Engineer Relationship Specialty Start Date End Date Dalton Art, [address] [facility] [place] [address] PCP - General Family Practice 10/05/21 Voip Network Engineer Relationship Specialty Start Date End Date Dalton Art, DO [address] [facility] [place] [address] PCP - General Family Medicine 10/05/21 Team [...] Dr. Pam Bear MD Emergency Provider Active Voip Network Engineer Relationship Specialty Start Date End Date Dalton Art DO [address] [facility] [place] [address] PCP - General Family Medicine 10/05/21 Voip Network Engineer Relationship Specialty Start Date End Date Dalton Art DO [address] [facility] [place] [address] PCP - General Family Medicine 10/05/21 Vania Szymanski, PATROL SUPERVISOR.FIELD ASSOCIATE [address] [place] [address] Cataloging Assistant Family Medicine 09/10/24 Royer Green PATROL SUPERVISOR.FIELD ASSOCIATE [facility] [address] [address] Cataloging Assistant Family Medicine 11/14/24 Team Status: Active Member [...] April 05, 2025 End: April 05, 2025 Voip Network Engineer Relationship Specialty Start Date End Date Dalton Art DO [address] [facility] [address] [place] [address] PCP - General Family Medicine 10/05/21 Vania Szymanski, SHANDRA.FIELD ASSOCIATE [address] [place] [id number] Cataloging Assistant Family Medicine 09/10/24 Royer Green APRN.FIELD ASSOCIATE [facility] K[place]Y [place] [address] Cataloging Assistant Family Medicine 11/14/24 Team Status: Inactive Member [...] Personnel Name: NEVAEH FRAGA MD Address: Address: [address] [place] [address] Care Team Personnel Name: NEVAEH FRAGA MD Member Role: Primary Care Physician Address: Address: [address] [place] [address] Name: Lisa Szymanski RN Position: AO RN Member Role: RN Name: MCKAYLA CARSON DO Position: ED Physician Member Role: Attending Physician Address: Address: [facility] [address] Care Team Related Persons Name: URCONIS, [...] BE BASED ON THE PRIMARY CLINICAL RECORDS. [employer] provides no warranty or guarantee of the accuracy or completeness of information in this document.
[2025-09-04] MEDS: Acetaminophen/Butalbital/Caffe 1 Tablet PO (20:18)
[2025-09-04] MEDS: Lidocaine 2% Viscous15 ML UDC 15 ML PO (20:18)
[2025-09-04 20:21] VITALS: BP 144/73; PULSE 100; RESP 20; TEMP 36.6; O2SAT 100
--- NOTE | 2025-09-04 20:48 | EX.ED.DYSGE1 ---
HPI History of Present Illness Chief Complaint: Dizziness Informant: patient Narrative Narrative: 40-year-old male presenting to the emergency room requesting a GI cocktail. Patient states that his stomach is inflamed and he has a history of GERD. He states he used to be on Pepcid but does not take it currently. He states that he would be willing to restart it. He states the GI cocktail is typically helped him in the past. He has been having headaches which he relates to problems with his sinuses. He states his sinuses are inflamed because of the basement that he is living in and there mold problems. He has been using Claritin and nasal steroids. He states that sometimes he will blow his nose and his ears will pop and get clogged and he has episodes of dizziness. He states he would like an Excedrin for his headache. [facility] Medical History Acute sinusitis, unspecified Pancreatitis Chronic GERD Tobacco use Anxiety Home Medications ?Medication ?Instructions ?Recorded ?Last Taken ?Type buspirone 5 mg tablet 10 mg PO TID PRN Anxiety 06/10/17 04/05/25 History quetiapine 25 mg tablet 25 mg PO TID 06/28/21 04/05/25 History amoxicillin 875 mg-potassium 1 tab PO BID 5 days #10 tabs 06/15/25 Unknown Rx clavulanate 125 mg tablet doxycycline hyclate 100 mg capsule 100 mg PO BID 08/22/25 Unknown History fluticasone propionate 50 1 spray intranasal DAILY 08/22/25 Unknown History mcg/actuation nasal spray,suspension loratadine 10 mg tablet (Allergy 10 mg PO DAILY 08/22/25 Unknown History Relief (loratadine)) codeine 10 mg-guaifenesin 100 mg/5 10 ml PO 4X/DAY PRN cough 5 days 08/23/25 Unknown Rx mL oral liquid #200 mL prednisone 20 mg tablet 40 mg (2 x 20 mg) PO DAILY 5 days 08/23/25 Unknown Rx #10 tabs famotidine 20 mg tablet 20 mg PO BID #28 TABLETS 09/04/25 Unknown Rx Allergy/AdvReac Type Severity Reaction Status Date / Time Penicillins Allergy Unknown Verified 09/04/25 19:51 sumatriptan (From Imitrex) Allergy Unknown Verified 09/04/25 19:51 sumatriptan succinate (From Allergy Unknown Verified 09/04/25 19:51 Imitrex) amoxicillin (Amoxicillin) AdvReac Nausea/Vom/ Verified 09/04/25 19:51 Diarrhea Surgical History History of herniorrhaphy No significant past surgical history Social History household members: family Smoking Status: Current every day smoker tobacco type: cigarettes and e-cigarettes Smokeless tobacco user: chewing tobacco how long ago did patient quit smoking: Former cigarette tobacco use, now chew tobacco 2-3 wads daily. alcohol intake: never details: Patient states he currently is not drinking any alcoholic beverages substance use type: does not use ROS ROS ED Constitutional Constitutional ED: Denies chills, fever(s) or weight loss Eyes Eyes: Denies change in vision or diplopia ENT ENT ED: Reports ear pain, rhinorrhea and other Details: Dizziness ; Denies sore throat Cardiovascular Cardiovascular: Denies chest pain, orthopnea, palpitations or racing heartbeat Respiratory/Chest Respiratory/Chest: Denies cough, dyspnea or orthopnea Gastrointestinal Gastrointestinal: Reports abdominal pain; Denies diarrhea, nausea or vomiting Genitourinary Genitourinary ED: Denies dysuria, hematuria or urinary frequency Musculoskeletal Musculoskeletal: Denies arthralgias or myalgias Integumentary Denies abscess or rash Neurologic Neurologic: Reports headache(s); Denies weakness Psychiatric Psychiatric: Denies anxiety, depression, suicidal ideation or suicidal thoughts Endocrine Endocrinology: Denies polydipsia, polyphagia or polyuria Allergic/Immunologic Allergic/Immunologic ED: Denies mouth swelling, tongue swelling or urticaria EXAM Physical Exam Const Vital Signs: 09/04/25 19:49 09/04/25 20:21 Temperature 97 F L 97.9 F Temperature Source Temporal Pulse Rate 100 100 Respiratory Rate 20 H 20 H Blood Pressure 144/73 H 144/73 H Blood Pressure Mean 96 96 Pulse Ox 100 100 Oxygen Delivery Method Room Air Positive well nourished and well developed General Appearance ED: well developed HEENT Reports normocephalic, head/scalp atraumatic, TM's clear and moist mucous membranes Tympanic Membrane ED: Yes TM's clear Eyes PERRL and EOMs intact bilaterally Neck no lymphadenopathy, supple and no JVD Resp normal respiratory effort and clear to auscultation bilaterally Cardio regular rate, regular rhythm and no murmurs GI normal to inspection, nondistended, normoactive bowel sounds and non-tender Palpation: soft Back/Spine no CVA tenderness and normal ROM Extremity normal to inspection General Extremety ED: Negative for edema General Extremity: Negative for edema Neuro oriented x3 and CN's II-XII intact bilaterally Sensorium / Orientation: alert Motor Exam: strength 5/5 throughout Psych mental status grossly normal Mood & Affect: Negative for depressed or tearful Skin no rashes or lesions noted and no wounds MDM MDM MDM Narrative Medical decision making narrative: Differential diagnosis includes GERD gastric ulcer esophagitis gastritis sinusitis eustachian tube dysfunction. Patient will be given a GI cocktail and I can write him for a 2-week course of Pepcid. I believe that his intermittent dizziness is most likely related to his eustachian tube dysfunction. He received a Excedrin for headache. Patient to follow-up with primary care. History & Record Review Discussion w/independent historian: Patient Additional record(s) reviewed:: Prior ED visit and Prior labs Discharge Plan Triage Chief Complaint: Dizziness ED Provider: John Taveras Dx/Rx/DC Orders Clinical Impression: GERD (gastroesophageal reflux disease), Headache Instructions: GERD Dc Prescriptions: New famotidine 20 mg tablet 20 mg PO BID Qty: 28 0RF No Action buspirone 5 MG tablet 10 mg PO TID PRN (Reason: Anxiety) quetiapine 25 mg tablet 25 mg PO TID amoxicillin-pot clavulanate 875-125 mg tablet 1 tab PO BID 5 Days Qty: 10 0RF doxycycline hyclate 100 mg capsule 100 mg PO BID fluticasone propionate 50 mcg/actuation spray,suspension 1 spray INTRANASAL DAILY loratadine [Allergy Relief (loratadine)] 10 mg tablet 10 mg PO DAILY prednisone 20 mg tablet 40 mg PO DAILY 5 Days Qty: 10 0RF codeine-guaifenesin 10-100 mg/5 mL liquid 10 ml PO 4X/DAY PRN (Reason: cough) 5 Days Qty: 200 0RF Primary Care Provider: Agnieszka Torres Referrals: Care Physician,No Primary [Non-Staff, Medical] Print Language: Chinese Disposition Disposition: Home, Self Care Discharge Date/Time: 09/04/25 20:22
== END 2025-09-04 20:22 | disposition home or self-care (01) ==
LOC: ED 20:15
PROVIDERS: Emergency Provider Emergency Medicine; PCP Physician Assistant; Visit Provider Emergency Medicine
DX: K21.9 Gastro-esophageal reflux disease without esophagitis (principal); R51.9 Headache, unspecified; F17.210 Nicotine dependence, cigarettes, uncomplicated; F17.290 Nicotine dependence, other tobacco product, uncomplicated
CPT/HCPCS: 99283

== ENCOUNTER 2025-09-26 10:56 | Emergency (ER) | payer MEDICARE, MEDICAID, SELFPAY ==
[2025-09-26 10:56] VITALS: BP 129/84; PULSE 83; RESP 16; TEMP 36.6; O2SAT 100; BMI 23.6
--- OUTSIDE RECORDS SUMMARY | 2025-09-26 11:28 | XMS RPT_ITS | CCD ---
Author Organization [facility] CliniSymn Care Team Providers Care Timber Sizer Name Role Phone MILE SANCHEZ Unavailable Unavailable [...] Dalton Art DO Primary Care Provider Stephon STAFF MIDWIFE/APPRENTICESHIP DIRECTOR.PORT PATROL OFFICER, Vania Unavailable Stone STAFF MIDWIFE/APPRENTICESHIP DIRECTOR.PORT PATROL OFFICER, Royer Unavailable Care Physician, No Primary Primary Care Provider Unavailable Abdulaziz LOBO, Dr. Bernard Attending Provider Dr. Marco Antonio Cintron MD Emergency Provider Jaimee KILGORE, Dr. Murillo Emergency Provider DALTON ART Primary Care Unavailable EMIR SIMONS Attending Unavailable DALTON ART Primary Care Unavailable Care Physician, No Primary Primary Care Provider Unavailable Abdulaziz LOBO, Dr. Bernard Attending Provider [phone] Dr. Marco Antonio Cintron MD Emergency Provider [...] Drug Allergy 10-04-19 17 Nausea/Vom/Navneet [facility] ([facility] sources) Penicillins; Translations: [PENICILLINS] Propensity to adverse reactions to drug (disorder) 07-20-20 14 Vomiting [facility] (20 sources) SUMAtriptan; Translations: [SUMATRIPTAN] Drug Allergy 05-01-20 15 Other: See Comments [facility] Work Phone: (3 sources) Penicillin; Translations: [penicillins] Drug Allergy Rash [facility] (8 sources) Amoxicillin; Translations: [AMOXICILLIN (BULK)] Drug Allergy 11-23-19 15 Vomiting [facility] (17 sources) SUMAtriptan; Translations: [sumatriptan succinate] Drug Allergy 06-24-20 21 Unknown [facility] (4 sources) Sulfamethoxazole / Trimethoprim; Translations: [SULFAMETHOXAZOLE-T RIMETHOPRIM] Drug Allergy 11-19-19 24 Swelling [facility] (1 source) SUMAtriptan Drug Allergy 06-15-20 25 [facility] Repository Medications Current Medications Medication Drug [...] for headache Start Date: 06/08/17 Status: Ordered [id number] 200 actuat albuterol 0.09 mg/actuat metered dose [...] Start: 06-10-2017 take 2 tablets by mo [facility] three times daily as needed for anxiety [...] Comment on above: [facility] DAILY diphenhydrAMINE-maalox- lidocaine (BMX 1:1:1) 1:1:1 liqd (3 sources) Start: 11-19-2023 diphenhydrAMINE-maalox -lidocaine (BMX 1:1:1) 1:1:1 liqd Mix in equal amounts - 1 T every 2hrs as needed for mouth pain, Swish/swallow or expectorate. (8oz) 240 mL 11/19/2023 Active Start: 11-19-2023 diphenhydrAMIN H-grksll-gsuhlghgp (BMX 1:1:1) 1:1:1 liqd Mix in equal [...] Start: 09-19-2024 take 1 capsule by mo [facility] twice daily Doxycycline Monohydrate 100 mg [...] Indications: Viral URI with cough Use 1 [place] in each nostril twice daily. 1 Each 10/05/2021 Active Start: 06-27-2017 take 1 dose nasal ro tazlina twice daily fluticasone 50 mcg/inh NASAL spray Dose = 1 spray(s), Nostril, each, BID, 0 Refill(s) Start Date: 06/27/17 Status: Ordered Comment on above: Use 1 [place] in each nostril twice daily. fluticasone 50 [...] Start Date: 11/13/16 Status: Ordered MELATONIN PO Omrro e by mouth 0 Active naproxen 500 [...] th every 8 hours as needed. Pancrelipase, Xfo-Yvzu-Woea, (CREON PO) (8 sources) Pancrelipase, Yfb-Xgod-Fqny, (CREON PO) Take by mouth 0 Active [...] Class(es) Dates Sig (Normalized) Sig (Original) amylase 64775 unt / lipase 3000 unt / protease 9500 unt delayed release oral capsule (18 sources) Start: 06-17-2021 End: 12-25-2023 take 0992-6504 capsules by mouth three times daily Nmenrh-Hvrhqerr-Ew ylase (Creon) 3,000-9,500- 15,000 unit Capsule,Delayed Release(Dr/Ec) [...] 05, 2013 7:43am take 1 capsule by [facility] three times daily clindamycin (CLEOCIN) 300 [...] on above: Take 1 capsule by mo [facility] once daily. FLUoxetine 20 mg oral capsule (6 sources) Serotonin Reuptake Inhibitor Start: 08-19-20 End: 12-15-19 take 1 capsule by mouth once daily FLUoxetine (PROZAC) 20 mg capsule Indications: Anxiety and depression Take 1 capsule by mouth once daily. 30 capsule 3 08/19/2015 12/14/2024 Discontinued Comment on above: Take 1 capsule by mo [facility] once daily. hydrOXYzine pamoate 50 mg [...] on above: Take 1 capsule by mo [facility] once daily. lidocaine hydrochloride 20 mg/ml [...] Comment on above: Take 1 tablet by [facility] once daily. melatonin 10 mg / vitamin [...] Department Summary on 06-15-2025 Emergency Department Summary [facility] Medical Records Department [address] [place] [address] Emergency Department Summary 06/15/25 MR#: [id number] Acct: [id number] Name: GILBERTO JOHNSON Rep #: [id number] : 1985 39 From: Chidi Hermosillo DO [...] it with soap and water and hand practice advisor. He was worried about scarring which is [...] intact Psych: Cooperative, appropriate mood and affect [facility] Medical History Acute sinusitis, unspecified [...] it with soap and water and hand practice advisor. He is up-to-date on tetanus. Dog is [...] he s (more content not included)... [facility] Office Visit (WOU[facility]) -------- GILBERTO JOHNSON ([id number]) 1985 M Date Time Provider Department 04/27/25 [...] RELIEF) 50 mcg/actuation nasal spray Use 1 [place] in each nostril twice daily. - loratadine [...] (more content not included)... Normal [facility] Brain/Head without Contrasto n 04-05-2025 Brain/Head without Contrast [facility] Imaging Services [address] [place] [address] Brain/Head without Contrast MR#: [id number] Acct: [id number] Name: GILBERTO JOHNSON Rep #: [id number] : 1985 M 39 From: Nabeel Foster MD PCP: Care Physician,No Primary Status: REG ER Study: Brain/Head without Contrast Date of Exam: 12/26 Exam# [id number] Ordering Dr: Noe Hermosillo DO PROCEDURE: BRAIN/HEAD [...] IMPRESSION: No acute intracranial findings Reading Location: [place] [address] CC: Dr. Chidi Hermosillo DO; No Primary Care Physician Ent Consultant: Signed Normal [facility] Emergency Department Summary on 04-05-2025 Emergency Department Summary [facility] Medical Records Department [address] [place] [address] Emergency Department Summary 04/05/25 MR#: [id number] Acct: [id number] Name: GILBERTO JOHNSON Rep #: [id number] : 1985 39 From: Chidi Hermosillo DO [...] 15 Psych: Cooperative, appropriate mood and affect [facility] Medical History Acute sinusitis, unspecified [...] Differential navneet (more content not included)... Normal [facility] Emergency Department Summary on 03-19-2025 Emergency Department Summary [facility] Medical Records Department [address] [place] [address] Emergency Department Summary 03/19/25 MR#: [id number] Acct: [id number] Name: GILBERTO JOHNSON Rep #: [id number] : 1985 39 From: Marco Antonio Cintron [...] symptoms: Yes Recent Illness/Hospitaliz ation: No [facility] Medical History Acute sinusitis, unspecified [...] 91 Respirat (more content not included)... Normal [facility] CNOVon 12-14-2024 [facility] Office Visit (UCWSTR) -------- GILBERTO JOHNSON ([id number]) 1985 M Date Time Provider Department 12/14/24 6:45 PM ALEX LANDERS [facility] During your visit today, we recorded the following information about you: Temperature Pulse Respiration Blood pressure 97.9 degrees 101/minute 16/minute 122/74 Weight 70.5 kg Alex Landers MD 12/14/2024 7:[address] [facility] Subjective Gilberto Johnson is a 39 [...] RELIEF) 50 mcg/actuation nasal spray Use 1 [place] in each nostril twice daily. - loratadine [...] (more content not included)... Normal [facility] Emergency Department Summary on 12-06-2024 Emergency Department Summary [facility] Medical Records Department [address] [place] [address] Emergency Department Summary 12/06/24 MR#: [id number] Acct: [id number] Name: GILBERTO JOHNSON Rep #: [id number] : 1985 39 From: Marco Antonio Cintron [...] Benign exam. (more content not included)... Normal [facility] Emergency Department Summary on 10-13-2024 Emergency Department Summary [facility] Medical Records Department [address] [place] [address] Emergency Department Summary 10/13/24 MR#: [id number] Acct: [id number] Name: GILBERTO JOHNSON Rep #: [id number] : 1985 39 From: Antwan Jaimes PCP: [...] he stopped taking his cetirizine for allergies. [facility] Medical History Acute sinusitis, unspecified [...] stable condition. (more content not included)... Normal [facility] Chest PA and Lateralon 09-19 Chest PA and Lateral [facility] Imaging Services [address] [place], [place] [id number] Chest PA and Lateral MR#: [id number] Acct: [id number] Name: GILBERTO JOHNSON Rep #: [id number] : 1985 M 39 From: Derrek Shepard MD PCP: Care Physician,No Primary Status: REG ER Study: Chest PA and Lateral Date of Exam: 09/19/24 Exam# [id number] Ordering Dr: Michel Elena MD [id number] EXAM: XR CHEST, 2 VIEWS CLINICAL [...] Michel Elena MD; No Primary Care Physician Ent Consultant: Signed [facility] Emergency Department Summary on 09-19-2024 Emergency Department Summary [facility] Medical Records Department [address] [place] [address] Emergency Department Summary 09/19/24 MR#: [id number] Acct: [id number] Name: GILBERTO JOHNSON Rep #: [id number] : 1985 39 From: Michel Elena MD [...] toxic. Genera (more content not included)... Normal [facility] Acute Abdomen Inc Cheston Acute Abdomen Inc Chest [facility] Imaging Services [address] [place], [place] [id number] Acute [facility]domen [employer] Chest MR#: [id number] Acct: [id number] Name: GILBERTO JOHNSON Rep #: [id number] : 1985 M 39 From: Robert Rhoades PCP: Care Physician,No Primary Status: REG ER Study: Acute Abdomen Inc Chest Date of Exam: 08/20/24 Exam# [id number] Ordering Dr: Alan Begum MD [id number] STUDY: X-RAY - ACUTE ABDOMINAL SERIES [...] Alan Begum MD; No Primary Care Physician Ent Consultant: Signed Normal [facility] Emergency Department Summary on 08-20-2024 Emergency Department Summary [facility] Medical Records Department [address] [place] [address] Emergency Department Summary 08/20/24 MR#: [id number] Acct: [id number] Name: GILBERTO JOHNSON Rep #: [id number] : 1985 39 From: Alan Begum MD [...] is more stool present in his colon. [facility] Medical History Acute sinusitis, unspecified [...] negative n (more content not included)... Normal [facility] Urinalysis, Completeon 08-20 BACTERIA 1+ /hpf Normal None Seen [facility] Comment on above: Order Comment: DAWOOD CTOR TO SPECIFY Performed By: #### L 400.0001 #### [facility] [address] [place], [place], [address] RBC 0-5 SEEN Normal 0-5 [facility] Comment on above: Order Comment: DAWOOD CTOR TO SPECIFY Performed By: #### L 400.0001 #### [facility] [address] [place], [address] EPI,SQUAMOUS 0-5 SEEN Normal 0-5 [facility] Comment on above: Order Comment: DAWOOD CTOR TO SPECIFY Performed By: #### L 400.0001 #### [facility] [address] [place], [address] Mucus Ql (Urine sed) 0 SEEN Normal [facility] Comment on above: Order Comment: DAWOOD CTOR TO SPECIFY Performed By: #### L 400.0001 #### [facility] [address] [place], [address] WBC 0 SEEN Normal 0-5 [facility] Comment on above: Order Comment: COLLE CTOR TO SPECIFY Performed By: #### L 400.0001 #### [facility] [address] [place], [address] Urine Cultureon 07-05-2024 [facility] Culture exhibits no growth. Normal [facility] Comment on above: Performed By: #### M 100.2200 #### [facility] [address] [place], [address] CBC W/Diff, Automatedon Absolute Neut Normal 2.0-7.7 [facility] Comment on above: Performed By: #### L 500.4050, L100.0100 #### [facility] [address] [place], [address] HCT Normal 40-54 [facility] Comment on above: Performed By: #### L 500.4050, L100.0100 #### [facility] [address] [place], [address] HGB Normal 13.0-16.5 [facility] Comment on above: Performed By: #### L 500.4050, L100.0100 #### [facility] [address] [place], [address] MCH Normal 27.0-32.0 [facility] Comment on above: Performed By: #### L 500.4050, L100.0100 #### [facility] [address] [place], [address] MCHC Normal 32-36 [facility] Comment on above: Performed By: #### L 500.4050, L100.0100 #### [facility] [address] [place], [address] MCV Normal 80-94 [facility] Comment on above: Performed By: #### L 500.4050, L100.0100 #### [facility] [address] [place], [address] NEUT% Normal 47-70 [facility] Comment on above: Performed By: #### L 500.4050, L100.0100 #### [facility] [address] [place], [address] PLT Normal 150-450 [facility] Comment on above: Performed By: #### L 500.4050, L100.0100 #### [facility] [address] [place], [address] RBC Normal 4.6-6.2 [facility] Comment on above: Performed By: #### L 500.4050, L100.0100 #### [facility] [address] [place], [address] RDW CV Normal 11.6-14.6 [facility] Comment on above: Performed By: #### L 500.4050, L100.0100 #### [facility] [address] [place], [address] RDW SD Normal 35.1-43.9 [facility] Comment on above: Performed By: #### L 500.4050, L100.0100 #### [facility] [address] [place], [address] WBC Normal 4.4-11.0 [facility] Comment on above: Performed By: #### L 500.4050, L100.0100 #### [facility] [address] [place], [address] Comprehensive Metabolic Prof zoë 07-04-2024 ALB Normal 3.2-5.0 [facility] Comment on above: Result Comment: GREGORY ENT DISCHARGED-NO SPECIMEN REC'D Performed By: #### L 500.4050, L100.0100 #### [facility] [address] [place], [address] ALK P Normal 45-117 [facility] Comment on above: Result Comment: GREGORY ENT DISCHARGED-NO SPECIMEN REC'D Performed By: #### L 500.4050, L100.0100 #### [facility] [address] [place], [address] ALT Normal 16-61 [facility] Comment on above: Result Comment: GREGORY ENT DISCHARGED-NO SPECIMEN REC'D Performed By: #### L 500.4050, L100.0100 #### [facility] [address] [place], [address] AST Normal 15-37 [facility] Comment on above: Result Comment: GREGORY ENT DISCHARGED-NO SPECIMEN REC'D Performed By: #### L 500.4050, L100.0100 #### [facility] [address] [place], [address] BUN Normal 7-18 [facility] Comment on above: Result Comment: GREGORY ENT DISCHARGED-NO SPECIMEN REC'D Performed By: #### L 500.4050, L100.0100 #### [facility] [address] [place], [address] BUN/CRE Normal 10-20 [facility] Comment on above: Result Comment: GREGORY ENT DISCHARGED-NO SPECIMEN REC'D Performed By: #### L 500.4050, L100.0100 #### [facility] [address] [place], [address] CA,Total Normal 8.5-10.1 [facility] Comment on above: Result Comment: GREGORY ENT DISCHARGED-NO SPECIMEN REC'D Performed By: #### L 500.4050, L100.0100 #### [facility] [address] [place], [address] CL Normal 98-107 [facility] Comment on above: Result Comment: GREGORY ENT DISCHARGED-NO SPECIMEN REC'D Performed By: #### L 500.4050, L100.0100 #### [facility] [address] [place], [address] CO2 Normal 21.0-32.0 [facility] Comment on above: Result Comment: GREGORY ENT DISCHARGED-NO SPECIMEN REC'D Performed By: #### L 500.4050, L100.0100 #### [facility] [address] [place], [address] CREAT,SERUM Normal 0.70-1.30 [facility] Comment on above: Result Comment: GREGORY ENT DISCHARGED-NO SPECIMEN REC'D Performed By: #### L 500.4050, L100.0100 #### [facility] [address] [place], [address] EST GFR Normal >60 [facility] Comment on above: Result Comment: GREGORY ENT DISCHARGED-NO SPECIMEN REC'D Performed By: #### L 500.4050, L100.0100 #### [facility] [address] [place], [address] EST GFR - AA Normal >60 [facility] Comment on above: Result Comment: GREGORY ENT DISCHARGED-NO SPECIMEN REC'D Performed By: #### L 500.4050, L100.0100 #### [facility] [address] [place], [address] GAP Normal 5-15 [facility] Comment on above: Result Comment: GREGORY ENT DISCHARGED-NO SPECIMEN REC'D Performed By: #### L 500.4050, L100.0100 #### [facility] [address] [place], [address] GLU Normal 74-106 [facility] Comment on above: Result Comment: GREGORY ENT DISCHARGED-NO SPECIMEN REC'D Performed By: #### L 500.4050, L100.0100 #### [facility] [address] [place], [address] Potassium Normal 3.5-5.1 [facility] Comment on above: Result Comment: GREGORY ENT DISCHARGED-NO SPECIMEN REC'D Performed By: #### L 500.4050, L100.0100 #### [facility] [address] [place], [address] T BILI Normal 0.20-1.00 [facility] Comment on above: Result Comment: GREGORY ENT DISCHARGED-NO SPECIMEN REC'D Performed By: #### L 500.4050, L100.0100 #### [facility] [address] [place], [address] T PROT Normal 6.4-8.2 [facility] Comment on above: Result Comment: GREGORY ENT DISCHARGED-NO SPECIMEN REC'D Performed By: #### L 500.4050, L100.0100 #### [facility] [address] [place], [address] Comprehensive Metabolic Profil Normal 136-145 [facility] Comment on above: Result Comment: GREGORY ENT DISCHARGED-NO SPECIMEN REC'D Performed By: #### L 500.4050, L100.0100 #### [facility] [address] [place], [address] Emergency Department Summary on 07-04-2024 Emergency Department Summary [facility] Medical Records Department [address] [place] [address] Emergency Department Summary 07/04/24 MR#: [id number] Acct: [id number] Name: GILBERTO JOHNSON Rep #: [id number] : 1985 38 From: Nolan Brady DO [...] some subjective chills but denies any fevers. [facility] Medical History Acute sinusitis, unspecified [...] viral illne (more content not included)... Normal [facility] Urinalysis, Completeon 07-04 BACTERIA RARE Normal None Seen [facility] Comment on above: Order Comment: DAWOOD CTOR TO SPECIFY Performed By: #### L 400.0001 #### [facility] [address] [place], [address] WBC >100 SEEN Normal 0-5 [facility] Comment on above: Order Comment: DAWOOD CTOR TO SPECIFY Performed By: #### L 400.0001 #### [facility] [address] [place], [address] EPI,SQUAMOUS 0 SEEN Normal 0-5 [facility] Comment on above: Order Comment: DAWOOD CTOR TO SPECIFY Performed By: #### L 400.0001 #### [facility] [address] [place], [address] Mucus Ql (Urine sed) 0 SEEN Normal [facility] Comment on above: Order Comment: DAWOOD CTOR TO SPECIFY Performed By: #### L 400.0001 #### [facility] [address] [place], [address] RBC 0 SEEN Normal 0-5 [facility] Comment on above: Order Comment: DAWOOD CTOR TO SPECIFY Performed By: #### L 400.0001 #### [facility] [address] [place], [address] Absolute lymphocyte countOrd ered By: Varun Early on 12-25-2023 Lymphocytes Auto (Unsp spec) [#/Vol] 1.00 10*3/uL 0.83-4.51 [facility] Automated lymphocyte count a s percentage of total leukocytesOrdered By: Varun Early on 12-25-2023 Lymphocytes/100 WBC Auto (Unsp spec) 5.8 % 19-41 [facility] Basophil percentageOrdered B y: Remus Sharath on 12-25-2023 Basophils/100 WBC (Bld) 0.4 % 0-1 [facility] Bilirubin [Mass/Vol] 1.10 mg/dL 0.20-1.00 [facility] Comment on above: For patients on eltr ombopag therapy, use of Dimension [place] TBIL is not recommended. Chloride [Moles/Vol] 105 mmol/L 98-107 [facility] Eosinophils/100 WBC (Bld) 0.5 % 0-5 [facility] Glucose [Mass/Vol] 91 mg/dL 74-106 [facility] Hemoglobin (Bld) [Mass/Vol] 17.9 g/dL 13.0-16. 5 [facility] Monocytes/100 WBC (Bld) 7.1 % 0-10 [facility] Neutrophils (Bld) [#/Vol] 14.8 10*3/uL 2.0-7.7 [facility] Neutrophils/100 WBC (Bld) 85.7 % 47-70 [facility] Potassium [Moles/Vol] 3.2 mmol/L 3.5-5.1 [facility] Protein [Mass/Vol] 8.4 g/dL 6.4-8.2 [facility] Sodium [Moles/Vol] 142 mmol/L 136-145 [facility] WBC (Bld) [#/Vol] 17.2 10*3/uL 4.4-11.0 [facility] Determination of erythrocyte mean corpuscular volume (MCV)Ordered By: Varun Early on 12-25-2023 MCV (RBC) [Entitic vol] 91.4 fL 80-94 [facility] Erythrocyte distribution wid th ratioOrdered By: Varun Early on 12-25-2023 Erythrocyte distribution width (RBC) [Ratio] 11.9 % 11.6-14.6 [facility] Erythrocyte distribution wid th standard deviationOrdered By: Varun Early on 12-25-2023 Erythrocyte distribution width (RBC) [Entitic vol] 39.5 fL 35.1-43.9 [facility] Hematocrit Auto (Bld) [Volum e fraction]Ordered By: Varun Early on 12-25-2023 Hematocrit (Bld) [Volume fraction] 51.2 % 40-54 [facility] Immature granulocytes/100 WB C Auto (Bld)Ordered By: Varun Early on 12-25-2023 Immature granulocytes/100 WBC (Bld) 0.500 % 0.0-0.9 [facility] Comment on above: IG% - Immature Granu locytes (promyelocytes, myelocytes and metamyelocytes) > 1% indicates that a LEFT SHIFT is Present. Laboratory - Chemistry and C hemistry - challengeOrdered By: Varun Early on 12-25-2023 Albumin/Globulin [Mass ratio] 1.2 {ratio} 0.9-2.4 [facility] ALP [Catalytic activity/Vol] 69 U/L 45-117 [facility] ALT [Catalytic activity/Vol] 23 U/L 16-61 [facility] CO2 [Moles/Vol] 32.0 mmol/L 21.0-32.0 [facility] Globulin (S) [Mass/Vol] 3.9 g/dL 2.2-4.2 [facility] Lipase [Catalytic activity/Vol] 42 U/L 13-75 [facility] Comment on above: Please note:LIPASE r evised reference range effective 23. New Lipase methodology. Expected to produce lower values than the previous assay method. NEW Reference Range: 13 - 75 U/L Urea nitrogen/Creatinine [Mass ratio] 15.9 mg/mg 10-20 [facility] Laboratory - Hematology and Cell countsOrdered By: Varun Early on 12-25-2023 MCH (RBC) [Entitic mass] 32.0 pg 27.0-32.0 [facility] MCHC (RBC) [Mass/Vol] 35.0 g/dL 32-36 [facility] Nucleated RBC/100 WBC (Bld) [Ratio] 0 % 0-5 [facility] Platelet mean volume (Bld) [Entitic vol] 10.4 fL 6.2-12.0 [facility] [facility] Platelets (Bld) [#/Vol] 201 10*3/uL 150-450 [facility] No Panel InformationOrdered By: Varun Early on 12-25-2023 Estimated Creatinine Clearance Calc 97.58 ml/min [facility] Estimated GFR (MDRD) Amer 116 mL/min >60 [facility] Comment on above: GFR Calc Estimated GFR (MDRD) Non-Af Amer 96 mL/min >60 [facility] Comment on above: Non- GFR Calc RBC Auto (Bld) [#/Vol]Ordere d By: Varun Early on 12-25-2023 RBC (Bld) [#/Vol] 5.60 10*6/uL 4.6-6.2 [facility] Serum or plasma calcium rosalia urement (mass/volume)Ordered By: Varun Early on 12-25-2023 Calcium [Mass/Vol] 9.2 mg/dL 8.5-10.1 [facility] Serum or plasma creatinine m easurement (mass/volume)Ordered By: Varun Early on 12-25-2023 Creatinine [Mass/Vol] 0.94 mg/dL 0.70-1.30 [facility] Comment on above: The validity of the calculated GFR & GFRAA in patients over 70 years has not been determined. Clinical correlation is essential. Serum or plasma urea nitroge n measurement (mass/volume)Ordered By: Varun Early on 12-25-2023 Urea nitrogen [Mass/Vol] 15 mg/dL 7-18 [facility] Thin prep Papanicolaou smear with manual screeningOrdered By: [facility] on 12-25-2023 Thin prep Papanicolaou smear with manual screening 4.5 g/dL 3.2-5.0 [facility] Thin prep Papanicolaou smear with manual screening 21 U/L 15-37 [facility] Thin prep Papanicolaou smear with manual screening 5 5-15 [facility] Absolute lymphocyte countOrd ered By: Dr. Brady on 01-02-2023 Lymphocytes Auto (Unsp spec) [#/Vol] 1.44 10*3/uL 0.83-4.51 [facility] Basophil percentageOrdered B y: Dr. Brady on 01-02-2023 Basophils/100 WBC (Bld) 0.3 % 0-1 [facility] Chloride [Moles/Vol] 108 mmol/L 98-107 [facility] Eosinophils/100 WBC (Bld) 1.0 % 0-5 [facility] Glucose [Mass/Vol] 89 mg/dL 74-106 [facility] Neutrophils (Bld) [#/Vol] 6.5 10*3/uL 2.0-7.7 [facility] Neutrophils/100 WBC (Bld) 71.9 % 47-70 [facility] Potassium [Moles/Vol] 3.2 mmol/L 3.5-5.1 [facility] Sodium [Moles/Vol] 142 mmol/L 136-145 [facility] WBC (Bld) [#/Vol] 9.0 10*3/uL 4.4-11.0 [facility] Blood erythrocytes count (nu mber/volume)Ordered By: Dr. Brady on 01-02-2023 RBC (Bld) [#/Vol] 4.31 10*6/uL 4.6-6.2 [facility] Blood hemoglobin measurement (mass/volume)Ordered By: Dr. Brady on 01-02-2023 Hemoglobin (Bld) [Mass/Vol] 14.0 g/dL 13.0-16. 5 [facility] Blood lymphocytes/100 leukoc ytesOrdered By: Dr. Brady on 01-02-2023 Lymphocytes/100 WBC (Bld) 16.0 % 19-41 [facility] Blood monocytes/100 leukocyt esOrdered By: Dr. Brady on 01-02-2023 Monocytes/100 WBC (Bld) 10.5 % 0-10 [facility] Blood platelet mean volumeOr dered By: Dr. Brady on 01-02-2023 Platelet mean volume (Bld) [Entitic vol] 9.8 fL 6.2-12.0 [facility] Determination of erythrocyte mean corpuscular volume (MCV)Ordered By: Dr. Brady on 01-02-2023 MCV (RBC) [Entitic vol] 91.9 fL 80-94 [facility] Hematocrit Auto (Bld) [Volum e fraction]Ordered By: Dr. Brady on 01-02-2023 Hematocrit (Bld) [Volume fraction] 39.6 % 40-54 [facility] Laboratory - Chemistry and C hemistry - challengeOrdered By: Dr. Brady on 01-02-2023 CO2 [Moles/Vol] 30.0 mmol/L 21.0-32.0 [facility] Urea nitrogen/Creatinine [Mass ratio] 6.0 mg/mg 10-20 [facility] Laboratory - Hematology and Cell countsOrdered By: Dr. Brady on 01-02-2023 Erythrocyte distribution width (RBC) [Entitic vol] 40.3 fL 35.1-43.9 [facility] Erythrocyte distribution width (RBC) [Ratio] 11.9 % 11.6-14.6 [facility] Immature granulocytes/100 WBC (Bld) 0.300 % 0.0-0.9 [facility] Comment on above: IG% - Immature Granu locytes (promyelocytes, myelocytes and metamyelocytes) > 1% indicates that a LEFT SHIFT is Present. MCH (RBC) [Entitic mass] 32.5 pg 27.0-32.0 [facility] Nucleated RBC/100 WBC (Bld) [Ratio] 0 % 0-5 [facility] Auto (RBC) [Mass/Vol]Or dered By: Dr. Brady on 01-02-2023 MCHC (RBC) [Mass/Vol] 35.4 g/dL 32-36 [facility] No Panel InformationOrdered By: Dr. Brady on 01-02-2023 Estimated Creatinine Clearance Calc 93.27 ml/min [facility] Estimated GFR (MDRD) Amer 109 mL/min >60 [facility] Comment on above: GFR Calc Estimated GFR (MDRD) Non-Af Amer 90 mL/min >60 [facility] Comment on above: Non- GFR Calc Platelets bldOrdered By: Dr. Brady on 01-02-2023 Platelets (Bld) [#/Vol] 147 10*3/uL 150-450 [facility] Serum or plasma calcium rosalia urement (mass/volume)Ordered By: Dr. Brady on 01-02-2023 Calcium [Mass/Vol] 8.8 mg/dL 8.5-10.1 [facility] Serum or plasma creatinine m easurement (mass/volume)Ordered By: Dr. Brady on 01-02-2023 Creatinine [Mass/Vol] 1.00 mg/dL 0.70-1.30 [facility] Comment on above: The validity of the calculated GFR & GFRAA in patients over 70 years has not been determined. Clinical correlation is essential. Serum or plasma urea nitroge n measurement (mass/volume)Ordered By: Dr. Brady on 01-02-2023 Urea nitrogen [Mass/Vol] 6 mg/dL 7-18 [facility] Thin prep Papanicolaou smear with manual screeningOrdered By: Dr. Brady on 01-02-2023 Thin prep Papanicolaou smear with manual screening 4 5-15 [facility] Throat Streptococcus pyogene s antigen detection by immunofluorescenceOrdered By: Dr. Begum on 10-11-2022 S. pyogenes Ag IF Ql (Throat) [facility] STREPAon 10-03-2022 Group A Strep PCR Negative Normal Negative [facility] ([place]) Comment on above: Performed By: #### S TREPA #### Devora [address] [address] [facility] Strep PCR Int Normal Aul [facility] ([place]) Comment on above: Result Comment: Nega tive [...] Performed By: #### S PRINCESS #### Devora [address] [address] LABORATORYOrdered By: Modesto Tam on 10-02-2022 S. [...] 09-11-2022 S. pyogenes Ag IF Ql (Throat) [facility] Absolute lymphocyte countOrd ered By: Dr. Pena on 09-03-2022 Lymphocytes Auto (Unsp spec) [#/Vol] 0.50 10*3/uL 0.83-4.51 [facility] Basophil percentageOrdered B y: Dr. Pena on 09-03-2022 Basophils/100 WBC (Bld) 0.3 % 0-1 [facility] Bilirubin [Mass/Vol] 1.60 mg/dL 0.20-1.00 [facility] Comment on above: For patients on eltr ombopag therapy, use of Dimension [place] TBIL is not recommended. Chloride [Moles/Vol] 109 mmol/L 98-107 [facility] Eosinophils/100 WBC (Bld) 0.0 % 0-5 [facility] Glucose [Mass/Vol] 100 mg/dL 74-106 [facility] Comment on above: Fasting Glucose resu lt from 100 to 125 mg/dL suggests IMPAIRED HOMEOSTASIS per A.D.A. criteria. Neutrophils (Bld) [#/Vol] 10.0 10*3/uL 2.0-7.7 [facility] Neutrophils/100 WBC (Bld) 89.3 % 47-70 [facility] Potassium [Moles/Vol] 3.7 mmol/L 3.5-5.1 [facility] Protein [Mass/Vol] 7.4 g/dL 6.4-8.2 [facility] Sodium [Moles/Vol] 144 mmol/L 136-145 [facility] WBC (Bld) [#/Vol] 11.2 10*3/uL 4.4-11.0 [facility] Blood erythrocytes count (nu mber/volume)Ordered By: Dr. Pena on 09-03-2022 RBC (Bld) [#/Vol] 5.24 10*6/uL 4.6-6.2 [facility] Blood hemoglobin measurement (mass/volume)Ordered By: Dr. Pena on 09-03-2022 Hemoglobin (Bld) [Mass/Vol] 16.8 g/dL 13.0-16. 5 [facility] Blood lymphocytes/100 leukoc ytesOrdered By: Dr. Pena on 09-03-2022 Lymphocytes/100 WBC (Bld) 4.5 % 19-41 [facility] Blood manual differential co mment interpretation (narrative result)Ordered By: Dr. Pena on 09-03-2022 Manual differential comment Vincent (Bld) [Interp] SEE COMMENT [facility] Comment on above: LYMPHOPENIA NOTED Blood monocytes/100 leukocyt esOrdered By: Dr. Pena on 09-03-2022 Monocytes/100 WBC (Bld) 5.5 % 0-10 [facility] Blood platelet adequacy dete ction by light microscopyOrdered By: Dr. Pena on 09-03-2022 Platelets LM Ql (Bld) ADEQUATE ADEQ [facility] Blood platelet mean volumeOr dered By: Dr. Pena on 09-03-2022 Platelet mean volume (Bld) [Entitic vol] 10.5 fL 6.2-12.0 [facility] Determination of erythrocyte mean corpuscular volume (MCV)Ordered By: Dr. Pena on 09-03-2022 MCV (RBC) [Entitic vol] 90.5 fL 80-94 [facility] Hematocrit Auto (Bld) [Volum e fraction]Ordered By: Dr. Pena on 09-03-2022 Hematocrit (Bld) [Volume fraction] 47.4 % 40-54 [facility] Laboratory - Chemistry and C hemistry - challengeOrdered By: Dr. Pena on 09-03-2022 ALP [Catalytic activity/Vol] 67 U/L 45-117 [facility] ALT [Catalytic activity/Vol] 24 U/L 16-61 [facility] CO2 [Moles/Vol] 30.0 mmol/L 21.0-32.0 [facility] Globulin (S) [Mass/Vol] 3.2 g/dL 2.2-4.2 [facility] Lipase [Catalytic activity/Vol] 50 U/L 73-393 [facility] Urea nitrogen/Creatinine [Mass ratio] 9.8 mg/mg 10-20 [facility] Laboratory - Hematology and Cell countsOrdered By: Dr. Pena on 09-03-2022 Anisocytosis Ql (Bld) RARE [facility] Erythrocyte distribution width (RBC) [Entitic vol] 40.6 fL 35.1-43.9 [facility] Erythrocyte distribution width (RBC) [Ratio] 12.5 % 11.6-14.6 [facility] Immature granulocytes/100 WBC (Bld) 0.400 % 0.0-0.9 [facility] Comment on above: IG% - Immature Granu locytes (promyelocytes, myelocytes and metamyelocytes) > 1% indicates that a LEFT SHIFT is Present. MCH (RBC) [Entitic mass] 32.1 pg 27.0-32.0 [facility] Nucleated RBC/100 WBC (Bld) [Ratio] 0 % 0-5 [facility] MCHC Auto (RBC) [Mass/Vol]Or dered By: Dr. Pena on 09-03-2022 MCHC (RBC) [Mass/Vol] 35.4 g/dL 32-36 [facility] Macrocytes detectionOrdered By: Dr. Pena on 09-03-2022 Macrocytes Ql (Bld) RARE [facility] No Panel InformationOrdered By: Dr. Pena on 09-03-2022 Estimated Creatinine Clearance Calc 108.90 ml/min [facility] Estimated GFR (MDRD) Amer 138 mL/min >60 [facility] Comment on above: GFR Calc Estimated GFR (MDRD) Non-Af Amer 114 mL/min >60 [facility] Comment on above: Non- GFR Calc Ethyl Alcohol Level 5.0 mg/dL [facility] Comment on above: The serum:whole bloo d ethanol ratio is approximately 1.14and varies slightly with hematocrit. Medical Alcohol reference interval and critical value innon-tolerant individuals; 50 - 100 Impairment 100 Intoxication 100 - 250 Severe Poisoning 250 - 400 Deep/possible fatal coma Influenza Types A,B Direct FA (JESS) [facility] Platelets bldOrdered By: Dr. Pena on 09-03-2022 Platelets (Bld) [#/Vol] 151 10*3/uL 150-450 [facility] RBC morphologyOrdered By: Dr Dick Pena on 09-03-2022 RBC morphology finding Nom (Bld) N CHROM NORMAL NORM C&C [facility] Serum or plasma albumin rosalia urement (mass/volume)Ordered By: Dr. Pena on 09-03-2022 Albumin [Mass/Vol] 4.2 g/dL 3.2-5.0 [facility] Serum or plasma albumin/glob ulin mass ratioOrdered By: Dr. Pena on 09-03-2022 Albumin/Globulin [Mass ratio] 1.3 {ratio} 0.9-2.4 [facility] Serum or plasma calcium rosalia urement (mass/volume)Ordered By: Dr. Pena on 09-03-2022 Calcium [Mass/Vol] 8.8 mg/dL 8.5-10.1 [facility] Serum or plasma creatinine m easurement (mass/volume)Ordered By: Dr. Pena on 09-03-2022 Creatinine [Mass/Vol] 0.82 mg/dL 0.70-1.30 [facility] Comment on above: The validity of the calculated GFR & GFRAA in patients over 70 years has not been determined. Clinical correlation is essential. Serum or plasma urea nitroge n measurement (mass/volume)Ordered By: Dr. Pena on 09-03-2022 Urea nitrogen [Mass/Vol] 8 mg/dL 7-18 [facility] Thin prep Papanicolaou smear with manual screeningOrdered By: Dr. Pena on 09-03-2022 Thin prep Papanicolaou smear with manual screening 16 U/L 15-37 [facility] Thin prep Papanicolaou smear with manual screening 5 5-15 [facility] Basophil percentageOrdered B y: Dr. Richards on 08-20-2022 Basophil percentage 0 SEEN /hpf 0-5 [facility] Bilirubin Test strip Ql (U)O rdered By: Dr. Richards on 08-20-2022 Bilirubin Ql (U) Negative Negative [facility] Ketones Test strip Ql (U)Ord ered By: Dr. Richards on 08-20-2022 Ketones Ql (U) Negative Negative [facility] Mucus LM Ql (Urine sed)Order ed By: Dr. Richards on 08-20-2022 Mucus Ql (Urine sed) 0 SEEN /hpf [facility] Nitrite Test strip Ql (U)Ord ered By: Dr. Richards on 08-20-2022 Nitrite Ql (U) Negative Negative [facility] Protein Test strip Ql (U)Ord ered By: Dr. Richards on 08-20-2022 Protein Ql (U) Negative Negative [facility] Squamous epithelial cells de tection in urine sediment by light microscopyOrdered By: Dr. Richards on 08-20-2022 Epithelial cells.squamous LM Ql (Urine sed) 0 SEEN /hpf 0-5 [facility] Urine blood detectionOrdered By: Dr. Richards on 08-20-2022 RBC Ql (U) Negative Negative [facility] RBC Ql (U) 0 SEEN /hpf 0-5 [facility] Urine clarityOrdered By: Dr. Richards on 08-20-2022 Clarity (U) Clear Clear [facility] Urine color determinationOrd ered By: Dr. Richards on 08-20-2022 Color (U) Straw Yellow [facility] Urine glucose detectionOrder ed By: Dr. Richards on 08-20-2022 Glucose Ql (U) Normal mg/dl Normal [facility] Urine leukocyte esterase det ection by dipstickOrdered By: Dr. Richards on 08-20-2022 Leukocyte esterase Test strip Ql (U) Negative Negative [facility] Urine pHOrdered By: Dr. Kapil cha on 08-20-2022 pH (U) 7.0 [pH] 5.0 - 8.0 [facility] Urine sediment bacteria coun t by microscopy (number/high power field)Ordered By: Dr. Richards on 08-20-2022 Bacteria LM.HPF (Urine sed) [#/Area] 0 /[HPF] None Seen [facility] Urine specific gravity measu rementOrdered By: Dr. Richards on 08-20-2022 Specific gravity (U) [Rel density] 1.010 1.002-1.030 [facility] Urobilinogen Auto test strip Ql (U)Ordered By: Dr. Richards on 08-20-2022 Urobilinogen Ql (U) Normal mg/dl Normal [facility] Absolute lymphocyte counton 07-30-2022 Lymphocytes Auto (Unsp spec) [#/Vol] 0.88 10*3/uL 0.83-4.51 [facility] Work Phone: Basophil percentageon 2021 Basophils/100 WBC (Bld) 0.1 % 0-1 [facility] Work Phone: Bilirubin [Mass/Vol] 1.70 mg/dL 0.20-1.00 [facility] Work Phone: Comment on above: For patients on eltr ombopag therapy, use of Dimension [place] TBIL is not recommended. Chloride [Moles/Vol] 106 mmol/L 98-107 [facility] Work Phone: Eosinophils/100 WBC (Bld) 0.1 % 0-5 [facility] Work Phone: Glucose [Mass/Vol] 109 mg/dL 74-106 [facility] Work Phone: Comment on above: Fasting Glucose resu lt from 100 to 125 mg/dL suggests IMPAIRED HOMEOSTASIS per A.D.A. criteria. Neutrophils (Bld) [#/Vol] 5.1 10*3/uL 2.0-7.7 [facility] Work Phone: Neutrophils/100 WBC (Bld) 75.1 % 47-70 [facility] Work Phone: Potassium [Moles/Vol] 3.8 mmol/L 3.5-5.1 [facility] Work Phone: Protein [Mass/Vol] 7.4 g/dL 6.4-8.2 [facility] Work Phone: Sodium [Moles/Vol] 137 mmol/L 136-145 [facility] Work Phone: WBC (Bld) [#/Vol] 6.8 10*3/uL 4.4-11.0 [facility] Work Phone: Blood erythrocytes count (nu mber/volume)on 07-30-2022 RBC (Bld) [#/Vol] 4.96 10*6/uL 4.6-6.2 [facility] Work Phone: Blood hemoglobin measurement (mass/volume)on 07-30-2022 Hemoglobin (Bld) [Mass/Vol] 16.2 g/dL 13.0-16. 5 [facility] Work Phone: Blood lymphocytes/100 leukoc yteson 07-30-2022 Lymphocytes/100 WBC (Bld) 12.9 % 19-41 [facility] Work Phone: Blood monocytes/100 leukocyt eson 07-30-2022 Monocytes/100 WBC (Bld) 11.4 % 0-10 [facility] Work Phone: Blood platelet mean volumeon 07-30-2022 Platelet mean volume (Bld) [Entitic vol] 10.2 fL 6.2-12.0 [facility] Work Phone: Determination of erythrocyte mean corpuscular volume (MCV)on 07-30-2022 MCV (RBC) [Entitic vol] 87.7 fL 80-94 [facility] Work Phone: Hematocrit Auto (Bld) [Volum e fraction]on 07-30-2022 Hematocrit (Bld) [Volume fraction] 43.5 % 40-54 [facility] Work Phone: Laboratory - Chemistry and C hemistry - challengeon 07-30-2022 ALP [Catalytic activity/Vol] 66 U/L 45-117 [facility] Work Phone: ALT [Catalytic activity/Vol] 22 U/L 16-61 [facility] Work Phone: CO2 [Moles/Vol] 26.0 mmol/L 21.0-32.0 [facility] Work Phone: Globulin (S) [Mass/Vol] 3.3 g/dL 2.2-4.2 [facility] Work Phone: Lipase [Catalytic activity/Vol] 54 U/L 73-393 [facility] Work Phone: Urea nitrogen/Creatinine [Mass ratio] 9.2 mg/mg 10-20 [facility] Work Phone: Laboratory - Hematology and Cell countson 07-30-2022 Erythrocyte distribution width (RBC) [Entitic vol] 37.7 fL 35.1-43.9 [facility] Work Phone: Erythrocyte distribution width (RBC) [Ratio] 11.8 % 11.6-14.6 [facility] Work Phone: Immature granulocytes/100 WBC (Bld) 0.400 % 0.0-0.9 [facility] Work Phone: [phone] Comment on above: IG% - Immature Granu locytes (promyelocytes, myelocytes and metamyelocytes) > 1% indicates that a LEFT SHIFT is Present. MCH (RBC) [Entitic mass] 32.7 pg 27.0-32.0 [facility] Work Phone: [phone] Nucleated RBC/100 WBC (Bld) [Ratio] 0 % 0-5 [facility] Work Phone: [phone] MCHC Auto (RBC) [Mass/Vol]on 07-30-2022 MCHC (RBC) [Mass/Vol] 37.2 g/dL 32-36 [facility] Work Phone: [phone] No Panel Informationon 07-30 Estimated Creatinine Clearance Calc 82.55 ml/min [facility] Work Phone: [phone] Estimated GFR (MDRD) Amer 99 mL/min >60 [facility] Work Phone: [phone] Comment on above: GFR Calc Estimated GFR (MDRD) Non-Af Amer 82 mL/min >60 [facility] Work Phone: [phone] Comment on above: Non- GFR Calc Platelets bldon 07-30-2022 Platelets (Bld) [#/Vol] 166 10*3/uL 150-450 [facility] Work Phone: [phone] Serum or plasma albumin rosalia urement (mass/volume)on 07-30-2022 Albumin [Mass/Vol] 4.1 g/dL 3.2-5.0 [facility] Work Phone: [phone] Serum or plasma albumin/glob ulin mass ratioon 07-30-2022 Albumin/Globulin [Mass ratio] 1.2 {ratio} 0.9-2.4 [facility] Work Phone: [phone] Serum or plasma calcium rosalia urement (mass/volume)on 07-30-2022 Calcium [Mass/Vol] 9.1 mg/dL 8.5-10.1 [facility] Work Phone: Serum or plasma creatinine m easurement (mass/volume)on 07-30-2022 Creatinine [Mass/Vol] 1.09 mg/dL 0.70-1.30 [facility] Work Phone: Comment on above: The validity of the calculated GFR & GFRAA in patients over 70 years has not been determined. Clinical correlation is essential. Serum or plasma urea nitroge n measurement (mass/volume)on 07-30-2022 Urea nitrogen [Mass/Vol] 10 mg/dL 7-18 [facility] Work Phone: Thin prep Papanicolaou smear with manual screeningon 07-30-2022 Thin prep Papanicolaou smear with manual screening 24 U/L 15-37 [facility] Work Phone: [phone] Thin prep Papanicolaou smear with manual screening 5 5-15 [facility] Work Phone: Absolute lymphocyte counton 07-29-2022 Lymphocytes Auto (Unsp spec) [#/Vol] 0.96 10*3/uL 0.83-4.51 [facility] Work Phone: Basophil percentageon 2021 Basophils/100 WBC (Bld) 0.3 % 0-1 [facility] Work Phone: Bilirubin [Mass/Vol] 1.60 mg/dL 0.20-1.00 [facility] Work Phone: Comment on above: For patients on eltr ombopag therapy, use of Dimension [place] TBIL is not recommended. Chloride [Moles/Vol] 111 mmol/L 98-107 [facility] Work Phone: Eosinophils/100 WBC (Bld) 0.2 % 0-5 [facility] Work Phone: Glucose [Mass/Vol] 92 mg/dL 74-106 [facility] Work Phone: Neutrophils (Bld) [#/Vol] 10.1 10*3/uL 2.0-7.7 [facility] Work Phone: Neutrophils/100 WBC (Bld) 83.7 % 47-70 [facility] Work Phone: Potassium [Moles/Vol] 3.8 mmol/L 3.5-5.1 [facility] Work Phone: Protein [Mass/Vol] 7.7 g/dL 6.4-8.2 [facility] Work Phone: Sodium [Moles/Vol] 142 mmol/L 136-145 [facility] Work Phone: WBC (Bld) [#/Vol] 12.1 10*3/uL 4.4-11.0 [facility] Work Phone: Blood erythrocytes count (nu mber/volume)on 07-29-2022 RBC (Bld) [#/Vol] 5.05 10*6/uL 4.6-6.2 [facility] Work Phone: Blood hemoglobin measurement (mass/volume)on 07-29-2022 Hemoglobin (Bld) [Mass/Vol] 16.6 g/dL 13.0-16. 5 [facility] Work Phone: Blood lymphocytes/100 leukoc yteson 07-29-2022 Lymphocytes/100 WBC (Bld) 7.9 % 19-41 [facility] Work Phone: Blood monocytes/100 leukocyt eson 07-29-2022 Monocytes/100 WBC (Bld) 7.4 % 0-10 [facility] Work Phone: Blood platelet mean volumeon 07-29-2022 Platelet mean volume (Bld) [Entitic vol] 10.0 fL 6.2-12.0 [facility] Work Phone: Determination of erythrocyte mean corpuscular volume (MCV)on 07-29-2022 MCV (RBC) [Entitic vol] 88.1 fL 80-94 [facility] Work Phone: Hematocrit Auto (Bld) [Volum e fraction]on 07-29-2022 Hematocrit (Bld) [Volume fraction] 44.5 % 40-54 [facility] Work Phone: [phone] Laboratory - Chemistry and C hemistry - challengeon 07-29-2022 ALP [Catalytic activity/Vol] 70 U/L 45-117 [facility] Work Phone: [phone] ALT [Catalytic activity/Vol] 26 U/L 16-61 [facility] Work Phone: [phone] CO2 [Moles/Vol] 24.0 mmol/L 21.0-32.0 [facility] Work Phone: [phone] Globulin (S) [Mass/Vol] 3.3 g/dL 2.2-4.2 [facility] Work Phone: [phone] Lipase [Catalytic activity/Vol] 73 U/L 73-393 [facility] Work Phone: [phone] Urea nitrogen/Creatinine [Mass ratio] 6.3 mg/mg 10-20 [facility] Work Phone: [phone] Laboratory - Hematology and Cell countson 07-29-2022 Erythrocyte distribution width (RBC) [Entitic vol] 37.4 fL 35.1-43.9 [facility] Work Phone: [phone] Erythrocyte distribution width (RBC) [Ratio] 11.8 % 11.6-14.6 [facility] Work Phone: [phone] Immature granulocytes/100 WBC (Bld) 0.500 % 0.0-0.9 [facility] Work Phone: [phone] Comment on above: IG% - Immature Granu locytes (promyelocytes, myelocytes and metamyelocytes) > 1% indicates that a LEFT SHIFT is Present. MCH (RBC) [Entitic mass] 32.9 pg 27.0-32.0 [facility] Work Phone: [phone] Nucleated RBC/100 WBC (Bld) [Ratio] 0 % 0-5 [facility] Work Phone: [phone] MCHC Auto (RBC) [Mass/Vol]on 07-29-2022 MCHC (RBC) [Mass/Vol] 37.3 g/dL 32-36 [facility] Work Phone: No Panel Informationon 07-29 Estimated Creatinine Clearance Calc 91.48 ml/min [facility] Work Phone: Estimated GFR (MDRD) Amer 117 mL/min >60 [facility] Work Phone: Comment on above: GFR Calc Estimated GFR (MDRD) Non-Af Amer 96 mL/min >60 [facility] Work Phone: Comment on above: Non- GFR Calc Platelets bldon 07-29-2022 Platelets (Bld) [#/Vol] 176 10*3/uL 150-450 [facility] Work Phone: Serum or plasma albumin rosalia urement (mass/volume)on 07-29-2022 Albumin [Mass/Vol] 4.4 g/dL 3.2-5.0 [facility] Work Phone: Serum or plasma albumin/glob ulin mass ratioon 07-29-2022 Albumin/Globulin [Mass ratio] 1.3 {ratio} 0.9-2.4 [facility] Work Phone: Serum or plasma calcium rosalia urement (mass/volume)on 07-29-2022 Calcium [Mass/Vol] 9.1 mg/dL 8.5-10.1 [facility] Work Phone: Serum or plasma creatinine m easurement (mass/volume)on 07-29-2022 Creatinine [Mass/Vol] 0.94 mg/dL 0.70-1.30 [facility] Work Phone: Comment on above: The validity of the calculated GFR & GFRAA in patients over 70 years has not been determined. Clinical correlation is essential. Serum or plasma urea nitroge n measurement (mass/volume)on 07-29-2022 Urea nitrogen [Mass/Vol] 6 mg/dL 7-18 [facility] Work Phone: Thin prep Papanicolaou smear with manual screeningon 07-29-2022 Thin prep Papanicolaou smear with manual screening 23 U/L 15-37 [facility] Work Phone: Thin prep Papanicolaou smear with manual screening 7 5-15 [facility] Work Phone: CULTURE URINEon 05-04-2022 CULTURE URINE CULTURE URINE --> Status: F No growth (<1,000 CFU/ml). Normal [facility] Comment on above: Performed By: #### C /UR ####[facility] [place] [address] Chlamydia and GC PCR Panelon 05-03-2022 Chlamydia and GC PCR Panel Chlamydia trachomatis PCR --> Status: F NOT Detected Chlamydia trachomatis Nucleic Acid NOT Detected by DNA Amplification using the [employer] System. Culture is the only recommended test [...] as suspected child abuse or molestation. Normal [facility] Comment on above: Performed By: #### C TNGP ####[facility] [place] [address] Complete Urinalysison 2021 Bacteria Few (1-5) Abnormal Negative [facility] Comment on above: Result Comment: . Performed By: #### C UA2 #### [facility] [address] [place] [address] RBC, Urine 11 - 25 Abnormal 0-2 [facility] Comment on above: Result Comment: . Performed By: #### C UA2 #### [facility] [address] [place] [address] Squamous Epithelial 3 - 5 Normal 3-5 [facility] Comment on above: Result Comment: . Performed By: #### C UA2 #### [facility] [address] [place] [address] VOLUME, URINE 12 ml Normal [facility] Comment on above: Result Comment: . Performed By: #### C UA2 #### [facility] [address] [place] [address] WBC, Urine 51 - 100 Abnormal 0-5 [facility] Comment on above: Result Comment: . Performed By: #### C UA2 #### [facility] [address] [place] [address] Appearance (U) Turbid Abnormal [facility] Comment on above: Result Comment: . Performed By: #### C UA2 #### [facility] [address] [place] [address] Bilirubin,Urine Negative Normal Negative [facility] Comment on above: Result Comment: . Performed By: #### C UA2 #### [facility] [address] [place] [address] Color (U) LIGHT BROWN Abnormal Lt. Yellow [facility] Comment on above: Result Comment: . Performed By: #### C UA2 #### [facility] [address] [place] [address] Glucose Ql (U) Normal Normal Normal (<70) [facility] Comment on above: Result Comment: . Performed By: #### C UA2 #### [facility] [address] [place] [address] Ketone,Urine Negative Normal Negative [facility] Comment on above: Result Comment: . Performed By: #### C UA2 #### [facility] [address] [place] [address] Leukocytes,Urine 500 Analy/uL Abnormal Negative [facility] Comment on above: Result Comment: . Performed By: #### C UA2 #### [facility] [address] [place] [address] Nitrites,Urine Negative Normal Negative [facility] Comment on above: Result Comment: . Performed By: #### C UA2 #### [facility] [address] [place] [address] Occult Blood,Urine > 1.0 Abnormal Negative [facility] Comment on above: Result Comment: . Performed By: #### C UA2 #### [facility] [address] [place] [address] pH,Urine 6.0 Normal 5.0-8.0 [facility] Comment on above: Result Comment: . Performed By: #### C UA2 #### [facility] [address] [place] [address] Protein (U) [Mass/Vol] 70 mg/dL Abnormal Negative [facility] Comment on above: Result Comment: . Performed By: #### C UA2 #### [facility] [address] [place] [address] Specific [place],Urine < 1.005 Abnormal 1.005 - 1.030 [facility] Comment on above: Result Comment: . Performed By: #### C UA2 #### [facility] [address] [place] [address] Urobilinogen,Urine Normal Normal Normal (0-1) [facility] Comment on above: Result Comment: . Performed By: #### C UA2 #### [facility] [address] [place] [address] Urinalysison 05-02-2022 Appearance (U) Turbid Abnormal Clear [...] /[HPF] [facility] Comment on above: . Specific [place], Urine Abnormal S [facility] Comment on above: . Squam Epithel, UA 3-5 3 - 5 /[HPF] [facility] Comment on above: . Urobilinogen, Urine Normal Normal (0-1) mg/dL [facility] Comment on above: . Volume 12 ml [facility] Comment on above: . WBC, UA /[HPF] Abnormal 0 - 5 /[HPF] [facility] Comment on above: . [facility], [address] , [place], [place] [id number] [place] [address] LAB [facility] CULTURE URINEon 03-31-2022 CULTURE URINE CULTURE URINE --> Status: F Insignificant growth based on current clinical guidelines. Normal [facility] Comment on above: Performed By: #### C /UR ####[facility] [address] [place] [address] CBC with Auto Differentialon 03-28-2022 Absolute Baso [...] [Mass/Vol] 15.4 g/dL 13.0 - 18.0 g/dL [facility] Interpretation and review of laboratory results [...] [#/Vol] 6.9 10*3/uL 3.6 - 10.7 10*3/uL [facility] Test Performed by [facility], [address] [place] [address]. [address] LAB [facility] CT Abdomen and Pelvis W cont rast Kristen 03-28-2022 Patient Name: GILBERTO JOHNSON Computed Tomography ACCESSION EXAM DATE/TIME PROCEDURE ORDERING PROVIDER [id number] 03/28/2022 15:[address] Abdomen/Pelvis w/ IV MD ULICES, PEYTON Beltran Contrast (IV Onl CPT code 60035 Q9967 Reason For Exam (CT Abdomen/Pelvis w/ [...] JEFFREY Transcribed Date and Time: 03/28/2022 3:43 [facility] RAD Liam Mcdonough MD - 03/28/2022 Patient Name: GILBERTO JOHNSON Computed Tomography ACCESSION EXAM DATE/TIME PROCEDURE ORDERING PROVIDER [id number] 03/28/2022 15:[address] Abdomen/Pelvis w/ IV MD ELENA DOUGALAS R. Contrast (IV Onl CPT code 33999 Q9967 Reason For Exam (CT Abdomen/Pelvis w/ [...] Tomography ACCESSION EXAM DATE/TIME PROCEDURE ORDERING PROVIDER [id number] 03/28/2022 15:[address] Abdomen/Pelvis w/ IV MD LEENA DOUGALAS R. Contrast (IV Onl CPT code 28495 Q9967 Reason For Exam (CT Abdomen/Pelvis w/ [...] Transcribed Date and Time: 03/28/2022 3:43 Normal [facility] Comp Metabolic Panelon 03-28 ALP [Catalytic activity/Vol] 55 U/L Normal 38-126 [facility] Comment on above: Performed By: #### H EMDF, LIPA4, CMP3 ####[address] [place] [address] ALT [Catalytic activity/Vol] 14 U/L Normal 0-49 [facility] Comment on above: Result Comment: The ALT test is performed by an updated assay method. Please note that the reference intervals have been changed and are now sex specific. Performed By: #### H EMDF, LIPA4, CMP3 ####[place] [place] [address] Calcium [Mass/Vol] 9.4 mg/dL Normal 8.4-10.4 [facility] Comment on above: Performed By: #### H EMDF, LIPA4, CMP3 ####[address] [place] [place] [address] Glucose [Mass/Vol] 87 mg/dL Normal 70-100 [facility] Comment on above: Performed By: #### H EMDF, LIPA4, CMP3 ####[address] [place] [address] Protein [Mass/Vol] 7.6 g/dL Normal 6.3-8.2 [facility] Comment on above: Performed By: #### H EMDSohail, LIPA4, CMP3 ####[facility] [place] [address] Urea nitrogen [Mass/Vol] 7 mg/dL Normal 7-17 [facility] Comment on above: Performed By: #### H EMDSohail, LIPA4, CMP3 ####[facility] [place] [address] Anion gap [Moles/Vol] 7 mmol/L Normal 3-13 [facility] Comment on above: Performed By: #### H GISEL, LIPA4, CMP3 ####[facility] [place] [address] AST [Catalytic activity/Vol] 35 U/L Normal 15-46 [facility] Comment on above: Performed By: #### H GISEL, LIPA4, CMP3 ####[facility] [place] [address] Bilirubin [Mass/Vol] 1.5 mg/dL High 0.2-1.3 [facility] Comment on above: Performed By: #### H EMDSohail, LIPA4, CMP3 ####[facility] [place] [address] CO2 [Moles/Vol] 32 mmol/L High 22-30 [facility] Comment on above: Performed By: #### H EMDF, LIPA4, CMP3 ####[facility] [place] [address] Creatinine [Mass/Vol] 0.84 mg/dL Normal 0.52-1.25 [facility] Comment on above: Performed By: #### H EMDF, LIPA4, CMP3 ####[facility] [place] [address] eGFR OTHER > 90.0 Normal >60 [facility] Comment on above: Result Comment: KDIG [...] Performed By: #### H TAMEKA BATRESA4, CMP3 ####[facility] [place] [address] GFR/1.73 sq M.predicted among blacks MDRD (S/P/Bld) [Vol rate/Area] mL/min/{1.73_m2} Normal >60 [facility] Comment on above: Performed By: #### H EMDF, LIPA4, CMP3 ####[facility] [place] [address] Potassium [Moles/Vol] 3.5 mmol/L Normal 3.5-5.1 [facility] Comment on above: Performed By: #### H EMDF, LIPA4, CMP3 ####[facility] [place] [address] Sodium [Moles/Vol] 140 mmol/L Normal 135-145 [facility] Comment on above: Performed By: #### H EMDF, LIPA4, CMP3 ####[facility] [place] [address] Albumin [Mass/Vol] 4.5 g/dL Normal 3.5-5.0 [facility] Comment on above: Performed By: #### H EMDF, LIPA4, CMP3 ####[facility] [place] [address] Chloride [Moles/Vol] 101 mmol/L Normal 98-107 [facility] Comment on above: Performed By: #### H EMDF, LIPA4, CMP3 ####[facility] [place] [address] Complete Urinalysison 2021 Appearance (U) Clear Normal [facility] Comment on above: Result Comment: . Performed By: #### C UA2 #### [facility] [address] [place] [address] Bilirubin,Urine Negative Normal Negative [facility] Comment on above: Result Comment: . Performed By: #### C UA2 #### [facility] [address] [place] [address] Color (U) COLORLESS Normal Lt. Yellow [facility] Comment on above: Result Comment: . Performed By: #### C UA2 #### [facility] [address] [place] [address] Glucose Ql (U) Normal Normal Normal (<70) [facility] Comment on above: Result Comment: . Performed By: #### C UA2 #### [facility] [address] [place] [address] Ketone,Urine Negative Normal Negative [facility] Comment on above: Result Comment: . Performed By: #### C UA2 #### [facility] [address] [place] [address] Leukocytes,Urine Negative Normal Negative [facility] Comment on above: Result Comment: . Performed By: #### C UA2 #### [facility] [address] [place] [address] Nitrites,Urine Negative Normal Negative [facility] Comment on above: Result Comment: . Performed By: #### C UA2 #### [facility] [address] [place] [address] Occult Blood,Urine Negative Normal Negative [facility] Comment on above: Result Comment: . Performed By: #### C UA2 #### [facility] [address] [place] [address] pH,Urine 7.5 Normal 5.0-8.0 [facility] Comment on above: Result Comment: . Performed By: #### C UA2 #### [facility] [address] [place] [address] Specific [place],Urine < 1.005 Abnormal 1.005 - 1.030 [facility] Comment on above: Result Comment: . Performed By: #### C UA2 #### [facility] [address] [place] [address] Total Protein,Urine Negative Normal Negative [facility] Comment on above: Result Comment: . Performed By: #### C UA2 #### [facility] [address] [place] [address] Urobilinogen,Urine Normal Normal Normal (0-1) [facility] Comment on above: Result Comment: . Performed By: #### C UA2 #### [facility] [address] [place] [address] Comprehensive Metabolic Pane [facility] 03-28-2022 Albumin [Mass/Vol] 4.5 g/dL 3.5 - 5.0 g/dL [facility] ALP (Bld) [Catalytic activity/Vol] 55 U/L 38 - 126 U/L [facility] ALT [Catalytic activity/Vol] 14 U/L 0 - 49 U/L [facility] Comment on above: The ALT test [...] - 1.25 mg/dL [facility] EGFR IF NonAfrican Chadian >90.0 >60 mL/m in [facility] Comment on [...] fraction] 7.6 g/dL 6.3 - 8.2 g/dL [facility] GFR/1.73 sq M.predicted among blacks MDRD (S/P/Bld) [Vol rate/Area] mL/min/{1.73_m2} >60 mL/min [facility] Glucose [Mass/Vol] 87 mg/dL 70 - 100 mg/dL [facility] Interpretation and review of laboratory results Abnormal [facility] Potassium [Moles/Vol] 3.5 mmol/L 3.5 - 5.1 mmol/L [facility] Sodium [Moles/Vol] 140 mmol/L 135 - 145 mmol/L [facility] Urea nitrogen (BldV) [Mass/Vol] 7 mg/dL 7 - 17 mg/dL [facility] Hemogram w/ Autodiffon 03-28 Abs Baso Cnt 0.0 10*3/uL Normal 0.0-0.2 [facility] Comment on above: Performed By: #### H EMDF, LIPA4, CMP3 #### [facility] [address] [place] [address] Abs Neutrophile Cnt 5.1 10*3/uL Normal 1.8-7.0 [facility] Comment on above: Performed By: #### H EMDF, LIPA4, CMP3 #### [facility] [address] [place] [address] Basophils/100 WBC (Bld) 0.3 % Normal 0.0-2.0 [facility] Comment on above: Performed By: #### H EMDF, LIPA4, CMP3 #### [facility] [address] [place] [address] Eosinophils (Bld) [#/Vol] 0.0 10*3/uL Normal 0.0-0.5 [facility] Comment on above: Performed By: #### H EMDF, LIPA4, CMP3 #### [facility] [address] [place] [address] Eosinophils/100 WBC (Bld) 0.3 % Low 1.0-6.0 [facility] Comment on above: Performed By: #### H EMDF, LIPA4, CMP3 #### [facility] [address] [place] [address] Erythrocyte distribution width (RBC) [Ratio] 11.8 % Normal 11.5-14.5 [facility] Comment on above: Performed By: #### H EMDF, LIPA4, CMP3 #### [facility] [address] [place] [address] Granulocytes/100 WBC (Bld) 73.8 % Normal 40.0-80.0 [facility] Comment on above: Performed By: #### H EMDF, LIPA4, CMP3 #### [facility] [address] [place] [address] Hematocrit (Bld) [Volume fraction] 42.4 % Normal 40.0-52.0 [facility] Comment on above: Performed By: #### H EMDF, LIPA4, CMP3 #### [facility] [address] [place] [address] Hemoglobin (Bld) [Mass/Vol] 15.4 g/dL Normal 13.0-18. 0 [facility] Comment on above: Performed By: #### H EMDF, LIPA4, CMP3 #### [facility] [address] [place] [address] Lymphocytes (Bld) [#/Vol] 1.3 10*3/uL Normal 1.0-4.3 [facility] Comment on above: Performed By: #### H EMDF, LIPA4, CMP3 #### [facility] [address] [place] [address] Lymphocytes/100 WBC (Bld) 18.2 % Low 20.0-40.0 [facility] Comment on above: Performed By: #### H EMDF, LIPA4, CMP3 #### [facility] [address] [place] [address] MCH (RBC) [Entitic mass] 32.5 pg Normal 26.0-34.0 [facility] Comment on above: Performed By: #### H EMDF, LIPA4, CMP3 #### [facility] [address] [place] [address] MCHC 36.3 % High 32.0-36.0 [facility] Comment on above: Performed By: #### H EMDF, LIPA4, CMP3 #### [facility] [address] [place] [address] MCV (RBC) [Entitic vol] 89.5 fL Normal 80.0-98.0 [facility] Comment on above: Performed By: #### H EMDF, LIPA4, CMP3 #### [facility] [address] [place] [address] Monocytes (Bld) [#/Vol] 0.5 10*3/uL Normal 0.0-0.8 [facility] Comment on above: Performed By: #### H EMDF, LIPA4, CMP3 #### [facility] [address] [place] [address] Monocytes/100 WBC (Bld) 7.1 % Normal 2.0-10.0 [facility] Comment on above: Performed By: #### H EMDF, LIPA4, CMP3 #### [facility] [address] [place] [address] Platelet mean volume (Bld) [Entitic vol] 10.1 fL Normal 7.4-12.4 [facility] Comment on above: Result Comment: MPV is a calculated measurement using platelet volume ratio. Performed By: #### H EMDF, LIPA4, CMP3 #### [facility] [address] [place] [address] Platelets (Bld) [#/Vol] 165 10*3/uL Normal 140-440 [facility] Comment on above: Performed By: #### H EMDF, LIPA4, CMP3 #### [facility] [address] [place] [address] RBC (Bld) [#/Vol] 4.74 10*6/uL Normal 4.40-5.90 [facility] Comment on above: Performed By: #### H EMDF, LIPA4, CMP3 #### [facility] [address] [place] [address] WBC (Bld) [#/Vol] 6.9 10*3/uL Normal 3.6-10.7 [facility] Comment on above: Performed By: #### H EMDF, LIPA4, CMP3 #### [facility] [address] [place] [address] Lipaseon 03-28-2022 Lipase [Catalytic activity/Vol] 44 U/L Normal 23-300 [facility] Comment on above: Performed By: #### H EMDF, LIPA4, CMP3 ####[facility] [place] [address] Lipase [Catalytic activity/Vol] 44 U/L 23 - 300 U/L [facility] No Panel Informationon 03-28 Test Performed by [facility], [address] , [place], [place] [address] [facility] Urinalysison 03-28-2022 Appearance (U) Clear Clear NA [facility] Comment on above: . Bilirubin Urine Negative Negative mg/dL [facility] Comment on above: . Color (U) COLORLESS Lt. Yellow NA [facility] Comment on above: . Glucose, Ur Normal Normal (<70) mg/dL [facility] Comment on above: . Interpretation and review of laboratory results Abnormal [facility] Ketones Ql (U) Negative Negative mg/dL [facility] Comment on above: . LEUKOCYTES, UA Negative Negative Analy/uL [facility] Comment on above: . Nitrite, Urine Negative Negative NA [facility] Comment on above: . Occult Blood,Urine Negative Negative mg/dL [facility] Comment on above: . pH (U) 7.5 [pH] [facility] Comment on above: . Specific [place], Urine <1.005 Abnormal S [facility] Comment on above: . Total Protein, Urine Negative Negativ e mg/dL [facility] Comment on above: . Urobilinogen, Urine Normal Normal (0-1) mg/dL [facility] Comment on above: . Test Performed by [facility], [address] , [place], [place] [id number] [place] [address] LAB [facility] UA DIP, URINE (POC)on 2021 BILIRUBIN UA (POCT) Negative Negative [facility] CLARITY UA (POCT) [facility] COLOR UA ([facility]CT) Yellow [facility] GLUCOSE UA (POCT) Negative Negative mg/dL [facility] HEMOGLOBIN/BLOOD UA (POCT) Trace-lysed Abnormal Negative [facility] KETONE UA (POCT) Negative Negative mg/dL [facility] LEUKOCYTES UA (POCT) Negative Negative [facility] NITRITE UA (POCT) Negative Negative [facility] PH UA (POCT) 7.5 4.5 - 8.0 [facility] Protein Ql (U) Negative Negative mg/dL [facility] SPECIFIC GRAVITY UA (POCT) 1.015 1 .005 - 1.030 [facility] UROBILINOGEN UA (POCT) 0.2 E.U./dL Martha l E.U./dL [facility] Chlamydia and GC PCR Panelon 03-24-2022 [...] as suspected child abuse or molestation. Normal [facility] Comment on above: Performed By: #### C UA2 #### [facility] [place] [address] #### CTNGP #### [address] [address] [place], [place] Complete Urinalysison 2021 Appearance (U) Clear Normal [facility] Comment on above: Result Comment: . Performed By: #### C UA2 #### [facility] [address] [place] [address] #### CTNGP #### [address] [address] [place], [place] Bilirubin,Urine Negative Normal Negative [facility] [place] [facility] Comment on above: Result Comment: . Performed By: #### C UA2 #### [address] [address] #### CTNGP #### [address] Color (U) COLORLESS Normal Lt. Yellow [facility] Comment on above: Result Comment: . Performed By: #### C UA2 #### [address] [place] [address] #### CTNGP #### [address] Glucose Ql (U) Normal Normal Normal (<70) [facility] Comment on above: Result Comment: . Performed By: #### C UA2 #### [address] [place] [address] #### CTNGP #### [address] Ketone,Urine Negative Normal Negative [facility] Comment on above: Result Comment: . Performed By: #### C UA2 #### [facility] [address] [place] [address] #### CTNGP #### [address] Leukocytes,Urine Negative Normal Negative [facility] Comment on above: Result Comment: . Performed By: #### C UA2 #### [facility] [address] [place] [address] #### CTNGP #### [address] [place] [address] Nitrites,Urine Negative Normal Negative [facility] Comment on above: Result Comment: . Performed By: #### C UA2 #### [address] [place] [address] #### CTNGP #### [address] [place] [address] Occult Blood,Urine Negative Normal Negative [facility] Comment on above: Result Comment: . Performed By: #### C UA2 #### [address] [place] [address] #### CTNGP #### [address] [place] [address] pH,Urine 7.5 Normal 5.0-8.0 [facility] Comment on above: Result Comment: . Performed By: #### C UA2 #### [address] [place] [address] #### CTNGP #### [address] [address] [place] [address] Specific [place],Urine < 1.005 Abnormal 1.005 - 1.030 [facility] Comment on above: Result Comment: . Performed By: #### C UA2 #### [address] [place] [address] #### CTNGP #### [address] [address] [place] [address] Total Protein,Urine Negative Normal Negative [facility] Comment on above: Result Comment: . Performed By: #### C UA2 #### [address] [place] [address] #### CTNGP #### [address] [address] [place] [address] Urobilinogen,Urine Normal Normal Normal (0-1) [facility] Comment on above: Result Comment: . Performed By: #### C UA2 #### [address] [place] [address] #### CTNGP #### [facility] [address] [place] [address] UrinalysisOrdered By: Fausto Caruso on 03-23-2022 Appearance (U) Clear Clear NA [employer] Work Phone: Comment on above: . Bilirubin Urine Negative Negative mg/dL [employer] Work Phone: Comment on above: . Color (U) COLORLESS Lt. Yellow NA [employer] Work Phone: Comment on above: . Glucose, Ur Normal Normal (<70) mg/dL [employer] Work Phone: Comment on above: . Interpretation and review of laboratory results Abnormal [employer] Work Phone: Ketones Ql (U) Negative Negative mg/dL [employer] Work Phone: Comment on above: . LEUKOCYTES, UA Negative Negative Analy/uL [facility] Work Phone: Comment on above: . Nitrite, Urine Negative Negative NA [employer] Work Phone: Comment on above: . Occult Blood,Urine Negative Negative mg/dL [employer] Work Phone: Comment on above: . pH (U) 7.5 [pH] [employer] Work Phone: Comment on above: . Specific [place], Urine <1.005 Abnormal S [facility] Work Phone: Comment on above: . Total Protein, Urine Negative Negativ e mg/dL [employer] Work Phone: Comment on above: . Urobilinogen, Urine Normal Normal (0-1) mg/dL [employer] Work Phone: Comment on above: . [employer] Work Phone: Urinalysison 03-23-2022 Test Performed by [facility], [address] , [place], [place] [id number] [place] [address] LAB Chlamydia and GC PCR Panelon 06-15-2022 Chlamydia and GC PCR Panel Chlamydia trachomatis PCR --> Status: F NOT Detected Chlamydia trachomatis Nucleic Acid NOT Detected by DNA Amplification using the [employer] System. Culture is the only recommended test in medical-legal cases such as suspected child abuse or molestation. Chlamydia trachomatis Nucleic Acid NOT Detected by DNA Amplification using the [employer] System. Culture is the only recommended test in medical-legal cases such as suspected child abuse or molestation. Neisseria gonorrhoeae PCR --> Status: F NOT Detected Neisseria gonorrhoeae Nucleic Acid NOT Detected by DNA Amplification using the [employer] System. Culture is the only recommended test in medical-legal cases such as suspected child abuse or molestation. Neisseria gonorrhoeae Nucleic Acid NOT Detected by DNA Amplification using the [employer] System. Culture is the only recommended test in medical-legal cases such as suspected child abuse or molestation. Normal [facility] Comment on above: Performed By: #### C TNGP ####[facility] [place] [address] Complete Urinalysison 2021 Appearance (U) Clear Normal Clear [facility] Comment on above: Result Comment: . Performed By: #### C UA2 #### [facility] [address] [place] [address] Bilirubin,Urine Negative Normal Negative [facility] [place] [facility] Comment on above: Result Comment: . Performed By: #### C UA2 #### [facility] [address] [place] [address] Color (U) LIGHT YELLOW Normal Lt. Yellow [facility] Comment on above: Result Comment: . Performed By: #### C UA2 #### [facility] [address] [place] [address] Glucose Ql (U) Normal Normal Normal (<70) [facility] Comment on above: Result Comment: . Performed By: #### C UA2 #### [facility] [address] [place] [address] Ketone,Urine Negative Normal Negative [facility] Comment on above: Result Comment: . Performed By: #### C UA2 #### [facility] [address] [place] [address] Leukocytes,Urine Negative Normal Negative [facility] Comment on above: Result Comment: . Performed By: #### C UA2 #### [facility] [address] [place] [address] Nitrites,Urine Negative Normal Negative [facility] Comment on above: Result Comment: . Performed By: #### C UA2 #### [facility] [address] [place] [address] Occult Blood,Urine Negative Normal Negative [facility] Comment on above: Result Comment: . Performed By: #### C UA2 #### [facility] [address] [place] [address] pH,Urine 6.0 Normal 5.0-8.0 [facility] Comment on above: Result Comment: . Performed By: #### C UA2 #### [address] [place] [address] Specific [place],Urine 1.009 Normal 1.005 - 1.030 [facility] Comment on above: Result Comment: . Performed By: #### C UA2 #### [address] [place] [address] Total Protein,Urine Negative Normal Negative [facility] Comment on above: Result Comment: . Performed By: #### C UA2 #### [address] [place] [address] Urobilinogen,Urine Normal Normal Normal (0-1) [facility] Comment on above: Result Comment: . Performed By: #### C UA2 #### [address] [place] [address] Urinalysison 03-17-2022 Appearance (U) Clear Clear NA [facility] Comment on above: . Bilirubin Urine [...] above: . Occult Blood,Urine Negative Negative mg/dL [facility] Comment on above: . pH (U) 6.0 [pH] [facility] Comment on above: . Specific [place], Urine 1.009 S [facility] Comment on above: . Total Protein, Urine Negative Negativ e mg/dL [facility] Comment on above: . Urobilinogen, Urine Normal Normal (0-1) mg/dL [facility] Comment on above: . Test Performed by [facility], [address] [place], [place] [address] , [address] LAB [facility] .Urinalysis Microscopic (AO) on 12-19-2021 UA Bacteria Trace Abnormal [facility] ([place]) Comment on above: Performed By: #### U AMICAO, UA #### [address] [place], [place] [address] UA RBC 0-5 Abnormal None Seen [facility] ([place] Comment on above: Performed By: #### U AMICAO, UA #### [address] [place], [place] [address] UA Squam Epithelial None Seen Normal None Seen [facility] ([place]) Comment on above: Performed By: #### U AMICAO, UA #### [address] [place], [place] [address] UA WBC 0-5 Abnormal None Seen [facility] ([place]) Comment on above: Performed By: #### U AMICAO, UA #### [facility] [address] [place], [place] [address] LABORATORYOrdered By: Modesto Tam on 12-19-2021 Appearance [...] SS UAon 12-19-2021 Color (U) Ruchi Normal [facility] ([place]) Comment on above: Performed By: #### U AMICAO, UA #### [address] [address] Glucose (U) [Mass/Vol] 100 mg/dL Abnormal Negative [facility] ([place]) Comment on above: Performed By: #### U AMICAO, UA #### [address] [place], [place] [address] Ketones Ql (U) Trace Abnormal Negative [facility] ([place]) Comment on above: Performed By: #### U AMICAO, UA #### [address] [address] UA Appear Clear Normal Clear [facility] ([place] Comment on above: Performed By: #### U AMICAO, UA #### [address] [place] [address] UA Bili Small Abnormal Negative [facility] ([place]) Comment on above: Performed By: #### U AMICAO, UA #### [facility] [address] [address] UA Blood Trace Abnormal Negative [facility] ([place]) Comment on above: Performed By: #### U AMICAO, UA #### [facility] [address] [address] UA Leuk Est Negative Normal Negative [facility] ([place]) Comment on above: Performed By: #### U AMICAO, UA #### [address] [place] [address] UA Nitrite Positive Abnormal Negative [facility] ([place]) Comment on above: Performed By: #### U AMICAO, UA #### [address] [id number] UA pH 5.0 Normal 5.0 - 8.0 [facility] ([place] Comment on above: Performed By: #### U AMICAO, UA #### [address] [address] UA Protein Trace Normal Negative [facility] ([place] Comment on above: Performed By: #### U AMICAO, UA #### [address] [place] [id number] UA Spec Grav 1.025 Normal 1.015-1.025 [facility] ([place] Comment on above: Performed By: #### U AMICAO, UA #### [address] [address] UA Specimen Type Clean Catch Normal [facility] ([place]) Comment on above: Performed By: #### U AMICAO, UA #### [address] [address] UA Urobilinogen 1.0 E.U./dL Normal 0.2-1.0 [facility] ([place] Comment on above: Performed By: #### U AMICAO, UA #### [address] [place] [address] CR Chest Portableon 12-16-19 22 CR Chest Portable Patient Name: GILBERTO JOHNSON Diagnostic Radiology ACCESSION EXAM DATE/TIME PROCEDURE ORDERING PROVIDER [id number] 12/15/2021 21:42 EDT CR Chest Portable HAYDEN IVAN CPT code 90134 Reason For Exam (CR Chest Portable) fever [...] Transcribed Date and Time: 12/15/2021 9:56 Normal [facility] Comp Metabolic Panelon 12-15 ALP [Catalytic activity/Vol] 63 U/L Normal 38-126 [facility] Comment on above: Performed By: #### C MP3, HEMDF #### [facility] [address] [place] [address] ALT [Catalytic activity/Vol] 15 U/L Normal 0-49 [facility] Comment on above: Result Comment: The ALT test is performed by an updated assay method. Please note that the reference intervals have been changed and are now sex specific. Performed By: #### C MP3, HEMDF #### [facility] [address] [place] [address] AST [Catalytic activity/Vol] 28 U/L Normal 15-46 [facility] Comment on above: Performed By: #### C MP3, HEMDF #### [facility] [address] [place] [address] Calcium [Mass/Vol] 9.6 mg/dL Normal 8.4-10.4 [facility] Comment on above: Performed By: #### C MP3, HEMDF #### [facility] [address] [place] [address] Glucose [Mass/Vol] 104 mg/dL High 70-100 [facility] Comment on above: Performed By: #### C MP3, HEMDF #### [facility] [address] [place] [address] Protein [Mass/Vol] 7.5 g/dL Normal 6.3-8.2 [facility] Comment on above: Performed By: #### C MP3, HEMDF #### [facility] [address] [place] [address] Urea nitrogen [Mass/Vol] 3 mg/dL Low 7-17 [facility] Comment on above: Performed By: #### C OLIVIA3, HEMDF #### [facility] [address] [place] [address] Anion gap [Moles/Vol] 8 mmol/L Normal 3-13 [facility] Comment on above: Performed By: #### C OLIVIA3, HEMDF #### [facility] [address] [address] Bilirubin [Mass/Vol] 0.8 mg/dL Normal 0.2-1.3 [facility] Comment on above: Performed By: #### C OLIVIA3, HEMDF #### [facility] [address] [address] CO2 [Moles/Vol] 27 mmol/L Normal 22-30 [facility] Comment on above: Performed By: #### C OLIVIA3, HEMDF #### [facility] [address] [place] [address] Creatinine [Mass/Vol] 0.83 mg/dL Normal 0.52-1.25 [facility] Comment on above: Performed By: #### C OLIVIA3, HEMDF #### [facility] [address] [place] [address] eGFR OTHER > 90.0 Normal >60 [facility] Comment on above: Result Comment: KDIG [...] Performed By: #### C MP3, HEMDF #### [facility] [address] [place] [address] GFR/1.73 sq M.predicted among blacks MDRD (S/P/Bld) [Vol rate/Area] mL/min/{1.73_m2} Normal >60 [facility] Comment on above: Performed By: #### C MP3, HEMDF #### [facility] [address] [place] [address] Albumin [Mass/Vol] 4.6 g/dL Normal 3.5-5.0 [facility] Comment on above: Performed By: #### C MP3, HEMDF #### [facility] [address] [place] [address] Chloride [Moles/Vol] 104 mmol/L Normal 98-107 [facility] Comment on above: Performed By: #### C MP3, HEMDF #### [facility] [address] [place] [address] Potassium [Moles/Vol] 3.9 mmol/L Normal 3.5-5.1 [facility] Comment on above: Performed By: #### C MP3, HEMDF #### [facility] [address] [address] Sodium [Moles/Vol] 138 mmol/L Normal 135-145 [facility] Comment on above: Performed By: #### C MP3, HEMDF #### [facility] [address] [place] [address] Hemogram w/ Autodiffon 12-15 Abs Baso Cnt 0.0 10*3/uL Normal 0.0-0.2 [facility] Comment on above: Performed By: #### C MP3, HEMDF #### [facility] [address] [place] [address] Abs Neutrophile Cnt 3.3 10*3/uL Normal 1.8-7.0 [facility] Comment on above: Performed By: #### C MP3, HEMDF #### [facility] [address] [place] [address] Basophils/100 WBC (Bld) 0.7 % Normal 0.0-2.0 [facility] Comment on above: Performed By: #### C MP3, HEMDF #### [facility] [address] [place] [address] Eosinophils (Bld) [#/Vol] 0.0 10*3/uL Normal 0.0-0.5 [facility] Comment on above: Performed By: #### C MP3, HEMDF #### [facility] [address] [place] [address] Eosinophils/100 WBC (Bld) 0.3 % Low 1.0-6.0 [facility] Comment on above: Performed By: #### C MP3, HEMDF #### [facility] [address] [place] [address] Erythrocyte distribution width (RBC) [Ratio] 13.3 % Normal 11.5-14.5 [facility] Comment on above: Performed By: #### C MP3, HEMDF #### [facility] [address] [place] [address] Granulocytes/100 WBC (Bld) 62.9 % Normal 40.0-80.0 [facility] Comment on above: Performed By: #### C MP3, HEMDF #### [facility] [address] [place] [address] Hematocrit (Bld) [Volume fraction] 44.3 % Normal 40.0-52.0 [facility] Comment on above: Performed By: #### C MP3, HEMDF #### [facility] [address] [place] [address] Hemoglobin (Bld) [Mass/Vol] 15.6 g/dL Normal 13.0-18. 0 [facility] Comment on above: Performed By: #### C MP3, HEMDF #### [facility] [address] [place] [address] Lymphocytes (Bld) [#/Vol] 1.4 10*3/uL Normal 1.0-4.3 [facility] Comment on above: Performed By: #### C MP3, HEMDF #### [facility] [address] [place] [address] Lymphocytes/100 WBC (Bld) 26.9 % Normal 20.0-40.0 [facility] Comment on above: Performed By: #### C MP3, HEMDF #### [facility] [address] [place] [address] MCH (RBC) [Entitic mass] 31.4 pg Normal 26.0-34.0 [facility] Comment on above: Performed By: #### C MP3, HEMDF #### [facility] [address] [place] [address] MCHC 35.1 % Normal 32.0-36.0 [facility] Comment on above: Performed By: #### C MP3, HEMDF #### [facility] [address] [place] [address] MCV (RBC) [Entitic vol] 89.3 fL Normal 80.0-98.0 [facility] Comment on above: Performed By: #### C MP3, HEMDF #### [facility] [address] [place] [address] Monocytes (Bld) [#/Vol] 0.5 10*3/uL Normal 0.0-0.8 [facility] Comment on above: Performed By: #### C MP3, HEMDF #### [facility] [address] [place] [address] Monocytes/100 WBC (Bld) 9.2 % Normal 2.0-10.0 [facility] Comment on above: Performed By: #### C MP3, HEMDF #### [facility] [address] [place] [address] Platelet mean volume (Bld) [Entitic vol] 7.7 fL Normal 7.4-10.4 [facility] Comment on above: Performed By: #### C MP3, HEMDF #### [facility] [address] [place] [address] Platelets (Bld) [#/Vol] 218 10*3/uL Normal 140-440 [facility] Comment on above: Performed By: #### C MP3, HEMDF #### [facility] [address] [place] [address] RBC (Bld) [#/Vol] 4.96 10*6/uL Normal 4.40-5.90 [facility] Comment on above: Performed By: #### C MP3, HEMDF #### [facility] [address] [place] [address] WBC (Bld) [#/Vol] 5.2 10*3/uL Normal 3.6-10.7 [facility] Comment on above: Performed By: #### C MP3, HEMDF #### [facility] [address] [place] [address] CR Chest Portableon 08-16-20 21 CR Chest Portable Patient Name: GILBERTO JOHNSON Diagnostic Radiology ACCESSION EXAM DATE/TIME PROCEDURE ORDERING PROVIDER [id number] 08/16/2021 18:25 EST CR Chest Portable MD HARJIT, FLORECITA Haji CPT code 92110 Reason For Exam (CR Chest Portable) shortness [...] ALFRED Transcribed Date and Time: 08/16/2021 6:38 [facility] XR CHEST PORTABLEon 08-16-20 Patient Name: GILBERTO JOHNSON Diagnostic Radiology ACCESSION EXAM DATE/TIME PROCEDURE ORDERING PROVIDER [id number] 08/16/2021 18:25 EST CR Chest Portable MD LOMBARDI DAVID C. CPT code 58374 Reason For Exam (CR Chest Portable) shortness [...] ALFRED Transcribed Date and Time: 08/16/2021 6:38 [facility] Benny Olivo DO - 08/16/2021 Patient Name: GILBERTO JOHNSON Diagnostic Radiology ACCESSION EXAM DATE/TIME PROCEDURE ORDERING PROVIDER [id number] 08/16/2021 18:25 EST CR Chest Portable MD LOMBARDI DAVID C. CPT code 97821 Reason For Exam (CR Chest Portable) shortness [...] CHEST PORTABLEOrdered By: Benny Olivo on 08-16-2021 [facility] Note on 04-12-2017 [facility] Note Normal [facility] Patient Summary Documentson 04-10-2017 Patient Summary Documents Normal [facility] Patient Summary Documents Normal [facility] No Panel Information Influenza Types A,B Direct FA (JESS) [facility] Work Phone: Vital Signs Date Time Vital Sign Value Performing Clinician Facility 06-16-2025 00:05-0400 Body temperature 98.1 [degF] No Primary Care Physician [facility] 06-16-2025 00:05-0400 Diastolic blood pressure 98 mm[Hg] No Primary Care Physician [facility] 06-16-2025 00:05-0400 Heart rate 72 /min No Primary Care Physician [facility] 06-16-2025 00:05-0400 Respiratory rate 18 /min No Primary Care Physician [facility] 06-16-2025 00:05-0400 SaO2% (BldA) [Mass fraction] 98 % No Primary Care Physician [facility] 06-16-2025 00:05-0400 Systolic blood pressure 138 mm[Hg] No Primary Care Physician [facility] 06-15-2025 21:35-0400 Body height 172.72 cm No Primary Care Physician [facility] 06-15-2025 21:35-0400 Body mass index (BMI) [Ratio] 23.7 kg/m2 No Primary Care Physician [facility] 06-15-2025 21:35-0400 Body weight 70.85 kg No Primary Care Physician [facility] 04-27-2025 18:31-0400 Body mass index (BMI) [Ratio] 23.46 kg/m2 Emir Clutter PA-C Work Phone: [facility] 04-27-2025 18:31-0400 Body temperature 97.81 [degF] Emir Clutter PA-C Work Phone: [facility] 04-27-2025 18:31-0400 Body weight 70 kg Emir Clutter PA-C Work Phone: [facility] 04-27-2025 18:31-0400 Diastolic blood pressure 81 mm[Hg] Emir Clutter PA-C Work Phone: [facility] 04-27-2025 18:31-0400 Heart rate 83 /min Emir Clutter PA-C Work Phone: [facility] 04-27-2025 18:31-0400 Respiratory rate 18 /min Emir Clutter PA-C Work Phone: [facility] 04-27-2025 18:31-0400 SaO2% (BldA) [Mass fraction] 96 % Emir Clutter PA-C Work Phone: [facility] 04-27-2025 18:31-0400 Systolic blood pressure 141 mm[Hg] Emir Clutter PA-C Work Phone: [facility] 04-05-2025 02:51-0400 Body temperature 98 [degF] No Primary Care Physician [facility] 04-05-2025 02:51-0400 Diastolic blood pressure 60 mm[Hg] No Primary Care Physician [facility] 04-05-2025 02:51-0400 Heart rate 72 /min No Primary Care Physician [facility] 04-05-2025 02:51-0400 Respiratory rate 16 /min No Primary Care Physician [facility] 04-05-2025 02:51-0400 SaO2% (BldA) [Mass fraction] 98 % No Primary Care Physician [facility] 04-05-2025 02:51-0400 Systolic blood pressure 132 mm[Hg] No Primary Care Physician [facility] 04-05-2025 01:14-0400 Body height 172.72 cm No Primary Care Physician [facility] 04-05-2025 01:14-0400 Body mass index (BMI) [Ratio] 23.4 kg/m2 No Primary Care Physician [facility] 04-05-2025 01:14-0400 Body weight 69.9 kg No Primary Care Physician [facility] 03-19-2025 01:41-0400 Body temperature 98 [degF] No Primary Care Physician [facility] 03-19-2025 01:41-0400 Diastolic blood pressure 81 mm[Hg] No Primary Care Physician [facility] 03-19-2025 01:41-0400 Heart rate 71 /min No Primary Care Physician [facility] 03-19-2025 01:41-0400 Respiratory rate 18 /min No Primary Care Physician [facility] 03-19-2025 01:41-0400 SaO2% (BldA) [Mass fraction] 100 % No Primary Care Physician [facility] 03-19-2025 01:41-0400 Systolic blood pressure 134 mm[Hg] No Primary Care Physician [facility] 03-19-2025 00:42-0400 Body height 173 cm No Primary Care Physician [facility] 03-19-2025 00:42-0400 Body mass index (BMI) [Ratio] 23.9 kg/m2 No Primary Care Physician [facility] 03-19-2025 00:42-0400 Body weight 71.6 kg No Primary Care Physician [facility] 12-14-2024 18:41-0400 Body mass index (BMI) [Ratio] 23.63 kg/m2 Alex Landers MD Work Phone: [facility] 12-14-2024 18:41-0400 Body temperature 97.9 [degF] Alex Landers MD Work Phone: [facility] 12-14-2024 18:41-0400 Body weight 70.5 kg Alex Landers MD Work Phone: [facility] 12-14-2024 18:41-0400 Diastolic blood pressure 74 mm[Hg] Alex Landers MD Work Phone: [facility] 12-14-2024 18:41-0400 Heart rate 101 /min Alex Landers MD Work Phone: [facility] 12-14-2024 18:41-0400 Respiratory rate 16 /min Alex Landers MD Work Phone: [facility] 12-14-2024 18:41-0400 SaO2% (BldA) [Mass fraction] 96 % Alex Landers MD Work Phone: [facility] 12-14-2024 18:41-0400 Systolic blood pressure 122 mm[Hg] Alex Landers MD Work Phone: [facility] 12-06-2024 12:34-0500 Body mass index (BMI) [Ratio] 22 kg/m2 No Primary Care Physician [facility] 12-06-2024 12:34-0500 Body temperature 97.6 [degF] No Primary Care Physician [facility] 12-06-2024 12:34-0500 Body weight 65.77 kg No Primary Care Physician [facility] 12-06-2024 12:34-0500 Diastolic blood pressure 95 mm[Hg] No Primary Care Physician [facility] 12-06-2024 12:34-0500 Heart rate 86 /min No Primary Care Physician [facility] 12-06-2024 12:34-0500 Respiratory rate 15 /min No Primary Care Physician [facility] 12-06-2024 12:34-0500 SaO2% (BldA) [Mass fraction] 97 % No Primary Care Physician [facility] 12-06-2024 12:34-0500 Systolic blood pressure 130 mm[Hg] No Primary Care Physician [facility] 12-25-2023 07:31-0400 Body temperature 97.4 [degF] [facility] 12-25-2023 07:31-0400 Diastolic blood pressure 83 mm[Hg] [facility] 12-25-2023 07:31-0400 Heart rate 79 /min [facility] 12-25-2023 07:31-0400 Respiratory rate 16 /min [facility] 12-25-2023 07:31-0400 SaO2% (BldA) [Mass fraction] 99 % [facility] 12-25-2023 07:31-0400 Systolic blood pressure 116 mm[Hg] [facility] 12-25-2023 03:45-0400 Body height 172.72 cm [facility] 12-25-2023 03:45-0400 Body mass index (BMI) [Ratio] 21.2 kg/m2 [facility] 12-25-2023 03:45-0400 Body weight 63.5 kg [facility] 11-19-2023 17:30-0500 Body temperature 97.81 [degF] Krislyn Aberegg PA Work Phone: [facility] 11-19-2023 17:30-0500 Body weight 71.22 kg Krislyn Aberegg PA Work Phone: [facility] 11-19-2023 17:30-0500 Diastolic blood pressure 88 mm[Hg] Krislyn Aberegg PA Work Phone: [facility] 11-19-2023 17:30-0500 Heart rate 111 /min Krislyn Aberegg PA Work Phone: [facility] 11-19-2023 17:30-0500 Respiratory rate 18 /min Krislyn Aberegg PA Work Phone: [facility] 11-19-2023 17:30-0500 SaO2% (BldA) [Mass fraction] 100 % Krislyn Aberegg PA Work Phone: [facility] 11-19-2023 17:30-0500 Systolic blood pressure 132 mm[Hg] Krislyn Aberegg PA Work Phone: [facility] 06-05-2023 18:03-0400 Body height 172.72 cm [facility] 06-05-2023 18:03-0400 Body mass index (BMI) [Ratio] 22.4 kg/m2 [facility] 06-05-2023 18:03-0400 Body temperature 97.1 [degF] [facility] 06-05-2023 18:03-0400 Body weight 66.85 kg [facility] 06-05-2023 18:03-0400 Diastolic blood pressure 115 mm[Hg] [facility] 06-05-2023 18:03-0400 Heart rate 96 /min [facility] 06-05-2023 18:03-0400 Respiratory rate 18 /min [facility] 06-05-2023 18:03-0400 SaO2% (BldA) [Mass fraction] 99 % [facility] 06-05-2023 18:03-0400 Systolic blood pressure 141 mm[Hg] [facility] 02-28-2023 19:52-0400 Body height 172.72 cm [facility] 02-28-2023 19:52-0400 Body mass index (BMI) [Ratio] 21.6 kg/m2 [facility] 02-28-2023 19:52-0400 Body temperature 98 [degF] [facility] 02-28-2023 19:52-0400 Body weight 64.45 kg [facility] 02-28-2023 19:52-0400 Diastolic blood pressure 94 mm[Hg] [facility] 02-28-2023 19:52-0400 Heart rate 92 /min [facility] 02-28-2023 19:52-0400 Respiratory rate 16 /min [facility] 02-28-2023 19:52-0400 SaO2% (BldA) [Mass fraction] 98 % [facility] 02-28-2023 19:52-0400 Systolic blood pressure 128 mm[Hg] [facility] 02-03-2023 06:40-0400 Diastolic blood pressure 77 mm[Hg] [facility] 02-03-2023 06:40-0400 Heart rate 62 /min [facility] 02-03-2023 06:40-0400 Respiratory rate 15 /min [facility] 02-03-2023 06:40-0400 SaO2% (BldA) [Mass fraction] 97 % [facility] 02-03-2023 06:40-0400 Systolic blood pressure 108 mm[Hg] [facility] 02-03-2023 06:11-0400 Body height 172.72 cm [facility] 02-03-2023 06:11-0400 Body temperature 99.4 [degF] [facility] 01-13-2023 06:11-0400 Body height 172.72 cm [facility] 01-13-2023 06:11-0400 Body mass index (BMI) [Ratio] 21.9 kg/m2 [facility] 01-13-2023 06:11-0400 Body temperature 98.5 [degF] [facility] 01-13-2023 06:11-0400 Body weight 65.5 kg [facility] 01-13-2023 06:11-0400 Diastolic blood pressure 74 mm[Hg] [facility] 01-13-2023 06:11-0400 Heart rate 74 /min [facility] 01-13-2023 06:11-0400 Respiratory rate 15 /min [facility] 01-13-2023 06:11-0400 SaO2% (BldA) [Mass fraction] 98 % [facility] 01-13-2023 06:11-0400 Systolic blood pressure 132 mm[Hg] [facility] 01-02-2023 21:09-0400 Body temperature 98.4 [degF] [facility] 01-02-2023 21:09-0400 Diastolic blood pressure 94 mm[Hg] [facility] 01-02-2023 21:09-0400 Heart rate 87 /min [facility] 01-02-2023 21:09-0400 Respiratory rate 18 /min [facility] 01-02-2023 21:09-0400 Systolic blood pressure 139 mm[Hg] [facility] 01-02-2023 21:05-0400 Body height 172.72 cm [facility] 01-02-2023 21:05-0400 Body mass index (BMI) [Ratio] 21.4 kg/m2 [facility] 01-02-2023 21:05-0400 Body weight 63.95 kg [facility] 01-02-2023 06:36-0400 Body height 172.72 cm [facility] 01-02-2023 06:36-0400 Body mass index (BMI) [Ratio] 21.7 kg/m2 [facility] 01-02-2023 06:36-0400 Body temperature 98.2 [degF] [facility] 01-02-2023 06:36-0400 Body weight 64.8 kg [facility] 01-02-2023 06:36-0400 Diastolic blood pressure 76 mm[Hg] [facility] 01-02-2023 06:36-0400 Heart rate 76 /min [facility] 01-02-2023 06:36-0400 Respiratory rate 17 /min [facility] 01-02-2023 06:36-0400 SaO2% (BldA) [Mass fraction] 98 % [facility] 01-02-2023 06:36-0400 Systolic blood pressure 141 mm[Hg] [facility] 12-31-2022 09:35-0400 Respiratory rate 16 /min [facility] 12-31-2022 08:55-0400 Body mass index (BMI) [Ratio] 20.3 kg/m2 [facility] 12-31-2022 08:55-0400 Body temperature 98 [degF] [facility] 12-31-2022 08:55-0400 Body weight 60.78 kg [facility] 12-31-2022 08:55-0400 Diastolic blood pressure 70 mm[Hg] [facility] 12-31-2022 08:55-0400 Heart rate 79 /min [facility] 12-31-2022 08:55-0400 SaO2% (BldA) [Mass fraction] 99 % [facility] 12-31-2022 08:55-0400 Systolic blood pressure 112 mm[Hg] [facility] 12-01-2022 21:38-0500 Diastolic blood pressure 63 mm[Hg] [facility] 12-01-2022 21:38-0500 Heart rate 64 /min [facility] 12-01-2022 21:38-0500 Systolic blood pressure 127 mm[Hg] [facility] 12-01-2022 20:44-0500 Body height 172.72 cm [facility] 12-01-2022 20:44-0500 Body mass index (BMI) [Ratio] 21.9 kg/m2 [facility] 12-01-2022 20:44-0500 Body temperature 99.3 [degF] [facility] 12-01-2022 20:44-0500 Body weight 65.4 kg [facility] 12-01-2022 20:44-0500 Respiratory rate 18 /min [facility] 12-01-2022 20:44-0500 SaO2% (BldA) [Mass fraction] 95 % [facility] 10-10-2022 22:52-0500 Diastolic blood pressure 90 mm[Hg] [facility] 10-10-2022 22:52-0500 Heart rate 98 /min [facility] 10-10-2022 22:52-0500 Respiratory rate 15 /min [facility] 10-10-2022 22:52-0500 SaO2% (BldA) [Mass fraction] 99 % [facility] 10-10-2022 22:52-0500 Systolic blood pressure 136 mm[Hg] [facility] 10-10-2022 21:07-0500 Body mass index (BMI) [Ratio] 21.2 kg/m2 [facility] 10-10-2022 21:07-0500 Body temperature 97 [degF] [facility] 10-10-2022 21:07-0500 Body weight 63.5 kg [facility] 10-02-2022 19:30-0500 Diastolic Blood Pressure Non-Invasive [address] MCKAYLA CARSON DO [facility] 10-02-2022 19:30-0500 Heart rate 112 /min DR MCKAYLA CARSON DO [facility] 10-02-2022 19:30-0500 Respiratory rate 18 /min DR MCKAYLA CARSON DO [facility] 10-02-2022 19:30-0500 Systolic Blood Pressure Non-Invasive [address] MCKAYLA CARSON DO [facility] 09-09-2022 13:19-0500 Body height 172.72 cm [facility] Work Phone: 09-09-2022 13:19-0500 Body mass index (BMI) [Ratio] 19 kg/m2 [facility] 09-09-2022 13:19-0500 Body temperature 97.6 [degF] [facility] 09-09-2022 13:19-0500 Body weight 56.69 kg [facility] 09-09-2022 13:19-0500 Diastolic blood pressure 88 mm[Hg] [facility] 09-09-2022 13:19-0500 Heart rate 98 /min [facility] 09-09-2022 13:19-0500 Respiratory rate 18 /min [facility] 09-09-2022 13:19-0500 SaO2% (BldA) [Mass fraction] 99 % [facility] 09-09-2022 13:19-0500 Systolic blood pressure 113 mm[Hg] [facility] 09-03-2022 17:27-0500 Respiratory rate 22 /min [facility] 09-03-2022 17:00-0500 Diastolic blood pressure 88 mm[Hg] [facility] 09-03-2022 17:00-0500 Systolic blood pressure 140 mm[Hg] [facility] 09-03-2022 12:40-0500 Body height 172.72 cm [facility] Work Phone: 09-03-2022 12:40-0500 Body mass index (BMI) [Ratio] 20.5 kg/m2 [facility] 09-03-2022 12:40-0500 Body temperature 100 [degF] [facility] 09-03-2022 12:40-0500 Body weight 61.23 kg [facility] 09-03-2022 12:40-0500 Heart rate 117 /min [facility] 09-03-2022 12:40-0500 SaO2% (BldA) [Mass fraction] 100 % [facility] 08-20-2022 11:21-0500 Body height 172.72 cm [facility] Work Phone: 08-20-2022 11:21-0500 Body mass index (BMI) [Ratio] 19.8 kg/m2 [facility] 08-20-2022 11:21-0500 Body temperature 96.5 [degF] [facility] 08-20-2022 11:21-0500 Body weight 58.96 kg [facility] 08-20-2022 11:21-0500 Diastolic blood pressure 92 mm[Hg] [facility] 08-20-2022 11:21-0500 Heart rate 102 /min [facility] 08-20-2022 11:21-0500 Respiratory rate 18 /min [facility] 08-20-2022 11:21-0500 SaO2% (BldA) [Mass fraction] 99 % [facility] 08-20-2022 11:21-0500 Systolic blood pressure 130 mm[Hg] [facility] 07-30-2022 14:56-0400 Body mass index (BMI) [Ratio] 20.7 kg/m2 [facility] Work Phone: 07-30-2022 14:56-0400 Body temperature 98.2 [degF] [facility] Work Phone: 07-30-2022 14:56-0400 Body weight 61.7 kg [facility] Work Phone: 07-30-2022 14:56-0400 Diastolic blood pressure 82 mm[Hg] [facility] Work Phone: 07-30-2022 14:56-0400 Heart rate 98 /min [facility] Work Phone: 07-30-2022 14:56-0400 Respiratory rate 16 /min [facility] Work Phone: 07-30-2022 14:56-0400 SaO2% (BldA) [Mass fraction] 100 % [facility] Work Phone: 07-30-2022 14:56-0400 Systolic blood pressure 113 mm[Hg] [facility] Work Phone: 07-30-2022 03:00-0400 Heart rate 77 /min [facility] Work Phone: 07-30-2022 03:00-0400 Respiratory rate 15 /min [facility] Work Phone: 07-30-2022 03:00-0400 SaO2% (BldA) [Mass fraction] 99 % [facility] Work Phone: 07-30-2022 01:10-0400 Diastolic blood pressure 79 mm[Hg] [facility] Work Phone: 07-30-2022 01:10-0400 Systolic blood pressure 129 mm[Hg] [facility] Work Phone: 07-29-2022 21:11-0400 Body height 172.72 cm [facility] Work Phone: 07-29-2022 21:11-0400 Body mass index (BMI) [Ratio] 19.8 kg/m2 [facility] Work Phone: 07-29-2022 21:11-0400 Body temperature 97.6 [degF] [facility] Work Phone: 07-29-2022 21:11-0400 Body weight 58.96 kg [facility] Work Phone: 06-17-2022 20:24-0400 Body height 172.72 cm [facility] Work Phone: 06-17-2022 20:24-0400 Body mass index (BMI) [Ratio] 20.5 kg/m2 [facility] Work Phone: 06-17-2022 20:24-0400 Body temperature 98.4 [degF] [facility] Work Phone: 06-17-2022 20:24-0400 Body weight 61.23 kg [facility] Work Phone: 06-17-2022 20:24-0400 Diastolic blood pressure 73 mm[Hg] [facility] Work Phone: 06-17-2022 20:24-0400 Heart rate 95 /min [facility] Work Phone: 06-17-2022 20:24-0400 Respiratory rate 16 /min [facility] Work Phone: 06-17-2022 20:24-0400 SaO2% (BldA) [Mass fraction] 92 % [facility] Work Phone: 06-17-2022 20:24-0400 Systolic blood pressure 129 mm[Hg] [facility] Work Phone: 05-02-2022 02:30-0400 Body height 172.7 cm Emir Figueredo MD Work Phone: [facility] 05-02-2022 02:30-0400 Body mass index (BMI) [Ratio] 22.05 kg/m2 Emir Figueredo MD Work Phone: [facility] 05-02-2022 02:30-0400 Body temperature 98.29 [degF] Emir Figueredo MD Work Phone: [facility] 05-02-2022 02:30-0400 Body weight 65.77 kg Emir Figueredo MD Work Phone: [facility] 05-02-2022 02:30-0400 Diastolic blood pressure 82 mm[Hg] Emir Figueredo MD Work Phone: [facility] 05-02-2022 02:30-0400 Heart rate 114 /min Emir Figueredo MD Work Phone: [facility] 05-02-2022 02:30-0400 Respiratory rate 16 /min Emir Figueredo MD Work Phone: [facility] 05-02-2022 02:30-0400 SaO2% (BldA) [Mass fraction] 97 % Emir Figueredo MD Work Phone: [facility] 05-02-2022 02:30-0400 Systolic blood pressure 123 mm[Hg] Emir Figueredo MD Work Phone: [facility] 03-28-2022 17:11-0400 Diastolic blood pressure 79 mm[Hg] Bassem Elena MD Work Phone: [facility] 03-28-2022 17:11-0400 Heart rate 80 /min Bassem Elena MD Work Phone: [facility] 03-28-2022 17:11-0400 Respiratory rate 14 /min Bassem Elena MD Work Phone: [facility] 03-28-2022 17:11-0400 SaO2% (BldA) [Mass fraction] 100 % Bassem Elena MD Work Phone: [facility] 03-28-2022 [id number] Systolic blood pressure 132 mm[Hg] Bassem Elena MD Work Phone: [facility] 03-28-2022 14:05-0400 Body height 172.7 cm Bassem Elena MD Work Phone: [facility] 03-28-2022 14:05-0400 Body mass index (BMI) [Ratio] 20.53 kg/m2 Bassem Elena MD Work Phone: [facility] 03-28-2022 14:05-0400 Body temperature 98.4 [degF] Bassem Elena MD Work Phone: [facility] 03-28-2022 14:05-0400 Body weight 61.24 kg Bassem Elena MD Work Phone: [facility] 03-27-2022 15:10-0400 Body height 172.7 cm Kevin Gill PA-C Work Phone: [facility] 03-27-2022 15:10-0400 Body temperature 98.6 [degF] Kevin Gill PA-C Work Phone: [facility] 03-27-2022 15:10-0400 Body weight 63.96 kg Kevin Gill PA-C Work Phone: [facility] 03-27-2022 15:10-0400 Diastolic blood pressure 88 mm[Hg] Kevin Gill PA-C Work Phone: [facility] 03-27-2022 15:10-0400 Heart rate 106 /min Kevin Gill PA-C Work Phone: [facility] 03-27-2022 15:10-0400 Respiratory rate 16 /min Kevin Gill PA-C Work Phone: [facility] 03-27-2022 15:10-0400 SaO2% (BldA) [Mass fraction] 96 % Kevin Gill PA-C Work Phone: [facility] 03-27-2022 15:10-0400 Systolic blood pressure 110 mm[Hg] Kevin Gill PA-C Work Phone: [facility] 03-23-2022 19:39-0400 Body height 172.7 cm Florecita Caruso MD Work Phone: [facility] 03-23-2022 19:39-0400 Body mass index (BMI) [Ratio] 20.53 kg/m2 Florecita Caruso MD Work Phone: [facility] 03-23-2022 19:39-0400 Body temperature 98.8 [degF] Florecita Caruso MD Work Phone: [facility] 03-23-2022 19:39-0400 Body weight 61.24 kg Florecita Caruso MD Work Phone: [facility] 03-23-2022 19:39-0400 Diastolic blood pressure 79 mm[Hg] Florecita Caruso MD Work Phone: [facility] 03-23-2022 19:39-0400 Heart rate 94 /min Florecita Caruso MD Work Phone: [facility] 03-23-2022 19:39-0400 Respiratory rate 18 /min Florecita Caruso MD Work Phone: [facility] 03-23-2022 19:39-0400 SaO2% (BldA) [Mass fraction] 99 % Florecita Caruso MD Work Phone: [facility] 03-23-2022 19:39-0400 Systolic blood pressure 123 mm[Hg] Florecita Caruso MD Work Phone: [facility] 03-17-2022 19:10-0400 Body temperature 98.2 [degF] Wally Burleson MD Work Phone: [facility] 03-17-2022 19:10-0400 Diastolic blood pressure 82 mm[Hg] Wally Burleson MD Work Phone: [facility] 03-17-2022 19:10-0400 Heart rate 96 /min Wally Burleson MD Work Phone: [facility] 03-17-2022 19:10-0400 Respiratory rate 18 /min Wally Burleson MD Work Phone: [facility] 03-17-2022 19:10-0400 SaO2% (BldA) [Mass fraction] 99 % Wally Burleson MD Work Phone: [facility] 03-17-2022 19:10-0400 Systolic blood pressure 131 mm[Hg] Wally Burleson MD Work Phone: [facility] 02-16-2022 20:02-0400 Body temperature 97.9 [degF] Lynn Brenda DO Work Phone: [facility] 02-16-2022 20:02-0400 Diastolic blood pressure 88 mm[Hg] Lynn Brenda DO Work Phone: [facility] 02-16-2022 20:02-0400 Heart rate 98 /min Lynn Brenda DO Work Phone: [facility] 02-16-2022 20:02-0400 Respiratory rate 18 /min Lynn Brenda DO Work Phone: [facility] 02-16-2022 20:02-0400 SaO2% (BldA) [Mass fraction] 97 % Lynn Brenda DO Work Phone: [facility] 02-16-2022 20:02-0400 Systolic blood pressure 122 mm[Hg] Lynn Brenda DO Work Phone: [facility] 12-19-2021 09:29-0400 Body temperature 98.78 [degF] JENNIFER VALLES MD [facility] 12-19-2021 09:29-0400 Body weight 65.8 kg JENNIFER VALLES MD [facility] 12-19-2021 09:29-0400 Diastolic blood pressure 75 mm[Hg] JENNIFER VALLES MD [facility] 12-19-2021 09:29-0400 Heart rate 97 /min JENNIFER VALLES MD [facility] 12-19-2021 09:29-0400 Respiratory rate 16 /min JENNIFER VALLES MD [facility] 12-19-2021 09:29-0400 Systolic blood pressure 142 mm[Hg] JENNIFER VALLES MD [facility] 12-16-2021 22:42-0400 Body height 172.7 cm Wally Burleson MD Work Phone: [facility] 12-16-2021 22:42-0400 Body mass index (BMI) [Ratio] 21.13 kg/m2 Wally Burleson MD Work Phone: [facility] 12-16-2021 22:42-0400 Body temperature 98.1 [degF] Wally Burleson MD Work Phone: [facility] 12-16-2021 22:42-0400 Body weight 63.05 kg Wally Burleson MD Work Phone: [facility] 12-16-2021 22:42-0400 Diastolic blood pressure 95 mm[Hg] Wally Burleson MD Work Phone: [facility] 12-16-2021 22:42-0400 Heart rate 97 /min Wally Burleson MD Work Phone: [facility] 12-16-2021 22:42-0400 Respiratory rate 18 /min Wally Burleson MD Work Phone: [facility] 12-16-2021 22:42-0400 SaO2% (BldA) [Mass fraction] 98 % Wally Burleson MD Work Phone: [facility] 12-16-2021 22:42-0400 Systolic blood pressure 140 mm[Hg] Wally Burleson MD Work Phone: [facility] 10-04-2021 19:16-0500 Body height 172.7 cm Tereso Kuo MD Work Phone: [facility] 10-04-2021 19:16-0500 Body mass index (BMI) [Ratio] 22.5 kg/m2 Tereso Kuo MD Work Phone: [facility] 10-04-2021 19:16-0500 Body temperature 99.1 [degF] Tereso Kuo MD Work Phone: [facility] 10-04-2021 19:16-0500 Body weight 67.13 kg Tereso Kuo MD Work Phone: [facility] 10-04-2021 19:16-0500 Diastolic blood pressure 86 mm[Hg] Tereso Kuo MD Work Phone: [facility] 10-04-2021 19:16-0500 Heart rate 92 /min Tereso Kuo MD Work Phone: [facility] 10-04-2021 19:16-0500 Respiratory rate 16 /min Tereso Kuo MD Work Phone: [facility] 10-04-2021 19:16-0500 SaO2% (BldA) [Mass fraction] 96 % Tereso Kuo MD Work Phone: [facility] 10-04-2021 19:16-0500 Systolic blood pressure 110 mm[Hg] Tereso Kuo MD Work Phone: [facility] 08-16-2021 19:03-0500 Diastolic blood pressure 84 mm[Hg] Florecita Lombardi MD Work Phone: [facility] 08-16-2021 19:03-0500 Heart rate 84 /min Florecita Lombardi MD Work Phone: [facility] 08-16-2021 19:03-0500 Respiratory rate 18 /min Florecita Lmobardi MD Work Phone: [facility] 08-16-2021 19:03-0500 SaO2% (BldA) [Mass fraction] 97 % Florecita Lombardi MD Work Phone: [facility] 08-16-2021 19:03-0500 Systolic blood pressure 127 mm[Hg] Florecita Lombardi MD Work Phone: [facility] 08-16-2021 18:07-0500 Body height 172.7 cm Florecita Lombardi MD Work Phone: [facility] 08-16-2021 18:07-0500 Body mass index (BMI) [Ratio] 20.53 kg/m2 Florecita Lombardi MD Work Phone: [facility] 08-16-2021 18:07-0500 Body temperature 99.7 [degF] Florecita Lombardi MD Work Phone: [facility] 08-16-2021 18:07-0500 Body weight 61.24 kg Florecita Lombardi MD Work Phone: [facility] Encounters Encounter Date Encounter Type Care Provider Facility Start: 06-15-2025 End: 06-16-2025 Emergency department patient visit No Primary Care Physician -Emergency Department Work Phone: Start: 04-27-2025 End: 04-27-2025 Office outpatient visit 25 minutes Emir Simons PA-C Work Phone: [facility] Comment on above: Acute non-recurrent sinusitis, unspecified location (Primary Dx) Start: 04-27-2025 End: 04-27-2025 ambulatory DALTON ART Facility:[facility] Start: 04-05-2025 End: 04-05-2025 Emergency department patient visit No Primary Care Physician -Emergency Department Work Phone: Start: 03-19-2025 End: 03-19-2025 Emergency department patient visit No Primary Care Physician -Emergency Department Work Phone: Start: 12-14-2024 End: 12-14-2024 ambulatory DALTON ART Facility:[facility] Start: 12-14-2024 End: 12-14-2024 Office outpatient visit 15 minutes Alex Landers MD Work Phone: [facility] Comment on above: Post-nasal drainage (Primary Dx) Start: 12-06-2024 End: 12-06-2024 Emergency department patient visit Dr. Marco Antonio Cintron MD -Emergency Department Work Phone: Start: 10-13-2024 End: 10-13-2024 Emergency department patient visit Antwan Vilma Facility:[facility] Start: 09-19-2024 End: 09-19-2024 Emergency department patient visit Michel [facility] Facility:[facility] Start: 09-11-2024 End: 09-11-2024 Emergency department patient visit No Primary Care Physician Facility:[facility] Start: 08-20-2024 End: 08-20-2024 Emergency department patient visit Alan Kel Facility:[facility] Start: 07-04-2024 End: 07-04-2024 Emergency department patient visit Nolan Brady Facility:[facility] Start: 12-25-2023 End: 12-25-2023 [facility] [facility] Work Phone: Start: 11-19-2023 End: 11-19-2023 Patient encounter procedure Travis KLEIN Work Phone: [facility] Comment on above: Mouth sore (Primary Dx); Bacterial sinusitis Start: 06-05-2023 End: 06-05-2023 Emergency department patient visit [facility] Work Phone: Start: 02-28-2023 End: 02-28-2023 Emergency department patient visit [facility] Start: 02-03-2023 End: 02-03-2023 Emergency department patient visit [facility] Start: 01-13-2023 End: 01-13-2023 Emergency department patient visit [facility] Start: 01-02-2023 End: 01-03-2023 Emergency department patient visit [facility] Start: 01-02-2023 End: 01-02-2023 Emergency department patient visit [facility] Start: 12-31-2022 End: 12-31-2022 Emergency department patient visit [facility] Start: 12-01-2022 End: 12-01-2022 Emergency department patient visit [facility] Start: 10-10-2022 End: 10-10-2022 Emergency department patient visit [facility] Start: 10-02-2022 End: 10-02-2022 Emergency department patient visit DR. MCKAYLA CARSON DO Facility:B Start: 10-02-2022 End: 10-02-2022 Emergency department patient visit DR MCKAYLA CARSON DO [facility] Start: 09-09-2022 End: 09-09-2022 Emergency department patient visit [facility] Start: 09-03-2022 End: 09-03-2022 Emergency department patient visit [facility] Start: 08-20-2022 End: 08-20-2022 Emergency department patient visit [facility] Start: 07-30-2022 End: 07-30-2022 Emergency department patient visit [facility] Start: 07-29-2022 End: 07-30-2022 Emergency department patient visit [facility] Start: 06-30-2022 Telephone encounter Kevin rivero PA-C Work Phone: Urology Comment on above: Vitamin Manager - O ther Start: 06-17-2022 End: 06-17-2022 Emergency department patient visit [facility] Start: 05-02-2022 End: 05-02-2022 Emergency department patient visit Emir Figueredo MD Work Phone: [facility] Comment on above: Acute cystitis with hematuria (Primary Dx) Start: 03-30-2022 End: 03-31-[address] NEVAEH FRAGA MD. Facility:B Start: 03-30-2022 End: 03-30-[address] NEVAEH FRAGA MD [facility] Start: 03-30-2022 Telephone encounter Kevin rivero PA-C Work Phone: Urology Comment on above: Results Start: 03-28-2022 End: 03-28-2022 Emergency department patient visit Bassem Elena MD Work Phone: [facility] Comment on above: Abnormal laboratory test (Primary Dx); Anxiety state Start: 03-27-2022 End: 03-27-2022 Patient encounter procedure Kevin Gill PA-C Work Phone: Urology Comment on above: Dysuria (Primary Dx) Start: 03-25-2022 Telephone encounter Kevin rivero PA-C Work Phone: Urology Comment on above: Received Outside Med ical Records Start: 03-23-2022 End: 03-23-2022 Emergency department patient visit Florecita Caruso MD Work Phone: [facility] Comment on above: Dysuria (Primary Dx) ; Anxiety state Start: 03-17-2022 End: 03-17-2022 Emergency department patient visit Wally Burleson MD Work Phone: [facility] Comment on above: Dysuria (Primary Dx) Start: 02-16-2022 End: 02-16-2022 Emergency department patient visit Lynn Gutierrez DO Work Phone: [facility] Comment on above: Seasonal allergic rh initis due to pollen (Primary Dx) Start: 02-11-[address] NEVAEH FRAGA MD. Facility:B Start: 02-03-[address] NEVAEH FRAGA MD. Facility:B Start: 12-19-2021 End: 12-19-2021 Emergency department patient visit DR. NEVAEH FRAGA MD. Facility:B Start: 12-19-2021 End: 12-19-2021 Emergency department patient visit JENNIFER VALLES MD [facility] Start: 12-16-2021 End: 12-16-2021 Emergency department patient visit Wally Burleson MD Work Phone: [facility] Comment on above: Anxiety state (Prima ry Dx) Start: 10-04-2021 End: 10-04-2021 Emergency department patient visit Tereso Kuo MD Work Phone: [facility] Comment on above: Acute nonintractable headache, unspecified headache type (Primary Dx) Start: 08-16-2021 End: 08-16-2021 Emergency department patient visit Florecita Lombardi MD Work Phone: [facility] Comment on above: Bronchitis (Primary Dx) Start: 04-10-2017 End: 04-11-2017 Emergency department patient visit REBEL W EDGAR Facility:[facility] Start: 04-09-2017 End: 04-10-2017 Emergency department patient visit MILE SANCHEZ Facility:[facility] Start: 01-07-2017 End: 01-07-2017 Patient encounter procedure JOSSY MURILLO Facility:[facility] Procedures Date Procedure Procedure Detail Performing [...] P,Tdap,Td Vaccine (8 - Td or Tdap) [facility] Start: 05-22-2026 DTaP/Tdap/Td vaccine (2 - Td or Tdap) DTaP/Tdap/Td vaccine (2 - Td or Tdap) [facility] Start: 05-22-2026 Urine microalbumin profile DTa P,Tdap,Td Vaccine (7 - Td or Tdap) [facility] Start: 06-15-2025 [facility] Start: 06-04-2025 Influenza vaccination Influenz a Vaccine (#1) [facility] Start: 04-05-2025 End: 04-05-2025 [facility] Start: 03-19-2025 End: 03-19-2025 [facility] Start: 12-06-2024 [facility] Start: 10-04-2024 Medicare Advantage A nnual Wellness Visit Medicare Advantage Annual Wellness Visit [facility] Start: 06-04-2024 Covid-19 Vaccine () Covid-19 Vaccine () [facility] Start: 06-04-2024 Influenza vaccination Influenz a Vaccine (#1) [facility] Start: 12-25-2023 End: 12-25-2023 [facility] Start: 10-04-2023 Depression Assessment Depression Ass essment [facility] Start: 06-05-2023 [facility] Start: 01-02-2023 Emergency department visit low/moder severity EMERGENCY DEPT VISIT SF MDM [facility] Start: 2022 Lipid panel Lipid Screening [facility] Start: 06-04-2022 Influenza vaccination [facility] Start: 10-04-2021 DEPRESSION ASSESSMENT DEPRESSION ASS ESSMENT [facility] Start: 06-04-2021 Influenza vaccination Flu vaccine (# 1) [facility] Start: 2006 Urine microalbumin profile DTA P,TDAP,TD (1 - Tdap) [facility] Start: 2005 Anxiety Screening Anxiety Screening [facility] Start: 2005 Depression Screening Depression Scre [facility] Start: 2005 HEPATITIS C SCREENING HEPATITIS C [facility] Start: 2005 Hepatitis C screening Hepatitis C [facility] Start: 2005 HIV SCREENING HIV SCREENING [facility] Start: 2005 HIV screening HIV Screening [facility] Start: 08-18-2000 Hepatitis B Vaccine (2 of 3 - 3-dose series) Hepatitis B Vaccine (2 of 3 - 3-dose series) [facility] Start: 1999 Adult depression scr eening assessment DEPRESSION SCREENING [facility] Start: 1999 COVID-19 Vaccine (1) COVID-19 Vaccin e (1) [facility] Start: 1992 COVID-19 VACCINE (#1) COVID-19 VACCI NE (#1) [facility] Start: 1992 COVID-19 Vaccine (1) COVID-19 Vaccin e (1) [facility] Start: 01-09-1988 COVID-19 Vaccine (#1) COVID-19 Vacci ne (#1) [facility] Start: 1987 HEPATITIS B (1 of 3 - 3-dose series) HEPATITIS B (1 of 3 - 3-dose series) [facility] Bacteria identified in Urine by Culture URINE CULTURE Microbiology Routine Dysuria 03/27/2022 3:49 PM EDT [facility] Work Phone: End: 03-17-2022 C. [...] rences starting 05/02/2022 until 05/02/2022 [facility] Work [facility]: Organism count, micr oscopic method [facility] Work Phone: Patient Education [facility] Work Phone: Patient referral [facility] Work Phone: Streptococcus pyogen es Ag [Presence] in Throat by Immunofluorescence [facility] Work Phone: Urinalysis, blood, qualitative [facility] Work Phone: Urine microscopy: ep ithelial cells [facility] Work Phone: White blood cell count [facility] Work Phone: [facility] Immunizations Immunization Date Immunization Notes Care Provider Fa [facility] 04-05-2025 tetanus toxoid, redu jerrell diphtheria toxoid, and acellular pertussis vaccine, adsorbed No Primary Care Physician [facility] 07-13-2023 influenza virus vacc ine, unspecified formulation Alex Landers MD Work Phone: [facility] 08-23-2020 influenza virus vacc ine, unspecified formulation JENNIFER VALLES MD [facility] 08-15-2020 influenza virus vacc ine, unspecified formulation JENNIFER VALLES MD [facility] 07-29-2019 influenza virus vacc ine, unspecified formulation JENNIFER VALLES MD [facility] 07-11-2018 influenza virus vacc ine, unspecified formulation JENNIFER VALLES MD [facility] 07-04-2018 influenza virus vacc ine, unspecified formulation JENNIFER VALLES MD [facility] 07-01-2017 influenza virus vacc ine, unspecified formulation JENNIFER VALLES MD [facility] 05-22-2016 tetanus toxoid, redu jerrell diphtheria toxoid, and acellular pertussis vaccine, adsorbed JENNIFER VALLES MD [facility] 07-20-2014 influenza virus vacc ine, unspecified formulation JENNIFER VALLES MD [facility] 07-20-2014 influenza, seasonal, injectable Kevin Gill PA-C Work Phone: [facility] 07-20-2014 pneumococcal polysaccharide vaccine, 23 valent JENNIFER VALLES MD [facility] 07-21-2000 hepatitis B pediatri c vaccine JENNIFER VALLES MD [facility] 07-21-2000 measles/mumps/rubell a virus vaccine JENNIFER VALLES MD [facility] 10-16-1988 measles/mumps/rubell a virus vaccine JENNIFER VALLES MD [facility] Payers Date Payer Category Payer Self-pay [id number] 2024 [facility] [id number] 2023 Medicare (Managed Care) [employer] [id number] 2016 Medicaid [employer] [facility] MEDICAID [id number] 2016-Present [phone] [address] [place] [address] Medicaid [id number] 2016 Medicaid [id number] 2015 Unknown [id number] 1987 Unknown [id number] [id number]. 732 1987 Unknown [id number] 2.16.840.1.839012.3.579.2. 627 1987 Unknown [id number] 2.16.840.1.053192.3.579.2. 627 1987 Unknown [id number] 2.16.840.1.973993.3.579.2. 627 1987 Unknown [id number] 2.16.840.1.870027.3.579.2. 627 1987 Unknown [id number] 2.16.840.1.430876.3.579.2. 627 Unknown [id number] 2.16.840.1.095025.3.579.2. 462 Unknown [id number] 2.16.840.1.703881.3.579.2. 462 Unknown [id number] 2.16.840.1.094876.3.579.2. 462 Unknown [id number] 2.16.840.1.065951.3.579.2. 462 Unknown [id number] 2.16.840.1.401873.3.579.2. 462 Unknown [id number] 2.16.840.1.508093.3.579.2. 462 Unknown [id number] 2.16.840.1.378914.3.579.2. 462 Unknown [id number] 2.16.840.1.577101.3.579.2. 462 Unknown [id number] 2.16.840.1.792837.3.579.2. 462 Social History Date Type Detail Facility Start: 10-04-2016 Tobacco smoking stat [facility] Occasional tobacco smoker [employer] Work Phone: Start: 10-04-2016 End: 04-27-2025 Tobacco use and exposure User of smokeless tobacco [employer] Phone: Start: 08-16-2021 End: 04-27-2025 Alcohol intake Current drinker of alcohol (finding) [employer] Phone: Start: 10-04-2016 History SDOH Alcohol Comment socially [employer] Phone: Start: 1985 Sex Assigned At Not on file [facility] [employer] Work Phone: Start: 02-06-2022 End: 05-02-2022 Exposure to SARS-CoV-2 (event) Not sure [employer] Start: 12-15-2021 End: 04-27-2025 Tobacco smoking status NHIS Ex-smoker [employer] Start: 12-16-2021 End: 05-02-2022 Alcohol intake Ex-drinker (finding) [employer] Phone: Start: 08-15-2018 End: 12-25-2023 Tobacco smoking consumption unknown (finding) [facility] Smokeless tobacc o user within last 30 days [facility] Sex Assigned At [facility] History of tobacco use Chews Tobacco [facility] Work Phone: Start: 08-20-2015 End: 04-27-2025 Cigarettes smoked current (pack per day) - Reported 0.3 [facility] History of tobacco use Snuff User [facility] Start: 07-20-2014 History SDOH Alcohol Comment occasional [facility] Start: 06-17-2015 End: 11-19-2023 Tobacco Comment vapor cigarettes [facility] History of tobacco use Current smoker [facility] Work Phone: Start: 04-15-2020 None [facility] Start: 12-01-2015 Alone [facility] Start: 1985 Sex Assigned At Male [facility] History of tobacco use Cigarette Smoker C [facility] Start: 11-19-2023 End: 04-27-2025 Tobacco use panel [facility] Start: 03-19-2025 End: 06-16-2025 Tobacco smoking status NHIS Smokes tobacco daily (finding) [facility] Functional Status Date Assessment Result Facility 10-02-2022 Functional Status Room check performed [facility] 04-23-2015 Are you deaf, or do you have serious difficulty hearing No 04/23/2015 7:35 PM EDT Flores Navarro LPN No [facility] 04-23-2015 Are you blind, or do you have serious difficulty seeing, even when wearing glasses No 04/23/2015 7:35 PM EDT Flores Navarro LPN No [facility] 04-23-2015 Do you have serious difficulty walking or climbing stairs No 04/23/2015 7:35 PM EDT Flores Navarro LPN No [facility] 04-23-2015 Do you have difficul ty dressing or bathing No 04/23/2015 7:35 PM EDT Flores Navarro LPN No [facility] 04-23-2015 Because of a physica l, mental, or emotional condition, do you have difficulty doing errands alone such as visiting a physician's office or shopping No 04/23/2015 7:35 PM EDT Flores Navarro LPN No [facility] Mental Status Date Assessment Result Facility 12-06-2024 Cognitive function Level Of Cons ciousness Awake;Alert;Appropriate;Fol lows Commands [facility] Work Phone: 01-13-2023 Cognitive function Level Of Cons ciousness Awake;Alert;Appropriate;Fol lows Commands [facility] Work Phone: 10-02-2022 Mental Status Orientation Oriented x 4 [facility] 10-02-2022 Mental Status [facility] 07-30-2022 Cognitive function Level Of Cons ciousness Awake;Alert;Appropriate;Fol lows Commands [facility] Work Phone: 06-17-2022 Cognitive function Level Of Cons ciousness Awake;Alert;Appropriate;Fol lows Commands [facility] Work Phone: 04-23-2015 Because of a physica l, mental, or emotional condition, do you have serious difficulty concentrating, remembering, or making decisions Yes 04/23/2015 7:35 PM EDT Flores Navarro LPN Yes [facility] Clinical Notes 08-16-2021 to 06-15-2025 Note Date & Type Note Facility 06-15-2025 Discharge summary [facility] 06-15-2025 Discharge summary Note Date/Time June 15, 2025 11:40pm [facility] Medical Records Department [address] [place] [address] Emergency Department Summary 06/15/25 MR#: [id number] Acct: [id number] Name: GILBERTO JOHNSON Rep #:[id number] : [...] it with soap and water and hand practice advisor. He was worried about scarring which is [...] intact Psych: Cooperative, appropriate mood and affect [facility] Medical History Acute sinusitis, unspecified [...] it with soap and water and hand practice advisor. He is up-to-date on tetanus. Dog is [...] Primary [Primary Care Provider] - Print Language: Salvadorean What to do if you have Problems For any increased pain, shortness of breath, bleeding, nausea or vomiting, chestpain, or any unexpected problems, contact your Primary Care Provider. Call [facility] ([phone]) or report to the closest Emergency Room. Call 911 if necessary. 06/15/25 5910 <Electronically signed by Chidi Hermosillo DO> Cosigner Signature (if applicable): CC: No Primary Care Physician ~ Signed [facility] Work Phone: 1(571) 805-169607-25-2025 NoteHNO ID: [id number] Author: EMIR SIMONS PA-C Service: ? Author Type: Physician Supervisory Air Intercept Controller Type: Progress Notes Filed: 04/27/2025 18:40 Note [...] Diagnostic procedures: low Management options: low [facility] History of Present illness Narrative* Emir Simons [...] options: edith Simons PA-C [facility] Discharge summary [facility] Medical Records Department [address] [place] [address] Emergency Department Summary 04/05/25 MR#: [id number] Acct: [id number] Name: GILBERTO JOHNSON Rep #:[id number] : [...] 15 Psych: Cooperative, appropriate mood and affect [facility] Medical History Acute sinusitis, unspecified [...] IMPRESSION: No acute intracranial findings Reading Location: [place] [address] Discharge Plan Triage Chief Complaint: Laceration ED [...] concussions if you develop one. Print Language: Salvadorean Disposition Disposition: Home, Self Care What to do if you have Problems For any increased pain, shortness of breath, bleeding, nausea or vomiting, chestpain, or any unexpected problems, contact your Primary Care Provider. Call [facility] ([phone]) or report tothe closest Emergency Room. Call 911 if necessary. 04/05/25 0250 Cosigner Signature (if applicable): CC: No Primary Care Physician ~ Signed [facility]07-03-2025 Radiology Diagnostic study note [facility] Imaging Services [address] [place] [address] Brain/Head without Contrast MR#: [id number] Acct: [id number] Name: GILBERTO JOHNSON Rep #: [id number] : 1985 M 39 From: Nina Foster MD PCP: Care Physician,No Primary Status: REG ER Study:Brain/Head without Contrast Date of Exa m: 04/05/25 Exam# [id number] Ordering Dr: Chidi Xiao DO PROCEDURE: BRAIN/HEAD [...] IMPRESSION: No acute intracranial findings Reading Location: [place] [address] CC: Dr. Chidi Hermosillo DO; No Primary Care Physician ~ Ent Consultant: Signed [facility]03-13-2025 NoteHNO ID: [id number] Author: ALEX LANDERS MD Service: ? Author Type: Physician Type: Progress Notes Filed: 12/14/2024 19:08 Note Text: [facility] CARE Subjective Gilberto Johnson is a 39 [...] cetirizine and expectant management. Alex Landers MD [facility] History of Present illness Narrative* Alex [...] cetirizine and expectant management. Alex Landers MD [facility] Procedures [facility] History of Present illness Narrative* Travis Hameed, PA - 11/19/2023 5:55 PM EST This note was created using [employer]. Subjective Gilberto Johnson is a 38 year [...] RELIEF) 50 mcg/actuation nasal spray Use 1 [place] in each nostril twicedaily. loratadine (CLARITIN) 10 mg tablet Take 1 tablet by mouth once daily. naproxen (NAPROSYN) 500 mg tablet Take 1 tablet by mouth twice daily as needed (pain/inflammation, take with food.). xvceojcledGGENT-wbzzwy-ytwfhmuss (BMX 1:1:1) 1:1:1 liqd Mix in equal [...] ER evaluation. LATOYA Kendrick [facility] Hospital Discharge instructions Additional Instructions Please continue your antibiotic that was given to you at your last visit and wash the area with soap and water. The remaining redness and swelling will resolve over the next 2 to 3 days and then the scab will form.[facility] Work Phone: 1(131) 349-212102-28-[address] Elena [facility] December 01, 2022 9:30pm Note Date/Time December 01, 2022 9:28pm [facility] Medical Records Department [address] [place] [address] Emergency Department Summary 12/01/22 MR#: [id number] Acct: [id number] Name: GILBERTO JOHNSON Rep #:[id number] : [...] your Primary Care Provider. Call [facility] ([phone]) or report to the closest Emergency Room. Call 911 if necessary. 12/01/222129 <Electronically signed by Michel Elena MD> Cosigner Signature (if applicable): CC: NEVAEH FRAGA ~ Signed [facility] Work Phone: 1(603) 553-397112-30-2022 Hospital Discharge instructions Patient Education 10/02/2022 20:40:33 [...] in 1/2 cup of warm water An ofvy-lqj-cfxvxjs anesthetic gargle Use medicine for more relief Noth-aws-pgtmwiv medicine can reduce sore throat symptoms. Ask [...] swollen glands in the neck or jaw [phone] [employer]. [address] [place] [address]. All rights reserved. This information is not intended as a substitute for professional medical care. Always follow yourhealthcare professional's instructions. Follow Up Care 10/02/2022 19:21:21 With:NEVAEH FRAGA MD Address: [address] [place] [phone] When:2-4 days [facility] 12-30-2022 Emergency department Discharge summary Discharge Instructions Thank you for allowing [facility] to assist you with your healthcare needs. The following is importantdischarge information regarding your hospital visit. Diagnosis from Today's Visit swollen gland in throat What to Do Next Instructions from Your Care Team No qualifying data available. Post Acute Orders No qualifying data available. You Need to Schedule the Following Appointments Follow Up with NEVAEH FRAGA MD When Within 2-4 days Where: [address] [place] [phone] Allergies amoxicillin penicillin (Rash) Medications Please ask [...] in 1/2 cup of warm water An xhzc-jfz-dnrzdsb anesthetic gargle Use medicine for more relief Eylt-kfo-idhxsxz medicine can reduce sore throat symptoms. Ask [...] swollen glands in the neck or jaw [phone] [employer]. [address] [place], [place] [address]. All rights reserved. This information is not intended as a substitute for professional medical care. Always follow yourhealthcare professional's instructions. Additional Information VACCINATE! IT SAVES LIVES! Members of the community who have not yet received the COVID-19 vaccine and would like to receive it can visit one of [facility] vaccine clinics. There are many vaccine clinic locations within the [facility]. For locations and available times, please visit [email or web address]. It is important to note that some COVID mobile vaccine clinics are held outdoors and may be canceled in rainy orstormy conditions. To learn more about pediatric vaccinations (ages 5-11), we invite you to visit the [facility] webpage. [email or web address] learn more about the COVID-19 vaccine, we invite you to visit the [facility] website for a list of frequently asked questions. [email or web address] [email or web address] [facility] Patient Portal Access Instructions: Stay connected with your healthcare team and access your personal medical information anytime with the [employer] Patient Portal. If you would like a full copy of your medical records please contact the [facility] Medical Records Department Wednesday through Wednesday between 8a.m. and 4:30p.m. Please follow the directions below to access the portal: 1.Access the email account you provided upon registration to the [facility].2.Look for an invitation email from [facility].3.Open the email and access the invitation link: Accept Invitation to [employer]4.Fill in the required lambert to create your account. Sign into [email or web address] with your username and password that you [...] you will allow to register on the [employer] Patient Portal for access to your information. You can also access the [employer] Patient Portal on the [employer]. Simply click on Health Records under [employer] and then click on the [employer] logo. HOW TO SAFELY DISPOSE OF PRESCRIPTION [...] Call your local pharmacy or go to [email or web address] to find one close to you.3.Make use of household items: Use cat litter or old coffee grounds to dispose medications if other options arenot available. Mix your drugs with these household products, seal them in an airtight container andthrow it into the garbage. Call [facility]: [phone] to be sure your drugs can be [...] aware that I should contact my doctor. 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 Yoli Jensen LPN * Telephone Encounter - Yoli Jensen LPN - 06/30/2022 11:35 AM EDT Received fax to request records from referrals dated 03/15/22-03/21/2022. Yoli Jensen LPN [facility] Miscellaneous Notes* Telephone Encounter - Nandini [...] No infection in the urine JORGE Calderon, [place], LYNDON documented [facility] Hospital Discharge instructions* Instructions* Bassem Elena [...] important. You should call the offices of [facility] on Wednesday and ask for an appointment to be seen as soon as they can work you in; at that time they may decide that a cystoscopy or other testing is necessary to furtherevaluate the cause of your bloody urine. Also make [facility]; we are not making [...] sent through Care Everywhere. * Anxiety Disorder (Salvadorean) * Hematuria (Salvadorean) * Cystoscopy: Pre-op (Salvadorean) documented in this [facility] Work Phone: 1(970) 139-272306-24-2022 History of Present illness Narrative* Kevin Gill [...] RELIEF) 50 mcg/actuation nasal spray Use 1 [place] in each nostril twicedaily. loratadine (CLARITIN) 10 [...] Plan: Appointment with Kevin. documented in this [facility]06-[facility]22 Miscellaneous Notes* Telephone Encounter - Yoli Jensen LPN - 03/25/2022 2:35 PM EDT Received outside medical records from [facility]. Patient has appointment Wednesday. Provided to Kevin Gill PA-C to review and to operations to be scanned. Yoli Jensen LPN documented in this [facility] Hospital Discharge instructions* Instructions* Florecita Caruso MD - 03/23/2022 Take your anxiety medications when you get home. Call your doctor tomorrow for reevaluation. * Attachments The following attachments cannot be sent through Care Everywhere. * Anxiety Disorder (Salvadorean) * Dysuria (Salvadorean) documented in this [facility] Work Phone: 1(868) 774-847805-16-2022 Hospital Discharge instructions* Instructions* Lynn Gutierrez DO - 02/16/2022 You have seasonal allergies, you are given a prescription for Zyrtec and Nasacort. Follow-up with your primary care physician. Return to the emergency department for new or worsening symptoms. * Attachments The following attachments cannot be sent through Care Everywhere. * Allergies: Seasonal (Salvadorean) documented in this [facility] Work Phone: 1(187) 708-587603-20-2022 Note. MICRO - Microbiology PROCEDURE: Urine Culture [...] Locations *1: This test was performed at: [facility], [address] [place] [address], [phone]- , [facility] ([place])12-19-2021 Hospital Discharge instructions Patient Education 12/19/2021 10:17:36 [...] problems caused by scarring or long-term infections. [phone] [place] [address]. All rights reserved. This information is not intended as a substitute for professional medical care. Always follow yourhealthcare professional's instructions. Follow Up Care 12/19/2021 09:24:18 With:your urologist Address: When: Unknown [facility] 11-13-2021 Hospital Discharge instructions* Instructions* Florecita Lombardi MD - 08/16/2021 Return if high fever develops or increased shortness of breath * Attachments The following attachments cannot be sent through Care Everywhere. * Bronchitis (Salvadorean) documented in this [facility] Work Phone: Discharge summary Author Dr. 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 Call [facility] ([phone]) or report to the closest Emergency Room. Call 911 if necessary. 01/13/23 0643 <Electronically signed by Wally Richards DO> Cosigner Signature (if applicable): CC: No Primary Care Physician ~ Signed [facility] Work Phone: Discharge summary Author Chidi Hermosillo [facility] Note Date/Time April 05, 2025 2:50a m [facility] Medical Records Department [address] [place] [address] Emergency Department Summary 04/05/25 MR#: [id number] Acct: [id number] Name: GILBERTO JOHNSON Rep #:[id number] : [...] 15 Psych: Cooperative, appropriate mood and affect [facility] Medical History Acute sinusitis, unspecified [...] IMPRESSION: No acute intracranial findings Reading Location: [place] [address] Discharge Plan Triage Chief Complaint: Laceration ED [...] concussions if you develop one. Print Language: Salvadorean Disposition Disposition: Home, Self Care What to do if you have Problems For any increased pain, shortness of breath, bleeding, nausea or vomiting, chestpain, or any unexpected problems, contact your Primary Care Provider. Call [facility] ([phone]) or report to the closest Emergency Room. Call 911 if necessary. 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 Tests Pending * Urine Culture 12/19/21 [facility] Evaluation note* Diagnosis Bronchitis- Primary [...] Diagnosis Dysuria- Primary [facility]* Diagnosis Abnormal laboratory test- Primary Other abnormal clinical finding Anxiety state Anxiety state, unspecified documented in this encounter [facility] Work Phone: Evaluation note* Diagnosis Acute cystitis with hematuria- Primary Acute cystitis documented in this encounter [facility] Work Phone: Evaluation noteNo assessment information available [facility] Work Phone: Evaluation note* Diagnosis Mouth sore- Primary Other and unspecified diseases of the oral soft tissues Bacterial sinusitis Unspecified sinusitis (chronic) [facility]* Diagnosis Post-nasal drainage- Primary Unspecified sinusitis (chronic) documented in this encounter [facility] note* Diagnosis Acute non-recurrent sinusitis, unspecified location- Primary documented in this encounter [facility] course Narrative No data available for this section [facility] Hospital Discharge instructions* Attachments The following attachments cannot be sent through Care Everywhere. * Headache (Salvadorean) documented in this [facility] Work Phone: Hospital Discharge instructions* Attachments The following attachments cannot be sent through Care Everywhere. * Anxiety Disorder (Salvadorean) documented in this [facility] Work Phone: Hospital Discharge instructions* Attachments The following attachments cannot be sent through Care Everywhere. * Dysuria (Salvadorean) documented in this [facility] Work Phone: Hospital Discharge instructions No data available for this section [facility] Hospital Discharge instructions* Attachments The following attachments cannot be sent through Care Everywhere. * UTI (Urinary Tract Infection): Male (Salvadorean) documented in this [facility] Work Phone: Hospital Discharge instructions [...] get a call then that means is negative.[facility] Work Phone: Hospital Discharge instructions Additional Instructions Follow-up with your primary care physician within next 3 to 5 days.[facility] Work Phone: Hospital Discharge instructions Additional Instructions Zofran as needed for nausea. Plenty of fluids and rest. Follow-up with a local primary care physician if not improving.[facility] Work Phone: Hospital Discharge instructionsAdditional Instructions Monitor for signs of infection of your abrasion. Follow-up with your primary care physician if you do not have 1 follow-up with the one provided above. Monitor for signs of concussion which we talked about. I also printed out some information on concussions if you develop one.[facility] Work Phone: Hospital Discharge instructionsAdditional Instructions Follow-up with your primary care physician. If you do not have one follow-up with the one provided above. No lakes, mccormick, oceans, hot tubs until fully healed. Monitor for signs of infection. Take all of your antibiotics. You are given your first dose here in the emergency department.[facility] Work Phone: Progress note No data available for this section [facility] Reason for referral (narrative)No reason for referral information availableWBucyrus Community [facility] Work Phone: Summary Purpose Family History No Family History Records FoundNo Family History Records FoundNo Family History Records FoundNo Family History Records FoundNo Family History Records FoundNo Family History Records Found Advance Directives No Advanced Directives Records Found Advance Directive Response Recorded Date/ Time Living Will No June 17, 2022 8:33pm Power of Barrel Leveler No June 8:33pm Advance Directive Response Recorded Date/ Time Living Will No July 29 11:33pm Power of Barrel Leveler No July 29, 2022 11:33pm Advance Directive Response Recorded Date/ Time Living Will No August 20, 2 022 12:05pm Power of Barrel Leveler No August 20, 2022 12:05pm Advance Directive Response Recorded Date/ Time Living Will No September 03 3:25pm Power of Barrel Leveler No September 03, 2022 3:25pm Advance Directive Response Recorded Date/ Time Living Will No September 09 3:07pm Power of Barrel Leveler No September 09, 2022 3:07pm Advance Directive Response Recorded Date/ Time Living Will No December 01, 2 023 8:51pm Power of Barrel Leveler No December 01, 2022 8:51pm Advance Directive Response Recorded Date/ Time Living Will No January 02, 2023 6:38am Power of Barrel Leveler No January 02 6:38am Advance Directive Response Recorded Date/ Time Living Will No January 02, 2023 9:36pm Power of Barrel Leveler No January 02 9:36pm Advance Directive Response Recorded Date/ Time Living Will No January 13, 2023 6:20am Power of Barrel Leveler No January 13 6:20am Advance Directive Response Recorded Date/ Time Living Will No February 03, 2023 6: 17am Power of Barrel Leveler No February 03, 2023 6:17am Advance Directive Response Recorded Date/ Time Living Will No February 28, 2023 8 :00pm Power of Barrel Leveler No February 28, 2023 8:00pm Advance Directive Response Recorded Date/ Time Living Will No June 05 6:46pm Power of Barrel Leveler No June 05, 2023 6:46pm Advance Directive Response Recorded Date/ Time Living Will No December 25, 2023 3:48am Power of Barrel Leveler No December 24 3:48am Advance Directive Response Recorded Date/ Time Living Will No December 06, 2024 2:33pm Do you have a Healthcare Power of Barrel Leveler? No December 06, 2024 2:33pm Do you have a Healthcare Power of Barrel Leveler? No March 19, 2025 12:45am Advance Directive Response Recorded Date/ Time Living Will No December 06, 2024 2:33pm Do you have a Healthcare Power of Barrel Leveler? No December 06, 2024 2:33pm Do you have a Healthcare Power of Barrel Leveler? No March 19, 2025 12:45am Do you have a Healthcare Power of Barrel Leveler? No April 05, 2025 1:17am Advance Directive Response Recorded Date/ Time Do you have a Healthcare Power of Barrel Leveler? No June 16, 2025 12:04am Do you have a Healthcare Power of Barrel Leveler? No March 19, 2025 12:45am Do you have a Healthcare Power of Barrel Leveler? No April 05, 2025 1:17am Reason for Referral Specialty Diagnoses / Procedures Referred By Rosa M t Referred To Contact Family Medicine Diagnoses Acute nonintractable headache, unspecified headache type Tereso Kuo MD [address] [place] [address] Argelia Byers [facility] [address] [place] [address] Referral ID Status Reason Start Date Expiration Date V isits Requested Visits Authorized [id number] Open Specialty Services Required 10/04/2021 10/04/2022 1 1 Scheduling Instructions [address] [place] [address] Chief Complaint and Reason for Visit Chief [...] section and content) DATE CREATED AUTHOR 03/30/2018 [facility] DATE CREATED AUTHOR AUTHOR'S ORGANIZ ATION 10/27/2020 [facility] DATE CREATED AUTHOR AUTHOR'S ORGANIZ ATION 05/05/2022 [facility] DATE CREATED AUTHOR AUTHOR'S ORGANIZ ATION 10/16/2022 [facility] ([place]) DATE CREATED AUTHOR AUTHOR'S ORGANIZ ATION 04/29/2025 [facility] DATE CREATED AUTHOR AUTHOR'S ORGANIZ ATION 06/20/2025 [facility] Reason for Visit (unrecogniz ed section and [...] Comments Results Reason Comments Hematuria Reason Comments Vitamin Manager - Other Reason Comments Mouth Sores [...] or prosecute any alcohol or drug abuse patient.[facility] HospitalIn the event this information is protected by the Federal Confidentiality of Alcohol and Drug Abuse Patient Records regulations: The Federal rules restrict any use of the information to criminally investigate or prosecute any alcohol or drug abuse patient.[facility] HospitalIn the event this information is protected by the Federal Confidentiality of Alcohol and Drug Abuse Patient Records regulations: The Federal rules restrict any use of the information to criminally investigate or prosecute any alcohol or drug abuse patient.[facility] HospitalIn the event this information is protected by the Federal Confidentiality of Alcohol and Drug Abuse Patient Records regulations: The Federal rules restrict any use of the information to criminally investigate or prosecute any alcohol or drug abuse patient.[facility] HospitalIn the event this information is protected by the Federal Confidentiality of Alcohol and Drug Abuse Patient Records regulations: The Federal rules restrict any use of the information to criminally investigate or prosecute any alcohol or drug abuse patient.[facility] HospitalIn the event this information is protected by the Federal Confidentiality of Alcohol and Drug Abuse Patient Records regulations: The Federal rules restrict any use of the information to criminally investigate or prosecute any alcohol or drug abuse patient.[facility] HospitalIn the event this information is protected by the Federal Confidentiality of Alcohol and Drug Abuse Patient Records regulations: The Federal rules restrict any use of the information to criminally investigate or prosecute any alcohol or drug abuse patient.[facility] Care Teams (unrecognized sec tion and content) Timber Sizer Relationship Specialty Start Date End Date Dalton Art DO [address] [place] [address] PCP - General Family Practice 10/05/21 Timber Sizer Relationship Specialty Start Date End Date Dalton Art DO [address] [place] [address] PCP - General Family Practice 10/05/21 Timber Sizer Relationship Specialty Start Date End Date Dalton Art, [address] [place] [address] PCP - General Family Practice 10/05/21 Timber Sizer Relationship Specialty Start Date End Date Dalton Art, DO [address] [place] [address] PCP - General Family Medicine 10/05/21 Team [...] Dr. Pam Bear MD Emergency Provider Active Timber Sizer Relationship Specialty Start Date End Date Dalton Art DO [address] [place] [address] PCP - General Family Medicine 10/05/21 Timber Sizer Relationship Specialty Start Date End Date Dalton Art DO [address] [facility] [place] [address] PCP - General Family Medicine 10/05/21 Vania Szymanski, STAFF MIDWIFE/APPRENTICESHIP DIRECTOR.PORT PATROL OFFICER [address] [place] [address] Coordinator Skill Training Program Family Medicine 09/10/24 Royer Green STAFF MIDWIFE/APPRENTICESHIP DIRECTOR.PORT PATROL OFFICER [facility] [address] [place] [address] Coordinator Skill Training Program Family Medicine 11/14/24 Team Status: Active Member [...] April 05, 2025 End: April 05, 2025 Timber Sizer Relationship Specialty Start Date End Date Dalton Art DO [address] [facility] [place] [id number] PCP - General Family Medicine 10/05/21 Vania Szymanski, SHANDRA.PORT PATROL OFFICER [address] [place] [address] Coordinator Skill Training Program Family Medicine 09/10/24 Royer Green APRN.PORT PATROL OFFICER Garo [place] [address] Coordinator Skill Training Program Family Medicine 11/14/24 Team Status: Inactive Member [...] Name: NEVAEH FRAGA MD Address: Address: [address] [place] [address] Care Team Personnel Name: NEVAEH FRAGA MD Member Role: Primary Care Physician Address: Address: [address] [place] [address] Name: Lisa Szymanski RN Position: AO RN Member Role: RN Name: MCKAYLA CARSON DO Position: ED Physician Member Role: Attending Physician Address: Address: [facility] [address] Care Team Related Persons Name: URCONIS, [...] BE BASED ON THE PRIMARY CLINICAL RECORDS. [employer] provides no warranty or guarantee of the accuracy or completeness of information in this document.
--- NOTE | 2025-09-26 11:35 | RAD_ITS ---
PROCEDURE: CHEST PA AND LATERAL 09/26/2025 REASON FOR EXAM: COLD SYMPTOMS FOR WEEKS, RULE OUT PNA TECHNIQUE: Procedure Code: RADCXR Modality: DX Procedure: CHEST PA AND LATERAL COMPARISON: 08/23/2025 FINDINGS: Hardware: None. Heart: The heart size is normal. Mediastinum: The mediastinal contour is unremarkable. Lungs: The lungs are clear. No pneumothorax or pleural effusion. Bones: The bones are unremarkable. RAD/Chest PA and Lateral IMPRESSION: NO ACUTE FINDINGS. Reading [facility]
[2025-09-26 13:22] VITALS: BP 129/84; PULSE 83; RESP 16; TEMP 36.6; O2SAT 100
--- NOTE | 2025-09-26 15:34 | EX.ED.DYSGE1 ---
HPI History of Present Illness Chief Complaint: Cold Sx Narrative Narrative: Patient is a 40-year-old male presenting to the emergency department for chest congestion for the past few months. Patient states that he used to live in a basement with black mold prior to this and then started developing the chest congestion type symptoms. He states that they have waxed and waned. He states over the past week he has had some nasal congestion, rhinorrhea and chest congestion. Endorses some intermittent nausea with the sputum production. Denies fever or chills. Denies chest pain or shortness of breath. Denies any GI symptoms including abdominal pain, vomiting, diarrhea, dysuria or hematuria. Patient states he has been taking Mucinex for symptom control. States a few months ago he was treated for a sinus infection and was on doxycycline. [facility] Medical History Acute sinusitis, unspecified Pancreatitis Chronic GERD Tobacco use Anxiety Home Medications ?Medication ?Instructions ?Recorded ?Last Taken ?Type buspirone 5 mg tablet 10 mg PO TID PRN Anxiety 06/10/17 04/05/25 History quetiapine 25 mg tablet 25 mg PO TID 06/28/21 04/05/25 History amoxicillin 875 mg-potassium 1 tab PO BID 5 days #10 tabs 06/15/25 Unknown Rx clavulanate 125 mg tablet doxycycline hyclate 100 mg capsule 100 mg PO BID 08/22/25 Unknown History fluticasone propionate 50 1 spray intranasal DAILY 08/22/25 Unknown History mcg/actuation nasal spray,suspension loratadine 10 mg tablet (Allergy 10 mg PO DAILY 08/22/25 Unknown History Relief (loratadine)) codeine 10 mg-guaifenesin 100 mg/5 10 ml PO 4X/DAY PRN cough 5 days 08/23/25 Unknown Rx mL oral liquid #200 mL prednisone 20 mg tablet 40 mg (2 x 20 mg) PO DAILY 5 days 08/23/25 Unknown Rx #10 tabs famotidine 20 mg tablet 20 mg PO BID #28 TABLETS 09/04/25 Unknown Rx Allergy/AdvReac Type Severity Reaction Status Date / Time Penicillins Allergy Unknown Verified 09/26/25 10:56 sumatriptan (From Imitrex) Allergy Unknown Verified 09/26/25 10:56 sumatriptan succinate (From Allergy Unknown Verified 09/26/25 10:56 Imitrex) amoxicillin (Amoxicillin) AdvReac Nausea/Vom/ Verified 09/26/25 10:56 Diarrhea Surgical History History of herniorrhaphy No significant past surgical history Social History household members: family Smoking Status: Current every day smoker tobacco type: smokeless tobacco Smokeless tobacco user: chewing tobacco how long ago did patient quit smoking: Former cigarette tobacco use, now chew tobacco 2-3 wads daily. alcohol intake: never details: Patient states he currently is not drinking any alcoholic beverages substance use type: does not use ROS ROS ED ROS Narrative see HPI EXAM Physical Exam Narrative Exam Narrative: Vital signs: Reviewed General: Alert and orientedx3. No acute distress. Well appearing, nontoxic. HEENT: Head is normocephalic and atraumatic, sinuses nontender, pupils equal round and reactive. Nares are patent. Oropharynx and throat exams normal. Moist mucous membranes. No posterior oropharynx erythema, swelling or exudates. Neck: Supple without lymphadenopathy nontender Cardiovascular: Regular rate and rhythm, no murmurs. No rubs or gallops. Normal S1 and S2 Respiratory: Clear to auscultation bilaterally. No wheezes, rales, rhonchi Abdominal: Soft and nontender. Normal bowel sounds. No guarding or rebound. Nonsurgical abdomen Extremities: No tenderness. No bruising. Normal range of motion. Normal sensation. Skin: No rash or redness. The rest of the physical exam is unremarkable Const Vital Signs: 09/26/25 10:56 09/26/25 11:34 09/26/25 13:22 Temperature 97.9 F 97.9 F Temperature Source Temporal Pulse Rate 83 83 Respiratory Rate 16 16 Respiratory Effort Normal Non-Labored Respiratory Pattern Normal Blood Pressure 129/84 H 129/84 H Blood Pressure Mean 99 99 Pulse Ox 100 100 Oxygen Delivery Method Room Air MDM MDM MDM Narrative Medical decision making narrative: Patient is a 40-year-old male presenting to the emergency department for chest congestion and URI type symptoms. Patient was seen and examined. Vitals are stable. Patient resting in bed comfortably no acute distress. Given the chronicity of the patient's symptoms we will order a chest x-ray to rule out an underlying pneumonia as well as a viral swab. He appears very well is nontoxic-appearing. Vitals are all stable with no fever and no hypoxia. No tachycardia. I do not think the patient requires fluids or labs. He was offered Motrin and Zofran for symptomatic control. Chest x-ray reviewed by myself, no opacities, pneumothorax or wide mediastinum. Radiology read in agreement. Viral swab is negative. Patient was reevaluated and updated on the findings. Recommended continued supportive care at home. Patient discharged from the Emergency Department. I do not feel that the patient's evaluation reveals any acute reason for admission at this time. I instructed them to either follow-up with their primary care physician or promptly return to the Emergency Department for reevaluation should symptoms worsen or new symptoms develop. I explained what symptoms would indicate the need to return to the emergency department. Shared decision making was used. The patient voiced understanding of the treatment plan and is agreeable with it. Clinical impression URI History & Record Review Discussion w/independent historian: Patient and Friend Lab Data Attestation: I reviewed the patient's lab results. Radiography Chest X-Ray - ED: 2 View, Read by ED Physician, Normal, No Acute Disease and No Infiltrates Diagnostic Testing: Clinical Impression(s) from Imaging Studies Chest X-Ray 09/26/25 11:35 IMPRESSION: NO ACUTE FINDINGS. Reading Location: [facility] Discharge Plan Triage Chief Complaint: Cold Sx ED Provider: Shea Alonzo Dx/Rx/DC Orders Clinical Impression: URI (upper respiratory infection) Instructions: Adult Self-Care for Colds, ED URI, Viral, No Abx (Adult) Prescriptions: No Action buspirone 5 MG tablet 10 mg PO TID PRN (Reason: Anxiety) quetiapine 25 mg tablet 25 mg PO TID amoxicillin-pot clavulanate 875-125 mg tablet 1 tab PO BID 5 Days Qty: 10 0RF doxycycline hyclate 100 mg capsule 100 mg PO BID fluticasone propionate 50 mcg/actuation spray,suspension 1 spray INTRANASAL DAILY loratadine [Allergy Relief (loratadine)] 10 mg tablet 10 mg PO DAILY prednisone 20 mg tablet 40 mg PO DAILY 5 Days Qty: 10 0RF codeine-guaifenesin 10-100 mg/5 mL liquid 10 ml PO 4X/DAY PRN (Reason: cough) 5 Days Qty: 200 0RF famotidine 20 mg tablet 20 mg PO BID Qty: 28 0RF Primary Care Provider: Agnieszka Torres Referrals: Tania Jeffers MD [Med Staff - [employer] Equipment [employer]r, Internal Medicine] - As soon as possible Agnieszka Torres PA [Primary Care Provider, Family Practice] Activity Restrictions/Additional Instructions: Your evaluation in the Emergency Department did not reveal any acute reason for admission. However, I want to emphasize that you may be early in the course of a disease process or illness even if it is not present. For this reason you should follow-up within 24 hours for reevaluation with either your primary care physician or if necessary back here in the Emergency Department. You should return to the Emergency Department immediately if your symptoms worsen or new symptoms develop. Print Language: Swedish Disposition Disposition: Home, Self Care Discharge Date/Time: 09/26/25 13:23
== END 2025-09-26 13:23 | disposition home or self-care (01) ==
PROVIDERS: Emergency Provider Student in an Organized Health Care Education/Training Program; PCP Physician Assistant; Visit Provider Student in an Organized Health Care Education/Training Program
DX: J06.9 Acute upper respiratory infection, unspecified (principal); F17.220 Nicotine dependence, chewing tobacco, uncomplicated
CPT/HCPCS: 71046; 87631; 99283